=== PATIENT | male | born 1980 | race Caucasian/White ===

== ENCOUNTER → 2020-11-11 13:33 | Outpatient (BNVA) | payer OTHER, SELFPAY | PROVIDERS: PCP Internal Medicine; Visit Provider Internal Medicine Endocrinology, Diabetes & Metabolism | DX: E13.9 Other specified diabetes mellitus without complications (principal); S36.209S Unspecified injury of unspecified part of pancreas, sequela; E11.21 Type 2 diabetes mellitus with diabetic nephropathy; Z79.4 Long term (current) use of insulin | CPT/HCPCS: 82947; 99212 ==

== ENCOUNTER 2021-02-21 12:16 | Outpatient (REF) | payer OTHER, SELFPAY ==
--- NOTE | ~2021-02-21 | XR_ITS ---
EXAMINATION: BILATERAL KNEE. CLINICAL INFORMATION: Bilateral knee pain. COMPARISON: None TECHNIQUE: 3 views each knee. FINDINGS: RIGHT KNEE: There is loss of patellofemoral compartment joint space. The medial and lateral compartments are normal. There is mild anterior superior patellar enthesophytes. No abnormal joint effusion seen. There are no loose bodies. LEFT KNEE: There is minimal loss of right base. No visible acute fracture, dislocation or subluxation seen. There are no loose bodies. No abnormal joint effusion seen. XR/XR knee LT 3V IMPRESSION: Mild degenerative changes bilateral patellofemoral compartment joint space. No acute fracture dislocation or loose bodies.
--- NOTE | ~2021-02-21 | XR_ITS ---
EXAMINATION: BILATERAL KNEE. CLINICAL INFORMATION: Bilateral knee pain. COMPARISON: None TECHNIQUE: 3 views each knee. FINDINGS: RIGHT KNEE: There is loss of patellofemoral compartment joint space. The medial and lateral compartments are normal. There is mild anterior superior patellar enthesophytes. No abnormal joint effusion seen. There are no loose bodies. LEFT KNEE: There is minimal loss of right base. No visible acute fracture, dislocation or subluxation seen. There are no loose bodies. No abnormal joint effusion seen. XR/XR knee RT 3V IMPRESSION: Mild degenerative changes bilateral patellofemoral compartment joint space. No acute fracture dislocation or loose bodies.
== END 2021-02-21 12:17 | disposition home or self-care (01) ==
LOC: HO.XRAY 12:16
PROVIDERS: PCP Internal Medicine; Visit Provider Internal Medicine
DX: M25.561 Pain in right knee (principal); M25.562 Pain in left knee
CPT/HCPCS: 73562

== ENCOUNTER 2021-03-11 09:50 | Outpatient (REF) | payer OTHER, SELFPAY ==
[2021-03-11 11:12] LABS: Alanine Aminotransferase 12 U/L (0-40); Albumin Level 4.1 g/dL (3.5-5.0); Alkaline Phosphatase 110 U/L (39-117); Anion Gap 10 (12-20); Aspartate Amino Transferase 24 U/L (5-37); Bilirubin Total 0.3 mg/dL (0.0-1.0); Blood Urea Nitrogen 10 mg/dL (9-16); Carbon Dioxide 24 mmol/L (22-29); Chloride 107 mmol/L (96-108); Cholesterol 146 mg/dL; Estimated Glomerular Filt Rate > 60; Glucose Fasting 80 mg/dL (60-99); HDL Cholesterol 34 mg/dL; LDL Cholesterol Calculated 88 mg/dl; Potassium 4.2 mmol/L (3.3-5.1); Sodium 137 mmol/L (135-145); Triglycerides 122 mg/dL
[2021-03-11 11:25] LABS: Free T4 (Free Thyroxine) 1.33 ng/dL (0.71-1.85); Thyroid Stimulating Hormone 2.45 uIU/mL (0.32-4.0); Vitamin D 25-OH Total 22.4 ng/mL (>30)
[2021-03-11 11:34] LABS: Vitamin B12 208 pg/mL (200-900)
[2021-03-11 11:57] LABS: Creatinine Urine 154.55 mg/dL; Microalbum/Creatinine Ratio Ur 5.8 ug/mg cr
[2021-03-12 19:17] LABS: LDL Cholesterol Direct 96 mg/dL (<100)
[2021-03-12 20:47] LABS: C Peptide 0.13 ng/mL (0.80-3.85)
[2021-03-15 20:21] LABS: Glutamic acid decarboxylase Ab 174 IU/mL (<5)
[2021-03-19 19:52] LABS: Insulinoma associated 2 aatb <5.4 U/mL (<5.4)
[2021-03-21 00:37] LABS: Islet Cell Antibody Screen NEGATIVE (NEGATIVE)
== END 2021-03-11 09:51 | disposition home or self-care (01) ==
LOC: HO.LAB 09:50
PROVIDERS: PCP Internal Medicine; Visit Provider Internal Medicine Endocrinology, Diabetes & Metabolism
DX: E13.9 Other specified diabetes mellitus without complications (principal); S36.209S Unspecified injury of unspecified part of pancreas, sequela
CPT/HCPCS: 36415; 80053; 80061; 82043; 82306; 82607; 83721; 84439; 84443; 84681; 86255; 86341

== ENCOUNTER 2021-09-05 12:06 | Outpatient (REF) | payer OTHER, SELFPAY ==
--- NOTE | ~2021-09-05 | XR_ITS ---
EXAMINATION: XR LUMBOSACRAL SPINE WITH OBLIQUES CLINICAL INFORMATION: Pain COMPARISON: None TECHNIQUE: AP, both oblique, and lateral views of the lumbar spine. Lateral view of the lumbosacral junction. FINDINGS: No acute fracture or traumatic malalignment. Vertebral body heights maintained. Small endplate osteophytes present throughout the upper lumbar spine. Minimal dextro convex lumbar scoliosis. Mild facet arthropathy at L5-S1. Mild sclerosis along the bilateral sacroiliac joints. Paraspinal soft tissues unremarkable. XR/XR lumbar spine 4V min IMPRESSION: No acute findings. Mild lumbar spondylosis as described.
--- NOTE | ~2021-09-05 | XR_ITS ---
EXAMINATION: XR HIP, RIGHT CLINICAL INFORMATION: Pain COMPARISON: None TECHNIQUE: Two views of the right hip. FINDINGS: No acute fracture or dislocation. Femoral head is spherical. Hip joint space preserved. Small marginal osteophytes along the acetabulum. Vascular calcifications. Soft tissues otherwise unremarkable. XR/XR hip RT min 2V IMPRESSION: * No acute findings. * Small acetabular marginal osteophytes. * Vascular calcifications, relatively advanced for patient age. Recommend formal cardiovascular health risk assessment.
== END 2021-09-05 12:07 | disposition home or self-care (01) ==
LOC: HO.XRAY 12:06
PROVIDERS: PCP Internal Medicine; Visit Provider Internal Medicine
DX: M25.551 Pain in right hip (principal); M54.50 Low back pain, unspecified
CPT/HCPCS: 72110; 73502

== ENCOUNTER → 2021-10-25 10:51 | Outpatient (BNVA) | payer OTHER, SELFPAY | PROVIDERS: PCP Internal Medicine; Visit Provider Internal Medicine Endocrinology, Diabetes & Metabolism | DX: E13.9 Other specified diabetes mellitus without complications (principal); S36.209S Unspecified injury of unspecified part of pancreas, sequela; Z79.4 Long term (current) use of insulin | CPT/HCPCS: 82947; 83036; 99212 ==

== ENCOUNTER → 2021-11-01 14:08 | Outpatient (BNVA) | payer OTHER, SELFPAY | PROVIDERS: PCP Internal Medicine; Visit Provider Registered Nurse Diabetes Educator | DX: E13.9 Other specified diabetes mellitus without complications (principal); S36.209S Unspecified injury of unspecified part of pancreas, sequela | CPT/HCPCS: 99211 ==

== ENCOUNTER → 2021-12-13 10:52 | Outpatient (BNVA) | payer OTHER, SELFPAY | PROVIDERS: PCP Internal Medicine; Visit Provider Registered Nurse Diabetes Educator | DX: E13.9 Other specified diabetes mellitus without complications (principal); S36.209S Unspecified injury of unspecified part of pancreas, sequela | CPT/HCPCS: 99211 ==

== ENCOUNTER 2021-12-29 18:35 | Emergency (ER) | payer OTHER, SELFPAY ==
[2021-12-29 18:40] VITALS: BP 143/70; PULSE 102
[2021-12-29 18:41] VITALS: BP 122/73; PULSE 96; RESP 17; TEMP 36.6; O2SAT 96; BMI 25.8
--- NOTE | 2021-12-29 18:43 | ED.ALCOHOL ---
HPI - Alcohol General Chief Complaint: ETOH/Substance Use Stated Complaint: etoh Time Seen by Provider: 12/29/21 18:42 Source: patient and EMS Mode of arrival: EMS Limitations: no limitations History of Present Illness HPI narrative: Patient comes to the emergency room via EMS. A bystander called an ambulance because patient was found sitting in the grass outside of the [employer] mall. According to the patient, he has been drinking we stay all day, patient wants to drive home, but he was unable to find his car, ended up sitting in the grass. Patient states that he did not fall, no head injury, no blood thinners. Related Data Home Medications Medication Instructions Recorded Confirmed citalopram 10 mg tablet 15 mg PO DAILY tab 11/11/20 10/25/21 clonazepam 2 mg tablet 2 mg PO BID PRN tab 11/11/20 10/25/21 clonidine HCl 0.2 mg tablet 0.2 mg PO BID 11/11/20 10/25/21 folic acid 1 mg tablet 1 mg PO DAILY 11/11/20 10/25/21 lamotrigine 25 mg tablet 25 mg PO DAILY tab 11/11/20 10/25/21 magnesium 250 mg tablet 250 mg PO BID tab 11/11/20 10/25/21 quetiapine 400 mg tablet (Seroquel) 400 mg PO BEDTIME tab 11/11/20 10/25/21 thiamine HCl (vitamin B1) 50 mg 25 mg PO DAILY tab 11/11/20 10/25/21 tablet trazodone 100 mg tablet 200 mg PO BEDTIME 11/11/20 10/25/21 Previous Rx's Medication Instructions Recorded pen needle, diabetic 32 gauge x #150 ea 11/11/20 (BD July 2nd Gen Pen Needle) blood sugar diagnostic (FreeStyle #150 ea 03/08/21 Lite Strips) lancets 33 gauge (TRUEplus Lancets) #200 ea 03/08/21 insulin glargine 100 unit/mL (3 48 unit (0.48 mL) SUBCUT QAM 30 04/07/21 mL) subcutaneous pen (Lantus Days #15 ml Solostar U-100 Insulin) glucagon 3 mg/actuation nasal 3 mg INTRANASAL ONCE #1 ea 10/25/21 spray (Baqsimi) insulin aspart U-100 100 unit/mL 1 - 25 unit (0.01 - 0.25 mL) 10/31/21 (3 mL) subcutaneous pen (Novolog SUBCUT QID #30 ml Flexpen U-100 Insulin aspart) Allergies Allergy/AdvReac Type Severity Reaction Status Date / Time meropenem [MEROPENEM] Allergy Unknown SWELLING Unverified 10/25/21 11:00 penicillin G procaine Allergy Unknown itching Verified 10/25/21 11:00 Penicillins [PENICILLINS] Allergy Unknown SWELLING Unverified 10/25/21 11:00 Review of Systems Review of Systems: Constitutional : No Weight loss, No Fever, No Chills, No Night Sweats, No Fatigue, No Malaise ENT/Mouth : No Hearing loss, No Ear Pain, No Nasal Congestion, No Sinus Pain, No Hoarseness, No sore throat, No Rhinorrhea, No Swallowing Difficulty Eyes: No Eye Pain, No Swelling, No Redness, No Foreign Body, No Discharge, No Vision Changes Cardiovascular : No Chest Pain, No SOB, No Dyspnea on Exertion, No Orthopnea, No Edema, No Palpitations Respiratory : No Cough, No Sputum, No Wheezing, No Smoke Exposure, No Dyspnea Gastrointestinal : Complaining of nausea and vomiting, No Diarrhea, No Constipation, No abdominal Pain, No Hematochezia, No Melena Genitourinary : no irregular bleeding, No Dysuria, No Urinary Frequency, No Hematuria, No Urinary Incontinence, No Urgency, No Flank Pain, No Urinary Flow Changes, No Hesitancy Musculoskeletal : No joint pain, No Myalgias, No Joint Swelling Skin : No Skin Lesions, No rash Neuro : No Weakness, No Numbness, No Paresthesias, No Loss of Consciousness, No Dizziness, No Headache Psych : No Anxiety/Panic, No Depression, No SI/HI/AH/VH, No Social Issues, Heme/Lymph: No Bruising, No Bleeding,No Lymphadenopathy Endocrine : No Polyuria, No Polydipsia, No Temperature Intolerance [facility] Past Medical History Medical History Bipolar disorder 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 Mother Diabetes Social History Social History (Updated 10/25/21 @ 11:01 by VINAY Francisco) Alcohol intake: never Patient Tobacco Use Status: Never used Tobacco Advance Directives: No Advance Directives Information Provided: Yes Physical Exam ED Vital Signs: Vital Signs - 24 hr 12/29/21 18:41 Temperature 97.8 F Pulse Rate 96 Respiratory Rate 17 Blood Pressure 122/73 Pulse Oximetry 96 BMI result Body Mass Index 25.8 Const Other: Appearance: Alert. No acute distress, intoxicated Eyes: Pupils equal, round and reactive to light. ENT: Pharynx normal. Neck: Normal inspection. Neck supple. No lymph nodes noted. No crepitus CVS: Normal heart rate and rhythm. Pulses normal. Normal S1 and S2 Respiratory: No respiratory distress. Breath sounds normal. No Wheezing. No rales Abdomen: Soft and nontender. No rigidity. No distention. Actively vomiting Skin: Skin warm and dry. Normal skin color. Normal skin turgor. Extremities: No lower extremity edema. No Lacerations. No Rash Neuro: A bit slurred speech, cranial nerves 2-12 grossly intact Psych: calm, cooperative, normal affect Course Course Course Narrative: Patient was given p.o. Zofran. Patient declined IM medication. Patient denies hitting his head or losing consciousness. Admits to heavily drinking alcohol today. Patient denies SI/HI Plan is to metabolize to freedom, physician of sedation started at 18:52 Patient had been walking around the emergency room, patient stated that he felt better. Patient did not wait for his discharge papers. Per nursing, patient had a steady gait, patient eloped MDM - Alcohol Lab Data Labs: Lab Results 12/29/21 Range/Units 19:41 POC Glucose 259 H (60-115) mg/dL Discharge Plan Discharge Clinical Impression: Alcohol intoxication Patient Disposition: Elopement Prescriptions: No Action (DME) FreeStyle Lite Strips Strip See Rx Instructions .Route Qty: 150 11RF Rx Instructions: Four times a day (DME) lancets [TRUEplus Lancets] 33 gauge misc See Rx Instructions .Route Qty: 200 11RF Rx Instructions: Four times a day Lantus Solostar U-100 Insulin 100 unit/mL (3 mL) insulin pen 48 unit subcut QAM 30 Days Qty: 15 3RF insulin aspart U-100 [Novolog Flexpen U-100 Insulin] 100 unit/mL (3 mL) insulin pen 1 - 25 unit subcut QID Qty: 30 3RF quetiapine [Seroquel] 400 mg tablet 400 mg PO BEDTIME 0RF trazodone 100 mg tablet 200 mg PO BEDTIME 0RF folic acid 1 mg tablet 1 mg PO DAILY 0RF magnesium 250 mg tablet 250 mg PO BID 0RF thiamine HCl (vitamin B1) 50 mg tablet 25 mg PO DAILY 0RF lamotrigine 25 mg tablet 25 mg PO DAILY 0RF citalopram 10 mg tablet 15 mg PO DAILY 0RF clonazepam 2 mg tablet 2 mg PO BID PRN0RF Rx Instructions: administer 30 minutes before bedtime clonidine HCl 0.2 mg tablet 0.2 mg PO BID 0RF (DME) pen needle, diabetic [BD July 2nd Gen Pen Needle] 32 gauge x 5/32 needle See Rx Instructions .MEDSUPPLY Qty: 150 4RF Rx Instructions: 5 times a day Baqsimi 3 mg/actuation spray,non-aerosol 3 mg intranasal ONCE Qty: 1 4RF
[2021-12-29] MEDS: Ondansetron ODT 4 MG TAB.RAPDIS TRANSLINGU (19:18)
[2021-12-29 20:28] LABS: Glucose, Whole Blood 259 mg/dL (60-115)
--- NOTE | 2021-12-29 23:32 | PC.NURSE ---
Pt requesting to leave, aware. Pt ambulating with a steady gait. agreeable to DC. Pt eloping from hospital bed prior to discharge paperwork being prepared by . aware.
== END 2021-12-29 23:33 | disposition left against medical advice (07) ==
PROVIDERS: Emergency Provider Emergency Medicine
DX: F10.920 Alcohol use, unspecified with intoxication, uncomplicated (principal); Y90.9 Presence of alcohol in blood, level not specified; E11.9 Type 2 diabetes mellitus without complications; Z79.4 Long term (current) use of insulin
CPT/HCPCS: 82947; 99283; 99284

== ENCOUNTER 2022-01-06 10:00 | Outpatient (RCR) | payer OTHER, SELFPAY ==
[2021-11-15 10:11] VITALS: BP 127/87; PULSE 91; O2SAT 97
== END 2022-02-21 08:16 | disposition home or self-care (01) ==
LOC: HO.PT 10:00
PROVIDERS: PCP Internal Medicine; Visit Provider Internal Medicine
DX: M25.561 Pain in right knee (principal); M25.562 Pain in left knee
CPT/HCPCS: 97110; 97140; 97162; 97530

== ENCOUNTER 2022-01-27 19:22 | Inpatient (IN) | payer OTHER, SELFPAY ==
[2022-01-27] VITALS (14 sets, daily range): BP systolic 110–166; BP diastolic 60–96; PULSE 100–130; RESP 16–30; TEMP 33–36.4; O2SAT 10–100; BMI 26.8
--- NOTE | 2022-01-27 | ECG_ITS ---
Test Reason : cx pain Blood Pressure : / mmHG Vent. Rate : 126 BPM Atrial Rate : 126 BPM P-R Int : 130 ms QRS Dur : 086 ms QT Int : 312 ms P-R-T Axes : 063 023 024 degrees QTc Int : 451 ms Sinus tachycardia Possible Left atrial enlargement Minimal voltage criteria for LVH, may be normal variant ( Sumit product ) Borderline ECG When compared with ECG of 13-JAN-2019 09:58, T wave inversion now evident in Inferior leads Referred By: Evelina Gamino Electronically Signed By:APOORVA GONZALES MD
--- NOTE | ~2022-01-27 | XR_ITS ---
EXAMINATION: XR CHEST CLINICAL INFORMATION: Endotracheal tube and central line placement COMPARISON: 01/27/2022 TECHNIQUE: Frontal view of the chest was obtained. FINDINGS: There is an endotracheal tube in good position breech centimeters above the level the juan. There is a right internal jugular vein central venous catheter with distal tip in the SVC. No pneumothorax There is a nasogastric tube extending into the body of the stomach. Long bones are present. There is increasing mild perihilar interstitial and groundglass opacities diffusely within the bilateral lung parenchyma. XR/XR chest 1V IMPRESSION: Support lines and tubes in good positions as described above. Increasing interstitial and groundglass opacities in the bilateral lung parenchyma likely representing underlying edema
--- NOTE | ~2022-01-27 | XR_ITS ---
EXAMINATION: XR CHEST CLINICAL INFORMATION: Chest pain COMPARISON: 01/13/2019 TECHNIQUE: Frontal view of the chest was obtained. FINDINGS: Low lung volumes. Given this there is no convincing evidence for an acute process. No obvious failure or infiltrate. No effusion. Air-filled bowel below left hemidiaphragm. XR/XR chest 1V IMPRESSION: Low lung volumes. No convincing evidence for an acute finding in the chest.
--- NOTE | ~2022-01-27 | CT_ITS ---
EXAMINATION: CT soft tissue neck wo con, CT head/brain wo con, CT abdomen pelvis wo con CLINICAL INFORMATION: Abdominal pain. Altered mental status. Neck swelling. COMPARISON: CT head 01/13/2019. CT abdomen pelvis 01/13/2019. TECHNIQUE: Unenhanced CT the head, unenhanced CT of the neck, unenhanced CT of abdomen pelvis all with multiple coronal and sagittal reformatted images. Intravenous Contrast: None This CT examination was performed using dose optimization techniques as appropriate, variously including the following: *Automated exposure control *Adjustment of mA and/or kV according to patient size (this includes techniques or standardized protocols for targeted exams where dose is matched to indication/reason for exam; i.e. extremities or head) *Use of iterative reconstruction technique DLP: 2514 mGy-cm FINDINGS: CT head: Mild diffuse commensurate prominence of ventricles and sulci is noted. No intracranial hemorrhage, tumors or acute infarcts are visualized. Segmental calcific atherosclerosis of the cavernous portions of the internal carotid arteries. Normal appearance of the orbits and globes. No significant opacification of the visualized paranasal sinuses, mastoid air cells and middle ear cavities. CT NECK: Endotracheal and enteric tubes are noted. A right internal jugular catheter is partially visualized. Making allowances for the endotracheal and enteric tubes, the larynx and pharynx are normal in appearance. The parotid, submandibular and visualized sublingual glands are normal in appearance. No cervical lymphadenopathy identified. The thyroid is normal in appearance. Dense bilateral carotid bulb calcific atherosclerotic plaques are noted. No supraclavicular tumors visualized. Partial visualization is made of bibasilar dependent atelectasis of the lungs. No pneumothoraces are noted. Scattered calcific atherosclerosis is noted within the transverse aorta. The endotracheal tube terminates approximately 3.5 cm superior to the juan. CT abdomen pelvis: Lung bases: Partially visualized bibasilar atelectasis. Liver: Diffuse hepatic steatosis. Biliary system: Normal appearance of the gallbladder. No biliary duct dilatation. Pancreas: Scattered coarse pancreatic dystrophic calcifications. No acute appearing peripancreatic inflammatory changes. Spleen: Normal. Adrenal glands: Normal. Kidneys: No hydronephrosis or perinephric inflammatory changes. 1 mm nonobstructing calculus within the interpolar segment of the right kidney. No ureterectasis. Urinary bladder: Decompressed. Philippe catheter in place with nondependent gas and urinary bladder lumen. Gastrointestinal system: Borderline concentric mural thickening of the descending colon is noted though: Wall is suboptimally visualized in the absence of intravenous contrast agent. The terminal ileum is normal in appearance. The appendix is not definitively visualized. No pericecal inflammatory changes noted. No free intraperitoneal fluid or gas collections. Normal appearance of the sigmoid and small bowel mesentery is. Enteric tube terminates within the stomach which demonstrates moderate fluid distention. Abdominal wall: No hernias. Viscera: Normal appearance of the prostate and seminal vesicles. Abdominal lymphovascular system: Mild scattered calcific atherosclerosis. Retroaortic left renal vein. Diffuse vascular calcifications which may represent Monckeberg type vascular calcifications. Osseous structures: No suspicious abnormalities. CT/CT soft tissue neck wo con IMPRESSION: Unenhanced CT the head: *No acute intercranial abnormalities. Unenhanced CT of the neck: *No tumors or lymphadenopathy identified. No soft tissue hematomas or suspicious fluid collections. *Right internal jugular catheter coursing within the superior vena cava. *No tracheal tube terminating 3.5 cm superior to the juan. *Partially visualized enteric tube coursing within the esophagus. CT abdomen and pelvis: *Borderline concentric mural thickening of the descending colon which could represent colitis. The descending colonic wall measures up to 9 mm in width, slightly above normal limits of size. No thoracic descending colon is decompressed limiting precise evaluation of the wall of the descending colon. No pericolonic inflammatory changes. No free intraperitoneal fluid or gas collections. No additional possible acute abnormalities identified. *Diffuse hepatic steatosis. *Diffuse atherosclerotic and possible Monckeberg type vascular calcifications with the latter possibly secondary to diabetes mellitus or long-standing renal disease. *Single nonobstructing punctate 1 mm calculus within the right renal pelvis. *Diffuse pancreatic dystrophic calcification suspicious for the sequela of prior chronic pancreatitis. No evidence of acute pancreatitis.
--- NOTE | ~2022-01-27 | XR_ITS ---
EXAMINATION: XR CHEST CLINICAL INFORMATION: Suspected pneumothorax. COMPARISON: Chest done on 01/27/2022. TECHNIQUE: Frontal view of the chest was obtained. FINDINGS: The tip of the right IJ catheter is projecting at the cavoatrial junction. The tip of the endotracheal tube is located approximately 5.5 cm above the level of the juan. The tip of the NG tube is below the level of the diaphragm and is outside the [id number]. Bibasilar airspace opacities are noted (left greater than right), likely represent hypoventilatory, atelectatic changes. No evidence of any definite pneumothorax. Possible small left-sided pleural effusion. The cardiac mediastinal silhouette is within normal limits. XR/XR chest 1V IMPRESSION: 1. The tip of the NG tube is subdiaphragmatic however is outside the [id number]. 2. The tip of the right IJ central line and endotracheal tube appear in satisfactory positions 3. Bibasilar airspace disease (left greater than right), and trace left-sided pleural effusion. 4. No radiographic evidence of any pneumothorax.
--- NOTE | 2022-01-27 19:42 | ED.CHESTPAIN ---
HPI - Chest Pain General Chief Complaint: Chest Pain Stated Complaint: tachycardia Time Seen by Provider: 01/27/22 19:35 Source: patient Mode of arrival: EMS Limitations: no limitations History of Present Illness MD complaint: chest pain Pertinent past history: other (alcoholism, diabetes, pancreatitis) Onset (ago): minute(s) (just prior to arrival) Timing of current episode: constant Prior episodes: No Onset: during rest Pain location: substernal Pain radiation: none Severity: moderate Quality: other ( pain ) Relieving factors: nothing Exacerbating factors: nothing Context: other (denies drinking or drug use, states it just happened he didn't eat dinner tonight, sugars have been in the 200s. ) Associated symptoms: nausea, vomiting, diaphoresis and dyspnea Treatment prior to arrival: other (EMS gave calcium prior to arrival for peaked t waves) Related Data Home Medications Medication Instructions Recorded Confirmed citalopram 10 mg tablet 15 mg PO DAILY 11/11/20 10/25/21 clonazepam 2 mg tablet 2 mg PO BID PRN 11/11/20 10/25/21 clonidine HCl 0.2 mg tablet 0.2 mg PO BID 11/11/20 10/25/21 folic acid 1 mg tablet 1 mg PO DAILY 11/11/20 10/25/21 lamotrigine 25 mg tablet 25 mg PO DAILY 11/11/20 10/25/21 magnesium 250 mg tablet 250 mg PO BID 11/11/20 10/25/21 quetiapine 400 mg tablet (Seroquel) 400 mg PO BEDTIME 11/11/20 10/25/21 thiamine HCl (vitamin B1) 50 mg 25 mg PO DAILY 11/11/20 10/25/21 tablet trazodone 100 mg tablet 200 mg PO BEDTIME 11/11/20 10/25/21 Previous Rx's Medication Instructions Recorded pen needle, diabetic 32 gauge x #150 ea 11/11/20 (BD July 2nd Gen Pen Needle) blood sugar diagnostic (FreeStyle #150 ea 03/08/21 Lite Strips) lancets 33 gauge (TRUEplus Lancets) #200 ea 03/08/21 insulin glargine 100 unit/mL (3 48 unit (0.48 mL) subcut QAM 30 04/07/21 mL) subcutaneous pen (Lantus days #15 mL Solostar U-100 Insulin) glucagon 3 mg/actuation nasal 3 mg intranasal ONCE #1 ea 10/25/21 spray (Baqsimi) insulin aspart U-100 100 unit/mL 1 - 25 unit (0.01 - 0.25 mL) 10/31/21 (3 mL) subcutaneous pen (Novolog subcut QID #30 mL Flexpen U-100 Insulin aspart) Allergies Allergy/AdvReac Type Severity Reaction Status Date / Time meropenem [MEROPENEM] Allergy Unknown SWELLING Unverified 10/25/21 11:00 penicillin G procaine Allergy Unknown itching Verified 10/25/21 11:00 Penicillins [PENICILLINS] Allergy Unknown SWELLING Unverified 10/25/21 11:00 Review of Systems Review of Systems: Constitutional : No Weight loss, No Fever, No Chills ENT/Mouth : No sore throat, No Rhinorrhea Eyes: No Eye Pain, No Swelling Cardiovascular : pos Chest Pain, pos SOB, no Dyspnea on Exertion, No Orthopnea, No Edema, No Palpitations Respiratory : No Cough, No Sputum Gastrointestinal : pos Nausea, No Vomiting, No Diarrhea, No abdominal Pain, No Hematochezia, No Melena Genitourinary : No Dysuria, No Urinary Frequency Musculoskeletal : No joint pain, No Myalgias, No Joint Swelling Skin : No Skin Lesions, No rash Neuro : No Weakness, No Numbness, No Dizziness, No Headache Psych : No Anxiety/Panic, No Depression Heme/Lymph: No Bruising, No Lymphadenopathy Endocrine : No Polyuria, No Polydipsia All other systems reviewed and are negative [facility] Past Medical History Attestation statement: The following information was validated with the patient. 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 Mother Diabetes Social History Social History Alcohol intake: current Alcohol intake frequency: 0-2 drinks per day Patient Tobacco Use Status: Never used Tobacco Use of substances other than those prescribed or required for medical reasons: No Advance Directives: No Physical Exam Vital Signs: Vital Signs: Last Vital Signs Temp 97.5 F 01/27/22 19:36 Pulse 127 H 01/28/22 00:29 Resp 18 01/28/22 00:29 BP 121/70 01/28/22 00:29 Pulse Ox 100 01/28/22 00:29 O2 Del Method 01/27/22 22:30 O2 Flow Rate 10 01/27/22 21:46 FiO2 100 01/27/22 23:51 Oxygen Flow Rate 2 01/27/22 19:29 BMI result Body Mass Index 26.8 Appearance: Alert. Oriented X3. Anxious mild acute distress. Eyes: Pupils equal, round and reactive to light. ENT: Pharynx very dry MM Neck: Normal inspection. Neck supple. CVS: tachycardic heart rate and rhythm. Pulses normal. Respiratory: No respiratory distress. Breath sounds normal. Abdomen: Soft and mildly distended Skin: Skin warm and diaphoretic. Normal skin color. Normal skin turgor. Extremities: No lower extremity edema. No calf ttp Neuro: Oriented X 3. No motor deficit. No sensory deficit. Course Course Course Narrative: suspect AKA, DKA, denies any other toxic ingestion at this time when questioned started on low dose insulin drip lactic acid 19 patient now states he drank very heavy last night at least 3 pints of hard liquor patient started to scream that he had difficulty breathing, voice became muffled - posterior view of throat showed swelling of soft palate/uvula clear in nature and boggy consistent with allergic reaction. At this time concern for upper airway reaction - IM epi, benadryl, solumedrol, pepcid ordered. 6.0 ETT at bedside, patient placed on cool mist. Unknown cause of reaction given no medications he would have reaction to. Has taken insulin and other medications before. Doing better after medications. Patient also states this happened at home and went away around 7pm. patient very anxious again screaming he can't breathe at this time will intubate patient for airway protection sent off tox labs discussed with poison control based off labs at this time they state they cannot recommend fomepizole - will have fellow call us. initial osm gap 21 discussion with poison control no large osm gap at this time not strongly convinced that the patient has toxic alcohol if AG is increasing and serum osm is decreasing then would suspect toxic alcohol and would need to start fomepizole. We talked more about his presentation along with his angioedema and intubation decision to start fomepizole was made tachycardia, lactic acidosis, LFTs, plt count due to ETOH and toxic/metabolic acidosis not infection or severe sepsis patient maxed on versed, propofol and fentanyl still awake and attempting to talk / reach up at ETT tube - will start on precedex ICU PA aware Procedures Procedure Narrative Procedure Narrative: limited view bedside ECHO - parasternal, subxiphoid and apical - no effusion seen Central Line Placement Right IJ: Time Out Performed: Yes Patient Placed on Monitor/Pulse Ox: Yes MD Prep: mask, gown and gloves Central Line Prep: Chlorhexidine scrub and sterile drapes applied Local Anesthetic: lidocaine 1% Amount of anesthesia used (mL): 3 Central Line Lumen Inserted: triple Post Procedure: sutured in place, good blood return, all ports aspirated, flushed, capped and sterile dressing applied Post Procedure X-Ray: tip of catheter in good position and no pneumothorax seen Patient Tolerated Procedure: well and no complications Complications: none Additional Comments: US guided Intubation Time out performed: Yes sedative: Etomidate Mg Given: 20 paralytic: Rocuronium Mg Given: 75 Laryngoscope: other (glidescope 4.0) ET Tube Size: 6 ET Tube Uncuffed: Yes Tube Secured Depth (cm): 22 Tube Secured Location: teeth Tube Placement Confirmation: visualized tube passing through cords, equal breath sounds bilaterally, no breath sounds over epigastrium and confirmation by capnometry Patient Tolerated Procedure: well Intubation Complications: none Additional Comments: severely swollen cords, red, swollen very tight - 6.0 tube passed. boggy and edematous. MDM - Chest Pain MDM Narrative Medical decision making narrative: 41 yo male with hx of IDDM, pancreatitis due to ETOH abuse, here with c/o chest pain and dyspnea while watching TV - he has a dry mouth and reports dark colored urine today. At this time will obtain basic labs, troponin, EKG< CXR, ddimer. IVF x 2L, zofran. He has peaked t waves on EKG could be hyperkalemia and DKA - IV bicarb, albuterol ordered as well. Given calcium en route. Has hx of ETOH pancreatitis as well - IV ativan ordered could be component of withdrawal states his last drink was last night. Just seen here 12/29 for intoxication Lab Data Result diagrams: 01/27/22 19:58 01/27/22 19:58 Labs: Lab Results 01/27/22 01/27/22 01/27/22 Range/Units 19:41 19:57 19:57 WBC (4.8-10.8) X10*3/uL RBC (4.60-5.80) X10*6/uL Hgb (14.0-18.0) g/dl Hct (42.0-52.0) % MCV (80.0-98.0) fL MCH (27.0-33.0) pg MCHC (31.0-36.0) g/dl RDW (11.0-16.0) % Plt Count (160-400) X10*3/uL MPV (9.4-12.4) fL Immature Gran % (Auto) (0.0-0.4) % Neut % (Auto) (45-73) % Lymph % (Auto) (20-40) % Cole % (Auto) (2-11) % Eos % (Auto) (0-4) % Baso % (Auto) (0-2) % Lymph # (Auto) (1.2-4.9) X10*3/uL Cole # (Auto) (0.1-1.2) X10*3/uL Eos # (Auto) (0.0-0.4) X10*3/uL Baso # (Auto) (0.0-0.2) X10*3/uL Abs Immat Gran (auto) (0.00-0.03) X10*3/uL Absolute Neuts (auto) (2.0-8.3) x10*3/uL Absolute Nucleated RBC (0.0-0.012) X10*3/uL Nucleated RBC % (auto) (0.0-0.2) /100WBC Smear Tech's Comments PT (9.9-13.0) SEC INR (0.9-1.1) D-Dimer High Sensitivty NG/ML VBG pH VBG pCO2 VBG pO2 VBG HCO3 VBG O2 Saturation VBG Base Excess Sodium (135-145) mmol/L Potassium (3.3-5.1) mmol/L Chloride (96-108) mmol/L Carbon Dioxide (22-29) mmol/L Anion Gap BUN (9-16) mg/dL Creatinine (0.5-1.4) mg/dL Estim Creat Clear Calc Estimated GFR POC Glucose 356 H* (60-115) mg/dL Random Glucose (60-115) mg/dL Osmolality (281-305) mosm/kg Lactic Acid 19.6 H* (0.5-2.0) mmol/L Lactic Acid F/U @ 2Hr (0.5-2.0) mmol/L Calcium (8.4-10.2) mg/dL Magnesium (1.6-2.6) mg/dL Total Bilirubin (0.0-1.0) mg/dL Direct Bilirubin (0.0-0.5) mg/dL AST (5-37) U/L ALT (0-40) U/L Alkaline Phosphatase (39-117) U/L Troponin I High Sens < 3.5 (<3.5-35.0) ng/L Total Protein (6.5-8.0) g/dL Albumin (3.5-5.0) g/dL Lipase (8-78) U/L Urine Color Urine Appearance Urine pH (5.0-8.0) Ur Specific [place] (1.005-1.025) Urine Protein (NEG-TRACE) MG/DL Urine Glucose (UA) (NEG) MG/DL Urine Ketones (NEG) MG/DL Urine Blood (NEG) Urine Nitrite (NEG) Ur Leukocyte Esterase (NEG) Urine RBC (0) /HPF Urine WBC (0-4) /HPF Ur Squamous Epith Cells /LPF Urine Bacteria /LPF Hyaline Casts /LPF Granular Casts /LPF Urine Mucus /LPF Urine Osmolality (373-1093) mosm/kg Urine Opiates Screen (Not Detect) Urine Fentanyl Screen (Not Detect) Ur Barbiturates Screen (Not Detect) Ur Phencyclidine Scrn (Not Detect) Ur Amphetamines Screen (Not Detect) U Benzodiazepines Scrn (Not Detect) Urine Cocaine Screen (Not Detect) U Marijuana (THC) Screen (Not Detect) Volat Analys Perform On Ethyl Alcohol mg/dL Methyl Alcohol Level Acetone, Qual (Negative) COVID-19 (ALLEN) (Negative) COVID-19 Clin Com 01/27/22 01/27/22 01/27/22 Range/Units 19:57 19:57 19:57 WBC (4.8-10.8) X10*3/uL RBC (4.60-5.80) X10*6/uL Hgb (14.0-18.0) g/dl Hct (42.0-52.0) % MCV (80.0-98.0) fL MCH (27.0-33.0) pg MCHC (31.0-36.0) g/dl RDW (11.0-16.0) % Plt Count (160-400) X10*3/uL MPV (9.4-12.4) fL Immature Gran % (Auto) (0.0-0.4) % Neut % (Auto) (45-73) % Lymph % (Auto) (20-40) % Cole % (Auto) (2-11) % Eos % (Auto) (0-4) % Baso % (Auto) (0-2) % Lymph # (Auto) (1.2-4.9) X10*3/uL Cole # (Auto) (0.1-1.2) X10*3/uL Eos # (Auto) (0.0-0.4) X10*3/uL Baso # (Auto) (0.0-0.2) X10*3/uL Abs Immat Gran (auto) (0.00-0.03) X10*3/uL Absolute Neuts (auto) (2.0-8.3) x10*3/uL Absolute Nucleated RBC (0.0-0.012) X10*3/uL Nucleated RBC % (auto) (0.0-0.2) /100WBC Smear Tech's Comments PT (9.9-13.0) SEC INR (0.9-1.1) D-Dimer High Sensitivty NG/ML VBG pH Cancelled VBG pCO2 Cancelled VBG pO2 Cancelled VBG HCO3 Cancelled VBG O2 Saturation Cancelled VBG Base Excess Cancelled Sodium (135-145) mmol/L Potassium (3.3-5.1) mmol/L Chloride (96-108) mmol/L Carbon Dioxide (22-29) mmol/L Anion Gap BUN (9-16) mg/dL Creatinine (0.5-1.4) mg/dL Estim Creat Clear Calc Estimated GFR POC Glucose (60-115) mg/dL Random Glucose (60-115) mg/dL Osmolality (281-305) mosm/kg Lactic Acid (0.5-2.0) mmol/L Lactic Acid F/U @ 2Hr (0.5-2.0) mmol/L Calcium (8.4-10.2) mg/dL Magnesium (1.6-2.6) mg/dL Total Bilirubin (0.0-1.0) mg/dL Direct Bilirubin (0.0-0.5) mg/dL AST (5-37) U/L ALT (0-40) U/L Alkaline Phosphatase (39-117) U/L Troponin I High Sens (<3.5-35.0) ng/L Total Protein (6.5-8.0) g/dL Albumin (3.5-5.0) g/dL Lipase (8-78) U/L Urine Color Urine Appearance Urine pH (5.0-8.0) Ur Specific [place] (1.005-1.025) Urine Protein (NEG-TRACE) MG/DL Urine Glucose (UA) (NEG) MG/DL Urine Ketones (NEG) MG/DL Urine Blood (NEG) Urine Nitrite (NEG) Ur Leukocyte Esterase (NEG) Urine RBC (0) /HPF Urine WBC (0-4) /HPF Ur Squamous Epith Cells /LPF Urine Bacteria /LPF Hyaline Casts /LPF Granular Casts /LPF Urine Mucus /LPF Urine Osmolality (373-1093) mosm/kg Urine Opiates Screen (Not Detect) Urine Fentanyl Screen (Not Detect) Ur Barbiturates Screen (Not Detect) Ur Phencyclidine Scrn (Not Detect) Ur Amphetamines Screen (Not Detect) U Benzodiazepines Scrn (Not Detect) Urine Cocaine Screen (Not Detect) U Marijuana (THC) Screen (Not Detect) Volat Analys Perform On Ethyl Alcohol 77 mg/dL Methyl Alcohol Level Acetone, Qual (Negative) COVID-19 (ALLEN) Negative (Negative) COVID-19 Clin Com See Note 01/27/22 01/27/22 01/27/22 Range/Units 19:58 19:58 19:58 WBC 11.7 H (4.8-10.8) X10*3/uL RBC 5.21 (4.60-5.80) X10*6/uL Hgb 15.4 (14.0-18.0) g/dl Hct 49.1 (42.0-52.0) % MCV 94.2 (80.0-98.0) fL MCH 29.6 (27.0-33.0) pg MCHC 31.4 (31.0-36.0) g/dl RDW 16.0 (11.0-16.0) % Plt Count 125 L (160-400) X10*3/uL MPV 10.2 (9.4-12.4) fL Immature Gran % (Auto) 1.3 H (0.0-0.4) % Neut % (Auto) 79.2 H (45-73) % Lymph % (Auto) 11.1 L (20-40) % Cole % (Auto) 7.8 (2-11) % Eos % (Auto) 0.2 (0-4) % Baso % (Auto) 0.4 (0-2) % Lymph # (Auto) 1.3 (1.2-4.9) X10*3/uL Cole # (Auto) 0.9 (0.1-1.2) X10*3/uL Eos # (Auto) 0.0 (0.0-0.4) X10*3/uL Baso # (Auto) 0.1 (0.0-0.2) X10*3/uL Abs Immat Gran (auto) 0.15 H (0.00-0.03) X10*3/uL Absolute Neuts (auto) 9.2 H (2.0-8.3) x10*3/uL Absolute Nucleated RBC 0.000 (0.0-0.012) X10*3/uL Nucleated RBC % (auto) 0.0 (0.0-0.2) /100WBC Smear Tech's Comments VERIFIED PT 12.3 (9.9-13.0) SEC INR 1.1 (0.9-1.1) D-Dimer High Sensitivty 263 NG/ML VBG pH VBG pCO2 VBG pO2 VBG HCO3 VBG O2 Saturation VBG Base Excess Sodium 138 (135-145) mmol/L Potassium 4.7 (3.3-5.1) mmol/L Chloride 90 L (96-108) mmol/L Carbon Dioxide < 5 L* D (22-29) mmol/L Anion Gap TNP BUN 10 (9-16) mg/dL Creatinine 1.41 H (0.5-1.4) mg/dL Estim Creat Clear Calc 63.8 Estimated GFR 55 POC Glucose (60-115) mg/dL Random Glucose 356 H* (60-115) mg/dL Osmolality (281-305) mosm/kg Lactic Acid (0.5-2.0) mmol/L Lactic Acid F/U @ 2Hr (0.5-2.0) mmol/L Calcium 10.2 D (8.4-10.2) mg/dL Magnesium 2.3 (1.6-2.6) mg/dL Total Bilirubin 0.5 (0.0-1.0) mg/dL Direct Bilirubin 0.2 (0.0-0.5) mg/dL AST 83 H (5-37) U/L ALT 42 H (0-40) U/L Alkaline Phosphatase 194 H D (39-117) U/L Troponin I High Sens (<3.5-35.0) ng/L Total Protein 9.2 H D (6.5-8.0) g/dL Albumin 4.9 (3.5-5.0) g/dL Lipase 22 (8-78) U/L Urine Color Urine Appearance Urine pH (5.0-8.0) Ur Specific [place] (1.005-1.025) Urine Protein (NEG-TRACE) MG/DL Urine Glucose (UA) (NEG) MG/DL Urine Ketones (NEG) MG/DL Urine Blood (NEG) Urine Nitrite (NEG) Ur Leukocyte Esterase (NEG) Urine RBC (0) /HPF Urine WBC (0-4) /HPF Ur Squamous Epith Cells /LPF Urine Bacteria /LPF Hyaline Casts /LPF Granular Casts /LPF Urine Mucus /LPF Urine Osmolality (373-1093) mosm/kg Urine Opiates Screen (Not Detect) Urine Fentanyl Screen (Not Detect) Ur Barbiturates Screen (Not Detect) Ur Phencyclidine Scrn (Not Detect) Ur Amphetamines Screen (Not Detect) U Benzodiazepines Scrn (Not Detect) Urine Cocaine Screen (Not Detect) U Marijuana (THC) Screen (Not Detect) Volat Analys Perform On Ethyl Alcohol mg/dL Methyl Alcohol Level Acetone, Qual Small H (Negative) COVID-19 (ALLEN) (Negative) COVID-19 Clin Com 01/27/22 01/27/22 01/27/22 Range/Units 19:58 20:04 20:25 WBC (4.8-10.8) X10*3/uL RBC (4.60-5.80) X10*6/uL Hgb (14.0-18.0) g/dl Hct (42.0-52.0) % MCV (80.0-98.0) fL MCH (27.0-33.0) pg MCHC (31.0-36.0) g/dl RDW (11.0-16.0) % Plt Count (160-400) X10*3/uL MPV (9.4-12.4) fL Immature Gran % (Auto) (0.0-0.4) % Neut % (Auto) (45-73) % Lymph % (Auto) (20-40) % Cole % (Auto) (2-11) % Eos % (Auto) (0-4) % Baso % (Auto) (0-2) % Lymph # (Auto) (1.2-4.9) X10*3/uL [place] # (Auto) (0.1-1.2) X10*3/uL Eos # (Auto) (0.0-0.4) X10*3/uL Baso # (Auto) (0.0-0.2) X10*3/uL Abs Immat Gran (auto) (0.00-0.03) X10*3/uL Absolute Neuts (auto) (2.0-8.3) x10*3/uL Absolute Nucleated RBC (0.0-0.012) X10*3/uL Nucleated RBC % (auto) (0.0-0.2) /100WBC Smear Tech's Comments PT (9.9-13.0) SEC INR (0.9-1.1) D-Dimer High Sensitivty NG/ML VBG pH 6.90 L* VBG pCO2 17 VBG pO2 172 VBG HCO3 3 L VBG O2 Saturation 98.0 VBG Base Excess -28.1 Sodium (135-145) mmol/L Potassium (3.3-5.1) mmol/L Chloride (96-108) mmol/L Carbon Dioxide (22-29) mmol/L Anion Gap BUN (9-16) mg/dL Creatinine (0.5-1.4) mg/dL Estim Creat Clear Calc Estimated GFR POC Glucose 326 H (60-115) mg/dL Random Glucose (60-115) mg/dL Osmolality 342 H (281-305) mosm/kg Lactic Acid (0.5-2.0) mmol/L Lactic Acid F/U @ 2Hr (0.5-2.0) mmol/L Calcium (8.4-10.2) mg/dL Magnesium (1.6-2.6) mg/dL Total Bilirubin (0.0-1.0) mg/dL Direct Bilirubin (0.0-0.5) mg/dL AST (5-37) U/L ALT (0-40) U/L Alkaline Phosphatase (39-117) U/L Troponin I High Sens (<3.5-35.0) ng/L Total Protein (6.5-8.0) g/dL Albumin (3.5-5.0) g/dL Lipase (8-78) U/L Urine Color Urine Appearance Urine pH (5.0-8.0) Ur Specific [place] (1.005-1.025) Urine Protein (NEG-TRACE) MG/DL Urine Glucose (UA) (NEG) MG/DL Urine Ketones (NEG) MG/DL Urine Blood (NEG) Urine Nitrite (NEG) Ur Leukocyte Esterase (NEG) Urine RBC (0) /HPF Urine WBC (0-4) /HPF Ur Squamous Epith Cells /LPF Urine Bacteria /LPF Hyaline Casts /LPF Granular Casts /LPF Urine Mucus /LPF Urine Osmolality (373-1093) mosm/kg Urine Opiates Screen (Not Detect) Urine Fentanyl Screen (Not Detect) Ur Barbiturates Screen (Not Detect) Ur Phencyclidine Scrn (Not Detect) Ur Amphetamines Screen (Not Detect) U Benzodiazepines Scrn (Not Detect) Urine Cocaine Screen (Not Detect) U Marijuana (THC) Screen (Not Detect) Volat Analys Perform On Ethyl Alcohol mg/dL Methyl Alcohol Level Acetone, Qual (Negative) COVID-19 (ALLEN) (Negative) COVID-19 Clin Com 01/27/22 01/27/22 01/27/22 Range/Units 21:10 21:41 22:20 WBC (4.8-10.8) X10*3/uL RBC (4.60-5.80) X10*6/uL Hgb (14.0-18.0) g/dl Hct (42.0-52.0) % MCV (80.0-98.0) fL MCH (27.0-33.0) pg MCHC (31.0-36.0) g/dl RDW (11.0-16.0) % Plt Count (160-400) X10*3/uL MPV (9.4-12.4) fL Immature Gran % (Auto) (0.0-0.4) % Neut % (Auto) (45-73) % Lymph % (Auto) (20-40) % Cole % (Auto) (2-11) % Eos % (Auto) (0-4) % Baso % (Auto) (0-2) % Lymph # (Auto) (1.2-4.9) X10*3/uL [place] # (Auto) (0.1-1.2) X10*3/uL Eos # (Auto) (0.0-0.4) X10*3/uL Baso # (Auto) (0.0-0.2) X10*3/uL Abs Immat Gran (auto) (0.00-0.03) X10*3/uL Absolute Neuts (auto) (2.0-8.3) x10*3/uL Absolute Nucleated RBC (0.0-0.012) X10*3/uL Nucleated RBC % (auto) (0.0-0.2) /100WBC Smear Tech's Comments PT (9.9-13.0) SEC INR (0.9-1.1) D-Dimer High Sensitivty NG/ML VBG pH VBG pCO2 VBG pO2 VBG HCO3 VBG O2 Saturation VBG Base Excess Sodium (135-145) mmol/L Potassium (3.3-5.1) mmol/L Chloride (96-108) mmol/L Carbon Dioxide (22-29) mmol/L Anion Gap BUN (9-16) mg/dL Creatinine (0.5-1.4) mg/dL Estim Creat Clear Calc Estimated GFR POC Glucose 339 H 367 H* 355 H* (60-115) mg/dL Random Glucose (60-115) mg/dL Osmolality (281-305) mosm/kg Lactic Acid (0.5-2.0) mmol/L Lactic Acid F/U @ 2Hr (0.5-2.0) mmol/L Calcium (8.4-10.2) mg/dL Magnesium (1.6-2.6) mg/dL Total Bilirubin (0.0-1.0) mg/dL Direct Bilirubin (0.0-0.5) mg/dL AST (5-37) U/L ALT (0-40) U/L Alkaline Phosphatase (39-117) U/L Troponin I High Sens (<3.5-35.0) ng/L Total Protein (6.5-8.0) g/dL Albumin (3.5-5.0) g/dL Lipase (8-78) U/L Urine Color Urine Appearance Urine pH (5.0-8.0) Ur Specific [place] (1.005-1.025) Urine Protein (NEG-TRACE) MG/DL Urine Glucose (UA) (NEG) MG/DL Urine Ketones (NEG) MG/DL Urine Blood (NEG) Urine Nitrite (NEG) Ur Leukocyte Esterase (NEG) Urine RBC (0) /HPF Urine WBC (0-4) /HPF Ur Squamous Epith Cells /LPF Urine Bacteria /LPF Hyaline Casts /LPF Granular Casts /LPF Urine Mucus /LPF Urine Osmolality (373-1093) mosm/kg Urine Opiates Screen (Not Detect) Urine Fentanyl Screen (Not Detect) Ur Barbiturates Screen (Not Detect) Ur Phencyclidine Scrn (Not Detect) Ur Amphetamines Screen (Not Detect) U Benzodiazepines Scrn (Not Detect) Urine Cocaine Screen (Not Detect) U Marijuana (THC) Screen (Not Detect) Volat Analys Perform On Ethyl Alcohol mg/dL Methyl Alcohol Level Acetone, Qual (Negative) COVID-19 (ALLEN) (Negative) COVID-19 Clin Com 01/27/22 01/27/22 01/27/22 Range/Units 22:53 22:53 22:53 WBC (4.8-10.8) X10*3/uL RBC (4.60-5.80) X10*6/uL Hgb (14.0-18.0) g/dl Hct (42.0-52.0) % MCV (80.0-98.0) fL MCH (27.0-33.0) pg MCHC (31.0-36.0) g/dl RDW (11.0-16.0) % Plt Count (160-400) X10*3/uL MPV (9.4-12.4) fL Immature Gran % (Auto) (0.0-0.4) % Neut % (Auto) (45-73) % Lymph % (Auto) (20-40) % Cole % (Auto) (2-11) % Eos % (Auto) (0-4) % Baso % (Auto) (0-2) % Lymph # (Auto) (1.2-4.9) X10*3/uL Cole # (Auto) (0.1-1.2) X10*3/uL Eos # (Auto) (0.0-0.4) X10*3/uL Baso # (Auto) (0.0-0.2) X10*3/uL Abs Immat Gran (auto) (0.00-0.03) X10*3/uL Absolute Neuts (auto) (2.0-8.3) x10*3/uL Absolute Nucleated RBC (0.0-0.012) X10*3/uL Nucleated RBC % (auto) (0.0-0.2) /100WBC Smear Tech's Comments PT (9.9-13.0) SEC INR (0.9-1.1) D-Dimer High Sensitivty NG/ML VBG pH VBG pCO2 VBG pO2 VBG HCO3 VBG O2 Saturation VBG Base Excess Sodium (135-145) mmol/L Potassium (3.3-5.1) mmol/L Chloride (96-108) mmol/L Carbon Dioxide (22-29) mmol/L Anion Gap BUN (9-16) mg/dL Creatinine (0.5-1.4) mg/dL Estim Creat Clear Calc Estimated GFR POC Glucose (60-115) mg/dL Random Glucose (60-115) mg/dL Osmolality (281-305) mosm/kg Lactic Acid (0.5-2.0) mmol/L Lactic Acid F/U @ 2Hr 18.7 H* (0.5-2.0) mmol/L Calcium (8.4-10.2) mg/dL Magnesium (1.6-2.6) mg/dL Total Bilirubin (0.0-1.0) mg/dL Direct Bilirubin (0.0-0.5) mg/dL AST (5-37) U/L ALT (0-40) U/L Alkaline Phosphatase (39-117) U/L Troponin I High Sens < 3.5 (<3.5-35.0) ng/L Total Protein (6.5-8.0) g/dL Albumin (3.5-5.0) g/dL Lipase (8-78) U/L Urine Color Urine Appearance Urine pH (5.0-8.0) Ur Specific [place] (1.005-1.025) Urine Protein (NEG-TRACE) MG/DL Urine Glucose (UA) (NEG) MG/DL Urine Ketones (NEG) MG/DL Urine Blood (NEG) Urine Nitrite (NEG) Ur Leukocyte Esterase (NEG) Urine RBC (0) /HPF Urine WBC (0-4) /HPF Ur Squamous Epith Cells /LPF Urine Bacteria /LPF Hyaline Casts /LPF Granular Casts /LPF Urine Mucus /LPF Urine Osmolality (373-1093) mosm/kg Urine Opiates Screen (Not Detect) Urine Fentanyl Screen (Not Detect) Ur Barbiturates Screen (Not Detect) Ur Phencyclidine Scrn (Not Detect) Ur Amphetamines Screen (Not Detect) U Benzodiazepines Scrn (Not Detect) Urine Cocaine Screen (Not Detect) U Marijuana (THC) Screen (Not Detect) Volat Analys Perform On Cancelled Ethyl Alcohol mg/dL Methyl Alcohol Level Cancelled Acetone, Qual (Negative) COVID-19 (ALLEN) (Negative) COVID-19 Clin Com 01/27/22 01/27/22 01/27/22 Range/Units 23:03 23:06 23:06 WBC (4.8-10.8) X10*3/uL RBC (4.60-5.80) X10*6/uL Hgb (14.0-18.0) g/dl Hct (42.0-52.0) % MCV (80.0-98.0) fL MCH (27.0-33.0) pg MCHC (31.0-36.0) g/dl RDW (11.0-16.0) % Plt Count (160-400) X10*3/uL MPV (9.4-12.4) fL Immature Gran % (Auto) (0.0-0.4) % Neut % (Auto) (45-73) % Lymph % (Auto) (20-40) % Cole % (Auto) (2-11) % Eos % (Auto) (0-4) % Baso % (Auto) (0-2) % Lymph # (Auto) (1.2-4.9) X10*3/uL Cole # (Auto) (0.1-1.2) X10*3/uL Eos # (Auto) (0.0-0.4) X10*3/uL Baso # (Auto) (0.0-0.2) X10*3/uL Abs Immat Gran (auto) (0.00-0.03) X10*3/uL Absolute Neuts (auto) (2.0-8.3) x10*3/uL Absolute Nucleated RBC (0.0-0.012) X10*3/uL Nucleated RBC % (auto) (0.0-0.2) /100WBC Smear Tech's Comments PT (9.9-13.0) SEC INR (0.9-1.1) D-Dimer High Sensitivty NG/ML VBG pH VBG pCO2 VBG pO2 VBG HCO3 VBG O2 Saturation VBG Base Excess Sodium (135-145) mmol/L Potassium (3.3-5.1) mmol/L Chloride (96-108) mmol/L Carbon Dioxide (22-29) mmol/L Anion Gap BUN (9-16) mg/dL Creatinine (0.5-1.4) mg/dL Estim Creat Clear Calc Estimated GFR POC Glucose (60-115) mg/dL Random Glucose (60-115) mg/dL Osmolality (281-305) mosm/kg Lactic Acid (0.5-2.0) mmol/L Lactic Acid F/U @ 2Hr (0.5-2.0) mmol/L Calcium (8.4-10.2) mg/dL Magnesium (1.6-2.6) mg/dL Total Bilirubin (0.0-1.0) mg/dL Direct Bilirubin (0.0-0.5) mg/dL AST (5-37) U/L ALT (0-40) U/L Alkaline Phosphatase (39-117) U/L Troponin I High Sens (<3.5-35.0) ng/L Total Protein (6.5-8.0) g/dL Albumin (3.5-5.0) g/dL Lipase (8-78) U/L Urine Color YELLOW Urine Appearance CLEAR Urine pH 6.0 (5.0-8.0) Ur Specific [place] >= 1.030 H (1.005-1.025) Urine Protein 2+ H (NEG-TRACE) MG/DL Urine Glucose (UA) >=1000 H (NEG) MG/DL Urine Ketones 40 (NEG) MG/DL Urine Blood 3+ H (NEG) Urine Nitrite NEG (NEG) Ur Leukocyte Esterase NEG (NEG) Urine RBC 1-4 (0) /HPF Urine WBC 1-4 (0-4) /HPF Ur Squamous Epith Cells 1+ /LPF Urine Bacteria 2+ /LPF Hyaline Casts 1-4 /LPF Granular Casts 1-4 /LPF Urine Mucus 1+ /LPF Urine Osmolality 648 (373-1093) mosm/kg Urine Opiates Screen Not Detected (Not Detect) Urine Fentanyl Screen Not Detected (Not Detect) Ur Barbiturates Screen Not Detected (Not Detect) Ur Phencyclidine Scrn Not Detected (Not Detect) Ur Amphetamines Screen Not Detected (Not Detect) U Benzodiazepines Scrn Not Detected (Not Detect) Urine Cocaine Screen Not Detected (Not Detect) U Marijuana (THC) Screen Not Detected (Not Detect) Volat Analys Perform On Ethyl Alcohol mg/dL Methyl Alcohol Level Acetone, Qual (Negative) COVID-19 (ALLEN) (Negative) COVID-19 Clin Com 01/27/22 01/27/22 Range/Units 23:06 23:06 WBC (4.8-10.8) X10*3/uL RBC (4.60-5.80) X10*6/uL Hgb (14.0-18.0) g/dl Hct (42.0-52.0) % MCV (80.0-98.0) fL MCH (27.0-33.0) pg MCHC (31.0-36.0) g/dl RDW (11.0-16.0) % Plt Count (160-400) X10*3/uL MPV (9.4-12.4) fL Immature Gran % (Auto) (0.0-0.4) % Neut % (Auto) (45-73) % Lymph % (Auto) (20-40) % Cole % (Auto) (2-11) % Eos % (Auto) (0-4) % Baso % (Auto) (0-2) % Lymph # (Auto) (1.2-4.9) X10*3/uL Cole # (Auto) (0.1-1.2) X10*3/uL Eos # (Auto) (0.0-0.4) X10*3/uL Baso # (Auto) (0.0-0.2) X10*3/uL Abs Immat Gran (auto) (0.00-0.03) X10*3/uL Absolute Neuts (auto) (2.0-8.3) x10*3/uL Absolute Nucleated RBC (0.0-0.012) X10*3/uL Nucleated RBC % (auto) (0.0-0.2) /100WBC Smear Tech's Comments PT (9.9-13.0) SEC INR (0.9-1.1) D-Dimer High Sensitivty NG/ML VBG pH VBG pCO2 VBG pO2 VBG HCO3 VBG O2 Saturation VBG Base Excess Sodium (135-145) mmol/L Potassium (3.3-5.1) mmol/L Chloride (96-108) mmol/L Carbon Dioxide (22-29) mmol/L Anion Gap BUN (9-16) mg/dL Creatinine (0.5-1.4) mg/dL Estim Creat Clear Calc Estimated GFR POC Glucose 363 H* (60-115) mg/dL Random Glucose (60-115) mg/dL Osmolality 330 H (281-305) mosm/kg Lactic Acid (0.5-2.0) mmol/L Lactic Acid F/U @ 2Hr (0.5-2.0) mmol/L Calcium (8.4-10.2) mg/dL Magnesium (1.6-2.6) mg/dL Total Bilirubin (0.0-1.0) mg/dL Direct Bilirubin (0.0-0.5) mg/dL AST (5-37) U/L ALT (0-40) U/L Alkaline Phosphatase (39-117) U/L Troponin I High Sens (<3.5-35.0) ng/L Total Protein (6.5-8.0) g/dL Albumin (3.5-5.0) g/dL Lipase (8-78) U/L Urine Color Urine Appearance Urine pH (5.0-8.0) Ur Specific [place] (1.005-1.025) Urine Protein (NEG-TRACE) MG/DL Urine Glucose (UA) (NEG) MG/DL Urine Ketones (NEG) MG/DL Urine Blood (NEG) Urine Nitrite (NEG) Ur Leukocyte Esterase (NEG) Urine RBC (0) /HPF Urine WBC (0-4) /HPF Ur Squamous Epith Cells /LPF Urine Bacteria /LPF Hyaline Casts /LPF Granular Casts /LPF Urine Mucus /LPF Urine Osmolality (373-1093) mosm/kg Urine Opiates Screen (Not Detect) Urine Fentanyl Screen (Not Detect) Ur Barbiturates Screen (Not Detect) Ur Phencyclidine Scrn (Not Detect) Ur Amphetamines Screen (Not Detect) U Benzodiazepines Scrn (Not Detect) Urine Cocaine Screen (Not Detect) U Marijuana (THC) Screen (Not Detect) Volat Analys Perform On Ethyl Alcohol mg/dL Methyl Alcohol Level Acetone, Qual (Negative) COVID-19 (ALLEN) (Negative) COVID-19 Clin Com ECG Data ECG #1: Attestation: I personally reviewed and interpreted this ECG as follows: ECG interpretation date: 01/27/22 ECG interpretation time: 19:48 Interpretation: Rate: 126 Rhythm: sinus tachycardia [place]: normal LVH Normal P waves. Normal JILL. Normal QRS complex. ST T wave : peaked t waves in anterior leads but no LAURIE elevation qTC: normal prior studies: no acute ischemia The study has been interpreted contemporaneously by me. . Critical Care Time Critical Care Time Critical Care Time: Yes Total Critical Care Time: 90 Attestation: records reviewed, call to poison control, medical consult, admission to ICU, airway protection and angioedema care I attest to this time spent taking care of the patient Discharge Plan Discharge Clinical Impression: Alcoholic ketoacidosis, Acute dehydration, Acidosis, lactic DKA (diabetic ketoacidosis) Qualifiers: Diabetes mellitus type: type 1 Diabetes mellitus complication detail: without coma Qualified Code(s): E10.10 - Type 1 diabetes mellitus with ketoacidosis without coma Chest pain Qualifiers: Chest pain type: unspecified Qualified Code(s): R07.9 - Chest pain, unspecified Alcohol withdrawal Qualifiers: Complication of substance-induced condition: with unspecified complication Qualified Code(s): F10.239 - Alcohol dependence with withdrawal, unspecified Angioedema Qualifiers: Encounter type: initial encounter Qualified Code(s): T78.3XXA - Angioneurotic edema, initial encounter Patient Disposition: Admitted As Inpatient
[2022-01-27 19:44] LABS: Glucose, Whole Blood 356 mg/dL (60-115)
[2022-01-27] MEDS: LORazepam 2 MG/ML VIAL 1 MG IVPUSH (20:04)
[2022-01-27] MEDS: 0.9 % Sodium Chloride 1,000 ML 999 ML IVCONT ×2 (20:04→23:52)
[2022-01-27] MEDS: Sodium Bicarbonate 8.4% 50 MEQ/50 ML SYRINGE IVPUSH (20:04)
[2022-01-27] MEDS: ondansetron HCL 4 MG/2 ML VIAL IVPUSH (20:04)
[2022-01-27] MEDS: Albuterol Sulfate (0.083%) 2.5 MG/3 ML VIAL.NEB INHALE (20:05)
[2022-01-27 20:11] LABS: PLT CLUMP 1; SCAN SMEAR FLAG 1
[2022-01-27 20:13] LABS: Basophils Absolute Auto 0.1 X10*3/uL (0.0-0.2); Basophils Percent Auto 0.4 % (0-2); Eosinophils Percent Auto 0.2 % (0-4); Hematocrit 49.1 % (42.0-52.0); Hemoglobin 15.4 g/dl (14.0-18.0); Imm Gran Abs Auto 0.15 X10*3/uL (0.00-0.03); Imm Gran Pct Auto 1.3 % (0.0-0.4); Lymphocytes Absolute Auto 1.3 X10*3/uL (1.2-4.9); Lymphocytes Percent Auto 11.1 % (20-40); MANUAL DIFF FLAG SCAN; Mean Corpuscular HGB Conc 31.4 g/dl (31.0-36.0); Mean Corpuscular Hemoglobin 29.6 pg (27.0-33.0); Mean Corpuscular Volume 94.2 fL (80.0-98.0); Mean Platelet Volume 10.2 fL (9.4-12.4); Monocytes Absolute Auto 0.9 X10*3/uL (0.1-1.2); Monocytes Percent Auto 7.8 % (2-11); Neutrophils Absolute Auto 9.2 x10*3/uL (2.0-8.3); Neutrophils Percent Auto 79.2 % (45-73); Red Blood Count 5.21 X10*6/uL (4.60-5.80)
[2022-01-27 20:14] LABS: VBG Base Excess -28.1 mmol/L; VBG HCO3 3 mmol/L (22-26); VBG pCO2 17 mmHg; VBG pO2 172 mmHg
[2022-01-27 20:17] LABS: INTERNATIONAL NORM RATIO 1.1 (0.9-1.1); Prothrombin Time 12.3 SEC (9.9-13.0)
[2022-01-27 20:19] LABS: D Dimer High Sensitivity 263 NG/ML
[2022-01-27 20:28] LABS: IDNOW Serial# 16C4AD1C
[2022-01-27 20:29] LABS: COVID-19 Test Negative (Negative)
[2022-01-27 20:29] LABS: Platelet Count 125 X10*3/uL (160-400); White Blood Count 11.7 X10*3/uL (4.8-10.8)
[2022-01-27 20:30] LABS: SLIDE REVIEW VERIFIED
[2022-01-27 20:33] LABS: Troponin-I High Sensitivity < 3.5 ng/L (<3.5-35.0)
[2022-01-27] MEDS: Insulin Regular/NS 100 UNIT/100 ML PLAST..BAG IVCONT (20:38)
[2022-01-27 20:39] LABS: Ethanol 77 mg/dL
[2022-01-27 20:44] LABS: Glucose, Whole Blood 326 mg/dL (60-115)
[2022-01-27] MEDS: 0.9 % Sodium Chloride 1,000 ML 999 ML IV (20:44)
[2022-01-27 20:50] LABS: Acetone, serum QL Small (Negative)
[2022-01-27 21:03] LABS: Lactic Acid 19.6 mmol/L (0.5-2.0)
[2022-01-27 21:03] LABS: Alanine Aminotransferase 42 U/L (0-40); Albumin Level 4.9 g/dL (3.5-5.0); Alkaline Phosphatase 194 U/L (39-117); Aspartate Amino Transferase 83 U/L (5-37); Bilirubin Direct 0.2 mg/dL (0.0-0.5); Bilirubin Total 0.5 mg/dL (0.0-1.0); Blood Urea Nitrogen 10 mg/dL (9-16); Calcium 10.2 mg/dL (8.4-10.2); Carbon Dioxide < 5 mmol/L (22-29); Chloride 90 mmol/L (96-108); Creatinine Clr Calc Pharmacy 63.8; Estimated Glomerular Filt Rate 55; Glucose Random 356 mg/dL (60-115); Lipase 22 U/L (8-78); Magnesium 2.3 mg/dL (1.6-2.6); Potassium 4.7 mmol/L (3.3-5.1); Sodium 138 mmol/L (135-145); Total Protein 9.2 g/dL (6.5-8.0)
[2022-01-27 21:14] LABS: Glucose, Whole Blood 339 mg/dL (60-115)
[2022-01-27] MEDS: diphenhydrAMINE HCL 50 MG/ML VIAL IVPUSH (22:02)
[2022-01-27] MEDS: EPINEPHrine 1 MG/ML VIAL 0.3 MG IM (22:02)
[2022-01-27 22:03] LABS: Reflex Lactate? Lactic Acid Added
[2022-01-27] MEDS: methylPREDNISolone Sod Succ 125 MG/2 ML VIAL IVPUSH (22:03)
[2022-01-27] MEDS: Famotidine/PF 20 MG/2 ML VIAL IVPUSH (22:03)
[2022-01-27] MEDS: fentaNYL citrate/NS 1,000 MCG/100 ML PLAST..BAG 2.5 MCG IVCONT (22:16)
[2022-01-27 22:23] LABS: Glucose, Whole Blood 355 mg/dL (60-115)
[2022-01-27 22:23] LABS: Glucose, Whole Blood 367 mg/dL (60-115)
[2022-01-27 22:24] LABS: Osmolality, Serum 342 mosm/kg (281-305)
--- NOTE | 2022-01-27 22:29 | PC.NURSE ---
pt note secondary to pt care, pt repeatedly saying i cant breathe, I feel like my throat is closing MD notified and to bedside to evalute, respiratory contacted, per MD decision to intubate pt. pt intubated, size 6 tube, tied 22 at the teeth.
[2022-01-27] MEDS: Midazolam HCl/NS 50 MG/50 ML PLAST..BAG IVCONT (22:48)
[2022-01-27 23:14] LABS: Glucose, Whole Blood 363 mg/dL (60-115)
[2022-01-27 23:21] LABS: Appearance Urine CLEAR; Color Urine YELLOW; Glucose Urine UA >=1000 MG/DL (NEG); Leukocyte Esterase Urine NEG (NEG); Nitrite Urine NEG (NEG); Specific Gravity - Urine >= 1.030 (1.005-1.025); UACC Culture Trigger NO; Urine Blood 3+ (NEG); Urine Ketones 40 MG/DL (NEG); Urine Protein 2+ MG/DL (NEG-TRACE)
[2022-01-27 23:37] LABS: Amphetamine Screen Urine Not Detected (Not Detect); Barbiturates, Urine Not Detected (Not Detect); Benzodiazepines Screen Urine Not Detected (Not Detect); Cannabinoid Screen Urine Not Detected (Not Detect); Cocaine Screen Urine Not Detected (Not Detect); Fentanyl, urine Not Detected (Not Detect); Opiate Screen Urine Not Detected (Not Detect); Osmolality Urine 648 mosm/kg (373-1093); Osmolality, Serum 330 mosm/kg (281-305); Phencyclidine Screen Urine Not Detected (Not Detect)
[2022-01-27 23:38] LABS: Bacteria Urine 2+ /LPF; Mucus Urine 1+ /LPF; Squamous Epithelial Cell Urine 1+ /LPF
[2022-01-27 23:39] LABS: Troponin-I High Sensitivity < 3.5 ng/L (<3.5-35.0)
[2022-01-27 23:46] LABS: Glucose, Whole Blood 353 mg/dL (60-115)
--- NOTE | 2022-01-27 23:46 | PM.CCHP ---
History of Present Illness Date of Service: 01/27/22 Attending physician on admission: Eb Yañez Chief Complaint: DKA; possible Toxic Ingestion, Severe Met Acidosis HPI: 41-year-old intubated patient with prior history of bipolar disorder, diabetic nephropathy, diabetes, and pancreatitis, alcoholism among others, had presented to the emergency room complaints of substernal chest discomfort which started all of a sudden while watching TV, associated with nausea, vomiting, shortness of breath and sweatiness, he has not felt well altogether and he had reported his blood sugars have been in the 200 despite of his normal treatment.? It is reported that the patient was transported via EMS where he was noted to have peaked T-waves therefore he received calcium gluconate. ? Is known the patient's last alcoholic drink was last night and he was seen about a month ago in this hospital for alcohol intoxication.? In the ER workup reveal a white count of 11.7, H&H of 15.4 and 49.1, platelets 125, sodium 138, potassium 4.7, chloride 90, carbon dioxide less than 5, BUN 10, creatinine 1.41, blood sugar 356.? Lactic acid 19.9, troponin less than 3.5.? SAT 83, ALT 42.? Lipase 22.? Blood alcohol level 77 ?D-dimer 263, INR 1.1. ?Patient was given IV fluids x 2L, started on an insulin drip. Apparently he did develop an allergic reaction to Ativan, about an hour after administration, the patient had complained of difficulty swallowing for which epinephrine, Benadryl, Pepcid and Solu-Medrol , but ultimately the patient needed to be intubated for airway protection as he was reported that the patient's glottis was edematous. ? Given the significant level of acidosis which is not matching and mild DKA, workup for the possibility of toxic ingestion was suggested by Dr. Yañez, patient's current calculated osmolar gap is 21.8, patient is on Fomepizole, poison Control has been contacted, patient will be transferred to the ICU for further management.? CT of the neck soft tissue, abdomen pelvis and full toxicology screening, pending. ? Review systems: unobtainable as pt is intubated ? Past Medical History:? As above ? Past Surgical History:? None ? Family history: ?unobtainable and noncontributory per records ? Social History:?per records Lives home, never used cigarettes.? Drinks occasionally to 2 drinks per day but sometimes none, denies drug use. ? CODE STATUS: FULL CODE ? Allergies: ?Penicillins and meropenem (itching and ?swelling) ? Home Medications: See Med Rec ? PHYSICAL EXAM: VS: ?BP 129/76; HR 125; RR 30 : 100%?O2 sat on VENT with current settings AC, 18, 400, 5, 100% FiO2 General:? Sedated and intubated. Skin:?bilateral upper ext tattoos, otherwise Intact, no lesions, edema, erythema, clubbing or cyanosis.? No ulcers. HEENT:? Head is normocephalic, atraumatic, pupils equal round reactive to light accommodation bilaterally.? Extraocular movements appear intact.? Buccal mucosa is dry, Neck is supple without lymphadenopathy. R CVL. Cardiac:? Tachycardic with Clear S1-S2 128 beats per minute, no murmurs, rubs, gallops. Pulmonary:? Clear to auscultation, no wheezes, rales or rhonchi. Abdomen:? Protuberant, positive bowel sounds in all 4 quadrants.? Soft Musculoskeletal:? Passive range of motion for posttraumatic is at the major joints reveals no cogwheeling, there is no edema or asymmetry of the legs. Neurologic:? As above, no focal deficits noted. Vascular:? 2+ pulses upper and lower extremities distally. ? SIGNIFICANT LABORATORY DATA:? As above ? REVIEW OF IMAGES: ? To my view, trach is midline, there is no bony abnormalities, cardiac silhouette appears normal, will visualize costophrenic angles without evidence of pleural effusions, no infiltrates, no pulmonary vascular congestion noted.? Final reading pending by radiologist. ? EKG REVIEW: ?To my view the shows sinus tachycardia 126 beats per minute.? No ST elevations, no depressions.? There are peaked T-waves in the anterior lateral leads, ?QT is 312. ? ASSESSMENT AND PLAN: 1. Severe metabolic / Lactic acidosis r/o toxic ingestion such as Ethylene glycol, methanol, Isopropyl alcohol or something else as the degree of acidosis is too significant and not concordant with mild DKA process 2. DKA 3. Mild transaminitis likely due to alcohol ingestion 4. Tachycardia and tachypnea could be due to metabolic acidosis, DKA but also as a sign of alcohol withdrawal; there is no evidence of sepsis 5. Acute kidney injury likely due to volume depletion 6. Thrombocytopenia end of as 7. Reactive leukocytosis 8. Alcohol abuse 9. Dehydration and Hemoconcentration 10. High Osmolar Gap Acidosis Calculated at 21.8 on admission it can be simply due to Severe Lactic Acidosis / DKA, but will r/o EG, Methanol, ethanol tox, propylene glycol ingestion ? Patient will be admitted to the ICU, aggressive fluid resuscitation and monitoring of his I's and O's, will continue with insulin drip, recheck chemistry every 4 hours and POC every 1 hour.? Will give continuous LR and once a blood sugar reaches 250 or below we will switch him to D5 half-normal saline and will continue with insulin drip until the gap closes a which point we can place him back on long-acting insulin.? And believes the level of his acidosis to significant chromic to ignore it, given him bicarb may help although this will improve as the hyperglycemia and acidosis due to DKA is corrected. ? The possibility of a toxic ingestion was already discussed by Dr. Yañez and the ED physician, my calculated osmolar gap of 21.8 based on initial laboratories, the likelihood of the patient having ingested either ethylene glycol, methanol or isopropyl alcohol is always present, will administer Fomepizole (ADH Achohol Dehydrogenase Inhibitor) ?as well as sodium bicarbonate to correct the systemic acidosis limiting the penetration of toxic agents into the smallest and viral issues. It may that be his renal function worsens, despite it all. Will follow the osmolar gap and will repeat laboratories including VBG a couple hours from initiation of Fomepizole and this should continue until we have the final lab results of the EG test. Although unlikely; the increased plasma acetone and glycerol levels raise the osmolal gap, but in this case the acetone release is small, so still DKA does not justify the level of acidosis. ? Will continue with sedation, now on Propofol, Fentany and Versed will place him on Precedex if needed, Will place him on thiamine, folic acid and pyridoxine to optimize nontoxic metabolic pathway and hopefully increase the elimination of alcohol contents and its metabolites; Will add urine calcium oxalate studies and replete the potassium as needed as I suspect this will come down as we corrected blood sugars. ? GI PROPHYLAXIS:? IV ppi DVT PROPHYLAXIS:? Heparin b.i.d. subQ ? Critical care time used for critical evaluation of this patient, diagnosis, treatment and coordination of care, review her records and documentation TOTAL CRITICAL CARE TIME 120 MIN . Patient's care was discussed in detail with Dr. Yañez.? He is aware of all the above as well as the plan of care for this patient. ? 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 Mother Diabetes Surgical History Surgical History No pertinent past surgical history Social History Social History Alcohol intake: current Alcohol intake frequency: 0-2 drinks per day Patient Tobacco Use Status: Never used Tobacco Use of substances other than those prescribed or required for medical reasons: No Currently Displaying Signs/Symptoms of Drug Intoxication Withdrawal: No Advance Directives: No Meds Allergies Allergy/AdvReac Type Severity Reaction Status Date / Time meropenem [MEROPENEM] Allergy Unknown SWELLING Verified 01/28/22 07:18 penicillin G procaine Allergy Unknown itching Verified 10/25/21 11:00 Penicillins [PENICILLINS] Allergy Unknown SWELLING Verified 01/28/22 07:18 lorazepam [From Ativan] Allergy Anaphylaxis Verified 01/28/22 07:18 Active Medications: Current Medications Heparin Sodium (Porcine) (Heparin Sodium,Porcine 5,000 Unit/Ml Vial) 5,000 unit SUBCUT Q12H MAINOR Insulin Human Regular (Myxredlin) 100 unit in 100 mls @ 5 mls/hr IVCONT .Q20H MAINOR; Protocol Last Titration: 01/27/22 23:10 Dose: 11.25 unit/hr, 11.25 mls/hr Fentanyl (Sublimaze/Ns) 1,000 mcg in 100 mls @ 0 mls/hr IVCONT .Q0M MAINOR; Protocol Last Titration: 01/27/22 23:41 Dose: 100 mcg/hr, 10 mls/hr Midazolam HCl (Versed) 50 mg in 50 mls @ 2 mls/hr IVCONT .Q24H [facility] Last Admin: 01/27/22 22:48 Dose: 2 mg/hr, 2 mls/hr Naloxone HCl (Naloxone Hcl 0.4 Mg/Ml Vial) 0.2 mg IVPUSH Q2M PRN PRN Reason: Excessive sedation or RR < 8 Pantoprazole Sodium (Pantoprazole Sodium 40 Mg/10 Ml Vial) 40 mg IVPUSH DAILY [facility] Home Medications Medication Instructions Recorded Confirmed Last Taken Type clonidine HCl 0.2 mg tablet 0.2 mg PO BID 11/11/20 01/28/22 Unknown History quetiapine 400 mg tablet (Seroquel) 400 mg PO BEDTIME 11/11/20 01/28/22 Unknown History trazodone 100 mg tablet 200 mg PO BEDTIME 11/11/20 01/28/22 Unknown History clonazepam 1 mg tablet 1 tab PO BID PRN Anxiety 01/28/22 01/28/22 Unknown History insulin glargine 100 unit/mL (3 50 unit subcut BEDTIME 01/28/22 01/28/22 Unknown History mL) subcutaneous pen (Lantus Solostar U-100 Insulin) lamotrigine 200 mg tablet 1 tab PO BID 01/28/22 01/28/22 Unknown History metformin 1,000 mg tablet 1 tab PO BID 01/28/22 01/28/22 Unknown History Physical Exam Vital Signs: Vital Signs: Last Vital Signs Temp 97.5 F 01/27/22 19:36 Pulse 130 H 01/27/22 23:41 Resp 18 01/27/22 23:41 BP 110/66 01/27/22 23:41 Pulse Ox 100 01/27/22 23:41 O2 Del Method 01/27/22 22:30 O2 Flow Rate 10 01/27/22 21:46 Oxygen Flow Rate 2 01/27/22 19:29 BMI result Body Mass Index 26.8 Results Labs CBC and Chem 7: 01/28/22 05:25 01/28/22 21:28 Labs: Laboratory Results - last 24 hr 01/27/22 01/27/22 01/27/22 19:41 19:57 19:57 MCV MCH MCHC RDW Plt Count MPV Immature Gran % (Auto) Neut % (Auto) Lymph % (Auto) [place] % (Auto) Eos % (Auto) Baso % (Auto) Lymph # (Auto) [place] # (Auto) Eos # (Auto) Baso # (Auto) Abs Immat Gran (auto) Absolute Neuts (auto) Absolute Nucleated RBC Nucleated RBC % (auto) Smear Tech's Comments PT INR D-Dimer High Sensitivty VBG pH VBG pCO2 VBG pO2 VBG HCO3 VBG O2 Saturation VBG Base Excess Anion Gap Estim Creat Clear Calc Estimated GFR POC Glucose 356 H* Random Glucose Osmolality Lactic Acid 19.6 H* Calcium Magnesium Total Bilirubin Direct Bilirubin AST ALT Alkaline Phosphatase Troponin I High Sens < 3.5 Total Protein Albumin Lipase Urine Color Urine Appearance Urine pH Ur Specific Brusly Urine Protein Urine Glucose (UA) Urine Ketones Urine Blood Urine Nitrite Ur Leukocyte Esterase Urine RBC Urine WBC Ur Squamous Epith Cells Urine Bacteria Hyaline Casts Granular Casts Urine Mucus Urine Osmolality Urine Opiates Screen Urine Fentanyl Screen Ur Barbiturates Screen Ur Phencyclidine Scrn Ur Amphetamines Screen U Benzodiazepines Scrn Urine Cocaine Screen U Marijuana (THC) Screen Volat Analys Perform On Ethyl Alcohol Methyl Alcohol Level Acetone, Qual COVID-19 ([facility]) COVID-19 Clin Com 01/27/22 01/27/22 01/27/22 19:57 19:57 19:57 MCV MCH MCHC RDW Plt Count MPV Immature Gran % (Auto) Neut % (Auto) Lymph % (Auto) [place] % (Auto) Eos % (Auto) Baso % (Auto) Lymph # (Auto) [place] # (Auto) Eos # (Auto) Baso # (Auto) Abs Immat Gran (auto) Absolute Neuts (auto) Absolute Nucleated RBC Nucleated RBC % (auto) Smear Tech's Comments PT INR D-Dimer High Sensitivty VBG pH Cancelled VBG pCO2 Cancelled VBG pO2 Cancelled VBG HCO3 Cancelled VBG O2 Saturation Cancelled VBG Base Excess Cancelled Anion Gap Estim Creat Clear Calc Estimated GFR POC Glucose Random Glucose Osmolality Lactic Acid Calcium Magnesium Total Bilirubin Direct Bilirubin AST ALT Alkaline Phosphatase Troponin I High Sens Total Protein Albumin Lipase Urine Color Urine Appearance Urine pH Ur Specific Brusly Urine Protein Urine Glucose (UA) Urine Ketones Urine Blood Urine Nitrite Ur Leukocyte Esterase Urine RBC Urine WBC Ur Squamous Epith Cells Urine Bacteria Hyaline Casts Granular Casts Urine Mucus Urine Osmolality Urine Opiates Screen Urine Fentanyl Screen Ur Barbiturates Screen Ur Phencyclidine Scrn Ur Amphetamines Screen U Benzodiazepines Scrn Urine Cocaine Screen U Marijuana (THC) Screen Volat Analys Perform On Ethyl Alcohol 77 Methyl Alcohol Level Acetone, Qual COVID-19 (ALLEN) Negative COVID-19 Clin Com See Note 01/27/22 01/27/22 01/27/22 19:58 19:58 19:58 MCV 94.2 MCH 29.6 MCHC 31.4 RDW 16.0 Plt Count 125 L MPV 10.2 Immature Gran % (Auto) 1.3 H Neut % (Auto) 79.2 H Lymph % (Auto) 11.1 L [place] % (Auto) 7.8 Eos % (Auto) 0.2 Baso % (Auto) 0.4 Lymph # (Auto) 1.3 [place] # (Auto) 0.9 Eos # (Auto) 0.0 Baso # (Auto) 0.1 Abs Immat Gran (auto) 0.15 H Absolute Neuts (auto) 9.2 H Absolute Nucleated RBC 0.000 Nucleated RBC % (auto) 0.0 Smear Tech's Comments VERIFIED PT 12.3 INR 1.1 D-Dimer High Sensitivty 263 VBG pH VBG pCO2 VBG pO2 VBG HCO3 VBG O2 Saturation VBG Base Excess Anion Gap TNP Estim Creat Clear Calc 63.8 Estimated GFR 55 POC Glucose Random Glucose 356 H* Osmolality Lactic Acid Calcium 10.2 D Magnesium 2.3 Total Bilirubin 0.5 Direct Bilirubin 0.2 AST 83 H ALT 42 H Alkaline Phosphatase 194 H D Troponin I High Sens Total Protein 9.2 H D Albumin 4.9 Lipase 22 Urine Color Urine Appearance Urine pH Ur Specific Brusly Urine Protein Urine Glucose (UA) Urine Ketones Urine Blood Urine Nitrite Ur Leukocyte Esterase Urine RBC Urine WBC Ur Squamous Epith Cells Urine Bacteria Hyaline Casts Granular Casts Urine Mucus Urine Osmolality Urine Opiates Screen Urine Fentanyl Screen Ur Barbiturates Screen Ur Phencyclidine Scrn Ur Amphetamines Screen U Benzodiazepines Scrn Urine Cocaine Screen U Marijuana (THC) Screen Volat Analys Perform On Ethyl Alcohol Methyl Alcohol Level Acetone, Qual Small H COVID-19 (ALLEN) COVID-19 [employer] 01/27/22 01/27/22 01/27/22 19:58 20:04 20:25 MCV MCH MCHC RDW Plt Count MPV Immature Gran % (Auto) Neut % (Auto) Lymph % (Auto) [place] % (Auto) Eos % (Auto) Baso % (Auto) Lymph # (Auto) [place] # (Auto) Eos # (Auto) Baso # (Auto) Abs Immat Gran (auto) Absolute Neuts (auto) Absolute Nucleated RBC Nucleated RBC % (auto) Smear Tech's Comments PT INR D-Dimer High Sensitivty VBG pH 6.90 L* VBG pCO2 17 VBG pO2 172 VBG HCO3 3 L VBG O2 Saturation 98.0 VBG Base Excess -28.1 Anion Gap Estim Creat Clear Calc Estimated GFR POC Glucose 326 H Random Glucose Osmolality 342 H Lactic Acid Calcium Magnesium Total Bilirubin Direct Bilirubin AST ALT Alkaline Phosphatase Troponin I High Sens Total Protein Albumin Lipase Urine Color Urine Appearance Urine pH Ur Specific Brusly Urine Protein Urine Glucose (UA) Urine Ketones Urine Blood Urine Nitrite Ur Leukocyte Esterase Urine RBC Urine WBC Ur Squamous Epith Cells Urine Bacteria Hyaline Casts Granular Casts Urine Mucus Urine Osmolality Urine Opiates Screen Urine Fentanyl Screen Ur Barbiturates Screen Ur Phencyclidine Scrn Ur Amphetamines Screen U Benzodiazepines Scrn Urine Cocaine Screen U Marijuana (THC) Screen Volat Analys Perform On Ethyl Alcohol Methyl Alcohol Level Acetone, Qual COVID-19 (ALLEN) COVID-19 Clin Com 01/27/22 01/27/22 01/27/22 21:10 21:41 22:20 MCV MCH MCHC RDW Plt Count MPV Immature Gran % (Auto) Neut % (Auto) Lymph % (Auto) [place] % (Auto) Eos % (Auto) Baso % (Auto) Lymph # (Auto) [place] # (Auto) Eos # (Auto) Baso # (Auto) Abs Immat Gran (auto) Absolute Neuts (auto) Absolute Nucleated RBC Nucleated RBC % (auto) Smear Tech's Comments PT INR D-Dimer High Sensitivty VBG pH VBG pCO2 VBG pO2 VBG HCO3 VBG O2 Saturation VBG Base Excess Anion Gap Estim Creat Clear Calc Estimated GFR POC Glucose 339 H 367 H* 355 H* Random Glucose Osmolality Lactic Acid Calcium Magnesium Total Bilirubin Direct Bilirubin AST ALT Alkaline Phosphatase Troponin I High Sens Total Protein Albumin Lipase Urine Color Urine Appearance Urine pH Ur Specific Brusly Urine Protein Urine Glucose (UA) Urine Ketones Urine Blood Urine Nitrite Ur Leukocyte Esterase Urine RBC Urine WBC Ur Squamous Epith Cells Urine Bacteria Hyaline Casts Granular Casts Urine Mucus Urine Osmolality Urine Opiates Screen Urine Fentanyl Screen Ur Barbiturates Screen Ur Phencyclidine Scrn Ur Amphetamines Screen U Benzodiazepines Scrn Urine Cocaine Screen U Marijuana (THC) Screen Volat Analys Perform On Ethyl Alcohol Methyl Alcohol Level Acetone, Qual COVID-19 (ALLEN) COVID-19 [employer] Com 01/27/22 01/27/22 01/27/22 22:53 22:53 23:03 MCV MCH MCHC RDW Plt Count MPV Immature Gran % (Auto) Neut % (Auto) Lymph % (Auto) [place] % (Auto) Eos % (Auto) Baso % (Auto) Lymph # (Auto) [place] # (Auto) Eos # (Auto) Baso # (Auto) Abs Immat Gran (auto) Absolute Neuts (auto) Absolute Nucleated RBC Nucleated RBC % (auto) Smear Tech's Comments PT INR D-Dimer High Sensitivty VBG pH VBG pCO2 VBG pO2 VBG HCO3 VBG O2 Saturation VBG Base Excess Anion Gap Estim Creat Clear Calc Estimated GFR POC Glucose Random Glucose Osmolality Lactic Acid Calcium Magnesium Total Bilirubin Direct Bilirubin AST ALT Alkaline Phosphatase Troponin I High Sens < 3.5 Total Protein Albumin Lipase Urine Color YELLOW Urine Appearance CLEAR Urine pH 6.0 Ur Specific Brusly >= 1.030 H Urine Protein 2+ H Urine Glucose (UA) >=1000 H Urine Ketones 40 Urine Blood 3+ H Urine Nitrite NEG Ur Leukocyte Esterase NEG Urine RBC 1-4 Urine WBC 1-4 Ur Squamous Epith Cells 1+ Urine Bacteria 2+ Hyaline Casts 1-4 Granular Casts 1-4 Urine Mucus 1+ Urine Osmolality Urine Opiates Screen Urine Fentanyl Screen Ur Barbiturates Screen Ur Phencyclidine Scrn Ur Amphetamines Screen U Benzodiazepines Scrn Urine Cocaine Screen U Marijuana (THC) Screen Volat Analys Perform On Cancelled Ethyl Alcohol Methyl Alcohol Level Cancelled Acetone, Qual COVID-19 ([facility]EN) COVID-19 [employer] 01/27/22 01/27/22 01/27/22 23:06 23:06 23:06 MCV MCH MCHC RDW Plt Count MPV Immature Gran % (Auto) Neut % (Auto) Lymph % (Auto) [place] % (Auto) Eos % (Auto) Baso % (Auto) Lymph # (Auto) [place] # (Auto) Eos # (Auto) Baso # (Auto) Abs Immat Gran (auto) Absolute Neuts (auto) Absolute Nucleated RBC Nucleated RBC % (auto) Smear Tech's Comments PT INR D-Dimer High Sensitivty VBG pH VBG pCO2 VBG pO2 VBG HCO3 VBG O2 Saturation VBG Base Excess Anion Gap Estim Creat Clear Calc Estimated GFR POC Glucose Random Glucose Osmolality 330 H Lactic Acid Calcium Magnesium Total Bilirubin Direct Bilirubin AST ALT Alkaline Phosphatase Troponin I High Sens Total Protein Albumin Lipase Urine Color Urine Appearance Urine pH Ur Specific Brusly Urine Protein Urine Glucose (UA) Urine Ketones Urine Blood Urine Nitrite Ur Leukocyte Esterase Urine RBC Urine WBC Ur Squamous Epith Cells Urine Bacteria Hyaline Casts Granular Casts Urine Mucus Urine Osmolality 648 Urine Opiates Screen Not Detected Urine Fentanyl Screen Not Detected Ur Barbiturates Screen Not Detected Ur Phencyclidine Scrn Not Detected Ur Amphetamines Screen Not Detected U Benzodiazepines Scrn Not Detected Urine Cocaine Screen Not Detected U Marijuana (THC) Screen Not Detected Volat Analys Perform On Ethyl Alcohol Methyl Alcohol Level Acetone, Qual COVID-19 (ALLEN) COVID-19 [employer] 01/27/22 23:06 MCV MCH MCHC RDW Plt Count MPV Immature Gran % (Auto) Neut % (Auto) Lymph % (Auto) [place] % (Auto) Eos % (Auto) Baso % (Auto) Lymph # (Auto) [place] # (Auto) Eos # (Auto) Baso # (Auto) Abs Immat Gran (auto) Absolute Neuts (auto) Absolute Nucleated RBC Nucleated RBC % (auto) Smear Tech's Comments PT INR D-Dimer High Sensitivty VBG pH VBG pCO2 VBG pO2 VBG HCO3 VBG O2 Saturation VBG Base Excess Anion Gap Estim Creat Clear Calc Estimated GFR POC Glucose 363 H* Random Glucose Osmolality Lactic Acid Calcium Magnesium Total Bilirubin Direct Bilirubin AST ALT Alkaline Phosphatase Troponin I High Sens Total Protein Albumin Lipase Urine Color Urine Appearance Urine pH Ur Specific Brusly Urine Protein Urine Glucose (UA) Urine Ketones Urine Blood Urine Nitrite Ur Leukocyte Esterase Urine RBC Urine WBC Ur Squamous Epith Cells Urine Bacteria Hyaline Casts Granular Casts Urine Mucus Urine Osmolality Urine Opiates Screen Urine Fentanyl Screen Ur Barbiturates Screen Ur Phencyclidine Scrn Ur Amphetamines Screen U Benzodiazepines Scrn Urine Cocaine Screen U Marijuana (THC) Screen Volat Analys Perform On Ethyl Alcohol Methyl Alcohol Level Acetone, Qual COVID-19 ([facility]EN) COVID-19 [employer] Imaging Radiologist's Impressions: Impressions Chest X-Ray 01/27/22 20:55 IMPRESSION: Low lung volumes. No convincing evidence for an acute finding in the chest. Chest X-Ray 01/27/22 22:50 IMPRESSION: Support lines and tubes in good positions as described above. Increasing interstitial and groundglass opacities in the bilateral lung parenchyma likely representing underlying edema
[2022-01-27 23:49] LABS: ~Lactic Acid-LAB USE ONLY 18.7 mmol/L (0.5-2.0)
[2022-01-28] VITALS (38 sets, daily range): BP systolic 106–154; BP diastolic 55–95; PULSE 74–130; RESP 12–19; TEMP 33–37.2; O2SAT 90–100; BMI 28.4
[2022-01-28] MEDS: propofoL 1,000 MG/100 ML VIAL 2.33 MG IVCONT (00:14)
[2022-01-28 00:20] LABS: Venous Blood Gas Refer to POC result
--- NOTE | 2022-01-28 00:24 | PC.NURSE ---
pt MD oli at bedside, per MD popeay to start prop at 30mcg/kg instead of 5mcg/kg
[2022-01-28 00:56] LABS: ABG Base Excess -18.5 mmol/L; ABG HCO3 10 mmol/L (22-26); ABG pCO2 31 mmHg (32-45); ABG pH 7.09 (7.35-7.45); ABG pO2 70 mmHg (83-108)
[2022-01-28 00:57] LABS: Acetaminophen LAB < 1 mcg/mL (<30); Salicylate < 5.0 mg/dL (15-30)
[2022-01-28 01:08] LABS: ABG Refer to POC result
--- NOTE | 2022-01-28 01:08 | PC.NURSE ---
Pt note secondary to pt care, pt fully awake despite recieving max dose of sedatives per MAR & MD. pt shakes his head no when asked if he is in pain, pt initially tried to take out the ET tube but with education & verbal reassurance pt remains calm. MD aware of pt current RASS.
[2022-01-28 01:15] LABS: Glucose, Whole Blood 395 mg/dL (60-115)
[2022-01-28 01:15] LABS: Reflex Lactate? 2 Y
[2022-01-28 01:15] LABS: Glucose, Whole Blood 381 mg/dL (60-115)
[2022-01-28 01:29] LABS: Hematocrit 40.9 % (42.0-52.0); Hemoglobin 13.2 g/dl (14.0-18.0); Mean Corpuscular HGB Conc 32.3 g/dl (31.0-36.0); Mean Corpuscular Hemoglobin 29.5 pg (27.0-33.0); Mean Corpuscular Volume 91.5 fL (80.0-98.0); Mean Platelet Volume 9.8 fL (9.4-12.4); Platelet Count 104 X10*3/uL (160-400); Red Blood Count 4.47 X10*6/uL (4.60-5.80); Red Cell Distribution Width 15.9 % (11.0-16.0); White Blood Count 8.4 X10*3/uL (4.8-10.8)
[2022-01-28 01:38] LABS: Osmolality, Serum 330 mosm/kg (281-305)
[2022-01-28] MEDS: Metoprolol Tartrate 5 MG/5 ML VIAL IVPUSH ×2 (01:40→03:03)
[2022-01-28 01:50] LABS: ~Lactic Acid-LAB USE ONLY 13.9 mmol/L (0.5-2.0)
[2022-01-28 01:51] LABS: Anion Gap 33 (12-20); Blood Urea Nitrogen 12 mg/dL (9-16); Calcium 8.3 mg/dL (8.4-10.2); Carbon Dioxide 14 mmol/L (22-29); Chloride 96 mmol/L (96-108); Creatinine Clr Calc Pharmacy 45.9; Estimated Glomerular Filt Rate 38; Glucose Fasting 445 mg/dL (60-99); Potassium 4.2 mmol/L (3.3-5.1); Sodium 139 mmol/L (135-145)
[2022-01-28] MEDS: Sodium Bicarbonate 8.4% 50 MEQ/50 ML SYRINGE IVPUSH (01:54)
[2022-01-28] MEDS: Lactated Ringers 1,000 ML 200 ML IVCONT ×3 (01:57→10:11)
[2022-01-28] MEDS: Heparin Sodium,Porcine 5,000 UNIT/ML VIAL 5000 UNIT SUBCUT ×3 (02:09→23:20)
[2022-01-28] MEDS: Insulin Regular/NS 100 UNIT/100 ML PLAST..BAG 12 UNIT IVCONT (02:15)
[2022-01-28] MEDS: propofoL 1,000 MG/100 ML VIAL 23.28 MG IVCONT ×2 (02:17→06:09)
[2022-01-28 02:18] LABS: C Reactive Protein 0.45 mg/dL (< or = 0.50); Phosphorus 7.5 mg/dL (2.7-4.5); Uric Acid 10.3 mg/dL (3.4-7.0)
[2022-01-28] MEDS: Thiamine HCL 200 MG in 0.9 % Sodium Chloride 100 ML 204 MG IV (02:21)
[2022-01-28 02:38] LABS: Glucose, Whole Blood 457 mg/dL (60-115)
[2022-01-28 03:03] LABS: Ethanol < 10 mg/dL
[2022-01-28] MEDS: FOMEPIZOLE 1500 MG/1.5 ML 1164 MG IV (03:15)
[2022-01-28] MEDS: fentaNYL citrate/NS 1,000 MCG/100 ML PLAST..BAG 20 MCG IVCONT (03:22)
[2022-01-28] MEDS: Calcium Gluconate/NaCl,Iso-Osm 2 GM/100 ML PLAST..BAG IV (03:24)
--- NOTE | 2022-01-28 03:31 | PC.NURSE ---
Leave Insulin gtt at 12U/hr per SUSIE Nunez
[2022-01-28 03:59] LABS: Glucose, Whole Blood 422 mg/dL (60-115)
[2022-01-28 05:06] LABS: Glucose, Whole Blood 411 mg/dL (60-115)
[2022-01-28 05:17] LABS: Acetone 14 mg/dL (NONE DETECTED); Analysis Performed on: WHOLE BLOOD; Analysis performed on: WHOLE BLOOD; Ethyl Alcohol g/dL (%) NONE DETECTED g/dL(%) (NONE DETECTED); Ethyl Alcohol mg/dL NONE DETECTED (NONE DETECTED); Isopropanol NONE DETECTED (NONE DETECTED); Methyl Alcohol Level NONE DETECTED (NONE DETECTED)
[2022-01-28 05:21] LABS: Ethylene Glycol NONE DETECTED (NONE DETECTED)
[2022-01-28 05:31] LABS: VBG HCO3 23 mmol/L (22-26); VBG pCO2 53 mmHg; VBG pH 7.25 (7.32-7.43); VBG pO2 50 mmHg
[2022-01-28 05:32] LABS: Venous Blood Gas Refer to POC result
[2022-01-28 05:40] LABS: MANUAL DIFF FLAG NO
[2022-01-28 05:47] LABS: Basophils Percent Auto 0.2 % (0-2); Hematocrit 36.8 % (42.0-52.0); Hemoglobin 12.1 g/dl (14.0-18.0); Imm Gran Abs Auto 0.03 X10*3/uL (0.00-0.03); Imm Gran Pct Auto 0.5 % (0.0-0.4); Lymphocytes Absolute Auto 0.4 X10*3/uL (1.2-4.9); Lymphocytes Percent Auto 7.1 % (20-40); Mean Corpuscular HGB Conc 32.9 g/dl (31.0-36.0); Mean Corpuscular Hemoglobin 29.2 pg (27.0-33.0); Mean Corpuscular Volume 88.9 fL (80.0-98.0); Mean Platelet Volume 9.9 fL (9.4-12.4); Monocytes Absolute Auto 0.4 X10*3/uL (0.1-1.2); Monocytes Percent Auto 6.4 % (2-11); Neutrophils Absolute Auto 4.7 x10*3/uL (2.0-8.3); Neutrophils Percent Auto 85.8 % (45-73); Red Blood Count 4.14 X10*6/uL (4.60-5.80); Red Cell Distribution Width 15.7 % (11.0-16.0); White Blood Count 5.5 X10*3/uL (4.8-10.8)
[2022-01-28 05:57] LABS: Osmolality, Serum 320 mosm/kg (281-305)
[2022-01-28] MEDS: dexmedeTOMIDidine HCL/NS 400 MCG/100 ML INFUS..BTL 19.4 MCG IVCONT (06:03)
[2022-01-28 06:05] LABS: Glucose, Whole Blood 384 mg/dL (60-115)
[2022-01-28 06:08] LABS: Platelet Count 71 X10*3/uL (160-400)
[2022-01-28 06:09] LABS: Alanine Aminotransferase 32 U/L (0-40); Albumin Level 3.9 g/dL (3.5-5.0); Alkaline Phosphatase 146 U/L (39-117); Anion Gap 24 (12-20); Aspartate Amino Transferase 76 U/L (5-37); Blood Urea Nitrogen 13 mg/dL (9-16); Calcium 8.7 mg/dL (8.4-10.2); Carbon Dioxide 23 mmol/L (22-29); Chloride 96 mmol/L (96-108); Creatinine Clr Calc Pharmacy 43.2; Estimated Glomerular Filt Rate 35; Glucose Random 443 mg/dL (60-115); Lactic Acid 9.7 mmol/L (0.5-2.0); Potassium 4.2 mmol/L (3.3-5.1); Sodium 139 mmol/L (135-145); Total Protein 6.7 g/dL (6.5-8.0)
[2022-01-28 07:09] LABS: Glucose, Whole Blood 339 mg/dL (60-115)
[2022-01-28 07:36] LABS: Reflex Lactate? Lactic Acid Added
[2022-01-28] MEDS: Thiamine HCL 100 MG in 0.9 % Sodium Chloride 100 ML 202 MG IV (08:05)
[2022-01-28 08:08] LABS: Glucose, Whole Blood 355 mg/dL (60-115)
[2022-01-28] MEDS: Pantoprazole Sodium 40 MG/10 ML VIAL IVPUSH (08:10)
[2022-01-28 08:19] LABS: Magnesium 1.6 mg/dL (1.6-2.6); Phosphorus 3.4 mg/dL (2.7-4.5)
--- NOTE | 2022-01-28 08:19 | PHA.MEDREC ---
Pharmacy Consult ? Medication Reconciliation Pharmacy has completed the medication reconciliation. Pt intubated, med rec done based on recent claim history.
[2022-01-28 08:21] LABS: Cancel Lactic Acid Canceled
[2022-01-28 09:58] LABS: Glucose, Whole Blood 333 mg/dL (60-115)
[2022-01-28] MEDS: Folic Acid 1 MG in 0.9 % Sodium Chloride 50 ML 100.4 MG IV (10:10)
[2022-01-28] MEDS: propofoL 1,000 MG/100 ML VIAL 13.97 MG IVCONT (10:10)
[2022-01-28] MEDS: dexmedeTOMIDidine HCL/NS 400 MCG/100 ML INFUS..BTL 15.52 MCG IVCONT (10:16)
[2022-01-28] MEDS: Insulin Regular/NS 100 UNIT/100 ML PLAST..BAG 8 UNIT IVCONT (10:17)
[2022-01-28] MEDS: Pyridoxine HCl (Vitamin B6) 50 MG TABLET OG-TUBE (10:52)
[2022-01-28 11:31] LABS: Glucose, Whole Blood 277 mg/dL (60-115)
[2022-01-28 11:34] LABS: Anion Gap 16 (12-20); Blood Urea Nitrogen 14 mg/dL (9-16); Calcium 8.1 mg/dL (8.4-10.2); Carbon Dioxide 32 mmol/L (22-29); Chloride 97 mmol/L (96-108); Estimated Glomerular Filt Rate 35; Glucose Random 311 mg/dL (60-115); Magnesium 1.5 mg/dL (1.6-2.6); Potassium 3.7 mmol/L (3.3-5.1); Sodium 141 mmol/L (135-145)
[2022-01-28 12:13] LABS: Phosphorus 1.8 mg/dL (2.7-4.5)
[2022-01-28 12:20] LABS: Venous Blood Gas Refer to POC result
[2022-01-28 12:20] LABS: VBG Base Excess 7.8 mmol/L; VBG HCO3 34 mmol/L (22-26); VBG pCO2 53 mmHg; VBG pO2 51 mmHg
[2022-01-28] MEDS: Potassium Chloride Packet 20 MEQ PACKET 40 MEQ PO ×2 (13:08→14:27)
[2022-01-28] MEDS: Magnesium Sulfate/H2O 2 GM/50 ML PIGGYBACK IV ×2 (13:13→23:51)
[2022-01-28] MEDS: Potassium Phosphate/NS 15 MMOL/250 ML PLAST..BAG 62.5 MMOL IV ×2 (13:13→17:00)
[2022-01-28 13:40] LABS: Lactic Acid 2.6 mmol/L (0.5-2.0)
[2022-01-28 13:59] LABS: Cancel Lactic Acid Canceled
[2022-01-28 14:33] LABS: Glucose, Whole Blood 212 mg/dL (60-115)
--- NOTE | 2022-01-28 15:53 | PC.NURSE ---
Drips titrated and stopped per md verbal orders throughout the shift. Plan is to extubate pt if appropriate. RT at bedside adjusting vent settings. safety and fall precautions maintained. lytes replaced as ordered. per md lactic draw not to be done Q2, only when ordered by MD. Insulin drip maintained and poc maintained. per md insulin to be titrated per md verbal order, DKA protocol not to be followed.
[2022-01-28 15:58] LABS: Glucose, Whole Blood 187 mg/dL (60-115)
[2022-01-28 18:09] LABS: Glucose, Whole Blood 199 mg/dL (60-115)
--- NOTE | 2022-01-28 18:52 | P.PNCC_ITS ---
Subjective Subjective Date of Service: 01/28/22 Interval History: Mr. Pereyra was admitted to the ICU late last night with DKA, severe lactic acidosis, and acute respiratory failure. 41-year-old M w prior history of bipolar disorder, diabetic nephropathy, diabetes, and pancreatitis, alcoholism among others.? Questionable compliance with DM regimen. BIBA after sudden onset chest discomfort, associated with nausea, vomiting, shortness of breath and sweatiness. IN the ED, w/u notable for blood sugar 356, BUN/creatinine 10/1.4, potassium 4.7, bicarb less than 5, lactic acid 19.9, blood alcohol level 77. The patient was treated in the usual fashion for DKA.? Because of the extraordin km level of his lactic acidosis, a toxic ingestion was considered, and the patient was actually started on fomepizole.? Some kind of airway event happened in the ED and the patient wound up intubated.? According to Dr. Gamino, the patient's glottis was very swollen and she put in a 6.0 endotracheal tube.? The patient was then admitted to the ICU. In the ICU, the patient was treated for DKA in the usual fashion, with insulin and IV fluids.? Chemistries were followed closely.? His metabolic acidosis corrected slowly, his POCs and anion gap even slower.? Ultimately the volatiles toxin screen came back entirely negative. The patient underwent a CT of the neck soft tissues which was unrevealing.? I discussed the CT at length with 2 radiologists from [facility] it was apparent that his subglottic airway was entirely normal; but they were unable to make any helpful comments about the supraglottic area.? But the patient did have a cuff leak. Therefore this afternoon, the sedation was turned off and the patient was extubated without incident post extubation he is breathing easy with sat up to 98% on room air.? He is able to say ?E? without incident.? He feels tired but is able to answer all my questions with no difficulty. IMPRESSION: 1. DKA.? Continue mx in the usual fashion. 2. Lactic and metabolic acidosis, possibly exacerbated by alcohol and dehydration.? Mostly resolved. 3. Acute kidney injury, not resolving as fast as I would have expected with simple volume repletion.? We will continue IV fluids and continue following his BMP. 4. Chronic thrombocytopenia.? I am not sure what the cause is.? Could be related to his liver.? Abdominal CT showed diffuse hepatic steatosis. Otherwise usual supportive care. Critical care time:? 60+ minutes. Critical Care Time (minutes): 60 Physical Exam Vital Signs: Vital Signs: Last Vital Signs Temp 98.6 F 01/28/22 18:00 Pulse 86 01/28/22 18:00 Resp 19 01/28/22 18:00 BP 121/76 01/28/22 18:00 Pulse Ox 90 L 01/28/22 18:00 O2 Del Method 01/28/22 18:00 O2 Flow Rate 2 01/28/22 16:00 FiO2 30 01/28/22 15:00 Oxygen Flow Rate 2 01/27/22 19:29 BMI result Body Mass Index 28.4 Objective Data Labs CBC & Chem 7: 01/28/22 05:25 01/28/22 11:07 Labs: Laboratory Results - last 24 hr 01/27/22 01/27/22 01/27/22 19:41 19:57 19:57 WBC RBC Hgb Hct MCV MCH MCHC RDW Plt Count MPV Immature Gran % (Auto) Neut % (Auto) Lymph % (Auto) [place] % (Auto) Eos % (Auto) Baso % (Auto) Lymph # (Auto) [place] # (Auto) Eos # (Auto) Baso # (Auto) Abs Immat Gran (auto) Absolute Neuts (auto) Absolute Nucleated RBC Nucleated RBC % (auto) Smear Tech's Comments PT INR D-Dimer High Sensitivty O2 Saturation ABG pH at Pt Temp ABG pCO2 at Pt Temp ABG pO2 at Pt Temp ABG HCO3 ABG Base Excess (Actual) VBG pH VBG pCO2 VBG pO2 VBG HCO3 VBG O2 Saturation VBG Base Excess Sodium Potassium Chloride Carbon Dioxide Anion Gap BUN Creatinine Estim Creat Clear Calc Estimated GFR POC Glucose 356 H* Random Glucose Fasting Glucose Osmolality Lactic Acid 19.6 H* Lactic Acid F/U @ 2Hr Lactic Acid F/U @ 4Hr Uric Acid Calcium Phosphorus Magnesium Total Bilirubin Direct Bilirubin AST ALT Alkaline Phosphatase Troponin I High Sens < 3.5 C-Reactive Protein Total Protein Albumin Lipase Urine Color Urine Appearance Urine pH Ur Specific [place] Urine Protein Urine Glucose (UA) Urine Ketones Urine Blood Urine Nitrite Ur Leukocyte Esterase Urine RBC Urine WBC Ur Squamous Epith Cells Urine Bacteria Hyaline Casts Granular Casts Urine Mucus Urine Osmolality Ur Random Sodium Salicylates Urine Opiates Screen Urine Fentanyl Screen Acetaminophen Ur Barbiturates Screen Ur Phencyclidine Scrn Ur Amphetamines Screen U Benzodiazepines Scrn Urine Cocaine Screen U Marijuana (THC) Screen Ethylene Glycol Volat Analys Perform On Ethyl Alcohol Ethyl Alcohol mg/dL Ethyl Alcohol g/dL Methyl Alcohol Level Isopropyl Alc, Quant Acetone, Qual Acetone Level COVID-19 (ALLEN) COVID-19 Clin Com 01/27/22 01/27/22 01/27/22 19:57 19:57 19:57 WBC RBC Hgb Hct MCV MCH MCHC RDW Plt Count MPV Immature Gran % (Auto) Neut % (Auto) Lymph % (Auto) [place] % (Auto) Eos % (Auto) Baso % (Auto) Lymph # (Auto) [place] # (Auto) Eos # (Auto) Baso # (Auto) Abs Immat Gran (auto) Absolute Neuts (auto) Absolute Nucleated RBC Nucleated RBC % (auto) Smear Tech's Comments PT INR D-Dimer High Sensitivty O2 Saturation ABG pH at Pt Temp ABG pCO2 at Pt Temp ABG pO2 at Pt Temp ABG HCO3 ABG Base Excess (Actual) VBG pH Cancelled VBG pCO2 Cancelled VBG pO2 Cancelled VBG HCO3 Cancelled VBG O2 Saturation Cancelled VBG Base Excess Cancelled Sodium Potassium Chloride Carbon Dioxide Anion Gap BUN Creatinine Estim Creat Clear Calc Estimated GFR POC Glucose Random Glucose Fasting Glucose Osmolality Lactic Acid Lactic Acid F/U @ 2Hr Lactic Acid F/U @ 4Hr Uric Acid Calcium Phosphorus Magnesium Total Bilirubin Direct Bilirubin AST ALT Alkaline Phosphatase Troponin I High Sens C-Reactive Protein Total Protein Albumin Lipase Urine Color Urine Appearance Urine pH Ur Specific [place] Urine Protein Urine Glucose (UA) Urine Ketones Urine Blood Urine Nitrite Ur Leukocyte Esterase Urine RBC Urine WBC Ur Squamous Epith Cells Urine Bacteria Hyaline Casts Granular Casts Urine Mucus Urine Osmolality Ur Random Sodium Salicylates Urine Opiates Screen Urine Fentanyl Screen Acetaminophen Ur Barbiturates Screen Ur Phencyclidine Scrn Ur Amphetamines Screen U Benzodiazepines Scrn Urine Cocaine Screen U Marijuana (THC) Screen Ethylene Glycol Volat Analys Perform On Ethyl Alcohol 77 Ethyl Alcohol mg/dL Ethyl Alcohol g/dL Methyl Alcohol Level Isopropyl Alc, Quant Acetone, Qual Acetone Level COVID-19 (ALLEN) Negative COVID-19 Clin Com See Note 01/27/22 01/27/22 01/27/22 19:58 19:58 19:58 WBC 11.7 H RBC 5.21 Hgb 15.4 Hct 49.1 MCV 94.2 MCH 29.6 MCHC 31.4 RDW 16.0 Plt Count 125 L MPV 10.2 Immature Gran % (Auto) 1.3 H Neut % (Auto) 79.2 H Lymph % (Auto) 11.1 L [place] % (Auto) 7.8 Eos % (Auto) 0.2 Baso % (Auto) 0.4 Lymph # (Auto) 1.3 [place] # (Auto) 0.9 Eos # (Auto) 0.0 Baso # (Auto) 0.1 Abs Immat Gran (auto) 0.15 H Absolute Neuts (auto) 9.2 H Absolute Nucleated RBC 0.000 Nucleated RBC % (auto) 0.0 Smear Tech's Comments VERIFIED PT 12.3 INR 1.1 D-Dimer High Sensitivty 263 O2 Saturation ABG pH at Pt Temp ABG pCO2 at Pt Temp ABG pO2 at Pt Temp ABG HCO3 ABG Base Excess (Actual) VBG pH VBG pCO2 VBG pO2 VBG HCO3 VBG O2 Saturation VBG Base Excess Sodium 138 Potassium 4.7 Chloride 90 L Carbon Dioxide < 5 L* D Anion Gap TNP BUN 10 Creatinine 1.41 H Estim Creat Clear Calc 63.8 Estimated GFR 55 POC Glucose Random Glucose 356 H* Fasting Glucose Osmolality Lactic Acid Lactic Acid F/U @ 2Hr Lactic Acid F/U @ 4Hr Uric Acid Calcium 10.2 D Phosphorus Magnesium 2.3 Total Bilirubin 0.5 Direct Bilirubin 0.2 AST 83 H ALT 42 H Alkaline Phosphatase 194 H D Troponin I High Sens C-Reactive Protein Total Protein 9.2 H D Albumin 4.9 Lipase 22 Urine Color Urine Appearance Urine pH Ur Specific [place] Urine Protein Urine Glucose (UA) Urine Ketones Urine Blood Urine Nitrite Ur Leukocyte Esterase Urine RBC Urine WBC Ur Squamous Epith Cells Urine Bacteria Hyaline Casts Granular Casts Urine Mucus Urine Osmolality Ur Random Sodium Salicylates Urine Opiates Screen Urine Fentanyl Screen Acetaminophen Ur Barbiturates Screen Ur Phencyclidine Scrn Ur Amphetamines Screen U Benzodiazepines Scrn Urine Cocaine Screen U Marijuana (THC) Screen Ethylene Glycol Volat Analys Perform On Ethyl Alcohol Ethyl Alcohol mg/dL Ethyl Alcohol g/dL Methyl Alcohol Level Isopropyl Alc, Quant Acetone, Qual Small H Acetone Level COVID-19 (ALLEN) COVID-19 [place] 01/27/22 01/27/22 01/27/22 19:58 20:04 20:25 WBC RBC Hgb Hct MCV MCH MCHC RDW Plt Count MPV Immature Gran % (Auto) Neut % (Auto) Lymph % (Auto) [place] % (Auto) Eos % (Auto) Baso % (Auto) Lymph # (Auto) [place] # (Auto) Eos # (Auto) Baso # (Auto) Abs Immat Gran (auto) Absolute Neuts (auto) Absolute Nucleated RBC Nucleated RBC % (auto) Smear Tech's Comments PT INR D-Dimer High Sensitivty O2 Saturation ABG pH at Pt Temp ABG pCO2 at Pt Temp ABG pO2 at Pt Temp ABG HCO3 ABG Base Excess (Actual) VBG pH 6.90 L* VBG pCO2 17 VBG pO2 172 VBG HCO3 3 L VBG O2 Saturation 98.0 VBG Base Excess -28.1 Sodium Potassium Chloride Carbon Dioxide Anion Gap BUN Creatinine Estim Creat Clear Calc Estimated GFR POC Glucose 326 H Random Glucose Fasting Glucose Osmolality 342 H Lactic Acid Lactic Acid F/U @ 2Hr Lactic Acid F/U @ 4Hr Uric Acid Calcium Phosphorus Magnesium Total Bilirubin Direct Bilirubin AST ALT Alkaline Phosphatase Troponin I High Sens C-Reactive Protein Total Protein Albumin Lipase Urine Color Urine Appearance Urine pH Ur Specific [place] Urine Protein Urine Glucose (UA) Urine Ketones Urine Blood Urine Nitrite Ur Leukocyte Esterase Urine RBC Urine WBC Ur Squamous Epith Cells Urine Bacteria Hyaline Casts Granular Casts Urine Mucus Urine Osmolality Ur Random Sodium Salicylates Urine Opiates Screen Urine Fentanyl Screen Acetaminophen Ur Barbiturates Screen Ur Phencyclidine Scrn Ur Amphetamines Screen U Benzodiazepines Scrn Urine Cocaine Screen U Marijuana (THC) Screen Ethylene Glycol Volat Analys Perform On Ethyl Alcohol Ethyl Alcohol mg/dL Ethyl Alcohol g/dL Methyl Alcohol Level Isopropyl Alc, Quant Acetone, Qual Acetone Level COVID-19 (ALLEN) COVID-19 [place] 01/27/22 01/27/22 01/27/22 21:10 21:41 22:20 WBC RBC Hgb Hct MCV MCH MCHC RDW Plt Count MPV Immature Gran % (Auto) Neut % (Auto) Lymph % (Auto) [place] % (Auto) Eos % (Auto) Baso % (Auto) Lymph # (Auto) [place] # (Auto) Eos # (Auto) Baso # (Auto) Abs Immat Gran (auto) Absolute Neuts (auto) Absolute Nucleated RBC Nucleated RBC % (auto) Smear Tech's Comments PT INR D-Dimer High Sensitivty O2 Saturation ABG pH at Pt Temp ABG pCO2 at Pt Temp ABG pO2 at Pt Temp ABG HCO3 ABG Base Excess (Actual) VBG pH VBG pCO2 VBG pO2 VBG HCO3 VBG O2 Saturation VBG Base Excess Sodium Potassium Chloride Carbon Dioxide Anion Gap BUN Creatinine Estim Creat Clear Calc Estimated GFR POC Glucose 339 H 367 H* 355 H* Random Glucose Fasting Glucose Osmolality Lactic Acid Lactic Acid F/U @ 2Hr Lactic Acid F/U @ 4Hr Uric Acid Calcium Phosphorus Magnesium Total Bilirubin Direct Bilirubin AST ALT Alkaline Phosphatase Troponin I High Sens C-Reactive Protein Total Protein Albumin Lipase Urine Color Urine Appearance Urine pH Ur Specific [place] Urine Protein Urine Glucose (UA) Urine Ketones Urine Blood Urine Nitrite Ur Leukocyte Esterase Urine RBC Urine WBC Ur Squamous Epith Cells Urine Bacteria Hyaline Casts Granular Casts Urine Mucus Urine Osmolality Ur Random Sodium Salicylates Urine Opiates Screen Urine Fentanyl Screen Acetaminophen Ur Barbiturates Screen Ur Phencyclidine Scrn Ur Amphetamines Screen U Benzodiazepines Scrn Urine Cocaine Screen U Marijuana (THC) Screen Ethylene Glycol Volat Analys Perform On Ethyl Alcohol Ethyl Alcohol mg/dL Ethyl Alcohol g/dL Methyl Alcohol Level Isopropyl Alc, Quant Acetone, Qual Acetone Level COVID-19 (ALLEN) COVID-19 Clin Com 01/27/22 01/27/22 01/27/22 22:53 22:53 22:53 WBC RBC Hgb Hct MCV MCH MCHC RDW Plt Count MPV Immature Gran % (Auto) Neut % (Auto) Lymph % (Auto) [place] % (Auto) Eos % (Auto) Baso % (Auto) Lymph # (Auto) [place] # (Auto) Eos # (Auto) Baso # (Auto) Abs Immat Gran (auto) Absolute Neuts (auto) Absolute Nucleated RBC Nucleated RBC % (auto) Smear Tech's Comments PT INR D-Dimer High Sensitivty O2 Saturation ABG pH at Pt Temp ABG pCO2 at Pt Temp ABG pO2 at Pt Temp ABG HCO3 ABG Base Excess (Actual) VBG pH VBG pCO2 VBG pO2 VBG HCO3 VBG O2 Saturation VBG Base Excess Sodium Potassium Chloride Carbon Dioxide Anion Gap BUN Creatinine Estim Creat Clear Calc Estimated GFR POC Glucose Random Glucose Fasting Glucose Osmolality Lactic Acid Lactic Acid F/U @ 2Hr 18.7 H* Lactic Acid F/U @ 4Hr Uric Acid Calcium Phosphorus Magnesium Total Bilirubin Direct Bilirubin AST ALT Alkaline Phosphatase Troponin I High Sens < 3.5 C-Reactive Protein Total Protein Albumin Lipase Urine Color Urine Appearance Urine pH Ur Specific [place] Urine Protein Urine Glucose (UA) Urine Ketones Urine Blood Urine Nitrite Ur Leukocyte Esterase Urine RBC Urine WBC Ur Squamous Epith Cells Urine Bacteria Hyaline Casts Granular Casts Urine Mucus Urine Osmolality Ur Random Sodium Salicylates Urine Opiates Screen Urine Fentanyl Screen Acetaminophen Ur Barbiturates Screen Ur Phencyclidine Scrn Ur Amphetamines Screen U Benzodiazepines Scrn Urine Cocaine Screen U Marijuana (THC) Screen Ethylene Glycol NONE DETECTED Volat Analys Perform On WHOLE BLOOD Ethyl Alcohol Ethyl Alcohol mg/dL Ethyl Alcohol g/dL Methyl Alcohol Level NONE DETECTED Isopropyl Alc, Quant Acetone, Qual Acetone Level COVID-19 (ALLEN) COVID-19 Clin Com 01/27/22 01/27/22 01/27/22 22:53 22:53 22:53 WBC RBC Hgb Hct MCV MCH MCHC RDW Plt Count MPV Immature Gran % (Auto) Neut % (Auto) Lymph % (Auto) [place] % (Auto) Eos % (Auto) Baso % (Auto) Lymph # (Auto) [place] # (Auto) Eos # (Auto) Baso # (Auto) Abs Immat Gran (auto) Absolute Neuts (auto) Absolute Nucleated RBC Nucleated RBC % (auto) Smear Tech's Comments PT INR D-Dimer High Sensitivty O2 Saturation ABG pH at Pt Temp ABG pCO2 at Pt Temp ABG pO2 at Pt Temp ABG HCO3 ABG Base Excess (Actual) VBG pH VBG pCO2 VBG pO2 VBG HCO3 VBG O2 Saturation VBG Base Excess Sodium Potassium Chloride Carbon Dioxide Anion Gap BUN Creatinine Estim Creat Clear Calc Estimated GFR POC Glucose Random Glucose Fasting Glucose Osmolality Lactic Acid Lactic Acid F/U @ 2Hr Lactic Acid F/U @ 4Hr Uric Acid Calcium Phosphorus Magnesium Total Bilirubin Direct Bilirubin AST ALT Alkaline Phosphatase Troponin I High Sens C-Reactive Protein Total Protein Albumin Lipase Urine Color Urine Appearance Urine pH Ur Specific [place] Urine Protein Urine Glucose (UA) Urine Ketones Urine Blood Urine Nitrite Ur Leukocyte Esterase Urine RBC Urine WBC Ur Squamous Epith Cells Urine Bacteria Hyaline Casts Granular Casts Urine Mucus Urine Osmolality Ur Random Sodium Salicylates < 5.0 L Urine Opiates Screen Urine Fentanyl Screen Acetaminophen < 1 Ur Barbiturates Screen Ur Phencyclidine Scrn Ur Amphetamines Screen U Benzodiazepines Scrn Urine Cocaine Screen U Marijuana (THC) Screen Ethylene Glycol Volat Analys Perform On WHOLE BLOOD Cancelled Ethyl Alcohol Ethyl Alcohol mg/dL NONE DETECTED Ethyl Alcohol g/dL NONE DETECTED Methyl Alcohol Level Not Reportable Cancelled Isopropyl Alc, Quant NONE DETECTED Acetone, Qual Acetone Level 14 H COVID-19 (ALLEN) COVID-19 Clin Com 01/27/22 01/27/22 01/27/22 23:03 23:06 23:06 WBC RBC Hgb Hct MCV MCH MCHC RDW Plt Count MPV Immature Gran % (Auto) Neut % (Auto) Lymph % (Auto) [place] % (Auto) Eos % (Auto) Baso % (Auto) Lymph # (Auto) [place] # (Auto) Eos # (Auto) Baso # (Auto) Abs Immat Gran (auto) Absolute Neuts (auto) Absolute Nucleated RBC Nucleated RBC % (auto) Smear Tech's Comments PT INR D-Dimer High Sensitivty O2 Saturation ABG pH at Pt Temp ABG pCO2 at Pt Temp ABG pO2 at Pt Temp ABG HCO3 ABG Base Excess (Actual) VBG pH VBG pCO2 VBG pO2 VBG HCO3 VBG O2 Saturation VBG Base Excess Sodium Potassium Chloride Carbon Dioxide Anion Gap BUN Creatinine Estim Creat Clear Calc Estimated GFR POC Glucose Random Glucose Fasting Glucose Osmolality Lactic Acid Lactic Acid F/U @ 2Hr Lactic Acid F/U @ 4Hr Uric Acid Calcium Phosphorus Magnesium Total Bilirubin Direct Bilirubin AST ALT Alkaline Phosphatase Troponin I High Sens C-Reactive Protein Total Protein Albumin Lipase Urine Color YELLOW Urine Appearance CLEAR Urine pH 6.0 Ur Specific [place] >= 1.030 H Urine Protein 2+ H Urine Glucose (UA) >=1000 H Urine Ketones 40 Urine Blood 3+ H Urine Nitrite NEG Ur Leukocyte Esterase NEG Urine RBC 1-4 Urine WBC 1-4 Ur Squamous Epith Cells 1+ Urine Bacteria 2+ Hyaline Casts 1-4 Granular Casts 1-4 Urine Mucus 1+ Urine Osmolality 648 Ur Random Sodium Salicylates Urine Opiates Screen Not Detected Urine Fentanyl Screen Not Detected Acetaminophen Ur Barbiturates Screen Not Detected Ur Phencyclidine Scrn Not Detected Ur Amphetamines Screen Not Detected U Benzodiazepines Scrn Not Detected Urine Cocaine Screen Not Detected U Marijuana (THC) Screen Not Detected Ethylene Glycol Volat Analys Perform On Ethyl Alcohol Ethyl Alcohol mg/dL Ethyl Alcohol g/dL Methyl Alcohol Level Isopropyl Alc, Quant Acetone, Qual Acetone Level COVID-19 (ALLEN) COVID-19 [place] 01/27/22 01/27/22 01/27/22 23:06 23:06 23:41 WBC RBC Hgb Hct MCV MCH MCHC RDW Plt Count MPV Immature Gran % (Auto) Neut % (Auto) Lymph % (Auto) [place] % (Auto) Eos % (Auto) Baso % (Auto) Lymph # (Auto) [place] # (Auto) Eos # (Auto) Baso # (Auto) Abs Immat Gran (auto) Absolute Neuts (auto) Absolute Nucleated RBC Nucleated RBC % (auto) Smear Tech's Comments PT INR D-Dimer High Sensitivty O2 Saturation ABG pH at Pt Temp ABG pCO2 at Pt Temp ABG pO2 at Pt Temp ABG HCO3 ABG Base Excess (Actual) VBG pH VBG pCO2 VBG pO2 VBG HCO3 VBG O2 Saturation VBG Base Excess Sodium Potassium Chloride Carbon Dioxide Anion Gap BUN Creatinine Estim Creat Clear Calc Estimated GFR POC Glucose 363 H* 353 H* Random Glucose Fasting Glucose Osmolality 330 H Lactic Acid Lactic Acid F/U @ 2Hr Lactic Acid F/U @ 4Hr Uric Acid Calcium Phosphorus Magnesium Total Bilirubin Direct Bilirubin AST ALT Alkaline Phosphatase Troponin I High Sens C-Reactive Protein Total Protein Albumin Lipase Urine Color Urine Appearance Urine pH Ur Specific [place] Urine Protein Urine Glucose (UA) Urine Ketones Urine Blood Urine Nitrite Ur Leukocyte Esterase Urine RBC Urine WBC Ur Squamous Epith Cells Urine Bacteria Hyaline Casts Granular Casts Urine Mucus Urine Osmolality Ur Random Sodium Salicylates Urine Opiates Screen Urine Fentanyl Screen Acetaminophen Ur Barbiturates Screen Ur Phencyclidine Scrn Ur Amphetamines Screen U Benzodiazepines Scrn Urine Cocaine Screen U Marijuana (THC) Screen Ethylene Glycol Volat Analys Perform On Ethyl Alcohol Ethyl Alcohol mg/dL Ethyl Alcohol g/dL Methyl Alcohol Level Isopropyl Alc, Quant Acetone, Qual Acetone Level COVID-19 (ALLEN) COVID-19 [place] 01/28/22 01/28/22 01/28/22 00:37 00:50 01:11 WBC RBC Hgb Hct MCV MCH MCHC RDW Plt Count MPV Immature Gran % (Auto) Neut % (Auto) Lymph % (Auto) [place] % (Auto) Eos % (Auto) Baso % (Auto) Lymph # (Auto) [place] # (Auto) Eos # (Auto) Baso # (Auto) Abs Immat Gran (auto) Absolute Neuts (auto) Absolute Nucleated RBC Nucleated RBC % (auto) Smear Tech's Comments PT INR D-Dimer High Sensitivty O2 Saturation 92.0 ABG pH at Pt Temp 7.09 L* ABG pCO2 at Pt Temp 31 L ABG pO2 at Pt Temp 70 L ABG HCO3 10 L ABG Base Excess (Actual) -18.5 VBG pH VBG pCO2 VBG pO2 VBG HCO3 VBG O2 Saturation VBG Base Excess Sodium Potassium Chloride Carbon Dioxide Anion Gap BUN Creatinine Estim Creat Clear Calc Estimated GFR POC Glucose 395 H* 381 H* Random Glucose Fasting Glucose Osmolality Lactic Acid Lactic Acid F/U @ 2Hr Lactic Acid F/U @ 4Hr Uric Acid Calcium Phosphorus Magnesium Total Bilirubin Direct Bilirubin AST ALT Alkaline Phosphatase Troponin I High Sens C-Reactive Protein Total Protein Albumin Lipase Urine Color Urine Appearance Urine pH Ur Specific [place] Urine Protein Urine Glucose (UA) Urine Ketones Urine Blood Urine Nitrite Ur Leukocyte Esterase Urine RBC Urine WBC Ur Squamous Epith Cells Urine Bacteria Hyaline Casts Granular Casts Urine Mucus Urine Osmolality Ur Random Sodium Salicylates Urine Opiates Screen Urine Fentanyl Screen Acetaminophen Ur Barbiturates Screen Ur Phencyclidine Scrn Ur Amphetamines Screen U Benzodiazepines Scrn Urine Cocaine Screen U Marijuana (THC) Screen Ethylene Glycol Volat Analys Perform On Ethyl Alcohol Ethyl Alcohol mg/dL Ethyl Alcohol g/dL Methyl Alcohol Level Isopropyl Alc, Quant Acetone, Qual Acetone Level COVID-19 (ALLEN) COVID-19 Clin Com 01/28/22 01/28/22 01/28/22 01:16 01:16 01:16 WBC RBC Hgb Hct MCV MCH MCHC RDW Plt Count MPV Immature Gran % (Auto) Neut % (Auto) Lymph % (Auto) [place] % (Auto) Eos % (Auto) Baso % (Auto) Lymph # (Auto) [place] # (Auto) Eos # (Auto) Baso # (Auto) Abs Immat Gran (auto) Absolute Neuts (auto) Absolute Nucleated RBC Nucleated RBC % (auto) Smear Tech's Comments PT INR D-Dimer High Sensitivty O2 Saturation ABG pH at Pt Temp ABG pCO2 at Pt Temp ABG pO2 at Pt Temp ABG HCO3 ABG Base Excess (Actual) VBG pH VBG pCO2 VBG pO2 VBG HCO3 VBG O2 Saturation VBG Base Excess Sodium 139 Potassium 4.2 Chloride 96 Carbon Dioxide 14 L Anion Gap 33 H BUN 12 Creatinine 1.96 H Estim Creat Clear Calc 45.9 Estimated GFR 38 POC Glucose Random Glucose Fasting Glucose 445 H* D Osmolality 330 H Lactic Acid Lactic Acid F/U @ 2Hr Lactic Acid F/U @ 4Hr Uric Acid 10.3 H Calcium 8.3 L D Phosphorus 7.5 H Magnesium Total Bilirubin Direct Bilirubin AST ALT Alkaline Phosphatase Troponin I High Sens C-Reactive Protein 0.45 Total Protein Albumin Lipase Urine Color Urine Appearance Urine pH Ur Specific [place] Urine Protein Urine Glucose (UA) Urine Ketones Urine Blood Urine Nitrite Ur Leukocyte Esterase Urine RBC Urine WBC Ur Squamous Epith Cells Urine Bacteria Hyaline Casts Granular Casts Urine Mucus Urine Osmolality Ur Random Sodium Salicylates Urine Opiates Screen Urine Fentanyl Screen Acetaminophen Ur Barbiturates Screen Ur Phencyclidine Scrn Ur Amphetamines Screen U Benzodiazepines Scrn Urine Cocaine Screen U Marijuana (THC) Screen Ethylene Glycol Volat Analys Perform On Ethyl Alcohol < 10 Ethyl Alcohol mg/dL Ethyl Alcohol g/dL Methyl Alcohol Level Isopropyl Alc, Quant Acetone, Qual Acetone Level COVID-19 (ALLEN) COVID-19 Clin Com 01/28/22 01/28/22 01/28/22 01:21 01:21 02:34 WBC 8.4 RBC 4.47 L Hgb 13.2 L Hct 40.9 L MCV 91.5 MCH 29.5 MCHC 32.3 RDW 15.9 Plt Count 104 L MPV 9.8 Immature Gran % (Auto) Neut % (Auto) Lymph % (Auto) [place] % (Auto) Eos % (Auto) Baso % (Auto) Lymph # (Auto) [place] # (Auto) Eos # (Auto) Baso # (Auto) Abs Immat Gran (auto) Absolute Neuts (auto) Absolute Nucleated RBC 0.000 Nucleated RBC % (auto) 0.0 Smear Tech's Comments PT INR D-Dimer High Sensitivty O2 Saturation ABG pH at Pt Temp ABG pCO2 at Pt Temp ABG pO2 at Pt Temp ABG HCO3 ABG Base Excess (Actual) VBG pH VBG pCO2 VBG pO2 VBG HCO3 VBG O2 Saturation VBG Base Excess Sodium Potassium Chloride Carbon Dioxide Anion Gap BUN Creatinine Estim Creat Clear Calc Estimated GFR POC Glucose 457 H* Random Glucose Fasting Glucose Osmolality Lactic Acid Lactic Acid F/U @ 2Hr Lactic Acid F/U @ 4Hr 13.9 H* Uric Acid Calcium Phosphorus Magnesium Total Bilirubin Direct Bilirubin AST ALT Alkaline Phosphatase Troponin I High Sens C-Reactive Protein Total Protein Albumin Lipase Urine Color Urine Appearance Urine pH Ur Specific [place] Urine Protein Urine Glucose (UA) Urine Ketones Urine Blood Urine Nitrite Ur Leukocyte Esterase Urine RBC Urine WBC Ur Squamous Epith Cells Urine Bacteria Hyaline Casts Granular Casts Urine Mucus Urine Osmolality Ur Random Sodium Salicylates Urine Opiates Screen Urine Fentanyl Screen Acetaminophen Ur Barbiturates Screen Ur Phencyclidine Scrn Ur Amphetamines Screen U Benzodiazepines Scrn Urine Cocaine Screen U Marijuana (THC) Screen Ethylene Glycol Volat Analys Perform On Ethyl Alcohol Ethyl Alcohol mg/dL Ethyl Alcohol g/dL Methyl Alcohol Level Isopropyl Alc, Quant Acetone, Qual Acetone Level COVID-19 (ALLEN) COVID-19 Clin Com 01/28/22 01/28/22 01/28/22 03:54 05:02 05:25 WBC 5.5 RBC 4.14 L Hgb 12.1 L Hct 36.8 L MCV 88.9 MCH 29.2 MCHC 32.9 RDW 15.7 Plt Count 71 L D MPV 9.9 Immature Gran % (Auto) 0.5 H Neut % (Auto) 85.8 H Lymph % (Auto) 7.1 L [place] % (Auto) 6.4 Eos % (Auto) 0.0 Baso % (Auto) 0.2 Lymph # (Auto) 0.4 L [place] # (Auto) 0.4 Eos # (Auto) 0.0 Baso # (Auto) 0.0 Abs Immat Gran (auto) 0.03 Absolute Neuts (auto) 4.7 Absolute Nucleated RBC 0.000 Nucleated RBC % (auto) 0.0 Smear Tech's Comments PT INR D-Dimer High Sensitivty O2 Saturation ABG pH at Pt Temp ABG pCO2 at Pt Temp ABG pO2 at Pt Temp ABG HCO3 ABG Base Excess (Actual) VBG pH VBG pCO2 VBG pO2 VBG HCO3 VBG O2 Saturation VBG Base Excess Sodium Potassium Chloride Carbon Dioxide Anion Gap BUN Creatinine Estim Creat Clear Calc Estimated GFR POC Glucose 422 H* 411 H* Random Glucose Fasting Glucose Osmolality Lactic Acid Lactic Acid F/U @ 2Hr Lactic Acid F/U @ 4Hr Uric Acid Calcium Phosphorus Magnesium Total Bilirubin Direct Bilirubin AST ALT Alkaline Phosphatase Troponin I High Sens C-Reactive Protein Total Protein Albumin Lipase Urine Color Urine Appearance Urine pH Ur Specific [place] Urine Protein Urine Glucose (UA) Urine Ketones Urine Blood Urine Nitrite Ur Leukocyte Esterase Urine RBC Urine WBC Ur Squamous Epith Cells Urine Bacteria Hyaline Casts Granular Casts Urine Mucus Urine Osmolality Ur Random Sodium Salicylates Urine Opiates Screen Urine Fentanyl Screen Acetaminophen Ur Barbiturates Screen Ur Phencyclidine Scrn Ur Amphetamines Screen U Benzodiazepines Scrn Urine Cocaine Screen U Marijuana (THC) Screen Ethylene Glycol Volat Analys Perform On Ethyl Alcohol Ethyl Alcohol mg/dL Ethyl Alcohol g/dL Methyl Alcohol Level Isopropyl Alc, Quant Acetone, Qual Acetone Level COVID-19 (ALLEN) COVID-19 Clin Com 01/28/22 01/28/22 01/28/22 05:25 05:25 05:25 WBC RBC Hgb Hct MCV MCH MCHC RDW Plt Count MPV Immature Gran % (Auto) Neut % (Auto) Lymph % (Auto) [place] % (Auto) Eos % (Auto) Baso % (Auto) Lymph # (Auto) [place] # (Auto) Eos # (Auto) Baso # (Auto) Abs Immat Gran (auto) Absolute Neuts (auto) Absolute Nucleated RBC Nucleated RBC % (auto) Smear Tech's Comments PT INR D-Dimer High Sensitivty O2 Saturation ABG pH at Pt Temp ABG pCO2 at Pt Temp ABG pO2 at Pt Temp ABG HCO3 ABG Base Excess (Actual) VBG pH VBG pCO2 VBG pO2 VBG HCO3 VBG O2 Saturation VBG Base Excess Sodium 139 Potassium 4.2 Chloride 96 Carbon Dioxide 23 Anion Gap 24 H BUN 13 Creatinine 2.08 H Estim Creat Clear Calc 43.2 Estimated GFR 35 POC Glucose Random Glucose 443 H* Fasting Glucose Osmolality 320 H Lactic Acid 9.7 H* Lactic Acid F/U @ 2Hr Lactic Acid F/U @ 4Hr Uric Acid Calcium 8.7 Phosphorus 3.4 Magnesium 1.6 Total Bilirubin 1.0 Direct Bilirubin AST 76 H ALT 32 Alkaline Phosphatase 146 H D Troponin I High Sens C-Reactive Protein Total Protein 6.7 D Albumin 3.9 D Lipase Urine Color Urine Appearance Urine pH Ur Specific [place] Urine Protein Urine Glucose (UA) Urine Ketones Urine Blood Urine Nitrite Ur Leukocyte Esterase Urine RBC Urine WBC Ur Squamous Epith Cells Urine Bacteria Hyaline Casts Granular Casts Urine Mucus Urine Osmolality Ur Random Sodium Salicylates Urine Opiates Screen Urine Fentanyl Screen Acetaminophen Ur Barbiturates Screen Ur Phencyclidine Scrn Ur Amphetamines Screen U Benzodiazepines Scrn Urine Cocaine Screen U Marijuana (THC) Screen Ethylene Glycol Volat Analys Perform On Ethyl Alcohol Ethyl Alcohol mg/dL Ethyl Alcohol g/dL Methyl Alcohol Level Isopropyl Alc, Quant Acetone, Qual Acetone Level COVID-19 (ALLEN) COVID-19 [place] 01/28/22 01/28/22 01/28/22 05:26 06:02 07:04 WBC RBC Hgb Hct MCV MCH MCHC RDW Plt Count MPV Immature Gran % (Auto) Neut % (Auto) Lymph % (Auto) [place] % (Auto) Eos % (Auto) Baso % (Auto) Lymph # (Auto) [place] # (Auto) Eos # (Auto) Baso # (Auto) Abs Immat Gran (auto) Absolute Neuts (auto) Absolute Nucleated RBC Nucleated RBC % (auto) Smear Tech's Comments PT INR D-Dimer High Sensitivty O2 Saturation ABG pH at Pt Temp ABG pCO2 at Pt Temp ABG pO2 at Pt Temp ABG HCO3 ABG Base Excess (Actual) VBG pH 7.25 L VBG pCO2 53 VBG pO2 50 VBG HCO3 23 VBG O2 Saturation 79.0 VBG Base Excess -4.0 Sodium Potassium Chloride Carbon Dioxide Anion Gap BUN Creatinine Estim Creat Clear Calc Estimated GFR POC Glucose 384 H* 339 H Random Glucose Fasting Glucose Osmolality Lactic Acid Lactic Acid F/U @ 2Hr Lactic Acid F/U @ 4Hr Uric Acid Calcium Phosphorus Magnesium Total Bilirubin Direct Bilirubin AST ALT Alkaline Phosphatase Troponin I High Sens C-Reactive Protein Total Protein Albumin Lipase Urine Color Urine Appearance Urine pH Ur Specific [place] Urine Protein Urine Glucose (UA) Urine Ketones Urine Blood Urine Nitrite Ur Leukocyte Esterase Urine RBC Urine WBC Ur Squamous Epith Cells Urine Bacteria Hyaline Casts Granular Casts Urine Mucus Urine Osmolality Ur Random Sodium Salicylates Urine Opiates Screen Urine Fentanyl Screen Acetaminophen Ur Barbiturates Screen Ur Phencyclidine Scrn Ur Amphetamines Screen U Benzodiazepines Scrn Urine Cocaine Screen U Marijuana (THC) Screen Ethylene Glycol Volat Analys Perform On Ethyl Alcohol Ethyl Alcohol mg/dL Ethyl Alcohol g/dL Methyl Alcohol Level Isopropyl Alc, Quant Acetone, Qual Acetone Level COVID-19 (ALLEN) COVID-19 [place] 01/28/22 01/28/22 01/28/22 08:04 09:54 11:07 WBC RBC Hgb Hct MCV MCH MCHC RDW Plt Count MPV Immature Gran % (Auto) Neut % (Auto) Lymph % (Auto) [place] % (Auto) Eos % (Auto) Baso % (Auto) Lymph # (Auto) [place] # (Auto) Eos # (Auto) Baso # (Auto) Abs Immat Gran (auto) Absolute Neuts (auto) Absolute Nucleated RBC Nucleated RBC % (auto) Smear Tech's Comments PT INR D-Dimer High Sensitivty O2 Saturation ABG pH at Pt Temp ABG pCO2 at Pt Temp ABG pO2 at Pt Temp ABG HCO3 ABG Base Excess (Actual) VBG pH VBG pCO2 VBG pO2 VBG HCO3 VBG O2 Saturation VBG Base Excess Sodium 141 Potassium 3.7 Chloride 97 Carbon Dioxide 32 H Anion Gap 16 BUN 14 Creatinine 2.10 H Estim Creat Clear Calc 47.0 Estimated GFR 35 POC Glucose 355 H* 333 H Random Glucose 311 H Fasting Glucose Osmolality Lactic Acid Lactic Acid F/U @ 2Hr Lactic Acid F/U @ 4Hr Uric Acid Calcium 8.1 L D Phosphorus 1.8 L Magnesium 1.5 L Total Bilirubin Direct Bilirubin AST ALT Alkaline Phosphatase Troponin I High Sens C-Reactive Protein Total Protein Albumin Lipase Urine Color Urine Appearance Urine pH Ur Specific [place] Urine Protein Urine Glucose (UA) Urine Ketones Urine Blood Urine Nitrite Ur Leukocyte Esterase Urine RBC Urine WBC Ur Squamous Epith Cells Urine Bacteria Hyaline Casts Granular Casts Urine Mucus Urine Osmolality Ur Random Sodium Salicylates Urine Opiates Screen Urine Fentanyl Screen Acetaminophen Ur Barbiturates Screen Ur Phencyclidine Scrn Ur Amphetamines Screen U Benzodiazepines Scrn Urine Cocaine Screen U Marijuana (THC) Screen Ethylene Glycol Volat Analys Perform On Ethyl Alcohol Ethyl Alcohol mg/dL Ethyl Alcohol g/dL Methyl Alcohol Level Isopropyl Alc, Quant Acetone, Qual Acetone Level COVID-19 (ALLEN) COVID-19 Clin Com 01/28/22 01/28/22 01/28/22 11:14 11:25 13:06 WBC RBC Hgb Hct MCV MCH MCHC RDW Plt Count MPV Immature Gran % (Auto) Neut % (Auto) Lymph % (Auto) [place] % (Auto) Eos % (Auto) Baso % (Auto) Lymph # (Auto) [place] # (Auto) Eos # (Auto) Baso # (Auto) Abs Immat Gran (auto) Absolute Neuts (auto) Absolute Nucleated RBC Nucleated RBC % (auto) Smear Tech's Comments PT INR D-Dimer High Sensitivty O2 Saturation ABG pH at Pt Temp ABG pCO2 at Pt Temp ABG pO2 at Pt Temp ABG HCO3 ABG Base Excess (Actual) VBG pH 7.40 VBG pCO2 53 VBG pO2 51 VBG HCO3 34 H VBG O2 Saturation 86.0 VBG Base Excess 7.8 Sodium Potassium Chloride Carbon Dioxide Anion Gap BUN Creatinine Estim Creat Clear Calc Estimated GFR POC Glucose 277 H Random Glucose Fasting Glucose Osmolality Lactic Acid 2.6 H* Lactic Acid F/U @ 2Hr Lactic Acid F/U @ 4Hr Uric Acid Calcium Phosphorus Magnesium Total Bilirubin Direct Bilirubin AST ALT Alkaline Phosphatase Troponin I High Sens C-Reactive Protein Total Protein Albumin Lipase Urine Color Urine Appearance Urine pH Ur Specific [place] Urine Protein Urine Glucose (UA) Urine Ketones Urine Blood Urine Nitrite Ur Leukocyte Esterase Urine RBC Urine WBC Ur Squamous Epith Cells Urine Bacteria Hyaline Casts Granular Casts Urine Mucus Urine Osmolality Ur Random Sodium Salicylates Urine Opiates Screen Urine Fentanyl Screen Acetaminophen Ur Barbiturates Screen Ur Phencyclidine Scrn Ur Amphetamines Screen U Benzodiazepines Scrn Urine Cocaine Screen U Marijuana (THC) Screen Ethylene Glycol Volat Analys Perform On Ethyl Alcohol Ethyl Alcohol mg/dL Ethyl Alcohol g/dL Methyl Alcohol Level Isopropyl Alc, Quant Acetone, Qual Acetone Level COVID-19 (ALLEN) COVID-19 Clin Com 01/28/22 01/28/22 01/28/22 13:20 14:26 15:54 WBC RBC Hgb Hct MCV MCH MCHC RDW Plt Count MPV Immature Gran % (Auto) Neut % (Auto) Lymph % (Auto) [place] % (Auto) Eos % (Auto) Baso % (Auto) Lymph # (Auto) [place] # (Auto) Eos # (Auto) Baso # (Auto) Abs Immat Gran (auto) Absolute Neuts (auto) Absolute Nucleated RBC Nucleated RBC % (auto) Smear Tech's Comments PT INR D-Dimer High Sensitivty O2 Saturation ABG pH at Pt Temp ABG pCO2 at Pt Temp ABG pO2 at Pt Temp ABG HCO3 ABG Base Excess (Actual) VBG pH VBG pCO2 VBG pO2 VBG HCO3 VBG O2 Saturation VBG Base Excess Sodium Potassium Chloride Carbon Dioxide Anion Gap BUN Creatinine Estim Creat Clear Calc Estimated GFR POC Glucose 212 H 187 H Random Glucose Fasting Glucose Osmolality Lactic Acid Lactic Acid F/U @ 2Hr Lactic Acid F/U @ 4Hr Uric Acid Calcium Phosphorus Magnesium Total Bilirubin Direct Bilirubin AST ALT Alkaline Phosphatase Troponin I High Sens C-Reactive Protein Total Protein Albumin Lipase Urine Color Urine Appearance Urine pH Ur Specific [place] Urine Protein Urine Glucose (UA) Urine Ketones Urine Blood Urine Nitrite Ur Leukocyte Esterase Urine RBC Urine WBC Ur Squamous Epith Cells Urine Bacteria Hyaline Casts Granular Casts Urine Mucus Urine Osmolality Ur Random Sodium 48.0 Salicylates Urine Opiates Screen Urine Fentanyl Screen Acetaminophen Ur Barbiturates Screen Ur Phencyclidine Scrn Ur Amphetamines Screen U Benzodiazepines Scrn Urine Cocaine Screen U Marijuana (THC) Screen Ethylene Glycol Volat Analys Perform On Ethyl Alcohol Ethyl Alcohol mg/dL Ethyl Alcohol g/dL Methyl Alcohol Level Isopropyl Alc, Quant Acetone, Qual Acetone Level COVID-19 (ALLEN) COVID-19 Clin Com 01/28/22 18:06 WBC RBC Hgb Hct MCV MCH MCHC RDW Plt Count MPV Immature Gran % (Auto) Neut % (Auto) Lymph % (Auto) [place] % (Auto) Eos % (Auto) Baso % (Auto) Lymph # (Auto) [place] # (Auto) Eos # (Auto) Baso # (Auto) Abs Immat Gran (auto) Absolute Neuts (auto) Absolute Nucleated RBC Nucleated RBC % (auto) Smear Tech's Comments PT INR D-Dimer High Sensitivty O2 Saturation ABG pH at Pt Temp ABG pCO2 at Pt Temp ABG pO2 at Pt Temp ABG HCO3 ABG Base Excess (Actual) VBG pH VBG pCO2 VBG pO2 VBG HCO3 VBG O2 Saturation VBG Base Excess Sodium Potassium Chloride Carbon Dioxide Anion Gap BUN Creatinine Estim Creat Clear Calc Estimated GFR POC Glucose 199 H Random Glucose Fasting Glucose Osmolality Lactic Acid Lactic Acid F/U @ 2Hr Lactic Acid F/U @ 4Hr Uric Acid Calcium Phosphorus Magnesium Total Bilirubin Direct Bilirubin AST ALT Alkaline Phosphatase Troponin I High Sens C-Reactive Protein Total Protein Albumin Lipase Urine Color Urine Appearance Urine pH Ur Specific [place] Urine Protein Urine Glucose (UA) Urine Ketones Urine Blood Urine Nitrite Ur Leukocyte Esterase Urine RBC Urine WBC Ur Squamous Epith Cells Urine Bacteria Hyaline Casts Granular Casts Urine Mucus Urine Osmolality Ur Random Sodium Salicylates Urine Opiates Screen Urine Fentanyl Screen Acetaminophen Ur Barbiturates Screen Ur Phencyclidine Scrn Ur Amphetamines Screen U Benzodiazepines Scrn Urine Cocaine Screen U Marijuana (THC) Screen Ethylene Glycol Volat Analys Perform On Ethyl Alcohol Ethyl Alcohol mg/dL Ethyl Alcohol g/dL Methyl Alcohol Level Isopropyl Alc, Quant Acetone, Qual Acetone Level COVID-19 (ALLEN) COVID-19 Clin Com Quality Stroke Does the patient have a stroke diagnosis?: No VTE Prior VTE?: No VTE Risk Level:: Medical - moderate - high VTE Device Contraindication: N/A - Device Ordered VTE Drug Contraindication: N/A - Med Ordered Critical Care Time Critical Care Time (minutes): 60
[2022-01-28 20:04] LABS: Glucose, Whole Blood 173 mg/dL (60-115)
[2022-01-28 21:56] LABS: Alanine Aminotransferase 28 U/L (0-40); Albumin Level 3.5 g/dL (3.5-5.0); Alkaline Phosphatase 120 U/L (39-117); Anion Gap 14 (12-20); Aspartate Amino Transferase 53 U/L (5-37); Bilirubin Total 0.9 mg/dL (0.0-1.0); Blood Urea Nitrogen 16 mg/dL (9-16); Calcium 7.7 mg/dL (8.4-10.2); Carbon Dioxide 31 mmol/L (22-29); Chloride 100 mmol/L (96-108); Creatinine Clr Calc Pharmacy 48.4; Estimated Glomerular Filt Rate 36; Glucose Random 145 mg/dL (60-115); Magnesium 1.8 mg/dL (1.6-2.6); Phosphorus 2.7 mg/dL (2.7-4.5); Potassium 3.7 mmol/L (3.3-5.1); Sodium 141 mmol/L (135-145); Total Protein 5.7 g/dL (6.5-8.0)
[2022-01-28 22:09] LABS: Glucose, Whole Blood 131 mg/dL (60-115)
[2022-01-28] MEDS: Acetaminophen 325 MG TABLET 975 MG PO (23:20)
[2022-01-28] MEDS: Insulin Glargine,Hum.rec.anlog 100 UNIT/ML 10 ML VIAL 50 UNIT SUBCUT (23:52)
[2022-01-29] VITALS (18 sets, daily range): BP systolic 127–152; BP diastolic 70–90; PULSE 64–86; RESP 14–20; TEMP 36.1–37.4; O2SAT 91–100
[2022-01-29 01:08] LABS: Glucose, Whole Blood 115 mg/dL (60-115)
[2022-01-29 05:59] LABS: Eosinophils Percent Auto 0.2 % (0-4); Mean Corpuscular Volume 87.5 fL (80.0-98.0); NRBC Pct Auto 0.3 /100WBC (0.0-0.2); PLT CLUMP 1; SCAN SMEAR FLAG 1
[2022-01-29 06:01] LABS: Basophils Percent Auto 0.2 % (0-2); Hematocrit 32.2 % (42.0-52.0); Imm Gran Abs Auto 0.05 X10*3/uL (0.00-0.03); Imm Gran Pct Auto 0.8 % (0.0-0.4); Lymphocytes Absolute Auto 1.3 X10*3/uL (1.2-4.9); Lymphocytes Percent Auto 20.2 % (20-40); Mean Corpuscular HGB Conc 34.2 g/dl (31.0-36.0); Mean Corpuscular Hemoglobin 29.9 pg (27.0-33.0); Mean Platelet Volume 10.4 fL (9.4-12.4); Monocytes Absolute Auto 0.6 X10*3/uL (0.1-1.2); Monocytes Percent Auto 8.3 % (2-11); Neutrophils Absolute Auto 4.7 x10*3/uL (2.0-8.3); Neutrophils Percent Auto 70.3 % (45-73); Red Blood Count 3.68 X10*6/uL (4.60-5.80); Red Cell Distribution Width 16.1 % (11.0-16.0)
[2022-01-29 06:02] LABS: MANUAL DIFF FLAG NO; Platelet Count 59 X10*3/uL (160-400); White Blood Count 6.6 X10*3/uL (4.8-10.8)
[2022-01-29 06:16] LABS: Alanine Aminotransferase 28 U/L (0-40); Albumin Level 3.6 g/dL (3.5-5.0); Alkaline Phosphatase 130 U/L (39-117); Anion Gap 14 (12-20); Aspartate Amino Transferase 55 U/L (5-37); Bilirubin Total 0.7 mg/dL (0.0-1.0); Blood Urea Nitrogen 15 mg/dL (9-16); Carbon Dioxide 31 mmol/L (22-29); Chloride 99 mmol/L (96-108); Creatinine Clr Calc Pharmacy 57.9; Estimated Glomerular Filt Rate 43; Glucose Random 66 mg/dL (60-115); Phosphorus 2.3 mg/dL (2.7-4.5); Potassium 3.5 mmol/L (3.3-5.1); Sodium 140 mmol/L (135-145)
[2022-01-29 06:21] LABS: Glucose, Whole Blood 51 mg/dL (60-115)
[2022-01-29] MEDS: ondansetron HCL 4 MG/2 ML VIAL IVPUSH ×3 (06:23→20:13)
--- NOTE | 2022-01-29 06:26 | P.EN_ITS ---
Event Note Date of Service: 01/29/22 Event Note: Pt doing well this am he also had a good night sleep. The patient and was started on long-acting insulin last night based on his home dose, which is known the patient had not been taking because of his drinking habits. Labs are currently pending, this morning sugar was 50 but the patient was awake and talking, he did have 2 little cans of or issues. Zofran given for nausea like symptoms without vomiting. The patient will benefit from having a diabetic diet, substance abuse counseling. Otherwise the patient is hemodynamically stable; at this point the patient does no longer require ICU care, the case was discussed in detail with Dr. Sotelo and the patient will be transferred to [facility] [place]. Case was discussed in detail with Dr. Yañez. He is aware of all the above as well as the plan of care for this patient.
[2022-01-29 06:40] LABS: Glucose, Whole Blood 61 mg/dL (60-115)
[2022-01-29 07:10] LABS: Glucose, Whole Blood 92 mg/dL (60-115)
[2022-01-29] MEDS: Thiamine HCL 100 MG in 0.9 % Sodium Chloride 100 ML 202 MG IV (09:58)
[2022-01-29] MEDS: cloNIDine HCL 0.2 MG TABLET PO ×2 (10:02→20:14)
[2022-01-29] MEDS: lamoTRIgine 100 MG TABLET 200 MG PO ×2 (10:03→20:13)
[2022-01-29] MEDS: Pyridoxine HCl (Vitamin B6) 50 MG TABLET OG-TUBE (10:03)
[2022-01-29] MEDS: Pantoprazole Sodium 40 MG/10 ML VIAL IVPUSH (10:04)
[2022-01-29] MEDS: Folic Acid 1 MG in 0.9 % Sodium Chloride 50 ML 100.4 MG IV (10:20)
[2022-01-29] MEDS: Dextrose 50 % 25 GM/50 ML SYRINGE IVPUSH (11:40)
[2022-01-29 11:47] LABS: Glucose, Whole Blood 38 mg/dL (60-115)
[2022-01-29 11:58] LABS: Glucose, Whole Blood 139 mg/dL (60-115)
[2022-01-29] MEDS: Dextrose 10 % 1,000 ML 50 ML IVCONT (12:07)
[2022-01-29] MEDS: Heparin Sodium,Porcine 5,000 UNIT/ML VIAL 5000 UNIT SUBCUT ×2 (12:12→22:58)
--- NOTE | 2022-01-29 13:00 | HO.PM.IMPN ---
Subjective Subjective Date of Service: 01/29/22 <Patience Wen NP - Last Filed: 01/29/22 13:12> 02/03/22 <Elio Mims MD - Last Filed: 02/03/22 09:17> Review of Systems Follow-up, ICU transfer, DKA Very poor appetite Nausea Denies chest pain, shortness of breath <Patience Wen NP - Last Filed: 01/29/22 13:12> Physical Exam Vital Signs: Vital Signs: Last Vital Signs Temp 98.7 F 01/29/22 08:00 Pulse 66 01/29/22 12:00 Resp 18 01/29/22 12:00 BP 140/70 H 01/29/22 12:00 Pulse Ox 96 01/29/22 12:00 O2 Del Method 01/29/22 12:00 O2 Flow Rate 2 01/29/22 06:00 FiO2 30 01/28/22 15:00 Oxygen Flow Rate 2 01/27/22 19:29 BMI result Body Mass Index 30.0 <Patience Wen NP - Last Filed: 01/29/22 13:12> Appearing in no acute distress lung sounds are clear to auscultation heart regular rate rhythm, clear S1, S2 positive bowel sounds, abdomen is soft, nontender neuro patient is alert x3, no focal deficits <Patience Wen NP - Last Filed: 01/29/22 13:12> Objective Data Active Medications Acetaminophen (Acetaminophen 325 Mg Tablet) 975 mg PO Q8H PRN PRN Reason: Headache Last Admin: 01/28/22 23:20 Dose: 975 mg Documented By: LINNEA Clonidine HCl (Clonidine Hcl 0.2 Mg Tablet) 0.2 mg PO BID [facility]; Protocol Last Admin: 01/29/22 10:02 Dose: 0.2 mg Documented By: ERNA Dextrose (Dextrose 50 % 25 Gm/50 Ml Syringe) 25 gm IVPUSH Q15M PRN; Protocol PRN Reason: per Hypoglycemia Standing Ord. Last Admin: 01/29/22 11:40 Dose: 25 gm Documented By: ERNA Glucose (Glucose Gel 15 Gm Gel..Gram.) 15 gm PO Q15M PRN; Protocol PRN Reason: per Hypoglycemia Standing Ord. Heparin Sodium (Porcine) (Heparin Sodium,Porcine 5,000 Unit/Ml Vial) 5,000 unit SUBCUT Q12H [facility] Last Admin: 01/29/22 12:12 Dose: 5,000 unit Documented By: ERNA Propofol (Diprivan) 1,000 mg in 100 mls @ 0 mls/hr IVCONT .Q0M [facility]; Protocol Last Titration: 01/28/22 15:36 Dose: 0 mcg/kg/min, 0 mls/hr Documented By: ATIILO Thiamine HCl 100 mg/ Sodium (Chloride) 101 mls @ 202 mls/hr IV DAILY [facility] Last Infusion: 01/29/22 10:49 Dose: 0 mls/hr Documented By: ERNA Folic Acid 1 mg/ Sodium (Chloride) 50.2 mls @ 100.4 mls/hr IV DAILY [facility] Last Infusion: 01/29/22 12:19 Dose: 0 mls/hr Documented By: ERNA Dextrose (D10) 1,000 mls @ 50 mls/hr IVCONT .Q20H [facility] Last Admin: 01/29/22 12:07 Dose: 50 mls/hr Documented By: ERNA Potassium Phosphate (Kphos) 15 mmol in 250 mls @ 62.5 mls/hr IV Q4H [facility] Stop: 01/29/22 20:44 Insulin Glargine (Insulin Glargine,Hum.Rec.Anlog 100 Unit/Ml 10 Ml Vial) 50 unit SUBCUT BEDTIME [facility] Last Admin: 01/28/22 23:52 Dose: 50 unit Documented By: LINNEA Insulin Human Lispro (Insulin Lispro 100 Unit/Ml 3 Ml Vial) 0 unit SUBCUT QIDACHS [facility]; Protocol Last Admin: 01/29/22 12:07 Dose: Not Given Documented By: ERNA Non-Admin Reason: No Insulin Coverage Lamotrigine (Lamotrigine 100 Mg Tablet) 200 mg PO BID [facility] Last Admin: 01/29/22 10:03 Dose: 200 mg Documented By: ERNA Naloxone HCl (Naloxone Hcl 0.4 Mg/Ml Vial) 0.2 mg IVPUSH Q2M PRN PRN Reason: Excessive sedation or RR < 8 Ondansetron HCl (Ondansetron Hcl 4 Mg/2 Ml Vial) 4 mg IVPUSH Q8H PRN PRN Reason: Nausea Last Admin: 01/29/22 12:07 Dose: 4 mg Documented By: ERNA Pantoprazole Sodium (Pantoprazole Sodium 40 Mg/10 Ml Vial) 40 mg IVPUSH DAILY [facility] Last Admin: 01/29/22 10:04 Dose: 40 mg Documented By: ERNA Pyridoxine HCl (Pyridoxine Hcl (Vitamin B6) 50 Mg Tablet) 50 mg OG-TUBE DAILY [facility] Last Admin: 01/29/22 10:03 Dose: 50 mg Documented By: ERNA Quetiapine Fumarate (Quetiapine Fumarate 400 Mg Tablet) 400 mg PO BEDTIME MA[facility]OR Trazodone HCl (Trazodone Hcl 100 Mg Tablet) 200 mg PO BEDTIME MAINOR <Patience Wen NP - Last Filed: 01/29/22 13:12> Labs CBC & Chem 7: : 01/29/22 05:15 01/31/22 06:10 <Patience Wen [employer] - Last Filed: 01/29/22 13:12> Labs: Laboratory Results - last 24 hr 01/28/22 01/28/22 01/28/22 13:06 13:20 14:26 MCV MCH MCHC RDW Plt Count MPV Immature Gran % (Auto) Neut % (Auto) Lymph % (Auto) [place] % (Auto) Eos % (Auto) Baso % (Auto) Lymph # (Auto) [place] # (Auto) Eos # (Auto) Baso # (Auto) Abs Immat Gran (auto) Absolute Neuts (auto) Absolute Nucleated RBC Nucleated RBC % (auto) Anion Gap Estim Creat Clear Calc Estimated GFR POC Glucose 212 H Random Glucose Lactic Acid 2.6 H* Calcium Phosphorus Magnesium Total Bilirubin AST ALT Alkaline Phosphatase Total Protein Albumin Ur Random Sodium 48.0 01/28/22 01/28/22 01/28/22 15:54 18:06 20:02 MCV MCH MCHC RDW Plt Count MPV Immature Gran % (Auto) Neut % (Auto) Lymph % (Auto) [place] % (Auto) Eos % (Auto) Baso % (Auto) Lymph # (Auto) [place] # (Auto) Eos # (Auto) Baso # (Auto) Abs Immat Gran (auto) Absolute Neuts (auto) Absolute Nucleated RBC Nucleated RBC % (auto) Anion Gap Estim Creat Clear Calc Estimated GFR POC Glucose 187 H 199 H 173 H Random Glucose Lactic Acid Calcium Phosphorus Magnesium Total Bilirubin AST ALT Alkaline Phosphatase Total Protein Albumin Ur Random Sodium 01/28/22 01/28/22 01/29/22 21:28 22:04 01:04 MCV MCH MCHC RDW Plt Count MPV Immature Gran % (Auto) Neut % (Auto) Lymph % (Auto) [place] % (Auto) Eos % (Auto) Baso % (Auto) Lymph # (Auto) [place] # (Auto) Eos # (Auto) Baso # (Auto) Abs Immat Gran (auto) Absolute Neuts (auto) Absolute Nucleated RBC Nucleated RBC % (auto) Anion Gap 14 Estim Creat Clear Calc 48.4 Estimated GFR 36 POC Glucose 131 H 115 Random Glucose 145 H D Lactic Acid Calcium 7.7 L Phosphorus 2.7 Magnesium 1.8 Total Bilirubin 0.9 AST 53 H ALT 28 Alkaline Phosphatase 120 H Total Protein 5.7 L Albumin 3.5 Ur Random Sodium 01/29/22 01/29/22 01/29/22 05:15 05:15 06:18 MCV 87.5 MCH 29.9 MCHC 34.2 RDW 16.1 H Plt Count 59 L MPV 10.4 Immature Gran % (Auto) 0.8 H Neut % (Auto) 70.3 Lymph % (Auto) 20.2 [place] % (Auto) 8.3 Eos % (Auto) 0.2 Baso % (Auto) 0.2 Lymph # (Auto) 1.3 [place] # (Auto) 0.6 Eos # (Auto) 0.0 Baso # (Auto) 0.0 Abs Immat Gran (auto) 0.05 H Absolute Neuts (auto) 4.7 Absolute Nucleated RBC 0.020 H Nucleated RBC % (auto) 0.3 H Anion Gap 14 Estim Creat Clear Calc 57.9 Estimated GFR 43 POC Glucose 51 L* Random Glucose 66 D Lactic Acid Calcium 8.0 L Phosphorus 2.3 L Magnesium Total Bilirubin 0.7 AST 55 H ALT 28 Alkaline Phosphatase 130 H Total Protein 6.0 L Albumin 3.6 Ur Random Sodium 01/29/22 01/29/22 01/29/22 06:36 07:07 11:43 MCV MCH MCHC RDW Plt Count MPV Immature Gran % (Auto) Neut % (Auto) Lymph % (Auto) [place] % (Auto) Eos % (Auto) Baso % (Auto) Lymph # (Auto) [place] # (Auto) Eos # (Auto) Baso # (Auto) Abs Immat Gran (auto) Absolute Neuts (auto) Absolute Nucleated RBC Nucleated RBC % (auto) Anion Gap Estim Creat Clear Calc Estimated GFR POC Glucose 61 92 38 L* Random Glucose Lactic Acid Calcium Phosphorus Magnesium Total Bilirubin AST ALT Alkaline Phosphatase Total Protein Albumin Ur Random Sodium 01/29/22 11:55 MCV MCH MCHC RDW Plt Count MPV Immature Gran % (Auto) Neut % (Auto) Lymph % (Auto) [place] % (Auto) Eos % (Auto) Baso % (Auto) Lymph # (Auto) [place] # (Auto) Eos # (Auto) Baso # (Auto) Abs Immat Gran (auto) Absolute Neuts (auto) Absolute Nucleated RBC Nucleated RBC % (auto) Anion Gap Estim Creat Clear Calc Estimated GFR POC Glucose 139 H Random Glucose Lactic Acid Calcium Phosphorus Magnesium Total Bilirubin AST ALT Alkaline Phosphatase Total Protein Albumin Ur Random Sodium <Patience Wen NP - Last Filed: 01/29/22 13:12> Microbiology Microbiology Results: Microbiology 01/27/22 23:08 Blood Culture - Preliminary Blood - Venous No growth after 24 hours. 01/27/22 22:53 Blood Culture - Preliminary Blood - Venous No growth after 24 hours. <Patience Wen NP - Last Filed: 01/29/22 13:12> Assessment and Plan (1) DKA (diabetic ketoacidosis): Status: Acute <Patience Wen NP - Last Filed: 01/29/22 13:12> Assessment and Plan: 41-year-old man admitted to the ICU initially with DKA, acute respiratory failure. He was being treated for this in the ER and he went into respiratory failure and ended up intubated, according to the notes the patient's glottis had been very swollen. He was subsequently transferred to the ICU and treated for DKA with IV fluids, insulin drip and close monitoring of chemistry. He was then extubated without difficulty on room air. He was then transferred to medical floor DKA Treated with insulin drip, IV fluids in the ICU Blood sugar now on the lower side secondary to poor p.o. intake continued nausea D10 started Encourage oral intake Follow blood sugars very closely still with some nausea monitor BMP closely Metabolic acidosis /alcoholic ketoacidosis. Secondary to DKA, alcohol use Mostly resolved SHEILA. Secondary to DKA Slowly resolving with volume repletion Followed BMP Acute respiratory failure initially intubated in ED then extubated in ICU Possibly secondary to allergic reaction to Ativan as per ICU note and edematous glottis Thrombocytopenia, chronic. Likely related to some sort of liver abnormality due to alcohol intake Monitor Hypophosphatemia phos placement Mental health Continue home medications DVT prophylaxis with heparin attending Dr. Mims Full code Patient requires continued hospitalization due toFor treatment of DKA, close electrolyte monitoring, SHEILA requiring IV fluids <Patience Wen NP - Last Filed: 01/29/22 13:12> Quality Stroke Does the patient have a stroke diagnosis?: No <Patience Wen NP - Last Filed: 01/29/22 13:12> VTE Prior VTE?: No <Patience Wen NP - Last Filed: 01/29/22 13:12> VTE Risk Level:: Medical - moderate - high <Patience Wen NP - Last Filed: 01/29/22 13:12> VTE Device Contraindication: N/A - Device Ordered <Patience Wen NP - Last Filed: 01/29/22 13:12> VTE Drug Contraindication: N/A - Med Ordered <Patience Wen NP - Last Filed: 01/29/22 13:12>
[2022-01-29] MEDS: PHENobarbitaL sodium 130 MG/ML IM ONCE 260 MG IM (15:39)
[2022-01-29] MEDS: Potassium Phosphate/NS 15 MMOL/250 ML PLAST..BAG 62.5 MMOL IV ×2 (15:46→20:01)
[2022-01-29 16:31] LABS: Anion Gap 12 (12-20); Blood Urea Nitrogen 13 mg/dL (9-16); Calcium 7.9 mg/dL (8.4-10.2); Carbon Dioxide 32 mmol/L (22-29); Chloride 97 mmol/L (96-108); Estimated Glomerular Filt Rate 52; Glucose Random 80 mg/dL (60-115); Potassium 3.3 mmol/L (3.3-5.1); Sodium 138 mmol/L (135-145)
[2022-01-29 16:37] LABS: Glucose, Whole Blood 81 mg/dL (60-115)
[2022-01-29] MEDS: Omeprazole 20 MG CAPSULE.DR PO (17:11)
--- NOTE | 2022-01-29 17:27 | PC.NURSE ---
patient transferred from ICU immediately after reports of severe headache, vomiting,tremors, not feeling well, stating is withdrawing. CIWA added and it was 24. Reported to Marquis RICHARDS, patient given one dose of phenergan and started on phenobarbital.
[2022-01-29] MEDS: PHENobarbitaL sodium 130 MG/ML VIAL IM Q3Hx2 200 MG IM ×2 (20:05→22:58)
[2022-01-29] MEDS: traZODone HCL 100 MG TABLET 200 MG PO (20:14)
[2022-01-29] MEDS: QUEtiapine Fumarate 400 MG TABLET PO (20:14)
[2022-01-29 20:43] LABS: Glucose, Whole Blood 90 mg/dL (60-115)
[2022-01-30 03:55] VITALS: BP 133/82; PULSE 96; RESP 19; TEMP 37.2; O2SAT 93
[2022-01-30] MEDS: Omeprazole 20 MG CAPSULE.DR PO ×2 (05:42→16:58)
[2022-01-30] MEDS: Acetaminophen 325 MG TABLET 975 MG PO ×3 (05:51→21:12)
[2022-01-30 06:00] VITALS: BMI 31.3
[2022-01-30 07:40] LABS: Glucose, Whole Blood 239 mg/dL (60-115)
[2022-01-30] MEDS: lamoTRIgine 100 MG TABLET 200 MG PO ×2 (07:55→20:18)
[2022-01-30] MEDS: Insulin Lispro 100 UNIT/ML 3 ML VIAL SUBCUT ×3 (07:55→20:16)
[2022-01-30] MEDS: ondansetron HCL 4 MG/2 ML VIAL IVPUSH ×2 (07:56→17:03)
[2022-01-30] MEDS: cloNIDine HCL 0.2 MG TABLET PO ×2 (07:56→20:18)
[2022-01-30] MEDS: PHENobarbitaL 15 MG TABLET 45 MG PO ×2 (07:56→20:19)
[2022-01-30 08:52] LABS: Magnesium 1.6 mg/dL (1.6-2.6)
--- NOTE | 2022-01-30 09:20 | MHC.CM.PN ---
Addendum entered by Esther Virgen 01/30/22 12:22: HCP COMPLETED, UPLOADED TO [facility] AND FILED IN CHART Original Note: PT REPORTS HE LIVES ALONE, DOES NOT HAVE SERVICES AT HOME. HAS DIABETIC EQUIPMENT AT HOME. HE IS COVID VACCINATED X2 (MODERNA). HIS PCP IS [facility] QU[facility], NOT ON FILE- FILE NOW UPDATED. FAMILY/FRIENDS WILL TRANSPORT HOME. NO HCP ON FILE, PT TO COMPLETE HCP WHILE HERE. IMM DELIVERED TO PT AND IN CHART. DISCHARGE PLAN: ANTICIPATE HOME WITH NO SERVICES
--- NOTE | 2022-01-30 09:48 | P.PNIM_ITS ---
Subjective Subjective Date of Service: 01/30/22 Review of Systems Follow-up, ICU transfer, DKA Very poor appetite Nausea Denies chest pain, shortness of breath Physical Exam Vital Signs: Vital Signs: Last Vital Signs Temp 98.9 F 01/30/22 03:55 Pulse 96 01/30/22 03:55 Resp 19 01/30/22 03:55 BP 133/82 01/30/22 03:55 Pulse Ox 93 01/30/22 03:55 O2 Del Method 01/30/22 04:00 O2 Flow Rate 2 01/29/22 06:00 FiO2 30 01/28/22 15:00 Oxygen Flow Rate 2 01/27/22 19:29 BMI result Body Mass Index 31.3 Appearing in no acute distress head is normocephalic atraumatic eyes pupils are PERRLA sclera is anicteric mouth throat mucous membranes are intact and moist neck is supple no lymphadenopathy, no JVD noted lung sounds are clear to auscultation heart regular rate rhythm, clear S1, S2 positive bowel sounds, abdomen is soft, nontender neuro patient is alert x3, no focal deficits Objective Data Active Medications Acetaminophen (Acetaminophen 325 Mg Tablet) 975 mg PO Q8H PRN PRN Reason: Headache Last Admin: 01/30/22 05:51 Dose: 975 mg Documented By: EKATERINA Clonidine HCl (Clonidine Hcl 0.2 Mg Tablet) 0.2 mg PO BID [facility]; Protocol Last Admin: 01/30/22 07:56 Dose: 0.2 mg Documented By: YOVANNY Dextrose (Dextrose 50 % 25 Gm/50 Ml Syringe) 25 gm IVPUSH Q15M PRN; Protocol PRN Reason: per Hypoglycemia Standing Ord. Last Admin: 01/29/22 11:40 Dose: 25 gm Documented By: ERNA Glucose (Glucose Gel 15 Gm Gel..Gram.) 15 gm PO Q15M PRN; Protocol PRN Reason: per Hypoglycemia Standing Ord. Heparin Sodium (Porcine) (Heparin Sodium,Porcine 5,000 Unit/Ml Vial) 5,000 unit SUBCUT Q12H [facility] Last Admin: 01/29/22 22:58 Dose: 5,000 unit Documented By: EKATERINA Dextrose (D10) 1,000 mls @ 50 mls/hr IVCONT .Q20H [facility] Last Infusion: 01/30/22 09:01 Dose: 0 mls/hr Documented By: YOVANNY Insulin Glargine (Insulin Glargine,Hum.Rec.Anlog 100 Unit/Ml 10 Ml Vial) 50 unit SUBCUT BEDTIME [facility] Last Admin: 01/29/22 20:12 Dose: Not Given Documented By: EKATERINA Non-Admin Reason: Held per Insulin Human Lispro (Insulin Lispro 100 Unit/Ml 3 Ml Vial) 0 unit SUBCUT QIDACHS [facility]; Protocol Last Admin: 01/30/22 07:55 Dose: 4 unit Documented By: YOVANNY Lamotrigine (Lamotrigine 100 Mg Tablet) 200 mg PO BID [facility] Last Admin: 01/30/22 07:55 Dose: 200 mg Documented By: YOVANNY Omeprazole (Omeprazole 20 Mg Capsule.Dr) 20 mg PO BID@0630,1630 [facility] Last Admin: 01/30/22 05:42 Dose: 20 mg Documented By: EKATERINA Ondansetron HCl (Ondansetron Hcl 4 Mg/2 Ml Vial) 4 mg IVPUSH Q8H PRN PRN Reason: Nausea Last Admin: 01/30/22 07:56 Dose: 4 mg Documented By: YOVANNY Pharmacy Consult (Consult Rx Etoh Phenob Po Only) 1 each MISCELLANE ONCE PRN; Protocol PRN Reason: Consult order Phenobarbital (Phenobarbital 15 Mg Tablet) 45 mg PO BID [facility] Stop: 01/31/22 21:01 Last Admin: 01/30/22 07:56 Dose: 45 mg Documented By: YOVANNY Phenobarbital (Phenobarbital 15 Mg Tablet) 15 mg PO BID [facility] Stop: 02/02/22 21:01 Phenobarbital (Phenobarbital 15 Mg Tablet) 15 mg PO DAILY [facility] Stop: 02/04/22 09:01 Quetiapine Fumarate (Quetiapine Fumarate 400 Mg Tablet) 400 mg PO BEDTIME [facility] Last Admin: 01/29/22 20:14 Dose: 400 mg Documented By: EKATERINA Trazodone HCl (Trazodone Hcl 100 Mg Tablet) 200 mg PO BEDTIME [facility] Last Admin: 01/29/22 20:14 Dose: 200 mg Documented By: EKATERINA Labs CBC & Chem 7: 01/29/22 05:15 01/29/22 15:57 Labs: Laboratory Results - last 24 hr 01/29/22 01/29/22 01/29/22 11:43 11:55 15:57 Anion Gap 12 Estim Creat Clear Calc 68.0 Estimated GFR 52 POC Glucose 38 L* 139 H Random Glucose 80 Lactic Acid Calcium 7.9 L Magnesium 01/29/22 01/29/22 01/29/22 15:58 16:20 20:05 Anion Gap Estim Creat Clear Calc Estimated GFR POC Glucose 81 90 Random Glucose Lactic Acid 1.0 Calcium Magnesium 01/30/22 01/30/22 07:16 08:17 Anion Gap Estim Creat Clear Calc Estimated GFR POC Glucose 239 H Random Glucose Lactic Acid Calcium Magnesium 1.6 Microbiology Microbiology Results: Microbiology 01/27/22 22:53 Blood Culture - Preliminary Blood - Venous No growth after 48 hours. 01/27/22 23:08 Blood Culture - Preliminary Blood - Venous No growth after 48 hours. Assessment and Plan (1) DKA (diabetic ketoacidosis): Status: Acute Plan 41-year-old man admitted to the ICU initially with DKA, acute respiratory failure. He was being treated for this in the ER and he went into respiratory failure and ended up intubated, according to the notes the patient's glottis had been very swollen. He was subsequently transferred to the ICU and treated for DKA with IV fluids, insulin drip and close monitoring of chemistry. He was then extubated without difficulty on room air. He was then transferred to medical floor DKA. Resolved Treated with insulin drip, IV fluids in the ICU Blood sugar now on the lower side secondary to poor p.o. intake continued nausea D10 started, will stop as blood sugar is increasing Encourage oral intake Follow blood sugars very closely still with some nausea monitor BMP closely Metabolic acidosis /alcoholic ketoacidosis. Secondary to DKA, alcohol use Mostly resolved SHEILA. Secondary to DKA Slowly resolving with volume repletion Followed BMP Acute respiratory failure initially intubated in ED then extubated in ICU Possibly secondary to allergic reaction to Ativan as per ICU note and edematous glottis Thrombocytopenia, chronic. Likely related to some sort of liver abnormality due to alcohol intake Monitor Hypophosphatemia phos replacement Mental health Continue home medications DVT prophylaxis with heparin attending Dr. Kramer Full code Patient requires continued hospitalization due to For treatment of DKA, close electrolyte monitoring, SHEILA requiring IV fluids Quality Stroke Does the patient have a stroke diagnosis?: No VTE Prior VTE?: No VTE Risk Level:: Medical - moderate - high VTE Device Contraindication: N/A - Device Ordered VTE Drug Contraindication: N/A - Med Ordered
[2022-01-30 10:17] LABS: Anion Gap 14 (12-20); Blood Urea Nitrogen 10 mg/dL (9-16); Calcium 7.4 mg/dL (8.4-10.2); Carbon Dioxide 29 mmol/L (22-29); Chloride 97 mmol/L (96-108); Creatinine Clr Calc Pharmacy 68.4; Estimated Glomerular Filt Rate 51; Glucose Random 284 mg/dL (60-115); Potassium 3.5 mmol/L (3.3-5.1); Sodium 136 mmol/L (135-145)
[2022-01-30 11:43] VITALS: BP 119/79; PULSE 81; RESP 18; TEMP 36.4; O2SAT 96
[2022-01-30 11:57] LABS: Glucose, Whole Blood 85 mg/dL (60-115)
--- NOTE | 2022-01-30 12:32 | MHC.CDI.CONC ---
CDI Concurrent Query Documentation Clarification: PHYSICIAN'S DOCUMENTATION REQUEST Date of Query: 01/30/22 1232 Patient Name: Yeison Pereyra Admit Date: 01/27/22 Dear Doctor, A review of the medical record indicates additional documentation may be needed. Please review below and update the documentation accordingly. Clinical Indicators: Is there a diagnosis that correlates with the below lab findings: Risk Factors/Clinical Indicators/Treatments LABS: calcium 7.4L Calcium gluconate Based on the above, could you clarify in the Progress Notes the appropriate diagnosis, if significant, that supports the above abnormalities and additional evaluation, monitoring, and/or treatment rendered: Hypocalcemia or other etiology of lab finding Labs indicate a diagnosis of (please specify) Other (please specify) Unable to determine Use of terms such as suspected, likely, concern for, or probable (associated with a specific diagnosis that is being evaluated, monitored, or treated as if it exists) are acceptable and can be coded in the inpatient setting, when documented at the time of discharge. Thank you, Breanna Araya [facility], CDIS Extension: [phone] Please use your independent medical judgment in providing your response. THIS QUERY IS PART OF THE PERMANENT MEDICAL RECORD Other Diagnosis: hypocalcemia
[2022-01-30] MEDS: Heparin Sodium,Porcine 5,000 UNIT/ML VIAL 5000 UNIT SUBCUT ×2 (13:19→23:41)
[2022-01-30 15:27] VITALS: BP 169/94; PULSE 74; RESP 18; TEMP 37.1; O2SAT 96
[2022-01-30 16:27] LABS: Glucose, Whole Blood 215 mg/dL (60-115)
--- NOTE | 2022-01-30 18:58 | PC.NURSE ---
Alert and oriented. ciwa score 3-7, medicated per OCT. C/O N/V, headache, vomited x1, prn tylenol and zofran given with good effect.
[2022-01-30 19:27] VITALS: BP 167/105; PULSE 78; RESP 18; TEMP 36.9; O2SAT 99
[2022-01-30 19:55] LABS: Glucose, Whole Blood 272 mg/dL (60-115)
[2022-01-30] MEDS: Insulin Glargine,Hum.rec.anlog 100 UNIT/ML 10 ML VIAL 50 UNIT SUBCUT (20:17)
[2022-01-30] MEDS: traZODone HCL 100 MG TABLET 200 MG PO (20:18)
[2022-01-30] MEDS: QUEtiapine Fumarate 400 MG TABLET PO (20:18)
[2022-01-30] MEDS: Melatonin 3 MG TABLET 6 MG PO (20:18)
[2022-01-30] MEDS: Prochlorperazine Edisylate 10 MG/2 ML VIAL 5 MG IVPUSH (21:33)
[2022-01-30 23:27] VITALS: BP 155/73; PULSE 97; RESP 17; TEMP 36.1; O2SAT 97
[2022-01-31 04:00] VITALS: BP 146/78; PULSE 74; RESP 17; TEMP 36.7; O2SAT 98
[2022-01-31] MEDS: Omeprazole 20 MG CAPSULE.DR PO ×2 (05:47→17:13)
[2022-01-31 06:00] VITALS: BMI 30.3
[2022-01-31 07:07] LABS: Anion Gap 14 (12-20); Blood Urea Nitrogen 9 mg/dL (9-16); Calcium 7.8 mg/dL (8.4-10.2); Carbon Dioxide 28 mmol/L (22-29); Chloride 101 mmol/L (96-108); Estimated Glomerular Filt Rate > 60; Glucose Random 100 mg/dL (60-115); Potassium 3.3 mmol/L (3.3-5.1); Sodium 140 mmol/L (135-145)
[2022-01-31 07:34] VITALS: BP 145/77; PULSE 93; RESP 16; TEMP 36.3; O2SAT 95
[2022-01-31 07:36] LABS: Glucose, Whole Blood 219 mg/dL (60-115)
[2022-01-31] MEDS: lamoTRIgine 100 MG TABLET 200 MG PO ×2 (07:38→20:37)
[2022-01-31] MEDS: PHENobarbitaL 15 MG TABLET 45 MG PO ×2 (07:38→20:36)
[2022-01-31] MEDS: Insulin Lispro 100 UNIT/ML 3 ML VIAL SUBCUT ×2 (07:38→20:38)
[2022-01-31] MEDS: cloNIDine HCL 0.2 MG TABLET PO ×2 (07:38→20:38)
--- NOTE | 2022-01-31 09:56 | HO.PM.IMPN ---
Subjective Subjective Date of Service: 01/31/22 Review of Systems Follow-up, ICU transfer, DKA appetite better Nausea subsided Denies chest pain, shortness of breath Physical Exam Vital Signs: Vital Signs: Last Vital Signs Temp 97.4 F 01/31/22 07:34 Pulse 93 01/31/22 07:34 Resp 16 01/31/22 07:34 BP 145/77 H 01/31/22 07:34 Pulse Ox 95 01/31/22 07:34 O2 Del Method 01/31/22 07:34 O2 Flow Rate 2 01/29/22 06:00 FiO2 30 01/28/22 15:00 Oxygen Flow Rate 2 01/27/22 19:29 BMI result Body Mass Index 30.3 Appearing in no acute distress lung sounds are clear to auscultation heart regular rate rhythm, clear S1, S2 positive bowel sounds, abdomen is soft, nontender neuro patient is alert x3, no focal deficits Objective Data Active Medications Acetaminophen (Acetaminophen 325 Mg Tablet) 975 mg PO Q8H PRN PRN Reason: Headache Last Admin: 01/30/22 21:12 Dose: 975 mg Documented By: CURTIS Clonidine HCl (Clonidine Hcl 0.2 Mg Tablet) 0.2 mg PO BID [facility]; Protocol Last Admin: 01/31/22 07:38 Dose: 0.2 mg Documented By: DEONDRE Dextrose (Dextrose 50 % 25 Gm/50 Ml Syringe) 25 gm IVPUSH Q15M PRN; Protocol PRN Reason: per Hypoglycemia Standing Ord. Last Admin: 01/29/22 11:40 Dose: 25 gm Documented By: ERNA Glucose (Glucose Gel 15 Gm Gel..Gram.) 15 gm PO Q15M PRN; Protocol PRN Reason: per Hypoglycemia Standing Ord. Heparin Sodium (Porcine) (Heparin Sodium,Porcine 5,000 Unit/Ml Vial) 5,000 unit SUBCUT Q12H [facility] Last Admin: 01/30/22 23:41 Dose: 5,000 unit Documented By: CURTIS Levofloxacin (Levaquin) 500 mg in 100 mls @ 100 mls/hr IV Q24H [facility] Insulin Glargine (Insulin Glargine,Hum.Rec.Anlog 100 Unit/Ml 10 Ml Vial) 50 unit SUBCUT BEDTIME [facility] Last Admin: 01/30/22 20:17 Dose: 50 unit Documented By: BETO Insulin Human Lispro (Insulin Lispro 100 Unit/Ml 3 Ml Vial) 0 unit SUBCUT QIDACHS [facility]; Protocol Last Admin: 01/31/22 07:38 Dose: 4 unit Documented By: DEONDRE Lamotrigine (Lamotrigine 100 Mg Tablet) 200 mg PO BID [facility] Last Admin: 01/31/22 07:38 Dose: 200 mg Documented By: DEONDRE Melatonin (Melatonin 3 Mg Tablet) 6 mg PO BEDTIME PRN PRN Reason: insomnia Last Admin: 01/30/22 20:18 Dose: 6 mg Documented By: BETO Omeprazole (Omeprazole 20 Mg Capsule.) 20 mg PO BID@0630,1630 [facility] Last Admin: 01/31/22 05:47 Dose: 20 mg Documented By: CURTIS Ondansetron HCl (Ondansetron Hcl 4 Mg/2 Ml Vial) 4 mg IVPUSH Q8H PRN PRN Reason: Nausea Last Admin: 01/30/22 17:03 Dose: 4 mg Documented By: YOVANNY Pharmacy Consult (Consult Rx Etoh Phenob Po Only) 1 each MISCELLANE ONCE PRN; Protocol PRN Reason: Consult order Phenobarbital (Phenobarbital 15 Mg Tablet) 45 mg PO BID [facility] Stop: 01/31/22 21:01 Last Admin: 01/31/22 07:38 Dose: 45 mg Documented By: DEONDRE Phenobarbital (Phenobarbital 15 Mg Tablet) 15 mg PO BID [facility] Stop: 02/02/22 21:01 Phenobarbital (Phenobarbital 15 Mg Tablet) 15 mg PO DAILY [facility] Stop: 02/04/22 09:01 Quetiapine Fumarate (Quetiapine Fumarate 400 Mg Tablet) 400 mg PO BEDTIME [facility] Last Admin: 01/30/22 20:18 Dose: 400 mg Documented By: BETO Trazodone HCl (Trazodone Hcl 100 Mg Tablet) 200 mg PO BEDTIME [facility] Last Admin: 01/30/22 20:18 Dose: 200 mg Documented By: BETO Labs CBC & Chem 7: 01/29/22 05:15 01/31/22 06:10 Labs: Laboratory Results - last 24 hr 01/30/22 01/30/22 01/30/22 08:17 11:41 15:29 Anion Gap 14 Estim Creat Clear Calc 68.4 Estimated GFR 51 POC Glucose 85 215 H Random Glucose 284 H D Calcium 7.4 L D 01/30/22 01/31/22 01/31/22 19:24 06:10 07:27 Anion Gap 14 Estim Creat Clear Calc 82.0 Estimated GFR > 60 POC Glucose 272 H 219 H Random Glucose 100 D Calcium 7.8 L Microbiology Microbiology Results: Microbiology 01/27/22 23:08 Blood Culture - Preliminary Blood - Venous No growth after 48 hours. 01/27/22 22:53 Blood Culture - Preliminary Blood - Venous Prelim: GPR Gram Stain only Assessment and Plan (1) DKA (diabetic ketoacidosis): Status: Acute Plan 41-year-old man admitted to the ICU initially with DKA, acute respiratory failure. He was being treated for this in the ER and he went into respiratory failure and ended up intubated, according to the notes the patient's glottis had been very swollen. He was subsequently transferred to the ICU and treated for DKA with IV fluids, insulin drip and close monitoring of chemistry. He was then extubated without difficulty on room air. He was then transferred to medical floor GNR bacteremia / Start Levaquin (PCN allergy) Follow final cx ID consult DKA. Resolved Treated with insulin drip, IV fluids in the ICU Blood sugar now on the lower side secondary to poor p.o. intake continued nausea D10 started, will stop as blood sugar is increasing Encourage oral intake monitor BMP closely Metabolic acidosis /alcoholic ketoacidosis. Secondary to DKA, alcohol use Mostly resolved SHEILA. Secondary to DKA. Resolved Slowly resolving with volume repletion Followed BMP Acute respiratory failure initially intubated in ED then extubated in ICU Possibly secondary to allergic reaction to Ativan as per ICU note and edematous glottis Thrombocytopenia, chronic. Likely related to some sort of liver abnormality due to alcohol intake Monitor Hypophosphatemia phos replacement Mental health Continue home medications DVT prophylaxis with heparin attending Dr. Kramer Full code DiSPO PT eval Patient requires continued hospitalization due to For treatment of DKA, close electrolyte monitoring, SHEILA requiring IV fluids Quality Stroke Does the patient have a stroke diagnosis?: No VTE Prior VTE?: No VTE Risk Level:: Medical - moderate - high VTE Device Contraindication: N/A - Device Ordered VTE Drug Contraindication: N/A - Med Ordered
[2022-01-31] MEDS: levoFLOXacin/D5W 500 MG/100 ML PIGGYBACK 100 MG IV (10:22)
[2022-01-31] MEDS: ondansetron HCL 4 MG/2 ML VIAL IVPUSH (10:29)
[2022-01-31 11:56] LABS: Glucose, Whole Blood 89 mg/dL (60-115)
[2022-01-31 12:00] VITALS: BP 160/97; PULSE 91; RESP 18; TEMP 36.7; O2SAT 97
[2022-01-31] MEDS: Heparin Sodium,Porcine 5,000 UNIT/ML VIAL 5000 UNIT SUBCUT ×2 (13:33→23:30)
[2022-01-31 15:10] VITALS: BP 135/88; PULSE 87; RESP 18; TEMP 36.7; O2SAT 99
[2022-01-31 15:35] LABS: Glucose, Whole Blood 137 mg/dL (60-115)
--- NOTE | 2022-01-31 16:20 | MHC.CM.PN ---
nurse heel caser ntoe electronic medical record reviewed and cSE DISCUSSED ON MULTIPLE DISCIPLINARY ROUNDS, BY THE HOSPITLAISTPATIENT WAS ADMITTED WITH PER DPOCUMENTATION DKA PER HOSPITLAIST THIS HAS RESOLVED, CULTURES 1 OUT 0F 2 BACTEREMIA ON LEVAQUIN FOLLOWING FINAL CX RESULTS AND ID CONSULT CALLED ,l PATIENT TO HAVE P,T, EVALUATION DISCHARGE PLAN LIVES ALONE, INITIALLY HOME NO SERVICES COVID VACINATED X2 MODERNA X2 HAS DIABETIC EQUIPEMENT AT HOME HCP COMPLETED ON THIS ADMISSION , TRANSPORTATION FAMILY
[2022-01-31] MEDS: Acetaminophen 325 MG TABLET 975 MG PO (17:17)
[2022-01-31 19:24] VITALS: BP 163/90; PULSE 76; RESP 18; TEMP 36.7; O2SAT 98
[2022-01-31 19:35] LABS: Glucose, Whole Blood 246 mg/dL (60-115)
[2022-01-31] MEDS: QUEtiapine Fumarate 400 MG TABLET PO (20:37)
[2022-01-31] MEDS: traZODone HCL 100 MG TABLET 200 MG PO (20:37)
[2022-01-31] MEDS: Melatonin 3 MG TABLET 6 MG PO (20:37)
[2022-01-31] MEDS: Insulin Glargine,Hum.rec.anlog 100 UNIT/ML 10 ML VIAL 50 UNIT SUBCUT (20:38)
[2022-01-31 23:35] VITALS: BP 100/55; PULSE 92; RESP 17; TEMP 36.4; O2SAT 95
[2022-02-01 04:00] VITALS: BP 142/69; PULSE 81; RESP 17; TEMP 36.3; O2SAT 99
[2022-02-01] MEDS: Omeprazole 20 MG CAPSULE.DR PO ×2 (05:15→16:55)
[2022-02-01 05:21] VITALS: BMI 30.2
[2022-02-01 07:27] VITALS: BP 148/102; PULSE 91; RESP 16; TEMP 36.1; O2SAT 98
[2022-02-01] MEDS: cloNIDine HCL 0.2 MG TABLET PO ×2 (07:43→20:32)
[2022-02-01] MEDS: PHENobarbitaL 15 MG TABLET PO ×2 (07:44→20:32)
[2022-02-01] MEDS: lamoTRIgine 100 MG TABLET 200 MG PO ×2 (07:44→20:32)
[2022-02-01 08:02] LABS: Glucose, Whole Blood 76 mg/dL (60-115)
[2022-02-01] MEDS: levoFLOXacin/D5W 500 MG/100 ML PIGGYBACK 100 MG IV (10:07)
[2022-02-01 11:21] LABS: Glucose, Whole Blood 122 mg/dL (60-115)
--- NOTE | 2022-02-01 11:27 | HO.PM.IMPN ---
Subjective Subjective Date of Service: 02/01/22 Review of Systems Follow-up, ICU transfer, DKA appetite better Nausea subsided Denies chest pain, shortness of breath Physical Exam Vital Signs: Vital Signs: Last Vital Signs Temp 97.0 F 02/01/22 07:27 Pulse 91 02/01/22 07:27 Resp 16 02/01/22 07:27 BP 148/102 H 02/01/22 07:27 Pulse Ox 98 02/01/22 07:27 O2 Del Method 02/01/22 07:27 O2 Flow Rate 2 01/29/22 06:00 FiO2 30 01/28/22 15:00 Oxygen Flow Rate 2 01/27/22 19:29 BMI result Body Mass Index 30.2 Appearing in no acute distress lung sounds are clear to auscultation heart regular rate rhythm, clear S1, S2 positive bowel sounds, abdomen is soft, nontender neuro patient is alert x3, no focal deficits Objective Data Active Medications Acetaminophen (Acetaminophen 325 Mg Tablet) 975 mg PO Q8H PRN PRN Reason: Headache Last Admin: 01/31/22 17:17 Dose: 975 mg Documented By: DEONDRE Clonidine HCl (Clonidine Hcl 0.2 Mg Tablet) 0.2 mg PO BID [facility]; Protocol Last Admin: 02/01/22 07:43 Dose: 0.2 mg Documented By: DEONDRE Dextrose (Dextrose 50 % 25 Gm/50 Ml Syringe) 25 gm IVPUSH Q15M PRN; Protocol PRN Reason: per Hypoglycemia Standing Ord. Last Admin: 01/29/22 11:40 Dose: 25 gm Documented By: ERNA Glucose (Glucose Gel 15 Gm Gel..Gram.) 15 gm PO Q15M PRN; Protocol PRN Reason: per Hypoglycemia Standing Ord. Heparin Sodium (Porcine) (Heparin Sodium,Porcine 5,000 Unit/Ml Vial) 5,000 unit SUBCUT Q12H [facility] Last Admin: 01/31/22 23:30 Dose: 5,000 unit Documented By: CURTIS Levofloxacin (Levaquin) 500 mg in 100 mls @ 100 mls/hr IV Q24H [facility] Last Admin: 02/01/22 10:07 Dose: 100 mls/hr Documented By: DEONDRE Insulin Glargine (Insulin Glargine,Hum.Rec.Anlog 100 Unit/Ml 10 Ml Vial) 50 unit SUBCUT BEDTIME [facility] Last Admin: 01/31/22 20:38 Dose: 50 unit Documented By: CURTIS Insulin Human Lispro (Insulin Lispro 100 Unit/Ml 3 Ml Vial) 0 unit SUBCUT QIDACHS [facility]; Protocol Last Admin: 02/01/22 07:44 Dose: Not Given Documented By: DEONDRE Non-Admin Reason: No Insulin Coverage Lamotrigine (Lamotrigine 100 Mg Tablet) 200 mg PO BID [facility] Last Admin: 02/01/22 07:44 Dose: 200 mg Documented By: DEONDRE Melatonin (Melatonin 3 Mg Tablet) 6 mg PO BEDTIME PRN PRN Reason: insomnia Last Admin: 01/31/22 20:37 Dose: 6 mg Documented By: CURTIS Omeprazole (Omeprazole 20 Mg Capsule.Dr) 20 mg PO BID@0630,1630 [facility] Last Admin: 02/01/22 05:15 Dose: 20 mg Documented By: CURTIS Ondansetron HCl (Ondansetron Hcl 4 Mg/2 Ml Vial) 4 mg IVPUSH Q8H PRN PRN Reason: Nausea Last Admin: 01/31/22 10:29 Dose: 4 mg Documented By: DEONDRE Pharmacy Consult (Consult Rx Etoh Phenob Po Only) 1 each MISCELLANE ONCE PRN; Protocol PRN Reason: Consult order Phenobarbital (Phenobarbital 15 Mg Tablet) 15 mg PO BID [facility] Stop: 02/02/22 21:01 Last Admin: 02/01/22 07:44 Dose: 15 mg Documented By: DEONDRE Phenobarbital (Phenobarbital 15 Mg Tablet) 15 mg PO DAILY [facility] Stop: 02/04/22 09:01 Quetiapine Fumarate (Quetiapine Fumarate 400 Mg Tablet) 400 mg PO BEDTIME [facility] Last Admin: 01/31/22 20:37 Dose: 400 mg Documented By: CURTIS Trazodone HCl (Trazodone Hcl 100 Mg Tablet) 200 mg PO BEDTIME [facility] Last Admin: 01/31/22 20:37 Dose: 200 mg Documented By: CURTIS Labs CBC & Chem 7: 01/29/22 05:15 01/31/22 06:10 Labs: Laboratory Results - last 24 hr 01/31/22 01/31/22 01/31/22 11:29 15:12 19:26 POC Glucose 89 137 H 246 H 02/01/22 02/01/22 07:15 11:13 POC Glucose 76 122 H Microbiology Microbiology Results: Microbiology 01/27/22 23:08 Blood Culture - Preliminary Blood - Venous Prelim: GPR Gram Stain only 01/27/22 22:53 Blood Culture - Preliminary Blood - Venous Prelim: GPR Gram Stain only Assessment and Plan (1) DKA (diabetic ketoacidosis): Status: Acute Plan 41-year-old man admitted to the ICU initially with DKA, acute respiratory failure. He was being treated for this in the ER and he went into respiratory failure and ended up intubated, according to the notes the patient's glottis had been very swollen. He was subsequently transferred to the ICU and treated for DKA with IV fluids, insulin drip and close monitoring of chemistry. He was then extubated without difficulty on room air. He was then transferred to medical floor GPR bacteremia 2/ continue Levaquin (PCN allergy) Follow final cx ID consult pending DKA. Resolved Treated with insulin drip, IV fluids in the ICU better appetite monitor BMP closely Metabolic acidosis /alcoholic ketoacidosis. Secondary to DKA, alcohol use resolved SHEILA. Secondary to DKA. Resolved Slowly resolving with volume repletion Followed BMP Acute respiratory failure initially intubated in ED then extubated in ICU Possibly secondary to allergic reaction to Ativan as per ICU note and edematous glottis Thrombocytopenia, chronic. Likely related to some sort of liver abnormality due to alcohol intake Monitor Hypophosphatemia phos replacement Mental health Continue home medications DVT prophylaxis with heparin attending Dr. Kramer Full code DiSPO home when medically stable Patient requires continued hospitalization for pending blood culture results Quality Stroke Does the patient have a stroke diagnosis?: No VTE Prior VTE?: No VTE Risk Level:: Medical - moderate - high VTE Device Contraindication: N/A - Device Ordered VTE Drug Contraindication: N/A - Med Ordered
[2022-02-01 11:36] VITALS: BP 163/103; PULSE 84; RESP 16; TEMP 36.5; O2SAT 99
[2022-02-01] MEDS: Heparin Sodium,Porcine 5,000 UNIT/ML VIAL 5000 UNIT SUBCUT (12:37)
[2022-02-01 15:34] LABS: Glucose, Whole Blood 172 mg/dL (60-115)
[2022-02-01] MEDS: Insulin Lispro 100 UNIT/ML 3 ML VIAL SUBCUT ×2 (16:55→20:31)
[2022-02-01 19:24] VITALS: BP 141/100; PULSE 100; RESP 18; TEMP 36.7; O2SAT 100
[2022-02-01 19:35] LABS: Glucose, Whole Blood 272 mg/dL (60-115)
[2022-02-01] MEDS: Insulin Glargine,Hum.rec.anlog 100 UNIT/ML 10 ML VIAL 50 UNIT SUBCUT (20:31)
[2022-02-01] MEDS: traZODone HCL 100 MG TABLET 200 MG PO (20:32)
[2022-02-01] MEDS: QUEtiapine Fumarate 400 MG TABLET PO (20:32)
--- NOTE | 2022-02-01 21:43 | W.PM.IDCN ---
History of Present Illness Data of Consult Service Date: 02/01/22 Requesting physician: Patience Wen Primary Care Provider: Unknown Physician HPI Reason for consult: bacteremia He presents to hospital with 4/10 SSCP with nausea and vomiting. He has alcohol use disorder with prior pancreatitis. He has elevated glucose. Blood cultures gram negative rods x 2. 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 Mother Diabetes Family history: reviewed and not pertinent Surgical History Surgical History No pertinent past surgical history Social History Social History Alcohol intake: current Alcohol intake frequency: 0-2 drinks per day Patient Tobacco Use Status: Never used Tobacco Use of substances other than those prescribed or required for medical reasons: No Currently Displaying Signs/Symptoms of Drug Intoxication Withdrawal: No Advance Directives: No service: No Current occupational status: employed Meds Allergies Allergy/AdvReac Type Severity Reaction Status Date / Time meropenem [MEROPENEM] Allergy Unknown SWELLING Verified 01/28/22 07:18 penicillin G procaine Allergy Unknown itching Verified 10/25/21 11:00 Penicillins [PENICILLINS] Allergy Unknown SWELLING Verified 01/28/22 07:18 lorazepam [From Ativan] Allergy Anaphylaxis Verified 01/28/22 07:18 Active Medications: Current Medications Acetaminophen (Acetaminophen 325 Mg Tablet) 975 mg PO Q8H PRN PRN Reason: Headache Last Admin: 01/31/22 17:17 Dose: 975 mg Clonidine HCl (Clonidine Hcl 0.2 Mg Tablet) 0.2 mg PO BID [facility]; Protocol Last Admin: 02/01/22 20:32 Dose: 0.2 mg Dextrose (Dextrose 50 % 25 Gm/50 Ml Syringe) 25 gm IVPUSH Q15M PRN; Protocol PRN Reason: per Hypoglycemia Standing Ord. Last Admin: 01/29/22 11:40 Dose: 25 gm Glucose (Glucose Gel 15 Gm Gel..Gram.) 15 gm PO Q15M PRN; Protocol PRN Reason: per Hypoglycemia Standing Ord. Heparin Sodium (Porcine) (Heparin Sodium,Porcine 5,000 Unit/Ml Vial) 5,000 unit SUBCUT Q12H [facility] Last Admin: 02/01/22 12:37 Dose: 5,000 unit Levofloxacin (Levaquin) 500 mg in 100 mls @ 100 mls/hr IV Q24H [facility] Last Infusion: 02/01/22 11:52 Dose: Infused Insulin Glargine (Insulin Glargine,Hum.Rec.Anlog 100 Unit/Ml 10 Ml Vial) 50 unit SUBCUT BEDTIME [facility] Last Admin: 02/01/22 20:31 Dose: 50 unit Insulin Human Lispro (Insulin Lispro 100 Unit/Ml 3 Ml Vial) 0 unit SUBCUT QIDACHS [facility]; Protocol Last Admin: 02/01/22 20:31 Dose: 4 unit Lamotrigine (Lamotrigine 100 Mg Tablet) 200 mg PO BID [facility] Last Admin: 02/01/22 20:32 Dose: 200 mg Melatonin (Melatonin 3 Mg Tablet) 6 mg PO BEDTIME PRN PRN Reason: insomnia Last Admin: 01/31/22 20:37 Dose: 6 mg Omeprazole (Omeprazole 20 Mg Capsule.Dr) 20 mg PO BID@0630,1630 [facility] Last Admin: 02/01/22 16:55 Dose: 20 mg Ondansetron HCl (Ondansetron Hcl 4 Mg/2 Ml Vial) 4 mg IVPUSH Q8H PRN PRN Reason: Nausea Last Admin: 01/31/22 10:29 Dose: 4 mg Pharmacy Consult (Consult Rx Etoh Phenob Po Only) 1 each MISCELLANE ONCE PRN; Protocol PRN Reason: Consult order Phenobarbital (Phenobarbital 15 Mg Tablet) 15 mg PO BID [facility] Stop: 02/02/22 21:01 Last Admin: 02/01/22 20:32 Dose: 15 mg Phenobarbital (Phenobarbital 15 Mg Tablet) 15 mg PO DAILY [facility] Stop: 02/04/22 09:01 Quetiapine Fumarate (Quetiapine Fumarate 400 Mg Tablet) 400 mg PO BEDTIME [facility] Last Admin: 02/01/22 20:32 Dose: 400 mg Trazodone HCl (Trazodone Hcl 100 Mg Tablet) 200 mg PO BEDTIME [facility] Last Admin: 02/01/22 20:32 Dose: 200 mg Home Medications Medication Instructions Recorded Confirmed Last Taken Type clonidine HCl 0.2 mg tablet 0.2 mg PO BID 11/11/20 01/28/22 Unknown History quetiapine 400 mg tablet (Seroquel) 400 mg PO BEDTIME 11/11/20 01/28/22 Unknown History trazodone 100 mg tablet 200 mg PO BEDTIME 11/11/20 01/28/22 Unknown History clonazepam 1 mg tablet 1 tab PO BID PRN Anxiety 01/28/22 01/28/22 Unknown History insulin glargine 100 unit/mL (3 50 unit subcut BEDTIME 01/28/22 01/28/22 Unknown History mL) subcutaneous pen (Lantus Solostar U-100 Insulin) lamotrigine 200 mg tablet 1 tab PO BID 01/28/22 01/28/22 Unknown History metformin 1,000 mg tablet 1 tab PO BID 01/28/22 01/28/22 Unknown History Physical Exam Vital Signs: Vital Signs: Last Vital Signs Temp 98.0 F 02/01/22 19:24 Pulse 100 02/01/22 19:24 Resp 18 02/01/22 19:24 BP 141/100 H 02/01/22 19:24 Pulse Ox 100 02/01/22 19:24 O2 Del Method 02/01/22 19:24 O2 Flow Rate 2 01/29/22 06:00 FiO2 30 01/28/22 15:00 Oxygen Flow Rate 2 01/27/22 19:29 BMI result Body Mass Index 30.2 Const: General: cooperative HEENT: Head: Yes normal to inspection Face and sinus: Yes normal facial exam Mouth: Normal oral and palatal mucosa present Teeth and gingiva: dentition normal Eyes: General: appearance normal, both eyes and all related structures Pupils: Equal, round and reactive pupils present Resp: Effort & Inspection: normal respiratory effort Cardio: Rate: regular rate Rhythm: regular rhythm GI: Palpation (GI): Soft to palpation and nontender : General: Yes no CVA tenderness Back/Spine/Pelvis: Back: no CVA tenderness Skin: General skin exam: no rashes or lesions noted Neuro: General: moves all extremities Cranial nerves: Yes Equal, round and reactive pupils present Extrem: General: Yes normal to inspection Psych: Appearance: grossly normal Results Labs CBC & Chem 7: 01/29/22 05:15 01/31/22 06:10 Microbiology Microbiology Results: Microbiology 01/27/22 23:08 Blood - Venous Blood Culture - Preliminary Prelim: GPR Gram Stain only 01/27/22 22:53 Blood - Venous Blood Culture - Preliminary Prelim: [facility] Gram Stain only Assessment and Plan (1) DKA (diabetic ketoacidosis): Qualifiers: Diabetes mellitus complication detail: without coma Diabetes mellitus type: type 1 Qualified Code(s): E10.10 - Type 1 diabetes mellitus with ketoacidosis without coma Status: Acute (2) Chest pain: Qualifiers: Chest pain type: unspecified Qualified Code(s): R07.9 - Chest pain, unspecified Status: Acute (3) Acute dehydration: Status: Acute (4) Bacteremia: Status: Acute He has reported gram positive rods in blood and there is possible listeria or hemophilus influenza. He has had prior pancreatitis and alcohol use disorder and is immunosuppressed. Plan Continue Levaquin. Await final blood culture results.
[2022-02-01 23:58] VITALS: BP 136/70; PULSE 75; RESP 17; TEMP 36.3; O2SAT 96
[2022-02-02 04:00] VITALS: BP 136/78; PULSE 85; RESP 14; TEMP 36.4; O2SAT 96
[2022-02-02] MEDS: Omeprazole 20 MG CAPSULE.DR PO ×2 (05:44→16:32)
[2022-02-02 05:58] VITALS: BMI 27.7
[2022-02-02 07:26] VITALS: BP 133/89; PULSE 97; RESP 18; TEMP 36.3; O2SAT 99
[2022-02-02 07:27] LABS: Glucose, Whole Blood 60 mg/dL (60-115)
[2022-02-02] MEDS: lamoTRIgine 100 MG TABLET 200 MG PO ×2 (07:57→21:00)
[2022-02-02] MEDS: cloNIDine HCL 0.2 MG TABLET PO ×2 (07:58→21:00)
[2022-02-02] MEDS: PHENobarbitaL 15 MG TABLET PO ×2 (07:58→20:59)
--- NOTE | 2022-02-02 08:28 | P.PNIM_ITS ---
Subjective Subjective Date of Service: 02/02/22 Review of Systems Follow-up, ICU transfer, DKA appetite better Nausea subsided Denies chest pain, shortness of breath Physical Exam Vital Signs: Vital Signs: Last Vital Signs Temp 97.4 F 02/02/22 07:26 Pulse 97 02/02/22 07:26 Resp 18 02/02/22 07:26 BP 133/89 02/02/22 07:26 Pulse Ox 99 02/02/22 07:26 O2 Del Method 02/02/22 07:26 O2 Flow Rate 2 01/29/22 06:00 FiO2 30 01/28/22 15:00 Oxygen Flow Rate 2 01/27/22 19:29 BMI result Body Mass Index 27.7 Appearing in no acute distress lung sounds are clear to auscultation heart regular rate rhythm, clear S1, S2 positive bowel sounds, abdomen is soft, nontender neuro patient is alert x3, no focal deficits Objective Data Active Medications Acetaminophen (Acetaminophen 325 Mg Tablet) 975 mg PO Q8H PRN PRN Reason: Headache Last Admin: 01/31/22 17:17 Dose: 975 mg Documented By: DEONDRE Clonidine HCl (Clonidine Hcl 0.2 Mg Tablet) 0.2 mg PO BID [facility]; Protocol Last Admin: 02/02/22 07:58 Dose: 0.2 mg Documented By: DEONDRE Dextrose (Dextrose 50 % 25 Gm/50 Ml Syringe) 25 gm IVPUSH Q15M PRN; Protocol PRN Reason: per Hypoglycemia Standing Ord. Last Admin: 01/29/22 11:40 Dose: 25 gm Documented By: ERNA Glucose (Glucose Gel 15 Gm Gel..Gram.) 15 gm PO Q15M PRN; Protocol PRN Reason: per Hypoglycemia Standing Ord. Heparin Sodium (Porcine) (Heparin Sodium,Porcine 5,000 Unit/Ml Vial) 5,000 unit SUBCUT Q12H [facility] Last Admin: 02/02/22 00:13 Dose: Not Given Documented By: FLO Non-Admin Reason: Patient Refused Levofloxacin (Levaquin) 500 mg in 100 mls @ 100 mls/hr IV Q24H [facility] Last Infusion: 02/01/22 11:52 Dose: 0 mls/hr Documented By: DEONDRE Insulin Glargine (Insulin Glargine,Hum.Rec.Anlog 100 Unit/Ml 10 Ml Vial) 50 unit SUBCUT BEDTIME [facility] Last Admin: 02/01/22 20:31 Dose: 50 unit Documented By: FLO Insulin Human Lispro (Insulin Lispro 100 Unit/Ml 3 Ml Vial) 0 unit SUBCUT QIDACHS [facility]; Protocol Last Admin: 02/02/22 08:00 Dose: Not Given Documented By: DEONDRE Non-Admin Reason: No Insulin Coverage Lamotrigine (Lamotrigine 100 Mg Tablet) 200 mg PO BID [facility] Last Admin: 02/02/22 07:57 Dose: 200 mg Documented By: DEONDRE Melatonin (Melatonin 3 Mg Tablet) 6 mg PO BEDTIME PRN PRN Reason: insomnia Last Admin: 01/31/22 20:37 Dose: 6 mg Documented By: CURTIS Omeprazole (Omeprazole 20 Mg Capsule.Dr) 20 mg PO BID@0630,1630 [facility] Last Admin: 02/02/22 05:44 Dose: 20 mg Documented By: FLO Ondansetron HCl (Ondansetron Hcl 4 Mg/2 Ml Vial) 4 mg IVPUSH Q8H PRN PRN Reason: Nausea Last Admin: 01/31/22 10:29 Dose: 4 mg Documented By: DEONDRE Pharmacy Consult (Consult Rx Etoh Phenob Po Only) 1 each MISCELLANE ONCE PRN; Protocol PRN Reason: Consult order Phenobarbital (Phenobarbital 15 Mg Tablet) 15 mg PO BID [facility] Stop: 02/02/22 21:01 Last Admin: 02/02/22 07:58 Dose: 15 mg Documented By: DEONDRE Phenobarbital (Phenobarbital 15 Mg Tablet) 15 mg PO DAILY [facility] Stop: 02/04/22 09:01 Quetiapine Fumarate (Quetiapine Fumarate 400 Mg Tablet) 400 mg PO BEDTIME [facility] Last Admin: 02/01/22 20:32 Dose: 400 mg Documented By: FLO Trazodone HCl (Trazodone Hcl 100 Mg Tablet) 200 mg PO BEDTIME [facility] Last Admin: 02/01/22 20:32 Dose: 200 mg Documented By: FLO Labs CBC & Chem 7: 01/29/22 05:15 01/31/22 06:10 Labs: Laboratory Results - last 24 hr 02/01/22 02/01/22 02/01/22 11:13 15:15 19:29 POC Glucose 122 H 172 H 272 H 02/02/22 07:22 POC Glucose 60 Microbiology Microbiology Results: Microbiology 01/27/22 23:08 Blood Culture - Preliminary Blood - Venous Prelim: GPR Gram Stain only 01/27/22 22:53 Blood Culture - Preliminary Blood - Venous Prelim: GPR Gram Stain only Assessment and Plan (1) DKA (diabetic ketoacidosis): Status: Acute Plan 41-year-old man admitted to the ICU initially with DKA, acute respiratory failure. He was being treated for this in the ER and he went into respiratory failure and ended up intubated, according to the notes the patient's glottis had been very swollen. He was subsequently transferred to the ICU and treated for DKA with IV fluids, insulin drip and close monitoring of chemistry. He was then extubated without difficulty on room air. He was then transferred to medical floor [facility] bacteremia 2/2 continue Levaquin (PCN allergy) Still waiting on final cx ID following DKA. Resolved Treated with insulin drip, IV fluids in the ICU better appetite monitor BMP closely Metabolic acidosis /alcoholic ketoacidosis. Secondary to DKA, alcohol use resolved SHEILA. Secondary to DKA. Resolved Slowly resolving with volume repletion Followed BMP Acute respiratory failure initially intubated in ED then extubated in ICU Possibly secondary to allergic reaction to Ativan as per ICU note and edematous glottis Thrombocytopenia, chronic. Likely related to some sort of liver abnormality due to alcohol intake Monitor Hypophosphatemia phos replacement Mental health Continue home medications DVT prophylaxis with heparin attending Dr. Kramer Full code DiSPO home when medically stable Patient requires continued hospitalization for pending blood culture results Quality Stroke Does the patient have a stroke diagnosis?: No VTE Prior VTE?: No VTE Risk Level:: Medical - moderate - high VTE Device Contraindication: N/A - Device Ordered VTE Drug Contraindication: N/A - Med Ordered
[2022-02-02] MEDS: levoFLOXacin/D5W 500 MG/100 ML PIGGYBACK 100 MG IV (10:28)
[2022-02-02 11:19] LABS: Glucose, Whole Blood 174 mg/dL (60-115)
[2022-02-02 12:00] VITALS: BP 140/96; PULSE 88; RESP 17; TEMP 37.1; O2SAT 97
[2022-02-02] MEDS: Insulin Lispro 100 UNIT/ML 3 ML VIAL SUBCUT ×3 (12:03→21:04)
[2022-02-02 15:26] VITALS: BP 158/98; PULSE 81; RESP 18; TEMP 37.1; O2SAT 98
[2022-02-02 15:55] LABS: Glucose, Whole Blood 201 mg/dL (60-115)
[2022-02-02 19:52] VITALS: BP 172/105; PULSE 84; RESP 18; TEMP 36.7; O2SAT 98
[2022-02-02 20:15] LABS: Glucose, Whole Blood 228 mg/dL (60-115)
[2022-02-02] MEDS: QUEtiapine Fumarate 400 MG TABLET PO (20:59)
[2022-02-02] MEDS: traZODone HCL 100 MG TABLET 200 MG PO (20:59)
[2022-02-02] MEDS: Insulin Glargine,Hum.rec.anlog 100 UNIT/ML 10 ML VIAL 50 UNIT SUBCUT (21:00)
[2022-02-02] MEDS: Melatonin 3 MG TABLET 6 MG PO (21:00)
[2022-02-03] VITALS (7 sets, daily range): BP systolic 110–161; BP diastolic 46–98; PULSE 79–115; RESP 16–20; TEMP 36.3–37.2; O2SAT 95–100
[2022-02-03] MEDS: Omeprazole 20 MG CAPSULE.DR PO ×2 (05:59→16:30)
[2022-02-03 07:28] LABS: Glucose, Whole Blood 85 mg/dL (60-115)
--- NOTE | 2022-02-03 09:17 | P.PNIM_ITS ---
Subjective Subjective Date of Service: 02/03/22 Interval History: f/u on dka and bacteremia interval history: feels fine, normla sugars, no fever Review of Systems no fever or chilss, no dizziness, Physical Exam Vital Signs: Vital Signs: Last Vital Signs Temp 97.9 F 02/03/22 07:24 Pulse 115 H 02/03/22 07:24 Resp 17 02/03/22 07:24 BP 136/91 H 02/03/22 07:24 Pulse Ox 99 02/03/22 07:24 O2 Del Method 02/03/22 07:24 O2 Flow Rate 2 01/29/22 06:00 FiO2 30 01/28/22 15:00 Oxygen Flow Rate 2 01/27/22 19:29 BMI result Body Mass Index 27.7 Const: Other: General: AO X 3, no acute distress Resp: CTA bilateral CVS: S1,S2,RRR GI: +BS, NT, no distention Skin: No rash Neuro: motor grossly intact Psych: appropriate affect Objective Data Active Medications Acetaminophen (Acetaminophen 325 Mg Tablet) 975 mg PO Q8H PRN PRN Reason: Headache Last Admin: 01/31/22 17:17 Dose: 975 mg Documented By: DEONDRE Clonidine HCl (Clonidine Hcl 0.2 Mg Tablet) 0.2 mg PO BID [facility]; Protocol Last Admin: 02/02/22 21:00 Dose: 0.2 mg Documented By: FLO Dextrose (Dextrose 50 % 25 Gm/50 Ml Syringe) 25 gm IVPUSH Q15M PRN; Protocol PRN Reason: per Hypoglycemia Standing Ord. Last Admin: 01/29/22 11:40 Dose: 25 gm Documented By: ERNA Glucose (Glucose Gel 15 Gm Gel..Gram.) 15 gm PO Q15M PRN; Protocol PRN Reason: per Hypoglycemia Standing Ord. Heparin Sodium (Porcine) (Heparin Sodium,Porcine 5,000 Unit/Ml Vial) 5,000 unit SUBCUT Q12H [facility] Last Admin: 02/03/22 00:02 Dose: Not Given Documented By: FLO Non-Admin Reason: Patient Refused Levofloxacin (Levaquin) 500 mg in 100 mls @ 100 mls/hr IV Q24H [facility] Last Infusion: 02/02/22 11:59 Dose: 0 mls/hr Documented By: DEONDRE Insulin Glargine (Insulin Glargine,Hum.Rec.Anlog 100 Unit/Ml 10 Ml Vial) 50 uni t SUBCUT BEDTIME [facility] Last Admin: 02/02/22 21:00 Dose: 50 unit Documented By: FLO Insulin Human Lispro (Insulin Lispro 100 Unit/Ml 3 Ml Vial) 0 unit SUBCUT QIDACHS [facility]; Protocol Last Admin: 02/03/22 07:23 Dose: Not Given Documented By: GLENDY Non-Admin Reason: No Insulin Coverage Lamotrigine (Lamotrigine 100 Mg Tablet) 200 mg PO BID [facility] Last Admin: 02/02/22 21:00 Dose: 200 mg Documented By: FLO Melatonin (Melatonin 3 Mg Tablet) 6 mg PO BEDTIME PRN PRN Reason: insomnia Last Admin: 02/02/22 21:00 Dose: 6 mg Documented By: FLO Omeprazole (Omeprazole 20 Mg Capsule.Dr) 20 mg PO BID@0630,1630 [facility] Last Admin: 02/03/22 05:59 Dose: 20 mg Documented By: FLO Ondansetron HCl (Ondansetron Hcl 4 Mg/2 Ml Vial) 4 mg IVPUSH Q8H PRN PRN Reason: Nausea Last Admin: 01/31/22 10:29 Dose: 4 mg Documented By: DEONDRE Pharmacy Consult (Consult Rx Etoh Phenob Po Only) 1 each MISCELLANE ONCE PRN; Protocol PRN Reason: Consult order Phenobarbital (Phenobarbital 15 Mg Tablet) 15 mg PO DAILY [facility] Stop: 02/04/22 09:01 Quetiapine Fumarate (Quetiapine Fumarate 400 Mg Tablet) 400 mg PO BEDTIME [facility] Last Admin: 02/02/22 20:59 Dose: 400 mg Documented By: FLO Trazodone HCl (Trazodone Hcl 100 Mg Tablet) 200 mg PO BEDTIME [facility] Last Admin: 02/02/22 20:59 Dose: 200 mg Documented By: FLO Labs CBC & Chem 7: 01/29/22 05:15 01/31/22 06:10 Labs: Laboratory Results - last 24 hr 02/02/22 02/02/22 02/02/22 11:15 15:41 19:58 POC Glucose 174 H 201 H 228 H 02/03/22 07:23 POC Glucose 85 Microbiology Microbiology Results: Microbiology 01/27/22 23:08 Blood Culture - Preliminary Blood - Venous Prelim: GPR Gram Stain only 01/27/22 22:53 Blood Culture - Preliminary Blood - Venous Prelim: GPR Gram Stain only Assessment and Plan (1) DKA (diabetic ketoacidosis): Status: Acute Plan 41-year-old man admitted to the ICU initially with DKA, acute respiratory failure. He was being treated for this in the ER and he went into respiratory failure and ended up intubated, according to the notes the patient's glottis had been very swollen. He was subsequently transferred to the ICU and treated for DKA with IV fluids, insulin drip and close monitoring of chemistry. He was then extubated without difficulty on room air. He was then transferred to medical floor and now has GPR bacteremia from 01/27 GPR bacteremia 09/07 , anaerobe, sensitivity pending ID recommend Levaquin (PCN allergy) DKA. Resolved, insulin for diabetes SHEILA. Resolved Acute respiratory failure initially intubated in ED then extubated in ICU Possibly secondary to allergic reaction to Ativan as per ICU note and edematous glottis Thrombocytopenia, chronic. Likely related to some sort of liver abnormality due to alcohol intake Monitor Hypophosphatemia phos replacement Mental health Continue home medications DVT prophylaxis with heparin attending Dr. Kramer Full code DiSPO home when medically stable Patient requires continued hospitalization for pending blood culture results, and ongoing IV antibiotics Quality Stroke Does the patient have a stroke diagnosis?: No VTE Prior VTE?: No VTE Risk Level:: Medical - moderate - high VTE Device Contraindication: N/A - Device Ordered VTE Drug Contraindication: N/A - Med Ordered
[2022-02-03] MEDS: PHENobarbitaL 15 MG TABLET PO (09:28)
[2022-02-03] MEDS: cloNIDine HCL 0.2 MG TABLET PO ×2 (09:28→21:06)
[2022-02-03] MEDS: levoFLOXacin/D5W 500 MG/100 ML PIGGYBACK 100 MG IV (09:29)
[2022-02-03] MEDS: lamoTRIgine 100 MG TABLET 200 MG PO ×2 (09:29→21:06)
[2022-02-03 11:33] LABS: Glucose, Whole Blood 202 mg/dL (60-115)
[2022-02-03] MEDS: Insulin Lispro 100 UNIT/ML 3 ML VIAL SUBCUT ×3 (11:55→21:08)
--- NOTE | 2022-02-03 14:49 | PM.EVENT ---
Event Note Date of Service: 02/03/22 Event Note: he has gram positive anerobes blood po flagyl 500 mg bid 10 d total probably translocation from bowel
[2022-02-03 16:06] LABS: Glucose, Whole Blood 184 mg/dL (60-115)
[2022-02-03] MEDS: metroNIDAZOLE 500 MG TABLET PO (16:30)
[2022-02-03 20:29] LABS: Glucose, Whole Blood 180 mg/dL (60-115)
[2022-02-03] MEDS: QUEtiapine Fumarate 400 MG TABLET PO (21:06)
[2022-02-03] MEDS: traZODone HCL 100 MG TABLET 200 MG PO (21:06)
[2022-02-03] MEDS: Melatonin 3 MG TABLET 6 MG PO (21:07)
[2022-02-03] MEDS: Insulin Glargine,Hum.rec.anlog 100 UNIT/ML 10 ML VIAL 50 UNIT SUBCUT (21:11)
[2022-02-04 03:54] VITALS: BP 129/57; PULSE 74; RESP 17; TEMP 36.3; O2SAT 97
[2022-02-04 06:00] VITALS: BMI 30.9
[2022-02-04] MEDS: Omeprazole 20 MG CAPSULE.DR PO (06:20)
[2022-02-04] MEDS: metroNIDAZOLE 500 MG TABLET PO (06:20)
[2022-02-04 07:30] LABS: Glucose, Whole Blood 66 mg/dL (60-115)
[2022-02-04 08:00] VITALS: BP 145/93; PULSE 110; RESP 18; TEMP 37.1; O2SAT 99
--- NOTE | 2022-02-04 08:10 | PM.DS ---
DS: Providers Provider Date of Service: 02/12/22 Date of admission: 01/27/22 23:29 Primary care physician: Beena Melo MD Consults: 01/31/22 12:47 Consult to Infectious Diseases Routine Consulting Provider: Mi Self Reason for consultation: GNR bacteremia Has provider been notified: Yes DS: Diagnosis Discharge Diagnosis (1) DKA (diabetic ketoacidosis): Status: Resolved DS: Summary Hospital Course Hospital Course: Chief Complaint: DKA; possible Toxic Ingestion, Severe Met Acidosis HPI:?41-year-old intubated patient with prior history of bipolar disorder, diabetic nephropathy, diabetes, and pancreatitis, alcoholism among others, had presented to the emergency room complaints of substernal chest discomfort which started all of a sudden while watching TV, associated with nausea, vomiting, shortness of breath and sweatiness, he has not felt well altogether and he had reported his blood sugars have been in the 200 despite of his normal treatment.? It is reported that the patient was transported via EMS where he was noted to have peaked T-waves therefore he received calcium gluconate. ? Is known the patient's last alcoholic drink was last night and he was seen about a month ago in this hospital for alcohol intoxication.? In the ER workup reveal a white count of 11.7, H&H of 15.4 and 49.1, platelets 125, sodium 138, potassium 4.7, chloride 90, carbon dioxide less than 5, BUN 10, creatinine 1.41, blood sugar 356.? Lactic acid 19.9, troponin less than 3.5.? SAT 83, ALT 42.? Lipase 22.? Blood alcohol level 77 ?D-dimer 263, INR 1.1. ?Patient was given IV fluids x 2L, started on an insulin drip. Apparently he did develop an allergic reaction to Ativan, about an hour after administration, the patient had complained of difficulty swallowing for which epinephrine, Benadryl, Pepcid and Solu-Medrol , but ultimately the patient needed to be intubated for airway protection as he was reported that the patient's glottis was edematous. ? Given the significant level of acidosis which is not matching and mild DKA, workup for the possibility of toxic ingestion was suggested by Dr. Yañez, patient's current calculated osmolar gap is 21.8, patient is on Fomepizole, poison Control has been contacted, patient will be transferred to the ICU for further management.? CT of the neck soft tissue, abdomen pelvis and full toxicology screening, pending. Hospital course: DKA--treated in ICU witth insulin and IVF and has resolved and will resume home insulin regimen Gram positive dmitri bacteremia? 2/2, anearobe, likely translocation from bowel. Initially was on Levaquin and ID is recommending Flagyl 500 bid x 10 days. Final sensitivity pending SHEILA. Pre renal and resolved with IVF Acute respiratory failure initially intubated in ED then extubated in ICU Possibly secondary to allergic reaction to Ativan as per ICU note and edematous glottis/angioedema..Fully resolved. ? Thrombocytopenia, chronic.? Likely related to some sort of liver abnormality due to alcohol intake Monitor Hypophosphatemia phos replacement Mental health Continue home medications Time Spent with Patient Time attestation: Total time spent providing and/or coordinating discharge services: Discharge coordination time: Greater than 30 minutes Quality: Safe Use of Opioids Does Pt have an Active Cancer Diagnosis on the Problem List?: No Quality: Stroke Does the patient have a stroke diagnosis?: No Physical Exam Vital Signs: Vital Signs: Last Vital Signs Temp 97.3 F 02/04/22 03:54 Pulse 74 02/04/22 03:54 Resp 17 02/04/22 03:54 BP 129/57 L 02/04/22 03:54 Pulse Ox 97 02/04/22 03:54 O2 Del Method 02/04/22 03:54 O2 Flow Rate 2 01/29/22 06:00 FiO2 30 01/28/22 15:00 Oxygen Flow Rate 2 01/27/22 19:29 BMI result Body Mass Index 30.9 DS: Data Data Completed and Pending Labs on day of discharge: Laboratory Results - last 24 hr 02/03/22 02/03/22 02/03/22 11:27 15:39 20:00 POC Glucose 202 H 184 H 180 H 02/04/22 07:16 POC Glucose 66 Preliminary micro results at discharge 01/27/22 23:08 Blood Culture - Preliminary Blood - Venous Prelim: GPR Gram Stain only 01/27/22 22:53 Blood Culture - Preliminary Blood - Venous Prelim: GPR Gram Stain only Discharge Plan Discharge Anticipated Discharge Date/Time: 02/04/22 08:08 Patient Disposition: Home, Self-Care Discharge Diagnosis: DKA, bacteremia Referrals: Beena Melo MD [Primary Care Provider] - 1 Week Discharge Medications: New metronidazole 500 mg Tablet 500 mg PO Q12H Qty: 20 0RF Continued (DME) FreeStyle Lite Strips Strip See Rx Instructions .Route Qty: 150 11RF Rx Instructions: Four times a day (DME) lancets [TRUEplus Lancets] 33 gauge misc See Rx Instructions .Route Qty: 200 11RF Rx Instructions: Four times a day insulin aspart U-100 [Novolog Flexpen U-100 Insulin] 100 unit/mL (3 mL) insulin pen 1 - 25 unit subcut QID Qty: 30 3RF lamotrigine 200 mg tablet 1 tab PO BID insulin glargine [Lantus Solostar U-100 Insulin] 100 unit/mL (3 mL) insulin pen 50 unit subcut BEDTIME metformin 1,000 mg tablet 1 tab PO BID quetiapine [Seroquel] 400 mg tablet 400 mg PO BEDTIME trazodone 100 mg tablet 200 mg PO BEDTIME clonidine HCl 0.2 mg tablet 0.2 mg PO BID No Action (DME) pen needle, diabetic [BD July 2nd Gen Pen Needle] 32 gauge x 5/32 needle See Rx Instructions .MEDSUPPLY Qty: 150 4RF Rx Instructions: 5 times a day citalopram 40 mg tablet 40 mg PO DAILY thiamine HCl (vitamin B1) 100 mg tablet 100 mg PO DAILY folic acid 1 mg tablet 1 mg PO DAILY magnesium oxide 400 mg (241.3 mg magnesium) tablet 400 mg PO BID Discharge Orders: Discharge Order (Routine); Ordered 02/04/22 Ordered By: Elio Mims Diet: Diabetic diet Activity on Discharge: As tolerated Stand Alone Forms: Patient Portal Discharge page Care Plan Goals: Full recovery from DKA, bacteremia and to preven rehospitalization Health Concerns: DKA, diabetes, and bacteremia Plan of Treatment: Resume your home insulin, Take Flagyl as recommended and follow up with your Doctor in a week Assessment: as above Discharge Date/Time: 02/04/22 11:02
[2022-02-04] MEDS: cloNIDine HCL 0.2 MG TABLET PO (09:44)
[2022-02-04] MEDS: PHENobarbitaL 15 MG TABLET PO (09:45)
[2022-02-04] MEDS: lamoTRIgine 100 MG TABLET 200 MG PO (09:45)
--- NOTE | 2022-02-04 10:34 | MHC.CM.PN ---
PT MEDICALLY CLEARED FOR D/C HOME NO SERVICES, PER NSG PT LIVES NEARBY AND WILL WALK HOME.
== END 2022-02-04 11:02 | disposition home or self-care (01) | DRG 637 ==
LOC: HO.ED 21:09 → HO.EDOVER 23:35 → HO.ICU 01-28 00:04 → HO.S3 01-29 11:02
PROVIDERS: Anesthesiology; Internal Medicine; Nurse Practitioner Acute Care; Admitting Provider Physician Assistant Medical; Emergency Provider Emergency Medicine; PCP Internal Medicine; Visit Provider Internal Medicine
DX: E10.10 Type 1 diabetes mellitus with ketoacidosis without coma (principal); J96.01 Acute respiratory failure with hypoxia; N17.9 Acute kidney failure, unspecified; D84.9 Immunodeficiency, unspecified; R78.81 Bacteremia; Y90.3 Blood alcohol level of 60-79 mg/100 ml; F31.9 Bipolar disorder, unspecified; D69.59 Other secondary thrombocytopenia; E86.0 Dehydration; R22.9 Localized swelling, mass and lump, unspecified; T42.4X5A Adverse effect of benzodiazepines, initial encounter; E83.39 Other disorders of phosphorus metabolism; E83.51 Hypocalcemia; Z20.822 Contact with and (suspected) exposure to COVID-19; Z88.0 Allergy status to penicillin; Z79.4 Long term (current) use of insulin; Z79.84 Long term (current) use of oral hypoglycemic drugs; Z79.899 Other long term (current) drug therapy
CPT/HCPCS: 36415; 36600; 70450; 70490; 71045; 74176; 80048; 80053; 80076; 80143; 80179; 80307; 80320; 81001; 82009; 82077; 82693; 82803; 82947; 83605; 83690; 83735; 83930; 83935; 84100; 84300; 84484; 84550; 85025; 85027; 85379; 85610; 86140; 87040; 87076; 87205; 87635; 93005; 94002; 94003; 94640; 94644; 96361; 96365; 96372; 96375; 97162; 99285; C1758; J0171; J0610; J1200; J1451; J1956; J2060; J2250; J2405; J2550; J2560; J2930; J3010; J3411; J3475

== ENCOUNTER → 2022-02-08 09:29 | Outpatient (BNVA) | payer OTHER, SELFPAY | PROVIDERS: PCP Internal Medicine; Visit Provider Internal Medicine Endocrinology, Diabetes & Metabolism | DX: E13.40 Other specified diabetes mellitus with diabetic neuropathy, unspecified (principal); S36.209S Unspecified injury of unspecified part of pancreas, sequela; Z79.4 Long term (current) use of insulin | CPT/HCPCS: 82947; 99212 ==

== ENCOUNTER 2022-03-14 13:12 | Inpatient (IN) | payer OTHER, SELFPAY ==
--- NOTE | ~2022-03-14 | CT_ITS ---
EXAMINATION: CT ABDOMEN AND PELVIS WITHOUT CONTRAST CLINICAL INFORMATION: Severe diffuse abdominal pain worse in the right and left upper quadrants COMPARISON: CT abdomen pelvis 01/27/2022 TECHNIQUE: Multidetector volumetric imaging was performed from the superior aspect of the liver through the pubic symphysis. Sagittal and coronal reformatted images were obtained on the technologist's workstation. This CT examination was performed using dose optimization techniques as appropriate, variously including the following: *Automated exposure control *Adjustment of mA and/or kV according to patient size (this includes techniques or standardized protocols for targeted exams where dose is matched to indication/reason for exam; i.e. extremities or head) *Use of iterative reconstruction technique DLP: 553 mGy-cm FINDINGS: LUNG BASES: The visualized lung bases are unremarkable. LIVER, GALLBLADDER, AND BILIARY TREE: Mild hepatic hypoattenuation, significantly improved since prior suggesting mild steatosis. No appreciable liver lesion. No biliary ductal dilation. The gallbladder is unremarkable with no evidence of radiopaque gallstones, gallbladder wall thickening, or obvious pericholecystic inflammatory changes. PANCREAS: Coarse pancreatic calcifications compatible with sequela of chronic pancreatitis. Pancreatic lesion or appreciable peripancreatic inflammatory change. SPLEEN: Unremarkable. ADRENAL GLANDS: Unremarkable. KIDNEYS AND URETERS: Punctate 1-2 mm nonobstructing right upper pole renal calculus, unchanged. No renal lesions. No hydronephrosis. No perinephric collections. BLADDER: Prominently distended. No bladder wall thickening. GASTROINTESTINAL TRACT: Portions of the ascending, transverse, descending and sigmoid colon appear thick walled though are not the distended. No surrounding inflammatory fat stranding to suggest specific evidence of colitis. No dilated bowel loops or definite bowel wall thickening. Appendix is unremarkable. No ascites or free air. ABDOMINAL WALL: No significant hernia is appreciated. LYMPH NODES: No lymphadenopathy. VASCULAR: Mild vascular calcifications. Normal caliber abdominal aorta. Retroaortic left renal vein. PELVIC VISCERA: Normal size prostate gland. Calcifications of the vas deferens, finding that can be seen in the setting of diabetes. OSSEOUS STRUCTURES: No acute fracture or suspicious osseous lesion. Mild multilevel degenerative disc disease. Geographic areas of peripheral sclerosis in the femoral heads bilaterally characteristic of avascular necrosis. No articular surface collapse or fragmentation. CT/CT abdomen pelvis wo con IMPRESSION: 1. No acute intra-abdominal process identified to explain the patient's diffuse abdominal pain. 2. Pancreatic parenchymal calcifications compatible sequela of chronic pancreatitis. No CT findings of acute pancreatitis. 3. Mild hepatic steatosis, significantly improved since comparison. 4. Thick-walled appearance of portions of the colon favored artifactual due to nondistention of the colon. No pericolonic inflammatory changes to suggest specific evidence of acute colitis. 5. 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 No articular surface collapse or fragmentation.
[2022-03-14 13:22] VITALS: BP 135/90; PULSE 90
[2022-03-14 14:18] VITALS: BP 149/100; PULSE 104; RESP 18; TEMP 36.6; O2SAT 99; BMI 26.6
[2022-03-14] MEDS: Ondansetron ODT 4 MG TAB.RAPDIS TRANSLINGU (14:24)
[2022-03-14 14:40] LABS: Glucose, Whole Blood 328 mg/dL (60-115)
[2022-03-14 16:07] LABS: MANUAL DIFF FLAG NO
[2022-03-14 16:08] LABS: Venous Blood Gas Refer to POC result
[2022-03-14 16:08] LABS: VBG Base Excess 4.2 mmol/L; VBG HCO3 29 mmol/L (22-26); VBG pCO2 44 mmHg; VBG pH 7.42 (7.32-7.43); VBG pO2 44 mmHg
[2022-03-14 16:10] LABS: Basophils Percent Auto 0.1 % (0-2); Hematocrit 43.9 % (42.0-52.0); Hemoglobin 15.5 g/dl (14.0-18.0); Imm Gran Abs Auto 0.07 X10*3/uL (0.00-0.03); Imm Gran Pct Auto 0.9 % (0.0-0.4); Lymphocytes Absolute Auto 0.9 X10*3/uL (1.2-4.9); Lymphocytes Percent Auto 12.3 % (20-40); Mean Corpuscular HGB Conc 35.3 g/dl (31.0-36.0); Mean Corpuscular Hemoglobin 30.2 pg (27.0-33.0); Mean Corpuscular Volume 85.6 fL (80.0-98.0); Mean Platelet Volume 9.4 fL (9.4-12.4); Monocytes Absolute Auto 0.9 X10*3/uL (0.1-1.2); Monocytes Percent Auto 11.8 % (2-11); Neutrophils Absolute Auto 5.6 x10*3/uL (2.0-8.3); Neutrophils Percent Auto 74.9 % (45-73); Platelet Count 245 X10*3/uL (160-400); Red Blood Count 5.13 X10*6/uL (4.60-5.80); Red Cell Distribution Width 12.9 % (11.0-16.0); White Blood Count 7.5 X10*3/uL (4.8-10.8)
[2022-03-14 16:20] LABS: Lactic Acid 4.6 mmol/L (0.5-2.0)
--- NOTE | 2022-03-14 16:21 | ED.ABDPAIN ---
HPI - Abdominal Pain General Chief Complaint: Nausea/Vomiting/Diarrhea Stated Complaint: ABDO PAIN Time Seen by Provider: 03/14/22 15:35 Source: patient Mode of arrival: ambulatory Limitations: no limitations History of Present Illness HPI narrative: 41-year-old male history of bipolar disorder, diabetes with insulin use presenting to the ED with diffuse abdominal pain, nausea, vomiting x1 day. Patient states that he woke up yesterday morning with diffuse abdominal pain, no radiation. He has felt nauseous and has vomited multiple times, states that he cannot keep anything down. Patient tells me that the night before symptoms started he drink 2 OJ and vodka drinks. Patient is insulin dependent and has missed his insulin all day today. Denies any illicit drug use, tobacco use. Denies any chest pain, shortness of breath, constipation, diarrhea. MD elicited complaint: abdominal pain Onset (ago): day(s) (1) Pain Consistency: constant Location: diffuse Severity: severe Related Data Home Medications Medication Instructions Recorded Confirmed clonidine HCl 0.2 mg tablet 0.2 mg PO BID 11/11/20 01/28/22 quetiapine 400 mg tablet (Seroquel) 400 mg PO BEDTIME 11/11/20 01/28/22 trazodone 100 mg tablet 200 mg PO BEDTIME 11/11/20 01/28/22 insulin glargine 100 unit/mL (3 50 unit subcut BEDTIME 01/28/22 01/28/22 mL) subcutaneous pen (Lantus Solostar U-100 Insulin) lamotrigine 200 mg tablet 1 tab PO BID 01/28/22 01/28/22 metformin 1,000 mg tablet 1 tab PO BID 01/28/22 01/28/22 citalopram 40 mg tablet 40 mg PO DAILY 02/08/22 folic acid 1 mg tablet 1 mg PO DAILY 02/08/22 magnesium oxide 400 mg (241.3 mg 400 mg PO BID 02/08/22 magnesium) tablet thiamine HCl (vitamin B1) 100 mg 100 mg PO DAILY 02/08/22 tablet Previous Rx's Medication Instructions Recorded blood sugar diagnostic (FreeStyle #150 ea 03/08/21 Lite Strips) lancets 33 gauge (TRUEplus Lancets) #200 ea 03/08/21 insulin aspart U-100 100 unit/mL 1 - 25 unit (0.01 - 0.25 mL) 10/31/21 (3 mL) subcutaneous pen (Novolog subcut QID #30 mL Flexpen U-100 Insulin aspart) metronidazole 500 mg tablet 500 mg PO Q12H #20 tabs 02/04/22 pen needle, diabetic 32 gauge x #150 ea 02/07/22 (BD July 2nd Gen Pen Needle) Allergies Allergy/AdvReac Type Severity Reaction Status Date / Time clonazepam Allergy Unknown Unknown Verified 02/08/22 09:46 meropenem [MEROPENEM] Allergy Unknown SWELLING Verified 02/08/22 09:46 penicillin G procaine Allergy Unknown itching Verified 02/08/22 09:46 Penicillins [PENICILLINS] Allergy Unknown SWELLING Verified 02/08/22 09:46 lorazepam [From Ativan] Allergy Anaphylaxis Verified 02/08/22 09:46 Review of Systems Review of Systems Constitutional : No Weight loss, No Fever, No Chills, No Fatigue, No Malaise ENT/Mouth : No sore throat, No Rhinorrhea Eyes: No Eye Pain, No Swelling, No Redness Cardiovascular : No Chest Pain, No SOB, No Dyspnea on Exertion, No Orthopnea, No Edema, No Palpitations Respiratory : No Cough, No Sputum, No Wheezing Gastrointestinal : + Nausea, + Vomiting, No Diarrhea, No Constipation, + abdominal Pain, No Hematochezia, No Melena Genitourinary : No Dysuria, No Urinary Frequency, No Hematuria, Musculoskeletal : No joint pain, No Myalgias, No Joint Swelling Skin : No Skin Lesions, No rash Neuro : No Weakness, No Numbness, No Dizziness, No Headache All other systems reviewed and are negative Yes all other systems are reviewed and are negative [facility] Past Medical History Attestation statement: The following information was validated with the patient. 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 Mother Diabetes Social History Social History Alcohol intake: former Patient Tobacco Use Status: Never used Tobacco Use of substances other than those prescribed or required for medical reasons: No Advance Directives: No Advance Directives Information Provided: Yes service: No Current occupational status: employed Physical Exam ED Vital Signs: Vital Signs - 24 hr 03/14/22 14:18 03/14/22 16:46 Temperature 97.8 F Pulse Rate 104 H 80 Respiratory Rate 18 16 Blood Pressure 149/100 H 139/88 Pulse Oximetry 99 100 Oxygen Delivery Method Room Air Room Air BMI result Body Mass Index 26.6 VSS Appearance: Alert.? Oriented X3.? No acute distress.? Patient appears uncomfortable on the stretcher, tremulous, diaphoretic. Head: Normocephalic, atraumatic, no step-offs or deformities Eyes: Pupils equal, round and reactive to light.? Neck: Normal inspection.? Neck supple.? CVS: Normal heart rate and rhythm.? Pulses normal.? Respiratory: No respiratory distress.? Breath sounds normal.? Abdomen: Soft and diffusely tender to palpation. Skin: Skin warm and dry.? Normal skin color.? Normal skin turgor.? Extremities: No lower extremity edema.? No calf ttp. 5/5 strength to bilateral upper and lower extremities Neuro: Oriented X 3.? No motor deficit.? No sensory deficit. Course Reevaluation(s) Reevaluation #1: CBC appears to be around patient's baseline. No leukocytosis or anemia. Chemistry with a sodium of 129, patient receiving hydration at this time. Patient also has an anion gap of 25 likey secondary to lactic acidosis. Patient's lactic acid is 4.6. Random glucose 349, patient's VBG with a slightly elevated bicarb of 29, patient's acetone is negative, given that patient has a grossly normal VBG, and a negative acetone with a sugar of 3 49 I do not suspect diabetic ketoacidosis or alcoholic ketoacidosis. Urine pending. Patient will receive a 30 cc/kilo bolus, will also cover with Levaquin as patient has sensitivity to penicillin and cannot give Zosyn or ceftriaxone. Will obtain a urine from patient. At this time infection suspected. Delay in obtaining patient's lab secondary to patient being a tough stick. Fluids running however interruptions due to patient losing multiple IV lines. Time: 17:03 Reevaluation #2: I started an ultrasound-guided line on patient , he now has a 20 gauge in his right AC. Tolerated procedure well. I had a long conversation with patient, he now is opening up to me that he used to drink heavily however stopped for a while he tells me that now he did drink heavily on Sunday, at this time patient is tachycardic, hypertensive, diaphoretic I suspect alcohol withdrawal. CIWA 24 Phenobarbital will be started. Alcohol withdrawal would also explain why patient's anion gap is elevated and why his lactic acids have been elevated however, after hydration lactic acid improving. At this time patient will be admitted to the hospitalist team for further evaluation and treatment. Time: 21:31 MDM - Abdominal Pain MDM Narrative Medical decision making narrative: 1630 41-year-old male history of bipolar disorder, diabetes with insulin presenting today with diffuse abdominal pain, nausea, vomiting x1 day. Admits to drinking on Sunday night. Has missed his insulin today. As a history of DKA. Physical exam significant for diffuse abdominal tenderness. Patient appears uncomfortable. Concerns for DKA or alcoholic diabetic ketoacidosis. Alcohol w/ drawl Plan at this time is to order basic labs, UA, VBG, and acetone. Medical Records Attestation: I reviewed the patient's medical records. Lab Data Attestation: I reviewed the patient's lab results. Result diagrams: 03/14/22 15:56 03/14/22 19:18 Labs: Lab Results 03/14/22 03/14/22 03/14/22 Range/Units 14:25 15:56 15:56 WBC 7.5 (4.8-10.8) X10*3/uL RBC 5.13 D (4.60-5.80) X10*6/uL Hgb 15.5 D (14.0-18.0) g/dl Hct 43.9 D (42.0-52.0) % MCV 85.6 (80.0-98.0) fL MCH 30.2 (27.0-33.0) pg MCHC 35.3 (31.0-36.0) g/dl RDW 12.9 (11.0-16.0) % Plt Count 245 D (160-400) X10*3/uL MPV 9.4 (9.4-12.4) fL Immature Gran % (Auto) 0.9 H (0.0-0.4) % Neut % (Auto) 74.9 H (45-73) % Lymph % (Auto) 12.3 L (20-40) % [place] % (Auto) 11.8 H (2-11) % Eos % (Auto) 0.0 (0-4) % Baso % (Auto) 0.1 (0-2) % Lymph # (Auto) 0.9 L (1.2-4.9) X10*3/uL [place] # (Auto) 0.9 (0.1-1.2) X10*3/uL Eos # (Auto) 0.0 (0.0-0.4) X10*3/uL Baso # (Auto) 0.0 (0.0-0.2) X10*3/uL Abs Immat Gran (auto) 0.07 H (0.00-0.03) X10*3/uL Absolute Neuts (auto) 5.6 (2.0-8.3) x10*3/uL Absolute Nucleated RBC 0.000 (0.0-0.012) X10*3/uL Nucleated RBC % (auto) 0.0 (0.0-0.2) /100WBC Hold Purple Top VBG pH (7.32-7.43) VBG pCO2 mmHg VBG pO2 mmHg VBG HCO3 (22-26) mmol/L VBG O2 Saturation % VBG Base Excess mmol/L Sodium 129 L (135-145) mmol/L Potassium 4.1 D (3.3-5.1) mmol/L Chloride 81 L (96-108) mmol/L Carbon Dioxide 27 (22-29) mmol/L Anion Gap 25 H (12-20) BUN 9 (9-16) mg/dL Creatinine 0.87 (0.5-1.4) mg/dL Estim Creat Clear Calc 103.4 Estimated GFR > 60 POC Glucose 328 H (60-115) mg/dL Random Glucose 349 H D (60-115) mg/dL Lactic Acid (0.5-2.0) mmol/L Lactic Acid F/U @ 2Hr (0.5-2.0) mmol/L Calcium 8.8 D (8.4-10.2) mg/dL Magnesium 1.3 L* (1.6-2.6) mg/dL Total Bilirubin (0.0-1.0) mg/dL AST (5-37) U/L ALT (0-40) U/L Alkaline Phosphatase (39-117) U/L Total Protein (6.5-8.0) g/dL Albumin (3.5-5.0) g/dL Lipase < 4 L (8-78) U/L Urine Color Urine Appearance Urine pH (5.0-8.0) Ur Specific [place] (1.005-1.025) Urine Protein (NEG-TRACE) MG/DL Urine Glucose (UA) (NEG) MG/DL Urine Ketones (NEG) MG/DL Urine Blood (NEG) Urine Nitrite (NEG) Ur Leukocyte Esterase (NEG) Urine RBC (0) /HPF Urine WBC (0-4) /HPF Ur Squamous Epith Cells /LPF Ur Renal Epithelial Cell /LPF Urine Bacteria /LPF Hyaline Casts /LPF Granular Casts /LPF Urine Mucus /LPF Ethyl Alcohol < 10 mg/dL Acetone, Qual Negative (Negative) 03/14/22 03/14/22 03/14/22 Range/Units 15:56 15:56 15:59 WBC (4.8-10.8) X10*3/uL RBC (4.60-5.80) X10*6/uL Hgb (14.0-18.0) g/dl Hct (42.0-52.0) % MCV (80.0-98.0) fL MCH (27.0-33.0) pg MCHC (31.0-36.0) g/dl RDW (11.0-16.0) % Plt Count (160-400) X10*3/uL MPV (9.4-12.4) fL Immature Gran % (Auto) (0.0-0.4) % Neut % (Auto) (45-73) % Lymph % (Auto) (20-40) % [place] % (Auto) (2-11) % Eos % (Auto) (0-4) % Baso % (Auto) (0-2) % Lymph # (Auto) (1.2-4.9) X10*3/uL [place] # (Auto) (0.1-1.2) X10*3/uL Eos # (Auto) (0.0-0.4) X10*3/uL Baso # (Auto) (0.0-0.2) X10*3/uL Abs Immat Gran (auto) (0.00-0.03) X10*3/uL Absolute Neuts (auto) (2.0-8.3) x10*3/uL Absolute Nucleated RBC (0.0-0.012) X10*3/uL Nucleated RBC % (auto) (0.0-0.2) /100WBC Hold Purple Top SEE NOTE VBG pH (7.32-7.43) VBG pCO2 mmHg VBG pO2 mmHg VBG HCO3 (22-26) mmol/L VBG O2 Saturation % VBG Base Excess mmol/L Sodium (135-145) mmol/L Potassium (3.3-5.1) mmol/L Chloride (96-108) mmol/L Carbon Dioxide (22-29) mmol/L Anion Gap (12-20) BUN (9-16) mg/dL Creatinine (0.5-1.4) mg/dL Estim Creat Clear Calc Estimated GFR POC Glucose (60-115) mg/dL Random Glucose (60-115) mg/dL Lactic Acid 4.6 H* (0.5-2.0) mmol/L Lactic Acid F/U @ 2Hr (0.5-2.0) mmol/L Calcium (8.4-10.2) mg/dL Magnesium (1.6-2.6) mg/dL Total Bilirubin (0.0-1.0) mg/dL AST (5-37) U/L ALT (0-40) U/L Alkaline Phosphatase (39-117) U/L Total Protein (6.5-8.0) g/dL Albumin (3.5-5.0) g/dL Lipase (8-78) U/L Urine Color Urine Appearance Urine pH (5.0-8.0) Ur Specific [place] (1.005-1.025) Urine Protein (NEG-TRACE) MG/DL Urine Glucose (UA) (NEG) MG/DL Urine Ketones (NEG) MG/DL Urine Blood (NEG) Urine Nitrite (NEG) Ur Leukocyte Esterase (NEG) Urine RBC (0) /HPF Urine WBC (0-4) /HPF Ur Squamous Epith Cells /LPF Ur Renal Epithelial Cell /LPF Urine Bacteria /LPF Hyaline Casts /LPF Granular Casts /LPF Urine Mucus /LPF Ethyl Alcohol Cancelled mg/dL Acetone, Qual (Negative) 03/14/22 03/14/22 03/14/22 Range/Units 16:03 18:54 19:18 WBC (4.8-10.8) X10*3/uL RBC (4.60-5.80) X10*6/uL Hgb (14.0-18.0) g/dl Hct (42.0-52.0) % MCV (80.0-98.0) fL MCH (27.0-33.0) pg MCHC (31.0-36.0) g/dl RDW (11.0-16.0) % Plt Count (160-400) X10*3/uL MPV (9.4-12.4) fL Immature Gran % (Auto) (0.0-0.4) % Neut % (Auto) (45-73) % Lymph % (Auto) (20-40) % [place] % (Auto) (2-11) % Eos % (Auto) (0-4) % Baso % (Auto) (0-2) % Lymph # (Auto) (1.2-4.9) X10*3/uL [place] # (Auto) (0.1-1.2) X10*3/uL Eos # (Auto) (0.0-0.4) X10*3/uL Baso # (Auto) (0.0-0.2) X10*3/uL Abs Immat Gran (auto) (0.00-0.03) X10*3/uL Absolute Neuts (auto) (2.0-8.3) x10*3/uL Absolute Nucleated RBC (0.0-0.012) X10*3/uL Nucleated RBC % (auto) (0.0-0.2) /100WBC Hold Purple Top VBG pH 7.42 (7.32-7.43) VBG pCO2 44 mmHg VBG pO2 44 mmHg VBG HCO3 29 H (22-26) mmol/L VBG O2 Saturation 66.0 % VBG Base Excess 4.2 mmol/L Sodium (135-145) mmol/L Potassium (3.3-5.1) mmol/L Chloride (96-108) mmol/L Carbon Dioxide (22-29) mmol/L Anion Gap (12-20) BUN (9-16) mg/dL Creatinine (0.5-1.4) mg/dL Estim Creat Clear Calc Estimated GFR POC Glucose (60-115) mg/dL Random Glucose (60-115) mg/dL Lactic Acid (0.5-2.0) mmol/L Lactic Acid F/U @ 2Hr 3.9 H* (0.5-2.0) mmol/L Calcium (8.4-10.2) mg/dL Magnesium (1.6-2.6) mg/dL Total Bilirubin (0.0-1.0) mg/dL AST (5-37) U/L ALT (0-40) U/L Alkaline Phosphatase (39-117) U/L Total Protein (6.5-8.0) g/dL Albumin (3.5-5.0) g/dL Lipase (8-78) U/L Urine Color YELLOW Urine Appearance CLEAR Urine pH 6.0 (5.0-8.0) Ur Specific [place] 1.020 (1.005-1.025) Urine Protein TRACE (NEG-TRACE) MG/DL Urine Glucose (UA) >=1000 H (NEG) MG/DL Urine Ketones >=80 (NEG) MG/DL Urine Blood 1+ H (NEG) Urine Nitrite NEG (NEG) Ur Leukocyte Esterase NEG (NEG) Urine RBC 1-4 (0) /HPF Urine WBC 0 (0-4) /HPF Ur Squamous Epith Cells 1+ /LPF Ur Renal Epithelial Cell 3+ /LPF Urine Bacteria NONE /LPF Hyaline Casts 1-4 /LPF Granular Casts 1-4 /LPF Urine Mucus 2+ /LPF Ethyl Alcohol mg/dL Acetone, Qual (Negative) 03/14/22 03/14/22 Range/Units 19:18 20:51 WBC (4.8-10.8) X10*3/uL RBC (4.60-5.80) X10*6/uL Hgb (14.0-18.0) g/dl Hct (42.0-52.0) % MCV (80.0-98.0) fL MCH (27.0-33.0) pg MCHC (31.0-36.0) g/dl RDW (11.0-16.0) % Plt Count (160-400) X10*3/uL MPV (9.4-12.4) fL Immature Gran % (Auto) (0.0-0.4) % Neut % (Auto) (45-73) % Lymph % (Auto) (20-40) % [place] % (Auto) (2-11) % Eos % (Auto) (0-4) % Baso % (Auto) (0-2) % Lymph # (Auto) (1.2-4.9) X10*3/uL [place] # (Auto) (0.1-1.2) X10*3/uL Eos # (Auto) (0.0-0.4) X10*3/uL Baso # (Auto) (0.0-0.2) X10*3/uL Abs Immat Gran (auto) (0.00-0.03) X10*3/uL Absolute Neuts (auto) (2.0-8.3) x10*3/uL Absolute Nucleated RBC (0.0-0.012) X10*3/uL Nucleated RBC % (auto) (0.0-0.2) /100WBC Hold Purple Top VBG pH (7.32-7.43) VBG pCO2 mmHg VBG pO2 mmHg VBG HCO3 (22-26) mmol/L VBG O2 Saturation % VBG Base Excess mmol/L Sodium 129 L (135-145) mmol/L Potassium 3.9 (3.3-5.1) mmol/L Chloride 87 L (96-108) mmol/L Carbon Dioxide 19 L (22-29) mmol/L Anion Gap 27 H (12-20) BUN 9 (9-16) mg/dL Creatinine 0.80 (0.5-1.4) mg/dL Estim Creat Clear Calc 112.4 Estimated GFR > 60 POC Glucose 241 H (60-115) mg/dL Random Glucose 276 H (60-115) mg/dL Lactic Acid (0.5-2.0) mmol/L Lactic Acid F/U @ 2Hr (0.5-2.0) mmol/L Calcium 8.0 L D (8.4-10.2) mg/dL Magnesium (1.6-2.6) mg/dL Total Bilirubin 1.1 H (0.0-1.0) mg/dL AST 26 D (5-37) U/L ALT 14 (0-40) U/L Alkaline Phosphatase 141 H (39-117) U/L Total Protein 7.3 D (6.5-8.0) g/dL Albumin 4.0 (3.5-5.0) g/dL Lipase (8-78) U/L Urine Color Urine Appearance Urine pH (5.0-8.0) Ur Specific [place] (1.005-1.025) Urine Protein (NEG-TRACE) MG/DL Urine Glucose (UA) (NEG) MG/DL Urine Ketones (NEG) MG/DL Urine Blood (NEG) Urine Nitrite (NEG) Ur Leukocyte Esterase (NEG) Urine RBC (0) /HPF Urine WBC (0-4) /HPF Ur Squamous Epith Cells /LPF Ur Renal Epithelial Cell /LPF Urine Bacteria /LPF Hyaline Casts /LPF Granular Casts /LPF Urine Mucus /LPF Ethyl Alcohol mg/dL Acetone, Qual (Negative) Critical Care Time Critical Care Time Critical Care Time: Yes Total Critical Care Time: 40 Attestation: I attest to this time spent taking care of the patient, obtaining history, physical, reviewing labs, imaging, speaking to my attending Discharge Plan Discharge Clinical Impression: Alcohol withdrawal, Headache, Nausea & vomiting, Acidosis, lactic Patient Disposition: Still a Patient Prescriptions: No Action (DME) FreeStyle Lite Strips Strip See Rx Instructions .Route Qty: 150 11RF Rx Instructions: Four times a day (DME) lancets [TRUEplus Lancets] 33 gauge misc See Rx Instructions .Route Qty: 200 11RF Rx Instructions: Four times a day insulin aspart U-100 [Novolog Flexpen U-100 Insulin] 100 unit/mL (3 mL) insulin pen 1 - 25 unit subcut QID Qty: 30 3RF (DME) pen needle, diabetic [BD July 2nd Gen Pen Needle] 32 gauge x 5/32 needle See Rx Instructions .MEDSUPPLY Qty: 150 4RF Rx Instructions: 5 times a day lamotrigine 200 mg tablet 1 tab PO BID insulin glargine [Lantus Solostar U-100 Insulin] 100 unit/mL (3 mL) insulin pen 50 unit subcut BEDTIME metformin 1,000 mg tablet 1 tab PO BID metronidazole 500 mg Tablet 500 mg PO Q12H Qty: 20 0RF quetiapine [Seroquel] 400 mg tablet 400 mg PO BEDTIME trazodone 100 mg tablet 200 mg PO BEDTIME clonidine HCl 0.2 mg tablet 0.2 mg PO BID citalopram 40 mg tablet 40 mg PO DAILY thiamine HCl (vitamin B1) 100 mg tablet 100 mg PO DAILY folic acid 1 mg tablet 1 mg PO DAILY magnesium oxide 400 mg (241.3 mg magnesium) tablet 400 mg PO BID
[2022-03-14 16:22] LABS: Anion Gap 25 (12-20); Blood Urea Nitrogen 9 mg/dL (9-16); Calcium 8.8 mg/dL (8.4-10.2); Carbon Dioxide 27 mmol/L (22-29); Chloride 81 mmol/L (96-108); Creatinine Clr Calc Pharmacy 103.4; Estimated Glomerular Filt Rate > 60; Glucose Random 349 mg/dL (60-115); Potassium 4.1 mmol/L (3.3-5.1); Sodium 129 mmol/L (135-145)
[2022-03-14 16:46] VITALS: BP 139/88; PULSE 80; RESP 16; O2SAT 100
[2022-03-14] MEDS: 0.9 % Sodium Chloride 2,313.33 ML 2313.33 ML IV (16:49)
[2022-03-14 16:56] LABS: Acetone, serum QL Negative (Negative)
[2022-03-14 17:03] LABS: Lipase < 4 U/L (8-78)
[2022-03-14] MEDS: Insulin Regular, Human 100 UNIT/ML 3 ML VIAL 10 UNIT IVPUSH (17:19)
[2022-03-14] MEDS: levoFLOXacin/D5W 750 MG/150 ML PIGGYBACK 100 MG IV (17:19)
[2022-03-14 17:37] LABS: Ethanol < 10 mg/dL
[2022-03-14 17:39] LABS: Magnesium 1.3 mg/dL (1.6-2.6)
--- NOTE | 2022-03-14 18:02 | PC.NURSE ---
iv infiltrated in r ac from previous us guided iv- additional us iv guided line placed by pa will attempt to resume meds
[2022-03-14 18:05] LABS: Reflex Lactate? Lactic Acid Added
[2022-03-14] MEDS: Morphine Sulfate 4 MG/ML CARTRIDGE IVPUSH (18:05)
[2022-03-14] MEDS: Magnesium Sulfate/H2O 2 GM/50 ML PIGGYBACK IV (18:59)
[2022-03-14 19:11] LABS: Appearance Urine CLEAR; Color Urine YELLOW; Glucose Urine UA >=1000 MG/DL (NEG); Leukocyte Esterase Urine NEG (NEG); Nitrite Urine NEG (NEG); UACC Culture Trigger NO; Urine Blood 1+ (NEG); Urine Ketones >=80 MG/DL (NEG); Urine Protein TRACE MG/DL (NEG-TRACE)
[2022-03-14 19:20] LABS: Squamous Epithelial Cell Urine 1+ /LPF; WBC Urine 0 /HPF (0-4)
[2022-03-14 19:21] LABS: Mucus Urine 2+ /LPF; Renal Epithelial Cells Urine 3+ /LPF
[2022-03-14 19:56] LABS: Alanine Aminotransferase 14 U/L (0-40); Alkaline Phosphatase 141 U/L (39-117); Anion Gap 27 (12-20); Aspartate Amino Transferase 26 U/L (5-37); Bilirubin Total 1.1 mg/dL (0.0-1.0); Blood Urea Nitrogen 9 mg/dL (9-16); Carbon Dioxide 19 mmol/L (22-29); Chloride 87 mmol/L (96-108); Creatinine Clr Calc Pharmacy 112.4; Estimated Glomerular Filt Rate > 60; Glucose Random 276 mg/dL (60-115); Potassium 3.9 mmol/L (3.3-5.1); Sodium 129 mmol/L (135-145); Total Protein 7.3 g/dL (6.5-8.0)
[2022-03-14 19:59] LABS: ~Lactic Acid-LAB USE ONLY 3.9 mmol/L (0.5-2.0)
[2022-03-14 21:12] LABS: Glucose, Whole Blood 241 mg/dL (60-115)
[2022-03-14] MEDS: 0.9 % Sodium Chloride 1,000 ML 999 ML IV ×2 (21:16→22:27)
[2022-03-14 21:21] LABS: Reflex Lactate? 2 Y
--- NOTE | 2022-03-14 21:44 | PHA.MEDREC ---
Pharmacy Consult ? Medication Reconciliation Pharmacy has completed the medication reconciliation.
[2022-03-14] MEDS: Enoxaparin Sodium 40 MG/0.4 ML SYRINGE SUBCUT (21:48)
--- NOTE | 2022-03-14 21:52 | PM.IMHP ---
History of Present Illness Date of Service: 03/14/22 Chief Complaint: abd pain, N/V this is a 41-year-old male with past medical history of bipolar disorder, diabetes on insulin, as well as history of alcohol abuse presents to the hospital with complaints of abdominal pain nausea and vomiting x1 day. Patient was recently admitted to the hospital in January with complaint of substernal chest discomfort, was felt to be in alcohol withdrawal, started on Ativan taper but developed anaphylactic reaction, he was intubated and admitted to the ICU, patient was discharged from the hospital on 02/04. He returns today stating abdominal pain nausea vomiting x1 day, reports that he had multiple tall drinks of alcohol on Sunday, although he reports that he usually does not drink every day. he states abdominal pain is to, 05/15, nonradiating, constant, approved with pain medications given in the ED.He denies ingesting any other toxins or any other drugs. He reports chills with no fever, no shortness of breath, no cough, no sputum production,no chest pain, no palpitations, no abdominal pain nausea or vomiting, no diarrhea constipation, no urinary symptoms and no lower extremity edema. reports no skin infections. On arrival to the ED patient Found to have heart rate of 104, temp of 97.8 degrees, blood pressure 149/100, CIWA of 24 labs are found to be significant for WBC count of 7.5, hemoglobin of 15.5, hematocrit 43.9, pH of 7.42, sodium of 129, chloride of 81, anion gap 26, serum osmolality of 276, lactic acid of 4.6, which resolved after IV fluids, magnesium 1.3, lipase less than 4, UA negative, alcohol level less than 10, acetone negative, patient has no osmolar gap patient started on phenobarb protocol and will be admitted for further management Review of Systems Review of Systems: Yes all other systems are reviewed and are negative [facility] Medical History (Updated 03/15/22 @ 06:37 by César Sotelo MD) Bacteremia Bipolar disorder 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 Mother Diabetes Surgical History No pertinent past surgical history Social History Alcohol intake: former Patient Tobacco Use Status: Never used Tobacco Use of substances other than those prescribed or required for medical reasons: No Advance Directives: No Advance Directives Information Provided: Yes service: No Current occupational status: employed Meds Allergies Allergy/AdvReac Type Severity Reaction Status Date / Time clonazepam Allergy Unknown Unknown Verified 02/08/22 09:46 meropenem [MEROPENEM] Allergy Unknown SWELLING Verified 02/08/22 09:46 penicillin G procaine Allergy Unknown itching Verified 02/08/22 09:46 Penicillins [PENICILLINS] Allergy Unknown SWELLING Verified 02/08/22 09:46 lorazepam [From Ativan] Allergy Anaphylaxis Verified 02/08/22 09:46 Active Medications: Current Medications Acetaminophen (Acetaminophen 325 Mg Tablet) 650 mg PO Q6H PRN PRN Reason: Pain, Mild (Pain Scale 1-3) Enoxaparin Sodium (Enoxaparin Sodium 40 Mg/0.4 Ml Syringe) 40 mg SUBCUT Q24H MAINOR Last Admin: 03/14/22 21:48 Dose: 40 mg Folic Acid (Folic Acid 1 Mg Tablet) 1 mg PO DAILY MAINOR Lactated Ringer's (Lr) 1,000 mls @ 100 mls/hr IVCONT .Q10H MAINOR Ondansetron HCl (Ondansetron Hcl 4 Mg/2 Ml Vial) 4 mg IVPUSH Q8H PRN PRN Reason: Nausea and Vomiting Pharmacy Consult (Consult Rx Etoh Phenob Po Only) 1 each MISCELLANE ONCE PRN; Protocol PRN Reason: Consult order Pharmacy Consult (Consult Rx Perform Med Rec) 1 each MISCELLANE ONCE PRN PRN Reason: Consult order Phenobarbital 200 mg/ (Phenobarbital 30 mg) 230 mg PO Q3H MAINOR Stop: 03/15/22 03:01 Phenobarbital (Phenobarbital 15 Mg Tablet) 45 mg PO BID MAINOR Stop: 03/17/22 09:01 Phenobarbital (Phenobarbital 30 Mg Tablet) 30 mg PO BID MAINOR Stop: 03/19/22 09:01 Phenobarbital (Phenobarbital 30 Mg Tablet) 30 mg PO DAILY MAINOR Stop: 03/21/22 09:01 Sodium Chloride (0.9 % Sodium Chloride Flush 3 Ml Syringe) 3 ml IVFLUSH QSHIFT MAINOR Thiamine HCl (Thiamine Hcl 100 Mg Tablet) 100 mg PO DAILY [facility] Home Medications Medication Instructions Recorded Confirmed Last Taken Type clonidine HCl 0.2 mg tablet 0.2 mg PO BID 11/11/20 03/14/22 Unknown History quetiapine 400 mg tablet (Seroquel) 400 mg PO BEDTIME 11/11/20 03/14/22 Unknown History trazodone 100 mg tablet 200 mg PO BEDTIME 11/11/20 03/14/22 Unknown History insulin glargine 100 unit/mL (3 50 unit subcut BEDTIME 01/28/22 03/14/22 Unknown History mL) subcutaneous pen (Lantus Solostar U-100 Insulin) lamotrigine 200 mg tablet 1 tab PO BID 01/28/22 03/14/22 Unknown History metformin 1,000 mg tablet 1 tab PO BIDWM 01/28/22 03/14/22 Unknown History citalopram 40 mg tablet 40 mg PO DAILY 02/08/22 03/14/22 Unknown History folic acid 1 mg tablet 1 mg PO DAILY 02/08/22 03/14/22 Unknown History magnesium oxide 400 mg (241.3 mg 400 mg PO BID 02/08/22 03/14/22 Unknown History magnesium) tablet thiamine HCl (vitamin B1) 100 mg 100 mg PO DAILY 02/08/22 03/14/22 Unknown History tablet clonazepam 1 mg tablet 1 tab PO BID PRN Anxiety 03/14/22 03/14/22 Unknown History zolpidem 5 mg tablet 1 tab PO BEDTIME PRN Sleep 03/14/22 03/14/22 Unknown History Physical Exam Vital Signs and Narrative: Vital Signs: Last Vital Signs Temp 97.8 F 03/14/22 14:18 Pulse 80 03/14/22 16:46 Resp 16 03/14/22 16:46 BP 139/88 03/14/22 16:46 Pulse Ox 100 03/14/22 16:46 O2 Del Method 03/14/22 16:46 BMI result Body Mass Index 26.6 Const: Other: alert, awake, responds to questions appropriately, has significant chills, appears ill General: cooperative and no acute distress Orientation/consciousness: patient oriented x3 Eyes: General: appearance normal, both eyes and all related structures Pupils: Equal, round and reactive pupils present Resp: Effort & Inspection: normal respiratory effort Auscultation: clear to auscultation bilaterally Cardio: Other: tachycardic Rhythm: regular rhythm GI: Palpation (GI): Soft to palpation Auscultation: normal bowel sounds Skin: General skin exam: no rashes or lesions noted Neuro: General: patient oriented x3 Cranial nerves: Yes Equal, round and reactive pupils present Cognition (Neuro): normal cognition Extrem: General: Yes normal to inspection and Yes no pedal edema Results Labs CBC and Chem 7: 03/14/22 15:56 03/14/22 19:18 Labs: Laboratory Results - last 24 hr 03/14/22 03/14/22 03/14/22 14:25 15:56 15:56 MCV 85.6 MCH 30.2 MCHC 35.3 RDW 12.9 Plt Count 245 D MPV 9.4 Immature Gran % (Auto) 0.9 H Neut % (Auto) 74.9 H Lymph % (Auto) 12.3 L [place] % (Auto) 11.8 H Eos % (Auto) 0.0 Baso % (Auto) 0.1 Lymph # (Auto) 0.9 L [place] # (Auto) 0.9 Eos # (Auto) 0.0 Baso # (Auto) 0.0 Abs Immat Gran (auto) 0.07 H Absolute Neuts (auto) 5.6 Absolute Nucleated RBC 0.000 Nucleated RBC % (auto) 0.0 Hold Purple Top VBG pH VBG pCO2 VBG pO2 VBG HCO3 VBG O2 Saturation VBG Base Excess Anion Gap 25 H Estim Creat Clear Calc 103.4 Estimated GFR > 60 POC Glucose 328 H Random Glucose 349 H D Lactic Acid Lactic Acid F/U @ 2Hr Calcium 8.8 D Magnesium 1.3 L* Total Bilirubin AST ALT Alkaline Phosphatase Total Protein Albumin Lipase < 4 L Urine Color Urine Appearance Urine pH Ur Specific [place] Urine Protein Urine Glucose (UA) Urine Ketones Urine Blood Urine Nitrite Ur Leukocyte Esterase Urine RBC Urine WBC Ur Squamous Epith Cells Ur Renal Epithelial Cell Urine Bacteria Hyaline Casts Granular Casts Urine Mucus Ethyl Alcohol < 10 Acetone, Qual Negative 03/14/22 03/14/22 03/14/22 15:56 15:56 15:59 MCV MCH MCHC RDW Plt Count MPV Immature Gran % (Auto) Neut % (Auto) Lymph % (Auto) [place] % (Auto) Eos % (Auto) Baso % (Auto) Lymph # (Auto) [place] # (Auto) Eos # (Auto) Baso # (Auto) Abs Immat Gran (auto) Absolute Neuts (auto) Absolute Nucleated RBC Nucleated RBC % (auto) Hold Purple Top SEE NOTE VBG pH VBG pCO2 VBG pO2 VBG HCO3 VBG O2 Saturation VBG Base Excess Anion Gap Estim Creat Clear Calc Estimated GFR POC Glucose Random Glucose Lactic Acid 4.6 H* Lactic Acid F/U @ 2Hr Calcium Magnesium Total Bilirubin AST ALT Alkaline Phosphatase Total Protein Albumin Lipase Urine Color Urine Appearance Urine pH Ur Specific [place] Urine Protein Urine Glucose (UA) Urine Ketones Urine Blood Urine Nitrite Ur Leukocyte Esterase Urine RBC Urine WBC Ur Squamous Epith Cells Ur Renal Epithelial Cell Urine Bacteria Hyaline Casts Granular Casts Urine Mucus Ethyl Alcohol Cancelled Acetone, Qual 03/14/22 03/14/22 03/14/22 16:03 18:54 19:18 MCV MCH MCHC RDW Plt Count MPV Immature Gran % (Auto) Neut % (Auto) Lymph % (Auto) [place] % (Auto) Eos % (Auto) Baso % (Auto) Lymph # (Auto) [place] # (Auto) Eos # (Auto) Baso # (Auto) Abs Immat Gran (auto) Absolute Neuts (auto) Absolute Nucleated RBC Nucleated RBC % (auto) Hold Purple Top VBG pH 7.42 VBG pCO2 44 VBG pO2 44 VBG HCO3 29 H VBG O2 Saturation 66.0 VBG Base Excess 4.2 Anion Gap Estim Creat Clear Calc Estimated GFR POC Glucose Random Glucose Lactic Acid Lactic Acid F/U @ 2Hr 3.9 H* Calcium Magnesium Total Bilirubin AST ALT Alkaline Phosphatase Total Protein Albumin Lipase Urine Color YELLOW Urine Appearance CLEAR Urine pH 6.0 Ur Specific [place] 1.020 Urine Protein TRACE Urine Glucose (UA) >=1000 H Urine Ketones >=80 Urine Blood 1+ H Urine Nitrite NEG Ur Leukocyte Esterase NEG Urine RBC 1-4 Urine WBC 0 Ur Squamous Epith Cells 1+ Ur Renal Epithelial Cell 3+ Urine Bacteria NONE Hyaline Casts 1-4 Granular Casts 1-4 Urine Mucus 2+ Ethyl Alcohol Acetone, Qual 03/14/22 03/14/22 19:18 20:51 MCV MCH MCHC RDW Plt Count MPV Immature Gran % (Auto) Neut % (Auto) Lymph % (Auto) [place] % (Auto) Eos % (Auto) Baso % (Auto) Lymph # (Auto) [place] # (Auto) Eos # (Auto) Baso # (Auto) Abs Immat Gran (auto) Absolute Neuts (auto) Absolute Nucleated RBC Nucleated RBC % (auto) Hold Purple Top VBG pH VBG pCO2 VBG pO2 VBG HCO3 VBG O2 Saturation VBG Base Excess Anion Gap 27 H Estim Creat Clear Calc 112.4 Estimated GFR > 60 POC Glucose 241 H Random Glucose 276 H Lactic Acid Lactic Acid F/U @ 2Hr Calcium 8.0 L D Magnesium Total Bilirubin 1.1 H AST 26 D ALT 14 Alkaline Phosphatase 141 H Total Protein 7.3 D Albumin 4.0 Lipase Urine Color Urine Appearance Urine pH Ur Specific [place] Urine Protein Urine Glucose (UA) Urine Ketones Urine Blood Urine Nitrite Ur Leukocyte Esterase Urine RBC Urine WBC Ur Squamous Epith Cells Ur Renal Epithelial Cell Urine Bacteria Hyaline Casts Granular Casts Urine Mucus Ethyl Alcohol Acetone, Qual Imaging Radiologist's Impressions: Impressions Abdomen/Pelvis CT 03/14/22 17:36 IMPRESSION: 1. No acute intra-abdominal process identified to explain the patient's diffuse abdominal pain. 2. Pancreatic parenchymal calcifications compatible sequela of chronic pancreatitis. No CT findings of acute pancreatitis. 3. Mild hepatic steatosis, significantly improved since comparison. 4. Thick-walled appearance of portions of the colon favored artifactual due to nondistention of the colon. No pericolonic inflammatory changes to suggest specific evidence of acute colitis. 5. 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 No articular surface collapse or fragmentation. Assessment and Plan (1) Alcohol withdrawal: Status: Acute (2) Nausea & vomiting: Status: Acute (3) Acidosis, lactic: Status: Acute (4) Tachycardia: Status: Acute Plan this is a 41-year-old male with past medical history of bipolar disorder, diabetes, as well as alcohol abuse presents the hospital with nausea vomiting and abdominal pain found to have high CIWA and in alcohol withdrawal # alcohol withdrawal - patient with alcohol abuse, no evidence of a wound gap or ingestion of any other toxins - will treat with phenobarb protocol - avoid Ativan as patient had anaphylactic reaction last admission - monitor symptoms - p.r.n. phenobarb if needed # nausea and vomiting /abdominal pain - likely secondary to above - no evidence of pancreatitis - abdominal pelvic CT shows no acute intra-abdominal process identified to explain this patient's diffuse abdominal pain - has chronic pancreatitis # lactic acidosis - secondary to above - resolved with IV fluids # tachycardia - likely in the setting of alcohol withdrawal - patie nt has no evidence of infection, UA is negative, has no leukocytosis, afebrile - does not have any acute respiratory symptoms, urine is negative, abdominal CT has no evidence of acute infection - if continues to be tachycardic consider CT angiogram for ruling out PE given his recent hospitalization but I had the dilated as this is likely secondary to alcohol withdrawal - will continue IV fluids, monitor on tele # diabetes mellitus - not in DKA - continue home medications of insulin, will add low-dose sliding scale insulin, diabetic diet DVT prophylaxis: Lovenox given his significant alcohol withdrawal, patient will require an minimum 2 night hospital stay for further management and monitoring Quality Stroke Does the patient have a stroke diagnosis?: No VTE Prior VTE?: No VTE Risk Level:: Medical - moderate - high VTE Device Contraindication: Treatment Not Indicated VTE Drug Contraindication: N/A - Med Ordered
[2022-03-14] MEDS: ondansetron HCL 4 MG/2 ML VIAL IVPUSH (22:27)
[2022-03-14] MEDS: Lactated Ringers 1,000 ML 100 ML IVCONT (23:34)
[2022-03-14 23:38] LABS: ~Lactic Acid-LAB USE ONLY 1.4 mmol/L (0.5-2.0)
[2022-03-14] MEDS: QUEtiapine Fumarate 400 MG TABLET PO (23:59)
[2022-03-15] VITALS (9 sets, daily range): BP systolic 100–139; BP diastolic 60–94; PULSE 90–149; RESP 16–98; TEMP 36.2–37.3; O2SAT 95–99
--- NOTE | 2022-03-15 | ECG_ITS ---
Test Reason : AFIB Blood Pressure : / mmHG Vent. Rate : 104 BPM Atrial Rate : 104 BPM P-R Int : 138 ms QRS Dur : 086 ms QT Int : 336 ms P-R-T Axes : 074 040 049 degrees QTc Int : 441 ms Sinus tachycardia Otherwise normal ECG When compared with ECG of 15-MAR-2022 02:33, No significant change was found Referred By: César Sotelo Electronically Signed By:KIRSTEN RAO
[2022-03-15] MEDS: lamoTRIgine 100 MG TABLET 200 MG PO ×3 (00:01→22:30)
[2022-03-15] MEDS: PHENobarbitaL 200 MG, PHENobarbitaL 30 MG 230 MG PO ×2 (00:01→02:50)
[2022-03-15] MEDS: Insulin Glargine,Hum.rec.anlog 100 UNIT/ML 10 ML VIAL 50 UNIT SUBCUT ×2 (00:02→22:31)
[2022-03-15 00:50] LABS: Osmolality, Serum 286 mosm/kg (281-305)
[2022-03-15 01:08] LABS: COVID-19 Test Negative (Negative)
[2022-03-15 01:13] LABS: Glucose, Whole Blood 224 mg/dL (60-115)
[2022-03-15 01:40] LABS: Potassium Urine Random 42.3 mmol/L
[2022-03-15 02:01] LABS: Chloride Urine Random < 20.0 mmol/L
[2022-03-15] MEDS: PHENobarbitaL sodium 130 MG/ML VIAL IV (02:50)
[2022-03-15] MEDS: Metoprolol Tartrate 5 MG/5 ML VIAL IVPUSH ×2 (03:19→06:23)
[2022-03-15 06:25] LABS: MANUAL DIFF FLAG NO
[2022-03-15 06:26] LABS: Hemoglobin 14.7 g/dl (14.0-18.0); Imm Gran Abs Auto 0.04 X10*3/uL (0.00-0.03); Imm Gran Pct Auto 0.7 % (0.0-0.4); Lymphocytes Absolute Auto 1.8 X10*3/uL (1.2-4.9); Lymphocytes Percent Auto 32.3 % (20-40); Mean Corpuscular HGB Conc 35.9 g/dl (31.0-36.0); Mean Corpuscular Hemoglobin 30.6 pg (27.0-33.0); Mean Corpuscular Volume 85.2 fL (80.0-98.0); Mean Platelet Volume 9.5 fL (9.4-12.4); Monocytes Absolute Auto 0.8 X10*3/uL (0.1-1.2); Monocytes Percent Auto 13.5 % (2-11); Neutrophils Absolute Auto 3.1 x10*3/uL (2.0-8.3); Neutrophils Percent Auto 53.5 % (45-73); Platelet Count 166 X10*3/uL (160-400); Red Blood Count 4.81 X10*6/uL (4.60-5.80); Red Cell Distribution Width 13.1 % (11.0-16.0); White Blood Count 5.7 X10*3/uL (4.8-10.8)
[2022-03-15] MEDS: PHENobarbitaL 30 MG TABLET 120 MG PO (06:41)
[2022-03-15 06:46] LABS: Anion Gap 22 (12-20); Blood Urea Nitrogen 10 mg/dL (9-16); Calcium 8.5 mg/dL (8.4-10.2); Carbon Dioxide 28 mmol/L (22-29); Chloride 87 mmol/L (96-108); Creatinine Clr Calc Pharmacy 102.2; Estimated Glomerular Filt Rate > 60; Glucose Random 255 mg/dL (60-115); Potassium 3.5 mmol/L (3.3-5.1); Sodium 133 mmol/L (135-145)
[2022-03-15 07:09] LABS: Magnesium 1.5 mg/dL (1.6-2.6)
--- NOTE | 2022-03-15 07:14 | ECG_ITS ---
Test Reason : A FIB Blood Pressure : / mmHG Vent. Rate : 143 BPM Atrial Rate : 143 BPM P-R Int : 126 ms QRS Dur : 074 ms QT Int : 280 ms P-R-T Axes : 074 051 064 degrees QTc Int : 432 ms Sinus tachycardia Possible Left atrial enlargement Borderline ECG When compared with ECG of 27-JAN-2022 19:28, T wave amplitude has decreased in Anterior leads Referred By: César Sotelo Electronically Signed By:KIRSTEN RAO
[2022-03-15 07:17] LABS: Glucose, Whole Blood 270 mg/dL (60-115)
[2022-03-15] MEDS: Insulin Lispro 100 UNIT/ML 3 ML VIAL SUBCUT ×4 (07:26→22:31)
--- NOTE | 2022-03-15 07:27 | PC.NURSE ---
No lactic acid blood draw needed per RN and MD.
[2022-03-15] MEDS: Magnesium Sulfate/H2O 2 GM/50 ML PIGGYBACK IV (08:24)
[2022-03-15] MEDS: Lactated Ringers 1,000 ML 100 ML IVCONT ×2 (08:24→22:55)
[2022-03-15] MEDS: Thiamine HCL 100 MG TABLET PO (08:25)
[2022-03-15] MEDS: Escitalopram Oxalate 20 MG TABLET PO (08:25)
[2022-03-15] MEDS: cloNIDine HCL 0.2 MG TABLET PO ×2 (08:25→22:30)
[2022-03-15] MEDS: Folic Acid 1 MG TABLET PO (08:25)
[2022-03-15] MEDS: Magnesium Oxide 400 MG TABLET PO ×2 (08:25→17:23)
--- NOTE | 2022-03-15 11:23 | MHC.CM.PN ---
IMM addressed with patient's mom/hcp Becky Pereyra [phone], original mailed via certified mail, copy to file in chart. IMM addendum completed. Patient lives alone, has dog. He is independent at home/community, no DME or home services. Patient is employed, PCP is Frantz Vazquez [facility] ([facility]), HCP on file. Family will transport home. Patient is a he participated in a [facility] program for two years. Mom will provide further [facility] involvement information when she obtains it. D/C Plan: Home (self-care) vs Care Team recommendation.
[2022-03-15 11:38] LABS: Glucose, Whole Blood 212 mg/dL (60-115)
--- NOTE | 2022-03-15 14:18 | P.PNIM_ITS ---
Subjective Subjective Date of Service: 03/15/22 Interval History: alcohol withdrawal Review of Systems Seems tremulous and anxious abdominal pain improving, has nausea. Denies any chest pain or shortness of breath or vomiting Physical Exam Vital Signs: Vital Signs: Last Vital Signs Temp 99.2 F 03/15/22 06:22 Pulse 112 H 03/15/22 07:16 Resp 17 03/15/22 07:16 BP 128/90 H 03/15/22 07:16 Pulse Ox 98 03/15/22 07:16 O2 Del Method 03/15/22 07:16 BMI result Body Mass Index 26.6 Appearance: Alert.? Oriented X3.? not in distress.? cvs: rrr, [id number] , no murmur res: clear to auscultation ,no rhonchii or wheezing abd: no rebound or guarding ,nt, bs present. ext pulses present , no cyanosis. neuro: axo3 , nonfocal.tramulous, anxious. Objective Data Active Medications Acetaminophen (Acetaminophen 325 Mg Tablet) 650 mg PO Q6H PRN PRN Reason: Pain, Mild (Pain Scale 1-3) Clonazepam (Clonazepam 1 Mg Tablet) 1 mg PO BID PRN PRN Reason: Anxiety Clonidine HCl (Clonidine Hcl 0.2 Mg Tablet) 0.2 mg PO BID [facility]; Protocol Last Admin: 03/15/22 08:25 Dose: 0.2 mg Documented By: SUZI Dextrose (Dextrose 50 % 25 Gm/50 Ml Syringe) 25 gm IVPUSH Q15M PRN; Protocol PRN Reason: per Hypoglycemia Standing Ord. Enoxaparin Sodium (Enoxaparin Sodium 40 Mg/0.4 Ml Syringe) 40 mg SUBCUT Q24H [facility] Last Admin: 03/14/22 21:48 Dose: 40 mg Documented By: LISSETTE Escitalopram Oxalate (Escitalopram Oxalate 20 Mg Tablet) 20 mg PO DAILY [facility] Last Admin: 03/15/22 08:25 Dose: 20 mg Documented By: SUZI Folic Acid (Folic Acid 1 Mg Tablet) 1 mg PO DAILY [facility] Last Admin: 03/15/22 08:25 Dose: 1 mg Documented By: SUZI Glucose (Glucose Gel 15 Gm Gel..Gram.) 15 gm PO Q15M PRN; Protocol PRN Reason: per Hypoglycemia Standing Ord. Lactated Ringer's (Lr) 1,000 mls @ 100 mls/hr IVCONT .Q10H [facility] Last Admin: 03/15/22 08:24 Dose: 100 mls/hr Documented By: SUZI Insulin Glargine (Insulin Glargine,Hum.Rec.Anlog 100 Unit/Ml 10 Ml Vial) 50 unit SUBCUT BEDTIME [facility] Last Admin: 03/15/22 00:02 Dose: 50 unit Documented By: LISSETTE Insulin Human Lispro (Insulin Lispro 100 Unit/Ml 3 Ml Vial) 0 unit SUBCUT QIDACHS [facility]; Protocol Last Admin: 03/15/22 11:42 Dose: 4 unit Documented By: ABIMBOLA Lamotrigine (Lamotrigine 100 Mg Tablet) 200 mg PO BID [facility] Last Admin: 03/15/22 08:25 Dose: 200 mg Documented By: SUZI Magnesium Oxide (Magnesium Oxide 400 Mg Tablet) 400 mg PO BIDPC [facility] Last Admin: 03/15/22 11:16 Dose: Not Given Documented By: SUZI Non-Admin Reason: Duplicate Order Morphine Sulfate (Morphine Sulfate 4 Mg/Ml Cartridge) 4 mg IVPUSH Q4H PRN; Protocol PRN Reason: Pain, Severe (Pain Scale 7-10) Ondansetron HCl (Ondansetron Hcl 4 Mg/2 Ml Vial) 4 mg IVPUSH Q8H PRN PRN Reason: Nausea and Vomiting Pharmacy Consult (Consult Rx Etoh Phenob Po Only) 1 each MISCELLANE ONCE PRN; Protocol PRN Reason: Consult order Pharmacy Consult (Consult Rx Perform Med Rec) 1 each MISCELLANE ONCE PRN PRN Reason: Consult order Phenobarbital (Phenobarbital 15 Mg Tablet) 45 mg PO BID [facility] Stop: 03/17/22 09:01 Phenobarbital (Phenobarbital 30 Mg Tablet) 30 mg PO BID [facility] Stop: 03/19/22 09:01 Phenobarbital (Phenobarbital 30 Mg Tablet) 30 mg PO DAILY [facility] Stop: 03/21/22 09:01 Quetiapine Fumarate (Quetiapine Fumarate 400 Mg Tablet) 400 mg PO BEDTIME [facility] Last Admin: 03/14/22 23:59 Dose: 400 mg Documented By: LISSETTE Sodium Chloride (0.9 % Sodium Chloride Flush 3 Ml Syringe) 3 ml IVFLUSH QSHIFT [facility] Last Admin: 03/15/22 09:34 Dose: Not Given Documented By: SUZI Non-Admin Reason: IV Running Thiamine HCl (Thiamine Hcl 100 Mg Tablet) 100 mg PO DAILY [facility] Last Admin: 03/15/22 08:25 Dose: 100 mg Documented By: SUZI Trazodone HCl (Trazodone Hcl 100 Mg Tablet) 200 mg PO BEDTIME [facility] Last Admin: 03/15/22 00:00 Dose: 200 mg Documented By: LISSETTE Zolpidem Tartrate (Zolpidem Tartrate 5 Mg Tablet) 5 mg PO BEDTIME PRN PRN Reason: Sleep Labs CBC & Chem 7: 03/15/22 06:00 03/15/22 06:00 Labs: Laboratory Results - last 24 hr 03/14/22 03/14/22 03/14/22 12:19 14:25 15:56 MCV 85.6 MCH 30.2 MCHC 35.3 RDW 12.9 Plt Count 245 D MPV 9.4 Immature Gran % (Auto) 0.9 H Neut % (Auto) 74.9 H Lymph % (Auto) 12.3 L [place] % (Auto) 11.8 H Eos % (Auto) 0.0 Baso % (Auto) 0.1 Lymph # (Auto) 0.9 L [place] # (Auto) 0.9 Eos # (Auto) 0.0 Baso # (Auto) 0.0 Abs Immat Gran (auto) 0.07 H Absolute Neuts (auto) 5.6 Absolute Nucleated RBC 0.000 Nucleated RBC % (auto) 0.0 Hold Purple Top VBG pH VBG pCO2 VBG pO2 VBG HCO3 VBG O2 Saturation VBG Base Excess Anion Gap Estim Creat Clear Calc Estimated GFR POC Glucose 328 H Random Glucose Osmolality 286 Lactic Acid Lactic Acid F/U @ 2Hr Lactic Acid F/U @ 4Hr Calcium Magnesium Total Bilirubin AST ALT Alkaline Phosphatase Total Protein Albumin Lipase Urine Color Urine Appearance Urine pH Ur Specific [place] Urine Protein Urine Glucose (UA) Urine Ketones Urine Blood Urine Nitrite Ur Leukocyte Esterase Urine RBC Urine WBC Ur Squamous Epith Cells Ur Renal Epithelial Cell Urine Bacteria Hyaline Casts Granular Casts Urine Mucus Ur Random Sodium Ur Random Potassium Ur Random Chloride Ethyl Alcohol Acetone, Qual COVID-19 ([facility]EN) COVID-19 Clin Com 03/14/22 03/14/22 03/14/22 15:56 15:56 15:56 MCV MCH MCHC RDW Plt Count MPV Immature Gran % (Auto) Neut % (Auto) Lymph % (Auto) [place] % (Auto) Eos % (Auto) Baso % (Auto) Lymph # (Auto) [place] # (Auto) Eos # (Auto) Baso # (Auto) Abs Immat Gran (auto) Absolute Neuts (auto) Absolute Nucleated RBC Nucleated RBC % (auto) Hold Purple Top VBG pH VBG pCO2 VBG pO2 VBG HCO3 VBG O2 Saturation VBG Base Excess Anion Gap 25 H Estim Creat Clear Calc 103.4 Estimated GFR > 60 POC Glucose Random Glucose 349 H D Osmolality Lactic Acid 4.6 H* Lactic Acid F/U @ 2Hr Lactic Acid F/U @ 4Hr Calcium 8.8 D Magnesium 1.3 L* Total Bilirubin AST ALT Alkaline Phosphatase Total Protein Albumin Lipase < 4 L Urine Color Urine Appearance Urine pH Ur Specific [place] Urine Protein Urine Glucose (UA) Urine Ketones Urine Blood Urine Nitrite Ur Leukocyte Esterase Urine RBC Urine WBC Ur Squamous Epith Cells Ur Renal Epithelial Cell Urine Bacteria Hyaline Casts Granular Casts Urine Mucus Ur Random Sodium Ur Random Potassium Ur Random Chloride Ethyl Alcohol < 10 Cancelled Acetone, Qual Negative COVID-19 (ALLEN) COVID-19 Clin Com 03/14/22 03/14/22 03/14/22 15:59 16:03 18:54 MCV MCH MCHC RDW Plt Count MPV Immature Gran % (Auto) Neut % (Auto) Lymph % (Auto) [place] % (Auto) Eos % (Auto) Baso % (Auto) Lymph # (Auto) [place] # (Auto) Eos # (Auto) Baso # (Auto) Abs Immat Gran (auto) Absolute Neuts (auto) Absolute Nucleated RBC Nucleated RBC % (auto) Hold Purple Top SEE NOTE VBG pH 7.42 VBG pCO2 44 VBG pO2 44 VBG HCO3 29 H VBG O2 Saturation 66.0 VBG Base Excess 4.2 Anion Gap Estim Creat Clear Calc Estimated GFR POC Glucose Random Glucose Osmolality Lactic Acid Lactic Acid F/U @ 2Hr Lactic Acid F/U @ 4Hr Calcium Magnesium Total Bilirubin AST ALT Alkaline Phosphatase Total Protein Albumin Lipase Urine Color YELLOW Urine Appearance CLEAR Urine pH 6.0 Ur Specific [place] 1.020 Urine Protein TRACE Urine Glucose (UA) >=1000 H Urine Ketones >=80 Urine Blood 1+ H Urine Nitrite NEG Ur Leukocyte Esterase NEG Urine RBC 1-4 Urine WBC 0 Ur Squamous Epith Cells 1+ Ur Renal Epithelial Cell 3+ Urine Bacteria NONE Hyaline Casts 1-4 Granular Casts 1-4 Urine Mucus 2+ Ur Random Sodium Ur Random Potassium Ur Random Chloride Ethyl Alcohol Acetone, Qual COVID-19 (ALLEN) COVID-19 Clin [employer] 03/14/22 03/14/22 03/14/22 19:18 19:18 20:51 MCV MCH MCHC RDW Plt Count MPV Immature Gran % (Auto) Neut % (Auto) Lymph % (Auto) [place] % (Auto) Eos % (Auto) Baso % (Auto) Lymph # (Auto) [place] # (Auto) Eos # (Auto) Baso # (Auto) Abs Immat Gran (auto) Absolute Neuts (auto) Absolute Nucleated RBC Nucleated RBC % (auto) Hold Purple Top VBG pH VBG pCO2 VBG pO2 VBG HCO3 VBG O2 Saturation VBG Base Excess Anion Gap 27 H Estim Creat Clear Calc 112.4 Estimated GFR > 60 POC Glucose 241 H Random Glucose 276 H Osmolality Lactic Acid Lactic Acid F/U @ 2Hr 3.9 H* Lactic Acid F/U @ 4Hr Calcium 8.0 L D Magnesium Total Bilirubin 1.1 H AST 26 D ALT 14 Alkaline Phosphatase 141 H Total Protein 7.3 D Albumin 4.0 Lipase Urine Color Urine Appearance Urine pH Ur Specific [place] Urine Protein Urine Glucose (UA) Urine Ketones Urine Blood Urine Nitrite Ur Leukocyte Esterase Urine RBC Urine WBC Ur Squamous Epith Cells Ur Renal Epithelial Cell Urine Bacteria Hyaline Casts Granular Casts Urine Mucus Ur Random Sodium Ur Random Potassium Ur Random Chloride Ethyl Alcohol Acetone, Qual COVID-19 (ALLEN) COVID-19 Clin Com 03/14/22 03/14/22 03/15/22 23:19 23:19 01:08 MCV MCH MCHC RDW Plt Count MPV Immature Gran % (Auto) Neut % (Auto) Lymph % (Auto) [place] % (Auto) Eos % (Auto) Baso % (Auto) Lymph # (Auto) [place] # (Auto) Eos # (Auto) Baso # (Auto) Abs Immat Gran (auto) Absolute Neuts (auto) Absolute Nucleated RBC Nucleated RBC % (auto) Hold Purple Top VBG pH VBG pCO2 VBG pO2 VBG HCO3 VBG O2 Saturation VBG Base Excess Anion Gap Estim Creat Clear Calc Estimated GFR POC Glucose 224 H Random Glucose Osmolality Lactic Acid Lactic Acid F/U @ 2Hr Lactic Acid F/U @ 4Hr 1.4 Calcium Magnesium Total Bilirubin AST ALT Alkaline Phosphatase Total Protein Albumin Lipase Urine Color Urine Appearance Urine pH Ur Specific [place] Urine Protein Urine Glucose (UA) Urine Ketones Urine Blood Urine Nitrite Ur Leukocyte Esterase Urine RBC Urine WBC Ur Squamous Epith Cells Ur Renal Epithelial Cell Urine Bacteria Hyaline Casts Granular Casts Urine Mucus Ur Random Sodium Ur Random Potassium Ur Random Chloride Ethyl Alcohol Acetone, Qual COVID-19 (ALLEN) Negative COVID-19 [email or web address] Com See Note 03/15/22 03/15/22 03/15/22 01:13 06:00 06:00 MCV 85.2 MCH 30.6 MCHC 35.9 RDW 13.1 Plt Count 166 D MPV 9.5 Immature Gran % (Auto) 0.7 H Neut % (Auto) 53.5 Lymph % (Auto) 32.3 [place] % (Auto) 13.5 H Eos % (Auto) 0.0 Baso % (Auto) 0.0 Lymph # (Auto) 1.8 [place] # (Auto) 0.8 Eos # (Auto) 0.0 Baso # (Auto) 0.0 Abs Immat Gran (auto) 0.04 H Absolute Neuts (auto) 3.1 Absolute Nucleated RBC 0.000 Nucleated RBC % (auto) 0.0 Hold Purple Top VBG pH VBG pCO2 VBG pO2 VBG HCO3 VBG O2 Saturation VBG Base Excess Anion Gap 22 H Estim Creat Clear Calc 102.2 Estimated GFR > 60 POC Glucose Random Glucose 255 H Osmolality Lactic Acid Lactic Acid F/U @ 2Hr Lactic Acid F/U @ 4Hr Calcium 8.5 D Magnesium 1.5 L Total Bilirubin AST ALT Alkaline Phosphatase Total Protein Albumin Lipase Urine Color Urine Appearance Urine pH Ur Specific [place] Urine Protein Urine Glucose (UA) Urine Ketones Urine Blood Urine Nitrite Ur Leukocyte Esterase Urine RBC Urine WBC Ur Squamous Epith Cells Ur Renal Epithelial Cell Urine Bacteria Hyaline Casts Granular Casts Urine Mucus Ur Random Sodium 26.0 Ur Random Potassium 42.3 Ur Random Chloride < 20.0 Ethyl Alcohol Acetone, Qual COVID-19 (ALLEN) COVID-19 [email or web address] Com 03/15/22 03/15/22 07:14 11:17 MCV MCH MCHC RDW Plt Count MPV Immature Gran % (Auto) Neut % (Auto) Lymph % (Auto) [place] % (Auto) Eos % (Auto) Baso % (Auto) Lymph # (Auto) [place] # (Auto) Eos # (Auto) Baso # (Auto) Abs Immat Gran (auto) Absolute Neuts (auto) Absolute Nucleated RBC Nucleated RBC % (auto) Hold Purple Top VBG pH VBG pCO2 VBG pO2 VBG HCO3 VBG O2 Saturation VBG Base Excess Anion Gap Estim Creat Clear Calc Estimated GFR POC Glucose 270 H 212 H Random Glucose Osmolality Lactic Acid Lactic Acid F/U @ 2Hr Lactic Acid F/U @ 4Hr Calcium Magnesium Total Bilirubin AST ALT Alkaline Phosphatase Total Protein Albumin Lipase Urine Color Urine Appearance Urine pH Ur Specific [place] Urine Protein Urine Glucose (UA) Urine Ketones Urine Blood Urine Nitrite Ur Leukocyte Esterase Urine RBC Urine WBC Ur Squamous Epith Cells Ur Renal Epithelial Cell Urine Bacteria Hyaline Casts Granular Casts Urine Mucus Ur Random Sodium Ur Random Potassium Ur Random Chloride Ethyl Alcohol Acetone, Qual COVID-19 (ALLEN) COVID-19 Clin Com Assessment and Plan (1) DKA (diabetic ketoacidosis): Status: Resolved (2) Alcohol withdrawal: Status: Acute (3) Nausea & vomiting: Status: Acute Plan 41-year-old male with past medical history of bipolar disorder, diabetes, as well as alcohol abuse presents the hospital with nausea vomiting and abdominal pain found to have high CIWA and in alcohol withdrawal #? alcohol withdrawal -? patient with alcohol abuse, no evidence of a wound gap or ingestion of any other toxins continue ? with phenobarb protocol -? avoid Ativan as patient had anaphylactic reaction last admission -? monitor symptoms -? p.r.n. phenobarb if needed #? nausea and vomiting /abdominal pain-possible alcohol related gastritis -? likely secondary to above abd pain improving , has some nausea -? no evidence of pancreatitis -? abdominal pelvic CT shows no acute intra-abdominal process identified to explain this patient's diffuse abdominal pain -? has chronic? pancreatitis #? lactic acidosis -? secondary to above -? resolved with IV fluids #? tachycardia - likely in the setting of alcohol withdrawal - patie nt has no evidence of infection, UA is negative, has no leukocytosis, afebrile - does not have any acute respiratory symptoms, urine is negative, abdominal CT has no evidence of acute infection #? diabetes mellitus - not in DKA -? continue home medications of insulin, will add low-dose sliding scale insulin, diabetic diet ?DVT prophylaxis: Lovenox inpatient need :alcohol withdrawal Quality Stroke Does the patient have a stroke diagnosis?: No VTE Prior VTE?: No VTE Risk Level:: Medical - moderate - high VTE Device Contraindication: Treatment Not Indicated VTE Drug Contraindication: N/A - Med Ordered
[2022-03-15 16:01] LABS: Glucose, Whole Blood 184 mg/dL (60-115)
[2022-03-15 19:28] LABS: Glucose, Whole Blood 193 mg/dL (60-115)
[2022-03-15] MEDS: traZODone HCL 100 MG TABLET 200 MG PO ×2 (22:30)
[2022-03-15] MEDS: PHENobarbitaL 15 MG TABLET 45 MG PO (22:30)
[2022-03-15] MEDS: QUEtiapine Fumarate 400 MG TABLET PO (22:30)
[2022-03-15] MEDS: Zolpidem Tartrate 5 MG TABLET PO (22:30)
[2022-03-15] MEDS: Enoxaparin Sodium 40 MG/0.4 ML SYRINGE SUBCUT (22:30)
[2022-03-16 03:32] VITALS: BP 100/53; PULSE 98; RESP 17; TEMP 36.2; O2SAT 98
[2022-03-16 06:29] LABS: Anion Gap 12 (12-20); Blood Urea Nitrogen 12 mg/dL (9-16); Calcium 8.2 mg/dL (8.4-10.2); Carbon Dioxide 33 mmol/L (22-29); Chloride 97 mmol/L (96-108); Creatinine Clr Calc Pharmacy 102.2; Estimated Glomerular Filt Rate > 60; Glucose Random 79 mg/dL (60-115); Sodium 139 mmol/L (135-145)
[2022-03-16 07:17] VITALS: BP 128/84; PULSE 87; RESP 18; TEMP 36.4; O2SAT 96
[2022-03-16 07:29] LABS: Glucose, Whole Blood 36 mg/dL (60-115)
[2022-03-16] MEDS: Glucose Gel 15 GM GEL..GRAM. PO ×2 (07:31→07:41)
[2022-03-16 07:57] LABS: Glucose, Whole Blood 133 mg/dL (60-115)
--- NOTE | 2022-03-16 08:27 | P.CDIC_ITS ---
CDI Concurrent Query Documentation Clarification: PHYSICIAN'S DOCUMENTATION REQUEST Date of Query: 03/16/22826 Patient Name: Yeison Pereyra Admit Date: 03/14/22 Dear Doctor, A review of the medical record indicates additional documentation may be needed. Please review below and update the documentation accordingly. Clinical Indicators: The following diagnoses or signs and symptoms were noted in the patient record: Risk Factors/Clinical Indicators/Treatments LABS: magnesium 1.3 IV Magnesium oxide Based on the above, could you clarify in the Progress Notes the appropriate diagnosis, if significant, that supports the above abnormalities and additional evaluation, monitoring, and/or treatment rendered: * Hypomagnesemia or other etiology of lab findings * Labs indicate a diagnosis of (please specify) * Other (please specify) * Unable to determine Use of terms such as suspected, likely, concern for, or probable (associated with a specific diagnosis that is being evaluated, monitored, or treated as if it exists) are acceptable and can be coded in the inpatient setting, when documented at the time of discharge. Thank you, Breanna Araya [facility], CDIS Extension: [phone] Please use your independent medical judgment in providing your response. THIS QUERY IS PART OF THE PERMANENT MEDICAL RECORD Provider Response: Other Other Diagnosis: Hypomagnesemia.
--- NOTE | 2022-03-16 08:33 | P.CDIC_ITS ---
CDI Concurrent Query Documentation Clarification: PHYSICIAN'S DOCUMENTATION REQUEST Date of Query: 03/16/22 0833 Patient Name: Yeison Pereyra Admit Date: 03/14/22 Dear Doctor, A review of the medical record indicates additional documentation may be needed. Please review below and update the documentation accordingly. Clinical Indicators: The following diagnoses or signs and symptoms were noted in the patient record: Risk Factors/Clinical Indicators/Treatments LABS: 03/14 - sodium 129 L IV fluids Based on the above, could you clarify in the Progress Notes the appropriate diagnosis, if significant, that supports the above abnormalities and additional evaluation, monitoring, and/or treatment rendered: * Hyponatremia or other etiology of labs (resolved, poa etc.) * Labs indicate a diagnosis of (please specify) * Other (please specify) * Unable to determine Use of terms such as suspected, likely, concern for, or probable (associated with a specific diagnosis that is being evaluated, monitored, or treated as if it exists) are acceptable and can be coded in the inpatient setting, when documented at the time of discharge. Thank you, Breanna Araya [facility], CD[facility] Extension: [phone] Please use your independent medical judgment in providing your response. THIS QUERY IS PART OF THE PERMANENT MEDICAL RECORD Provider Response: Other Other Diagnosis: Hyponatremia: Possible related to alcohol use.
[2022-03-16] MEDS: PHENobarbitaL 15 MG TABLET 45 MG PO ×2 (08:37→20:31)
[2022-03-16] MEDS: Lactated Ringers 1,000 ML 100 ML IVCONT (08:37)
[2022-03-16] MEDS: Magnesium Oxide 400 MG TABLET PO ×2 (08:37→16:34)
[2022-03-16] MEDS: Escitalopram Oxalate 20 MG TABLET PO (08:38)
[2022-03-16] MEDS: cloNIDine HCL 0.2 MG TABLET PO ×2 (08:38→20:31)
[2022-03-16] MEDS: Thiamine HCL 100 MG TABLET PO (08:38)
[2022-03-16] MEDS: Folic Acid 1 MG TABLET PO (08:38)
[2022-03-16] MEDS: lamoTRIgine 100 MG TABLET 200 MG PO ×2 (08:38→20:31)
[2022-03-16 09:12] LABS: Glucose Random 111 mg/dL (60-115)
--- NOTE | 2022-03-16 10:12 | MHC.CM.PN ---
EMR REVIEWED AND DISCUSSED W/HOSPITALIST, PT REMAINS IN WITHDRAWAL AND BLOOD SUGARS ARE NOT YET STABLE, PT REMAINS ON IV FLUIDS AND PHENOBARB PROTOCOL, ANTIC PT WILL NEED CARE TEAM/RECOVERY PRIOR TO D/C, CM WILL CONT TO FOLLOW D/C NEEDS.
[2022-03-16] MEDS: Dextrose 5 % and 0.9 % NaCl 1,000 ML 80 ML IVCONT ×2 (10:13→21:26)
[2022-03-16 11:20] VITALS: BP 131/87; PULSE 92; RESP 18; TEMP 36.9; O2SAT 98
[2022-03-16 11:29] LABS: Glucose, Whole Blood 176 mg/dL (60-115)
--- NOTE | 2022-03-16 13:26 | HO.PM.IMPN ---
Subjective Subjective Date of Service: 03/16/22 Interval History: Hypoglycemia, electrolytic abnormalities. Alcohol withdrawal Review of Systems Patient still tramulous , hypoglycemia denies any chest pain or shortness of breath or abdominal pain or fever chills. With Physical Exam Vital Signs: Vital Signs: Last Vital Signs Temp 98.5 F 03/16/22 11:20 Pulse 92 03/16/22 11:20 Resp 18 03/16/22 11:20 BP 131/87 03/16/22 11:20 Pulse Ox 98 03/16/22 11:20 O2 Del Method 03/16/22 11:20 BMI result Body Mass Index 26.6 Appearance: Alert.? Oriented X3.? cvs: rrr, [id number] , no murmur res: clear to auscultation ,no rhonchii or wheezing abd: no rebound or guarding ,nt, bs present. ext pulses present , no cyanosis ,mildhand tremers. neuro: axo3 , nonfocal. Objective Data Active Medications Acetaminophen (Acetaminophen 325 Mg Tablet) 650 mg PO Q6H PRN PRN Reason: Pain, Mild (Pain Scale 1-3) Clonazepam (Clonazepam 1 Mg Tablet) 1 mg PO BID PRN PRN Reason: Anxiety Clonidine HCl (Clonidine Hcl 0.2 Mg Tablet) 0.2 mg PO BID [facility]; Protocol Last Admin: 03/16/22 08:38 Dose: 0.2 mg Documented By: JASEN Dextrose (Dextrose 50 % 25 Gm/50 Ml Syringe) 25 gm IVPUSH Q15M PRN; Protocol PRN Reason: per Hypoglycemia Standing Ord. Enoxaparin Sodium (Enoxaparin Sodium 40 Mg/0.4 Ml Syringe) 40 mg SUBCUT Q24H [facility] Last Admin: 03/15/22 22:30 Dose: 40 mg Documented By: NIMISHA Escitalopram Oxalate (Escitalopram Oxalate 20 Mg Tablet) 20 mg PO DAILY [facility] Last Admin: 03/16/22 08:38 Dose: 20 mg Documented By: JASEN Folic Acid (Folic Acid 1 Mg Tablet) 1 mg PO DAILY [facility] Last Admin: 03/16/22 08:38 Dose: 1 mg Documented By: JASEN Glucose (Glucose Gel 15 Gm Gel..Gram.) 15 gm PO Q15M PRN; Protocol PRN Reason: per Hypoglycemia Standing Ord. Last Admin: 03/16/22 07:41 Dose: 15 gm Documented By: JASEN Lactated Ringer's (Lr) 1,000 mls @ 100 mls/hr IVCONT .Q10H [facility] Last Infusion: 03/16/22 10:16 Dose: 0 mls/hr Documented By: JASEN Dextrose/Sodium Chloride (D5ns) 1,000 mls @ 80 mls/hr IVCONT .[id number] [facility] Last Admin: 03/16/22 10:13 Dose: 80 mls/hr Documented By: JASEN Insulin Glargine (Insulin Glargine,Hum.Rec.Anlog 100 Unit/Ml 10 Ml Vial) 50 unit SUBCUT BEDTIME [facility] Last Admin: 03/15/22 22:31 Dose: 50 unit Documented By: NIMISHA Insulin Human Lispro (Insulin Lispro 100 Unit/Ml 3 Ml Vial) 0 unit SUBCUT QIDACHS [facility]; Protocol Last Admin: 03/16/22 11:44 Dose: Not Given Documented By: JASEN Non-Admin Reason: No Insulin Coverage Lamotrigine (Lamotrigine 100 Mg Tablet) 200 mg PO BID [facility] Last Admin: 03/16/22 08:38 Dose: 200 mg Documented By: JASEN [facility] ([facility] 400 Mg [facility]t) [facility] Last Admin: 03/16/22 08:37 Dose: 400 mg Documented By: JASEN Morphine Sulfate (Morphine Sulfate 4 Mg/Ml Cartridge) 4 mg IVPUSH Q4H PRN; Protocol PRN Reason: Pain, Severe (Pain Scale 7-10) Ondansetron HCl (Ondansetron Hcl 4 Mg/2 Ml Vial) 4 mg IVPUSH Q8H PRN PRN Reason: Nausea and Vomiting Pharmacy Consult (Consult Rx Etoh Phenob Po Only) 1 each MISCELLANE ONCE PRN; Protocol PRN Reason: Consult order Pharmacy Consult (Consult Rx Perform Med Rec) 1 each MISCELLANE ONCE PRN PRN Reason: Consult order Phenobarbital (Phenobarbital 15 Mg Tablet) 45 mg PO BID [facility] Stop: 03/17/22 09:01 Last Admin: 03/16/22 08:37 Dose: 45 mg Documented By: JASEN Phenobarbital (Phenobarbital 30 Mg Tablet) 30 mg PO BID [facility] Stop: 03/19/22 09:01 Phenobarbital (Phenobarbital 30 Mg Tablet) 30 mg PO DAILY [facility] Stop: 03/21/22 09:01 Quetiapine Fumarate (Quetiapine Fumarate 400 Mg Tablet) 400 mg PO BEDTIME [facility] Last Admin: 03/15/22 22:30 Dose: 400 mg Documented By: NIMISHA Sodium Chloride (0.9 % Sodium Chloride Flush 3 Ml Syringe) 3 ml IVFLUSH QSHIFT [facility] Last Admin: 03/16/22 08:32 Dose: Not Given Documented By: JAESN Non-Admin Reason: IV Running Thiamine HCl (Thiamine Hcl 100 Mg Tablet) 100 mg PO DAILY [facility] Last Admin: 03/16/22 08:38 Dose: 100 mg Documented By: JASEN Trazodone HCl (Trazodone Hcl 100 Mg Tablet) 200 mg PO BEDTIME [facility] Last Admin: 03/15/22 22:30 Dose: 200 mg Documented By: NIMISHA Zolpidem Tartrate (Zolpidem Tartrate 5 Mg Tablet) 5 mg PO BEDTIME PRN PRN Reason: Sleep Last Admin: 03/15/22 22:30 Dose: 5 mg Documented By: NIMISHA Labs CBC & Chem 7: 03/15/22 06:00 03/16/22 08:30 Labs: Laboratory Results - last 24 hr 03/15/22 03/15/22 03/16/22 15:51 19:18 05:28 Anion Gap 12 Estim Creat Clear Calc 102.2 Estimated GFR > 60 POC Glucose 184 H 193 H Random Glucose 79 D Calcium 8.2 L 03/16/22 03/16/22 03/16/22 07:22 07:53 08:30 Anion Gap Estim Creat Clear Calc Estimated GFR POC Glucose 36 L* 133 H Random Glucose 111 D Calcium 03/16/22 11:14 Anion Gap Estim Creat Clear Calc Estimated GFR POC Glucose 176 H Random Glucose Calcium Microbiology Microbiology Results: Microbiology 03/14/22 15:56 Blood Culture - Preliminary Blood - Venous No growth after 24 hours. 03/14/22 15:59 Blood Culture - Preliminary Blood - Venous No growth after 24 hours. Assessment and Plan (1) Tachycardia: Status: Acute (2) Alcohol withdrawal: Status: Acute (3) Hyponatremia: Status: Acute (4) Hypokalemia: Status: Acute (5) Hypomagnesemia: Status: Acute Plan 41-year-old male with past medical history of bipolar disorder, diabetes, as well as alcohol abuse presents the hospital with nausea vomiting and abdominal pain found to have high CIWA and in alcohol withdrawal alcohol withdrawal continue ? with phenobarb protocol -? avoid Ativan as patient had anaphylactic reaction last admission -? monitor symptoms -? p.r.n. phenobarb if needed #? nausea and vomiting /abdominal pain-possible alcohol related gastritis -? likely secondary to above abd pain andnausea improving -? abdominal pelvic CT shows no acute intra-abdominal process identified to explain this patient's diffuse abdominal pain,? has chronic? pancreatitis. added omeprazole. #? lactic acidosis -? secondary to above -? resolved with IV fluids. #? tachycardia: improving- likely in the setting of alcohol withdrawal - patie nt has no evidence of infection, UA is negative, has no leukocytosis, afebrile - does not have any acute respiratory symptoms, urine is negative, abdominal CT has no evidence of acute infection #? diabetes mellitus hypoglycemia this morning given dextrose , started on d5ns. diabetic diet. The fingersticks with adjusted coverage, avoid coverage below fs 200 mg dL # Hypomagnesemia: Continue replacements Hypokalemia and so replaced. Hyponatremia: Possibly related to alcohol use. Seems to improved . ?DVT prophylaxis: Lovenox inpatient need :alcohol withdrawal, electrolytic abnormalities, hypoglycemia. Quality Stroke Does the patient have a stroke diagnosis?: No VTE Prior VTE?: No VTE Risk Level:: Medical - moderate - high VTE Device Contraindication: Treatment Not Indicated VTE Drug Contraindication: N/A - Med Ordered
[2022-03-16] MEDS: Omeprazole 20 MG CAPSULE.DR PO (14:56)
[2022-03-16 15:02] VITALS: BP 136/94; PULSE 84; RESP 20; TEMP 36.3; O2SAT 99
[2022-03-16 15:18] LABS: Glucose, Whole Blood 195 mg/dL (60-115)
[2022-03-16] MEDS: Potassium Chloride Packet 20 MEQ PACKET 40 MEQ PO (16:32)
[2022-03-16 19:20] VITALS: BP 140/80; PULSE 88; RESP 20; TEMP 36.9; O2SAT 98
[2022-03-16 19:34] LABS: Glucose, Whole Blood 230 mg/dL (60-115)
[2022-03-16] MEDS: traZODone HCL 100 MG TABLET 200 MG PO (20:31)
[2022-03-16] MEDS: QUEtiapine Fumarate 400 MG TABLET PO (20:31)
[2022-03-16] MEDS: Enoxaparin Sodium 40 MG/0.4 ML SYRINGE SUBCUT (20:32)
[2022-03-16] MEDS: Zolpidem Tartrate 5 MG TABLET PO (20:36)
[2022-03-16] MEDS: Insulin Lispro 100 UNIT/ML 3 ML VIAL SUBCUT (21:27)
[2022-03-16 23:49] VITALS: BP 102/57; PULSE 93; RESP 17; TEMP 36.2; O2SAT 95
[2022-03-17 03:20] VITALS: BP 107/54; PULSE 89; RESP 17; TEMP 36.3; O2SAT 92
[2022-03-17] MEDS: Omeprazole 20 MG CAPSULE.DR PO (05:50)
[2022-03-17 06:40] LABS: Anion Gap 12 (12-20); Blood Urea Nitrogen 9 mg/dL (9-16); Calcium 7.5 mg/dL (8.4-10.2); Carbon Dioxide 25 mmol/L (22-29); Chloride 102 mmol/L (96-108); Creatinine Clr Calc Pharmacy 112.4; Estimated Glomerular Filt Rate > 60; Glucose Random 191 mg/dL (60-115); Potassium 3.3 mmol/L (3.3-5.1); Sodium 136 mmol/L (135-145)
[2022-03-17 07:31] VITALS: BP 132/89; PULSE 83; RESP 16; TEMP 36.2; O2SAT 100
[2022-03-17 07:54] LABS: Glucose, Whole Blood 217 mg/dL (60-115)
[2022-03-17 08:04] LABS: Magnesium 1.8 mg/dL (1.6-2.6)
[2022-03-17] MEDS: Insulin Lispro 100 UNIT/ML 3 ML VIAL SUBCUT (08:39)
[2022-03-17] MEDS: PHENobarbitaL 15 MG TABLET 45 MG PO (08:39)
[2022-03-17] MEDS: Thiamine HCL 100 MG TABLET PO (08:39)
[2022-03-17] MEDS: cloNIDine HCL 0.2 MG TABLET PO (08:39)
[2022-03-17] MEDS: Escitalopram Oxalate 20 MG TABLET PO (08:40)
[2022-03-17] MEDS: lamoTRIgine 100 MG TABLET 200 MG PO (08:40)
[2022-03-17] MEDS: Magnesium Oxide 400 MG TABLET PO (08:40)
[2022-03-17] MEDS: Potassium Chloride Packet 20 MEQ PACKET PO (08:40)
[2022-03-17] MEDS: Folic Acid 1 MG TABLET PO (08:40)
[2022-03-17] MEDS: Dextrose 5 % and 0.9 % NaCl 1,000 ML 80 ML IVCONT (08:49)
--- NOTE | 2022-03-17 11:23 | PM.DS ---
DS: Providers Provider Date of Service: 03/17/22 Date of admission: 03/14/22 21:30 Primary care physician: Beena Melo MD DS: Diagnosis Discharge Diagnosis (1) Tachycardia: Status: Acute (2) Alcohol withdrawal: Status: Acute (3) Hyponatremia: Status: Acute (4) Hypokalemia: Status: Acute (5) Hypomagnesemia: Status: Acute DS: Summary Hospital Course Hospital Course: 41-year-old male with past medical history of bipolar disorder, diabetes on insulin, as well as history of alcohol abuse? presents to the hospital with complaints of abdominal pain nausea and vomiting x1 day.? Patient? was recently admitted to the hospital in January with complaint of substernal chest discomfort, was felt to be in alcohol withdrawal, started on Ativan taper but developed anaphylactic reaction, he was intubated and admitted to the ICU, patient was discharged from the hospital on 02/04.? He returns today stating abdominal pain nausea vomiting x1 day, reports that he had multiple tall drinks of alcohol on Sunday, although he reports that he usually does not drink every day.? he states abdominal pain is to, 1010, nonradiating, constant, approved with pain medications given in the ED.He denies ingesting any other toxins or any other drugs.? He reports chills with no fever, no shortness of breath, no cough, no sputum production,no chest pain, no palpitations, no abdominal pain nausea or vomiting, no diarrhea constipation, no urinary symptoms and no lower extremity edema. ? reports no skin infections. On arrival to the ED patient ? Found to have heart rate of 104, temp of 97.8 degrees, blood pressure 149/100, CIWA of 24 ?labs are found to be significant for WBC count of 7.5, hemoglobin of 15.5, hematocrit 43.9, pH of 7.42, sodium of 129, chloride of 81, anion gap 26, serum osmolality of 276, lactic acid of 4.6, which resolved after IV fluids, magnesium 1.3, lipase less than 4, UA negative, alcohol level less than 10, acetone negative, ?patient has no osmolar gap ?patient started on phenobarb protocol and will be admitted for further management. Hospital course: Patient was admitted for alcohol withdrawal, possible alcoholic gastritis-seems to be improved with supportive care hydration, phenobarb. Patient had episode of hypoglycemia but asymptomatic-subsequently patient sugars are stable, adjusted lantus to 45 units qhs and insulin regimen. Electrolytic abnormalities including hypokalemia and hypomagnesemia-repleted and resolved. Continue home magnesium replacement. Patient had mild elevated heart rate initially thought to be related to alcohol withdrawal and electrolytic abnormalities. With supportive give hydration, phenobarb and electrolyte replacement -his heart rate seems to be improved. If any new symptoms-consider outpatient workup with PCP. Patient does not want to talk to care team , strongly encouraged to follow-up outpatient with pcp and abstain from alcohol. Patient said he sure he is going to abstain from alcohol . Above management discussed with the patient in detail length he understand and in agreement with the above plan, time spent 50 minutes and 50% time spent on counseling. Significant findings: As above. Procedures performed: None. Treatment and response: As above. Complications: None. Time Spent with Patient Time attestation: Total time spent providing and/or coordinating discharge services: Discharge coordination time: Greater than 30 minutes Quality: Safe Use of Opioids Does Pt have an Active Cancer Diagnosis on the Problem List?: No Quality: Stroke Does the patient have a stroke diagnosis?: No Physical Exam Vital Signs: Vital Signs: Last Vital Signs Temp 97.2 F 03/17/22 07:31 Pulse 83 03/17/22 07:31 Resp 16 03/17/22 07:31 BP 132/89 03/17/22 07:31 Pulse Ox 100 03/17/22 07:31 O2 Del Method 03/17/22 07:31 BMI result Body Mass Index 26.6 Appearance: Alert.? Oriented X3.? not in distress.? Eyes: Pupils equal, round and reactive to light.? Sclera nonicteric.? ENT: Pharynx normal.? Moist mucous membranes. cvs: rrr, [id number] , no murmur res: clear to auscultation ,no rhonchii or wheezing abd: no rebound or guarding ,nt, bs present. ext pulses present , no cyanosis ,Gait well balanced well coordinated. neuro: axo3 , nonfocal. DS: Data Data Completed and Pending Completed studies during hospitalization [Text1]: Procedures Insertion of Endotracheal Airway into Trachea, Via Natural or Artificial Opening (01/27/22) Insertion of Infusion Device into Superior Vena Cava, Percutaneous Approach (01/27/22) Respiratory Ventilation, Less than 24 Consecutive Hours (01/27/22) Labs on day of discharge: Laboratory Results - last 24 hr 03/16/22 03/16/22 03/16/22 11:14 15:04 19:22 Sodium Potassium Chloride Carbon Dioxide Anion Gap BUN Creatinine Estim Creat Clear Calc Estimated GFR POC Glucose 176 H 195 H 230 H Random Glucose Calcium Magnesium 03/17/22 03/17/22 05:22 07:34 Sodium 136 Potassium 3.3 Chloride 102 Carbon Dioxide 25 Anion Gap 12 BUN 9 Creatinine 0.80 Estim Creat Clear Calc 112.4 Estimated GFR > 60 POC Glucose 217 H Random Glucose 191 H D Calcium 7.5 L D Magnesium 1.8 Preliminary micro results at discharge 03/14/22 15:56 Blood Culture - Preliminary Blood - Venous No growth after 48 hours. 03/14/22 15:59 Blood Culture - Preliminary Blood - Venous No growth after 48 hours. Additional Comments Additional comments: ?CT/CT abdomen pelvis wo con IMPRESSION: ? 1. No acute intra-abdominal process identified to explain the patient's diffuse abdominal pain. 2. Pancreatic parenchymal calcifications compatible sequela of chronic pancreatitis. No CT findings of acute pancreatitis. 3. Mild hepatic steatosis, significantly improved since comparison. 4. Thick-walled appearance of portions of the colon favored artifactual due to nondistention of the colon. No pericolonic inflammatory changes to suggest specific evidence of acute colitis. 5. 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 No articular surface collapse or fragmen Discharge Plan Discharge Patient Disposition: Home, Self-Care Discharge Diagnosis: alcohol withdrawal, possible alcoholic gastritis Referrals: Beena Melo MD [Primary Care Provider] - 1 Week Discharge Medications: New omeprazole 20 mg capsule,delayed release(DR/EC) 20 mg PO DAILY Qty: 30 0RF Continued (DME) FreeStyle Lite Strips Strip See Rx Instructions .Route Qty: 150 11RF Rx Instructions: Four times a day (DME) lancets [TRUEplus Lancets] 33 gauge misc See Rx Instructions .Route Qty: 200 11RF Rx Instructions: Four times a day insulin aspart U-100 [Novolog Flexpen U-100 Insulin] 100 unit/mL (3 mL) insulin pen 1 - 25 unit subcut QID Qty: 30 3RF (DME) pen needle, diabetic [BD July 2nd Gen Pen Needle] 32 gauge x 5/32 needle See Rx Instructions .MEDSUPPLY Qty: 150 4RF Rx Instructions: 5 times a day lamotrigine 200 mg tablet 1 tab PO BID insulin glargine [Lantus Solostar U-100 Insulin] 100 unit/mL (3 mL) insulin pen 50 unit subcut BEDTIME metformin 1,000 mg tablet 1 tab PO BIDWM clonazepam 1 mg tablet 1 tab PO BID PRN (Reason: Anxiety) zolpidem 5 mg tablet 1 tab PO BEDTIME PRN (Reason: Sleep) quetiapine [Seroquel] 400 mg tablet 400 mg PO BEDTIME trazodone 100 mg tablet 200 mg PO BEDTIME clonidine HCl 0.2 mg tablet 0.2 mg PO BID citalopram 40 mg tablet 40 mg PO DAILY thiamine HCl (vitamin B1) 100 mg tablet 100 mg PO DAILY folic acid 1 mg tablet 1 mg PO DAILY magnesium oxide 400 mg (241.3 mg magnesium) tablet 400 mg PO BID Discharge Orders: Discharge Order (Routine); Ordered 03/17/22 Ordered By: Jacoby Mendoza Diet: Advance to usual diet Activity on Discharge: As tolerated Stand Alone Forms: Patient Portal Discharge page Care Plan Goals: Patient was admitted for alcohol withdrawal, possible alcoholic gastritis-seems to be improved with supportive care hydration, phenobarb. Patient had episode of hypoglycemia but asymptomatic-subsequently patient sugars are stable, adjusted lantus to 45 units qhs and insulin regimen. Electrolytic abnormalities including hypokalemia and hypomagnesemia-repleted and resolved. Continue home magnesium replacement. Patient had mild elevated heart rate initially thought to be related to alcohol withdrawal and electrolytic abnormalities. With supportive give hydration, phenobarb and electrolyte replacement -his heart rate seems to be improved. If any new symptoms-consider outpatient workup with PCP. Patient does not want to talk to care team , strongly encouraged to follow-up outpatient with pcp and abstain from alcohol. Patient said he sure he is going to abstain from alcohol . Health Concerns: as above. Advise the patient if any new symptoms of chest pain or shortness of breath or palpitations or any new symptoms get evaluated in nearest emergency room. Plan of Treatment: as above. Assessment: as above. Patient Instructions: Hypokalemia (DC), Alcohol Withdrawal (DC), Hypomagnesemia (DC)
--- NOTE | 2022-03-17 12:21 | MHC.CM.PN ---
PT MEDICALLY CLEARED FOR D/C HOME SELF-CARE, CM MET W/PT TO DISCUSS ETOH TX/RECOVERY TEAM/CARE TEAM AND PT DECLINES TO MEET W/RECOVERY TEAM AND DENIES NEED FOR ETOF TX, PT WILL ARRANGE TRANSPORT.
== END 2022-03-17 14:24 | disposition home or self-care (01) | DRG 392 ==
LOC: HO.ED 21:33 → HO.EDOVER 21:41 → HO.S3 03-15 13:51
PROVIDERS: Internal Medicine; Physician Assistant; Admitting Provider Internal Medicine; Emergency Provider Emergency Medicine; PCP Internal Medicine; Visit Provider Internal Medicine
DX: K29.20 Alcoholic gastritis without bleeding (principal); E87.2 Acidosis; F10.139 Alcohol abuse with withdrawal, unspecified; E87.1 Hypo-osmolality and hyponatremia; E08.649 Diabetes mellitus due to underlying condition with hypoglycemia without coma; Y90.0 Blood alcohol level of less than 20 mg/100 ml; E83.42 Hypomagnesemia; E87.6 Hypokalemia; F31.9 Bipolar disorder, unspecified; Z88.0 Allergy status to penicillin; Z88.8 Allergy status to other drugs, medicaments and biological substances; Z79.4 Long term (current) use of insulin; Z79.84 Long term (current) use of oral hypoglycemic drugs; Z79.899 Other long term (current) drug therapy
CPT/HCPCS: 36415; 74176; 80048; 80053; 81001; 82009; 82077; 82436; 82803; 82947; 83605; 83690; 83735; 83930; 84133; 84300; 85025; 87040; 87635; 93005; 96361; 96374; 96375; 99285; J1650; J1956; J2270; J2405; J2560; J3475

== ENCOUNTER 2022-05-20 20:03 | Inpatient (IN) | payer OTHER, SELFPAY ==
--- NOTE | ~2022-05-20 | XR_ITS ---
EXAMINATION: XR CHEST CLINICAL INFORMATION: Postprocedure IJ COMPARISON: 01/28/2022 TECHNIQUE: Frontal view of the chest was obtained. FINDINGS: Right IJ central line tip lies in the region of the cavoatrial junction. The lungs are hypoinflated and appear clear without focal consolidation. No evidence of pneumothorax, pleural effusion, or pulmonary edema. The cardiomediastinal contour is unremarkable. No acute osseous findings are seen. XR/XR chest 1V IMPRESSION: Right IJ central line tip in the region of the cavoatrial junction.
[2022-05-20 20:10] VITALS: BP 112/83; BP 140/82; PULSE 107; PULSE 112; RESP 22; O2SAT 98; O2SAT 99; BMI 21.9
[2022-05-20 20:15] LABS: Glucose, Whole Blood 481 mg/dL (60-115)
--- NOTE | 2022-05-20 20:47 | PC.NURSE ---
bp cuff is with a inaccurage bp cuff size, correct size is now where in the ed, dining service supervisor called to obtain the reg size cuff. temp difficult to get.
[2022-05-20 21:14] LABS: MANUAL DIFF FLAG NO
[2022-05-20 21:16] LABS: Basophils Percent Auto 0.4 % (0-2); Hematocrit 41.7 % (42.0-52.0); Hemoglobin 15.1 g/dl (14.0-18.0); Imm Gran Pct Auto 1.2 % (0.0-0.4); Lymphocytes Absolute Auto 0.7 X10*3/uL (1.2-4.9); Lymphocytes Percent Auto 8.2 % (20-40); Mean Corpuscular HGB Conc 36.2 g/dl (31.0-36.0); Mean Corpuscular Hemoglobin 30.1 pg (27.0-33.0); Mean Corpuscular Volume 83.2 fL (80.0-98.0); Mean Platelet Volume 9.5 fL (9.4-12.4); Monocytes Absolute Auto 0.7 X10*3/uL (0.1-1.2); Monocytes Percent Auto 7.8 % (2-11); Neutrophils Absolute Auto 6.9 x10*3/uL (2.0-8.3); Neutrophils Percent Auto 82.4 % (45-73); Platelet Count 155 X10*3/uL (160-400); Red Blood Count 5.01 X10*6/uL (4.60-5.80); Red Cell Distribution Width 13.2 % (11.0-16.0); White Blood Count 8.4 X10*3/uL (4.8-10.8)
--- NOTE | 2022-05-20 21:19 | ED_ITS ---
HPI - General Adult General Chief complaint: General Medical Stated complaint: Hyperglycemia Time Seen by Provider: 05/20/22 20:35 Source: patient Mode of arrival: ambulatory History of Present Illness HPI narrative: 41-year-old male states that he has been having frequent fluctuations in his blood sugar control over the past 2 weeks and states that today he just began feeling much worse. He denies any shortness of breath, chest pain/palpitations, nausea or vomiting. Related Data Home Medications Medication Instructions Recorded Confirmed clonidine HCl 0.2 mg tablet 0.2 mg PO BID 11/11/20 03/14/22 quetiapine 400 mg tablet (Seroquel) 400 mg PO BEDTIME 11/11/20 03/14/22 trazodone 100 mg tablet 200 mg PO BEDTIME 11/11/20 03/14/22 insulin glargine 100 unit/mL (3 50 unit subcut BEDTIME 01/28/22 03/14/22 mL) subcutaneous pen (Lantus Solostar U-100 Insulin) lamotrigine 200 mg tablet 1 tab PO BID 01/28/22 03/14/22 metformin 1,000 mg tablet 1 tab PO BIDWM 01/28/22 03/14/22 citalopram 40 mg tablet 40 mg PO DAILY 02/08/22 03/14/22 folic acid 1 mg tablet 1 mg PO DAILY 02/08/22 03/14/22 magnesium oxide 400 mg (241.3 mg 400 mg PO BID 02/08/22 03/14/22 magnesium) tablet thiamine HCl (vitamin B1) 100 mg 100 mg PO DAILY 02/08/22 03/14/22 tablet clonazepam 1 mg tablet 1 tab PO BID PRN Anxiety 03/14/22 03/14/22 zolpidem 5 mg tablet 1 tab PO BEDTIME PRN Sleep 03/14/22 03/14/22 Previous Rx's Medication Instructions Recorded lancets 33 gauge (TRUEplus Lancets) #200 ea 03/08/21 insulin aspart U-100 100 unit/mL 1 - 25 unit (0.01 - 0.25 mL) 10/31/21 (3 mL) subcutaneous pen (Novolog subcut QID #30 mL Flexpen U-100 Insulin aspart) pen needle, diabetic 32 gauge x #150 ea 02/07/22 (BD July 2nd Gen Pen Needle) omeprazole 20 mg capsule,delayed 20 mg PO DAILY #30 caps 03/17/22 release blood sugar diagnostic (FreeStyle #150 ea 03/20/22 Lite Strips) Allergies Allergy/AdvReac Type Severity Reaction Status Date / Time clonazepam Allergy Unknown Unknown Verified 02/08/22 09:46 meropenem [MEROPENEM] Allergy Unknown SWELLING Verified 02/08/22 09:46 penicillin G procaine Allergy Unknown itching Verified 02/08/22 09:46 Penicillins [PENICILLINS] Allergy Unknown SWELLING Verified 02/08/22 09:46 lorazepam [From Ativan] Allergy Anaphylaxis Verified 02/08/22 09:46 Review of Systems Review of Systems: Pertinent positives and negatives as stated in HPI and 10 point review of systems is otherwise negative. 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 Mother Diabetes Social History Social History Household Members: None Housing: Apartment Do you presently have visiting nurse or other home services: No Alcohol intake: former Patient Tobacco Use Status: Never used Tobacco Advance Directives: No service: Yes Current occupational status: employed Physical Exam ED Vital Signs: Vital Signs - 24 hr 05/20/22 20:10 Pulse Rate 107 H Respiratory Rate 22 H Blood Pressure 112/83 Pulse Oximetry 98 Oxygen Delivery Method Room Air BMI result Body Mass Index 21.9 VITAL SIGNS: Reviewed. GENERAL: Well developed, well nourished, in no acute distress. HEAD: Normocephalic/atraumatic EYES: PERRLA, EOMI EARS: Ext canals without abnormality OROPHARYNX: no oral lesions noted, posterior pharynx clear, dry mucosa with fruity odor NECK: Supple, no adenopathy LUNGS: Normal breath sounds, tachypnea present. SpO2<98> CARDIOVASCULAR: Regular rate and rhythm without noted murmurs, no JVD or lower extremity edema. ABDOMEN: Soft, non-tender, non-distended with bowel sounds. MUSCULOSKELETAL: No tenderness, deformities, or effusions noted on gross inspection. EXTREMITIES: No cyanosis, clubbing or edema. SKIN: Inspection of the skin reveals no rashes NEUROLOGIC: Alert and oriented x 4. Strength and sensation to light touch were grossly intact x 4. Course Course Course Narrative: 41-year-old male with history and clinical presentation consistent with DKA. Will start IV fluid bolusing, administer insulin subQ was start insulin drip. On review of all lab results findings are consistent with acute DKA, patient will continue with IV fluid hydration and insulin drip to be started with initial administration subcu insulin. 2210: I discussed the case with Dr. Soto who accepts admission. Procedures EJ/Peripheral Line Arm R: Time Out Performed: No Skin Cleansed in Sterile Fashion: Yes Size (gauge): 18 IV Secured and Dressing Applied: Yes Patient Tolerated Procedure: well and no complications Additional Comments: Ultrasound-guided Medical Decision Making Lab Data Result diagrams: 05/20/22 21:11 05/20/22 21:11 Labs: Lab Results 05/20/22 05/20/22 05/20/22 Range/Units 20:12 21:11 21:11 WBC 8.4 (4.8-10.8) X10*3/uL RBC 5.01 (4.60-5.80) X10*6/uL Hgb 15.1 (14.0-18.0) g/dl Hct 41.7 L (42.0-52.0) % MCV 83.2 (80.0-98.0) fL MCH 30.1 (27.0-33.0) pg MCHC 36.2 H (31.0-36.0) g/dl RDW 13.2 (11.0-16.0) % Plt Count 155 L (160-400) X10*3/uL MPV 9.5 (9.4-12.4) fL Immature Gran % (Auto) 1.2 H (0.0-0.4) % Neut % (Auto) 82.4 H (45-73) % Lymph % (Auto) 8.2 L (20-40) % Carolina % (Auto) 7.8 (2-11) % Eos % (Auto) 0.0 (0-4) % Baso % (Auto) 0.4 (0-2) % Lymph # (Auto) 0.7 L (1.2-4.9) X10*3/uL [place] # (Auto) 0.7 (0.1-1.2) X10*3/uL Eos # (Auto) 0.0 (0.0-0.4) X10*3/uL Baso # (Auto) 0.0 (0.0-0.2) X10*3/uL Abs Immat Gran (auto) 0.10 H (0.00-0.03) X10*3/uL Absolute Neuts (auto) 6.9 (2.0-8.3) x10*3/uL Absolute Nucleated RBC 0.000 (0.0-0.012) X10*3/uL Nucleated RBC % (auto) 0.0 (0.0-0.2) /100WBC Sodium 124 L (135-145) mmol/L Potassium 4.3 D (3.3-5.1) mmol/L Chloride 79 L D (96-108) mmol/L Carbon Dioxide 6 L* D (22-29) mmol/L Anion Gap 43 H (12-20) BUN 38 H D (9-16) mg/dL Creatinine 3.54 H (0.5-1.4) mg/dL Estim Creat Clear Calc 24.4 Estimated GFR 19 POC Glucose 481 H* (60-115) mg/dL Random Glucose 481 H* (60-115) mg/dL Calcium 9.1 D (8.4-10.2) mg/dL Total Bilirubin 0.9 (0.0-1.0) mg/dL AST 83 H (5-37) U/L ALT 83 H (0-40) U/L Alkaline Phosphatase 224 H D (39-117) U/L Total Protein 8.8 H D (6.5-8.0) g/dL Albumin 5.0 D (3.5-5.0) g/dL Acetone, Qual Moderate H (Negative) 05/20/22 Range/Units 21:51 WBC (4.8-10.8) X10*3/uL RBC (4.60-5.80) X10*6/uL Hgb (14.0-18.0) g/dl Hct (42.0-52.0) % MCV (80.0-98.0) fL MCH (27.0-33.0) pg MCHC (31.0-36.0) g/dl RDW (11.0-16.0) % Plt Count (160-400) X10*3/uL MPV (9.4-12.4) fL Immature Gran % (Auto) (0.0-0.4) % Neut % (Auto) (45-73) % Lymph % (Auto) (20-40) % Carolina % (Auto) (2-11) % Eos % (Auto) (0-4) % Baso % (Auto) (0-2) % Lymph # (Auto) (1.2-4.9) X10*3/uL Carolina # (Auto) (0.1-1.2) X10*3/uL Eos # (Auto) (0.0-0.4) X10*3/uL Baso # (Auto) (0.0-0.2) X10*3/uL Abs Immat Gran (auto) (0.00-0.03) X10*3/uL Absolute Neuts (auto) (2.0-8.3) x10*3/uL Absolute Nucleated RBC (0.0-0.012) X10*3/uL Nucleated RBC % (auto) (0.0-0.2) /100WBC Sodium (135-145) mmol/L Potassium (3.3-5.1) mmol/L Chloride (96-108) mmol/L Carbon Dioxide (22-29) mmol/L Anion Gap (12-20) BUN (9-16) mg/dL Creatinine (0.5-1.4) mg/dL Estim Creat Clear Calc Estimated GFR POC Glucose 447 H* (60-115) mg/dL Random Glucose (60-115) mg/dL Calcium (8.4-10.2) mg/dL Total Bilirubin (0.0-1.0) mg/dL AST (5-37) U/L ALT (0-40) U/L Alkaline Phosphatase (39-117) U/L Total Protein (6.5-8.0) g/dL Albumin (3.5-5.0) g/dL Acetone, Qual (Negative) Critical Care Time Critical Care Time Critical Care Time: Yes Total Critical Care Time: 30 Attestation: I personally attest to this time spent taking care of the patient. Discharge Plan Discharge Clinical Impression: DKA (diabetic ketoacidosis), Dehydration Patient Disposition: Admitted As Inpatient Prescriptions: No Action (DME) lancets [TRUEplus Lancets] 33 gauge misc See Rx Instructions .Route Qty: 200 11RF Rx Instructions: Four times a day insulin aspart U-100 [Novolog Flexpen U-100 Insulin] 100 unit/mL (3 mL) insulin pen 1 - 25 unit subcut QID Qty: 30 3RF (DME) pen needle, diabetic [BD July 2nd Gen Pen Needle] 32 gauge x 5/32 needle See Rx Instructions .MEDSUPPLY Qty: 150 4RF Rx Instructions: 5 times a day (DME) FreeStyle Lite Strips Strip See Rx Instructions .Route Qty: 150 11RF Rx Instructions: Four times a day lamotrigine 200 mg tablet 1 tab PO BID insulin glargine [Lantus Solostar U-100 Insulin] 100 unit/mL (3 mL) insulin pen 50 unit subcut BEDTIME metformin 1,000 mg tablet 1 tab PO BIDWM clonazepam 1 mg tablet 1 tab PO BID PRN (Reason: Anxiety) zolpidem 5 mg tablet 1 tab PO BEDTIME PRN (Reason: Sleep) omeprazole 20 mg capsule,delayed release(DR/EC) 20 mg PO DAILY Qty: 30 0RF quetiapine [Seroquel] 400 mg tablet 400 mg PO BEDTIME trazodone 100 mg tablet 200 mg PO BEDTIME clonidine HCl 0.2 mg tablet 0.2 mg PO BID citalopram 40 mg tablet 40 mg PO DAILY thiamine HCl (vitamin B1) 100 mg tablet 100 mg PO DAILY folic acid 1 mg tablet 1 mg PO DAILY magnesium oxide 400 mg (241.3 mg magnesium) tablet 400 mg PO BID
[2022-05-20 21:23] LABS: Acetone, serum QL Moderate (Negative)
[2022-05-20] MEDS: 0.9 % Sodium Chloride 2,000 ML 999 ML IV (21:24)
--- NOTE | 2022-05-20 21:28 | PC.NURSE ---
difficult iv stick, iv obtained by dr cardenas, 18 right ac via ultrasound, 2l ns infusing wide open and on pressure bag per provider.
[2022-05-20 21:55] LABS: Alanine Aminotransferase 83 U/L (0-40); Anion Gap 43 (12-20); Aspartate Amino Transferase 83 U/L (5-37); Bilirubin Total 0.9 mg/dL (0.0-1.0); Blood Urea Nitrogen 38 mg/dL (9-16); Calcium 9.1 mg/dL (8.4-10.2); Carbon Dioxide 6 mmol/L (22-29); Chloride 79 mmol/L (96-108); Creatinine Clr Calc Pharmacy 24.4; Estimated Glomerular Filt Rate 19; Glucose Random 481 mg/dL (60-115); Potassium 4.3 mmol/L (3.3-5.1); Sodium 124 mmol/L (135-145); Total Protein 8.8 g/dL (6.5-8.0)
[2022-05-20 21:56] LABS: Alkaline Phosphatase 224 U/L (39-117)
[2022-05-20] MEDS: Insulin Lispro 100 UNIT/ML 3 ML VIAL 10 UNIT SUBCUT (22:04)
[2022-05-20] MEDS: Insulin Regular/NS 100 UNIT/100 ML PLAST..BAG IVCONT (22:05)
[2022-05-20 22:07] LABS: Glucose, Whole Blood 447 mg/dL (60-115)
--- NOTE | 2022-05-20 22:21 | PC.NURSE ---
pt has only one iv access at this time. unable to start d5 .45ns at this time. pt is a difficult stick. unable to obtain cultures and provider made aware. multiple attempts for iv by mult rns.
[2022-05-20 22:32] LABS: COVID-19 Test Negative (Negative); IDNOW Serial# 08D9AD1C; Influenza A Negative (Negative); Influenza B2 Negative (Negative)
[2022-05-20 23:00] VITALS: BP 118/89; PULSE 111; RESP 34; O2SAT 100
[2022-05-20 23:08] VITALS: BP 118/89; PULSE 112; RESP 30; TEMP 36.3; O2SAT 98
[2022-05-20 23:18] LABS: Glucose, Whole Blood 343 mg/dL (60-115)
[2022-05-20 23:38] LABS: Ethanol < 10 mg/dL; Magnesium 2.3 mg/dL (1.6-2.6); Phosphorus 4.8 mg/dL (2.7-4.5)
[2022-05-21] VITALS (22 sets, daily range): BP systolic 111–144; BP diastolic 80–100; PULSE 96–118; RESP 18–116; TEMP 36.4–37.1; O2SAT 95–100; BMI 23.8
[2022-05-21 00:03] LABS: Glucose, Whole Blood 269 mg/dL (60-115)
[2022-05-21 00:05] LABS: Venous Blood Gas Refer to POC result
[2022-05-21 00:05] LABS: VBG Base Excess -17.3 mmol/L; VBG HCO3 7 mmol/L (22-26); VBG pCO2 18 mmHg; VBG pH 7.21 (7.32-7.43); VBG pO2 57 mmHg
--- NOTE | 2022-05-21 00:09 | PC.NURSE ---
all labs obtained from the tlc , xray done to confirm placement. poc 269.
--- NOTE | 2022-05-21 00:14 | PC.NURSE ---
Dr Heredia made aware of poc at 0000 269 with the insulin drip at 0.1 unit/hr. . verbal orders to hold fluids at this time till labs come back. Insulin drip to remain at current rate of 0.1un/hr and not to adjust to 5 units/hr. pt denies pain. alert and oriented x3 no s/s of resp distress. pt made aware of the need to give urine and will attempt at this time. pt has had poor po intake.
[2022-05-21 00:47] LABS: Appearance Urine Cloudy; Color Urine Dark Yellow; Glucose Urine UA >=1000 mg/dL (Negative); Leukocyte Esterase Urine Negative (Negative); Nitrite Urine Negative (Negative); Specific Gravity - Urine 1.025 (1.005-1.025); UMIC TRIGGER UACC YES; Urine Blood Large (3+) (Negative); Urine Ketones 40 mg/dL (Negative); Urine Protein 300 (3+) mg/dL (Neg-Trace)
[2022-05-21 00:59] LABS: Bacteria Urine None Seen (None Seen); RBC Urine >20 /HPF (0-2); Squamous Epithelial Cell Urine 0-2 /HPF (0-2); WBC Urine 0-5 /HPF (0-5)
[2022-05-21 01:03] LABS: Amphetamine Screen Urine Not Detected (Not Detect); Barbiturates, Urine Not Detected (Not Detect); Benzodiazepines Screen Urine Not Detected (Not Detect); Cannabinoid Screen Urine Not Detected (Not Detect); Cocaine Screen Urine Not Detected (Not Detect); Fentanyl, urine Not Detected (Not Detect); Opiate Screen Urine Not Detected (Not Detect); Phencyclidine Screen Urine Not Detected (Not Detect)
[2022-05-21 01:19] LABS: Glucose, Whole Blood 245 mg/dL (60-115)
--- NOTE | 2022-05-21 01:32 | P.HPCC_ITS ---
History of Present Illness Date of Service: 05/21/22 Attending physician on admission: Natalie Soto Chief Complaint: Weakness 41-year-old and type 1 diabetic presents with progressive weakness and marked hyperglycemia and denies being noncompliant with his insulin and came in with acute on chronic renal failure with significant pseudo hyponatremia and evidence of diabetic ketoacidosis with serum bicarb of 6 and of course hyperpneic with pCO2 of 18 as a secondary respiratory alkalosis no apparent source of infection no acute cardiac issues and normal EKG but he did have evidence of elevated CPK indicating of some rhabdomyolysis and he was treated initially with normal saline for volume replacement then placed on an aggressive continuous IV drip of Lasix of saline along with an insulin drip and very slowly over 24 hour. Has a gradually improving negative base excess initially at 17 now down to approximately 8 and a creatinine down from 3-1/2 down to about 1.8 at this point he actually might have enough chronic renal disease to require oral bicarb replacement in addition to this treatment but he has been eating he has no upper GI issues and he will be treated here without removing the the insulin drip until we have a serum bicarb at least exceeding 20 Review of Systems Review of Systems: Yes all other systems are reviewed and are negative PMFSH Past Medical History Medical History Bacteremia Bipolar disorder 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 Mother Diabetes Surgical History Surgical History No pertinent past surgical history Social History Social History Household Members: None Housing: Apartment Do you presently have visiting nurse or other home services: No Alcohol intake: former Patient Tobacco Use Status: Never used Tobacco Use of substances other than those prescribed or required for medical reasons: No Currently Displaying Signs/Symptoms of Drug Intoxication Withdrawal: No Have you been hit, kicked, punched, or otherwise hurt by someone within the past year? If so, by whom?: No Do you feel safe in your current relationship?: No Current Relationship Is there a partner from a previous relationship who is making you feel unsafe now?: No Are you made to feel afraid or neglected: No Advance Directives: No Do you have thoughts of harming others: None Do you have a plan to hurt others: No Plan Recently lost weight without trying: Yes How much weight loss: 24-33 pounds Eating poorly because of decreased appetite: Yes Nutrition screen score: 6 Nutrition Risks: Poor intake 0-25% >4 days Poor oral hygiene: No service: Yes Current occupational status: employed Meds Allergies Allergy/AdvReac Type Severity Reaction Status Date / Time clonazepam Allergy Unknown Unknown Verified 02/08/22 09:46 meropenem [MEROPENEM] Allergy Unknown SWELLING Verified 02/08/22 09:46 penicillin G procaine Allergy Unknown itching Verified 02/08/22 09:46 Penicillins [PENICILLINS] Allergy Unknown SWELLING Verified 02/08/22 09:46 lorazepam [From Ativan] Allergy Anaphylaxis Verified 02/08/22 09:46 Active Medications: Current Medications Dextrose (Dextrose 50 % 25 Gm/50 Ml Syringe) 25 gm IVPUSH Q30M PRN PRN Reason: BG < 70 Dextrose (Dextrose 50 % 25 Gm/50 Ml Syringe) 25 gm IVPUSH Q30M PRN PRN Reason: Nursing Actions in Insulin Infusion Protocol Potassium Chloride/Sodium Chloride (Kcl 20 Meq In 0.9 % Sodium Chl) 20 meq in 1,000 mls @ 150 mls/hr IVCONT .Q6H40M MAINOR Insulin Human Regular (Myxredlin) 100 unit in 100 mls @ 5 mls/hr IVCONT .Q20H MAINOR; Protocol Home Medications Medication Instructions Recorded Confirmed Last Taken Type clonidine HCl 0.2 mg tablet 0.2 mg PO BID 11/11/20 05/21/22 Unknown History quetiapine 400 mg tablet (Seroquel) 400 mg PO BEDTIME 11/11/20 05/21/22 Unknown History trazodone 100 mg tablet 200 mg PO BEDTIME 11/11/20 05/21/22 Unknown History insulin glargine 100 unit/mL (3 50 unit subcut BEDTIME 01/28/22 05/21/22 Unknown History mL) subcutaneous pen (Lantus Solostar U-100 Insulin) lamotrigine 200 mg tablet 1 tab PO BID 01/28/22 05/21/22 Unknown History citalopram 40 mg tablet 40 mg PO DAILY 02/08/22 05/21/22 Unknown History folic acid 1 mg tablet 1 mg PO DAILY 02/08/22 05/21/22 Unknown History magnesium oxide 400 mg (241.3 mg 400 mg PO BID 02/08/22 05/21/22 Unknown History magnesium) tablet thiamine HCl (vitamin B1) 100 mg 100 mg PO DAILY 02/08/22 05/21/22 Unknown History tablet zolpidem 5 mg tablet 1 tab PO BEDTIME PRN Sleep 03/14/22 05/21/22 Unknown History famotidine 20 mg tablet (Pepcid AC) 20 mg PO DAILY 05/21/22 05/21/22 Unknown History quetiapine 400 mg tablet,extended 1 tab PO DAILY 05/21/22 05/21/22 Unknown History release 24 hr Physical Exam Vital Signs: Vital Signs: Last Vital Signs Temp 97.4 F 05/20/22 23:08 Pulse 112 H 05/20/22 23:08 Resp 116 H 05/21/22 00:00 BP 120/91 H 05/21/22 00:00 Pulse Ox 100 05/21/22 00:00 O2 Del Method 05/21/22 00:00 BMI result Body Mass Index 21.9 Stable vital signs never oliguric nonfocal neurologically Cardiac exam normal S1 normal S2 no gallops no neck vein distension and good bilateral carotid upstrokes Abdomen soft with no nausea no tenderness no organomegaly Chest by chest x-ray perfectly clear and central line from right internal jugular vein to the right atrium Skin intact Results Labs CBC and Chem 7: 05/20/22 21:11 05/21/22 13:57 Labs: Laboratory Results - last 24 hr 05/20/22 05/20/22 05/20/22 20:12 21:11 21:11 MCV 83.2 MCH 30.1 MCHC 36.2 H RDW 13.2 Plt Count 155 L MPV 9.5 Immature Gran % (Auto) 1.2 H Neut % (Auto) 82.4 H Lymph % (Auto) 8.2 L Sampson % (Auto) 7.8 Eos % (Auto) 0.0 Baso % (Auto) 0.4 Lymph # (Auto) 0.7 L Sampson # (Auto) 0.7 Eos # (Auto) 0.0 Baso # (Auto) 0.0 Abs Immat Gran (auto) 0.10 H Absolute Neuts (auto) 6.9 Absolute Nucleated RBC 0.000 Nucleated RBC % (auto) 0.0 VBG pH VBG pCO2 VBG pO2 VBG HCO3 VBG O2 Saturation VBG Base Excess Anion Gap 43 H Estim Creat Clear Calc 24.4 Estimated GFR 19 POC Glucose 481 H* Random Glucose 481 H* Lactic Acid Calcium 9.1 D Phosphorus 4.8 H Magnesium 2.3 Total Bilirubin 0.9 AST 83 H ALT 83 H Alkaline Phosphatase 224 H D Total Protein 8.8 H D Albumin 5.0 D Urine Color Urine Appearance Urine pH Ur Specific [place] Urine Protein Urine Glucose (UA) Urine Ketones Urine Blood Urine Nitrite Ur Leukocyte Esterase Urine RBC Urine WBC Ur Squamous Epith Cells Urine Bacteria Hyaline Casts Urine Opiates Screen Urine Fentanyl Screen Ur Barbiturates Screen Ur Phencyclidine Scrn Ur Amphetamines Screen U Benzodiazepines Scrn Urine Cocaine Screen U Marijuana (THC) Screen Ethyl Alcohol < 10 Acetone, Qual Moderate H COVID-19 (ALLEN) COVID-19 Clin Com Influenza Type A (VICK) Influenza Type B (VICK) Influenza A & B Note 05/20/22 05/20/22 05/20/22 21:51 22:02 22:02 MCV MCH MCHC RDW Plt Count MPV Immature Gran % (Auto) Neut % (Auto) Lymph % (Auto) Sampson % (Auto) Eos % (Auto) Baso % (Auto) Lymph # (Auto) Sampson # (Auto) Eos # (Auto) Baso # (Auto) Abs Immat Gran (auto) Absolute Neuts (auto) Absolute Nucleated RBC Nucleated RBC % (auto) VBG pH VBG pCO2 VBG pO2 VBG HCO3 VBG O2 Saturation VBG Base Excess Anion Gap Estim Creat Clear Calc Estimated GFR POC Glucose 447 H* Random Glucose Lactic Acid 1.0 Calcium Phosphorus Magnesium Total Bilirubin AST ALT Alkaline Phosphatase Total Protein Albumin Urine Color Urine Appearance Urine pH Ur Specific [place] Urine Protein Urine Glucose (UA) Urine Ketones Urine Blood Urine Nitrite Ur Leukocyte Esterase Urine RBC Urine WBC Ur Squamous Epith Cells Urine Bacteria Hyaline Casts Urine Opiates Screen Urine Fentanyl Screen Ur Barbiturates Screen Ur Phencyclidine Scrn Ur Amphetamines Screen U Benzodiazepines Scrn Urine Cocaine Screen U Marijuana (THC) Screen Ethyl Alcohol Acetone, Qual COVID-19 (ALLEN) COVID-19 Clin Com Influenza Type A (VICK) Negative Influenza Type B (VICK) Negative Influenza A & B Note See Note 05/20/22 05/20/22 05/20/22 22:02 23:13 23:59 MCV MCH MCHC RDW Plt Count MPV Immature Gran % (Auto) Neut % (Auto) Lymph % (Auto) Sampson % (Auto) Eos % (Auto) Baso % (Auto) Lymph # (Auto) Sampson # (Auto) Eos # (Auto) Baso # (Auto) Abs Immat Gran (auto) Absolute Neuts (auto) Absolute Nucleated RBC Nucleated RBC % (auto) VBG pH 7.21 L VBG pCO2 18 VBG pO2 57 VBG HCO3 7 L VBG O2 Saturation 85.0 VBG Base Excess -17.3 Anion Gap Estim Creat Clear Calc Estimated GFR POC Glucose 343 H Random Glucose Lactic Acid Calcium Phosphorus Magnesium Total Bilirubin AST ALT Alkaline Phosphatase Total Protein Albumin Urine Color Urine Appearance Urine pH Ur Specific [place] Urine Protein Urine Glucose (UA) Urine Ketones Urine Blood Urine Nitrite Ur Leukocyte Esterase Urine RBC Urine WBC Ur Squamous Epith Cells Urine Bacteria Hyaline Casts Urine Opiates Screen Urine Fentanyl Screen Ur Barbiturates Screen Ur Phencyclidine Scrn Ur Amphetamines Screen U Benzodiazepines Scrn Urine Cocaine Screen U Marijuana (THC) Screen Ethyl Alcohol Acetone, Qual COVID-19 (ALLEN) Negative COVID-19 Clin Com See Note Influenza Type A (VICK) Influenza Type B (VICK) Influenza A & B Note 05/21/22 05/21/22 05/21/22 00:00 00:41 00:41 MCV MCH MCHC RDW Plt Count MPV Immature Gran % (Auto) Neut % (Auto) Lymph % (Auto) Sampson % (Auto) Eos % (Auto) Baso % (Auto) Lymph # (Auto) Sampson # (Auto) Eos # (Auto) Baso # (Auto) Abs Immat Gran (auto) Absolute Neuts (auto) Absolute Nucleated RBC Nucleated RBC % (auto) VBG pH VBG pCO2 VBG pO2 VBG HCO3 VBG O2 Saturation VBG Base Excess Anion Gap Estim Creat Clear Calc Estimated GFR POC Glucose 269 H Random Glucose Lactic Acid Calcium Phosphorus Magnesium Total Bilirubin AST ALT Alkaline Phosphatase Total Protein Albumin Urine Color Dark Yellow Urine Appearance Cloudy Urine pH 5.0 Ur Specific [place] 1.025 Urine Protein 300 (3+) H Urine Glucose (UA) >=1000 H Urine Ketones 40 Urine Blood Large (3+) H Urine Nitrite Negative Ur Leukocyte Esterase Negative Urine RBC >20 H Urine WBC 0-5 Ur Squamous Epith Cells 0-2 Urine Bacteria None Seen Hyaline Casts 11-20 Urine Opiates Screen Not Detected Urine Fentanyl Screen Not Detected Ur Barbiturates Screen Not Detected Ur Phencyclidine Scrn Not Detected Ur Amphetamines Screen Not Detected U Benzodiazepines Scrn Not Detected Urine Cocaine Screen Not Detected U Marijuana (THC) Screen Not Detected Ethyl Alcohol Acetone, Qual COVID-19 (ALLEN) COVID-19 Clin Com Influenza Type A (VICK) Influenza Type B (VICK) Influenza A & B Note 05/21/22 01:15 MCV MCH MCHC RDW Plt Count MPV Immature Gran % (Auto) Neut % (Auto) Lymph % (Auto) Sampson % (Auto) Eos % (Auto) Baso % (Auto) Lymph # (Auto) Sampson # (Auto) Eos # (Auto) Baso # (Auto) Abs Immat Gran (auto) Absolute Neuts (auto) Absolute Nucleated RBC Nucleated RBC % (auto) VBG pH VBG pCO2 VBG pO2 VBG HCO3 VBG O2 Saturation VBG Base Excess Anion Gap Estim Creat Clear Calc Estimated GFR POC Glucose 245 H Random Glucose Lactic Acid Calcium Phosphorus Magnesium Total Bilirubin AST ALT Alkaline Phosphatase Total Protein Albumin Urine Color Urine Appearance Urine pH Ur Specific [place] Urine Protein Urine Glucose (UA) Urine Ketones Urine Blood Urine Nitrite Ur Leukocyte Esterase Urine RBC Urine WBC Ur Squamous Epith Cells Urine Bacteria Hyaline Casts Urine Opiates Screen Urine Fentanyl Screen Ur Barbiturates Screen Ur Phencyclidine Scrn Ur Amphetamines Screen U Benzodiazepines Scrn Urine Cocaine Screen U Marijuana (THC) Screen Ethyl Alcohol Acetone, Qual COVID-19 (ALLEN) COVID-19 Clin Com Influenza Type A (VICK) Influenza Type B (VICK) Influenza A & B Note Imaging Radiologist's Impressions: Impressions Chest X-Ray 05/20/22 23:57 IMPRESSION: Right IJ central line tip in the region of the cavoatrial junction. Assessment and Plan (1) DKA (diabetic ketoacidosis): Status: Acute (2) Dehydration: Status: Acute (3) Hypomagnesemia: Status: Acute (4) Hypokalemia: Status: Acute (5) Hyponatremia: Status: Acute (6) Tachycardia: Status: Acute (7) Acidosis, lactic: Status: Acute (8) Renal failure (ARF), acute on chronic: Status: Acute (9) Hypophosphatemia: Status: Acute Plan So a continue to administer calculated and the high-dose volume replacement following electrolytes every 3 hours and continued IV insulin drip
[2022-05-21 02:19] LABS: Venous Blood Gas Refer to POC result
[2022-05-21 02:20] LABS: VBG Base Excess -16.5 mmol/L; VBG HCO3 8 mmol/L (22-26); VBG pCO2 19 mmHg; VBG pH 7.22 (7.32-7.43); VBG pO2 48 mmHg
[2022-05-21 02:20] LABS: Glucose, Whole Blood 216 mg/dL (60-115)
[2022-05-21 02:46] LABS: Anion Gap 41 (12-20); Blood Urea Nitrogen 44 mg/dL (9-16); Calcium 9.3 mg/dL (8.4-10.2); Carbon Dioxide 6 mmol/L (22-29); Chloride 83 mmol/L (96-108); Creatinine Clr Calc Pharmacy 27.9; Estimated Glomerular Filt Rate 22; Glucose Random 186 mg/dL (60-115); Potassium 3.5 mmol/L (3.3-5.1); Sodium 126 mmol/L (135-145)
[2022-05-21 03:07] LABS: Glucose, Whole Blood 180 mg/dL (60-115)
[2022-05-21] MEDS: KCl 40 mEq in 5% Dex/0.9% Sod 40 MEQ/1,000 ML IV.SOLN 125 MEQ IVCONT ×3 (03:26→17:32)
--- NOTE | 2022-05-21 03:30 | PC.NURSE ---
Admitted from ED via stretcher,alert and oriented.Denies pain.Lungs clear,no SOB.Monitor STACH,HR 110'S,BP 126/95 MAP 103.Insulin drip infusing.rate at 0.5ux/hr (0.5cc/hr).per .IV fluids started D5NS with 40 KCL at 125/hr as ordered.POC at 0300 180.
[2022-05-21] MEDS: Insulin Regular/NS 100 UNIT/100 ML PLAST..BAG IVCONT (03:47)
[2022-05-21 04:13] LABS: Glucose, Whole Blood 183 mg/dL (60-115)
[2022-05-21 04:55] LABS: Glucose, Whole Blood 185 mg/dL (60-115)
[2022-05-21 05:57] LABS: VBG Base Excess -11.5 mmol/L; VBG HCO3 12 mmol/L (22-26); VBG pCO2 23 mmHg; VBG pH 7.31 (7.32-7.43); VBG pO2 65 mmHg
[2022-05-21 05:57] LABS: Venous Blood Gas Refer to POC result
[2022-05-21 05:58] LABS: Glucose, Whole Blood 204 mg/dL (60-115)
[2022-05-21 06:14] LABS: Anion Gap 30 (12-20); Blood Urea Nitrogen 46 mg/dL (9-16); Calcium 8.7 mg/dL (8.4-10.2); Carbon Dioxide 13 mmol/L (22-29); Chloride 86 mmol/L (96-108); Creatinine Clr Calc Pharmacy 33.1; Estimated Glomerular Filt Rate 26; Glucose Random 198 mg/dL (60-115); Potassium 3.3 mmol/L (3.3-5.1); Sodium 126 mmol/L (135-145)
[2022-05-21 07:21] LABS: Glucose, Whole Blood 198 mg/dL (60-115)
[2022-05-21] MEDS: Potassium Chloride Packet 20 MEQ PACKET PO (08:02)
[2022-05-21 08:03] LABS: Glucose, Whole Blood 198 mg/dL (60-115)
[2022-05-21 09:10] LABS: Glucose, Whole Blood 185 mg/dL (60-115)
[2022-05-21 09:11] LABS: VBG Base Excess -9.8 mmol/L; VBG HCO3 13 mmol/L (22-26); VBG pCO2 23 mmHg; VBG pH 7.36 (7.32-7.43); VBG pO2 45 mmHg
[2022-05-21 09:37] LABS: Anion Gap 27 (12-20); Blood Urea Nitrogen 44 mg/dL (9-16); Calcium 8.4 mg/dL (8.4-10.2); Carbon Dioxide 14 mmol/L (22-29); Chloride 90 mmol/L (96-108); Creatinine Clr Calc Pharmacy 37.8; Estimated Glomerular Filt Rate 30; Glucose Random 225 mg/dL (60-115); Magnesium 1.8 mg/dL (1.6-2.6); Phosphorus 1.3 mg/dL (2.7-4.5); Potassium 3.7 mmol/L (3.3-5.1); Sodium 127 mmol/L (135-145)
--- NOTE | 2022-05-21 09:44 | PHA.MEDREC ---
Pharmacy Consult ? Medication Reconciliation Pharmacy has completed the medication reconciliation. Patient states they have been scattering meds and not taking on a consistent basis. Unable to determine last day taken for meds, however says it's been a couple days since they took their last unspecified meds.
[2022-05-21 10:19] LABS: Venous Blood Gas Refer to POC result
[2022-05-21 10:20] LABS: Glucose, Whole Blood 212 mg/dL (60-115)
[2022-05-21] MEDS: Potassium Phosphate/NS 15 MMOL/250 ML PLAST..BAG 62.5 MMOL IV ×2 (10:54→15:30)
[2022-05-21] MEDS: Thiamine HCL 100 MG TABLET PO (10:54)
[2022-05-21] MEDS: lamoTRIgine 100 MG TABLET 200 MG PO ×2 (10:54→20:39)
[2022-05-21 11:14] LABS: Glucose, Whole Blood 206 mg/dL (60-115)
[2022-05-21 12:08] LABS: Glucose, Whole Blood 160 mg/dL (60-115)
[2022-05-21 13:13] LABS: Glucose, Whole Blood 105 mg/dL (60-115)
[2022-05-21 14:06] LABS: Glucose, Whole Blood 116 mg/dL (60-115)
[2022-05-21 14:14] LABS: Venous Blood Gas Refer to POC result
[2022-05-21 14:15] LABS: VBG Base Excess -8.3 mmol/L; VBG HCO3 15 mmol/L (22-26); VBG pCO2 27 mmHg; VBG pH 7.35 (7.32-7.43); VBG pO2 59 mmHg
[2022-05-21 14:20] LABS: Anion Gap 20 (12-20); Blood Urea Nitrogen 40 mg/dL (9-16); Calcium 8.3 mg/dL (8.4-10.2); Carbon Dioxide 17 mmol/L (22-29); Chloride 96 mmol/L (96-108); Creatinine Clr Calc Pharmacy 49.1; Estimated Glomerular Filt Rate 41; Glucose Random 122 mg/dL (60-115); Potassium 3.8 mmol/L (3.3-5.1); Sodium 129 mmol/L (135-145)
[2022-05-21 15:30] LABS: Glucose, Whole Blood 155 mg/dL (60-115)
[2022-05-21 16:12] LABS: Glucose, Whole Blood 176 mg/dL (60-115)
--- NOTE | 2022-05-21 16:14 | PM.CCPN ---
Subjective Subjective Date of Service: 05/21/22 Interval History: 41-year-old male type 1 diabetic presented with diabetic ketoacidosis and acute on chronic renal failure but never oliguric with very slow to repair negative base excess and I do believe due to chronic renal insufficiency he probably needs oral bicarb replacement but he has been eating and metabolically in the right direction clearly rehydrated and his creatinine has reduced from 3 in a half to 1.8 as we continue to watch until the process is completed Critical Care Time (minutes): 45 Physical Exam Vital Signs: Vital Signs: Last Vital Signs Temp 98.7 F 05/21/22 08:00 Pulse 102 H 05/21/22 15:00 Resp 19 05/21/22 15:00 BP 134/90 H 05/21/22 15:00 Pulse Ox 98 05/21/22 15:00 O2 Del Method 05/21/22 15:00 BMI result Body Mass Index 23.8 Alert and oriented nonfocal Class 1 LV function Chest clear no adventitious sounds Abdomen soft no organomegaly Objective Data Labs CBC & Chem 7: 05/20/22 21:11 05/21/22 13:57 Labs: Laboratory Results - last 24 hr 05/20/22 05/20/22 05/20/22 20:12 21:11 21:11 WBC 8.4 RBC 5.01 Hgb 15.1 Hct 41.7 L MCV 83.2 MCH 30.1 MCHC 36.2 H RDW 13.2 Plt Count 155 L MPV 9.5 Immature Gran % (Auto) 1.2 H Neut % (Auto) 82.4 H Lymph % (Auto) 8.2 L [place] % (Auto) 7.8 Eos % (Auto) 0.0 Baso % (Auto) 0.4 Lymph # (Auto) 0.7 L [place] # (Auto) 0.7 Eos # (Auto) 0.0 Baso # (Auto) 0.0 Abs Immat Gran (auto) 0.10 H Absolute Neuts (auto) 6.9 Absolute Nucleated RBC 0.000 Nucleated RBC % (auto) 0.0 VBG pH VBG pCO2 VBG pO2 VBG HCO3 VBG O2 Saturation VBG Base Excess Sodium 124 L Potassium 4.3 D Chloride 79 L D Carbon Dioxide 6 L* D Anion Gap 43 H BUN 38 H D Creatinine 3.54 H Estim Creat Clear Calc 24.4 Estimated GFR 19 POC Glucose 481 H* Random Glucose 481 H* Lactic Acid Calcium 9.1 D Phosphorus 4.8 H Magnesium 2.3 Total Bilirubin 0.9 AST 83 H ALT 83 H Alkaline Phosphatase 224 H D Total Protein 8.8 H D Albumin 5.0 D Urine Color Urine Appearance Urine pH Ur Specific [place] Urine Protein Urine Glucose (UA) Urine Ketones Urine Blood Urine Nitrite Ur Leukocyte Esterase Urine RBC Urine WBC Ur Squamous Epith Cells Urine Bacteria Hyaline Casts Urine Opiates Screen Urine Fentanyl Screen Ur Barbiturates Screen Ur Phencyclidine Scrn Ur Amphetamines Screen U Benzodiazepines Scrn Urine Cocaine Screen U Marijuana (THC) Screen Ethyl Alcohol < 10 Acetone, Qual Moderate H COVID-19 (ALLEN) COVID-19 Clin Com Influenza Type A (VICK) Influenza Type B (VICK) Influenza A & B Note 05/20/22 05/20/22 05/20/22 21:51 22:02 22:02 WBC RBC Hgb Hct MCV MCH MCHC RDW Plt Count MPV Immature Gran % (Auto) Neut % (Auto) Lymph % (Auto) [place] % (Auto) Eos % (Auto) Baso % (Auto) Lymph # (Auto) [place] # (Auto) Eos # (Auto) Baso # (Auto) Abs Immat Gran (auto) Absolute Neuts (auto) Absolute Nucleated RBC Nucleated RBC % (auto) VBG pH VBG pCO2 VBG pO2 VBG HCO3 VBG O2 Saturation VBG Base Excess Sodium Potassium Chloride Carbon Dioxide Anion Gap BUN Creatinine Estim Creat Clear Calc Estimated GFR POC Glucose 447 H* Random Glucose Lactic Acid 1.0 Calcium Phosphorus Magnesium Total Bilirubin AST ALT Alkaline Phosphatase Total Protein Albumin Urine Color Urine Appearance Urine pH Ur Specific [place] Urine Protein Urine Glucose (UA) Urine Ketones Urine Blood Urine Nitrite Ur Leukocyte Esterase Urine RBC Urine WBC Ur Squamous Epith Cells Urine Bacteria Hyaline Casts Urine Opiates Screen Urine Fentanyl Screen Ur Barbiturates Screen Ur Phencyclidine Scrn Ur Amphetamines Screen U Benzodiazepines Scrn Urine Cocaine Screen U Marijuana (THC) Screen Ethyl Alcohol Acetone, Qual COVID-19 (ALLEN) COVID-19 Clin Com Influenza Type A (VICK) Negative Influenza Type B (VICK) Negative Influenza A & B Note See Note 05/20/22 05/20/22 05/20/22 22:02 23:13 23:59 WBC RBC Hgb Hct MCV MCH MCHC RDW Plt Count MPV Immature Gran % (Auto) Neut % (Auto) Lymph % (Auto) [place] % (Auto) Eos % (Auto) Baso % (Auto) Lymph # (Auto) [place] # (Auto) Eos # (Auto) Baso # (Auto) Abs Immat Gran (auto) Absolute Neuts (auto) Absolute Nucleated RBC Nucleated RBC % (auto) VBG pH 7.21 L VBG pCO2 18 VBG pO2 57 VBG HCO3 7 L VBG O2 Saturation 85.0 VBG Base Excess -17.3 Sodium Potassium Chloride Carbon Dioxide Anion Gap BUN Creatinine Estim Creat Clear Calc Estimated GFR POC Glucose 343 H Random Glucose Lactic Acid Calcium Phosphorus Magnesium Total Bilirubin AST ALT Alkaline Phosphatase Total Protein Albumin Urine Color Urine Appearance Urine pH Ur Specific [place] Urine Protein Urine Glucose (UA) Urine Ketones Urine Blood Urine Nitrite Ur Leukocyte Esterase Urine RBC Urine WBC Ur Squamous Epith Cells Urine Bacteria Hyaline Casts Urine Opiates Screen Urine Fentanyl Screen Ur Barbiturates Screen Ur Phencyclidine Scrn Ur Amphetamines Screen U Benzodiazepines Scrn Urine Cocaine Screen U Marijuana (THC) Screen Ethyl Alcohol Acetone, Qual COVID-19 (ALLEN) Negative COVID-19 Clin Com See Note Influenza Type A (VICK) Influenza Type B (VICK) Influenza A & B Note 05/21/22 05/21/22 05/21/22 00:00 00:41 00:41 WBC RBC Hgb Hct MCV MCH MCHC RDW Plt Count MPV Immature Gran % (Auto) Neut % (Auto) Lymph % (Auto) [place] % (Auto) Eos % (Auto) Baso % (Auto) Lymph # (Auto) [place] # (Auto) Eos # (Auto) Baso # (Auto) Abs Immat Gran (auto) Absolute Neuts (auto) Absolute Nucleated RBC Nucleated RBC % (auto) VBG pH VBG pCO2 VBG pO2 VBG HCO3 VBG O2 Saturation VBG Base Excess Sodium Potassium Chloride Carbon Dioxide Anion Gap BUN Creatinine Estim Creat Clear Calc Estimated GFR POC Glucose 269 H Random Glucose Lactic Acid Calcium Phosphorus Magnesium Total Bilirubin AST ALT Alkaline Phosphatase Total Protein Albumin Urine Color Dark Yellow Urine Appearance Cloudy Urine pH 5.0 Ur Specific [place] 1.025 Urine Protein 300 (3+) H Urine Glucose (UA) >=1000 H Urine Ketones 40 Urine Blood Large (3+) H Urine Nitrite Negative Ur Leukocyte Esterase Negative Urine RBC >20 H Urine WBC 0-5 Ur Squamous Epith Cells 0-2 Urine Bacteria None Seen Hyaline Casts 11-20 Urine Opiates Screen Not Detected Urine Fentanyl Screen Not Detected Ur Barbiturates Screen Not Detected Ur Phencyclidine Scrn Not Detected Ur Amphetamines Screen Not Detected U Benzodiazepines Scrn Not Detected Urine Cocaine Screen Not Detected U Marijuana (THC) Screen Not Detected Ethyl Alcohol Acetone, Qual COVID-19 (ALLEN) COVID-19 Clin Com Influenza Type A (VICK) Influenza Type B (VICK) Influenza A & B Note 05/21/22 05/21/22 05/21/22 01:15 02:13 02:14 WBC RBC Hgb Hct MCV MCH MCHC RDW Plt Count MPV Immature Gran % (Auto) Neut % (Auto) Lymph % (Auto) [place] % (Auto) Eos % (Auto) Baso % (Auto) Lymph # (Auto) [place] # (Auto) Eos # (Auto) Baso # (Auto) Abs Immat Gran (auto) Absolute Neuts (auto) Absolute Nucleated RBC Nucleated RBC % (auto) VBG pH 7.22 L VBG pCO2 19 VBG pO2 48 VBG HCO3 8 L VBG O2 Saturation 76.0 VBG Base Excess -16.5 Sodium 126 L Potassium 3.5 Chloride 83 L Carbon Dioxide 6 L* Anion Gap 41 H BUN 44 H Creatinine 3.09 H Estim Creat Clear Calc 27.9 Estimated GFR 22 POC Glucose 245 H Random Glucose 186 H D Lactic Acid Calcium 9.3 Phosphorus Magnesium Total Bilirubin AST ALT Alkaline Phosphatase Total Protein Albumin Urine Color Urine Appearance Urine pH Ur Specific [place] Urine Protein Urine Glucose (UA) Urine Ketones Urine Blood Urine Nitrite Ur Leukocyte Esterase Urine RBC Urine WBC Ur Squamous Epith Cells Urine Bacteria Hyaline Casts Urine Opiates Screen Urine Fentanyl Screen Ur Barbiturates Screen Ur Phencyclidine Scrn Ur Amphetamines Screen U Benzodiazepines Scrn Urine Cocaine Screen U Marijuana (THC) Screen Ethyl Alcohol Acetone, Qual COVID-19 (ALLEN) COVID-19 Clin Com Influenza Type A (VICK) Influenza Type B (VICK) Influenza A & B Note 05/21/22 05/21/22 05/21/22 02:15 03:01 04:09 WBC RBC Hgb Hct MCV MCH MCHC RDW Plt Count MPV Immature Gran % (Auto) Neut % (Auto) Lymph % (Auto) [place] % (Auto) Eos % (Auto) Baso % (Auto) Lymph # (Auto) [place] # (Auto) Eos # (Auto) Baso # (Auto) Abs Immat Gran (auto) Absolute Neuts (auto) Absolute Nucleated RBC Nucleated RBC % (auto) VBG pH VBG pCO2 VBG pO2 VBG HCO3 VBG O2 Saturation VBG Base Excess Sodium Potassium Chloride Carbon Dioxide Anion Gap BUN Creatinine Estim Creat Clear Calc Estimated GFR POC Glucose 216 H 180 H 183 H Random Glucose Lactic Acid Calcium Phosphorus Magnesium Total Bilirubin AST ALT Alkaline Phosphatase Total Protein Albumin Urine Color Urine Appearance Urine pH Ur Specific [place] Urine Protein Urine Glucose (UA) Urine Ketones Urine Blood Urine Nitrite Ur Leukocyte Esterase Urine RBC Urine WBC Ur Squamous Epith Cells Urine Bacteria Hyaline Casts Urine Opiates Screen Urine Fentanyl Screen Ur Barbiturates Screen Ur Phencyclidine Scrn Ur Amphetamines Screen U Benzodiazepines Scrn Urine Cocaine Screen U Marijuana (THC) Screen Ethyl Alcohol Acetone, Qual COVID-19 (ALLEN) COVID-19 Clin Com Influenza Type A (VICK) Influenza Type B (VICK) Influenza A & B Note 05/21/22 05/21/22 05/21/22 04:51 05:50 05:52 WBC RBC Hgb Hct MCV MCH MCHC RDW Plt Count MPV Immature Gran % (Auto) Neut % (Auto) Lymph % (Auto) [place] % (Auto) Eos % (Auto) Baso % (Auto) Lymph # (Auto) [place] # (Auto) Eos # (Auto) Baso # (Auto) Abs Immat Gran (auto) Absolute Neuts (auto) Absolute Nucleated RBC Nucleated RBC % (auto) VBG pH 7.31 L VBG pCO2 23 VBG pO2 65 VBG HCO3 12 L VBG O2 Saturation 91.0 VBG Base Excess -11.5 Sodium 126 L Potassium 3.3 Chloride 86 L Carbon Dioxide 13 L Anion Gap 30 H BUN 46 H Creatinine 2.71 H Estim Creat Clear Calc 33.1 Estimated GFR 26 POC Glucose 185 H Random Glucose 198 H Lactic Acid Calcium 8.7 D Phosphorus Magnesium Total Bilirubin AST ALT Alkaline Phosphatase Total Protein Albumin Urine Color Urine Appearance Urine pH Ur Specific [place] Urine Protein Urine Glucose (UA) Urine Ketones Urine Blood Urine Nitrite Ur Leukocyte Esterase Urine RBC Urine WBC Ur Squamous Epith Cells Urine Bacteria Hyaline Casts Urine Opiates Screen Urine Fentanyl Screen Ur Barbiturates Screen Ur Phencyclidine Scrn Ur Amphetamines Screen U Benzodiazepines Scrn Urine Cocaine Screen U Marijuana (THC) Screen Ethyl Alcohol Acetone, Qual COVID-19 (ALLEN) COVID-19 Clin Com Influenza Type A (VICK) Influenza Type B (VICK) Influenza A & B Note 05/21/22 05/21/22 05/21/22 05:54 07:18 07:59 WBC RBC Hgb Hct MCV MCH MCHC RDW Plt Count MPV Immature Gran % (Auto) Neut % (Auto) Lymph % (Auto) [place] % (Auto) Eos % (Auto) Baso % (Auto) Lymph # (Auto) [place] # (Auto) Eos # (Auto) Baso # (Auto) Abs Immat Gran (auto) Absolute Neuts (auto) Absolute Nucleated RBC Nucleated RBC % (auto) VBG pH VBG pCO2 VBG pO2 VBG HCO3 VBG O2 Saturation VBG Base Excess Sodium Potassium Chloride Carbon Dioxide Anion Gap BUN Creatinine Estim Creat Clear Calc Estimated GFR POC Glucose 204 H 198 H 198 H Random Glucose Lactic Acid Calcium Phosphorus Magnesium Total Bilirubin AST ALT Alkaline Phosphatase Total Protein Albumin Urine Color Urine Appearance Urine pH Ur Specific [place] Urine Protein Urine Glucose (UA) Urine Ketones Urine Blood Urine Nitrite Ur Leukocyte Esterase Urine RBC Urine WBC Ur Squamous Epith Cells Urine Bacteria Hyaline Casts Urine Opiates Screen Urine Fentanyl Screen Ur Barbiturates Screen Ur Phencyclidine Scrn Ur Amphetamines Screen U Benzodiazepines Scrn Urine Cocaine Screen U Marijuana (THC) Screen Ethyl Alcohol Acetone, Qual COVID-19 (ALLEN) COVID-19 Clin Com Influenza Type A (VICK) Influenza Type B (VICK) Influenza A & B Note 05/21/22 05/21/22 05/21/22 09:05 09:06 09:07 WBC RBC Hgb Hct MCV MCH MCHC RDW Plt Count MPV Immature Gran % (Auto) Neut % (Auto) Lymph % (Auto) [place] % (Auto) Eos % (Auto) Baso % (Auto) Lymph # (Auto) [place] # (Auto) Eos # (Auto) Baso # (Auto) Abs Immat Gran (auto) Absolute Neuts (auto) Absolute Nucleated RBC Nucleated RBC % (auto) VBG pH 7.36 VBG pCO2 23 VBG pO2 45 VBG HCO3 13 L VBG O2 Saturation 78.0 VBG Base Excess -9.8 Sodium 127 L Potassium 3.7 Chloride 90 L Carbon Dioxide 14 L Anion Gap 27 H BUN 44 H Creatinine 2.38 H Estim Creat Clear Calc 37.8 Estimated GFR 30 POC Glucose 185 H Random Glucose 225 H Lactic Acid Calcium 8.4 Phosphorus 1.3 L Magnesium 1.8 Total Bilirubin AST ALT Alkaline Phosphatase Total Protein Albumin Urine Color Urine Appearance Urine pH Ur Specific [place] Urine Protein Urine Glucose (UA) Urine Ketones Urine Blood Urine Nitrite Ur Leukocyte Esterase Urine RBC Urine WBC Ur Squamous Epith Cells Urine Bacteria Hyaline Casts Urine Opiates Screen Urine Fentanyl Screen Ur Barbiturates Screen Ur Phencyclidine Scrn Ur Amphetamines Screen U Benzodiazepines Scrn Urine Cocaine Screen U Marijuana (THC) Screen Ethyl Alcohol Acetone, Qual COVID-19 (ALLEN) COVID-19 Clin Com Influenza Type A (VICK) Influenza Type B (VICK) Influenza A & B Note 05/21/22 05/21/22 05/21/22 10:15 11:06 12:04 WBC RBC Hgb Hct MCV MCH MCHC RDW Plt Count MPV Immature Gran % (Auto) Neut % (Auto) Lymph % (Auto) [place] % (Auto) Eos % (Auto) Baso % (Auto) Lymph # (Auto) [place] # (Auto) Eos # (Auto) Baso # (Auto) Abs Immat Gran (auto) Absolute Neuts (auto) Absolute Nucleated RBC Nucleated RBC % (auto) VBG pH VBG pCO2 VBG pO2 VBG HCO3 VBG O2 Saturation VBG Base Excess Sodium Potassium Chloride Carbon Dioxide Anion Gap BUN Creatinine Estim Creat Clear Calc Estimated GFR POC Glucose 212 H 206 H 160 H Random Glucose Lactic Acid Calcium Phosphorus Magnesium Total Bilirubin AST ALT Alkaline Phosphatase Total Protein Albumin Urine Color Urine Appearance Urine pH Ur Specific [place] Urine Protein Urine Glucose (UA) Urine Ketones Urine Blood Urine Nitrite Ur Leukocyte Esterase Urine RBC Urine WBC Ur Squamous Epith Cells Urine Bacteria Hyaline Casts Urine Opiates Screen Urine Fentanyl Screen Ur Barbiturates Screen Ur Phencyclidine Scrn Ur Amphetamines Screen U Benzodiazepines Scrn Urine Cocaine Screen U Marijuana (THC) Screen Ethyl Alcohol Acetone, Qual COVID-19 (ALLEN) COVID-19 Clin Com Influenza Type A (VICK) Influenza Type B (VICK) Influenza A & B Note 05/21/22 05/21/22 05/21/22 13:09 13:57 14:02 WBC RBC Hgb Hct MCV MCH MCHC RDW Plt Count MPV Immature Gran % (Auto) Neut % (Auto) Lymph % (Auto) [place] % (Auto) Eos % (Auto) Baso % (Auto) Lymph # (Auto) [place] # (Auto) Eos # (Auto) Baso # (Auto) Abs Immat Gran (auto) Absolute Neuts (auto) Absolute Nucleated RBC Nucleated RBC % (auto) VBG pH VBG pCO2 VBG pO2 VBG HCO3 VBG O2 Saturation VBG Base Excess Sodium 129 L Potassium 3.8 Chloride 96 Carbon Dioxide 17 L Anion Gap 20 BUN 40 H Creatinine 1.83 H Estim Creat Clear Calc 49.1 Estimated GFR 41 POC Glucose 105 116 H Random Glucose 122 H D Lactic Acid Calcium 8.3 L Phosphorus Magnesium Total Bilirubin AST ALT Alkaline Phosphatase Total Protein Albumin Urine Color Urine Appearance Urine pH Ur Specific [place] Urine Protein Urine Glucose (UA) Urine Ketones Urine Blood Urine Nitrite Ur Leukocyte Esterase Urine RBC Urine WBC Ur Squamous Epith Cells Urine Bacteria Hyaline Casts Urine Opiates Screen Urine Fentanyl Screen Ur Barbiturates Screen Ur Phencyclidine Scrn Ur Amphetamines Screen U Benzodiazepines Scrn Urine Cocaine Screen U Marijuana (THC) Screen Ethyl Alcohol Acetone, Qual COVID-19 (ALLEN) COVID-19 Clin Com Influenza Type A (VICK) Influenza Type B (VICK) Influenza A & B Note 05/21/22 05/21/22 05/21/22 14:03 15:26 16:08 WBC RBC Hgb Hct MCV MCH MCHC RDW Plt Count MPV Immature Gran % (Auto) Neut % (Auto) Lymph % (Auto) [place] % (Auto) Eos % (Auto) Baso % (Auto) Lymph # (Auto) [place] # (Auto) Eos # (Auto) Baso # (Auto) Abs Immat Gran (auto) Absolute Neuts (auto) Absolute Nucleated RBC Nucleated RBC % (auto) VBG pH 7.35 VBG pCO2 27 VBG pO2 59 VBG HCO3 15 L VBG O2 Saturation 89.0 VBG Base Excess -8.3 Sodium Potassium Chloride Carbon Dioxide Anion Gap BUN Creatinine Estim Creat Clear Calc Estimated GFR POC Glucose 155 H 176 H Random Glucose Lactic Acid Calcium Phosphorus Magnesium Total Bilirubin AST ALT Alkaline Phosphatase Total Protein Albumin Urine Color Urine Appearance Urine pH Ur Specific [place] Urine Protein Urine Glucose (UA) Urine Ketones Urine Blood Urine Nitrite Ur Leukocyte Esterase Urine RBC Urine WBC Ur Squamous Epith Cells Urine Bacteria Hyaline Casts Urine Opiates Screen Urine Fentanyl Screen Ur Barbiturates Screen Ur Phencyclidine Scrn Ur Amphetamines Screen U Benzodiazepines Scrn Urine Cocaine Screen U Marijuana (THC) Screen Ethyl Alcohol Acetone, Qual COVID-19 (ALLEN) COVID-19 Clin Com Influenza Type A (VICK) Influenza Type B (VICK) Influenza A & B Note Progress Note: A&P Assessment and plan (1) Acidosis, lactic: Status: Acute (2) Nausea & vomiting: Status: Acute (3) Headache: Status: Acute (4) Alcohol withdrawal: Status: Acute (5) Tachycardia: Status: Acute (6) Hyponatremia: Status: Acute (7) Hypokalemia: Status: Acute (8) Hypomagnesemia: Status: Acute (9) Dehydration: Status: Acute (10) DKA (diabetic ketoacidosis): Status: Acute (11) Renal failure (ARF), acute on chronic: Status: Acute (12) Hypophosphatemia: Status: Acute Plan The plan is with the anion gap closing once the serum bicarb exceeds 20 he is ready to be transfer to the floor and switched over to subcutaneous insulin long and short-acting Quality Stroke Does the patient have a stroke diagnosis?: No VTE Prior VTE?: No VTE Risk Level:: Medical - low VTE Device Contraindication: N/A - Device Ordered VTE Drug Contraindication: Treatment Not Indicated
[2022-05-21 17:09] LABS: Glucose, Whole Blood 190 mg/dL (60-115)
[2022-05-21 17:53] LABS: Glucose, Whole Blood 205 mg/dL (60-115)
[2022-05-21 18:10] LABS: Venous Blood Gas Refer to POC result
[2022-05-21 18:22] LABS: Anion Gap 20 (12-20); Blood Urea Nitrogen 35 mg/dL (9-16); Calcium 7.8 mg/dL (8.4-10.2); Carbon Dioxide 16 mmol/L (22-29); Chloride 98 mmol/L (96-108); Creatinine Clr Calc Pharmacy 57.6; Estimated Glomerular Filt Rate 49; Glucose Random 220 mg/dL (60-115); Potassium 3.8 mmol/L (3.3-5.1); Sodium 130 mmol/L (135-145)
[2022-05-21 19:09] LABS: Glucose, Whole Blood 137 mg/dL (60-115)
[2022-05-21 20:35] LABS: Glucose, Whole Blood 150 mg/dL (60-115)
[2022-05-21] MEDS: Sodium Bicarbonate 650 MG TABLET PO (20:39)
[2022-05-21 21:10] LABS: Glucose, Whole Blood 169 mg/dL (60-115)
[2022-05-21 21:25] LABS: Venous Blood Gas Refer to POC result
[2022-05-21 21:27] LABS: VBG Base Excess -7.6 mmol/L; VBG HCO3 16 mmol/L (22-26); VBG pCO2 27 mmHg; VBG pH 7.37 (7.32-7.43); VBG pO2 58 mmHg
[2022-05-21 21:39] LABS: Anion Gap 20 (12-20); Blood Urea Nitrogen 34 mg/dL (9-16); Carbon Dioxide 16 mmol/L (22-29); Chloride 101 mmol/L (96-108); Creatinine Clr Calc Pharmacy 62.4; Estimated Glomerular Filt Rate 54; Glucose Random 183 mg/dL (60-115); Potassium 3.6 mmol/L (3.3-5.1); Sodium 133 mmol/L (135-145)
[2022-05-21 22:37] LABS: Glucose, Whole Blood 208 mg/dL (60-115)
[2022-05-21 23:24] LABS: Glucose, Whole Blood 196 mg/dL (60-115)
[2022-05-22] VITALS (21 sets, daily range): BP systolic 110–156; BP diastolic 81–109; PULSE 97–137; RESP 15–31; TEMP 36.7–37.2; O2SAT 96–99; BMI 23.8
[2022-05-22 00:38] LABS: Glucose, Whole Blood 121 mg/dL (60-115)
[2022-05-22 00:54] LABS: VBG Base Excess -4.9 mmol/L; VBG HCO3 17 mmol/L (22-26); VBG pCO2 27 mmHg; VBG pH 7.42 (7.32-7.43); VBG pO2 52 mmHg
[2022-05-22 01:14] LABS: Anion Gap 18 (12-20); Blood Urea Nitrogen 31 mg/dL (9-16); Calcium 8.3 mg/dL (8.4-10.2); Carbon Dioxide 17 mmol/L (22-29); Chloride 103 mmol/L (96-108); Creatinine Clr Calc Pharmacy 72.5; Estimated Glomerular Filt Rate > 60; Glucose Random 117 mg/dL (60-115); Magnesium 1.7 mg/dL (1.6-2.6); Potassium 3.2 mmol/L (3.3-5.1); Sodium 135 mmol/L (135-145)
[2022-05-22] MEDS: KCl 40 mEq in 5% Dex/0.9% Sod 40 MEQ/1,000 ML IV.SOLN 125 MEQ IVCONT (01:40)
[2022-05-22 01:47] LABS: Glucose, Whole Blood 137 mg/dL (60-115)
[2022-05-22] MEDS: Magnesium Sulfate/D5W 1 GM/100 ML PIGGYBACK IV (01:56)
[2022-05-22 02:25] LABS: Glucose, Whole Blood 171 mg/dL (60-115)
[2022-05-22] MEDS: Potassium Phosphate/NS 15 MMOL/250 ML PLAST..BAG 62.5 MMOL IV ×4 (02:53→21:07)
[2022-05-22] MEDS: Insulin Regular/NS 100 UNIT/100 ML PLAST..BAG IVCONT (03:38)
[2022-05-22 03:43] LABS: Glucose, Whole Blood 206 mg/dL (60-115)
[2022-05-22 04:27] LABS: Basophils Percent Auto 0.2 % (0-2); Hematocrit 28.8 % (42.0-52.0); Hemoglobin 10.8 g/dl (14.0-18.0); Imm Gran Abs Auto 0.04 X10*3/uL (0.00-0.03); Imm Gran Pct Auto 0.8 % (0.0-0.4); Lymphocytes Absolute Auto 0.7 X10*3/uL (1.2-4.9); Lymphocytes Percent Auto 13.6 % (20-40); Mean Corpuscular HGB Conc 37.5 g/dl (31.0-36.0); Mean Corpuscular Hemoglobin 31.3 pg (27.0-33.0); Mean Corpuscular Volume 83.5 fL (80.0-98.0); Mean Platelet Volume 9.7 fL (9.4-12.4); Monocytes Absolute Auto 0.5 X10*3/uL (0.1-1.2); Monocytes Percent Auto 9.5 % (2-11); Neutrophils Absolute Auto 3.7 x10*3/uL (2.0-8.3); Neutrophils Percent Auto 75.9 % (45-73); Red Blood Count 3.45 X10*6/uL (4.60-5.80); Red Cell Distribution Width 14.3 % (11.0-16.0); White Blood Count 4.8 X10*3/uL (4.8-10.8)
[2022-05-22 04:29] LABS: Glucose, Whole Blood 171 mg/dL (60-115)
[2022-05-22 04:30] LABS: MANUAL DIFF FLAG SCAN; Platelet Count 87 X10*3/uL (160-400)
[2022-05-22 04:40] LABS: Anion Gap 16 (12-20); Blood Urea Nitrogen 27 mg/dL (9-16); Calcium 7.8 mg/dL (8.4-10.2); Carbon Dioxide 17 mmol/L (22-29); Chloride 103 mmol/L (96-108); Creatinine Clr Calc Pharmacy 77.5; Estimated Glomerular Filt Rate > 60; Glucose Random 208 mg/dL (60-115); Phosphorus 1.5 mg/dL (2.7-4.5); Potassium 3.3 mmol/L (3.3-5.1); Sodium 133 mmol/L (135-145)
[2022-05-22 04:54] LABS: Venous Blood Gas Refer to POC result
[2022-05-22 04:56] LABS: SLIDE REVIEW VERIFIED
[2022-05-22 05:34] LABS: Glucose, Whole Blood 110 mg/dL (60-115)
[2022-05-22 06:14] LABS: Glucose, Whole Blood 83 mg/dL (60-115)
--- NOTE | 2022-05-22 06:23 | PM.CCN ---
Critical Care Event Note Summary Date of Service: 05/22/22 Code activated: No Narrative: This case had a high probability of a clinically significant, sudden, or life threatening deterioration of this patient's condition which required my full and direct attention, intervention and personal management. Critical Care Time (minutes): 20 Comment: Just pointing out that there was a nearly 50% drop in platelets overnight smaller percentage drop in hemoglobin that bears watching
[2022-05-22 07:08] LABS: VBG Base Excess -8.4 mmol/L; VBG HCO3 15 mmol/L (22-26); VBG pCO2 26 mmHg; VBG pH 7.36 (7.32-7.43); VBG pO2 57 mmHg
[2022-05-22 07:12] LABS: Glucose, Whole Blood 76 mg/dL (60-115)
[2022-05-22] MEDS: Thiamine HCL 100 MG TABLET PO (07:24)
[2022-05-22] MEDS: Sodium Bicarbonate 650 MG TABLET PO ×4 (07:24→21:07)
[2022-05-22] MEDS: lamoTRIgine 100 MG TABLET 200 MG PO ×2 (07:24→21:07)
[2022-05-22 07:40] LABS: Glucose, Whole Blood 105 mg/dL (60-115)
[2022-05-22 08:16] LABS: Glucose, Whole Blood 174 mg/dL (60-115)
[2022-05-22] MEDS: Insulin Glargine,Hum.rec.anlog 100 UNIT/ML 10 ML VIAL 40 UNIT SUBCUT (09:19)
--- NOTE | 2022-05-22 11:09 | MHC.CLN ---
PT WITH 20% SIGNIFICANT WT LOSS X 6 MONTHS R/T RELAPSE WITH ETOH ABUSE AND POORLY MANAGED BS PT REPORTED USING 10 NIPS PER DAY DIET RX: [id number] PT DOES NOT WANT NUTRITION SUPPLEMENTS AT THIS TIME MONITOR PO INTAKE CLOSELY SEE FULL CLINICAL NUTRITION ASSESSMENT
--- NOTE | 2022-05-22 11:11 | P.PNCC_ITS ---
Subjective Subjective Date of Service: 05/22/22 Interval History: 41-year-old gentleman with underlying type 1 diabetes mellitus, alcohol abuse, bipolar, and prior history of alcohol withdrawal admitted on 05/21/2022 with diabetic ketoacidosis secondary to noncompliance with his insulin regimen requiring initiation insulin drip and admission to the intensive care unit. Overnight patient has been titrated off insulin drip and started on p.o. diet. Critical Care Time (minutes): 0 Physical Exam Vital Signs: Vital Signs: Last Vital Signs Temp 98.0 F 05/22/22 10:00 Pulse 106 H 05/22/22 11:00 Resp 30 H 05/22/22 11:00 BP 144/102 H 05/22/22 11:00 Pulse Ox 97 05/22/22 11:00 O2 Del Method 05/22/22 11:00 FiO2 96 05/21/22 18:00 BMI result Body Mass Index 23.8 Const: General: no acute distress, alert and awake Eyes: Sclerae: sclerae normal EOM: EOMs intact bilaterally Neck: Neck: Yes no lymphadenopathy, Yes trachea midline and Yes supple Resp: Effort & Inspection: normal respiratory effort and no respiratory distress Auscultation: clear to auscultation bilaterally Cardio: Rate: tachycardic Rhythm: regular rhythm Heart sounds: no g allops, no murmurs and no rubs GI: Palpation (GI): Soft to palpation and Other GI palpation findings present ( Nontender) Auscultation: normal bowel sounds Extrem: General: Yes no pedal edema, No clubbing and No cyanosis Objective Data Labs CBC & Chem 7: 05/22/22 04:09 05/22/22 04:09 Labs: Laboratory Results - last 24 hr 05/21/22 05/21/22 05/21/22 11:06 12:04 13:09 WBC RBC Hgb Hct MCV MCH MCHC RDW Plt Count MPV Immature Gran % (Auto) Neut % (Auto) Lymph % (Auto) [place] % (Auto) Eos % (Auto) Baso % (Auto) Lymph # (Auto) [place] # (Auto) Eos # (Auto) Baso # (Auto) Abs Immat Gran (auto) Absolute Neuts (auto) Absolute Nucleated RBC Nucleated RBC % (auto) Smear Tech's Comments VBG pH VBG pCO2 VBG pO2 VBG HCO3 VBG O2 Saturation VBG Base Excess Sodium Potassium Chloride Carbon Dioxide Anion Gap BUN Creatinine Estim Creat Clear Calc Estimated GFR POC Glucose 206 H 160 H 105 Random Glucose Calcium Phosphorus Magnesium 05/21/22 05/21/22 05/21/22 13:57 14:02 14:03 WBC RBC Hgb Hct MCV MCH MCHC RDW Plt Count MPV Immature Gran % (Auto) Neut % (Auto) Lymph % (Auto) [place] % (Auto) Eos % (Auto) Baso % (Auto) Lymph # (Auto) [place] # (Auto) Eos # (Auto) Baso # (Auto) Abs Immat Gran (auto) Absolute Neuts (auto) Absolute Nucleated RBC Nucleated RBC % (auto) Smear Tech's Comments VBG pH 7.35 VBG pCO2 27 VBG pO2 59 VBG HCO3 15 L VBG O2 Saturation 89.0 VBG Base Excess -8.3 Sodium 129 L Potassium 3.8 Chloride 96 Carbon Dioxide 17 L Anion Gap 20 BUN 40 H Creatinine 1.83 H Estim Creat Clear Calc 49.1 Estimated GFR 41 POC Glucose 116 H Random Glucose 122 H D Calcium 8.3 L Phosphorus Magnesium 05/21/22 05/21/22 05/21/22 15:26 16:08 17:06 WBC RBC Hgb Hct MCV MCH MCHC RDW Plt Count MPV Immature Gran % (Auto) Neut % (Auto) Lymph % (Auto) [place] % (Auto) Eos % (Auto) Baso % (Auto) Lymph # (Auto) [place] # (Auto) Eos # (Auto) Baso # (Auto) Abs Immat Gran (auto) Absolute Neuts (auto) Absolute Nucleated RBC Nucleated RBC % (auto) Smear Tech's Comments VBG pH VBG pCO2 VBG pO2 VBG HCO3 VBG O2 Saturation VBG Base Excess Sodium Potassium Chloride Carbon Dioxide Anion Gap BUN Creatinine Estim Creat Clear Calc Estimated GFR POC Glucose 155 H 176 H 190 H Random Glucose Calcium Phosphorus Magnesium 05/21/22 05/21/22 05/21/22 17:50 17:56 18:03 WBC RBC Hgb Hct MCV MCH MCHC RDW Plt Count MPV Immature Gran % (Auto) Neut % (Auto) Lymph % (Auto) [place] % (Auto) Eos % (Auto) Baso % (Auto) Lymph # (Auto) [place] # (Auto) Eos # (Auto) Baso # (Auto) Abs Immat Gran (auto) Absolute Neuts (auto) Absolute Nucleated RBC Nucleated RBC % (auto) Smear Tech's Comments VBG pH 7.36 VBG pCO2 26 VBG pO2 57 VBG HCO3 15 L VBG O2 Saturation 89.0 VBG Base Excess -8.4 Sodium 130 L Potassium 3.8 Chloride 98 Carbon Dioxide 16 L Anion Gap 20 BUN 35 H Creatinine 1.56 H Estim Creat Clear Calc 57.6 Estimated GFR 49 POC Glucose 205 H Random Glucose 220 H D Calcium 7.8 L D Phosphorus Magnesium 05/21/22 05/21/22 05/21/22 19:05 20:32 21:04 WBC RBC Hgb Hct MCV MCH MCHC RDW Plt Count MPV Immature Gran % (Auto) Neut % (Auto) Lymph % (Auto) [place] % (Auto) Eos % (Auto) Baso % (Auto) Lymph # (Auto) [place] # (Auto) Eos # (Auto) Baso # (Auto) Abs Immat Gran (auto) Absolute Neuts (auto) Absolute Nucleated RBC Nucleated RBC % (auto) Smear Tech's Comments VBG pH VBG pCO2 VBG pO2 VBG HCO3 VBG O2 Saturation VBG Base Excess Sodium Potassium Chloride Carbon Dioxide Anion Gap BUN Creatinine Estim Creat Clear Calc Estimated GFR POC Glucose 137 H 150 H 169 H Random Glucose Calcium Phosphorus Magnesium 05/21/22 05/21/22 05/21/22 21:18 21:21 22:32 WBC RBC Hgb Hct MCV MCH MCHC RDW Plt Count MPV Immature Gran % (Auto) Neut % (Auto) Lymph % (Auto) [place] % (Auto) Eos % (Auto) Baso % (Auto) Lymph # (Auto) [place] # (Auto) Eos # (Auto) Baso # (Auto) Abs Immat Gran (auto) Absolute Neuts (auto) Absolute Nucleated RBC Nucleated RBC % (auto) Smear Tech's Comments VBG pH 7.37 VBG pCO2 27 VBG pO2 58 VBG HCO3 16 L VBG O2 Saturation 90.0 VBG Base Excess -7.6 Sodium 133 L Potassium 3.6 Chloride 101 Carbon Dioxide 16 L Anion Gap 20 BUN 34 H Creatinine 1.44 H Estim Creat Clear Calc 62.4 Estimated GFR 54 POC Glucose 208 H Random Glucose 183 H Calcium 8.0 L Phosphorus Magnesium 05/21/22 05/22/22 05/22/22 23:20 00:35 00:48 WBC RBC Hgb Hct MCV MCH MCHC RDW Plt Count MPV Immature Gran % (Auto) Neut % (Auto) Lymph % (Auto) [place] % (Auto) Eos % (Auto) Baso % (Auto) Lymph # (Auto) [place] # (Auto) Eos # (Auto) Baso # (Auto) Abs Immat Gran (auto) Absolute Neuts (auto) Absolute Nucleated RBC Nucleated RBC % (auto) Smear Tech's Comments VBG pH VBG pCO2 VBG pO2 VBG HCO3 VBG O2 Saturation VBG Base Excess Sodium 135 Potassium 3.2 L Chloride 103 Carbon Dioxide 17 L Anion Gap 18 BUN 31 H Creatinine 1.24 Estim Creat Clear Calc 72.5 Estimated GFR > 60 POC Glucose 196 H 121 H Random Glucose 117 H D Calcium 8.3 L Phosphorus 1.0 L* Magnesium 1.7 05/22/22 05/22/22 05/22/22 00:48 01:42 02:21 WBC RBC Hgb Hct MCV MCH MCHC RDW Plt Count MPV Immature Gran % (Auto) Neut % (Auto) Lymph % (Auto) [place] % (Auto) Eos % (Auto) Baso % (Auto) Lymph # (Auto) [place] # (Auto) Eos # (Auto) Baso # (Auto) Abs Immat Gran (auto) Absolute Neuts (auto) Absolute Nucleated RBC Nucleated RBC % (auto) Smear Tech's Comments VBG pH 7.42 VBG pCO2 27 VBG pO2 52 VBG HCO3 17 L VBG O2 Saturation 86.0 VBG Base Excess -4.9 Sodium Potassium Chloride Carbon Dioxide Anion Gap BUN Creatinine Estim Creat Clear Calc Estimated GFR POC Glucose 137 H 171 H Random Glucose Calcium Phosphorus Magnesium 05/22/22 05/22/22 05/22/22 03:36 04:09 04:09 WBC 4.8 RBC 3.45 L D Hgb 10.8 L D Hct 28.8 L D MCV 83.5 MCH 31.3 MCHC 37.5 H RDW 14.3 Plt Count 87 L D MPV 9.7 Immature Gran % (Auto) 0.8 H Neut % (Auto) 75.9 H Lymph % (Auto) 13.6 L [place] % (Auto) 9.5 Eos % (Auto) 0.0 Baso % (Auto) 0.2 Lymph # (Auto) 0.7 L [place] # (Auto) 0.5 Eos # (Auto) 0.0 Baso # (Auto) 0.0 Abs Immat Gran (auto) 0.04 H Absolute Neuts (auto) 3.7 Absolute Nucleated RBC 0.000 Nucleated RBC % (auto) 0.0 Smear Tech's Comments VERIFIED VBG pH VBG pCO2 VBG pO2 VBG HCO3 VBG O2 Saturation VBG Base Excess Sodium 133 L Potassium 3.3 Chloride 103 Carbon Dioxide 17 L Anion Gap 16 BUN 27 H Creatinine 1.16 Estim Creat Clear Calc 77.5 Estimated GFR > 60 POC Glucose 206 H Random Glucose 208 H D Calcium 7.8 L D Phosphorus 1.5 L Magnesium 2.0 05/22/22 05/22/22 05/22/22 04:25 05:30 06:10 WBC RBC Hgb Hct MCV MCH MCHC RDW Plt Count MPV Immature Gran % (Auto) Neut % (Auto) Lymph % (Auto) [place] % (Auto) Eos % (Auto) Baso % (Auto) Lymph # (Auto) [place] # (Auto) Eos # (Auto) Baso # (Auto) Abs Immat Gran (auto) Absolute Neuts (auto) Absolute Nucleated RBC Nucleated RBC % (auto) Smear Tech's Comments VBG pH VBG pCO2 VBG pO2 VBG HCO3 VBG O2 Saturation VBG Base Excess Sodium Potassium Chloride Carbon Dioxide Anion Gap BUN Creatinine Estim Creat Clear Calc Estimated GFR POC Glucose 171 H 110 83 Random Glucose Calcium Phosphorus Magnesium 05/22/22 05/22/22 05/22/22 07:07 07:36 08:11 WBC RBC Hgb Hct MCV MCH MCHC RDW Plt Count MPV Immature Gran % (Auto) Neut % (Auto) Lymph % (Auto) [place] % (Auto) Eos % (Auto) Baso % (Auto) Lymph # (Auto) [place] # (Auto) Eos # (Auto) Baso # (Auto) Abs Immat Gran (auto) Absolute Neuts (auto) Absolute Nucleated RBC Nucleated RBC % (auto) Smear Tech's Comments VBG pH VBG pCO2 VBG pO2 VBG HCO3 VBG O2 Saturation VBG Base Excess Sodium Potassium Chloride Carbon Dioxide Anion Gap BUN Creatinine Estim Creat Clear Calc Estimated GFR POC Glucose 76 105 174 H Random Glucose Calcium Phosphorus Magnesium Microbiology Microbiology Results: Microbiology 05/20/22 23:53 Blood - Venous Blood Culture - Preliminary No growth after 24 hours. 05/20/22 22:45 Blood - Venous Blood Culture - Preliminary No growth after 24 hours. Progress Note: A&P Assessment and plan (1) Renal failure (ARF), acute on chronic: Status: Acute (2) DKA (diabetic ketoacidosis): Status: Acute Plan Assessment: 41-year-old gentleman with underlying bipolar disorder, did diabetes mellitus type 1, alcohol abuse admitted with diabetic ketoacidosis, now titrated off insulin drip. Plan: Neuro: No acute issues. Cardiac: No acute issues. Pulmonary: No acute issues. Renal: Acute kidney injury on CKD, improved. Non oliguric. Continue to monitor renal indices and urine output. Endo: diabetic ketoacidosis secondary to poor medication compliance initially requiring insulin drip, now titrated off. Continue on subcutaneous insulin. GI: No acute issues. ID: No acute issues Heme/Onc: No acute issues. Psych: Underlying bipolar disorder, continue on quetiapine and Lamictal. Miscellaneous: No acute issues. Prophylaxis: heparin Diet: diabetic Quality Stroke Does the patient have a stroke diagnosis?: No VTE Prior VTE?: No VTE Risk Level:: Medical - low VTE Device Contraindication: N/A - Device Ordered VTE Drug Contraindication: Treatment Not Indicated
[2022-05-22 11:54] LABS: Glucose, Whole Blood 265 mg/dL (60-115)
[2022-05-22 12:37] LABS: Anion Gap 17 (12-20); Blood Urea Nitrogen 22 mg/dL (9-16); Calcium 8.3 mg/dL (8.4-10.2); Carbon Dioxide 18 mmol/L (22-29); Chloride 103 mmol/L (96-108); Creatinine Clr Calc Pharmacy 83.3; Estimated Glomerular Filt Rate > 60; Glucose Random 263 mg/dL (60-115); Potassium 3.5 mmol/L (3.3-5.1); Sodium 134 mmol/L (135-145)
[2022-05-22] MEDS: Insulin Lispro 100 UNIT/ML 3 ML VIAL SUBCUT (13:15)
--- NOTE | 2022-05-22 14:10 | MHC.CM.PN ---
Met with pt to discuss d/c planning. Pt lives w/family, is independent with care needs and DM managment. 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 No services or DME used: Pt states he will walk home or request [facility] shuttle. Pt states he is 'up to date' with [facility]. Declines HCP, IMM in chart. CM to follow for changes in D/C plan needs.
[2022-05-22] MEDS: PHENobarbitaL sodium 130 MG/ML IM ONCE 264 MG IM (15:59)
[2022-05-22 16:19] LABS: Glucose, Whole Blood 59 mg/dL (60-115)
[2022-05-22 16:31] LABS: Glucose, Whole Blood 71 mg/dL (60-115)
[2022-05-22] MEDS: PHENobarbitaL sodium 130 MG/ML VIAL IM Q3Hx2 198 MG IM ×2 (19:41→22:57)
[2022-05-22 20:33] LABS: Glucose, Whole Blood 148 mg/dL (60-115)
[2022-05-22] MEDS: QUEtiapine Fumarate 400 MG TABLET PO (21:07)
[2022-05-23 04:00] VITALS: BP 130/84; PULSE 108; RESP 20; TEMP 36.5; O2SAT 97
[2022-05-23 06:51] LABS: MANUAL DIFF FLAG NO
[2022-05-23 06:58] LABS: Basophils Percent Auto 0.8 % (0-2); Eosinophils Percent Auto 0.5 % (0-4); Hematocrit 28.6 % (42.0-52.0); Hemoglobin 10.5 g/dl (14.0-18.0); Imm Gran Abs Auto 0.12 X10*3/uL (0.00-0.03); Lymphocytes Absolute Auto 1.2 X10*3/uL (1.2-4.9); Mean Corpuscular HGB Conc 36.7 g/dl (31.0-36.0); Mean Corpuscular Hemoglobin 30.9 pg (27.0-33.0); Mean Corpuscular Volume 84.1 fL (80.0-98.0); Mean Platelet Volume 9.3 fL (9.4-12.4); Monocytes Absolute Auto 0.5 X10*3/uL (0.1-1.2); Monocytes Percent Auto 13.1 % (2-11); Neutrophils Absolute Auto 2.1 x10*3/uL (2.0-8.3); Neutrophils Percent Auto 51.6 % (45-73); Platelet Count 99 X10*3/uL (160-400); Red Cell Distribution Width 14.6 % (11.0-16.0)
[2022-05-23 07:11] LABS: Glucose, Whole Blood 147 mg/dL (60-115)
[2022-05-23 07:21] LABS: Anion Gap 15 (12-20); Blood Urea Nitrogen 14 mg/dL (9-16); Calcium 8.2 mg/dL (8.4-10.2); Carbon Dioxide 25 mmol/L (22-29); Chloride 101 mmol/L (96-108); Creatinine Clr Calc Pharmacy 108.3; Estimated Glomerular Filt Rate > 60; Glucose Random 178 mg/dL (60-115); Magnesium 1.6 mg/dL (1.6-2.6); Phosphorus 2.1 mg/dL (2.7-4.5); Potassium 3.1 mmol/L (3.3-5.1); Sodium 138 mmol/L (135-145)
[2022-05-23 07:39] VITALS: BP 138/91; PULSE 92; RESP 20; TEMP 36.6; O2SAT 99
[2022-05-23] MEDS: Potassium Chloride ER 20 MEQ TAB.ER.PRT 40 MEQ PO (08:29)
[2022-05-23] MEDS: lamoTRIgine 100 MG TABLET 200 MG PO ×2 (08:30→21:11)
[2022-05-23] MEDS: PHENobarbitaL 15 MG TABLET 45 MG PO ×2 (08:32→21:11)
[2022-05-23] MEDS: Sodium Bicarbonate 650 MG TABLET PO ×4 (08:33→21:18)
[2022-05-23] MEDS: Thiamine HCL 100 MG TABLET PO (08:34)
[2022-05-23] MEDS: Insulin Glargine,Hum.rec.anlog 100 UNIT/ML 10 ML VIAL 40 UNIT SUBCUT (08:41)
--- NOTE | 2022-05-23 09:02 | HO.PM.IMPN ---
Subjective Subjective Date of Service: 05/23/22 Review of Systems Follow-up ICU downgrade DKA alcohol withdrawal Having heartburn and stomach discomfort today Physical Exam Vital Signs: Vital Signs: Last Vital Signs Temp 97.9 F 05/23/22 07:39 Pulse 92 05/23/22 07:39 Resp 20 05/23/22 07:39 BP 138/91 H 05/23/22 07:39 Pulse Ox 99 05/23/22 07:39 O2 Del Method 05/23/22 07:39 FiO2 96 05/21/22 18:00 BMI result Body Mass Index 23.8 Appearing in no acute distress lung sounds are clear to auscultation heart regular rate rhythm, clear S1, S2 positive bowel sounds, abdomen is soft, nontender neuro patient is alert x3, no focal deficits Objective Data Active Medications Acetaminophen (Acetaminophen 325 Mg Tablet) 650 mg PO Q6H PRN PRN Reason: Pain, Mild (Pain Scale 1-3) Bismuth Subsalicylate (Bismuth Subsalicylate 262 Mg Tablet) 262 mg PO ONCE ONE Stop: 05/23/22 09:01 Dextrose (Dextrose 50 % 25 Gm/50 Ml Syringe) 25 gm IVPUSH Q30M PRN PRN Reason: BG < 70 Dextrose (Dextrose 50 % 25 Gm/50 Ml Syringe) 25 gm IVPUSH Q30M PRN PRN Reason: Nursing Actions in Insulin Infusion Protocol Insulin Glargine (Insulin Glargine,Hum.Rec.Anlog 100 Unit/Ml 10 Ml Vial) 40 unit SUBCUT DAILY [facility] Last Admin: 05/23/22 08:41 Dose: 40 unit Documented By: NILSA Insulin Human Lispro (Insulin Lispro 100 Unit/Ml 3 Ml Vial) 0 unit SUBCUT QIDACHS [facility]; Protocol Last Admin: 05/23/22 08:43 Dose: Not Given Documented By: NILSA Non-Admin Reason: See Note Comments: Not Indicated Lamotrigine (Lamotrigine 100 Mg Tablet) 200 mg PO BID [facility] Last Admin: 05/23/22 08:30 Dose: 200 mg Documented By: NILSA Pharmacy Consult (Consult Rx Etoh Phenob Im/Po) 1 each MISCELLANE ONCE PRN; Protocol PRN Reason: Consult order Phenobarbital (Phenobarbital 15 Mg Tablet) 45 mg PO BID [facility] Stop: 05/24/22 21:01 Last Admin: 05/23/22 08:32 Dose: 45 mg Documented By: NILSA Phenobarbital (Phenobarbital 15 Mg Tablet) 15 mg PO BID [facility] Stop: 05/26/22 21:01 Phenobarbital (Phenobarbital 15 Mg Tablet) 15 mg PO DAILY [facility] Stop: 05/28/22 09:01 Quetiapine Fumarate (Quetiapine Fumarate 400 Mg Tablet) 400 mg PO BEDTIME [facility] Last Admin: 05/22/22 21:07 Dose: 400 mg Documented By: NIMISHA Sodium Bicarbonate (Sodium Bicarbonate 650 Mg Tablet) 650 mg PO QID [facility] Last Admin: 05/23/22 08:33 Dose: 650 mg Documented By: NILSA Thiamine HCl (Thiamine Hcl 100 Mg Tablet) 100 mg PO DAILY [facility] Last Admin: 05/23/22 08:34 Dose: 100 mg Documented By: NILSA Labs CBC & Chem 7: 05/23/22 06:44 05/23/22 06:44 Labs: Laboratory Results - last 24 hr 05/22/22 05/22/22 05/22/22 11:50 11:58 16:10 MCV MCH MCHC RDW Plt Count MPV Immature Gran % (Auto) Neut % (Auto) Lymph % (Auto) [place] % (Auto) Eos % (Auto) Baso % (Auto) Lymph # (Auto) [place] # (Auto) Eos # (Auto) Baso # (Auto) Abs Immat Gran (auto) Absolute Neuts (auto) Absolute Nucleated RBC Nucleated RBC % (auto) Anion Gap 17 Estim Creat Clear Calc 83.3 Estimated GFR > 60 POC Glucose 265 H 59 L* Random Glucose 263 H Calcium 8.3 L D Phosphorus Magnesium 05/22/22 05/22/22 05/23/22 16:28 20:29 06:44 MCV 84.1 MCH 30.9 MCHC 36.7 H RDW 14.6 Plt Count 99 L MPV 9.3 L Immature Gran % (Auto) 3.0 H Neut % (Auto) 51.6 Lymph % (Auto) 31.0 [place] % (Auto) 13.1 H Eos % (Auto) 0.5 Baso % (Auto) 0.8 Lymph # (Auto) 1.2 [place] # (Auto) 0.5 Eos # (Auto) 0.0 Baso # (Auto) 0.0 Abs Immat Gran (auto) 0.12 H Absolute Neuts (auto) 2.1 Absolute Nucleated RBC 0.000 Nucleated RBC % (auto) 0.0 Anion Gap Estim Creat Clear Calc Estimated GFR POC Glucose 71 148 H Random Glucose Calcium Phosphorus Magnesium 05/23/22 05/23/22 06:44 07:07 MCV MCH MCHC RDW Plt Count MPV Immature Gran % (Auto) Neut % (Auto) Lymph % (Auto) [place] % (Auto) Eos % (Auto) Baso % (Auto) Lymph # (Auto) [place] # (Auto) Eos # (Auto) Baso # (Auto) Abs Immat Gran (auto) Absolute Neuts (auto) Absolute Nucleated RBC Nucleated RBC % (auto) Anion Gap 15 Estim Creat Clear Calc 108.3 Estimated GFR > 60 POC Glucose 147 H Random Glucose 178 H Calcium 8.2 L Phosphorus 2.1 L Magnesium 1.6 Microbiology Microbiology Results: Microbiology 05/20/22 23:53 Blood Culture - Preliminary Blood - Venous No growth after 48 hours. 05/20/22 22:45 Blood Culture - Preliminary Blood - Venous No growth after 48 hours. Assessment and Plan (1) Hypophosphatemia: Status: Acute Plan 41-year-old man admitted to ICU for DKA secondary to noncompliance with insulin regimen. Treated with insulin drip, resolved Dyspepsia Pepto-Bismol Continue Pepcid Hypokalemia Replete with potassium Diabetic ketoacidosis with diabetes mellitus type 1 Treated ICU with insulin drip Continue sliding scale, ADA diet, Lantus Discussed importance of compliance with medication regimen Pancytopenia Secondary to alcohol use Stable Follow CBC History of alcohol abuse Started on phenobarbital for alcohol withdrawal symptoms Discussed importance alcohol cessation Continue thiamine and folic acid Mental health, bipolar disorder Continue home medications DVT prophylaxis with Lovenox Attending Dr. Kramer Full code Continue hospitalization for treatment diabetic ketoacidosis with close monitoring of blood sugars and alcohol withdrawal symptoms Quality Stroke Does the patient have a stroke diagnosis?: No VTE Prior VTE?: No VTE Risk Level:: Medical - low VTE Device Contraindication: N/A - Device Ordered VTE Drug Contraindication: Treatment Not Indicated
[2022-05-23] MEDS: Bismuth Subsalicylate 262 MG TABLET PO (10:24)
--- NOTE | 2022-05-23 10:35 | P.CDIC_ITS ---
CDI Concurrent Query Documentation Clarification: PHYSICIAN'S DOCUMENTATION REQUEST Date of Query: 05/23/22 1036 Patient Name: Yeison Pereyra Admit Date: 05/21/22 Dear Doctor, A review of the medical record indicates additional documentation may be needed. Please review below and update the documentation accordingly. Clinical Indicators: Documentation in the record includes the diagnosis of SHEILA and CKD. The following clinical information was noted in the record: Risk Factors/Clinical Indicators/Treatments ICU note 70 - Assessment/plan: Renal failure, (ARF) acute on chronic. Improved, continue to monitor renal indices and urine output. Please clarify which of the following most accurately represents the patient's renal status: * Acute on chronic kidney disease Stage 1-5 * Acute kidney disease (ARF) * Other (please specify) * Unable to determine Criteria for SHEILA* Stages of Chronic Kidney Disease* 1. Increase in serum creatinine by ? 0.3 mg/dL Level Description GFR (?26.5 micromol/L) within 48 hours, or G1 Normal or High > 90 2. Increase in serum creatinine to ?1.5 times baseline, G2 Mildly decreased 60 ? 89 which is known or presumed to have occurred within 7 days, or G3a Mildly to moderately decreased 45 ? 59 3. Urine volume <0.5 mL/kg/hour for six hours G3b Moderately to severely decreased 30 - 44 G4 Severely decreased 15 ? 29 G5 Kidney failure < 15 *Source: Kidney Disease: Improving Global Outcomes (KDIGO) 2012 Use of terms such as suspected, likely, concern for, or probable (associated with a specific diagnosis that is being evaluated, monitored, or treated as if it exists) are acceptable and can be coded in the inpatient setting, when documented at the time of discharge. Thank you, Breanna Araya [facility], [facility] Extension: [phone] Please use your independent medical judgment in providing your response. THIS QUERY IS PART OF THE PERMANENT MEDICAL RECORD Other Diagnosis: See note
[2022-05-23 11:03] VITALS: BP 144/98; PULSE 101; RESP 16; TEMP 36.8; O2SAT 99
[2022-05-23 11:09] LABS: Glucose, Whole Blood 103 mg/dL (60-115)
[2022-05-23] MEDS: Enoxaparin Sodium 40 MG/0.4 ML SYRINGE SUBCUT (11:53)
[2022-05-23] MEDS: Famotidine/PF 20 MG/2 ML VIAL IVPUSH ×2 (12:12→21:12)
[2022-05-23 13:09] LABS: Lipase < 4 U/L (8-78)
[2022-05-23 16:00] VITALS: BP 152/97; PULSE 91; RESP 20; TEMP 36.7; O2SAT 98
--- NOTE | 2022-05-23 16:26 | MHC.RECOVRN ---
This junior copywriter met w/ pt, pt alert, sitting in bed. Pt reports last ETOH use 3 weeks ago, pt reports drinking 10 nips daily for about 1 month, then quitting cold turkey. Pt reports recovery time for 2 years, prior to one month reoccurrence. Pt states was keeping busy, going to meetings, taking Naltrexone,which contributed to 2 years recovery time. Pt states that PCP and psychiatrist were not agreeing on medications for pt, pt was having difficulty sleeping, pt reports started drinking again due to difficulty sleeping. Pt states no history of seizures related to ETOH withdrawal. Pt reports treatment history in the past, detox 2 years ago. Pt expressed interest in starting Naltrexone again. T/W and pt reviewed recovery resources, resource folder left at bedside. This junior copywriter reviewed risks with quitting EOTH abruptly. Pt verbalized understanding. Provider aware.
[2022-05-23 16:29] LABS: Glucose, Whole Blood 82 mg/dL (60-115)
[2022-05-23] MEDS: Magnesium Hydrox/Alum Hydrox 30 ML ORAL.SUSP PO (16:56)
[2022-05-23 19:33] VITALS: BP 147/100; PULSE 86; RESP 18; TEMP 36.8; O2SAT 98
[2022-05-23 20:38] LABS: Glucose, Whole Blood 82 mg/dL (60-115)
[2022-05-23] MEDS: QUEtiapine Fumarate 400 MG TABLET PO (21:11)
[2022-05-23] MEDS: cloNIDine HCL 0.2 MG TABLET PO (21:11)
[2022-05-23] MEDS: traZODone HCL 100 MG TABLET 200 MG PO (21:18)
[2022-05-23 23:47] VITALS: BP 116/78; PULSE 84; RESP 14; TEMP 37.1; O2SAT 97
[2022-05-24 03:02] VITALS: BP 125/92; PULSE 116; RESP 18; TEMP 36.7; O2SAT 99
[2022-05-24 06:00] VITALS: BMI 25.3
[2022-05-24 07:32] VITALS: BP 140/90; PULSE 104; RESP 18; TEMP 36.9; O2SAT 98
[2022-05-24 07:39] LABS: Glucose, Whole Blood 153 mg/dL (60-115)
[2022-05-24] MEDS: PHENobarbitaL 15 MG TABLET 45 MG PO (08:39)
[2022-05-24] MEDS: Thiamine HCL 100 MG TABLET PO (08:39)
[2022-05-24] MEDS: Folic Acid 1 MG TABLET PO (08:40)
[2022-05-24] MEDS: lamoTRIgine 100 MG TABLET 200 MG PO (08:40)
[2022-05-24] MEDS: cloNIDine HCL 0.2 MG TABLET PO (08:40)
[2022-05-24] MEDS: Escitalopram Oxalate 20 MG TABLET PO (08:40)
[2022-05-24] MEDS: Famotidine 20 MG TABLET PO (08:40)
[2022-05-24] MEDS: Sodium Bicarbonate 650 MG TABLET PO (08:40)
[2022-05-24] MEDS: Insulin Lispro 100 UNIT/ML 3 ML VIAL SUBCUT (08:42)
[2022-05-24] MEDS: Insulin Glargine,Hum.rec.anlog 100 UNIT/ML 10 ML VIAL 40 UNIT SUBCUT (08:42)
[2022-05-24 08:51] VITALS: PULSE 111; O2SAT 99
[2022-05-24] MEDS: QUEtiapine Fumarate 200 MG TABLET PO (09:03)
[2022-05-24 10:15] LABS: Anion Gap 17 (12-20); Blood Urea Nitrogen 15 mg/dL (9-16); Calcium 9.6 mg/dL (8.4-10.2); Carbon Dioxide 27 mmol/L (22-29); Chloride 95 mmol/L (96-108); Estimated Glomerular Filt Rate > 60; Glucose Random 250 mg/dL (60-115); Potassium 3.8 mmol/L (3.3-5.1); Sodium 135 mmol/L (135-145)
[2022-05-24 11:11] VITALS: BP 103/71; PULSE 83; RESP 18; TEMP 37.1; O2SAT 98
[2022-05-24 11:19] LABS: Glucose, Whole Blood 88 mg/dL (60-115)
--- NOTE | 2022-05-24 11:54 | HO.PM.IMPN ---
Subjective Subjective Date of Service: 10/09/22 Interval History: patient has been seen today. Denies any stomach pain, nausea, vomiting. Per RN patient has been tolerating diet okay. Also reported patient has been independent of Ambulation Physical Exam Vital Signs: Vital Signs: Last Vital Signs Temp 98.7 F 05/24/22 11:11 Pulse 83 05/24/22 11:11 Resp 18 05/24/22 11:11 BP 103/71 05/24/22 11:11 Pulse Ox 98 05/24/22 11:11 O2 Del Method 05/24/22 11:11 FiO2 96 05/21/22 18:00 BMI result Body Mass Index 25.3 Gen: Appears be in no acute distress HEENT: NCAT, Moist mucosa. Pulmonary: Vesicular breath sounds, fair air entry CVS: Normal S1-S2 Abdomen: BS+, Soft, Nontender Extremities: Warm well perfused Neuro: Alert and awake. Objective Data Active Medications Acetaminophen (Acetaminophen 325 Mg Tablet) 650 mg PO Q6H PRN PRN Reason: Pain, Mild (Pain Scale 1-3) Al Hydroxide/Mg Hydroxide (Magnesium Hydrox/Alum Hydrox 30 Ml Oral.Susp) 30 ml PO Q4H PRN PRN Reason: Heartburn Last Admin: 05/23/22 16:56 Dose: 30 ml Documented By: GERALDINE Clonidine HCl (Clonidine Hcl 0.2 Mg Tablet) 0.2 mg PO BID [facility]; Protocol Last Admin: 05/24/22 08:40 Dose: 0.2 mg Documented By: MARK Dextrose (Dextrose 50 % 25 Gm/50 Ml Syringe) 25 gm IVPUSH Q30M PRN PRN Reason: BG < 70 Dextrose (Dextrose 50 % 25 Gm/50 Ml Syringe) 25 gm IVPUSH Q30M PRN PRN Reason: Nursing Actions in Insulin Infusion Protocol Enoxaparin Sodium (Enoxaparin Sodium 40 Mg/0.4 Ml Syringe) 40 mg SUBCUT Q24H [facility] Last Admin: 05/23/22 11:53 Dose: 40 mg Documented By: GERALDINE Escitalopram Oxalate (Escitalopram Oxalate 20 Mg Tablet) 20 mg PO DAILY [facility] Last Admin: 05/24/22 08:40 Dose: 20 mg Documented By: MARK Famotidine (Famotidine 20 Mg Tablet) 20 mg PO DAILY [facility] Last Admin: 05/24/22 08:40 Dose: 20 mg Documented By: MARK Folic Acid (Folic Acid 1 Mg Tablet) 1 mg PO DAILY [facility] Last Admin: 05/24/22 08:40 Dose: 1 mg Documented By: MARK Insulin Glargine (Insulin Glargine,Hum.Rec.Anlog 100 Unit/Ml 10 Ml Vial) 40 unit SUBCUT DAILY [facility] Last Admin: 05/24/22 08:42 Dose: 40 unit Documented By: MARK Insulin Human Lispro (Insulin Lispro 100 Unit/Ml 3 Ml Vial) 0 unit SUBCUT QIDACHS [facility]; Protocol Last Admin: 05/24/22 08:42 Dose: 2 unit Documented By: MARK Lamotrigine (Lamotrigine 100 Mg Tablet) 200 mg PO BID [facility] Last Admin: 05/24/22 08:40 Dose: 200 mg Documented By: MARK Pharmacy Consult (Consult Rx Etoh Phenob Im/Po) 1 each MISCELLANE ONCE PRN; Protocol PRN Reason: Consult order Phenobarbital (Phenobarbital 15 Mg Tablet) 45 mg PO BID [facility] Stop: 05/24/22 21:01 Last Admin: 05/24/22 08:39 Dose: 45 mg Documented By: MARK Phenobarbital (Phenobarbital 15 Mg Tablet) 15 mg PO BID [facility] Stop: 05/26/22 21:01 Phenobarbital (Phenobarbital 15 Mg Tablet) 15 mg PO DAILY [facility] Stop: 05/28/22 09:01 Quetiapine Fumarate (Quetiapine Fumarate 400 Mg Tablet) 400 mg PO BEDTIME [facility] Last Admin: 05/23/22 21:11 Dose: 400 mg Documented By: MINA Quetiapine Fumarate (Quetiapine Fumarate 200 Mg Tablet) 200 mg PO BID [facility] Last Admin: 05/24/22 09:03 Dose: 200 mg Documented By: MARK Thiamine HCl (Thiamine Hcl 100 Mg Tablet) 100 mg PO DAILY [facility] Last Admin: 05/24/22 08:39 Dose: 100 mg Documented By: MARK Trazodone HCl (Trazodone Hcl 100 Mg Tablet) 200 mg PO BEDTIME [facility] Last Admin: 05/23/22 21:18 Dose: 200 mg Documented By: MINA Zolpidem Tartrate (Zolpidem Tartrate 5 Mg Tablet) 5 mg PO BEDTIME PRN PRN Reason: Sleep Labs 05/23/22 06:44 05/24/22 09:00 Labs: Laboratory Results - last 24 hr 05/23/22 05/23/22 05/23/22 06:44 16:20 20:14 Anion Gap Estim Creat Clear Calc Estimated GFR POC Glucose 82 82 Random Glucose Calcium Lipase < 4 L 05/24/22 05/24/22 05/24/22 07:35 09:00 11:15 Anion Gap 17 Estim Creat Clear Calc 101.0 Estimated GFR > 60 POC Glucose 153 H 88 Random Glucose 250 H D Calcium 9.6 D Lipase Assessment and Plan (1) DKA (diabetic ketoacidosis): Status: Resolved (2) Renal failure (ARF), acute on chronic: Status: Resolved Plan 41-year-old male with a past medical history of alcohol abuse, anxiety, depression, bipolar , diabetes presented to the hospital with a chief complaint of nausea/ vomiting; noted to be in DKA. Admitted to the ICU for insulin drip. Patient was also noted to be in severe metabolic acidosis, started on sodium bicarbonate tablets. As a DKA resolved patient was transitioned to the medical floors. Patient was started on phenobarbital for alcohol withdrawal. Diabetes: Patient continued on his home Lantus 50 units and insulin sliding scale. Recommended close follow-up with his compliance reviewer upon discharge. Patient reported that he has prescriptions and diabetic supplies available at home. DKA: Resolved Metabolic acidosis: Resolved. discontinued sodium bicarbonate tablets. SHEILA: Resolved Pancytopenia: Presumed to in the setting of alcohol use. Patient denies any signs of bleeding. Recommended close follow-up with PCP for repeat labs in a week. Alcohol abuse: patient has been on phenobarbital taper. Continue thiamine folate and multivitamins. History of anxiety/ depression/ bipolar: Continue home escitalopram, clonidine, lamotrigine, Seroquel, trazodone. IV access: pt has IJ placed in ICU. Will discontinie today. DVT prophylaxis: SCD boots Code status: Full code Quality Stroke Does the patient have a stroke diagnosis?: No VTE Prior VTE?: No VTE Risk Level:: Medical - low VTE Device Contraindication: N/A - Device Ordered VTE Drug Contraindication: Treatment Not Indicated
--- NOTE | 2022-05-24 12:01 | P.PNADD_ITS ---
Subjective Subjective Reason For Visit: Diabetic Ketoacidosis Diagnostics Vital Signs (24Hr): Vital Signs - 24 hr 05/23/22 16:00 05/23/22 19:33 05/23/22 23:47 Temperature 98.1 F 98.3 F 98.8 F Pulse Rate 91 86 84 Respiratory Rate 20 18 14 Blood Pressure 152/97 H 147/100 H 116/78 Pulse Oximetry 98 98 97 Oxygen Delivery Method Room Air Room Air Room Air 05/24/22 03:02 05/24/22 07:32 05/24/22 11:11 Temperature 98.1 F 98.4 F 98.7 F Pulse Rate 116 H 104 H 83 Respiratory Rate 18 18 18 Blood Pressure 125/92 H 140/90 H 103/71 Pulse Oximetry 99 98 98 Oxygen Delivery Method Room Air Room Air Room Air 05/24/22 08:51 Temperature Pulse Rate 111 H Respiratory Rate Blood Pressure Pulse Oximetry 99 Oxygen Delivery Method BMI result Body Mass Index 25.3 Labs Results: 05/23/22 06:44 05/24/22 09:00 Labs: Laboratory Results - last 48 hr 05/22/22 05/22/22 05/22/22 11:58 16:10 16:28 WBC RBC Hgb Hct MCV MCH MCHC RDW Plt Count MPV Immature Gran % (Auto) Neut % (Auto) Lymph % (Auto) [place] % (Auto) Eos % (Auto) Baso % (Auto) Lymph # (Auto) [place] # (Auto) Eos # (Auto) Baso # (Auto) Abs Immat Gran (auto) Absolute Neuts (auto) Absolute Nucleated RBC Nucleated RBC % (auto) Sodium 134 L Potassium 3.5 Chloride 103 Carbon Dioxide 18 L Anion Gap 17 BUN 22 H Creatinine 1.08 Estim Creat Clear Calc 83.3 Estimated GFR > 60 POC Glucose 59 L* 71 Random Glucose 263 H Calcium 8.3 L D Phosphorus Magnesium Lipase 05/22/22 05/23/22 05/23/22 20:29 06:44 06:44 WBC 4.0 L RBC 3.40 L Hgb 10.5 L Hct 28.6 L MCV 84.1 MCH 30.9 MCHC 36.7 H RDW 14.6 Plt Count 99 L MPV 9.3 L Immature Gran % (Auto) 3.0 H Neut % (Auto) 51.6 Lymph % (Auto) 31.0 [place] % (Auto) 13.1 H Eos % (Auto) 0.5 Baso % (Auto) 0.8 Lymph # (Auto) 1.2 [place] # (Auto) 0.5 Eos # (Auto) 0.0 Baso # (Auto) 0.0 Abs Immat Gran (auto) 0.12 H Absolute Neuts (auto) 2.1 Absolute Nucleated RBC 0.000 Nucleated RBC % (auto) 0.0 Sodium 138 Potassium 3.1 L Chloride 101 Carbon Dioxide 25 Anion Gap 15 BUN 14 Creatinine 0.83 Estim Creat Clear Calc 108.3 Estimated GFR > 60 POC Glucose 148 H Random Glucose 178 H Calcium 8.2 L Phosphorus 2.1 L Magnesium 1.6 Lipase < 4 L 05/23/22 05/23/22 05/23/22 07:07 11:05 16:20 WBC RBC Hgb Hct MCV MCH MCHC RDW Plt Count MPV Immature Gran % (Auto) Neut % (Auto) Lymph % (Auto) [place] % (Auto) Eos % (Auto) Baso % (Auto) Lymph # (Auto) [place] # (Auto) Eos # (Auto) Baso # (Auto) Abs Immat Gran (auto) Absolute Neuts (auto) Absolute Nucleated RBC Nucleated RBC % (auto) Sodium Potassium Chloride Carbon Dioxide Anion Gap BUN Creatinine Estim Creat Clear Calc Estimated GFR POC Glucose 147 H 103 82 Random Glucose Calcium Phosphorus Magnesium Lipase 05/23/22 05/24/22 05/24/22 20:14 07:35 09:00 WBC RBC Hgb Hct MCV MCH MCHC RDW Plt Count MPV Immature Gran % (Auto) Neut % (Auto) Lymph % (Auto) [place] % (Auto) Eos % (Auto) Baso % (Auto) Lymph # (Auto) [place] # (Auto) Eos # (Auto) Baso # (Auto) Abs Immat Gran (auto) Absolute Neuts (auto) Absolute Nucleated RBC Nucleated RBC % (auto) Sodium 135 Potassium 3.8 D Chloride 95 L Carbon Dioxide 27 Anion Gap 17 BUN 15 Creatinine 0.89 Estim Creat Clear Calc 101.0 Estimated GFR > 60 POC Glucose 82 153 H Random Glucose 250 H D Calcium 9.6 D Phosphorus Magnesium Lipase 05/24/22 11:15 WBC RBC Hgb Hct MCV MCH MCHC RDW Plt Count MPV Immature Gran % (Auto) Neut % (Auto) Lymph % (Auto) [place] % (Auto) Eos % (Auto) Baso % (Auto) Lymph # (Auto) [place] # (Auto) Eos # (Auto) Baso # (Auto) Abs Immat Gran (auto) Absolute Neuts (auto) Absolute Nucleated RBC Nucleated RBC % (auto) Sodium Potassium Chloride Carbon Dioxide Anion Gap BUN Creatinine Estim Creat Clear Calc Estimated GFR POC Glucose 88 Random Glucose Calcium Phosphorus Magnesium Lipase Imaging Radiology Impressions: ITS Impressions Chest X-Ray 05/20/22 23:57 IMPRESSION: Right IJ central line tip in the region of the cavoatrial junction. Medications Medications Current Medications Acetaminophen (Acetaminophen 325 Mg Tablet) 650 mg PO Q6H PRN PRN Reason: Pain, Mild (Pain Scale 1-3) Al Hydroxide/Mg Hydroxide (Magnesium Hydrox/Alum Hydrox 30 Ml Oral.Susp) 30 ml PO Q4H PRN PRN Reason: Heartburn Last Admin: 05/23/22 16:56 Dose: 30 ml Clonidine HCl (Clonidine Hcl 0.2 Mg Tablet) 0.2 mg PO BID [facility]; Protocol Last Admin: 05/24/22 08:40 Dose: 0.2 mg Dextrose (Dextrose 50 % 25 Gm/50 Ml Syringe) 25 gm IVPUSH Q30M PRN PRN Reason: BG < 70 Dextrose (Dextrose 50 % 25 Gm/50 Ml Syringe) 25 gm IVPUSH Q30M PRN PRN Reason: Nursing Actions in Insulin Infusion Protocol Enoxaparin Sodium (Enoxaparin Sodium 40 Mg/0.4 Ml Syringe) 40 mg SUBCUT Q24H [facility] Last Admin: 05/23/22 11:53 Dose: 40 mg Escitalopram Oxalate (Escitalopram Oxalate 20 Mg Tablet) 20 mg PO DAILY [facility] Last Admin: 05/24/22 08:40 Dose: 20 mg Famotidine (Famotidine 20 Mg Tablet) 20 mg PO DAILY [facility] Last Admin: 05/24/22 08:40 Dose: 20 mg Folic Acid (Folic Acid 1 Mg Tablet) 1 mg PO DAILY [facility] Last Admin: 05/24/22 08:40 Dose: 1 mg Insulin Glargine (Insulin Glargine,Hum.Rec.Anlog 100 Unit/Ml 10 Ml Vial) 40 unit SUBCUT DAILY [facility] Last Admin: 05/24/22 08:42 Dose: 40 unit Insulin Human Lispro (Insulin Lispro 100 Unit/Ml 3 Ml Vial) 0 unit SUBCUT QIDACHS [facility]; Protocol Last Admin: 05/24/22 08:42 Dose: 2 unit Lamotrigine (Lamotrigine 100 Mg Tablet) 200 mg PO BID [facility] Last Admin: 05/24/22 08:40 Dose: 200 mg Pharmacy Consult (Consult Rx Etoh Phenob Im/Po) 1 each MISCELLANE ONCE PRN; Protocol PRN Reason: Consult order Phenobarbital (Phenobarbital 15 Mg Tablet) 45 mg PO BID [facility] Stop: 05/24/22 21:01 Last Admin: 05/24/22 08:39 Dose: 45 mg Phenobarbital (Phenobarbital 15 Mg Tablet) 15 mg PO BID [facility] Stop: 05/26/22 21:01 Phenobarbital (Phenobarbital 15 Mg Tablet) 15 mg PO DAILY [facility] Stop: 05/28/22 09:01 Quetiapine Fumarate (Quetiapine Fumarate 400 Mg Tablet) 400 mg PO BEDTIME [facility] Last Admin: 05/23/22 21:11 Dose: 400 mg Quetiapine Fumarate (Quetiapine Fumarate 200 Mg Tablet) 200 mg PO BID [facility] Last Admin: 05/24/22 09:03 Dose: 200 mg Thiamine HCl (Thiamine Hcl 100 Mg Tablet) 100 mg PO DAILY [facility] Last Admin: 05/24/22 08:39 Dose: 100 mg Trazodone HCl (Trazodone Hcl 100 Mg Tablet) 200 mg PO BEDTIME [facility] Last Admin: 05/23/22 21:18 Dose: 200 mg Zolpidem Tartrate (Zolpidem Tartrate 5 Mg Tablet) 5 mg PO BEDTIME PRN PRN Reason: Sleep Allergies Allergies Allergy/AdvReac Type Severity Reaction Status Date / Time clonazepam Allergy Unknown Unknown Verified 02/08/22 09:46 meropenem [MEROPENEM] Allergy Unknown SWELLING Verified 02/08/22 09:46 penicillin G procaine Allergy Unknown itching Verified 02/08/22 09:46 Penicillins [PENICILLINS] Allergy Unknown SWELLING Verified 02/08/22 09:46 lorazepam [From Ativan] Allergy Anaphylaxis Verified 02/08/22 09:46 Assessment & Plan Assessment & Plan Plan 41-year-old man admitted to ICU for DKA secondary to noncompliance with insulin regimen. Treated with insulin drip, resolved Dyspepsia Pepto-Bismol Continue Pepcid Hypokalemia Replete with potassium Diabetic ketoacidosis with diabetes mellitus type 1 Treated ICU with insulin drip Continue sliding scale, ADA diet, Lantus Discussed importance of compliance with medication regimen Pancytopenia Secondary to alcohol use Stable Follow CBC History of alcohol abuse Started on phenobarbital for alcohol withdrawal symptoms Discussed importance alcohol cessation Continue thiamine and folic acid Mental health, bipolar disorder Continue home medications DVT prophylaxis with Lovenox Attending Dr. Kramer Full code Continue hospitalization for treatment diabetic ketoacidosis with close monitoring of blood sugars and alcohol withdrawal symptoms I spent minutes with the patient and/or on the patient floor today, greater than?50% of which was spent counseling/coordinating care.
[2022-05-24] MEDS: Enoxaparin Sodium 40 MG/0.4 ML SYRINGE SUBCUT (12:35)
--- NOTE | 2022-05-24 13:58 | PC.NURSE ---
1350-central line removed per order. pr tolerated well. cath intact
--- NOTE | 2022-05-24 14:30 | MHC.CLN ---
F/U DIET=DIABETIC 2200 KCALS. INTAKE APPEARS VERY GOOD, 75-100%. NO ADDITIONAL NUTRITION INTERVENTIONS AT THIS TIME. CONTINUE TO FOLLOW FOR INTAKE.
--- NOTE | 2022-05-24 14:57 | PM.DS ---
DS: Providers Provider Date of Service: 05/24/22 Date of admission: 05/21/22 01:27 Primary care physician: Beena Melo MD Consults: 05/22/22 14:45 Addiction Medicine Routine Consulting Provider: Reena Jose Reason for consultation: alcohol abuse Has provider been notified: No DS: Diagnosis Discharge Diagnosis (1) DKA (diabetic ketoacidosis): Status: Acute DS: Summary Hospital Course Hospital Course: 41-year-old male with a past medical history of alcohol abuse, anxiety, depression, bipolar , diabetes presented to the hospital with a chief complaint of nausea/ vomiting; noted to be in DKA.? Admitted to the ICU for insulin drip.? Patient was also noted to be in severe metabolic acidosis, started on sodium bicarbonate tablets.? As a DKA resolved patient was transitioned to the medical floors.? Patient was started on phenobarbital for alcohol withdrawal. ? Diabetes: Patient continued on his home Lantus 50 units and insulin sliding scale. Recommended close follow-up with his community coordinator for high school upon discharge.? Patient reported that he has prescriptions and diabetic supplies available at home. DKA: Resolved Metabolic acidosis: Resolved.? discontinued sodium bicarbonate tablets. SHEILA:? Resolved Pancytopenia:? Presumed to in the setting of alcohol use.? Patient denies any signs of bleeding.? Recommended close follow-up with PCP for repeat labs in a week. Alcohol abuse: ? patient has been on phenobarbital taper.? Continue thiamine folate and multivitamins.? Patient reports his last drink was about 2 weeks ago. Does not show any signs of alcohol withdrawal. History of anxiety/ depression/ bipolar: Continue home escitalopram, clonidine, lamotrigine, Seroquel, trazodone.? IV access: pt has IJ placed in ICU. Will discontinie today. DVT prophylaxis:? SCD boots Code status:? Full code Time Spent with Patient Time attestation: Total time spent providing and/or coordinating discharge services: Discharge coordination time: Less than 30 minutes Quality: Safe Use of Opioids Does Pt have an Active Cancer Diagnosis on the Problem List?: No Quality: Stroke Does the patient have a stroke diagnosis?: No Physical Exam Vital Signs: Vital Signs: Last Vital Signs Temp 98.7 F 05/24/22 11:11 Pulse 83 05/24/22 11:11 Resp 18 05/24/22 11:11 BP 103/71 05/24/22 11:11 Pulse Ox 98 05/24/22 11:11 O2 Del Method 05/24/22 11:11 FiO2 96 05/21/22 18:00 BMI result Body Mass Index 25.3 Gen: Appears be in no acute distress HEENT: NCAT, Moist mucosa. Pulmonary: Vesicular breath sounds, fair air entry CVS: Normal S1-S2 Abdomen: BS+, Soft, Nontender Extremities: Warm well perfused Neuro: Alert and awake. DS: Data Data Completed and Pending Completed studies during hospitalization [Text1]: Procedures Detoxification Services for Substance Abuse Treatment (03/14/22) Insertion of Endotracheal Airway into Trachea, Via Natural or Artificial Opening (01/27/22) Insertion of Infusion Device into Superior Vena Cava, Percutaneous Approach (01/27/22) Respiratory Ventilation, Less than 24 Consecutive Hours (01/27/22) Labs on day of discharge: Laboratory Results - last 24 hr 05/23/22 05/23/22 05/24/22 16:20 20:14 07:35 Sodium Potassium Chloride Carbon Dioxide Anion Gap BUN Creatinine Estim Creat Clear Calc Estimated GFR POC Glucose 82 82 153 H Random Glucose Calcium 05/24/22 05/24/22 09:00 11:15 Sodium 135 Potassium 3.8 D Chloride 95 L Carbon Dioxide 27 Anion Gap 17 BUN 15 Creatinine 0.89 Estim Creat Clear Calc 101.0 Estimated GFR > 60 POC Glucose 88 Random Glucose 250 H D Calcium 9.6 D Preliminary micro results at discharge 05/20/22 23:53 Blood Culture - Preliminary Blood - Venous No growth after 48 hours. 05/20/22 22:45 Blood Culture - Preliminary Blood - Venous No growth after 48 hours. Discharge Plan Discharge Anticipated Discharge Date/Time: 05/24/22 14:48 Patient Disposition: Home, Self-Care Discharge Diagnosis: DKA Referrals: Beena Melo MD [Primary Care Provider] - 1 Week Discharge Medications: Continued (DME) lancets [TRUEplus Lancets] 33 gauge misc See Rx Instructions .Route Qty: 200 11RF Rx Instructions: Four times a day insulin aspart U-100 [Novolog Flexpen U-100 Insulin] 100 unit/mL (3 mL) insulin pen 1 - 25 unit subcut QID Qty: 30 3RF (DME) pen needle, diabetic [BD July 2nd Gen Pen Needle] 32 gauge x 5/32 needle See Rx Instructions .MEDSUPPLY Qty: 150 4RF Rx Instructions: 5 times a day (DME) FreeStyle Lite Strips Strip See Rx Instructions .Route Qty: 150 11RF Rx Instructions: Four times a day famotidine [Pepcid AC] 20 mg Tablet 20 mg PO DAILY quetiapine 400 mg tablet extended release 24 hr 1 tab PO DAILY lamotrigine 200 mg tablet 1 tab PO BID insulin glargine [Lantus Solostar U-100 Insulin] 100 unit/mL (3 mL) insulin pen 50 unit subcut BEDTIME zolpidem 5 mg tablet 1 tab PO BEDTIME PRN (Reason: Sleep) quetiapine [Seroquel] 400 mg tablet 400 mg PO BEDTIME trazodone 100 mg tablet 200 mg PO BEDTIME clonidine HCl 0.2 mg tablet 0.2 mg PO BID citalopram 40 mg tablet 40 mg PO DAILY thiamine HCl (vitamin B1) 100 mg tablet 100 mg PO DAILY folic acid 1 mg tablet 1 mg PO DAILY magnesium oxide 400 mg (241.3 mg magnesium) tablet 400 mg PO BID Discharge Orders: Discharge Order (Routine); Ordered 05/24/22 Ordered By: Ab Kim Activity on Discharge: As tolerated Stand Alone Forms: Patient Portal Discharge page Other Ambulatory Orders: Basic Metabolic Panel (Routine) Timeframe: 1 Week Facility: [facility] - Location: Laboratory Ordered By: Ab Kim Complete Blood Count Auto Diff (Routine) Timeframe: 1 Week Facility: [facility] - Location: Laboratory Ordered By: Ab Kim Care Plan Goals: Full code Health Concerns: please continue taking your home insulin regimen. Plan of Treatment: Please continue taking home medications. Assessment: you presented with DKA- resolved. Also had renal insufficiency during this admission- currently creatinine improved to baseline. please follow-up with your community coordinator for high school in a week. Continue taking your home insulins, monitor your fingerstick glucose Before meals and bedtime Follow-up with your PCP and have repeat blood work done for basic metabolic panel and complete blood picture in a week to ensure continued improvement. Follow-up with Nephrology as outpatient
--- NOTE | 2022-05-24 15:01 | MHC.CM.PN ---
Patient has been medically cleared for dc to home, self care. Last IMM addressed on 05/22/2022.
--- NOTE | 2022-05-24 15:57 | PC.NURSE ---
1545-pt discharge information reviewed with patient. questions answered. 1555-pt left by ambulation. did not want to wait for transport. pt was stable and ambulated well upon discharge
--- NOTE | 2022-05-26 08:21 | MHC.CDI.RETR ---
Retrospective Query PHYSICIAN'S DOCUMENTATION REQUEST Date of Query: 05/26/2221 Patient Name: Yeison Pereyra Admit Date: 05/21/22 Dear Doctor, A review of the medical record indicates additional documentation may be needed. Please review below and update the documentation accordingly. Clinical Indicators: Risk Factors/Clinical Indicators/Treatments ICU note 05/21 - Acute on chronic renal failure, cr. down from 3-1/2 down to about 1.8 at this point he might have enough chronic renal disease to require oral bicarb replacement. ICU note 05/22 - SHEILA on CKD improved, monitor. Please clarify which of the following accurately represents the patient's renal status: SHEILA on CKD Stage 1-5 Other (please specify) Unable to determine Criteria for SHEILA* Stages of Chronic Kidney Disease* 1. Increase in serum creatinine by ? 0.3 mg/dL Level Description GFR (?26.5 micromol/L) within 48 hours, or G1 Normal or High > 90 2. Increase in serum creatinine to ?1.5 times baseline, G2 Mildly decreased 60 ? 89 which is known or presumed to have occurred within 7 days, or G3a Mildly to moderately decreased 45 ? 59 3. Urine volume <0.5 mL/kg/hour for six hours G3b Moderately to severely decreased 30 - 44 G4 Severely decreased 15 ? 29 G5 Kidney failure < 15 *Source: Kidney Disease: Improving Global Outcomes (KDIGO) 2012 Use of terms such as suspected, likely, concern for, or probable (associated with a specific diagnosis that is being evaluated, monitored, or treated as if it exists) are acceptable and can be coded in the inpatient setting, when documented at the time of discharge. Thank you, Breanna Araya [facility], CDIS Extension: [phone] Please use your independent medical judgment in providing your response. THIS QUERY IS PART OF THE PERMANENT MEDICAL RECORD
== END 2022-05-24 15:57 | disposition home or self-care (01) | DRG 638 ==
LOC: HO.ED 22:20 → HO.ICU 05-21 01:50 → HO.IMC 05-22 18:11
PROVIDERS: Internal Medicine Pulmonary Disease; Nurse Practitioner Acute Care; Admitting Provider Internal Medicine Cardiovascular Disease; Emergency Provider Student in an Organized Health Care Education/Training Program; PCP Internal Medicine; Visit Provider Hospitalist
DX: E10.11 Type 1 diabetes mellitus with ketoacidosis with coma (principal); D61.818 Other pancytopenia; N17.9 Acute kidney failure, unspecified; E86.0 Dehydration; E83.42 Hypomagnesemia; F31.9 Bipolar disorder, unspecified; N18.9 Chronic kidney disease, unspecified; E87.6 Hypokalemia; E10.22 Type 1 diabetes mellitus with diabetic chronic kidney disease; F10.10 Alcohol abuse, uncomplicated; E86.1 Hypovolemia; E83.39 Other disorders of phosphorus metabolism; Z20.822 Contact with and (suspected) exposure to COVID-19; Z91.14 Patient's other noncompliance with medication regimen; Z88.0 Allergy status to penicillin; Z88.8 Allergy status to other drugs, medicaments and biological substances; Z79.899 Other long term (current) drug therapy
CPT/HCPCS: 36415; 71045; 80048; 80053; 80307; 81001; 82009; 82077; 82803; 82947; 83605; 83690; 83735; 84100; 85025; 87040; 87502; 87635; 97162; 99285; J1650; J2560; J3475

== ENCOUNTER 2022-06-11 21:38 | Inpatient (IN) | payer OTHER, SELFPAY ==
--- NOTE | 2022-06-11 | ECG_ITS ---
Test Reason : CP Blood Pressure : / mmHG Vent. Rate : 081 BPM Atrial Rate : 081 BPM P-R Int : 122 ms QRS Dur : 088 ms QT Int : 400 ms P-R-T Axes : 066 053 061 degrees QTc Int : 464 ms Normal sinus rhythm Intra-ventricular conduction delay Otherwise normal ECG When compared with ECG of 15-MAR-2022 06:23, T wave amplitude has increased in Inferior leads Heart rate has decreased Referred By: Generic ED Physician Electronically Signed By:DEON MCCORMICK MD
[2022-06-11 21:48] VITALS: BP 154/98; BP 156/105; PULSE 110; PULSE 114; RESP 22; O2SAT 100; BMI 22.1
[2022-06-11 22:00] VITALS: BP 156/105; PULSE 104; RESP 14; O2SAT 99
[2022-06-11 22:54] LABS: MANUAL DIFF FLAG NO
[2022-06-11 22:55] LABS: Imm Gran Abs Auto 0.03 X10*3/uL (0.00-0.03); Imm Gran Pct Auto 0.6 % (0.0-0.4); Mean Platelet Volume 9.9 fL (9.4-12.4); PLT CLUMP 1; SCAN SMEAR FLAG 1
[2022-06-11 22:57] LABS: Eosinophils Percent Auto 0.2 % (0-4); Hematocrit 38.4 % (42.0-52.0); Hemoglobin 13.4 g/dl (14.0-18.0); Lymphocytes Absolute Auto 0.5 X10*3/uL (1.2-4.9); Lymphocytes Percent Auto 11.3 % (20-40); Mean Corpuscular HGB Conc 34.9 g/dl (31.0-36.0); Mean Corpuscular Hemoglobin 30.7 pg (27.0-33.0); Mean Corpuscular Volume 88.1 fL (80.0-98.0); Monocytes Absolute Auto 0.4 X10*3/uL (0.1-1.2); Monocytes Percent Auto 8.8 % (2-11); Neutrophils Absolute Auto 3.8 x10*3/uL (2.0-8.3); Neutrophils Percent Auto 79.1 % (45-73); Red Blood Count 4.36 X10*6/uL (4.60-5.80); Red Cell Distribution Width 13.8 % (11.0-16.0)
[2022-06-11 23:02] LABS: Platelet Count 141 X10*3/uL (160-400); White Blood Count 4.8 X10*3/uL (4.8-10.8)
[2022-06-11 23:13] LABS: Troponin-I High Sensitivity 4.6 ng/L (<3.5-35.0)
[2022-06-11 23:21] LABS: Alanine Aminotransferase 201 U/L (0-40); Albumin Level 4.1 g/dL (3.5-5.0); Alkaline Phosphatase 260 U/L (39-117); Anion Gap 35 (12-20); Aspartate Amino Transferase 274 U/L (5-37); Bilirubin Direct 1.9 mg/dL (0.0-0.5); Bilirubin Total 3.2 mg/dL (0.0-1.0); Blood Urea Nitrogen 10 mg/dL (9-16); Calcium 8.7 mg/dL (8.4-10.2); Carbon Dioxide 20 mmol/L (22-29); Chloride 78 mmol/L (96-108); Creatinine Clr Calc Pharmacy 101.2; Estimated Glomerular Filt Rate > 60; Glucose Random 291 mg/dL (60-115); Lipase < 4 U/L (8-78); Potassium 4.3 mmol/L (3.3-5.1); Sodium 129 mmol/L (135-145); Total Protein 7.6 g/dL (6.5-8.0)
--- NOTE | 2022-06-11 23:25 | ED_ITS ---
HPI - General Adult General Chief complaint: Nausea/Vomiting/Diarrhea Stated complaint: N/V cx pain Time Seen by Provider: 06/11/22 23:03 Source: patient History of Present Illness HPI narrative: 41-year-old male with known history of alcohol use as well as diabetes comes in with nausea and vomiting as well as chest pain but denies hematemesis or melena. Related Data Home Medications Medication Instructions Recorded Confirmed clonidine HCl 0.2 mg tablet 0.2 mg PO BID 11/11/20 05/21/22 quetiapine 400 mg tablet (Seroquel) 400 mg PO BEDTIME 11/11/20 05/21/22 trazodone 100 mg tablet 200 mg PO BEDTIME 11/11/20 05/21/22 insulin glargine 100 unit/mL (3 50 unit subcut BEDTIME 01/28/22 05/21/22 mL) subcutaneous pen (Lantus Solostar U-100 Insulin) lamotrigine 200 mg tablet 1 tab PO BID 01/28/22 05/21/22 citalopram 40 mg tablet 40 mg PO DAILY 02/08/22 05/21/22 folic acid 1 mg tablet 1 mg PO DAILY 02/08/22 05/21/22 magnesium oxide 400 mg (241.3 mg 400 mg PO BID 02/08/22 05/21/22 magnesium) tablet thiamine HCl (vitamin B1) 100 mg 100 mg PO DAILY 02/08/22 05/21/22 tablet zolpidem 5 mg tablet 1 tab PO BEDTIME PRN Sleep 03/14/22 05/21/22 famotidine 20 mg tablet (Pepcid AC) 20 mg PO DAILY 05/21/22 05/21/22 quetiapine 400 mg tablet,extended 1 tab PO DAILY 05/21/22 05/21/22 release 24 hr Previous Rx's Medication Instructions Recorded lancets 33 gauge (TRUEplus Lancets) #200 ea 03/08/21 insulin aspart U-100 100 unit/mL 1 - 25 unit (0.01 - 0.25 mL) 10/31/21 (3 mL) subcutaneous pen (Novolog subcut QID #30 mL Flexpen U-100 Insulin aspart) pen needle, diabetic 32 gauge x #150 ea 02/07/22 (BD July 2nd Gen Pen Needle) blood sugar diagnostic (FreeStyle #150 ea 03/20/22 Lite Strips) Allergies Allergy/AdvReac Type Severity Reaction Status Date / Time clonazepam Allergy Unknown Unknown Verified 02/08/22 09:46 meropenem [MEROPENEM] Allergy Unknown SWELLING Verified 02/08/22 09:46 penicillin G procaine Allergy Unknown itching Verified 02/08/22 09:46 Penicillins [PENICILLINS] Allergy Unknown SWELLING Verified 02/08/22 09:46 lorazepam [From Ativan] Allergy Anaphylaxis Verified 02/08/22 09:46 Review of Systems Review of Systems: Pertinent positives and negatives as stated in HPI 10 point review of systems is otherwise negative. 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 Mother Diabetes Social History Social History Household Members: None Housing: Apartment Do you presently have visiting nurse or other home services: No Alcohol intake: current Alcohol intake frequency: 3 or more drinks per day Patient Tobacco Use Status: Never used Tobacco Smoked in Last 30 Days: No Use of substances other than those prescribed or required for medical reasons: No Advance Directives: No Advance Directives Information Provided: Yes service: Yes Current occupational status: employed Physical Exam ED Vital Signs: Vital Signs - 24 hr 06/11/22 21:48 06/11/22 22:00 06/11/22 23:41 Temperature 98.4 F Pulse Rate 114 H 104 H 99 Respiratory Rate 22 H 14 16 Blood Pressure 156/105 H 156/105 H 153/101 H Pulse Oximetry 100 99 100 Oxygen Delivery Method Room Air Room Air Room Air 06/12/22 01:39 Temperature 98.5 F Pulse Rate 106 H Respiratory Rate 18 Blood Pressure 142/100 H Pulse Oximetry 100 Oxygen Delivery Method Room Air BMI result Body Mass Index 22.1 VITAL SIGNS: Reviewed. GENERAL: Well developed, well nourished, in no acute distress. HEAD: Normocephalic/atraumatic EYES: PERRLA, EOMI EARS: Ext canals without abnormality OROPHARYNX: no oral lesions noted, posterior pharynx clear, dry mucosa NECK: Supple, no adenopathy LUNGS: Normal breath sounds. No adventitious sounds or accessory muscle use. S pO2<100> CARDIOVASCULAR: Regular rate and rhythm without noted murmurs, no JVD or lower extremity edema. ABDOMEN: Soft, mild abdominal pain without rebound, non-distended with bowel sounds. MUSCULOSKELETAL: No tenderness, deformities, or effusions noted on gross inspection. EXTREMITIES: No cyanosis, clubbing or edema. SKIN: Inspection of the skin reveals no rashes NEUROLOGIC: Alert and oriented x 4. Strength and sensation to light touch were grossly intact x 4, tremulous. Course Course Course Narrative: 41-year-old male with history and clinical presentation most consistent with likely DKA as well as alcohol withdrawal symptoms. Will IV fluid resuscitate and dispo accordingly. Review of all investigations consistent with acute alcohol withdrawal with alcoholic ketoacidosis, patient is mildly hyperglycemic with small ketone, bicarb-20 but the gap is consistent with alcohol ketoacidosis and less likely felt to be associated with a DKA. Patient placed on a phenobarb protocol, CIWA checks, will repeat CMP, borderline magnesium level, will give 1g Mg. I discussed the case with the inpatient hospitalist who accepts admission. Medical Decision Making Lab Data Result diagrams: 06/11/22 22:46 06/11/22 22:46 Labs: Lab Results 06/11/22 06/11/22 06/11/22 Range/Units 22:46 22:46 22:46 WBC 4.8 (4.8-10.8) X10*3/uL RBC 4.36 L D (4.60-5.80) X10*6/uL Hgb 13.4 L D (14.0-18.0) g/dl Hct 38.4 L D (42.0-52.0) % MCV 88.1 (80.0-98.0) fL MCH 30.7 (27.0-33.0) pg MCHC 34.9 (31.0-36.0) g/dl RDW 13.8 (11.0-16.0) % Plt Count 141 L D (160-400) X10*3/uL MPV 9.9 (9.4-12.4) fL Immature Gran % (Auto) 0.6 H (0.0-0.4) % Neut % (Auto) 79.1 H (45-73) % Lymph % (Auto) 11.3 L (20-40) % [place] % (Auto) 8.8 (2-11) % Eos % (Auto) 0.2 (0-4) % Baso % (Auto) 0.0 (0-2) % Lymph # (Auto) 0.5 L (1.2-4.9) X10*3/uL [place] # (Auto) 0.4 (0.1-1.2) X10*3/uL Eos # (Auto) 0.0 (0.0-0.4) X10*3/uL Baso # (Auto) 0.0 (0.0-0.2) X10*3/uL Abs Immat Gran (auto) 0.03 (0.00-0.03) X10*3/uL Absolute Neuts (auto) 3.8 (2.0-8.3) x10*3/uL Absolute Nucleated RBC 0.000 (0.0-0.012) X10*3/uL Nucleated RBC % (auto) 0.0 (0.0-0.2) /100WBC Sodium 129 L (135-145) mmol/L Potassium 4.3 (3.3-5.1) mmol/L Chloride 78 L (96-108) mmol/L Carbon Dioxide 20 L (22-29) mmol/L Anion Gap 35 H (12-20) BUN 10 (9-16) mg/dL Creatinine 0.86 (0.5-1.4) mg/dL Estim Creat Clear Calc 101.2 Estimated GFR > 60 POC Glucose (60-115) mg/dL Random Glucose 291 H (60-115) mg/dL Calcium 8.7 D (8.4-10.2) mg/dL Phosphorus 3.4 (2.7-4.5) mg/dL Magnesium 1.6 (1.6-2.6) mg/dL Total Bilirubin 3.2 H (0.0-1.0) mg/dL Direct Bilirubin 1.9 H (0.0-0.5) mg/dL AST 274 H (5-37) U/L ALT 201 H (0-40) U/L Alkaline Phosphatase 260 H (39-117) U/L Troponin I High Sens 4.6 (<3.5-35.0) ng/L Total Protein 7.6 (6.5-8.0) g/dL Albumin 4.1 (3.5-5.0) g/dL Lipase < 4 L (8-78) U/L Acetone, Qual Small H (Negative) Influenza Type A (PCR) (Negative) Influenza Type B (PCR) (Negative) RSV RNA Qual (PCR) (Negative) SARS-CoV-2 RNA (RT-PCR) (Negative) 06/11/22 06/11/22 Range/Units 23:34 23:40 WBC (4.8-10.8) X10*3/uL RBC (4.60-5.80) X10*6/uL Hgb (14.0-18.0) g/dl Hct (42.0-52.0) % MCV (80.0-98.0) fL MCH (27.0-33.0) pg MCHC (31.0-36.0) g/dl RDW (11.0-16.0) % Plt Count (160-400) X10*3/uL MPV (9.4-12.4) fL Immature Gran % (Auto) (0.0-0.4) % Neut % (Auto) (45-73) % Lymph % (Auto) (20-40) % [place] % (Auto) (2-11) % Eos % (Auto) (0-4) % Baso % (Auto) (0-2) % Lymph # (Auto) (1.2-4.9) X10*3/uL [place] # (Auto) (0.1-1.2) X10*3/uL Eos # (Auto) (0.0-0.4) X10*3/uL Baso # (Auto) (0.0-0.2) X10*3/uL Abs Immat Gran (auto) (0.00-0.03) X10*3/uL Absolute Neuts (auto) (2.0-8.3) x10*3/uL Absolute Nucleated RBC (0.0-0.012) X10*3/uL Nucleated RBC % (auto) (0.0-0.2) /100WBC Sodium (135-145) mmol/L Potassium (3.3-5.1) mmol/L Chloride (96-108) mmol/L Carbon Dioxide (22-29) mmol/L Anion Gap (12-20) BUN (9-16) mg/dL Creatinine (0.5-1.4) mg/dL Estim Creat Clear Calc Estimated GFR POC Glucose 286 H (60-115) mg/dL Random Glucose (60-115) mg/dL Calcium (8.4-10.2) mg/dL Phosphorus (2.7-4.5) mg/dL Magnesium (1.6-2.6) mg/dL Total Bilirubin (0.0-1.0) mg/dL Direct Bilirubin (0.0-0.5) mg/dL AST (5-37) U/L ALT (0-40) U/L Alkaline Phosphatase (39-117) U/L Troponin I High Sens (<3.5-35.0) ng/L Total Protein (6.5-8.0) g/dL Albumin (3.5-5.0) g/dL Lipase (8-78) U/L Acetone, Qual (Negative) Influenza Type A (PCR) NEGATIVE (Negative) Influenza Type B (PCR) NEGATIVE (Negative) RSV RNA Qual (PCR) NEGATIVE (Negative) SARS-CoV-2 RNA (RT-PCR) NEGATIVE (Negative) Critical Care Time Critical Care Time Critical Care Time: Yes Total Critical Care Time: 30 Attestation: I personally attest to this time spent taking care of the patient. Discharge Plan Discharge Clinical Impression: Alcohol withdrawal, Dehydration, Alcoholic ketoacidosis, Hyperglycemia, Alcohol use disorder Patient Disposition: Admitted As Inpatient Prescriptions: No Action (DME) lancets [TRUEplus Lancets] 33 gauge misc See Rx Instructions .Route Qty: 200 11RF Rx Instructions: Four times a day insulin aspart U-100 [Novolog Flexpen U-100 Insulin] 100 unit/mL (3 mL) insulin pen 1 - 25 unit subcut QID Qty: 30 3RF (DME) pen needle, diabetic [BD July 2nd Gen Pen Needle] 32 gauge x 5/32 needle See Rx Instructions .MEDSUPPLY Qty: 150 4RF Rx Instructions: 5 times a day (DME) FreeStyle Lite Strips Strip See Rx Instructions .Route Qty: 150 11RF Rx Instructions: Four times a day famotidine [Pepcid AC] 20 mg Tablet 20 mg PO DAILY quetiapine 400 mg tablet extended release 24 hr 1 tab PO DAILY lamotrigine 200 mg tablet 1 tab PO BID insulin glargine [Lantus Solostar U-100 Insulin] 100 unit/mL (3 mL) insulin pen 50 unit subcut BEDTIME zolpidem 5 mg tablet 1 tab PO BEDTIME PRN (Reason: Sleep) quetiapine [Seroquel] 400 mg tablet 400 mg PO BEDTIME trazodone 100 mg tablet 200 mg PO BEDTIME clonidine HCl 0.2 mg tablet 0.2 mg PO BID citalopram 40 mg tablet 40 mg PO DAILY thiamine HCl (vitamin B1) 100 mg tablet 100 mg PO DAILY folic acid 1 mg tablet 1 mg PO DAILY magnesium oxide 400 mg (241.3 mg magnesium) tablet 400 mg PO BID
[2022-06-11] MEDS: 0.9 % Sodium Chloride 2,000 ML 999 ML IV (23:36)
[2022-06-11 23:38] LABS: Glucose, Whole Blood 286 mg/dL (60-115)
[2022-06-11 23:39] LABS: Acetone, serum QL Small (Negative)
[2022-06-11 23:41] VITALS: BP 153/101; PULSE 99; RESP 16; TEMP 36.9; O2SAT 100
[2022-06-12] VITALS (9 sets, daily range): BP systolic 113–142; BP diastolic 62–100; PULSE 58–115; RESP 14–24; TEMP 35.7–37.1; O2SAT 97–100
[2022-06-12 00:08] LABS: Magnesium 1.6 mg/dL (1.6-2.6); Phosphorus 3.4 mg/dL (2.7-4.5)
[2022-06-12] MEDS: PHENobarbitaL sodium 130 MG/ML IM ONCE 310 MG IM (00:13)
[2022-06-12] MEDS: ondansetron HCL 4 MG/2 ML VIAL IVPUSH ×4 (00:13→08:29)
[2022-06-12 00:27] LABS: Influenza A PCR NEGATIVE (Negative); Influenza B PCR NEGATIVE (Negative); Resp Syncy Virus RNA Qual PCR NEGATIVE (Negative); SARS COV2 PCR INHOUSE NEGATIVE (Negative)
[2022-06-12 02:09] LABS: Glucose, Whole Blood 267 mg/dL (60-115)
[2022-06-12] MEDS: Magnesium Sulfate/D5W 1 GM/100 ML PIGGYBACK IV (02:20)
[2022-06-12] MEDS: Insulin Lispro 100 UNIT/ML 3 ML VIAL 10 UNIT SUBCUT (02:20)
[2022-06-12 02:24] LABS: Appearance Urine Clear; Color Urine Yellow; Glucose Urine UA >=1000 mg/dL (Negative); Leukocyte Esterase Urine Negative (Negative); Nitrite Urine Negative (Negative); PH 5.5 (5.0-9.0); Specific Gravity - Urine >= 1.030 (1.005-1.025); UMIC TRIGGER UACC YES; Urine Blood Trace (Negative); Urine Ketones >=160 mg/dL (Negative); Urine Protein 30 (1+) mg/dL (Neg-Trace)
[2022-06-12 02:29] LABS: Bacteria Urine None Seen (None Seen); Hyaline Casts Urine 0-2 /LPF (0-2); RBC Urine 0-2 /HPF (0-2); Squamous Epithelial Cell Urine 0-2 /HPF (0-2); WBC Urine 0-5 /HPF (0-5)
[2022-06-12 02:50] LABS: Venous Blood Gas Refer to POC result
[2022-06-12 02:50] LABS: VBG Base Excess -5.6 mmol/L; VBG HCO3 17 mmol/L (22-26); VBG pCO2 27 mmHg; VBG pO2 46 mmHg
[2022-06-12 03:32] LABS: Ethanol < 10 mg/dL
[2022-06-12 03:36] LABS: Amphetamine Screen Urine Not Detected (Not Detect); Barbiturates, Urine POSITIVE (Not Detect); Benzodiazepines Screen Urine Not Detected (Not Detect); Cannabinoid Screen Urine Not Detected (Not Detect); Cocaine Screen Urine Not Detected (Not Detect); Fentanyl, urine Not Detected (Not Detect); Opiate Screen Urine Not Detected (Not Detect); Phencyclidine Screen Urine Not Detected (Not Detect)
--- NOTE | 2022-06-12 03:37 | PM.IMHP ---
History of Present Illness Date of Service: 06/12/22 Chief Complaint: Alcohol withdrawal This is a 41-year-old male with past medical history of alcohol abuse, diabetes type 1, diabetic neuropathy, presents to the hospital with complaints of alcohol withdrawal, dehydration. Patient reports that he stop drinking on Sunday because he wants to abstain from alcohol. Patient reports that ever since he has had nausea, vomiting, diffuse abdominal pain, he has had low oral intake. He reports that because he has not been eating he is also not been taking his insulin. He denies any fever but has chills, chest pain, no palpitations, no shortness of breath, had 1 episode of diarrhea, no constipation, no urinary symptoms and no lower extremity edema. 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 Mother Diabetes Surgical History No pertinent past surgical history Social History Household Members: None Housing: Apartment Do you presently have visiting nurse or other home services: No Alcohol intake: current Alcohol intake frequency: 3 or more drinks per day Patient Tobacco Use Status: Never used Tobacco Smoked in Last 30 Days: No Use of substances other than those prescribed or required for medical reasons: No Advance Directives: No Advance Directives Information Provided: Yes service: Yes Current occupational status: employed Meds Allergies Allergy/AdvReac Type Severity Reaction Status Date / Time clonazepam Allergy Unknown Unknown Verified 02/08/22 09:46 meropenem [MEROPENEM] Allergy Unknown SWELLING Verified 02/08/22 09:46 penicillin G procaine Allergy Unknown itching Verified 02/08/22 09:46 Penicillins [PENICILLINS] Allergy Unknown SWELLING Verified 02/08/22 09:46 lorazepam [From Ativan] Allergy Anaphylaxis Verified 02/08/22 09:46 Active Medications: Current Medications Pharmacy Consult (Consult Rx Etoh Phenob Im/Po) 1 each MISCELLANE ONCE PRN; Protocol PRN Reason: Consult order Pharmacy Consult (Consult Rx Perform Med Rec) 1 each MISCELLANE ONCE PRN PRN Reason: Consult order Phenobarbital Sodium (Phenobarbital Sodium 130 Mg/Ml Vial Im Q3hx2) 270 mg IM Q3H MAINOR Stop: 06/12/22 06:31 Home Medications Medication Instructions Recorded Confirmed Last Taken Type clonidine HCl 0.2 mg tablet 0.2 mg PO BID 11/11/20 05/21/22 Unknown History quetiapine 400 mg tablet (Seroquel) 400 mg PO BEDTIME 11/11/20 05/21/22 Unknown History trazodone 100 mg tablet 200 mg PO BEDTIME 11/11/20 05/21/22 Unknown History insulin glargine 100 unit/mL (3 50 unit subcut BEDTIME 01/28/22 05/21/22 Unknown History mL) subcutaneous pen (Lantus Solostar U-100 Insulin) lamotrigine 200 mg tablet 1 tab PO BID 01/28/22 05/21/22 Unknown History citalopram 40 mg tablet 40 mg PO DAILY 02/08/22 05/21/22 Unknown History folic acid 1 mg tablet 1 mg PO DAILY 02/08/22 05/21/22 Unknown History magnesium oxide 400 mg (241.3 mg 400 mg PO BID 02/08/22 05/21/22 Unknown History magnesium) tablet thiamine HCl (vitamin B1) 100 mg 100 mg PO DAILY 02/08/22 05/21/22 Unknown History tablet zolpidem 5 mg tablet 1 tab PO BEDTIME PRN Sleep 03/14/22 05/21/22 Unknown History famotidine 20 mg tablet (Pepcid AC) 20 mg PO DAILY 05/21/22 05/21/22 Unknown History quetiapine 400 mg tablet,extended 1 tab PO DAILY 05/21/22 05/21/22 Unknown History release 24 hr Physical Exam Vital Signs and Narrative: Vital Signs: Last Vital Signs Temp 98.6 F 06/12/22 02:21 Pulse 102 H 06/12/22 02:21 Resp 18 06/12/22 02:21 BP 125/88 06/12/22 02:21 Pulse Ox 100 06/12/22 02:21 O2 Del Method 06/12/22 02:21 BMI result Body Mass Index 22.1 Const: General: cooperative and no acute distress Orientation/consciousness: patient oriented x3 Eyes: General: appearance normal, both eyes and all related structures Resp: Effort & Inspection: normal respiratory effort Auscultation: clear to auscultation bilaterally Cardio: Rate: regular rate Rhythm: regular rhythm GI: Palpation (GI): Soft to palpation Auscultation: normal bowel sounds Skin: General skin exam: no rashes or lesions noted Neuro: General: patient oriented x3 Cognition (Neuro): normal cognition Extrem: General: Yes normal to inspection and Yes no pedal edema Results Labs CBC and Chem 7: 06/12/22 05:00 06/12/22 02:15 Labs: Laboratory Results - last 24 hr 06/11/22 06/11/22 06/11/22 22:46 22:46 22:46 MCV 88.1 MCH 30.7 MCHC 34.9 RDW 13.8 Plt Count 141 L D MPV 9.9 Immature Gran % (Auto) 0.6 H Neut % (Auto) 79.1 H Lymph % (Auto) 11.3 L [place] % (Auto) 8.8 Eos % (Auto) 0.2 Baso % (Auto) 0.0 Lymph # (Auto) 0.5 L [place] # (Auto) 0.4 Eos # (Auto) 0.0 Baso # (Auto) 0.0 Abs Immat Gran (auto) 0.03 Absolute Neuts (auto) 3.8 Absolute Nucleated RBC 0.000 Nucleated RBC % (auto) 0.0 VBG pH VBG pCO2 VBG pO2 VBG HCO3 VBG O2 Saturation VBG Base Excess Anion Gap 35 H Estim Creat Clear Calc 101.2 Estimated GFR > 60 POC Glucose Random Glucose 291 H Calcium 8.7 D Phosphorus 3.4 Magnesium 1.6 Total Bilirubin 3.2 H Direct Bilirubin 1.9 H AST 274 H ALT 201 H Alkaline Phosphatase 260 H Troponin I High Sens 4.6 Total Protein 7.6 Albumin 4.1 Lipase < 4 L Urine Color Urine Appearance Urine pH Ur Specific [place] Urine Protein Urine Glucose (UA) Urine Ketones Urine Blood Urine Nitrite Ur Leukocyte Esterase Urine RBC Urine WBC Ur Squamous Epith Cells Urine Bacteria Hyaline Casts Urine Opiates Screen Urine Fentanyl Screen Ur Barbiturates Screen Ur Phencyclidine Scrn Ur Amphetamines Screen U Benzodiazepines Scrn Urine Cocaine Screen U Marijuana (THC) Screen Ethyl Alcohol < 10 Acetone, Qual Small H Influenza Type A (PCR) Influenza Type B (PCR) RSV RNA Qual (PCR) SARS-CoV-2 RNA (RT-PCR) 06/11/22 06/11/22 06/12/22 23:34 23:40 02:06 MCV MCH MCHC RDW Plt Count MPV Immature Gran % (Auto) Neut % (Auto) Lymph % (Auto) [place] % (Auto) Eos % (Auto) Baso % (Auto) Lymph # (Auto) [place] # (Auto) Eos # (Auto) Baso # (Auto) Abs Immat Gran (auto) Absolute Neuts (auto) Absolute Nucleated RBC Nucleated RBC % (auto) VBG pH VBG pCO2 VBG pO2 VBG HCO3 VBG O2 Saturation VBG Base Excess Anion Gap Estim Creat Clear Calc Estimated GFR POC Glucose 286 H 267 H Random Glucose Calcium Phosphorus Magnesium Total Bilirubin Direct Bilirubin AST ALT Alkaline Phosphatase Troponin I High Sens Total Protein Albumin Lipase Urine Color Urine Appearance Urine pH Ur Specific [place] Urine Protein Urine Glucose (UA) Urine Ketones Urine Blood Urine Nitrite Ur Leukocyte Esterase Urine RBC Urine WBC Ur Squamous Epith Cells Urine Bacteria Hyaline Casts Urine Opiates Screen Urine Fentanyl Screen Ur Barbiturates Screen Ur Phencyclidine Scrn Ur Amphetamines Screen U Benzodiazepines Scrn Urine Cocaine Screen U Marijuana (THC) Screen Ethyl Alcohol Acetone, Qual Influenza Type A (PCR) NEGATIVE Influenza Type B (PCR) NEGATIVE RSV RNA Qual (PCR) NEGATIVE SARS-CoV-2 RNA (RT-PCR) NEGATIVE 06/12/22 06/12/22 06/12/22 02:15 02:15 02:39 MCV MCH MCHC RDW Plt Count MPV Immature Gran % (Auto) Neut % (Auto) Lymph % (Auto) [place] % (Auto) Eos % (Auto) Baso % (Auto) Lymph # (Auto) [place] # (Auto) Eos # (Auto) Baso # (Auto) Abs Immat Gran (auto) Absolute Neuts (auto) Absolute Nucleated RBC Nucleated RBC % (auto) VBG pH 7.40 VBG pCO2 27 VBG pO2 46 VBG HCO3 17 L VBG O2 Saturation 70.0 VBG Base Excess -5.6 Anion Gap Estim Creat Clear Calc Estimated GFR POC Glucose Random Glucose Calcium Phosphorus Magnesium Total Bilirubin Direct Bilirubin AST ALT Alkaline Phosphatase Troponin I High Sens Total Protein Albumin Lipase Urine Color Yellow Urine Appearance Clear Urine pH 5.5 Ur Specific [place] >= 1.030 H Urine Protein 30 (1+) H Urine Glucose (UA) >=1000 H Urine Ketones >=160 Urine Blood Trace H Urine Nitrite Negative Ur Leukocyte Esterase Negative Urine RBC 0-2 Urine WBC 0-5 Ur Squamous Epith Cells 0-2 Urine Bacteria None Seen Hyaline Casts 0-2 Urine Opiates Screen Not Detected Urine Fentanyl Screen Not Detected Ur Barbiturates Screen POSITIVE H Ur Phencyclidine Scrn Not Detected Ur Amphetamines Screen Not Detected U Benzodiazepines Scrn Not Detected Urine Cocaine Screen Not Detected U Marijuana (THC) Screen Not Detected Ethyl Alcohol Acetone, Qual Influenza Type A (PCR) Influenza Type B (PCR) RSV RNA Qual (PCR) SARS-CoV-2 RNA (RT-PCR) Assessment and Plan (1) Alcohol withdrawal: Status: Acute (2) Dehydration: Status: Acute (3) Alcoholic ketoacidosis: Status: Acute (4) Starvation ketoacidosis: Status: Acute (5) Hyponatremia: Status: Acute Plan 41-year-old male with past medical history of alcohol abuse presents to the hospital after he stop drinking on Sunday # alcohol abuse with alcohol withdrawal - start on phenobarb protocol - folic acid, thiamine supplement - monitor withdrawal symptoms - add p.r.n. phenobarb if necessary # alcoholic ketoacidosis/starvation ketoacidosis - has positive ketones, positive anion gap, lactic acid normal - not significantly hyperglycemic, underlying DKA less likely as pH is normal - patient glucose normalized with fluids - at this time will treat with IV fluids - monitor anion gap - follow BMP # hyponatremia - likely secondary to decreased solute intake - will place on NS - follow BMP # diabetes - I do not believe the patient is in DKA as he has no acidosis, with normal pH, and low hemoglobin - will start on correction insulin, continue home insulin - glucose check q.i.d. a.c. HS DVT prophylaxis: Sallynox Given the significant alcohol withdrawal, electrolyte abnormalities patient will require minimum 2 night inpatient hospital stay for further management and monitoring Quality Stroke Does the patient have a stroke diagnosis?: No VTE Prior VTE?: No VTE Risk Level:: Medical - moderate - high VTE Device Contraindication: Treatment Not Indicated VTE Drug Contraindication: N/A - Med Ordered
[2022-06-12 03:39] LABS: Alanine Aminotransferase 185 U/L (0-40); Albumin Level 3.8 g/dL (3.5-5.0); Alkaline Phosphatase 249 U/L (39-117); Anion Gap 34 (12-20); Aspartate Amino Transferase 309 U/L (5-37); Bilirubin Total 2.8 mg/dL (0.0-1.0); Blood Urea Nitrogen 9 mg/dL (9-16); Calcium 8.1 mg/dL (8.4-10.2); Carbon Dioxide 12 mmol/L (22-29); Chloride 87 mmol/L (96-108); Creatinine Clr Calc Pharmacy 106.2; Estimated Glomerular Filt Rate > 60; Glucose Random 246 mg/dL (60-115); Potassium 4.2 mmol/L (3.3-5.1); Sodium 129 mmol/L (135-145); Total Protein 6.8 g/dL (6.5-8.0)
[2022-06-12] MEDS: Enoxaparin Sodium 40 MG/0.4 ML SYRINGE SUBCUT (04:13)
[2022-06-12] MEDS: PHENobarbitaL sodium 130 MG/ML VIAL IM (04:14)
[2022-06-12 04:18] LABS: Glucose, Whole Blood 117 mg/dL (60-115)
--- NOTE | 2022-06-12 04:21 | PC.NURSE ---
Took over pt at 3:00am from Nicole. pt a&o, no chest pain or sob. Medicated per Mar. Will continue to monitor. no sign of distress.
[2022-06-12 05:07] LABS: MANUAL DIFF FLAG NO
[2022-06-12 05:08] LABS: Basophils Percent Auto 0.2 % (0-2); Eosinophils Percent Auto 0.2 % (0-4); Imm Gran Abs Auto 0.02 X10*3/uL (0.00-0.03); Imm Gran Pct Auto 0.4 % (0.0-0.4); Mean Corpuscular Volume 89.3 fL (80.0-98.0); PLT CLUMP 1; Red Cell Distribution Width 14.2 % (11.0-16.0); SCAN SMEAR FLAG 1
[2022-06-12 05:09] LABS: Hematocrit 36.8 % (42.0-52.0); Hemoglobin 12.9 g/dl (14.0-18.0); Lymphocytes Percent Auto 17.1 % (20-40); Mean Corpuscular HGB Conc 35.1 g/dl (31.0-36.0); Mean Corpuscular Hemoglobin 31.3 pg (27.0-33.0); Mean Platelet Volume 9.7 fL (9.4-12.4); Monocytes Absolute Auto 0.5 X10*3/uL (0.1-1.2); Monocytes Percent Auto 9.2 % (2-11); Neutrophils Absolute Auto 4.1 x10*3/uL (2.0-8.3); Neutrophils Percent Auto 72.9 % (45-73); Red Blood Count 4.12 X10*6/uL (4.60-5.80)
[2022-06-12] MEDS: PHENobarbitaL sodium 130 MG/ML VIAL IM Q3Hx2 230 MG IM ×2 (05:11→08:13)
[2022-06-12 05:14] LABS: Platelet Count 121 X10*3/uL (160-400); White Blood Count 5.6 X10*3/uL (4.8-10.8)
[2022-06-12] MEDS: Lactated Ringers 1,000 ML 100 ML IVCONT ×2 (05:14→17:43)
[2022-06-12 05:29] LABS: Anion Gap 30 (12-20); Blood Urea Nitrogen 9 mg/dL (9-16); Calcium 7.8 mg/dL (8.4-10.2); Carbon Dioxide 16 mmol/L (22-29); Chloride 87 mmol/L (96-108); Creatinine Clr Calc Pharmacy 111.6; Estimated Glomerular Filt Rate > 60; Glucose Random 118 mg/dL (60-115); Potassium 4.2 mmol/L (3.3-5.1); Sodium 129 mmol/L (135-145)
[2022-06-12] MEDS: 0.9 % Sodium Chloride 1,000 ML 100 ML IVCONT ×2 (05:34→15:13)
--- NOTE | 2022-06-12 07:10 | PC.NURSE ---
Per Dr Smith hold insulin IV push, change LR to Na fluids. No other orders at this time.
--- NOTE | 2022-06-12 07:13 | PC.NURSE ---
Confirmed With Dr. Marcos regarding new order for anion gap. Continue to monitor.
[2022-06-12 07:33] LABS: Glucose, Whole Blood 106 mg/dL (60-115)
[2022-06-12] MEDS: Folic Acid 1 MG TABLET PO (08:13)
[2022-06-12] MEDS: Thiamine HCL 100 MG TABLET PO (08:13)
--- NOTE | 2022-06-12 08:39 | PHA.MEDREC ---
Pharmacy Consult ? Medication Reconciliation Pharmacy has completed the medication reconciliation. Patient knew and confirmed all medications. Reports he need to have his Lantus in the morning or his sugar stop too low if its given at night. Chiqui Vizcaino, ShannonD
[2022-06-12 08:58] LABS: Anion Gap 26 (12-20); Blood Urea Nitrogen 8 mg/dL (9-16); Calcium 7.9 mg/dL (8.4-10.2); Carbon Dioxide 19 mmol/L (22-29); Chloride 91 mmol/L (96-108); Creatinine Clr Calc Pharmacy 106.2; Estimated Glomerular Filt Rate > 60; Glucose Random 126 mg/dL (60-115); Potassium 3.8 mmol/L (3.3-5.1); Sodium 132 mmol/L (135-145)
[2022-06-12 13:00] LABS: Glucose, Whole Blood 163 mg/dL (60-115)
[2022-06-12] MEDS: Acetaminophen 325 MG TABLET 650 MG PO (13:00)
--- NOTE | 2022-06-12 13:02 | MHC.CM.PN ---
PT REPORTS HE LIVES ALONE WITH HIS DOG AND IS INDEPENDENT WITH CARE HE DENIES USE OF HOME OR COMMUNITY SERVICES HE REPORTS HE HAS ALL NECESSARY DM SUPPLIES, AND USES NO OTHER DME HCP ON FILE PCP: [facility] DELIVERED, COPY SENT TO [facility] CURRENT DC PLAN IS HOME WITH NO SERVICES FAMILY TO TRANSPORT
[2022-06-12] MEDS: Insulin Lispro 100 UNIT/ML 3 ML VIAL SUBCUT ×2 (15:14→20:44)
--- NOTE | 2022-06-12 15:23 | PM.EVENT ---
Event Note Date of Service: 06/12/22 Event Note: Chief Complaint: Alcohol withdrawal 41-year-old male with past medical history of alcohol abuse, diabetes type 1, diabetic neuropathy, presents to the hospital with alcohol withdrawal including nausea vomiting abdominal pain, decreased by mouth intake, he stopped drinking 3 days ago because he wants to abstain from alcohol. ? on arrival to the ED patient hemodynamically stable with a heart rate of 114, respiratory rate of 22, blood pressure of 156/105 Labs are significant for WBC count of 4.8, hemoglobin of 13.4, hematocrit of 38.4, platelet count of 141, sodium of 129, potassium of 4.3, chloride of 78, positive anion gap, glucose of 286, total bili of 3.2, direct bili of 1.9, AST of 274, ALT of 2 1, glucose of 260, UA negative for any acute infection, pH of 7.4 At present patient continued to have nausea and mild abdominal discomfort, denies tremors On examination stable vitals Lungs clear to auscultation Abdomen soft, positive bowel sounds A/P 41-year-old male with past medical history of alcohol abuse presents to the hospital due to nausea vomiting abdominal pain # alcohol abuse with alcohol withdrawal - continue phenobarb protocol, folic acid, thiamine supplement, continue famotidine - care team consult # alcoholic ketoacidosis/starvation ketoacidosis - has positive ketones, positive anion gap, not significantly hyperglycemic, DKA less likely - follow BMP continue IV fluids, regular diet. - anion gap metabolic acidosis Likely due to alcohol abuse, continue IV fluid abstain from alcohol - follow BMP # hyponatremia - likely secondary to decreased solute intake - sodium improved from 129-132 , follow BMP # diabetes type 1 - no DKA, - on correction insulin, continue Lantus insulin at home takes 50 units currently blood sugars in 120s will adjust dose of Lantus - glucose check q.i.d. a.c. HS # bipolar disorder continue home medications DVT prophylaxis: Lovenox
[2022-06-12 19:17] LABS: Glucose, Whole Blood 257 mg/dL (60-115)
[2022-06-12 20:06] LABS: Glucose, Whole Blood 325 mg/dL (60-115)
[2022-06-12] MEDS: Insulin Glargine,Hum.rec.anlog 100 UNIT/ML 10 ML VIAL 25 UNIT SUBCUT (20:44)
--- NOTE | 2022-06-12 21:29 | MHC.RECOVSUP ---
? Reason for consult:ETOH o? Current location:ED01? o? Identified substance use concern:? -? Support ? Intervention: o? Community resources provided o? Harm reduction discussion ? Plan: o? Follow up tomorrow? ? Additional information:RC met with Pt and spoke harm reduction strategies and informed pt aboout recovery resources.
[2022-06-12] MEDS: PHENobarbitaL 15 MG TABLET 45 MG PO (22:27)
[2022-06-12] MEDS: cloNIDine HCL 0.2 MG TABLET PO (22:27)
[2022-06-12] MEDS: traZODone HCL 100 MG TABLET 200 MG PO (22:27)
[2022-06-12] MEDS: lamoTRIgine 100 MG TABLET 200 MG PO (22:27)
[2022-06-12] MEDS: Magnesium Oxide 400 MG TABLET PO (22:28)
[2022-06-12] MEDS: QUEtiapine Fumarate 200 MG TABLET PO (22:28)
[2022-06-12] MEDS: QUEtiapine Fumarate 400 MG TABLET PO (22:28)
--- NOTE | 2022-06-12 23:30 | PC.NURSE ---
1999; Educated patient on high fall risk protocol, bed alarm, safety. Patient alert and oriented, refusing bed alarm, high fall risk. Patient reporting he was able to walk around freely without alarms while in the ed.
[2022-06-13] VITALS (8 sets, daily range): BP systolic 95–123; BP diastolic 57–87; PULSE 65–128; RESP 14–18; TEMP 36–36.8; O2SAT 96–100
[2022-06-13] MEDS: Lactated Ringers 1,000 ML 100 ML IVCONT (03:40)
--- NOTE | 2022-06-13 03:47 | PC.NURSE ---
hospitalist on duty alerted that pt declined his scheduled lovenox, pt noted ambulating and independent with position changes. responded ok at [id number].
[2022-06-13 06:39] LABS: Hematocrit 28.6 % (42.0-52.0); Mean Corpuscular Hemoglobin 31.3 pg (27.0-33.0); Mean Corpuscular Volume 89.4 fL (80.0-98.0); Mean Platelet Volume 10.2 fL (9.4-12.4); Red Cell Distribution Width 13.9 % (11.0-16.0); White Blood Count 3.7 X10*3/uL (4.8-10.8)
[2022-06-13 06:42] LABS: Platelet Count 79 X10*3/uL (160-400)
[2022-06-13 06:55] LABS: Anion Gap 16 (12-20); Blood Urea Nitrogen 9 mg/dL (9-16); Carbon Dioxide 22 mmol/L (22-29); Chloride 96 mmol/L (96-108); Creatinine Clr Calc Pharmacy 116.1; Estimated Glomerular Filt Rate > 60; Potassium 3.1 mmol/L (3.3-5.1); Sodium 131 mmol/L (135-145)
[2022-06-13 06:56] LABS: Calcium 7.5 mg/dL (8.4-10.2)
[2022-06-13 06:58] LABS: Glucose Random 33 mg/dL (60-115)
--- NOTE | 2022-06-13 07:04 | PC.NURSE ---
RECEIVED A CALL FROM LAB AT 0700 TO REPORT RANDOM GLUCOSE OF 33, PT AWAKE, WATCHING TV, DENIES SYMPTOMS. REPORTED RESULTS TO ONCOMING RN REPORT ALREADY GIVEN, [facility]ISSION ANALYST DID FINGERSTICK WITH A RESULT OF 26. PT ABLE TO SWALLOW SAFELY AND FOOD AND BEVERAGE GIVEN, DAY RN WILL CONTINUE CARE.
[2022-06-13 07:17] LABS: Glucose, Whole Blood 26 mg/dL (60-115)
[2022-06-13 07:24] LABS: Glucose, Whole Blood 70 mg/dL (60-115)
[2022-06-13] MEDS: Thiamine HCL 100 MG TABLET PO (08:39)
[2022-06-13] MEDS: PHENobarbitaL 15 MG TABLET 45 MG PO ×2 (08:39→20:43)
[2022-06-13] MEDS: Escitalopram Oxalate 20 MG TABLET PO (08:39)
[2022-06-13] MEDS: Magnesium Oxide 400 MG TABLET PO ×2 (08:39→20:43)
[2022-06-13] MEDS: cloNIDine HCL 0.2 MG TABLET PO ×2 (08:39→20:43)
[2022-06-13] MEDS: Folic Acid 1 MG TABLET PO (08:39)
[2022-06-13] MEDS: QUEtiapine Fumarate 200 MG TABLET PO ×2 (08:39→20:43)
[2022-06-13] MEDS: lamoTRIgine 100 MG TABLET 200 MG PO ×2 (08:39→20:43)
[2022-06-13] MEDS: Famotidine 20 MG TABLET PO ×2 (08:39→17:18)
[2022-06-13] MEDS: Potassium Chloride ER 20 MEQ TAB.ER.PRT 40 MEQ PO (08:40)
[2022-06-13 11:02] LABS: Glucose, Whole Blood 117 mg/dL (60-115)
--- NOTE | 2022-06-13 14:22 | MHC.RECOVRN ---
Met with pt in 374 after consult placed to CARE Team for alcohol use. Upon entering, pt sitting in bed, awake, alert, easily engages in conversation. Pt reports drinking rum, 1.5 pints daily x approx 2 months. Prior to 2 months ago, pt had been in recovery x 2 years. Pt found outpatient tx to be helpful, including therapy/psychiatry and specific tx (MRT). Pt had also been receiving Vivitrol x 2 years at [facility]. Pt plans to return to outpatient tx, including restarting naltrexone. Pt states he has other supports in place, mother and dog ([place]). Pt prioritizing recovery and is future oriented. Denies questions or concerns at this time. T/w available if needed.
--- NOTE | 2022-06-13 15:39 | P.PNIM_ITS ---
Subjective Subjective Date of Service: 06/13/22 Interval History: Feeling better this morning less nauseous no abdominal pain noted to have low blood sugars of 26 this morning, although patient admits that he ate his dinner, blood sugar improved with orange juice to 70 patient remained asymptomatic, denies headache, lightheadedness, dizziness, no tremors Review of Systems General no headache no dizziness no fever chills. CVS no chest pain, no palpitation. Respiratory no cough, no sob. Gastrointestinal no nausea, no vomiting, no abdominal pain Review of Systems: Yes all other systems are reviewed and are negative Physical Exam Vital Signs: Vital Signs: Last Vital Signs Temp 97 F 06/13/22 10:47 Pulse 83 06/13/22 10:47 Resp 16 06/13/22 10:47 BP 105/65 06/13/22 10:47 Pulse Ox 99 06/13/22 10:47 O2 Del Method 06/13/22 10:47 O2 Flow Rate 3 06/12/22 14:00 BMI result Body Mass Index 22.1 Const: Other: General awake alert x3, in no acute distress. Neck is supple no JVD. CVS regular rate rhythm, Respiratory lungs clear to auscultation, no respiratory distress, no wheeze, no rhonchi. Gastrointestinal abdomen soft, nontender, bowel sounds audible, no guarding , no rigidity. Extremities no edema. Neuro nonfocal patient moving all 4 extremity speech clear. Skin no rash Psych appropriate affect Objective Data Active Medications Acetaminophen (Acetaminophen 325 Mg Tablet) 650 mg PO Q6H PRN PRN Reason: Pain, Mild (Pain Scale 1-3) Last Admin: 06/12/22 13:00 Dose: 650 mg Documented By: MIRYAM Clonidine HCl (Clonidine Hcl 0.2 Mg Tablet) 0.2 mg PO BID [facility]; Protocol Last Admin: 06/13/22 08:39 Dose: 0.2 mg Documented By: NIKIA Dextrose (Dextrose 50 % 25 Gm/50 Ml Syringe) 25 gm IVPUSH Q15M PRN; Protocol PRN Reason: per Hypoglycemia Standing Ord. Docusate Sodium (Docusate Sodium 100 Mg Capsule) 100 mg PO DAILY PRN PRN Reason: Constipation Enoxaparin Sodium (Enoxaparin Sodium 40 Mg/0.4 Ml Syringe) 40 mg SUBCUT Q24H [facility] Last Admin: 06/13/22 03:42 Dose: Not Given Documented By: HOLLY Non-Admin Reason: Patient Refused Escitalopram Oxalate (Escitalopram Oxalate 20 Mg Tablet) 20 mg PO DAILY [facility] Last Admin: 06/13/22 08:39 Dose: 20 mg Documented By: NIKIA Famotidine (Famotidine 20 Mg Tablet) 20 mg PO DAILY [facility] Last Admin: 06/13/22 08:39 Dose: 20 mg Documented By: NIKIA Folic Acid (Folic Acid 1 Mg Tablet) 1 mg PO DAILY [facility] Last Admin: 06/13/22 08:39 Dose: 1 mg Documented By: NIKIA Folic Acid (Folic Acid 1 Mg Tablet) 1 mg PO DAILY [facility] Last Admin: 06/13/22 10:10 Dose: Not Given Documented By: NIKIA Non-Admin Reason: Duplicate Order Glucose (Glucose Gel 15 Gm Gel..Gram.) 15 gm PO Q15M PRN; Protocol PRN Reason: per Hypoglycemia Standing Ord. Lactated Ringer's (Lr) 1,000 mls @ 100 mls/hr IVCONT .Q10H [facility] Last Admin: 06/13/22 03:40 Dose: 100 mls/hr Documented By: HOLLY Insulin Glargine (Insulin Glargine,Hum.Rec.Anlog 100 Unit/Ml 10 Ml Vial) 25 unit SUBCUT BEDTIME [facility] Last Admin: 06/12/22 20:44 Dose: 25 unit Documented By: MILENA Insulin Human Lispro (Insulin Lispro 100 Unit/Ml 3 Ml Vial) 0.1 - 10 unit SUBCUT QIDACHS [facility]; Protocol Last Admin: 06/13/22 11:29 Dose: Not Given Documented By: NIKIA Non-Admin Reason: No Insulin Coverage Lamotrigine (Lamotrigine 100 Mg Tablet) 200 mg PO BID [facility] Last Admin: 06/13/22 08:39 Dose: 200 mg Documented By: NIKIA Magnesium Oxide (Magnesium Oxide 400 Mg Tablet) 400 mg PO BID [facility] Last Admin: 06/13/22 08:39 Dose: 400 mg Documented By: NIKIA Ondansetron HCl (Ondansetron Hcl 4 Mg/2 Ml Vial) 4 mg IVPUSH Q8H PRN PRN Reason: Nausea and Vomiting Last Admin: 06/12/22 08:29 Dose: 4 mg Documented By: MIRYAM Pharmacy Consult (Consult Rx Etoh Phenob Im/Po) 1 each MISCELLANE ONCE PRN; Protocol PRN Reason: Consult order Pharmacy Consult (Consult Rx Perform Med Rec) 1 each MISCELLANE ONCE PRN PRN Reason: Consult order Phenobarbital (Phenobarbital 15 Mg Tablet) 45 mg PO BID [facility]; Protocol Stop: 06/14/22 09:01 Last Admin: 06/13/22 08:39 Dose: 45 mg Documented By: NIKIA Phenobarbital (Phenobarbital 15 Mg Tablet) 15 mg PO BID [facility]; Protocol Stop: 06/16/22 09:01 Phenobarbital (Phenobarbital 15 Mg Tablet) 15 mg PO DAILY [facility]; Protocol Stop: 06/18/22 09:01 Quetiapine Fumarate (Quetiapine Fumarate 400 Mg Tablet) 400 mg PO BEDTIME [facility] Last Admin: 06/12/22 22:28 Dose: 400 mg Documented By: MILENA Quetiapine Fumarate (Quetiapine Fumarate 200 Mg Tablet) 200 mg PO BID [facility] Last Admin: 06/13/22 08:39 Dose: 200 mg Documented By: NIKIA Sodium Chloride (0.9 % Sodium Chloride Flush 3 Ml Syringe) [facility] Last Admin: 06/13/22 08:38 Dose: Not Given Documented By: NIKIA Non-Admin Reason: IV Running Thiamine HCl (Thiamine Hcl 100 Mg Tablet) 100 mg PO DAILY [facility] Last Admin: 06/13/22 08:39 Dose: 100 mg Documented By: NIKIA Trazodone HCl (Trazodone Hcl 100 Mg Tablet) 200 mg PO BEDTIME [facility] Last Admin: 06/12/22 22:27 Dose: 200 mg Documented By: MILENA Labs CBC & Chem 7: 06/13/22 06:03 06/13/22 06:03 Labs: Laboratory Results - last 24 hr 06/12/22 06/12/22 06/13/22 19:11 19:49 06:03 MCV 89.4 MCH 31.3 MCHC 35.0 RDW 13.9 Plt Count 79 L D MPV 10.2 Absolute Nucleated RBC 0.000 Nucleated RBC % (auto) 0.0 Anion Gap Estim Creat Clear Calc Estimated GFR POC Glucose 257 H 325 H Random Glucose Calcium 1106/13/22 06/13/22 06:03 07:02 07:21 MCV MCH MCHC RDW Plt Count MPV Absolute Nucleated RBC Nucleated RBC % (auto) Anion Gap 16 Estim Creat Clear Calc 116.1 Estimated GFR > 60 POC Glucose 26 L* 70 Random Glucose 33 L* Calcium 7.5 L 06/13/22 10:46 MCV MCH MCHC RDW Plt Count MPV Absolute Nucleated RBC Nucleated RBC % (auto) Anion Gap Estim Creat Clear Calc Estimated GFR POC Glucose 117 H Random Glucose Calcium Assessment and Plan (1) Hyponatremia: Status: Acute (2) Starvation ketoacidosis: Status: Acute (3) Alcohol withdrawal: Status: Acute (4) Dehydration: Status: Acute (5) Alcohol use disorder: Status: Acute Plan 41-year-old male with past medical history of alcohol abuse presents to the hospital due to nausea vomiting abdominal pain # alcohol abuse with alcohol withdrawal - continue phenobarb protocol, folic acid, thiamine supplement, continue famotidine - Seen by recovery team, patient wishes to be placed on naltrexone and wishes to return to outpatient treatment including therapy/Psychiatry Recommend out of bed to ambulation # alcoholic ketoacidosis/starvation ketoacidosis - anion gap closed, DC IV fluids, recommend outpatient therapy and complete abstinence from alcohol encourage by mouth intake - anion gap metabolic acidosis Likely due to alcohol abuse, resolved will DC IV fluids strongly recommend to abstain from alcohol # hyponatremia - likely secondary to decreased solute intake - sodium improved from 129-131 , follow BMP, will DC IV fluid # diabetes type 1 - no DKA, noted to have low blood sugar this morning despite low-dose Lantus at night, will further lower dose of Lantus continue correction scale insulin and diabetic diet follow blood sugars q.i.d. and hs # bipolar disorder continue home medications DVT prophylaxis: Lovenox In my clinical judgment patient need continued inpatient hospitalization due to alcohol withdrawal and episodes of hypoglycemia requiring close blood sugar monitoring Quality Stroke Does the patient have a stroke diagnosis?: No VTE Prior VTE?: No VTE Risk Level:: Medical - moderate - high VTE Device Contraindication: Treatment Not Indicated VTE Drug Contraindication: N/A - Med Ordered
[2022-06-13 15:53] LABS: Glucose, Whole Blood 224 mg/dL (60-115)
[2022-06-13] MEDS: 0.9 % Sodium Chloride Flush 3 ML SYRINGE IVFLUSH (15:53)
[2022-06-13] MEDS: Insulin Lispro 100 UNIT/ML 3 ML VIAL SUBCUT (16:42)
--- NOTE | 2022-06-13 17:31 | PC.NURSE ---
Pt deemed high fall risk due to CIWA protocol. Pt refuses bed alarm and ambulates independently. Pt ambulates w/o a signs of an unsteady gait, or dizzyness.
[2022-06-13 20:02] LABS: Glucose, Whole Blood 92 mg/dL (60-115)
[2022-06-13] MEDS: QUEtiapine Fumarate 400 MG TABLET PO (20:43)
[2022-06-13] MEDS: traZODone HCL 100 MG TABLET 200 MG PO (20:49)
[2022-06-14 03:49] VITALS: BP 107/66; PULSE 72; RESP 16; TEMP 36.1; O2SAT 97
[2022-06-14 07:10] VITALS: BP 110/81; PULSE 89; RESP 18; TEMP 36.1; O2SAT 100
[2022-06-14 07:15] LABS: Glucose, Whole Blood 233 mg/dL (60-115)
[2022-06-14] MEDS: cloNIDine HCL 0.2 MG TABLET PO (08:17)
[2022-06-14] MEDS: QUEtiapine Fumarate 200 MG TABLET PO (08:17)
[2022-06-14] MEDS: Thiamine HCL 100 MG TABLET PO (08:17)
[2022-06-14] MEDS: Folic Acid 1 MG TABLET PO (08:17)
[2022-06-14] MEDS: lamoTRIgine 100 MG TABLET 200 MG PO (08:17)
[2022-06-14] MEDS: Famotidine 20 MG TABLET PO (08:17)
[2022-06-14] MEDS: Escitalopram Oxalate 20 MG TABLET PO (08:18)
[2022-06-14] MEDS: Insulin Lispro 100 UNIT/ML 3 ML VIAL SUBCUT ×2 (08:18→12:00)
[2022-06-14] MEDS: PHENobarbitaL 15 MG TABLET 45 MG PO (08:18)
[2022-06-14] MEDS: Magnesium Oxide 400 MG TABLET PO (08:18)
[2022-06-14] MEDS: 0.9 % Sodium Chloride Flush 3 ML SYRINGE IVFLUSH (08:22)
--- NOTE | 2022-06-14 10:44 | PM.DS ---
DS: Providers Provider Date of Service: 06/14/22 Date of admission: 06/12/22 03:36 Primary care physician: Beena Melo MD Consults: 06/12/22 15:39 Consult to Care Team Routine Comment: Reason for consultation: etoh DS: Diagnosis Discharge Diagnosis (1) Hyponatremia: Status: Acute (2) Starvation ketoacidosis: Status: Acute (3) Alcohol withdrawal: Status: Acute (4) Dehydration: Status: Acute (5) Alcohol use disorder: Status: Acute DS: Summary Hospital Course Hospital Course: Date of Service: 06/12/22 Chief Complaint: Alcohol withdrawal This is a 41-year-old male with past medical history of alcohol abuse, diabetes type 1, diabetic neuropathy, presents to the hospital with complaints of alcohol withdrawal, dehydration.? Patient reports that he stop drinking on Sunday because he wants to abstain from alcohol.? Patient reports that ever since he has had nausea, vomiting, diffuse abdominal pain, he has had low oral intake.? He reports that because he has not been eating he is also not been taking his insulin.? He denies any fever but has chills, chest pain, no palpitations, no shortness of breath, had 1 episode of diarrhea, no constipation, no urinary symptoms and no lower extremity edema.? On arrival to the ED patient hemodynamically stable with a heart rate of 114, respiratory rate of 22, blood pressure of 156/105 Labs are significant for WBC count of 4.8, hemoglobin of 13.4, hematocrit of 38 point 4, platelet count of 141, sodium of 129, potassium of 4.3, chloride of 78, positive anion gap, glucose of 286, total bili of 3.2, direct bili of 1.9, AST of 274, ALT of 2 1, glucose of 260, UA negative for any acute infection, pH of 7.4 Hospital course 41-year-old male with past medical history of alcohol abuse presents to the hospital due to nausea vomiting abdominal pain # alcohol abuse with alcohol withdrawal patient admitted to medical floor treated with phenobarb protocol folic acid and thiamine,Seen by recovery team, patient wishes to be placed on naltrexone and wishes to return to outpatient treatment including therapy/Psychiatry, since patient is ambulating with steady gait he is being discharged home with strong recommendation to abstain from alcohol # alcoholic ketoacidosis/starvation ketoacidosis, patient treated with IV fluids and a gap closed strongly recommend to abstain from alcohol # hyponatremia- likely secondary to decreased solute intake, as, sodium improved from 129-136 , # hypokalemia due to IV fluids repleted and normalized # diabetes type 1- no DKA, noted to have low blood sugar therefore dose of Lantus is reduced from 50 units to 25 units recommend to increase dose of Lantus if noted to have high blood sugars and recommend close outpatient follow-up with PCP # bipolar disorder continue home medications Time Spent with Patient Time attestation: Total time spent providing and/or coordinating discharge services: Discharge coordination time: Greater than 30 minutes Quality: Safe Use of Opioids Does Pt have an Active Cancer Diagnosis on the Problem List?: No Quality: Stroke Does the patient have a stroke diagnosis?: No Physical Exam Vital Signs: Vital Signs: Last Vital Signs Temp 97 F 06/14/22 07:10 Pulse 89 06/14/22 07:10 Resp 18 06/14/22 07:10 BP 110/81 06/14/22 07:10 Pulse Ox 100 06/14/22 07:10 O2 Del Method 06/14/22 07:10 O2 Flow Rate 3 06/12/22 14:00 BMI result Body Mass Index 22.1 Const: Other: General awake alert x3, in no acute distress.? Neck is supple no JVD. CVS? regular rate rhythm, Respiratory lungs clear to auscultation, no respiratory distress, no wheeze, no rhonchi. Gastrointestinal abdomen soft, nontender, bowel sounds audible, no guarding , no rigidity. Extremities no edema. Neuro nonfocal patient moving all 4 extremity speech clear. Skin no rash Psych appropriate affect DS: Data Data Completed and Pending Completed studies during hospitalization [Text1]: Procedures Detoxification Services for Substance Abuse Treatment (05/21/22) Insertion of Endotracheal Airway into Trachea, Via Natural or Artificial Opening (01/27/22) Insertion of Infusion Device into Superior Vena Cava, Percutaneous Approach (05/21/22) Respiratory Ventilation, Less than 24 Consecutive Hours (01/27/22) Ultrasonography of Superior Vena Cava, Guidance (05/21/22) Labs on day of discharge: Laboratory Results - last 24 hr 06/13/22 06/13/22 06/13/22 10:46 15:47 19:46 POC Glucose 117 H 224 H 92 06/14/22 07:10 POC Glucose 233 H Discharge Plan Discharge Anticipated Discharge Date/Time: 06/14/22 11:22 Patient Disposition: Home, Self-Care Discharge Diagnosis: Alcohol abuse and withdrawal Alcoholic ketoacidosis Hyponatremia Referrals: Beena Melo MD [Primary Care Provider] - 1 Week Discharge Medications: Continued (DME) lancets [TRUEplus Lancets] 33 gauge misc See Rx Instructions .Route Qty: 200 11RF Rx Instructions: Four times a day (DME) pen needle, diabetic [BD July 2nd Gen Pen Needle] 32 gauge x 5/32 needle See Rx Instructions .MEDSUPPLY Qty: 150 4RF Rx Instructions: 5 times a day (DME) FreeStyle Lite Strips Strip See Rx Instructions .Route Qty: 150 11RF Rx Instructions: Four times a day famotidine [Pepcid AC] 20 mg Tablet 20 mg PO DAILY quetiapine 400 mg tablet 1 tab PO BEDTIME quetiapine 400 mg tablet extended release 24 hr 1 tab PO QAM insulin aspart U-100 [Novolog Flexpen U-100 Insulin] 100 unit/mL (3 mL) insulin pen 0 sliding scale dose subcut QIDACHS Protocol: Insulin Correction Scale Less than or equal to 110 ---- Give (units): 0 111 to 150 Give (units): 0 151 to 200 Give (units): 2 201 to 250 Give (units): 4 251 to 300 Give (units): 6 301 to 350 Give (units): 8 Greater than 350 Give (units): 10 Call MD if Blood Glucose > : 350 lamotrigine 200 mg tablet 200 mg PO BID zolpidem 5 mg tablet 1 tab PO BEDTIME trazodone 100 mg tablet 200 mg PO BEDTIME clonidine HCl 0.2 mg tablet 0.2 mg PO BID citalopram 40 mg tablet 40 mg PO DAILY thiamine HCl (vitamin B1) 100 mg tablet 100 mg PO DAILY folic acid 1 mg tablet 1 mg PO DAILY magnesium oxide 400 mg (241.3 mg magnesium) tablet 400 mg PO BID Changed insulin glargine [Lantus Solostar U-100 Insulin] 100 unit/mL (3 mL) insulin pen 25 unit subcut DAILY Qty: 15 0RF Discharge Orders: Discharge Order (Routine); Ordered 06/14/22 Ordered By: Julee Ornelas Diet: Diabetic diet Activity on Discharge: As tolerated Stand Alone Forms: Patient Portal Discharge page Care Plan Goals: Alcohol abuse and withdrawal patient strongly recommended to abstain, seen by care team and recommended outpatient treatment including therapy and Psychiatry Diabetes mellitus strongly recommend to follow diabetic diet Mild hyponatremia due to alcohol Health Concerns: Diabetes mellitus noted to have few low blood sugar readings therefore dose of Lantus reduced from 50 units to 25 units, if noted to have elevated blood sugars above 150 recommend to increase dose pack to Lantus 50 units Plan of Treatment: Outpatient follow-up with primary care physician and Endocrinology for diabetes mellitus Assessment: As above
[2022-06-14 10:56] LABS: Anion Gap 14 (12-20); Blood Urea Nitrogen 11 mg/dL (9-16); Calcium 7.8 mg/dL (8.4-10.2); Carbon Dioxide 22 mmol/L (22-29); Chloride 104 mmol/L (96-108); Creatinine Clr Calc Pharmacy 116.1; Estimated Glomerular Filt Rate > 60; Glucose Random 188 mg/dL (60-115); Potassium 3.6 mmol/L (3.3-5.1); Sodium 136 mmol/L (135-145)
[2022-06-14 11:09] VITALS: BP 128/69; PULSE 90; RESP 18; TEMP 36.3; O2SAT 98
[2022-06-14 11:23] LABS: Glucose, Whole Blood 167 mg/dL (60-115)
--- NOTE | 2022-06-14 11:42 | MHC.CLN ---
NUTRITION PATIENT WITH SIGNIFICANT WEIGHT LOSS X 6 MONTHS, -22%. ATTRIBUTES WEIGHT LOSS TO DRINKING ALCOHOL AND NOT EATING. CURRENT INTAKE UPON ADMISSION APPEARS GOOD. TAKES GLUCERNA AT HOME. SCHEDULED FOR DISCHARGE TODAY. RECOMMEND CONTINUE DIABETIC DIET WITH GLUCERNA SUPPLEMENT DESIRED/NEEDED.
[2022-06-14 11:45] VITALS: BMI 22.1
--- NOTE | 2022-06-14 12:16 | MHC.CM.PN ---
IMM 06/14/22 Patient is discharged today, home-selfcare. He has been given a voucher for [employer]. He will receive a ride home from the [facility] @ 1PM.
== END 2022-06-14 13:17 | disposition home or self-care (01) | DRG 641 ==
LOC: HO.ED 06-12 02:21 → HO.EDOVER 06-12 03:41 → HO.S3 06-12 18:48
PROVIDERS: Admitting Provider Internal Medicine; Emergency Provider Student in an Organized Health Care Education/Training Program; PCP Internal Medicine; Visit Provider Hospitalist
DX: E87.1 Hypo-osmolality and hyponatremia (principal); F10.139 Alcohol abuse with withdrawal, unspecified; E10.65 Type 1 diabetes mellitus with hyperglycemia; E87.29 Other acidosis; E10.40 Type 1 diabetes mellitus with diabetic neuropathy, unspecified; F31.9 Bipolar disorder, unspecified; E87.6 Hypokalemia; E86.0 Dehydration; Z20.822 Contact with and (suspected) exposure to COVID-19; Z88.0 Allergy status to penicillin; Z88.8 Allergy status to other drugs, medicaments and biological substances; Z79.4 Long term (current) use of insulin; Z79.899 Other long term (current) drug therapy
CPT/HCPCS: 0241U; 36415; 80048; 80053; 80076; 80307; 81001; 82009; 82077; 82803; 82947; 83690; 83735; 84100; 84484; 85025; 85027; 93005; 99285; J1650; J2405; J2560; J3475

== ENCOUNTER 2022-09-03 18:29 | Inpatient (IN) | payer OTHER, SELFPAY ==
--- NOTE | ~2022-09-03 | CT_ITS ---
EXAMINATION: CT HEAD WITHOUT CONTRAST CLINICAL INFORMATION: Acute mental status change COMPARISON: Head CT 01/27/2022 TECHNIQUE: Imaging was performed from the skull base to vertex without intravenous administration of contrast. This CT examination was performed using dose optimization techniques as appropriate, variously including the following: *Automated exposure control *Adjustment of mA and/or kV according to patient size (this includes techniques or standardized protocols for targeted exams where dose is matched to indication/reason for exam; i.e. extremities or head) *Use of iterative reconstruction technique Total exam dose length product: 759 mGy-cm FINDINGS: No intra or extra-axial fluid collection, hemorrhage, or mass. No ventriculomegaly. No midline shift or herniation. Basal cisterns are patent. Person-white matter differentiation is maintained. No territorial encephalomalacia. No significant volume loss. There is no abnormal attenuation within the brain parenchyma. No calvarial fracture or soft tissue abnormality. The mastoid air cells and visualized portions of the paranasal sinuses are well aerated. CT/CT head/brain wo IV con IMPRESSION: 1. No acute intracranial pathology.
--- NOTE | ~2022-09-03 | XR_ITS ---
EXAMINATION: XR CHEST CLINICAL INFORMATION: Acute mental status change COMPARISON: Chest x-ray 05/20/2022 TECHNIQUE: Frontal view of the chest was obtained. FINDINGS: Lungs are mildly hypoinflated. No airspace consolidation, pleural effusion, or pneumothorax. Normal cardiomediastinal silhouette and pulmonary vascularity. No acute osseous injury identified. XR/XR chest 1V IMPRESSION: No acute pulmonary process.
--- NOTE | 2022-09-03 18:47 | ECG_ITS ---
Test Reason : ams Blood Pressure : / mmHG Vent. Rate : 109 BPM Atrial Rate : 109 BPM P-R Int : 136 ms QRS Dur : 094 ms QT Int : 384 ms P-R-T Axes : 065 059 074 degrees QTc Int : 517 ms Sinus tachycardia Otherwise normal ECG When compared with ECG of 11-JUN-2022 22:19, T wave amplitude has decreased in Inferior leads T wave amplitude has decreased in Lateral leads QT has lengthened Referred By: Kodi Roberts Electronically Signed By:Carlos Chew
--- NOTE | 2022-09-03 18:47 | ECG_ITS ---
Test Reason : dka Blood Pressure : / mmHG Vent. Rate : 096 BPM Atrial Rate : 096 BPM P-R Int : 148 ms QRS Dur : 112 ms QT Int : 460 ms P-R-T Axes : 075 060 064 degrees QTc Int : 581 ms Normal sinus rhythm Minimal voltage criteria for LVH, may be normal variant ( Sumit product ) Prolonged QT Abnormal ECG When compared with ECG of 03-SEP-2022 18:40, ST no longer elevated in Inferior leads QT has lengthened Referred By: Kodi Roberts Electronically Signed By:Carlos Chew
[2022-09-03 18:49] VITALS: BP 76/44; PULSE 108; RESP 28; O2SAT 100; BMI 16.9
--- NOTE | 2022-09-03 18:50 | ED.AMS ---
HPI - Altered Mental Status General Chief Complaint: Altered Mental Status Stated Complaint: HIGH BS 526 PER EMS Time Seen by Provider: 09/03/22 18:33 Source: EMS Mode of arrival: EMS Limitations: altered mental status History of Present Illness HPI narrative: Patient 41 years old with past medical history of alcohol abuse diabetes type 1 diabetic neuropathy brought by EMS for decreased responsiveness noticed to have POC of 526. Of the patient's sister went to his house as he did not answer the phone when she reached noticed him lethargic and he passed out in front of her patient told family that did not have alcohol drink for last 4 days. Patient admitted here on 06/12/2022 for alcohol withdrawal no history of seizures no history of head injury when patient arrived was hypertensive blood pressure 76/44, pulse rate 108 respiratory rate 28 on saturating 100% on non-rebreather Related Data Home Medications Medication Instructions Recorded Confirmed clonidine HCl 0.2 mg tablet 0.2 mg PO BID 11/11/20 06/12/22 trazodone 100 mg tablet 200 mg PO BEDTIME 11/11/20 06/12/22 lamotrigine 200 mg tablet 200 mg PO BID 01/28/22 06/12/22 citalopram 40 mg tablet 40 mg PO DAILY 02/08/22 06/12/22 folic acid 1 mg tablet 1 mg PO DAILY 02/08/22 06/12/22 magnesium oxide 400 mg (241.3 mg 400 mg PO BID 02/08/22 06/12/22 magnesium) tablet thiamine HCl (vitamin B1) 100 mg 100 mg PO DAILY 02/08/22 06/12/22 tablet zolpidem 5 mg tablet 1 tab PO BEDTIME 03/14/22 06/12/22 famotidine 20 mg tablet (Pepcid AC) 20 mg PO DAILY 05/21/22 06/12/22 insulin aspart U-100 100 unit/mL 0 sliding scale dose subcut QIDACHS 06/12/22 06/12/22 (3 mL) subcutaneous pen (Novolog FlexPen U-100 Insulin aspart) quetiapine 400 mg tablet 1 tab PO BEDTIME 06/12/22 06/12/22 quetiapine 400 mg tablet,extended 1 tab PO QAM 06/12/22 06/12/22 release 24 hr Previous Rx's Medication Instructions Recorded lancets 33 gauge (TRUEplus Lancets) #200 ea 03/08/21 pen needle, diabetic 32 gauge x #150 ea 02/07/22/32 (BD July 2nd Gen Pen Needle) blood sugar diagnostic (FreeStyle #150 ea 03/20/22 Lite Strips) insulin glargine 100 unit/mL (3 25 unit (0.25 mL) subcut DAILY #15 06/14/22 mL) subcutaneous pen (Lantus mL Solostar U-100 Insulin) Allergies Allergy/AdvReac Type Severity Reaction Status Date / Time clonazepam Allergy Unknown Unknown Verified 02/08/22 09:46 meropenem [MEROPENEM] Allergy Unknown SWELLING Verified 02/08/22 09:46 penicillin G procaine Allergy Unknown itching Verified 02/08/22 09:46 Penicillins [PENICILLINS] Allergy Unknown SWELLING Verified 02/08/22 09:46 lorazepam [From Ativan] Allergy Anaphylaxis Verified 02/08/22 09:46 Review of Systems Review of Systems: Yes Unobtainable due to mental status PMFSH Past Medical History Medical History (Updated 09/03/22 @ 23:27 by Veronica Rodríguez NP) Alcohol use disorder Bacteremia Bipolar disorder 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 Mother Diabetes Social History Social History Household Members: None Household Members Other:: with dog Housing: Apartment Do you presently have visiting nurse or other home services: No Alcohol intake: current Alcohol intake frequency: 3 or more drinks per day Patient Tobacco Use Status: Never used Tobacco Smoked in Last 30 Days: No e-Cigarette/Vaping Use: Never Used Patient Interested in Nicotine Replacement: No Patient Given Instructions on How to Stop Smoking: No Second Hand Smoke Exposure: No Use of substances other than those prescribed or required for medical reasons: No Currently Displaying Signs/Symptoms of Drug Intoxication Withdrawal: No Any prior treatment program specific to substance use: No Have you been hit, kicked, punched, or otherwise hurt by someone within the past year? If so, by whom?: No Do you feel safe in your current relationship?: No Current Relationship Is there a partner from a previous relationship who is making you feel unsafe now?: No Are you made to feel afraid or neglected: No Spiritual Healthcare Practices: SCIENTOLOGIST Advance Directives: No Advance Directives Information Provided: Yes Do you have thoughts of harming others: None Do you have a plan to hurt others: No Plan Recently lost weight without trying: Yes How much weight loss: 24-33 pounds Eating poorly because of decreased appetite: Yes Nutrition screen score: 6 Nutrition Risks: Diabetes new onset/Uncontrolled and Poor intake 0-25% >4 days Poor oral hygiene: Yes service: Yes Current occupational status: employed Physical Exam ED Vital Signs: Vital Signs - 24 hr 09/03/22 18:49 09/03/22 21:34 09/03/22 22:25 Pulse Rate 108 H 91 98 Respiratory Rate 28 H 16 16 Blood Pressure 76/44 L 117/75 122/81 Pulse Oximetry 100 100 100 Oxygen Delivery Method Non-Rebreather Mask Nasal Cannula Nasal Cannula Oxygen Flow Rate 2 2 Fraction of Inspired Oxygen 100 BMI result Body Mass Index 16.9 Appearance: Obtunded moving all 4 extremities to painful stimuli Eyes: PERRLA, No Nystagmus ENT: Pharynx normal. Oral Mucosa moist Neck: Normal inspection. Neck supple. CVS: Normal heart rate and rhythm. Pulses normal. Respiratory: No respiratory distress. Equal air entry bilateral, no wheezing/rales/rhonchi Abdomen: Soft and nontender. Bowel sounds are present, no mass palpable, Skin: Skin warm and dry. Normal skin color. Normal skin turgor. Extremities: No lower extremity edema. No calf tenderness Neuro: obtunded moving all 4 extremities to painful stimuli Medications Administered Generic Name Dose Route Start Last Admin Trade Name Freq PRN Reason Stop Dose Admin Enoxaparin Sodium 40 mg 09/03/22 23:00 09/04/22 00:23 Enoxaparin Sodium 40 Mg/0.4 Ml Syringe SUBCUT 40 mg Q24H MAINOR Administration Insulin Human Regular 100 unit in 100 mls @ 6 mls/hr 09/03/22 19:45 09/04/22 00:49 Myxredlin IVCONT 1 unit/hr .[id number] MAINOR 1 mls/hr Titration Protocol 6 UNIT/HR Dextrose/Sodium Chloride 1,000 mls @ 150 mls/hr 09/03/22 22:45 09/03/22 22:39 D51/2ns IVCONT 150 mls/hr .[id number] MAINOR Administration Ondansetron HCl 4 mg 09/03/22 23:00 09/04/22 00:21 Ondansetron Hcl 4 Mg/2 Ml Vial IVPUSH 4 mg Q8H PRN Administration Nausea and Vomiting Discontinued Medications Generic Name Dose Route Start Last Admin Trade Name Freq PRN Reason Stop Dose Admin Sodium Chloride 1,000 mls @ 999 mls/hr 09/03/22 18:46 09/03/22 19:46 Ns IV 09/03/22 19:46 Infused .Q1H1M ONE Infusion Sodium Chloride 1,000 mls @ 999 mls/hr 09/03/22 18:48 09/03/22 19:46 Ns IV 09/03/22 19:48 Infused .Q1H1M ONE Infusion Magnesium Sulfate 2 gm in 50 mls @ 100 mls/hr 09/03/22 18:54 09/03/22 20:45 Magnesium Sulfate/H2o IV 09/03/22 19:23 Infused ONCE ONE Infusion Sodium Chloride 1,000 mls @ 999 mls/hr 09/03/22 19:29 09/03/22 20:46 Ns IV 09/03/22 20:29 Not Given .Q1H1M ONE Ceftriaxone Sodium 1 gm/ 50 mls @ 100 mls/hr 09/03/22 19:52 09/03/22 21:25 Sodium Chloride IV 09/03/22 20:21 Infused ONCE ONE Infusion Potassium Chloride 10 meq in 100 mls @ 100 mls/hr 09/03/22 22:45 09/04/22 00:25 Potassium Chloride/H20 IV 09/04/22 00:44 100 mls/hr Q1H MAINOR Administration Insulin Human Regular 14 unit 09/03/22 19:04 09/03/22 19:17 Insulin Regular, Human 100 Unit/Ml 3 Ml Vial IVPUSH 09/03/22 19:05 14 unit ONCE ONE Administration Potassium Chloride 40 meq 09/03/22 23:51 09/04/22 00:28 Potassium Chloride Packet 20 Meq Packet PO 09/03/22 23:52 40 meq ONCE ONE Administration Sodium Bicarbonate 50 meq 09/03/22 19:33 09/03/22 19:42 Sodium Bicarbonate 8.4% 50 Meq/50 Ml Syringe IVPUSH 09/03/22 19:34 50 meq ONCE ONE Administration Medical Decision Making Medical Decision Making [facility] Narrative: Patient alcohol abuse disorder with type 1 diabetes came with altered mental status with elevated blood sugar with bicarb of less than 5 with venous pH 7.02 ketones positive started on insulin drip for DKA patient responded to the management is more alert and awake now x3 taking p.o. fluids and food will continue D5 half-normal along with insulin drip Lab Data [facility] Lab Attestation statement: I reviewed the patient's lab results. 09/03/22 18:53 09/03/22 18:53 Labs: Lab Results 09/03/22 09/03/22 09/03/22 Range/Units 18:38 18:52 18:53 WBC (4.8-10.8) X10*3/uL RBC (4.60-5.80) X10*6/uL Hgb (14.0-18.0) g/dl Hct (42.0-52.0) % MCV (80.0-98.0) fL MCH (27.0-33.0) pg MCHC (31.0-36.0) g/dl RDW (11.0-16.0) % Plt Count (160-400) X10*3/uL MPV (9.4-12.4) fL Immature Gran % (Auto) (0.0-0.4) % Neut % (Auto) (45-73) % Lymph % (Auto) (20-40) % [place] % (Auto) (2-11) % Eos % (Auto) (0-4) % Baso % (Auto) (0-2) % Lymph # (Auto) (1.2-4.9) X10*3/uL [place] # (Auto) (0.1-1.2) X10*3/uL Eos # (Auto) (0.0-0.4) X10*3/uL Baso # (Auto) (0.0-0.2) X10*3/uL Abs Immat Gran (auto) (0.00-0.03) X10*3/uL Absolute Neuts (auto) (2.0-8.3) x10*3/uL Absolute Nucleated RBC (0.0-0.012) X10*3/uL Nucleated RBC % (auto) (0.0-0.2) /100WBC PT (10.0-13.1) SEC INR (0.9-1.1) VBG pH (7.32-7.43) VBG pCO2 mmHg VBG pO2 mmHg VBG HCO3 (22-26) mmol/L VBG O2 Saturation % VBG Base Excess mmol/L Sodium (135-145) mmol/L Potassium (3.3-5.1) mmol/L Chloride (96-108) mmol/L Carbon Dioxide (22-29) mmol/L Anion Gap BUN (9-16) mg/dL Creatinine (0.5-1.4) mg/dL Estim Creat Clear Calc Estimated GFR POC Glucose 509 H* (60-115) mg/dL Random Glucose (60-115) mg/dL Lactic Acid 2.6 H* (0.5-2.0) mmol/L Lactic Acid F/U @ 2Hr (0.5-2.0) mmol/L Calcium (8.4-10.2) mg/dL Phosphorus (2.7-4.5) mg/dL Magnesium (1.6-2.6) mg/dL Total Bilirubin (0.0-1.0) mg/dL AST (5-37) U/L ALT (0-40) U/L Alkaline Phosphatase (39-117) U/L Ammonia 100 H (13-55) umol/L Troponin I High Sens (<3.5-35.0) ng/L Total Protein (6.5-8.0) g/dL Albumin (3.5-5.0) g/dL Lipase (8-78) U/L Urine Color Urine Appearance Urine pH (5.0-9.0) Ur Specific [place] (1.005-1.025) Urine Protein (Neg-Trace) mg/dL Urine Glucose (UA) (Negative) mg/dL Urine Ketones (Negative) mg/dL Urine Blood (Negative) Urine Nitrite (Negative) Ur Leukocyte Esterase (Negative) Urine RBC (0-2) /HPF Urine WBC (0-5) /HPF Ur Squamous Epith Cells (0-2) /HPF Urine Bacteria (None Seen) Hyaline Casts (0-2) /LPF Urine Opiates Screen (Not Detect) Urine Fentanyl Screen (Not Detect) Ur Barbiturates Screen (Not Detect) Ur Phencyclidine Scrn (Not Detect) Ur Amphetamines Screen (Not Detect) U Benzodiazepines Scrn (Not Detect) Urine Cocaine Screen (Not Detect) U Marijuana (THC) Screen (Not Detect) Ethyl Alcohol mg/dL Acetone, Qual (Negative) COVID-19 (ALLEN) (Negative) COVID-19 Clin Com 09/03/22 09/03/22 09/03/22 Range/Units 18:53 18:53 18:53 WBC 9.3 (4.8-10.8) X10*3/uL RBC 3.99 L D (4.60-5.80) X10*6/uL Hgb 12.8 L D (14.0-18.0) g/dl Hct 35.4 L D (42.0-52.0) % MCV 88.7 (80.0-98.0) fL MCH 32.1 (27.0-33.0) pg MCHC 36.2 H (31.0-36.0) g/dl RDW 13.7 (11.0-16.0) % Plt Count 181 D (160-400) X10*3/uL MPV 10.0 (9.4-12.4) fL Immature Gran % (Auto) 1.4 H (0.0-0.4) % Neut % (Auto) 83.9 H (45-73) % Lymph % (Auto) 5.9 L (20-40) % [place] % (Auto) 8.5 (2-11) % Eos % (Auto) 0.1 (0-4) % Baso % (Auto) 0.2 (0-2) % Lymph # (Auto) 0.6 L (1.2-4.9) X10*3/uL [place] # (Auto) 0.8 (0.1-1.2) X10*3/uL Eos # (Auto) 0.0 (0.0-0.4) X10*3/uL Baso # (Auto) 0.0 (0.0-0.2) X10*3/uL Abs Immat Gran (auto) 0.13 H (0.00-0.03) X10*3/uL Absolute Neuts (auto) 7.8 (2.0-8.3) x10*3/uL Absolute Nucleated RBC 0.030 H (0.0-0.012) X10*3/uL Nucleated RBC % (auto) 0.3 H (0.0-0.2) /100WBC PT 12.4 (10.0-13.1) SEC INR 1.1 (0.9-1.1) VBG pH (7.32-7.43) VBG pCO2 mmHg VBG pO2 mmHg VBG HCO3 (22-26) mmol/L VBG O2 Saturation % VBG Base Excess mmol/L Sodium 118 L* (135-145) mmol/L Potassium 4.1 (3.3-5.1) mmol/L Chloride 82 L D (96-108) mmol/L Carbon Dioxide < 5 L* D (22-29) mmol/L Anion Gap TNP BUN 24 H (9-16) mg/dL Creatinine 1.74 H (0.5-1.4) mg/dL Estim Creat Clear Calc 40.8 Estimated GFR 43 POC Glucose (60-115) mg/dL Random Glucose 469 H* (60-115) mg/dL Lactic Acid (0.5-2.0) mmol/L Lactic Acid F/U @ 2Hr (0.5-2.0) mmol/L Calcium 7.6 L (8.4-10.2) mg/dL Phosphorus (2.7-4.5) mg/dL Magnesium 2.6 (1.6-2.6) mg/dL Total Bilirubin 0.8 (0.0-1.0) mg/dL AST 25 (5-37) U/L ALT 24 (0-40) U/L Alkaline Phosphatase 122 H (39-117) U/L Ammonia (13-55) umol/L Troponin I High Sens (<3.5-35.0) ng/L Total Protein 6.7 (6.5-8.0) g/dL Albumin 3.9 (3.5-5.0) g/dL Lipase 4 L (8-78) U/L Urine Color Urine Appearance Urine pH (5.0-9.0) Ur Specific [place] (1.005-1.025) Urine Protein (Neg-Trace) mg/dL Urine Glucose (UA) (Negative) mg/dL Urine Ketones (Negative) mg/dL Urine Blood (Negative) Urine Nitrite (Negative) Ur Leukocyte Esterase (Negative) Urine RBC (0-2) /HPF Urine WBC (0-5) /HPF Ur Squamous Epith Cells (0-2) /HPF Urine Bacteria (None Seen) Hyaline Casts (0-2) /LPF Urine Opiates Screen (Not Detect) Urine Fentanyl Screen (Not Detect) Ur Barbiturates Screen (Not Detect) Ur Phencyclidine Scrn (Not Detect) Ur Amphetamines Screen (Not Detect) U Benzodiazepines Scrn (Not Detect) Urine Cocaine Screen (Not Detect) U Marijuana (THC) Screen (Not Detect) Ethyl Alcohol mg/dL Acetone, Qual Moderate H (Negative) COVID-19 (ALLEN) (Negative) COVID-19 Clin Com 09/03/22 09/03/22 09/03/22 Range/Units 18:53 18:53 18:58 WBC (4.8-10.8) X10*3/uL RBC (4.60-5.80) X10*6/uL Hgb (14.0-18.0) g/dl Hct (42.0-52.0) % MCV (80.0-98.0) fL MCH (27.0-33.0) pg MCHC (31.0-36.0) g/dl RDW (11.0-16.0) % Plt Count (160-400) X10*3/uL MPV (9.4-12.4) fL Immature Gran % (Auto) (0.0-0.4) % Neut % (Auto) (45-73) % Lymph % (Auto) (20-40) % [place] % (Auto) (2-11) % Eos % (Auto) (0-4) % Baso % (Auto) (0-2) % Lymph # (Auto) (1.2-4.9) X10*3/uL [place] # (Auto) (0.1-1.2) X10*3/uL Eos # (Auto) (0.0-0.4) X10*3/uL Baso # (Auto) (0.0-0.2) X10*3/uL Abs Immat Gran (auto) (0.00-0.03) X10*3/uL Absolute Neuts (auto) (2.0-8.3) x10*3/uL Absolute Nucleated RBC (0.0-0.012) X10*3/uL Nucleated RBC % (auto) (0.0-0.2) /100WBC PT (10.0-13.1) SEC INR (0.9-1.1) VBG pH 7.02 L* (7.32-7.43) VBG pCO2 14 mmHg VBG pO2 161 mmHg VBG HCO3 4 L (22-26) mmol/L VBG O2 Saturation 99.0 % VBG Base Excess -24.8 mmol/L Sodium (135-145) mmol/L Potassium (3.3-5.1) mmol/L Chloride (96-108) mmol/L Carbon Dioxide (22-29) mmol/L Anion Gap BUN (9-16) mg/dL Creatinine (0.5-1.4) mg/dL Estim Creat Clear Calc Estimated GFR POC Glucose (60-115) mg/dL Random Glucose (60-115) mg/dL Lactic Acid (0.5-2.0) mmol/L Lactic Acid F/U @ 2Hr (0.5-2.0) mmol/L Calcium (8.4-10.2) mg/dL Phosphorus (2.7-4.5) mg/dL Magnesium (1.6-2.6) mg/dL Total Bilirubin (0.0-1.0) mg/dL AST (5-37) U/L ALT (0-40) U/L Alkaline Phosphatase (39-117) U/L Ammonia (13-55) umol/L Troponin I High Sens < 3.5 (<3.5-35.0) ng/L Total Protein (6.5-8.0) g/dL Albumin (3.5-5.0) g/dL Lipase (8-78) U/L Urine Color Urine Appearance Urine pH (5.0-9.0) Ur Specific [place] (1.005-1.025) Urine Protein (Neg-Trace) mg/dL Urine Glucose (UA) (Negative) mg/dL Urine Ketones (Negative) mg/dL Urine Blood (Negative) Urine Nitrite (Negative) Ur Leukocyte Esterase (Negative) Urine RBC (0-2) /HPF Urine WBC (0-5) /HPF Ur Squamous Epith Cells (0-2) /HPF Urine Bacteria (None Seen) Hyaline Casts (0-2) /LPF Urine Opiates Screen (Not Detect) Urine Fentanyl Screen (Not Detect) Ur Barbiturates Screen (Not Detect) Ur Phencyclidine Scrn (Not Detect) Ur Amphetamines Screen (Not Detect) U Benzodiazepines Scrn (Not Detect) Urine Cocaine Screen (Not Detect) U Marijuana (THC) Screen (Not Detect) Ethyl Alcohol < 10 mg/dL Acetone, Qual (Negative) COVID-19 (ALLEN) (Negative) COVID-19 Clin Com 09/03/22 09/03/22 09/03/22 Range/Units 20:34 20:35 20:35 WBC (4.8-10.8) X10*3/uL RBC (4.60-5.80) X10*6/uL Hgb (14.0-18.0) g/dl Hct (42.0-52.0) % MCV (80.0-98.0) fL MCH (27.0-33.0) pg MCHC (31.0-36.0) g/dl RDW (11.0-16.0) % Plt Count (160-400) X10*3/uL MPV (9.4-12.4) fL Immature Gran % (Auto) (0.0-0.4) % Neut % (Auto) (45-73) % Lymph % (Auto) (20-40) % [place] % (Auto) (2-11) % Eos % (Auto) (0-4) % Baso % (Auto) (0-2) % Lymph # (Auto) (1.2-4.9) X10*3/uL [place] # (Auto) (0.1-1.2) X10*3/uL Eos # (Auto) (0.0-0.4) X10*3/uL Baso # (Auto) (0.0-0.2) X10*3/uL Abs Immat Gran (auto) (0.00-0.03) X10*3/uL Absolute Neuts (auto) (2.0-8.3) x10*3/uL Absolute Nucleated RBC (0.0-0.012) X10*3/uL Nucleated RBC % (auto) (0.0-0.2) /100WBC PT (10.0-13.1) SEC INR (0.9-1.1) VBG pH (7.32-7.43) VBG pCO2 mmHg VBG pO2 mmHg VBG HCO3 (22-26) mmol/L VBG O2 Saturation % VBG Base Excess mmol/L Sodium (135-145) mmol/L Potassium (3.3-5.1) mmol/L Chloride (96-108) mmol/L Carbon Dioxide (22-29) mmol/L Anion Gap BUN (9-16) mg/dL Creatinine (0.5-1.4) mg/dL Estim Creat Clear Calc Estimated GFR POC Glucose (60-115) mg/dL Random Glucose (60-115) mg/dL Lactic Acid (0.5-2.0) mmol/L Lactic Acid F/U @ 2Hr (0.5-2.0) mmol/L Calcium (8.4-10.2) mg/dL Phosphorus (2.7-4.5) mg/dL Magnesium (1.6-2.6) mg/dL Total Bilirubin (0.0-1.0) mg/dL AST (5-37) U/L ALT (0-40) U/L Alkaline Phosphatase (39-117) U/L Ammonia (13-55) umol/L Troponin I High Sens (<3.5-35.0) ng/L Total Protein (6.5-8.0) g/dL Albumin (3.5-5.0) g/dL Lipase (8-78) U/L Urine Color Yellow Urine Appearance Clear Urine pH 5.5 (5.0-9.0) Ur Specific [place] 1.020 (1.005-1.025) Urine Protein 30 (1+) H (Neg-Trace) mg/dL Urine Glucose (UA) >=1000 H (Negative) mg/dL Urine Ketones >=160 (Negative) mg/dL Urine Blood Negative (Negative) Urine Nitrite Negative (Negative) Ur Leukocyte Esterase Negative (Negative) Urine RBC 0-2 (0-2) /HPF Urine WBC 0-5 (0-5) /HPF Ur Squamous Epith Cells 0-2 (0-2) /HPF Urine Bacteria None Seen (None Seen) Hyaline Casts 3-5 (0-2) /LPF Urine Opiates Screen Not Detected (Not Detect) Urine Fentanyl Screen POSITIVE H (Not Detect) Ur Barbiturates Screen Not Detected (Not Detect) Ur Phencyclidine Scrn Not Detected (Not Detect) Ur Amphetamines Screen Not Detected (Not Detect) U Benzodiazepines Scrn Not Detected (Not Detect) Urine Cocaine Screen Not Detected (Not Detect) U Marijuana (THC) Screen Not Detected (Not Detect) Ethyl Alcohol mg/dL Acetone, Qual (Negative) COVID-19 (ALLEN) Negative (Negative) COVID-19 Clin Com See Note 09/03/22 09/03/22 09/03/22 Range/Units 21:25 21:49 21:49 WBC (4.8-10.8) X10*3/uL RBC (4.60-5.80) X10*6/uL Hgb (14.0-18.0) g/dl Hct (42.0-52.0) % MCV (80.0-98.0) fL MCH (27.0-33.0) pg MCHC (31.0-36.0) g/dl RDW (11.0-16.0) % Plt Count (160-400) X10*3/uL MPV (9.4-12.4) fL Immature Gran % (Auto) (0.0-0.4) % Neut % (Auto) (45-73) % Lymph % (Auto) (20-40) % [place] % (Auto) (2-11) % Eos % (Auto) (0-4) % Baso % (Auto) (0-2) % Lymph # (Auto) (1.2-4.9) X10*3/uL [place] # (Auto) (0.1-1.2) X10*3/uL Eos # (Auto) (0.0-0.4) X10*3/uL Baso # (Auto) (0.0-0.2) X10*3/uL Abs Immat Gran (auto) (0.00-0.03) X10*3/uL Absolute Neuts (auto) (2.0-8.3) x10*3/uL Absolute Nucleated RBC (0.0-0.012) X10*3/uL Nucleated RBC % (auto) (0.0-0.2) /100WBC PT (10.0-13.1) SEC INR (0.9-1.1) VBG pH (7.32-7.43) VBG pCO2 mmHg VBG pO2 mmHg VBG HCO3 (22-26) mmol/L VBG O2 Saturation % VBG Base Excess mmol/L Sodium 129 L (135-145) mmol/L Potassium 3.3 (3.3-5.1) mmol/L Chloride 100 D (96-108) mmol/L Carbon Dioxide 6 L* D (22-29) mmol/L Anion Gap 26 H BUN 22 H (9-16) mg/dL Creatinine 1.22 (0.5-1.4) mg/dL Estim Creat Clear Calc 58.1 Estimated GFR > 60 POC Glucose 142 H (60-115) mg/dL Random Glucose 116 H (60-115) mg/dL Lactic Acid (0.5-2.0) mmol/L Lactic Acid F/U @ 2Hr 1.5 (0.5-2.0) mmol/L Calcium 7.0 L D (8.4-10.2) mg/dL Phosphorus 2.2 L (2.7-4.5) mg/dL Magnesium (1.6-2.6) mg/dL Total Bilirubin (0.0-1.0) mg/dL AST (5-37) U/L ALT (0-40) U/L Alkaline Phosphatase (39-117) U/L Ammonia (13-55) umol/L Troponin I High Sens (<3.5-35.0) ng/L Total Protein (6.5-8.0) g/dL Albumin (3.5-5.0) g/dL Lipase (8-78) U/L Urine Color Urine Appearance Urine pH (5.0-9.0) Ur Specific [place] (1.005-1.025) Urine Protein (Neg-Trace) mg/dL Urine Glucose (UA) (Negative) mg/dL Urine Ketones (Negative) mg/dL Urine Blood (Negative) Urine Nitrite (Negative) Ur Leukocyte Esterase (Negative) Urine RBC (0-2) /HPF Urine WBC (0-5) /HPF Ur Squamous Epith Cells (0-2) /HPF Urine Bacteria (None Seen) Hyaline Casts (0-2) /LPF Urine Opiates Screen (Not Detect) Urine Fentanyl Screen (Not Detect) Ur Barbiturates Screen (Not Detect) Ur Phencyclidine Scrn (Not Detect) Ur Amphetamines Screen (Not Detect) U Benzodiazepines Scrn (Not Detect) Urine Cocaine Screen (Not Detect) U Marijuana (THC) Screen (Not Detect) Ethyl Alcohol mg/dL Acetone, Qual (Negative) COVID-19 (ALLEN) (Negative) COVID-19 Clin Com 09/03/22 09/03/22 Range/Units 22:02 22:25 WBC (4.8-10.8) X10*3/uL RBC (4.60-5.80) X10*6/uL Hgb (14.0-18.0) g/dl Hct (42.0-52.0) % MCV (80.0-98.0) fL MCH (27.0-33.0) pg MCHC (31.0-36.0) g/dl RDW (11.0-16.0) % Plt Count (160-400) X10*3/uL MPV (9.4-12.4) fL Immature Gran % (Auto) (0.0-0.4) % Neut % (Auto) (45-73) % Lymph % (Auto) (20-40) % [place] % (Auto) (2-11) % Eos % (Auto) (0-4) % Baso % (Auto) (0-2) % Lymph # (Auto) (1.2-4.9) X10*3/uL [place] # (Auto) (0.1-1.2) X10*3/uL Eos # (Auto) (0.0-0.4) X10*3/uL Baso # (Auto) (0.0-0.2) X10*3/uL Abs Immat Gran (auto) (0.00-0.03) X10*3/uL Absolute Neuts (auto) (2.0-8.3) x10*3/uL Absolute Nucleated RBC (0.0-0.012) X10*3/uL Nucleated RBC % (auto) (0.0-0.2) /100WBC PT (10.0-13.1) SEC INR (0.9-1.1) VBG pH 7.21 L (7.32-7.43) VBG pCO2 18 mmHg VBG pO2 120 mmHg VBG HCO3 7 L (22-26) mmol/L VBG O2 Saturation 98.0 % VBG Base Excess -17.5 mmol/L Sodium (135-145) mmol/L Potassium (3.3-5.1) mmol/L Chloride (96-108) mmol/L Carbon Dioxide (22-29) mmol/L Anion Gap BUN (9-16) mg/dL Creatinine (0.5-1.4) mg/dL Estim Creat Clear Calc Estimated GFR POC Glucose 101 (60-115) mg/dL Random Glucose (60-115) mg/dL Lactic Acid (0.5-2.0) mmol/L Lactic Acid F/U @ 2Hr (0.5-2.0) mmol/L Calcium (8.4-10.2) mg/dL Phosphorus (2.7-4.5) mg/dL Magnesium (1.6-2.6) mg/dL Total Bilirubin (0.0-1.0) mg/dL AST (5-37) U/L ALT (0-40) U/L Alkaline Phosphatase (39-117) U/L Ammonia (13-55) umol/L Troponin I High Sens (<3.5-35.0) ng/L Total Protein (6.5-8.0) g/dL Albumin (3.5-5.0) g/dL Lipase (8-78) U/L Urine Color Urine Appearance Urine pH (5.0-9.0) Ur Specific [place] (1.005-1.025) Urine Protein (Neg-Trace) mg/dL Urine Glucose (UA) (Negative) mg/dL Urine Ketones (Negative) mg/dL Urine Blood (Negative) Urine Nitrite (Negative) Ur Leukocyte Esterase (Negative) Urine RBC (0-2) /HPF Urine WBC (0-5) /HPF Ur Squamous Epith Cells (0-2) /HPF Urine Bacteria (None Seen) Hyaline Casts (0-2) /LPF Urine Opiates Screen (Not Detect) Urine Fentanyl Screen (Not Detect) Ur Barbiturates Screen (Not Detect) Ur Phencyclidine Scrn (Not Detect) Ur Amphetamines Screen (Not Detect) U Benzodiazepines Scrn (Not Detect) Urine Cocaine Screen (Not Detect) U Marijuana (THC) Screen (Not Detect) Ethyl Alcohol mg/dL Acetone, Qual (Negative) COVID-19 (ALLEN) (Negative) COVID-19 Clin Com Critical Care Time Critical Care Time Critical Care Time: Yes Total Critical Care Time: 90 Attestation: The patient was critically ill with a high probability of imminent or life threatening deterioration. I spent greater than 100 minutes of discontinuous time evaluating the patient,delivering critical care at the bedside, discussing and evaluating pertinent data with consultants. Critical care time does not include time spent performing separately billable procedures or teaching. Total time spent performing critical care was 90 minutes. Discharge Plan Discharge Clinical Impression: Diabetic coma with ketoacidosis, Hyponatremia, Alcohol withdrawal Patient Disposition: Admitted As Inpatient Discharge Date/Time: 09/04/22 00:10
[2022-09-03 18:58] LABS: Glucose, Whole Blood 509 mg/dL (60-115)
[2022-09-03 19:01] LABS: MANUAL DIFF FLAG NO
[2022-09-03 19:02] LABS: Basophils Percent Auto 0.2 % (0-2); Eosinophils Percent Auto 0.1 % (0-4); Hematocrit 35.4 % (42.0-52.0); Hemoglobin 12.8 g/dl (14.0-18.0); Imm Gran Abs Auto 0.13 X10*3/uL (0.00-0.03); Imm Gran Pct Auto 1.4 % (0.0-0.4); Lymphocytes Absolute Auto 0.6 X10*3/uL (1.2-4.9); Lymphocytes Percent Auto 5.9 % (20-40); Mean Corpuscular HGB Conc 36.2 g/dl (31.0-36.0); Mean Corpuscular Hemoglobin 32.1 pg (27.0-33.0); Mean Corpuscular Volume 88.7 fL (80.0-98.0); Monocytes Absolute Auto 0.8 X10*3/uL (0.1-1.2); Monocytes Percent Auto 8.5 % (2-11); NRBC Pct Auto 0.3 /100WBC (0.0-0.2); Neutrophils Absolute Auto 7.8 x10*3/uL (2.0-8.3); Neutrophils Percent Auto 83.9 % (45-73); Platelet Count 181 X10*3/uL (160-400); Red Blood Count 3.99 X10*6/uL (4.60-5.80); Red Cell Distribution Width 13.7 % (11.0-16.0); White Blood Count 9.3 X10*3/uL (4.8-10.8)
[2022-09-03 19:04] LABS: Venous Blood Gas Refer to POC result
[2022-09-03 19:05] LABS: VBG Base Excess -24.8 mmol/L; VBG HCO3 4 mmol/L (22-26); VBG pCO2 14 mmHg; VBG pH 7.02 (7.32-7.43); VBG pO2 161 mmHg
[2022-09-03 19:07] LABS: INTERNATIONAL NORM RATIO 1.1 (0.9-1.1); Prothrombin Time 12.4 SEC (10.0-13.1)
[2022-09-03 19:15] LABS: Acetone, serum QL Moderate (Negative)
[2022-09-03] MEDS: Magnesium Sulfate/H2O 2 GM/50 ML PIGGYBACK IV (19:16)
[2022-09-03] MEDS: 0.9 % Sodium Chloride 1,000 ML 999 ML IV ×2 (19:16)
[2022-09-03] MEDS: Insulin Regular, Human 100 UNIT/ML 3 ML VIAL 14 UNIT IVPUSH (19:17)
[2022-09-03 19:20] LABS: Ethanol < 10 mg/dL
[2022-09-03 19:22] LABS: Lactic Acid 2.6 mmol/L (0.5-2.0)
--- NOTE | 2022-09-03 19:23 | PC.NURSE ---
PT ARRIVED OBTUNDED, UNRESPONSIVE, HYPOTENSIVE, POC 509. FAMILY FOUND PT UNRESPONSIVE ON FLOOR. HX OF DIABETES AND ETOH, NOT DRINK X4 DAYS. PT PLACED ON 10L NON-REBREATHER SATTING 100%. B/P 70S OVER 40S, HR 108. 20g IV INSERTED R EJ, LABS DRAWN, FLUIDS STARTED, PT TAKEN TO CT, XRAY DONE IN ROOM. REPORT PASSED ON TO ONCOMING RN.
[2022-09-03 19:32] LABS: Ammonia 100 umol/L (13-55); Troponin-I High Sensitivity < 3.5 ng/L (<3.5-35.0)
[2022-09-03 19:35] LABS: Alanine Aminotransferase 24 U/L (0-40); Albumin Level 3.9 g/dL (3.5-5.0); Alkaline Phosphatase 122 U/L (39-117); Aspartate Amino Transferase 25 U/L (5-37); Bilirubin Total 0.8 mg/dL (0.0-1.0); Blood Urea Nitrogen 24 mg/dL (9-16); Calcium 7.6 mg/dL (8.4-10.2); Carbon Dioxide < 5 mmol/L (22-29); Chloride 82 mmol/L (96-108); Creatinine Clr Calc Pharmacy 40.8; Estimated Glomerular Filt Rate 43; Glucose Random 469 mg/dL (60-115); Lipase 4 U/L (8-78); Magnesium 2.6 mg/dL (1.6-2.6); Potassium 4.1 mmol/L (3.3-5.1); Sodium 118 mmol/L (135-145); Total Protein 6.7 g/dL (6.5-8.0)
[2022-09-03] MEDS: Sodium Bicarbonate 8.4% 50 MEQ/50 ML SYRINGE IVPUSH (19:42)
[2022-09-03] MEDS: Insulin Regular/NS 100 UNIT/100 ML PLAST..BAG 6 UNIT IVCONT (20:12)
[2022-09-03] MEDS: cefTRIAXone sodium 1 GM in 0.9 % Sodium Chloride 50 ML IV (20:39)
[2022-09-03 20:43] LABS: Appearance Urine Clear; Color Urine Yellow; Glucose Urine UA >=1000 mg/dL (Negative); Leukocyte Esterase Urine Negative (Negative); Nitrite Urine Negative (Negative); PH 5.5 (5.0-9.0); UMIC TRIGGER UACC YES; Urine Blood Negative (Negative); Urine Ketones >=160 mg/dL (Negative); Urine Protein 30 (1+) mg/dL (Neg-Trace)
[2022-09-03 20:52] LABS: Amphetamine Screen Urine Not Detected (Not Detect); Barbiturates, Urine Not Detected (Not Detect); Benzodiazepines Screen Urine Not Detected (Not Detect); Cannabinoid Screen Urine Not Detected (Not Detect); Cocaine Screen Urine Not Detected (Not Detect); Fentanyl, urine POSITIVE (Not Detect); Opiate Screen Urine Not Detected (Not Detect); Phencyclidine Screen Urine Not Detected (Not Detect)
[2022-09-03 20:53] LABS: Bacteria Urine None Seen (None Seen); RBC Urine 0-2 /HPF (0-2); Squamous Epithelial Cell Urine 0-2 /HPF (0-2); WBC Urine 0-5 /HPF (0-5)
[2022-09-03 20:55] LABS: COVID-19 Test Negative (Negative); IDNOW Serial# 6674DD1D
[2022-09-03 20:58] LABS: Reflex Lactate? Lactic Acid Added
[2022-09-03 21:29] LABS: Glucose, Whole Blood 142 mg/dL (60-115)
--- NOTE | 2022-09-03 21:33 | PC.NURSE ---
pt bolld sugar 142. imsulin gtt stopped per pt awake speaking 2-3 word sentences
[2022-09-03 21:34] VITALS: BP 117/75; PULSE 91; RESP 16; O2SAT 100
[2022-09-03 22:08] LABS: VBG Base Excess -17.5 mmol/L; VBG HCO3 7 mmol/L (22-26); VBG pCO2 18 mmHg; VBG pH 7.21 (7.32-7.43); VBG pO2 120 mmHg
[2022-09-03 22:08] LABS: Venous Blood Gas Refer to POC result
[2022-09-03 22:13] LABS: ~Lactic Acid-LAB USE ONLY 1.5 mmol/L (0.5-2.0)
[2022-09-03 22:25] VITALS: BP 122/81; PULSE 98; RESP 16; O2SAT 100
[2022-09-03 22:29] LABS: Anion Gap 26 (12-20); Blood Urea Nitrogen 22 mg/dL (9-16); Carbon Dioxide 6 mmol/L (22-29); Chloride 100 mmol/L (96-108); Creatinine Clr Calc Pharmacy 58.1; Estimated Glomerular Filt Rate > 60; Glucose Random 116 mg/dL (60-115); Potassium 3.3 mmol/L (3.3-5.1); Sodium 129 mmol/L (135-145)
[2022-09-03 22:29] LABS: Glucose, Whole Blood 101 mg/dL (60-115)
[2022-09-03] MEDS: Dextrose 5 % and 0.45 % NaCl 1,000 ML 150 ML IVCONT (22:39)
[2022-09-03] MEDS: Potassium Chloride/H20 10 MEQ/100 ML PIGGYBACK 100 MEQ IV (22:56)
--- NOTE | 2022-09-03 23:17 | PM.CCHP ---
History of Present Illness Date of Service: 09/03/22 Attending physician on admission: Natalie Soto Chief Complaint: Lethargic The patient is a 41-year-old male with a past medical history of type 1 diabetes mellitus, diabetic neuropathy and ETOH abuse? who presents to the emergency room? via EMS after family member? found him lethargic? at home.? Patient was noted to be severely lethargic, and weak when sister arrived at his house, he also reported no alcohol consumption in 4 days.? In the emergency room the patient? was obtunded,? hypotensive 76/44, respiratory rate 28 with? pulse rate 108.? ? When patient was more alert he was able to state that he had not taken insulin for 3 days Laboratory data was significant for? VB.02/14/161/4. ? Serum sodium 118, chloride 82, serum bicarb less than 5, BUN 24, creatinine 1.74, serum glucose 469,ammonia 100? ? ED course:? patient received? 3 L of normal saline, 14 units IV push insulin, and 4 bicarb, 2 g of Mag, ceftriaxone 1 g and ultimately placed on insulin drip. ?Patient will be admitted to the ICU for management of DKA Review of Systems Review of Systems: Constitutional:+ fatigue. No, fever, chills Eyes: No visual loss, blurred vision, double vision or yellow sclera ENT: No hearing loss, sneezing, congestion, runny nose or sore throat. Respiratory: No Dyspnea, cough, hemoptysis. Cardiovascular:No chest pain, palpitations, edema. Gastrointestinal:+ diffused abdominal discomfort, No nausea, vomiting or diarrhea. Genitourinary: No urinary frequency or incontinence. Neurologic: No headache, dizziness, syncope, unilateral weakness, ataxia, numbness or tingling in the extremities. No change in bowel or bladder control. Musculoskeletal: No muscle pain, back pain, joint pain or stiffness. Hematologic/Lymphatics: No bleeding or bruising. No painful lymph nodes. Skin: No rash or itching. . 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 Mother Diabetes Surgical History Surgical History No pertinent past surgical history Social History Social History Household Members: None Household Members Other:: with dog Housing: Apartment Do you presently have visiting nurse or other home services: No Alcohol intake: current Alcohol intake frequency: 3 or more drinks per day Patient Tobacco Use Status: Never used Tobacco Advance Directives: No Advance Directives Information Provided: Yes service: Yes Current occupational status: employed Meds Allergies Allergy/AdvReac Type Severity Reaction Status Date / Time clonazepam Allergy Unknown Unknown Verified 02/08/22 09:46 meropenem [MEROPENEM] Allergy Unknown SWELLING Verified 02/08/22 09:46 penicillin G procaine Allergy Unknown itching Verified 02/08/22 09:46 Penicillins [PENICILLINS] Allergy Unknown SWELLING Verified 02/08/22 09:46 lorazepam [From Ativan] Allergy Anaphylaxis Verified 02/08/22 09:46 Active Medications: Current Medications Enoxaparin Sodium (Enoxaparin Sodium 40 Mg/0.4 Ml Syringe) 40 mg SUBCUT Q24H MAINOR Insulin Human Regular (Myxredlin) 100 unit in 100 mls @ 6 mls/hr IVCONT .[id number] MAINOR; Protocol Last Admin: 09/03/22 20:12 Dose: 6 unit/hr, 6 mls/hr Sodium Bicarbonate 150 meq/ (Dextrose) 1,000 mls @ 100 mls/hr IV .Q10H MAINOR Dextrose/Sodium Chloride (D51/2ns) 1,000 mls @ 150 mls/hr IVCONT .[id number] [facility] Last Admin: 09/03/22 22:39 Dose: 150 mls/hr Potassium Chloride (Potassium Chloride/H20) 10 meq in 100 mls @ 100 mls/hr IV Q1H MAINOR Stop: 09/04/22 00:44 Last Admin: 09/03/22 22:56 Dose: 100 mls/hr Ondansetron HCl (Ondansetron Hcl 4 Mg/2 Ml Vial) 4 mg IVPUSH Q8H PRN PRN Reason: Nausea and Vomiting Home Medications Medication Instructions Recorded Confirmed Last Taken Type clonidine HCl 0.2 mg tablet 0.2 mg PO BID 11/11/20 06/12/22 Unknown History trazodone 100 mg tablet 200 mg PO BEDTIME 11/11/20 06/12/22 Unknown History lamotrigine 200 mg tablet 200 mg PO BID 01/28/22 06/12/22 Unknown History citalopram 40 mg tablet 40 mg PO DAILY 02/08/22 06/12/22 Unknown History folic acid 1 mg tablet 1 mg PO DAILY 02/08/22 06/12/22 Unknown History magnesium oxide 400 mg (241.3 mg 400 mg PO BID 02/08/22 06/12/22 Unknown History magnesium) tablet thiamine HCl (vitamin B1) 100 mg 100 mg PO DAILY 02/08/22 06/12/22 Unknown History tablet zolpidem 5 mg tablet 1 tab PO BEDTIME 03/14/22 06/12/22 Unknown History famotidine 20 mg tablet (Pepcid AC) 20 mg PO DAILY 05/21/22 06/12/22 Unknown History insulin aspart U-100 100 unit/mL 0 sliding scale dose subcut QIDACHS 06/12/22 06/12/22 Unknown History (3 mL) subcutaneous pen (Novolog FlexPen U-100 Insulin aspart) quetiapine 400 mg tablet 1 tab PO BEDTIME 06/12/22 06/12/22 Unknown History quetiapine 400 mg tablet,extended 1 tab PO QAM 06/12/22 06/12/22 Unknown History release 24 hr Physical Exam Vital Signs: Vital Signs: Last Vital Signs Pulse 98 09/03/22 22:25 Resp 16 09/03/22 22:25 BP 122/81 09/03/22 22:25 Pulse Ox 100 09/03/22 22:25 O2 Del Method 09/03/22 22:25 O2 Flow Rate 2 09/03/22 22:25 FiO2 100 09/03/22 18:49 BMI result Body Mass Index 16.9 ?General:? Alert oriented x3, slighly lethargic. Speech is well articulated, thought process is coherent.? Following all commands. ?HEENT:? Head is normocephalic, atraumatic, pupils equal round reactive to light accommodation bilaterally.? Extraocular movements appear intact.? Buccal mucosa is very dry, Neck is supple without lymphadenopathy. ?Cardiac:? Clear S1-S2, no murmurs rubs or gallops. ?Pulmonary:? Clear to auscultation, no wheezes, rales or rhonchi. ?Abdomen:? ?Abdomen soft, diffused abdominal tenderness, Normal bowel sounds. No pulsatile mass. ?Musculoskeletal:Moving all 4 extremities upon request a major joints, there is no crepitus or tenderness.? The strength is 5/5 bilaterally and throughout all 4 extremities.? Gait not assessed at this point. ?Neurologic:?No focal deficits noted.Motor strength as above.?? ?Skin:? Intact, no lesions, edema, erythema, clubbing or cyanosis.? No ulcers. Vascular:? 2+ pulses upper and lower extremities distally.? Results Labs 09/03/22 18:53 09/03/22 21:49 Labs: Laboratory Results - last 24 hr 09/03/22 09/03/22 09/03/22 18:38 18:52 18:53 MCV MCH MCHC RDW Plt Count MPV Immature Gran % (Auto) Neut % (Auto) Lymph % (Auto) Collier % (Auto) Eos % (Auto) Baso % (Auto) Lymph # (Auto) Collier # (Auto) Eos # (Auto) Baso # (Auto) Abs Immat Gran (auto) Absolute Neuts (auto) Absolute Nucleated RBC Nucleated RBC % (auto) PT INR VBG pH VBG pCO2 VBG pO2 VBG HCO3 VBG O2 Saturation VBG Base Excess Anion Gap Estim Creat Clear Calc Estimated GFR POC Glucose 509 H* Random Glucose Lactic Acid 2.6 H* Lactic Acid F/U @ 2Hr Calcium Magnesium Total Bilirubin AST ALT Alkaline Phosphatase Ammonia 100 H Troponin I High Sens Total Protein Albumin Lipase Urine Color Urine Appearance Urine pH Ur Specific [place] Urine Protein Urine Glucose (UA) Urine Ketones Urine Blood Urine Nitrite Ur Leukocyte Esterase Urine RBC Urine WBC Ur Squamous Epith Cells Urine Bacteria Hyaline Casts Urine Opiates Screen Urine Fentanyl Screen Ur Barbiturates Screen Ur Phencyclidine Scrn Ur Amphetamines Screen U Benzodiazepines Scrn Urine Cocaine Screen U Marijuana (THC) Screen Ethyl Alcohol Acetone, Qual COVID-19 (ALLEN) COVID-19 Clin Com 09/03/22 09/03/22 09/03/22 18:53 18:53 18:53 MCV 88.7 MCH 32.1 MCHC 36.2 H RDW 13.7 Plt Count 181 D MPV 10.0 Immature Gran % (Auto) 1.4 H Neut % (Auto) 83.9 H Lymph % (Auto) 5.9 L Collier % (Auto) 8.5 Eos % (Auto) 0.1 Baso % (Auto) 0.2 Lymph # (Auto) 0.6 L Collier # (Auto) 0.8 Eos # (Auto) 0.0 Baso # (Auto) 0.0 Abs Immat Gran (auto) 0.13 H Absolute Neuts (auto) 7.8 Absolute Nucleated RBC 0.030 H Nucleated RBC % (auto) 0.3 H PT 12.4 INR 1.1 VBG pH VBG pCO2 VBG pO2 VBG HCO3 VBG O2 Saturation VBG Base Excess Anion Gap TNP Estim Creat Clear Calc 40.8 Estimated GFR 43 POC Glucose Random Glucose 469 H* Lactic Acid Lactic Acid F/U @ 2Hr Calcium 7.6 L Magnesium 2.6 Total Bilirubin 0.8 AST 25 ALT 24 Alkaline Phosphatase 122 H Ammonia Troponin I High Sens Total Protein 6.7 Albumin 3.9 Lipase 4 L Urine Color Urine Appearance Urine pH Ur Specific [place] Urine Protein Urine Glucose (UA) Urine Ketones Urine Blood Urine Nitrite Ur Leukocyte Esterase Urine RBC Urine WBC Ur Squamous Epith Cells Urine Bacteria Hyaline Casts Urine Opiates Screen Urine Fentanyl Screen Ur Barbiturates Screen Ur Phencyclidine Scrn Ur Amphetamines Screen U Benzodiazepines Scrn Urine Cocaine Screen U Marijuana (THC) Screen Ethyl Alcohol Acetone, Qual Moderate H COVID-19 (ALLEN) COVID-19 Clin Com 09/03/22 09/03/22 09/03/22 18:53 18:53 18:58 MCV MCH MCHC RDW Plt Count MPV Immature Gran % (Auto) Neut % (Auto) Lymph % (Auto) Collier % (Auto) Eos % (Auto) Baso % (Auto) Lymph # (Auto) Collier # (Auto) Eos # (Auto) Baso # (Auto) Abs Immat Gran (auto) Absolute Neuts (auto) Absolute Nucleated RBC Nucleated RBC % (auto) PT INR VBG pH 7.02 L* VBG pCO2 14 VBG pO2 161 VBG HCO3 4 L VBG O2 Saturation 99.0 VBG Base Excess -24.8 Anion Gap Estim Creat Clear Calc Estimated GFR POC Glucose Random Glucose Lactic Acid Lactic Acid F/U @ 2Hr Calcium Magnesium Total Bilirubin AST ALT Alkaline Phosphatase Ammonia Troponin I High Sens < 3.5 Total Protein Albumin Lipase Urine Color Urine Appearance Urine pH Ur Specific [place] Urine Protein Urine Glucose (UA) Urine Ketones Urine Blood Urine Nitrite Ur Leukocyte Esterase Urine RBC Urine WBC Ur Squamous Epith Cells Urine Bacteria Hyaline Casts Urine Opiates Screen Urine Fentanyl Screen Ur Barbiturates Screen Ur Phencyclidine Scrn Ur Amphetamines Screen U Benzodiazepines Scrn Urine Cocaine Screen U Marijuana (THC) Screen Ethyl Alcohol < 10 Acetone, Qual COVID-19 (ALLEN) COVID-19 [employer] Com 09/03/22 09/03/22 09/03/22 20:34 20:35 20:35 MCV MCH MCHC RDW Plt Count MPV Immature Gran % (Auto) Neut % (Auto) Lymph % (Auto) Collier % (Auto) Eos % (Auto) Baso % (Auto) Lymph # (Auto) Collier # (Auto) Eos # (Auto) Baso # (Auto) Abs Immat Gran (auto) Absolute Neuts (auto) Absolute Nucleated RBC Nucleated RBC % (auto) PT INR VBG pH VBG pCO2 VBG pO2 VBG HCO3 VBG O2 Saturation VBG Base Excess Anion Gap Estim Creat Clear Calc Estimated GFR POC Glucose Random Glucose Lactic Acid Lactic Acid F/U @ 2Hr Calcium Magnesium Total Bilirubin AST ALT Alkaline Phosphatase Ammonia Troponin I High Sens Total Protein Albumin Lipase Urine Color Yellow Urine Appearance Clear Urine pH 5.5 Ur Specific [place] 1.020 Urine Protein 30 (1+) H Urine Glucose (UA) >=1000 H Urine Ketones >=160 Urine Blood Negative Urine Nitrite Negative Ur Leukocyte Esterase Negative Urine RBC 0-2 Urine WBC 0-5 Ur Squamous Epith Cells 0-2 Urine Bacteria None Seen Hyaline Casts 3-5 Urine Opiates Screen Not Detected Urine Fentanyl Screen POSITIVE H Ur Barbiturates Screen Not Detected Ur Phencyclidine Scrn Not Detected Ur Amphetamines Screen Not Detected U Benzodiazepines Scrn Not Detected Urine Cocaine Screen Not Detected U Marijuana (THC) Screen Not Detected Ethyl Alcohol Acetone, Qual COVID-19 (ALLEN) Negative COVID-19 [employer] Com See Note 09/03/22 09/03/22 09/03/22 21:25 21:49 21:49 MCV MCH MCHC RDW Plt Count MPV Immature Gran % (Auto) Neut % (Auto) Lymph % (Auto) Collier % (Auto) Eos % (Auto) Baso % (Auto) Lymph # (Auto) Collier # (Auto) Eos # (Auto) Baso # (Auto) Abs Immat Gran (auto) Absolute Neuts (auto) Absolute Nucleated RBC Nucleated RBC % (auto) PT INR VBG pH VBG pCO2 VBG pO2 VBG HCO3 VBG O2 Saturation VBG Base Excess Anion Gap 26 H Estim Creat Clear Calc 58.1 Estimated GFR > 60 POC Glucose 142 H Random Glucose 116 H Lactic Acid Lactic Acid F/U @ 2Hr 1.5 Calcium 7.0 L D Magnesium Total Bilirubin AST ALT Alkaline Phosphatase Ammonia Troponin I High Sens Total Protein Albumin Lipase Urine Color Urine Appearance Urine pH Ur Specific [place] Urine Protein Urine Glucose (UA) Urine Ketones Urine Blood Urine Nitrite Ur Leukocyte Esterase Urine RBC Urine WBC Ur Squamous Epith Cells Urine Bacteria Hyaline Casts Urine Opiates Screen Urine Fentanyl Screen Ur Barbiturates Screen Ur Phencyclidine Scrn Ur Amphetamines Screen U Benzodiazepines Scrn Urine Cocaine Screen U Marijuana (THC) Screen Ethyl Alcohol Acetone, Qual COVID-19 (ALLEN) COVID-19 [place] 09/03/22 09/03/22 22:02 22:25 MCV MCH MCHC RDW Plt Count MPV Immature Gran % (Auto) Neut % (Auto) Lymph % (Auto) Collier % (Auto) Eos % (Auto) Baso % (Auto) Lymph # (Auto) Collier # (Auto) Eos # (Auto) Baso # (Auto) Abs Immat Gran (auto) Absolute Neuts (auto) Absolute Nucleated RBC Nucleated RBC % (auto) PT INR VBG pH 7.21 L VBG pCO2 18 VBG pO2 120 VBG HCO3 7 L VBG O2 Saturation 98.0 VBG Base Excess -17.5 Anion Gap Estim Creat Clear Calc Estimated GFR POC Glucose 101 Random Glucose Lactic Acid Lactic Acid F/U @ 2Hr Calcium Magnesium Total Bilirubin AST ALT Alkaline Phosphatase Ammonia Troponin I High Sens Total Protein Albumin Lipase Urine Color Urine Appearance Urine pH Ur Specific [place] Urine Protein Urine Glucose (UA) Urine Ketones Urine Blood Urine Nitrite Ur Leukocyte Esterase Urine RBC Urine WBC Ur Squamous Epith Cells Urine Bacteria Hyaline Casts Urine Opiates Screen Urine Fentanyl Screen Ur Barbiturates Screen Ur Phencyclidine Scrn Ur Amphetamines Screen U Benzodiazepines Scrn Urine Cocaine Screen U Marijuana (THC) Screen Ethyl Alcohol Acetone, Qual COVID-19 (ALLEN) COVID-19 [employer] Com Imaging Radiologist's Impressions: Impressions Head CT 09/03/22 18:56 IMPRESSION: 1. No acute intracranial pathology. Chest X-Ray 09/03/22 19:03 IMPRESSION: No acute pulmonary process. Assessment and Plan (1) DKA (diabetic ketoacidosis): Qualifiers: Diabetes mellitus complication detail: without coma Diabetes mellitus type: type 1 Qualified Code(s): E10.10 - Type 1 diabetes mellitus with ketoacidosis without coma Status: Resolved (2) Type 1 diabetes: Status: Acute (3) SHEILA (acute kidney injury): Status: Acute (4) ETOH abuse: Status: Acute (5) Hyponatremia: Status: Acute (6) Hyperglycemia: Status: Acute (7) Dehydration: Status: Resolved Plan 41-year-old male with? type 1 diabetes mellitus with a history of noncompliance with insulin, now presents with diabetic ketoacidosis requiring admission into the ICU.?? Plan: Neuro:? no acute issues?? Cardiac:? ?Elevated lactic:? this is likely due to severe DKA,? no evidence of acute infection.? Pulmonary:? no acute issues?? Renal:? SHEILA- ? most likely related to hypoperfusion, nonoliguric.? Received x 3 L in ED. Will Continue IV fluid.? Continue to check renal induces and urine output GI:?? nausea from gastroparesis. ? Continue Zofran p.r.n.,? Endo:??? type 1 diabetes /diabetic ketoacidosis-? continue insulin drip until her gap is close. Follow DKA protocol? ID: ? no acute issues? Heme/Onc:? No acute issues. Psych:? No acute issues. Miscellaneous:? patient has history of alcohol abuse,? was admitted in June/2022? for alcohol withdrawal,? no history of seizure/? delirium.? Last? drink was 4 days ago.? No acute evidence of withdrawal.? Will continue to monitor? closely for possible initiation of alcohol withdrawal protocol.? Prophylaxis:? Lovenox? Diet: ? NPO? with sips of water ice chips Critical care time: does not qualify for critical care? CODE: FULL CODE? Time Spent With Patient Time: Total time managing care of this patient today ____ minutes. Critical Care Time 0
[2022-09-03 23:48] LABS: Phosphorus 2.2 mg/dL (2.7-4.5)
[2022-09-04] VITALS (22 sets, daily range): BP systolic 100–158; BP diastolic 65–104; PULSE 80–116; RESP 15–27; TEMP 36.3–37.3; O2SAT 98–100; BMI 22.1; BMI 22.0
[2022-09-04] MEDS: ondansetron HCL 4 MG/2 ML VIAL IVPUSH (00:21)
[2022-09-04] MEDS: Enoxaparin Sodium 40 MG/0.4 ML SYRINGE SUBCUT ×2 (00:23→21:57)
[2022-09-04] MEDS: Potassium Chloride/H20 10 MEQ/100 ML PIGGYBACK 100 MEQ IV (00:25)
[2022-09-04] MEDS: Potassium Chloride Packet 20 MEQ PACKET 40 MEQ PO (00:28)
[2022-09-04 00:53] LABS: Glucose, Whole Blood 143 mg/dL (60-115)
[2022-09-04 01:41] LABS: Glucose, Whole Blood 142 mg/dL (60-115)
[2022-09-04] MEDS: Calcium Gluconate/NaCl,Iso-Osm 2 GM/100 ML PLAST..BAG IV (01:59)
[2022-09-04 02:34] LABS: Glucose, Whole Blood 163 mg/dL (60-115)
[2022-09-04 02:46] LABS: Blood Urea Nitrogen 20 mg/dL (9-16); Calcium 7.2 mg/dL (8.4-10.2); Carbon Dioxide < 5 mmol/L (22-29); Chloride 101 mmol/L (96-108); Creatinine Clr Calc Pharmacy 79.5; Estimated Glomerular Filt Rate > 60; Glucose Random 149 mg/dL (60-115); Potassium 4.2 mmol/L (3.3-5.1); Sodium 131 mmol/L (135-145)
[2022-09-04] MEDS: PHENobarbitaL sodium 130 MG/ML IM ONCE 205 MG IM (03:12)
[2022-09-04] MEDS: Sodium Bicarbonate 8.4% 50 MEQ/50 ML SYRINGE IVPUSH (03:29)
[2022-09-04] MEDS: Potassium Phosphate/NS 15 MMOL/250 ML PLAST..BAG 62.5 MMOL IV ×3 (03:33→11:59)
[2022-09-04 03:39] LABS: Glucose, Whole Blood 95 mg/dL (60-115)
[2022-09-04] MEDS: Dextrose 50 % 25 GM/50 ML SYRINGE IVPUSH (03:40)
--- NOTE | 2022-09-04 04:03 | PC.NURSE ---
PT TO ICU AT 0000 A&OX3, FOLLOWING COMMANDS APPROPRIATELY AND ORTEGA. NO ACUTE DISTRESS NOTED. O2 SAT 100% ON 2L O2 AND O2 SHUT OFF. VITALS STABLE. MONITOR SHOWED ST, RATE 100-110, NO ECTOPY. D51/2 NS INFUSING AT 150 ML/HR. INSULIN DRIP OFF BUT RESTARTED AT 1 UNIT/HR AT 0040 FOR A POC OF 143. POC CHECKED HOURLY AND GTT REMAINED AT 1 UNIT/HR UNTIL 0330 WHEN POC DOWN TO 95. 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 INSULIN WAS DECREASED TO 0.5 UNITS/HR AND DEXTROSE 50% 1 AMP GIVEN. PT RECEIVED POTASSIUM REPLACEMENT ORDERED IV AND ONE DOSE PO. PT DENIES NAUSEA BUT C/O INDIGESTION. HE RECEIVED ZOFRAN. TAKING ICE CHIPS PO WITHOUT PROBLEM. SHIFT WENT ON, PT STARTED HAVING HALLUCINATIONS. HE SAW A RED CORD HANGING FROM THE WALL BUT NO RED CORD WAS THERE. HE SAID HE DROPPED THE PILLS BUT RECEIVED NO PILLS. HE STATED THERE WERE PEOPLE ON THE LEDGE OUTSIDE HIS ROOM BUT THERE WAS NOT. PROVIDER AFSHAN CANTU AND PT STARTED ON PHENOBARB PROTOCOL.
[2022-09-04 04:40] LABS: Glucose, Whole Blood 178 mg/dL (60-115)
[2022-09-04 05:04] LABS: VBG Base Excess -11.5 mmol/L; VBG HCO3 11 mmol/L (22-26); VBG pCO2 20 mmHg; VBG pH 7.36 (7.32-7.43); VBG pO2 66 mmHg
[2022-09-04 05:05] LABS: MANUAL DIFF FLAG NO
[2022-09-04 05:09] LABS: Basophils Percent Auto 0.1 % (0-2); Hematocrit 30.1 % (42.0-52.0); Hemoglobin 11.2 g/dl (14.0-18.0); Imm Gran Abs Auto 0.04 X10*3/uL (0.00-0.03); Imm Gran Pct Auto 0.6 % (0.0-0.4); Lymphocytes Absolute Auto 0.9 X10*3/uL (1.2-4.9); Lymphocytes Percent Auto 12.6 % (20-40); Mean Corpuscular HGB Conc 37.2 g/dl (31.0-36.0); Mean Corpuscular Hemoglobin 31.5 pg (27.0-33.0); Mean Corpuscular Volume 84.8 fL (80.0-98.0); Mean Platelet Volume 9.2 fL (9.4-12.4); Monocytes Absolute Auto 0.7 X10*3/uL (0.1-1.2); Monocytes Percent Auto 9.1 % (2-11); Neutrophils Absolute Auto 5.6 x10*3/uL (2.0-8.3); Neutrophils Percent Auto 77.6 % (45-73); Platelet Count 139 X10*3/uL (160-400); Red Blood Count 3.55 X10*6/uL (4.60-5.80); Red Cell Distribution Width 13.7 % (11.0-16.0); White Blood Count 7.2 X10*3/uL (4.8-10.8)
[2022-09-04 05:12] LABS: Venous Blood Gas Refer to POC result
[2022-09-04 05:19] LABS: Ammonia 31 umol/L (13-55)
[2022-09-04] MEDS: Dextrose 5 % and 0.45 % NaCl 1,000 ML 150 ML IVCONT (05:25)
[2022-09-04 05:31] LABS: Alanine Aminotransferase 20 U/L (0-40); Albumin Level 3.5 g/dL (3.5-5.0); Alkaline Phosphatase 96 U/L (39-117); Anion Gap 23 (12-20); Aspartate Amino Transferase 21 U/L (5-37); Bilirubin Total 0.9 mg/dL (0.0-1.0); Blood Urea Nitrogen 17 mg/dL (9-16); Calcium 7.9 mg/dL (8.4-10.2); Carbon Dioxide 12 mmol/L (22-29); Chloride 102 mmol/L (96-108); Creatinine Clr Calc Pharmacy 79.5; Estimated Glomerular Filt Rate > 60; Glucose Random 168 mg/dL (60-115); Magnesium 2.4 mg/dL (1.6-2.6); Phosphorus 0.8 mg/dL (2.7-4.5); Potassium 3.8 mmol/L (3.3-5.1); Sodium 133 mmol/L (135-145); Total Protein 5.8 g/dL (6.5-8.0)
[2022-09-04 05:36] LABS: Glucose, Whole Blood 181 mg/dL (60-115)
[2022-09-04] MEDS: PHENobarbitaL sodium 130 MG/ML VIAL IM Q3Hx2 155 MG IM ×2 (05:46→08:44)
[2022-09-04 06:33] LABS: Glucose, Whole Blood 173 mg/dL (60-115)
[2022-09-04 07:26] LABS: Glucose, Whole Blood 130 mg/dL (60-115)
--- NOTE | 2022-09-04 08:41 | PHA.MEDREC ---
Pharmacy Consult ? Medication Reconciliation Pharmacy has completed the medication reconciliation.
[2022-09-04 08:44] LABS: Glucose, Whole Blood 184 mg/dL (60-115)
[2022-09-04] MEDS: Dextrose 5 % and Lactated Ring 1,000 ML 150 ML IVCONT (08:45)
[2022-09-04 09:58] LABS: Glucose, Whole Blood 195 mg/dL (60-115)
--- NOTE | 2022-09-04 10:09 | MHC.CM.PN ---
Met with pt to discuss d/c planning needs: Pt resides with his dogs, has no services, uses his [employer] or [employer] for transportation and has a working glucometer and access to DM supplies. Pt states his mother and sister are caring for the dogs. Pt states his PCP is Beena Johnston and has had 2 COVID vax no booster. Pt may benefit from CARE team consult for + ETOH use. D/C plan is for a return to home with outpt f/u: Pt has cell and can call for [employer] or family to transport to home.
[2022-09-04 10:32] LABS: Anion Gap 17 (12-20); Blood Urea Nitrogen 14 mg/dL (9-16); Calcium 7.5 mg/dL (8.4-10.2); Carbon Dioxide 17 mmol/L (22-29); Chloride 99 mmol/L (96-108); Creatinine Clr Calc Pharmacy 98.8; Estimated Glomerular Filt Rate > 60; Glucose Random 199 mg/dL (60-115); Potassium 3.6 mmol/L (3.3-5.1); Sodium 129 mmol/L (135-145)
[2022-09-04 10:56] LABS: Glucose, Whole Blood 230 mg/dL (60-115)
--- NOTE | 2022-09-04 11:22 | P.PNCC_ITS ---
Subjective Subjective Date of Service: 09/04/22 Interval History: 41-year-old gentleman with underlying history of type 1 diabetes mellitus with neuropathy, alcohol abuse,?bipolar disease with psychotic features admitted on 09/03/2022 with metabolic encephalopathy secondary to diabetic ketoacidosis on the background of alcohol withdrawal. Patient was started on IV fluids, phenobarbital protocol, and insulin drip and admitted to the intensive care unit. No events overnight. Being titrated off insulin drip. Critical Care Time (minutes): 0 Physical Exam Vital Signs: Vital Signs: Last Vital Signs Temp 99.2 F 09/04/22 08:00 Pulse 103 H 09/04/22 10:00 Resp 18 09/04/22 10:00 BP 134/80 09/04/22 10:00 Pulse Ox 99 09/04/22 10:00 O2 Del Method 09/04/22 10:00 O2 Flow Rate 2 09/04/22 06:57 FiO2 100 09/03/22 18:49 BMI result Body Mass Index 22.0 Const: General: no acute distress, alert and awake Eyes: Sclerae: sclerae normal EOM: EOMs intact bilaterally Neck: Neck: Yes no lymphadenopathy, Yes trachea midline and Yes supple Resp: Effort & Inspection: normal respiratory effort and no respiratory distress Auscultation: clear to auscultation bilaterally Cardio: Rate: tachycardic Rhythm: regular rhythm Heart sounds: no gallops, no murmurs and no rubs GI: Palpation (GI): Soft to palpation and Other GI palpation findings present ( Nontender) Auscultation: normal bowel sounds Extrem: General: Yes no pedal edema, No clubbing and No cyanosis Objective Data Labs 09/04/22 04:53 09/04/22 10:04 Labs: Laboratory Results - last 24 hr 09/03/22 09/03/22 09/03/22 18:38 18:52 18:53 WBC RBC Hgb Hct MCV MCH MCHC RDW Plt Count MPV Immature Gran % (Auto) Neut % (Auto) Lymph % (Auto) Edgar % (Auto) Eos % (Auto) Baso % (Auto) Lymph # (Auto) Edgar # (Auto) Eos # (Auto) Baso # (Auto) Abs Immat Gran (auto) Absolute Neuts (auto) Absolute Nucleated RBC Nucleated RBC % (auto) PT INR VBG pH VBG pCO2 VBG pO2 VBG HCO3 VBG O2 Saturation VBG Base Excess Sodium Potassium Chloride Carbon Dioxide Anion Gap BUN Creatinine Estim Creat Clear Calc Estimated GFR POC Glucose 509 H* Random Glucose Lactic Acid 2.6 H* Lactic Acid F/U @ 2Hr Calcium Phosphorus Magnesium Total Bilirubin AST ALT Alkaline Phosphatase Ammonia 100 H Troponin I High Sens Total Protein Albumin Lipase Urine Color Urine Appearance Urine pH Ur Specific [place] Urine Protein Urine Glucose (UA) Urine Ketones Urine Blood Urine Nitrite Ur Leukocyte Esterase Urine RBC Urine WBC Ur Squamous Epith Cells Urine Bacteria Hyaline Casts Urine Opiates Screen Urine Fentanyl Screen Ur Barbiturates Screen Ur Phencyclidine Scrn Ur Amphetamines Screen U Benzodiazepines Scrn Urine Cocaine Screen U Marijuana (THC) Screen Ethyl Alcohol Acetone, Qual COVID-19 ([facility]) COVID-19 Clin Com 09/03/22 09/03/22 09/03/22 18:53 18:53 18:53 WBC 9.3 RBC 3.99 L D Hgb 12.8 L D Hct 35.4 L D MCV 88.7 MCH 32.1 MCHC 36.2 H RDW 13.7 Plt Count 181 D MPV 10.0 Immature Gran % (Auto) 1.4 H Neut % (Auto) 83.9 H Lymph % (Auto) 5.9 L Edgar % (Auto) 8.5 Eos % (Auto) 0.1 Baso % (Auto) 0.2 Lymph # (Auto) 0.6 L Edgar # (Auto) 0.8 Eos # (Auto) 0.0 Baso # (Auto) 0.0 Abs Immat Gran (auto) 0.13 H Absolute Neuts (auto) 7.8 Absolute Nucleated RBC 0.030 H Nucleated RBC % (auto) 0.3 H PT 12.4 INR 1.1 VBG pH VBG pCO2 VBG pO2 VBG HCO3 VBG O2 Saturation VBG Base Excess Sodium 118 L* Potassium 4.1 Chloride 82 L D Carbon Dioxide < 5 L* D Anion Gap TNP BUN 24 H Creatinine 1.74 H Estim Creat Clear Calc 40.8 Estimated GFR 43 POC Glucose Random Glucose 469 H* Lactic Acid Lactic Acid F/U @ 2Hr Calcium 7.6 L Phosphorus Magnesium 2.6 Total Bilirubin 0.8 AST 25 ALT 24 Alkaline Phosphatase 122 H Ammonia Troponin I High Sens Total Protein 6.7 Albumin 3.9 Lipase 4 L Urine Color Urine Appearance Urine pH Ur Specific [place] Urine Protein Urine Glucose (UA) Urine Ketones Urine Blood Urine Nitrite Ur Leukocyte Esterase Urine RBC Urine WBC Ur Squamous Epith Cells Urine Bacteria Hyaline Casts Urine Opiates Screen Urine Fentanyl Screen Ur Barbiturates Screen Ur Phencyclidine Scrn Ur Amphetamines Screen U Benzodiazepines Scrn Urine Cocaine Screen U Marijuana (THC) Screen Ethyl Alcohol Acetone, Qual Moderate H COVID-19 ([facility]) COVID-19 [place] 09/03/22 09/03/22 09/03/22 18:53 18:53 18:58 WBC RBC Hgb Hct MCV MCH MCHC RDW Plt Count MPV Immature Gran % (Auto) Neut % (Auto) Lymph % (Auto) Edgar % (Auto) Eos % (Auto) Baso % (Auto) Lymph # (Auto) Edgar # (Auto) Eos # (Auto) Baso # (Auto) Abs Immat Gran (auto) Absolute Neuts (auto) Absolute Nucleated RBC Nucleated RBC % (auto) PT INR VBG pH 7.02 L* VBG pCO2 14 VBG pO2 161 VBG HCO3 4 L VBG O2 Saturation 99.0 VBG Base Excess -24.8 Sodium Potassium Chloride Carbon Dioxide Anion Gap BUN Creatinine Estim Creat Clear Calc Estimated GFR POC Glucose Random Glucose Lactic Acid Lactic Acid F/U @ 2Hr Calcium Phosphorus Magnesium Total Bilirubin AST ALT Alkaline Phosphatase Ammonia Troponin I High Sens < 3.5 Total Protein Albumin Lipase Urine Color Urine Appearance Urine pH Ur Specific [place] Urine Protein Urine Glucose (UA) Urine Ketones Urine Blood Urine Nitrite Ur Leukocyte Esterase Urine RBC Urine WBC Ur Squamous Epith Cells Urine Bacteria Hyaline Casts Urine Opiates Screen Urine Fentanyl Screen Ur Barbiturates Screen Ur Phencyclidine Scrn Ur Amphetamines Screen U Benzodiazepines Scrn Urine Cocaine Screen U Marijuana (THC) Screen Ethyl Alcohol < 10 Acetone, Qual COVID-19 ([facility]EN) COVID-19 Clin Com 09/03/22 09/03/22 09/03/22 20:34 20:35 20:35 WBC RBC Hgb Hct MCV MCH MCHC RDW Plt Count MPV Immature Gran % (Auto) Neut % (Auto) Lymph % (Auto) Edgar % (Auto) Eos % (Auto) Baso % (Auto) Lymph # (Auto) Edgar # (Auto) Eos # (Auto) Baso # (Auto) Abs Immat Gran (auto) Absolute Neuts (auto) Absolute Nucleated RBC Nucleated RBC % (auto) PT INR VBG pH VBG pCO2 VBG pO2 VBG HCO3 VBG O2 Saturation VBG Base Excess Sodium Potassium Chloride Carbon Dioxide Anion Gap BUN Creatinine Estim Creat Clear Calc Estimated GFR POC Glucose Random Glucose Lactic Acid Lactic Acid F/U @ 2Hr Calcium Phosphorus Magnesium Total Bilirubin AST ALT Alkaline Phosphatase Ammonia Troponin I High Sens Total Protein Albumin Lipase Urine Color Yellow Urine Appearance Clear Urine pH 5.5 Ur Specific [place] 1.020 Urine Protein 30 (1+) H Urine Glucose (UA) >=1000 H Urine Ketones >=160 Urine Blood Negative Urine Nitrite Negative Ur Leukocyte Esterase Negative Urine RBC 0-2 Urine WBC 0-5 Ur Squamous Epith Cells 0-2 Urine Bacteria None Seen Hyaline Casts 3-5 Urine Opiates Screen Not Detected Urine Fentanyl Screen POSITIVE H Ur Barbiturates Screen Not Detected Ur Phencyclidine Scrn Not Detected Ur Amphetamines Screen Not Detected U Benzodiazepines Scrn Not Detected Urine Cocaine Screen Not Detected U Marijuana (THC) Screen Not Detected Ethyl Alcohol Acetone, Qual COVID-19 ([facility]) Negative COVID-19 Clin Com See Note 09/03/22 09/03/22 09/03/22 21:25 21:49 21:49 WBC RBC Hgb Hct MCV MCH MCHC RDW Plt Count MPV Immature Gran % (Auto) Neut % (Auto) Lymph % (Auto) Edgar % (Auto) Eos % (Auto) Baso % (Auto) Lymph # (Auto) Edgar # (Auto) Eos # (Auto) Baso # (Auto) Abs Immat Gran (auto) Absolute Neuts (auto) Absolute Nucleated RBC Nucleated RBC % (auto) PT INR VBG pH VBG pCO2 VBG pO2 VBG HCO3 VBG O2 Saturation VBG Base Excess Sodium 129 L Potassium 3.3 Chloride 100 D Carbon Dioxide 6 L* D Anion Gap 26 H BUN 22 H Creatinine 1.22 Estim Creat Clear Calc 58.1 Estimated GFR > 60 POC Glucose 142 H Random Glucose 116 H Lactic Acid Lactic Acid F/U @ 2Hr 1.5 Calcium 7.0 L D Phosphorus 2.2 L Magnesium Total Bilirubin AST ALT Alkaline Phosphatase Ammonia Troponin I High Sens Total Protein Albumin Lipase Urine Color Urine Appearance Urine pH Ur Specific [place] Urine Protein Urine Glucose (UA) Urine Ketones Urine Blood Urine Nitrite Ur Leukocyte Esterase Urine RBC Urine WBC Ur Squamous Epith Cells Urine Bacteria Hyaline Casts Urine Opiates Screen Urine Fentanyl Screen Ur Barbiturates Screen Ur Phencyclidine Scrn Ur Amphetamines Screen U Benzodiazepines Scrn Urine Cocaine Screen U Marijuana (THC) Screen Ethyl Alcohol Acetone, Qual COVID-19 ([facility]EN) COVID-19 [place] 09/03/22 09/03/22 09/04/22 22:02 22:25 00:35 WBC RBC Hgb Hct MCV MCH MCHC RDW Plt Count MPV Immature Gran % (Auto) Neut % (Auto) Lymph % (Auto) Edgar % (Auto) Eos % (Auto) Baso % (Auto) Lymph # (Auto) Edgar # (Auto) Eos # (Auto) Baso # (Auto) Abs Immat Gran (auto) Absolute Neuts (auto) Absolute Nucleated RBC Nucleated RBC % (auto) PT INR VBG pH 7.21 L VBG pCO2 18 VBG pO2 120 VBG HCO3 7 L VBG O2 Saturation 98.0 VBG Base Excess -17.5 Sodium Potassium Chloride Carbon Dioxide Anion Gap BUN Creatinine Estim Creat Clear Calc Estimated GFR POC Glucose 101 143 H Random Glucose Lactic Acid Lactic Acid F/U @ 2Hr Calcium Phosphorus Magnesium Total Bilirubin AST ALT Alkaline Phosphatase Ammonia Troponin I High Sens Total Protein Albumin Lipase Urine Color Urine Appearance Urine pH Ur Specific [place] Urine Protein Urine Glucose (UA) Urine Ketones Urine Blood Urine Nitrite Ur Leukocyte Esterase Urine RBC Urine WBC Ur Squamous Epith Cells Urine Bacteria Hyaline Casts Urine Opiates Screen Urine Fentanyl Screen Ur Barbiturates Screen Ur Phencyclidine Scrn Ur Amphetamines Screen U Benzodiazepines Scrn Urine Cocaine Screen U Marijuana (THC) Screen Ethyl Alcohol Acetone, Qual COVID-19 ([facility]EN) COVID-19 [place] 09/04/22 09/04/22 09/04/22 01:36 01:58 02:31 WBC RBC Hgb Hct MCV MCH MCHC RDW Plt Count MPV Immature Gran % (Auto) Neut % (Auto) Lymph % (Auto) Edgar % (Auto) Eos % (Auto) Baso % (Auto) Lymph # (Auto) Edgar # (Auto) Eos # (Auto) Baso # (Auto) Abs Immat Gran (auto) Absolute Neuts (auto) Absolute Nucleated RBC Nucleated RBC % (auto) PT INR VBG pH VBG pCO2 VBG pO2 VBG HCO3 VBG O2 Saturation VBG Base Excess Sodium 131 L Potassium 4.2 D Chloride 101 Carbon Dioxide < 5 L* Anion Gap Not Reportable BUN 20 H Creatinine 1.10 Estim Creat Clear Calc 79.5 Estimated GFR > 60 POC Glucose 142 H 163 H Random Glucose 149 H Lactic Acid Lactic Acid F/U @ 2Hr Calcium 7.2 L Phosphorus Magnesium Total Bilirubin AST ALT Alkaline Phosphatase Ammonia Troponin I High Sens Total Protein Albumin Lipase Urine Color Urine Appearance Urine pH Ur Specific [place] Urine Protein Urine Glucose (UA) Urine Ketones Urine Blood Urine Nitrite Ur Leukocyte Esterase Urine RBC Urine WBC Ur Squamous Epith Cells Urine Bacteria Hyaline Casts Urine Opiates Screen Urine Fentanyl Screen Ur Barbiturates Screen Ur Phencyclidine Scrn Ur Amphetamines Screen U Benzodiazepines Scrn Urine Cocaine Screen U Marijuana (THC) Screen Ethyl Alcohol Acetone, Qual COVID-19 ([facility]EN) COVID-19 [place] 09/04/22 09/04/22 09/04/22 03:36 04:36 04:53 WBC 7.2 RBC 3.55 L Hgb 11.2 L Hct 30.1 L MCV 84.8 MCH 31.5 MCHC 37.2 H RDW 13.7 Plt Count 139 L MPV 9.2 L Immature Gran % (Auto) 0.6 H Neut % (Auto) 77.6 H Lymph % (Auto) 12.6 L Edgar % (Auto) 9.1 Eos % (Auto) 0.0 Baso % (Auto) 0.1 Lymph # (Auto) 0.9 L Edgar # (Auto) 0.7 Eos # (Auto) 0.0 Baso # (Auto) 0.0 Abs Immat Gran (auto) 0.04 H Absolute Neuts (auto) 5.6 Absolute Nucleated RBC 0.000 Nucleated RBC % (auto) 0.0 PT INR VBG pH VBG pCO2 VBG pO2 VBG HCO3 VBG O2 Saturation VBG Base Excess Sodium Potassium Chloride Carbon Dioxide Anion Gap BUN Creatinine Estim Creat Clear Calc Estimated GFR POC Glucose 95 178 H Random Glucose Lactic Acid Lactic Acid F/U @ 2Hr Calcium Phosphorus Magnesium Total Bilirubin AST ALT Alkaline Phosphatase Ammonia Troponin I High Sens Total Protein Albumin Lipase Urine Color Urine Appearance Urine pH Ur Specific [place] Urine Protein Urine Glucose (UA) Urine Ketones Urine Blood Urine Nitrite Ur Leukocyte Esterase Urine RBC Urine WBC Ur Squamous Epith Cells Urine Bacteria Hyaline Casts Urine Opiates Screen Urine Fentanyl Screen Ur Barbiturates Screen Ur Phencyclidine Scrn Ur Amphetamines Screen U Benzodiazepines Scrn Urine Cocaine Screen U Marijuana (THC) Screen Ethyl Alcohol Acetone, Qual COVID-19 (ALLEN) COVID-19 [place] 09/04/22 09/04/22 09/04/22 04:53 04:54 04:57 WBC RBC Hgb Hct MCV MCH MCHC RDW Plt Count MPV Immature Gran % (Auto) Neut % (Auto) Lymph % (Auto) Edgar % (Auto) Eos % (Auto) Baso % (Auto) Lymph # (Auto) Edgar # (Auto) Eos # (Auto) Baso # (Auto) Abs Immat Gran (auto) Absolute Neuts (auto) Absolute Nucleated RBC Nucleated RBC % (auto) PT INR VBG pH 7.36 VBG pCO2 20 VBG pO2 66 VBG HCO3 11 L VBG O2 Saturation 94.0 VBG Base Excess -11.5 Sodium 133 L Potassium 3.8 Chloride 102 Carbon Dioxide 12 L Anion Gap 23 H BUN 17 H Creatinine 1.10 Estim Creat Clear Calc 79.5 Estimated GFR > 60 POC Glucose Random Glucose 168 H Lactic Acid Lactic Acid F/U @ 2Hr Calcium 7.9 L D Phosphorus 0.8 L* Magnesium 2.4 Total Bilirubin 0.9 AST 21 ALT 20 Alkaline Phosphatase 96 Ammonia 31 Troponin I High Sens Total Protein 5.8 L Albumin 3.5 Lipase Urine Color Urine Appearance Urine pH Ur Specific [place] Urine Protein Urine Glucose (UA) Urine Ketones Urine Blood Urine Nitrite Ur Leukocyte Esterase Urine RBC Urine WBC Ur Squamous Epith Cells Urine Bacteria Hyaline Casts Urine Opiates Screen Urine Fentanyl Screen Ur Barbiturates Screen Ur Phencyclidine Scrn Ur Amphetamines Screen U Benzodiazepines Scrn Urine Cocaine Screen U Marijuana (THC) Screen Ethyl Alcohol Acetone, Qual COVID-19 (ALLEN) COVID-19 [place] 09/04/22 09/04/22 09/04/22 05:32 06:27 07:23 WBC RBC Hgb Hct MCV MCH MCHC RDW Plt Count MPV Immature Gran % (Auto) Neut % (Auto) Lymph % (Auto) Edgar % (Auto) Eos % (Auto) Baso % (Auto) Lymph # (Auto) Edgar # (Auto) Eos # (Auto) Baso # (Auto) Abs Immat Gran (auto) Absolute Neuts (auto) Absolute Nucleated RBC Nucleated RBC % (auto) PT INR VBG pH VBG pCO2 VBG pO2 VBG HCO3 VBG O2 Saturation VBG Base Excess Sodium Potassium Chloride Carbon Dioxide Anion Gap BUN Creatinine Estim Creat Clear Calc Estimated GFR POC Glucose 181 H 173 H 130 H Random Glucose Lactic Acid Lactic Acid F/U @ 2Hr Calcium Phosphorus Magnesium Total Bilirubin AST ALT Alkaline Phosphatase Ammonia Troponin I High Sens Total Protein Albumin Lipase Urine Color Urine Appearance Urine pH Ur Specific [place] Urine Protein Urine Glucose (UA) Urine Ketones Urine Blood Urine Nitrite Ur Leukocyte Esterase Urine RBC Urine WBC Ur Squamous Epith Cells Urine Bacteria Hyaline Casts Urine Opiates Screen Urine Fentanyl Screen Ur Barbiturates Screen Ur Phencyclidine Scrn Ur Amphetamines Screen U Benzodiazepines Scrn Urine Cocaine Screen U Marijuana (THC) Screen Ethyl Alcohol Acetone, Qual COVID-19 (ALLEN) COVID-[facility] 09/04/22 09/04/22 09/04/22 08:41 09:56 10:04 WBC RBC Hgb Hct MCV MCH MCHC RDW Plt Count MPV Immature Gran % (Auto) Neut % (Auto) Lymph % (Auto) Edgar % (Auto) Eos % (Auto) Baso % (Auto) Lymph # (Auto) Edgar # (Auto) Eos # (Auto) Baso # (Auto) Abs Immat Gran (auto) Absolute Neuts (auto) Absolute Nucleated RBC Nucleated RBC % (auto) PT INR VBG pH VBG pCO2 VBG pO2 VBG HCO3 VBG O2 Saturation VBG Base Excess Sodium 129 L Potassium 3.6 Chloride 99 Carbon Dioxide 17 L Anion Gap 17 BUN 14 Creatinine 0.88 Estim Creat Clear Calc 98.8 Estimated GFR > 60 POC Glucose 184 H 195 H Random Glucose 199 H Lactic Acid Lactic Acid F/U @ 2Hr Calcium 7.5 L Phosphorus Magnesium Total Bilirubin AST ALT Alkaline Phosphatase Ammonia Troponin I High Sens Total Protein Albumin Lipase Urine Color Urine Appearance Urine pH Ur Specific [place] Urine Protein Urine Glucose (UA) Urine Ketones Urine Blood Urine Nitrite Ur Leukocyte Esterase Urine RBC Urine WBC Ur Squamous Epith Cells Urine Bacteria Hyaline Casts Urine Opiates Screen Urine Fentanyl Screen Ur Barbiturates Screen Ur Phencyclidine Scrn Ur Amphetamines Screen U Benzodiazepines Scrn Urine Cocaine Screen U Marijuana (THC) Screen Ethyl Alcohol Acetone, Qual COVID-19 ([facility]EN) COVID-19 [place] 09/04/22 10:51 WBC RBC Hgb Hct MCV MCH MCHC RDW Plt Count MPV Immature Gran % (Auto) Neut % (Auto) Lymph % (Auto) Edgar % (Auto) Eos % (Auto) Baso % (Auto) Lymph # (Auto) Edgar # (Auto) Eos # (Auto) Baso # (Auto) Abs Immat Gran (auto) Absolute Neuts (auto) Absolute Nucleated RBC Nucleated RBC % (auto) PT INR VBG pH VBG pCO2 VBG pO2 VBG HCO3 VBG O2 Saturation VBG Base Excess Sodium Potassium Chloride Carbon Dioxide Anion Gap BUN Creatinine Estim Creat Clear Calc Estimated GFR POC Glucose 230 H Random Glucose Lactic Acid Lactic Acid F/U @ 2Hr Calcium Phosphorus Magnesium Total Bilirubin AST ALT Alkaline Phosphatase Ammonia Troponin I High Sens Total Protein Albumin Lipase Urine Color Urine Appearance Urine pH Ur Specific [place] Urine Protein Urine Glucose (UA) Urine Ketones Urine Blood Urine Nitrite Ur Leukocyte Esterase Urine RBC Urine WBC Ur Squamous Epith Cells Urine Bacteria Hyaline Casts Urine Opiates Screen Urine Fentanyl Screen Ur Barbiturates Screen Ur Phencyclidine Scrn Ur Amphetamines Screen U Benzodiazepines Scrn Urine Cocaine Screen U Marijuana (THC) Screen Ethyl Alcohol Acetone, Qual COVID-19 ([facility]) COVID-19 Clin Com Progress Note: A&P Assessment and plan (1) Type 1 diabetes: Status: Acute (2) SHEILA (acute kidney injury): Status: Acute (3) ETOH abuse: Status: Acute (4) Diabetic coma with ketoacidosis: Status: Acute (5) Alcohol withdrawal: Status: Acute (6) Bipolar disorder: Status: Acute Plan Assessment: 41-year-old gentleman with underlying type 1 diabetes mellitus, alcohol dependence, and bipolar disorder admitted with a combination of diabetic and alcoholic ketoacidosis requiring insulin drip and phenobarbital protocol. Plan: Neuro: Metabolic encephalopathy, resolved. Cardiac: No acute issues. Pulmonary: No acute issues. Renal: Acute kidney injury secondary to ketoacidosis, resolved. Continue to monitor renal indices and urine output. Pseudohyponatremia secondary to hyperglycemia, improved. Endo: Diabetic ketoacidosis requiring insulin drip. Now being titrated to subcutaneous insulin. GI: No acute issues. ID: No acute issues Heme/Onc: No acute issues. Psych: Underlying bipolar with possible psychotic features. Restarted on Lamictal. Miscellaneous: No acute issues. Prophylaxis: Heparin Diet: Diabetic Quality Stroke Does the patient have a stroke diagnosis?: No VTE Prior VTE?: No VTE Risk Level:: Medical - low VTE Device Contraindication: N/A - Device Ordered VTE Drug Contraindication: N/A - Med Ordered
--- NOTE | 2022-09-04 11:32 | MHC.CLN ---
RE: CONSULT SEE FULL CLINICAL NUTRITION ASSESSMENT
[2022-09-04 11:45] LABS: Glucose, Whole Blood 229 mg/dL (60-115)
[2022-09-04] MEDS: Insulin Lispro 100 UNIT/ML 3 ML VIAL SUBCUT (11:58)
[2022-09-04] MEDS: Insulin Glargine,Hum.rec.anlog 100 UNIT/ML 10 ML VIAL 50 UNIT SUBCUT (11:58)
[2022-09-04] MEDS: lamoTRIgine 100 MG TABLET 200 MG PO ×2 (11:59→21:57)
--- NOTE | 2022-09-04 12:22 | P.CDIC_ITS ---
CDI Concurrent Query Documentation Clarification: PHYSICIAN'S DOCUMENTATION REQUEST Date of Query: 09/04/22 1222 Patient Name: Yeison Pereyra Admit Date: 09/03/22 Dear Doctor, A review of the medical record indicates additional documentation may be needed. Please review below and update the documentation accordingly. Clinical Indicators: Risk Factors/Clinical Indicators/Treatments Underlying type 1 diabetes mellitus with neuropathy. Please clarify the following regarding Diabetes Mellitus with Neuropathy: Type/Etiology: * Type I DM with neuropathy Specifics to neuropathy: Peripheral Polyneuropathy Autonomic (poly)neuropathy Mononeuropathy * Other * Unable to determine Use of terms such as suspected, likely, concern for, or probable (associated with a specific diagnosis that is being evaluated, monitored, or treated as if it exists) are acceptable and can be coded in the inpatient setting, when documented at the time of discharge. Thank you, Breanna Araya [facility], CDIS Extension: [phone] Please use your independent medical judgment in providing your response. THIS QUERY IS PART OF THE PERMANENT MEDICAL RECORD Provider Response: Other (peripheral) Other Diagnosis: peripheral
[2022-09-04 16:27] LABS: Glucose, Whole Blood 99 mg/dL (60-115)
[2022-09-04 17:28] LABS: Anion Gap 13 (12-20); Blood Urea Nitrogen 10 mg/dL (9-16); Calcium 7.3 mg/dL (8.4-10.2); Carbon Dioxide 19 mmol/L (22-29); Chloride 98 mmol/L (96-108); Creatinine Clr Calc Pharmacy 104.7; Estimated Glomerular Filt Rate > 60; Glucose Random 126 mg/dL (60-115); Potassium 3.2 mmol/L (3.3-5.1); Sodium 127 mmol/L (135-145)
[2022-09-04] MEDS: Potassium Chloride Packet 20 MEQ PACKET 60 MEQ PO (18:14)
[2022-09-04 21:37] LABS: Glucose, Whole Blood 75 mg/dL (60-115)
[2022-09-04] MEDS: PHENobarbitaL 15 MG TABLET 45 MG PO (21:57)
[2022-09-05 02:57] VITALS: BP 135/80; PULSE 83; RESP 20; TEMP 37.1; O2SAT 99
[2022-09-05 05:44] VITALS: BMI 22.9
[2022-09-05 06:09] LABS: MANUAL DIFF FLAG NO
[2022-09-05 06:27] LABS: Basophils Percent Auto 0.2 % (0-2); Eosinophils Percent Auto 0.2 % (0-4); Hematocrit 33.1 % (42.0-52.0); Hemoglobin 12.2 g/dl (14.0-18.0); Imm Gran Abs Auto 0.02 X10*3/uL (0.00-0.03); Imm Gran Pct Auto 0.5 % (0.0-0.4); Lymphocytes Absolute Auto 1.5 X10*3/uL (1.2-4.9); Lymphocytes Percent Auto 33.9 % (20-40); Mean Corpuscular HGB Conc 36.9 g/dl (31.0-36.0); Mean Corpuscular Hemoglobin 31.2 pg (27.0-33.0); Mean Corpuscular Volume 84.7 fL (80.0-98.0); Mean Platelet Volume 9.8 fL (9.4-12.4); Monocytes Absolute Auto 0.4 X10*3/uL (0.1-1.2); Monocytes Percent Auto 10.3 % (2-11); Neutrophils Absolute Auto 2.4 x10*3/uL (2.0-8.3); Neutrophils Percent Auto 54.9 % (45-73); Platelet Count 140 X10*3/uL (160-400); Red Blood Count 3.91 X10*6/uL (4.60-5.80); Red Cell Distribution Width 14.1 % (11.0-16.0); White Blood Count 4.3 X10*3/uL (4.8-10.8)
[2022-09-05 06:37] LABS: Albumin Level 3.5 g/dL (3.5-5.0); Anion Gap 16 (12-20); Blood Urea Nitrogen 6 mg/dL (9-16); Calcium 8.3 mg/dL (8.4-10.2); Carbon Dioxide 23 mmol/L (22-29); Chloride 94 mmol/L (96-108); Creatinine Clr Calc Pharmacy 123.2; Estimated Glomerular Filt Rate > 60; Glucose Random 233 mg/dL (60-115); Magnesium 1.9 mg/dL (1.6-2.6); Phosphorus 1.5 mg/dL (2.7-4.5); Potassium 3.1 mmol/L (3.3-5.1); Sodium 130 mmol/L (135-145)
[2022-09-05 07:22] LABS: Glucose, Whole Blood 209 mg/dL (60-115)
[2022-09-05 07:35] VITALS: BP 121/78; PULSE 84; RESP 18; TEMP 37; O2SAT 100
[2022-09-05] MEDS: PHENobarbitaL 15 MG TABLET 45 MG PO ×2 (08:12→22:21)
[2022-09-05] MEDS: lamoTRIgine 100 MG TABLET 200 MG PO ×2 (08:12→22:22)
[2022-09-05] MEDS: Insulin Glargine,Hum.rec.anlog 100 UNIT/ML 10 ML VIAL 50 UNIT SUBCUT (08:13)
[2022-09-05] MEDS: Insulin Lispro 100 UNIT/ML 3 ML VIAL SUBCUT ×2 (08:13→22:21)
[2022-09-05] MEDS: Thiamine HCL 100 MG TABLET PO (11:01)
[2022-09-05] MEDS: cloNIDine HCL 0.2 MG TABLET PO ×2 (11:01→22:22)
[2022-09-05] MEDS: Folic Acid 1 MG TABLET PO (11:01)
[2022-09-05] MEDS: Acetaminophen 325 MG TABLET 650 MG PO (11:01)
[2022-09-05] MEDS: Famotidine 20 MG TABLET PO (11:01)
[2022-09-05] MEDS: Magnesium Oxide 400 MG TABLET PO ×2 (11:02→22:23)
[2022-09-05 11:30] LABS: Glucose, Whole Blood 71 mg/dL (60-115)
[2022-09-05 12:00] VITALS: BP 103/77; PULSE 91; RESP 18; TEMP 36.5; O2SAT 100
[2022-09-05] MEDS: QUEtiapine Fumarate 200 MG TABLET PO (14:09)
--- NOTE | 2022-09-05 14:09 | P.PNIM_ITS ---
Subjective Subjective Date of Service: 09/05/22 Interval History: Complaining of headache due to lack of sleep, denies chest pain, palpitation tolerating diet with no nausea, no vomiting, no abdominal pain denies urinary symptoms denies cough, no shortness of breath no other acute issues noted to have low potassium and phosphorous likely due to poor by mouth intake due to daily alcohol use. Review of Systems Review of Systems: Yes all other systems are reviewed and are negative Physical Exam Vital Signs: Vital Signs: Last Vital Signs Temp 97.7 F 09/05/22 12:00 Pulse 91 09/05/22 12:00 Resp 18 09/05/22 12:00 BP 103/77 09/05/22 12:00 Pulse Ox 100 09/05/22 12:00 O2 Del Method 09/05/22 12:00 O2 Flow Rate 2 09/04/22 06:57 FiO2 100 09/03/22 18:49 BMI result Body Mass Index 22.9 Const: Other: General awake aler t x3, in no acute distress.? Neck is supple no JVD. CV S? regular rate rh ythm, Respiratory lungs clear to aus cultation, no resp iratory distress, no wheeze, no rhon chi. Gastrointesti nal abdomen soft, non tender, bowel sounds audible, no guarding , no rig idity. Extremities no edema. Neuro n on focal patient m oving all 4 extrem ity speech clear. Skin no rash Psych appropriate affec t Objective Data Active Medications Acetaminophen (Acetaminophen 325 Mg Tablet) 650 mg PO Q6H PRN PRN Reason: Pain, Mild (Pain Scale 1-3) Last Admin: 09/05/22 11:01 Dose: 650 mg Documented By: FLORY Clonidine HCl (Clonidine Hcl 0.2 Mg Tablet) 0.2 mg PO BID [facility]INOR; Protocol Last Admin: 09/05/22 11:01 Dose: 0.2 mg Documented By: FLORY Dextrose (Dextrose 50 % 25 Gm/50 Ml Syringe) 25 gm IVPUSH Q15M PRN; Protocol PRN Reason: per Hypoglycemia Standing Ord. Enoxaparin Sodium (Enoxaparin Sodium 40 Mg/0.4 Ml Syringe) 40 mg SUBCUT Q24H [facility] Last Admin: 09/04/22 21:57 Dose: 40 mg Documented By: LEOBARDO Escitalopram Oxalate (Escitalopram Oxalate 20 Mg Tablet) 20 mg PO DAILY [facility] Famotidine (Famotidine 20 Mg Tablet) 20 mg PO DAILY [facility] Last Admin: 09/05/22 11:01 Dose: 20 mg Documented By: FLORY Folic Acid (Folic Acid 1 Mg Tablet) 1 mg PO DAILY [facility] Last Admin: 09/05/22 11:01 Dose: 1 mg Documented By: FLORY Hydroxyzine HCl (Hydroxyzine Hcl 25 Mg Tablet) 25 mg PO BID PRN PRN Reason: anxiety Insulin Glargine (Insulin Glargine,Hum.Rec.Anlog 100 Unit/Ml 10 Ml Vial) 50 unit SUBCUT DAILY [facility] Last Admin: 09/05/22 08:13 Dose: 50 unit Documented By: FLORY Insulin Human Lispro (Insulin Lispro 100 Unit/Ml 3 Ml Vial) 0 unit SUBCUT QIDACHS [facility]; Protocol Last Admin: 09/05/22 11:36 Dose: Not Given Documented By: FLORY Non-Admin Reason: No Insulin Coverage Lamotrigine (Lamotrigine 100 Mg Tablet) 200 mg PO BID [facility] Last Admin: 09/05/22 08:12 Dose: 200 mg Documented By: FLORY Magnesium Oxide (Magnesium Oxide 400 Mg Tablet) 400 mg PO BID [facility] Last Admin: 09/05/22 11:02 Dose: 400 mg Documented By: FLORY Ondansetron HCl (Ondansetron Hcl 4 Mg/2 Ml Vial) 4 mg IVPUSH Q8H PRN PRN Reason: Nausea and Vomiting Last Admin: 09/04/22 00:21 Dose: 4 mg Documented By: CARLOS Pharmacy Consult (Consult Rx Etoh Phenob Im/Po) 1 each MISCELLANE ONCE PRN; Protocol PRN Reason: Consult order Phenobarbital (Phenobarbital 15 Mg Tablet) 45 mg PO BID [facility]; Protocol Stop: 09/06/22 09:01 Last Admin: 09/05/22 08:12 Dose: 45 mg Documented By: FLORY Phenobarbital (Phenobarbital 15 Mg Tablet) 15 mg PO BID [facility]; Protocol Stop: 09/08/22 09:01 Phenobarbital (Phenobarbital 15 Mg Tablet) 15 mg PO DAILY [facility]; Protocol Stop: 09/09/22 09:01 Potassium Phos/Sodium Phos (Sodium,Potassium Phosphates Powd.Pack) 1 packet PO QID [facility] Quetiapine Fumarate (Quetiapine Fumarate 400 Mg Tablet) 400 mg PO BEDTIME [facility] Quetiapine Fumarate (Quetiapine Fumarate 200 Mg Tablet) 200 mg PO BID@0900,1300 [facility] Thiamine HCl (Thiamine Hcl 100 Mg Tablet) 100 mg PO DAILY [facility] Last Admin: 09/05/22 11:01 Dose: 100 mg Documented By: FLORY Trazodone HCl (Trazodone Hcl 100 Mg Tablet) 200 mg PO BEDTIME [facility] Zolpidem Tartrate (Zolpidem Tartrate 5 Mg Tablet) 5 mg PO BEDTIME [facility] Labs 09/05/22 05:49 09/05/22 05:49 Labs: Laboratory Results - last 24 hr 09/04/22 09/04/22 09/04/22 15:28 16:24 21:33 MCV MCH MCHC RDW Plt Count MPV Immature Gran % (Auto) Neut % (Auto) Lymph % (Auto) Bracken % (Auto) Eos % (Auto) Baso % (Auto) Lymph # (Auto) Bracken # (Auto) Eos # (Auto) Baso # (Auto) Abs Immat Gran (auto) Absolute Neuts (auto) Absolute Nucleated RBC Nucleated RBC % (auto) Anion Gap 13 Estim Creat Clear Calc 104.7 Estimated GFR > 60 POC Glucose 99 75 Random Glucose 126 H Calcium 7.3 L Phosphorus Magnesium Albumin 09/05/22 09/05/22 09/05/22 05:49 05:49 07:10 MCV 84.7 MCH 31.2 MCHC 36.9 H RDW 14.1 Plt Count 140 L MPV 9.8 Immature Gran % (Auto) 0.5 H Neut % (Auto) 54.9 Lymph % (Auto) 33.9 Bracken % (Auto) 10.3 Eos % (Auto) 0.2 Baso % (Auto) 0.2 Lymph # (Auto) 1.5 Bracken # (Auto) 0.4 Eos # (Auto) 0.0 Baso # (Auto) 0.0 Abs Immat Gran (auto) 0.02 Absolute Neuts (auto) 2.4 Absolute Nucleated RBC 0.000 Nucleated RBC % (auto) 0.0 Anion Gap 16 Estim Creat Clear Calc 123.2 Estimated GFR > 60 POC Glucose 209 H Random Glucose 233 H Calcium 8.3 L D Phosphorus 1.5 L Magnesium 1.9 Albumin 3.5 09/05/22 11:24 MCV MCH MCHC RDW Plt Count MPV Immature Gran % (Auto) Neut % (Auto) Lymph % (Auto) Bracken % (Auto) Eos % (Auto) Baso % (Auto) Lymph # (Auto) Bracken # (Auto) Eos # (Auto) Baso # (Auto) Abs Immat Gran (auto) Absolute Neuts (auto) Absolute Nucleated RBC Nucleated RBC % (auto) Anion Gap Estim Creat Clear Calc Estimated GFR POC Glucose 71 Random Glucose Calcium Phosphorus Magnesium Albumin Microbiology Microbiology Results: Microbiology 09/03/22 18:54 Blood Culture - Preliminary Blood - Venous No growth after 24 hours. 09/03/22 18:54 Blood Culture - Preliminary Blood - Venous No growth after 24 hours. Assessment and Plan (1) Bipolar disorder: Status: Acute (2) Alcohol withdrawal: Status: Acute Plan 41-year-old male with past medical history of alcohol abuse brought in to [facility] due to lethargy, with last alcohol consumption 4 days prior to presentation patient in the ER was noted to be obtunded hypotensive, tachycardic tachypneic and when became more over alert admitted that had not taken insulin and 3 days,Laboratory data was significant for? VB.02/14/161/4. ? Serum sodium 118, chloride 82, serum bicarb less than 5, BUN 24, creatinine 1.74, serum glucose 469,ammonia 100? ? ED course:? patient received? 3 L of normal saline, 14 units IV push insulin, and 4 bicarb, 2 g of Mag, ceftriaxone 1 g and ultimately placed on insulin drip and admitted to ICU, patient responded well to above treatment and [place] [facility] [place] after insulin drip was discontinued and patient was placed back on insulin. # acute metabolic encephalopathy secondary to diabetic ketoacidosis on the background of alcohol withdrawal resolved. CT head, urinalysis and chest x-ray was unremarkable. # severe DKA with history of diabetes mellitus type 1 resolved with IV fluid and insulin, no source of infection found continue home dose of Lantus 50 units at bedtime and insulin sliding scale # alcohol withdrawal patient treated with phenobarb protocol currently awake alert continue phenobarb, strongly recommend to abstain from alcohol, continue thiamine and folic acid / care team evaluation # hyponatremia - likely secondary to decreased solute intake, sodium improved to 130 follow BMP DC IV fluids # hypokalemia and low phosphorous will replete and follow labs # bipolar disorder will resume all home medication patient developed headache and insomnia without home medications. DVT prophylaxis: Lovenox In my clinical judgment patient need continued inpatient hospitalization due to alcohol withdrawal, replacement and follow-up on significant electrolyte abnormalities. Time Spent With Patient Time: Total time managing care of this patient today ____ minutes. Quality Stroke Does the patient have a stroke diagnosis?: No VTE Prior VTE?: No VTE Risk Level:: Medical - low VTE Device Contraindication: N/A - Device Ordered VTE Drug Contraindication: N/A - Med Ordered
[2022-09-05] MEDS: Potassium Chloride ER 20 MEQ TAB.ER.PRT 40 MEQ PO (14:10)
[2022-09-05] MEDS: Sodium,Potassium Phosphates POWD.PACK 1 PACKET PO ×3 (14:10→22:23)
[2022-09-05 15:41] VITALS: BP 127/95; PULSE 81; RESP 14; TEMP 36.2; O2SAT 97
[2022-09-05 16:36] LABS: Glucose, Whole Blood 121 mg/dL (60-115)
[2022-09-05 19:40] VITALS: BP 123/91; PULSE 71; RESP 15; TEMP 36.3; O2SAT 100
[2022-09-05 21:08] LABS: Glucose, Whole Blood 217 mg/dL (60-115)
[2022-09-05] MEDS: QUEtiapine Fumarate 400 MG TABLET PO (22:22)
[2022-09-05] MEDS: traZODone HCL 100 MG TABLET 200 MG PO (22:22)
[2022-09-05] MEDS: Zolpidem Tartrate 5 MG TABLET PO (22:22)
[2022-09-05 23:29] VITALS: BP 99/72; PULSE 116; RESP 20; TEMP 36.5; O2SAT 100
[2022-09-06 03:09] VITALS: BP 111/73; PULSE 86; RESP 20; TEMP 36.6; O2SAT 100
[2022-09-06 05:41] VITALS: BMI 22.4
[2022-09-06 07:14] LABS: Glucose, Whole Blood 174 mg/dL (60-115)
[2022-09-06 07:14] LABS: Anion Gap 14 (12-20); Blood Urea Nitrogen 6 mg/dL (9-16); Calcium 8.6 mg/dL (8.4-10.2); Carbon Dioxide 23 mmol/L (22-29); Chloride 101 mmol/L (96-108); Creatinine Clr Calc Pharmacy 121.1; Estimated Glomerular Filt Rate > 60; Phosphorus 2.6 mg/dL (2.7-4.5); Potassium 3.1 mmol/L (3.3-5.1); Sodium 135 mmol/L (135-145)
[2022-09-06 07:24] VITALS: BP 104/72; PULSE 83; RESP 20; TEMP 37.1; O2SAT 99
[2022-09-06 07:34] LABS: Glucose Random 45 mg/dL (60-115)
[2022-09-06] MEDS: PHENobarbitaL 15 MG TABLET 45 MG PO (07:41)
[2022-09-06] MEDS: Sodium,Potassium Phosphates POWD.PACK 1 PACKET PO ×2 (07:41→14:51)
[2022-09-06] MEDS: cloNIDine HCL 0.2 MG TABLET PO (07:42)
[2022-09-06] MEDS: Folic Acid 1 MG TABLET PO (07:42)
[2022-09-06] MEDS: Thiamine HCL 100 MG TABLET PO (07:42)
[2022-09-06] MEDS: Magnesium Oxide 400 MG TABLET PO (07:42)
[2022-09-06] MEDS: Famotidine 20 MG TABLET PO (07:42)
[2022-09-06] MEDS: lamoTRIgine 100 MG TABLET 200 MG PO (07:42)
[2022-09-06] MEDS: Escitalopram Oxalate 20 MG TABLET PO (07:42)
[2022-09-06] MEDS: QUEtiapine Fumarate 200 MG TABLET PO ×2 (07:42→14:52)
[2022-09-06] MEDS: Insulin Glargine,Hum.rec.anlog 100 UNIT/ML 10 ML VIAL 30 UNIT SUBCUT (07:46)
[2022-09-06] MEDS: Potassium Chloride ER 20 MEQ TAB.ER.PRT 40 MEQ PO (07:48)
[2022-09-06 11:15] LABS: Glucose, Whole Blood 132 mg/dL (60-115)
[2022-09-06 11:16] VITALS: BP 99/65; PULSE 69; RESP 20; TEMP 35.9; O2SAT 100
[2022-09-06 12:31] LABS: Potassium 3.6 mmol/L (3.3-5.1)
--- NOTE | 2022-09-06 13:51 | P.DS_ITS ---
DS: Providers Provider Date of Service: 09/06/22 Date of admission: 09/03/22 22:59 Primary care physician: Beena Melo MD Consults: 09/05/22 08:41 Consult to Care Team Routine Comment: Reason for consultation: etoh abuse DS: Diagnosis Discharge Diagnosis (1) Bipolar disorder: Status: Acute (2) Alcohol withdrawal: Status: Acute DS: Summary Hospital Course Hospital Course: Date of Service: 09/03/22 Attending physician on admission: Natalie Soto Chief Complaint: Lethargic The patient is a 41-year-old male with a past medical history of type 1 diabetes mellitus, diabetic neuropathy and ETOH abuse? who presents to the emergency room? via EMS after family member? found him lethargic? at home.? Patient was noted to be severely lethargic, and weak when sister arrived at his house, he also reported no alcohol consumption in 4 days.? In the emergency room the patient? was obtunded,? hypotensive 76/44, respiratory rate 28 with? pulse rate 108.? ? When patient was more alert he was able to state that he had not taken insulin for 3 days Laboratory data was significant for? VB.. ? Serum sodium 118, chloride 82, serum bicarb less than 5, BUN 24, creatinine 1.74, serum glucose 469,ammonia 100? ? ED course:? patient received? 3 L of normal saline, 14 units IV push insulin, and 4 bicarb, 2 g of Mag, ceftriaxone 1 g and ultimately placed on insulin drip. ?Patient will be admitted to the ICU for management of DKA. Hospital course 41-year-old male with past medical history of alcohol abuse brought in to [facility] due to lethargy, with last alcohol consumption 4 days prior to presentation patient in the ER was noted to be obtunded hypotensive, tachycardic, tachypneic and when became more awake, alert admitted that had not taken insulin x 3 days,Laboratory data was significant for? VB.. Serum sodium 118, chloride 82, serum bicarb less than 5, BUN 24, creatinine 1.74, serum glucose 469,ammonia 100?,? patient received? 3 L of normal saline, 14 units IV push insulin, and 4 bicarb, 2 g of Mag, ceftriaxone 1 g and ultimately placed on insulin drip and admitted to ICU, patient responded well to above treatment and was transferred down [place] [facility] [place] 04 after insulin drip was discontinued and patient was placed back on insulin. # acute metabolic encephalopathy secondary to diabetic ketoacidosis on the background of alcohol withdrawal resolved.? CT head, urinalysis and chest x-ray was unremarkable, strongly recommend to follow diabetic diet and use insulin as directed and strongly advised to abstain from alcohol.. # severe DKA with history of diabetes mellitus type 1?resolved with IV fluid and insulin, no source of infection found continue , noted to have low blood sugars due to decreased by mouth intake dose of Lantus reduced from 50 units to 30 units Recommend to follow-up blood sugar q.i.d. at home and adjust dose of Lantus if noted to have increased blood sugars above 150 . # alcohol withdrawal patient treated with phenobarb protocol ,strongly recommend to abstain from alcohol, continue thiamine and folic acid and outpatient follow- up at [facility]. # hyponatremia - likely secondary to decreased solute intake, sodium improved to 130. # hypokalemia and low phosphorous repleted and improved # bipolar disorder continue all home medications. Time Spent with Patient Time attestation: Total time managing care of this patient today ____ minutes. Discharge coordination time: Greater than 30 minutes Quality: Safe Use of Opioids Does Pt have an Active Cancer Diagnosis on the Problem List?: No Quality: Stroke Does the patient have a stroke diagnosis?: No Physical Exam Vital Signs: Vital Signs: Last Vital Signs Temp 96.6 F L 09/06/22 11:16 Pulse 69 09/06/22 11:16 Resp 20 09/06/22 11:16 BP 99/65 09/06/22 11:16 Pulse Ox 100 09/06/22 11:16 O2 Del Method 09/06/22 11:16 O2 Flow Rate 2 09/04/22 06:57 FiO2 100 09/03/22 18:49 BMI result Body Mass Index 22.4 Const: Other: General awake alert x3, in no acute distress.? Neck is supple no JVD. CVS? regular rate rhythm, Respiratory lungs clear to auscultation, no respiratory distress, no wheeze, no rhonchi. Gastrointestinal abdomen soft, nontender, bowel sounds audible, no guarding , no rigidity. Extremities no edema. Neuro nonfocal patient moving all 4 extremity speech clear. Skin no rash Psych appropriate affect DS: Data Data Completed and Pending Completed studies during hospitalization [Text1]: Procedures Detoxification Services for Substance Abuse Treatment (06/12/22) Insertion of Endotracheal Airway into Trachea, Via Natural or Artificial Opening (01/27/22) Insertion of Infusion Device into Superior Vena Cava, Percutaneous Approach (05/21/22) Respiratory Ventilation, Less than 24 Consecutive Hours (01/27/22) Ultrasonography of Superior Vena Cava, Guidance (05/21/22) Labs on day of discharge: Laboratory Results - last 24 hr 09/05/22 09/05/22 09/06/22 16:23 19:45 05:58 Sodium 135 Potassium 3.1 L Chloride 101 Carbon Dioxide 23 Anion Gap 14 BUN 6 L Creatinine 0.73 Estim Creat Clear Calc 121.1 Estimated GFR > 60 POC Glucose 121 H 217 H Random Glucose 45 L* Calcium 8.6 Phosphorus 2.6 L 09/06/22 09/06/22 09/06/22 07:11 11:12 12:02 Sodium Potassium 3.6 Chloride Carbon Dioxide Anion Gap BUN Creatinine Estim Creat Clear Calc Estimated GFR POC Glucose 174 H 132 H Random Glucose Calcium Phosphorus Preliminary micro results at discharge 09/03/22 18:54 Blood Culture - Preliminary Blood - Venous No growth after 48 hours. 09/03/22 18:54 Blood Culture - Preliminary Blood - Venous No growth after 48 hours. Discharge Plan Discharge Anticipated Discharge Date/Time: 09/06/22 13:43 Patient Disposition: Home, Self-Care Discharge Diagnosis: DKA Acute metabolic encephalopathy Alcohol withdrawal Hyponatremia Hypokalemia Referrals: Beena Melo MD [Primary Care Provider] - 1 Week Discharge Medications: Continued (DME) lancets [TRUEplus Lancets] 33 gauge misc See Rx Instructions .Route Qty: 200 11RF Rx Instructions: Four times a day (DME) pen needle, diabetic [BD July 2nd Gen Pen Needle] 32 gauge x 5/32 needle See Rx Instructions .MEDSUPPLY Qty: 150 4RF Rx Instructions: 5 times a day (DME) FreeStyle Lite Strips Strip See Rx Instructions .Route Qty: 150 11RF Rx Instructions: Four times a day famotidine [Pepcid AC] 20 mg Tablet 20 mg PO DAILY quetiapine 400 mg tablet 1 tab PO BEDTIME quetiapine 400 mg tablet extended release 24 hr 1 tab PO QAM insulin aspart U-100 [Novolog FlexPen U-100 Insulin] 100 unit/mL (3 mL) insulin pen 0 sliding scale dose subcut QIDACHS Protocol: Insulin Correction Scale Less than or equal to 110 ---- Give (units): 0 111 to 150 Give (units): 0 151 to 200 Give (units): 2 201 to 250 Give (units): 4 251 to 300 Give (units): 6 301 to 350 Give (units): 8 Greater than 350 Give (units): 10 Call MD if Blood Glucose > : 350 hydroxyzine pamoate 25 mg capsule 1 cap PO BID PRN (Reason: anxiety) lamotrigine 200 mg tablet 200 mg PO BID zolpidem 5 mg tablet 1 tab PO BEDTIME trazodone 100 mg tablet 200 mg PO BEDTIME clonidine HCl 0.2 mg tablet 0.2 mg PO BID citalopram 40 mg tablet 40 mg PO DAILY thiamine HCl (vitamin B1) 100 mg tablet 100 mg PO DAILY folic acid 1 mg tablet 1 mg PO DAILY magnesium oxide 400 mg (241.3 mg magnesium) tablet 400 mg PO BID Changed insulin glargine [Lantus Solostar U-100 Insulin] 100 unit/mL (3 mL) insulin pen 30 unit subcut DAILY Qty: 15 0RF Discharge Orders: Discharge Order (Routine); Ordered 09/06/22 Ordered By: Julee Ornelas Diet: Diabetic diet Activity on Discharge: As tolerated Stand Alone Forms: Patient Portal Discharge page Care Plan Goals: Dose of Lantus reduced from 50 units to 30 units due to episodes of low blood sugars recommended to monitor blood sugars q.i.d. follow diabetic diet and strongly recommend to abstain from alcohol, has recommended to follow-up at [facility] Concerns: Diabetes mellitus follow diabetic diet monitor blood sugars and adjust dose of Lantus if noted to have blood sugars greater than 150 Plan of Treatment: Follow-up with primary care physician Assessment: As above
--- NOTE | 2022-09-06 13:51 | MHC.CM.PN ---
pt dcd home n o skilled servcies ordered by
--- NOTE | 2022-09-06 15:19 | MHC.RECOVRN ---
Met with pt in 454 after consult placed to CARE Team for alcohol use. Pt laying in bed, awake, alert, easily engages in conversation. Pt reports drinking 1 pint of alcohol daily x 7 months. Prior to that pt had been in recovery x 2 years. During period of recovery, pt was staying busy, attended IOP at [facility], and received Vivitrol. Pt has not received Vivitrol nor taken naltrexone since last summer. Pt is interested in restarting. Pt had initially been prescribed naltrexone by psychiatrist at [facility] and then received the injection through . Pt found it to be very helpful, as well as the IOP. Pt lives in an apartment with his two dogs and helps take care of the apartment complex. Pt sees therapist, Zaira, weekly. Pt reports having family support as well as family hx AUD. License has been suspended, pt is working on getting it reinstated. Pt denies other substances. Pt aware UDS positive for fentanyl, reports that has happened before as a result of his psychiatric medications. Pt provided with recovery resources and information, including [facility] and IOP. Pt also provided with t/w contact information if needed. RN aware.
[2022-09-18 11:42] LABS: Glucose, Whole Blood 231 mg/dL (60-115)
== END 2022-09-06 17:04 | disposition home or self-care (01) | DRG 637 ==
LOC: HO.ED 22:47 → HO.EDOVER 23:11 → HO.ICU 23:28 → HO.IMC 09-04 19:51
PROVIDERS: Internal Medicine Cardiovascular Disease; Internal Medicine Pulmonary Disease; Admitting Provider Registered Nurse Community Health; Emergency Provider Internal Medicine; PCP Internal Medicine; Visit Provider Hospitalist
DX: E10.10 Type 1 diabetes mellitus with ketoacidosis without coma (principal); G93.41 Metabolic encephalopathy; N17.9 Acute kidney failure, unspecified; F10.139 Alcohol abuse with withdrawal, unspecified; E10.43 Type 1 diabetes mellitus with diabetic autonomic (poly)neuropathy; K31.84 Gastroparesis; E86.0 Dehydration; F31.9 Bipolar disorder, unspecified; E10.42 Type 1 diabetes mellitus with diabetic polyneuropathy; E87.6 Hypokalemia; I95.9 Hypotension, unspecified; Z20.822 Contact with and (suspected) exposure to COVID-19; Z88.0 Allergy status to penicillin; Z88.8 Allergy status to other drugs, medicaments and biological substances; Z79.899 Other long term (current) drug therapy
CPT/HCPCS: 36415; 70450; 71045; 80048; 80053; 80307; 81001; 82009; 82040; 82077; 82140; 82803; 82947; 83605; 83690; 83735; 84100; 84132; 84484; 85025; 85610; 87040; 87635; 93005; 99284; J0611; J0696; J1650; J2405; J2560; J3475

== ENCOUNTER 2022-09-25 22:30 | Inpatient (IN) | payer OTHER, SELFPAY ==
--- NOTE | ~2022-09-25 | CT_ITS ---
EXAMINATION: CT head/brain wo IV con, CT cervical spine wo IV con INDICATION INFORMATION: Reason for Exam fall etoh head strike COMPARISON: CT head without contrast 09/03/2022 TECHNIQUE: Separate noncontrast CT examinations of the head and cervical spine were performed. Coronal and sagittal images were created for each examination at the technologist workstation. This CT examination was performed using dose optimization techniques as appropriate, variously including the following: *Automated exposure control *Adjustment of mA and/or kV according to patient size (this includes techniques or standardized protocols for targeted exams where dose is matched to indication/reason for exam; i.e. extremities or head) *Use of iterative reconstruction technique DLP: CT Head without contrast: 729.33 mGy-cm; CT cervical spine without contrast 483.97 mGy-cm FINDINGS: Head: Small left frontotemporal scalp contusion and laceration. No underlying calvarial fracture. The mastoid air cells and visualized portions of the paranasal sinuses are well aerated. There is no evidence of acute intracranial hemorrhage or territorial infarction. No abnormal mass effect or midline shift is seen. Person to white matter differentiation is well preserved. No extra-axial fluid collections are identified. No hydrocephalus. No significant volume loss. There is no abnormal attenuation within the brain parenchyma. Cervical spine: There is no evidence of acute cervical spine fracture. Vertebral bodies remain normal in height. Alignment is maintained. Disc space heights are maintained. No pre- or paravertebral soft tissue abnormality is identified. Visualized portions of the lung apices are unremarkable. The thyroid gland is unremarkable. Carotid artery calcifications. CT/CT cervical spine wo IV con IMPRESSION: 1. No acute intracranial abnormality. 2. No cervical spine fracture or traumatic malalignment.
--- NOTE | ~2022-09-25 | CT_ITS ---
EXAMINATION: CT CHEST, ABDOMEN AND PELVIS WITH CONTRAST. CT THORACIC AND LUMBAR SPINE WITHOUT CONTRAST (REFORMATS) CLINICAL INFORMATION: Fall and trauma. COMPARISON: CT abdomen pelvis 03/14/2022, CT chest abdomen pelvis 10/26/2018. TECHNIQUE: Multidetector volumetric imaging was performed from the thoracic inlet through the pubic symphysis following the administration of: Oral contrast: No Intravenous contrast: 85 mL Omnipaque 350 No contrast reaction reported Sagittal and coronal reformatted images were obtained on the technologist workstation. In addition, thin section, high resolution reconstruction, targeted reformatted images through the thoracic and lumbar spine were obtained with coronal and sagittal high resolution reformatted images as well. This CT examination was performed using dose optimization techniques as appropriate, variously including the following: *Automated exposure control *Adjustment of mA and/or kV according to patient size (this includes techniques or standardized protocols for targeted exams where dose is matched to indication/reason for exam; i.e. extremities or head) *Use of iterative reconstruction technique Total exam dose-length product 717 mGy-cm FINDINGS: CHEST: VASCULAR: The aorta is normal; no evidence of dissection, aneurysm, or traumatic aortic injury. The central pulmonary arteries enhance normally. AORTIC ISTHMUS: Normal. MEDIASTINUM: No mediastinal fluid or hematoma. No hilar or mediastinal lymphadenopathy. LUNG: There is a tiny 2 mm nodule in the left upper lobe (25:160). No other nodules, mass, or focal consolidation. PLEURA: No pleural effusion. No pneumothorax. No pleural mass or thickening. CHEST WALL/AXILLA: There are fractures of the anterolateral left seventh and eighth ribs which appear subacute. No chest wall hematoma is seen. ABDOMEN/PELVIS : LIVER : The liver is normal in size and shape but demonstrates markedly decreased attenuation consistent with hepatic steatosis. No focal hepatic lesion or biliary ductal dilatation is present. GALLBLADDER, AND BILIARY TREE The gallbladder is unremarkable with no evidence of radiopaque gallstones, gallbladder wall thickening, or obvious pericholecystic inflammatory changes. PANCREAS: Chronic calcifications are seen throughout the pancreas consistent with chronic pancreatitis. No pancreatic mass is seen. SPLEEN: Normal size. No focal lesion. ADRENAL GLANDS: Normal; no mass. KIDNEYS AND URETERS: The kidneys are normal in size, shape, and attenuation. No hydronephrosis, hydroureter, or calculi. URINARY BLADDER: There is marked distention of the urinary bladder extending above the umbilicus.. GASTROINTESTINAL TRACT: Stomach and small bowel non-dilated. No colonic wall thickening or pericolonic inflammatory changes. Normal appendix. VASCULAR STRUCTURES: There is no evidence of aortic or iliac injury. The inferior vena cava is intact. Incidental note made of a retroaortic left renal vein ACTIVE BLEEDING: No. LYMPH NODES: No lymphadenopathy. The aorta is unremarkable. PELVIC VISCERA: The prostate and seminal vesicles are normal. FREE FLUID: None. ABDOMINAL WALL: No significant hernia is appreciated. OSSEOUS STRUCTURES : See above regarding left-sided rib fractures. No clavicle or scapula fracture. No sternal fracture seen. Normal sagittal alignment of the thoracic and lumbar spine. Vertebral body and disc heights are maintained; no compression fracture. Posterior elements intact. No sacral or pelvic fracture, The visualized hips are intact. CT/CT abdomen pelvis w IV con IMPRESSION: 1. Fractures of the anterolateral left seventh and eighth ribs appear subacute. 2. No other acute traumatic injuries are identified in the chest, abdomen, and pelvis. 3. Incidental note made of hepatic steatosis, chronic pancreatitis and marked distention of the urinary bladder. 4. There is a tiny 2 mm nodule in the left upper lobe (25:160) should need no follow-up.
[2022-09-25 22:42] VITALS: BP 136/98; PULSE 106; O2SAT 99
--- NOTE | 2022-09-25 22:43 | ECG_ITS ---
Test Reason : SYNCOPE Blood Pressure : / mmHG Vent. Rate : 100 BPM Atrial Rate : 100 BPM P-R Int : 138 ms QRS Dur : 086 ms QT Int : 362 ms P-R-T Axes : 072 053 067 degrees QTc Int : 466 ms Normal sinus rhythm Normal ECG When compared with ECG of 03-SEP-2022 19:36, QT has shortened Referred By: Claudia Wu Electronically Signed By:KIRSTEN RAO
--- NOTE | 2022-09-25 22:44 | ED_ITS ---
HPI - Fall General Chief Complaint: Fall <SUSIE Rodriguez Last Filed: 09/26/22 01:20> Stated Complaint: fall <SUSIE Rodriguez Last Filed: 09/26/22 01:20> Time Seen by Provider: 09/25/22 22:42 <SUSIE Rodriguez Last Filed: 09/26/22 01:20> Source: patient and EMS <SUSIE Rodriguez - Last Filed: 09/26/22 01:20> Mode of arrival: EMS <SUSIE Rodriguez Last Filed: 09/26/22 01:20> Limitations: other (intoxicated) <SUSIE Rodriguez Last Filed: 09/26/22 01:20> History of Present Illness HPI Narrative: 41-year-old male with history of chronic alcohol use and diabetes brought in via EMS after a falling hitting his head, patient tells me he thinks he was dizzy and fell or he possibly had a seizure secondary to alcohol withdrawal, fell onto hard floor hit head, unknown downtime. Patient states he has history of alcohol withdrawal seizures. Patient also sustained a laceration to his head, not on blood thinners. Patient is a poor historian. Patient was detoxing at home from alcohol and his last drink was on . Patient urinated on himself and moved himself to the couch where he was found by his sister, who called EMS. EMS states patient has bruising to abdomen and right arm. Patient denies seizure history. Currently wearing a C-collar. Denies thinners. <SUSIE Rodriguez - Last Filed: 09/26/22 01:20> Related Data Home Medications: Home Medications Medication Instructions Recorded Confirmed clonidine HCl 0.2 mg tablet 0.2 mg PO BID 11/11/20 09/04/22 trazodone 100 mg tablet 200 mg PO BEDTIME 11/11/20 09/04/22 lamotrigine 200 mg tablet 200 mg PO BID 01/28/22 09/04/22 citalopram 40 mg tablet 40 mg PO DAILY 02/08/22 09/04/22 folic acid 1 mg tablet 1 mg PO DAILY 02/08/22 09/04/22 magnesium oxide 400 mg (241.3 mg 400 mg PO BID 02/08/22 09/04/22 magnesium) tablet thiamine HCl (vitamin B1) 100 mg 100 mg PO DAILY 02/08/22 09/04/22 tablet zolpidem 5 mg tablet 1 tab PO BEDTIME 03/14/22 09/04/22 famotidine 20 mg tablet (Pepcid AC) 20 mg PO DAILY 05/21/22 09/04/22 insulin aspart U-100 100 unit/mL 0 sliding scale dose subcut QIDACHS 06/12/22 09/04/22 (3 mL) subcutaneous pen (Novolog FlexPen U-100 Insulin aspart) quetiapine 400 mg tablet 1 tab PO BEDTIME 06/12/22 09/04/22 quetiapine 400 mg tablet,extended 1 tab PO QAM 06/12/22 09/04/22 release 24 hr hydroxyzine pamoate 25 mg capsule 1 cap PO BID PRN anxiety 09/04/22 09/04/22 Previous Rx's Medication Instructions Recorded lancets 33 gauge (TRUEplus Lancets) #200 ea 03/08/21 pen needle, diabetic 32 gauge x #150 ea 02/07/22/32 (BD July 2nd Gen Pen Needle) blood sugar diagnostic (FreeStyle #150 ea 03/20/22 Lite Strips) insulin glargine 100 unit/mL (3 30 unit (0.3 mL) subcut DAILY #15 09/06/22 mL) subcutaneous pen (Lantus mL Solostar U-100 Insulin) <SUSIE Rodriguez - Last Filed: 09/26/22 01:20> Allergies/Adverse Reactions: Allergies Allergy/AdvReac Type Severity Reaction Status Date / Time meropenem [MEROPENEM] Allergy Unknown SWELLING Verified 09/25/22 22:45 penicillin G procaine Allergy Unknown itching Verified 09/25/22 22:45 Penicillins [PENICILLINS] Allergy Unknown SWELLING Verified 09/25/22 22:45 <SUSIE Rodriguez - Last Filed: 09/26/22 01:20> Review of Systems Review of Systems: Yes Unobtainable due to mental status <SUSIE Rodriguez - Last Filed: 09/26/22 01:20> [facility] Past Medical History Attestation statement: The following information was validated with the patient. 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 Mother Diabetes <SUSIE Rodriguez - Last Filed: 09/26/22 01:20> Social History Social History: Social History Household Members: None Household Members Other:: with dog Housing: Apartment Do you presently have visiting nurse or other home services: No Alcohol intake: never Patient Tobacco Use Status: Never used Tobacco Smoked in Last 30 Days: No e-Cigarette/Vaping Use: Never Used Second Hand Smoke Exposure: No Use of substances other than those prescribed or required for medical reasons: Yes Advance Directives: Yes Advance Directives on File: Yes Advance Directives Date on File: 02/07/22 Current occupational status: employed <SUSIE Rodriguez - Last Filed: 09/26/22 01:20> Physical Exam Vital Signs: Vital Signs: Last Vital Signs Temp 98.0 F 09/26/22 04:27 Pulse 103 H 09/26/22 04:27 Resp 16 09/26/22 04:27 BP 137/90 H 09/26/22 04:27 Pulse Ox 99 09/26/22 04:27 O2 Del Method 09/26/22 04:27 BMI result Body Mass Index 21.1 vss <SUSIE Rodriguez - Last Filed: 09/26/22 01:20> Vital Signs: Last Vital Signs Temp 98.0 F 09/26/22 04:27 Pulse 103 H 09/26/22 04:27 Resp 16 09/26/22 04:27 BP 137/90 H 09/26/22 04:27 Pulse Ox 99 09/26/22 04:27 O2 Del Method 09/26/22 04:27 BMI result Body Mass Index 21.1 <Kodi Roberts MD - Last Filed: 09/26/22 07:33> Appearance: Alert.? Oriented X3.? No acute distress.? Head: Normocephalic, atraumatic, no step-offs or deformities + small laceration to top of head Eyes: Pupils equal, round and reactive to light.? ENT: Pharynx normal.??External ears normal, TMs normal bilaterally and EAC's normal. No pain with manipulation of external ears bilaterally. No mastoid tenderness. Neck: Normal inspection.? Neck supple.?In cervical collar. CVS: Normal heart rate and rhythm.? Pulses normal.? Respiratory: No respiratory distress.? Breath sounds normal.? Abdomen: Soft and nontender.?+ bruising on abdomen Skin: Skin warm and dry.? Normal skin color.? Normal skin turgor.? Extremities: No lower extremity edema.? No calf ttp. 5/5 strength to bilateral upper and lower extremities + bruising to right arm Neuro: Oriented X 3.? No motor deficit.? No sensory deficit. CN 2-12 intact . Ambulating with steady gait normal coordination. GCS 14 <SUSIE Rodriguez - Last Filed: 09/26/22 01:20> Course Reevaluation(s) Reevaluation #1: I went to speak to patient, history continues to change now he says he does not think he had an alcohol withdrawal seizure. Patient states he thinks he just passed out in the kitchen. Patient's CBC with a normocytic anemia and leukopenia both of which appear to be around patient's baseline. Patient's platelet count noted to be low 70, however he has had low platelet counts in the past. Patient's labs have hemolyzed multiple times. CT of the chest showing fractures of the anterior lateral 7th and 8th ribs. No other acute traumatic injuries of the chest, abdomen or pelvis. Hepatic steatosis noted. No acute findings in the cervical spine or in the brain. No signs of intracranial hemorrhage or stroke. Due to patient's rib fractures will give incentive spirometer. I did discuss this case with hospitalist for admission, however patient is adamant that he would like to go home, refusing further blood draws, tells me he has a sober ride home, explained to him that this could be a syncopal episode versus alcohol withdrawal seizure, I explained him potential risks include another seizure, , worsening symptoms, decreased quality of life, cardiac arrest, undiagnosed illnesses. Patient verbalizes understanding. And is anabela ling to go home. To note, patient is alert and oriented x4, ambulatory with steady gait normal coordination, able to make his own decision and is able to verbalize understanding of risks and benefits of leaving against medical advice. Patient will be signing out against medical advice. Refusing all further intervention and treatment including hospital admission. Patient states he has a safe ride home. <SUSIE Rodriguez - Last Filed: 09/26/22 01:20> Time: 01:03 <SUSIE Rodriguez - Last Filed: 09/26/22 01:20> Medications Administered Generic Name Dose Route Start Last Admin Trade Name Freq PRN Reason Stop Dose Admin Phenobarbital Sodium 182 mg 09/26/22 06:00 09/26/22 06:13 Phenobarbital Sodium 130 Mg/Ml Vial Im Q3hx2 IM 09/26/22 09:01 182 mg Q3H MAINOR Administration Discontinued Medications Generic Name Dose Route Start Last Admin Trade Name Freq PRN Reason Stop Dose Admin Folic Acid 1 mg 09/26/22 02:44 09/26/22 03:22 Folic Acid 1 Mg Tablet PO 09/26/22 02:45 1 mg ONCE ONE Administration Sodium Chloride 1,000 mls @ 999 mls/hr 09/26/22 02:44 09/26/22 03:23 Ns IV 09/26/22 03:44 999 mls/hr .Q1H1M ONE Administration Thiamine HCl 500 mg/ Sodium 105 mls @ 210 mls/hr 09/26/22 02:44 09/26/22 03:21 Chloride IV 09/26/22 03:13 210 mls/hr ONCE ONE Administration Sodium Chloride 1,000 mls @ 999 mls/hr 09/26/22 04:40 09/26/22 06:10 Ns IV 09/26/22 05:40 999 mls/hr .Q1H1M ONE Administration Insulin Human Regular 5 unit 09/26/22 04:40 09/26/22 06:11 Insulin Regular, Human 100 Unit/Ml 3 Ml Vial IVPUSH 09/26/22 04:41 5 unit ONCE ONE Administration Iohexol 85 ml 09/26/22 00:08 09/26/22 00:08 Iohexol 350 Mg/Ml 100 Ml Infus..Btl IV 09/26/22 00:09 85 ml ONCE ONE Administration Lorazepam 1 mg 09/26/22 02:46 09/26/22 03:21 Lorazepam 2 Mg/Ml Vial IVPUSH 09/26/22 02:47 1 mg ONCE ONE Administration Phenobarbital Sodium 247 mg 09/26/22 03:00 09/26/22 03:20 Phenobarbital Sodium 130 Mg/Ml Im Once IM 09/26/22 03:01 247 mg ONCE ONE Administration <SUSIE Rodriguez - Last Filed: 09/26/22 01:20> Medications Administered Generic Name Dose Route Start Last Admin Trade Name Freq PRN Reason Stop Dose Admin Phenobarbital Sodium 182 mg 09/26/22 06:00 09/26/22 06:13 Phenobarbital Sodium 130 Mg/Ml Vial Im Q3hx2 IM 09/26/22 09:01 182 mg Q3H MAINOR Administration Discontinued Medications Generic Name Dose Route Start Last Admin Trade Name Freq PRN Reason Stop Dose Admin Folic Acid 1 mg 09/26/22 02:44 09/26/22 03:22 Folic Acid 1 Mg Tablet PO 09/26/22 02:45 1 mg ONCE ONE Administration Sodium Chloride 1,000 mls @ 999 mls/hr 09/26/22 02:44 09/26/22 03:23 Ns IV 09/26/22 03:44 999 mls/hr .Q1H1M ONE Administration Thiamine HCl 500 mg/ Sodium 105 mls @ 210 mls/hr 09/26/22 02:44 09/26/22 03:21 Chloride IV 09/26/22 03:13 210 mls/hr ONCE ONE Administration Sodium Chloride 1,000 mls @ 999 mls/hr 09/26/22 04:40 09/26/22 06:10 Ns IV 09/26/22 05:40 999 mls/hr .Q1H1M ONE Administration Insulin Human Regular 5 unit 09/26/22 04:40 09/26/22 06:11 Insulin Regular, Human 100 Unit/Ml 3 Ml Vial IVPUSH 09/26/22 04:41 5 unit ONCE ONE Administration Iohexol 85 ml 09/26/22 00:08 09/26/22 00:08 Iohexol 350 Mg/Ml 100 Ml Infus..Btl IV 09/26/22 00:09 85 ml ONCE ONE Administration Lorazepam 1 mg 09/26/22 02:46 09/26/22 03:21 Lorazepam 2 Mg/Ml Vial IVPUSH 09/26/22 02:47 1 mg ONCE ONE Administration Phenobarbital Sodium 247 mg 09/26/22 03:00 09/26/22 03:20 Phenobarbital Sodium 130 Mg/Ml Im Once IM 09/26/22 03:01 247 mg ONCE ONE Administration <Kodi Roberts MD - Last Filed: 09/26/22 07:33> Medical Decision Making Medical Decision Making MDM Narrative: 2245 41-year-old male with a history of chronic alcohol presents status post fall with head strike, unknown down time, positive head strike, not on blood thinners however did have an episode of urinary incontinence. Physical examination with laceration to head, ecchymosis to abdomen and right arm. Neuro nonfocal. GCS of 14. History and physical examination concerning for possible seizure secondary to alcohol withdrawal, possible mechanical trip and fall or fall secondary to alc ohol intoxication or polysubstance abuse. Will rule out intracranial hemorrhage, stroke although unlikely. Will also rule out electrolyte abnormalities and trauma chest, abdomen pelvis. Although patient did have an episode of urinary incontinence, he does not report back pain, saddle paresthesias, he is ambulatory with steady gait I do not suspect cord compression or cauda equina. Plan at this time labs, imaging, ethanol level, salicylates, acetaminophen, CPK, EKG <SUSIE Rodriguez - Last Filed: 09/26/22 01:20> 4 41-year-old male with a history of chronic alcohol presents status post fall with head strike, unknown down time, positive head strike, not on blood thinners however did have an episode of urinary incontinence. Physical examination with laceration to head, ecchymosis to abdomen and right arm. Neuro nonfocal. GCS of 14. History and physical examination concerning for possible seizure secondary to alcohol withdrawal, possible mechanical trip and fall or fall secondary to alcohol intoxication or polysubstance abuse. Will rule out intracranial hemorrhage, stroke although unlikely. Will also rule out electrolyte abnormalities and trauma chest, abdomen pelvis. Although patient did have an episode of urinary incontinence, he does not report back pain, saddle paresthesias, he is ambulatory with steady gait I do not suspect cord compression or cauda equina. Plan at this time labs, imaging, ethanol level, salicylates, acetaminophen, CPK, EKG 245am patient seen and evaluated patient with multiple falls in the past alcoholic last drink 3 days ago hallucinating and shaky in withdrawal clinically patient has cerebellar signs or ataxia unable to stand on his feet will give him thiamine IV fluid phenobarb protocol and admit awaiting for the chemistry 430 am lab showed blood glucose of 341 with anion gap of 34 bicarb of 15 will check the serum acetone venous gases give insulin likely patient might be DKA versus alcoholic ketoacidosis Lab showed normal pH. Mild acetone likely ketoacidosis secondary to alcohol. Hospitalist aware <Kodi Roberts MD - Last Filed: 09/26/22 07:33> Differential Diagnosis Differential Diagnoses: The differential diagnosis associated with the presentation includes <SUSIE Rodriguez - Last Filed: 09/26/22 01:20> History and physical examination concerning for possible seizure secondary to alcohol withdrawal, possible mechanical trip and fall or fall secondary to alcohol intoxication or polysubstance abuse. Will rule out intracranial hemorrhage, stroke although unlikely. Will also rule out electrolyte abnormalities and trauma chest, abdomen pelvis. <SUSIE Rodriguez - Last Filed: 09/26/22 01:20> Admission/Observation Consideration of admission/observation: Escalation of care including admission/observation considered <SUSIE Rodriguez - Last Filed: 09/26/22 01:20> will efremley require hospital admission. <SUSIE Rodriguez - Last Filed: 09/26/22 01:20> Consult Healthcare Provider Management of the patient was discussed with: Hospitalist <SUSIE Rodriguez - Last Filed: 09/26/22 01:20> Lab Data MDM Lab Attestation statement: I reviewed the patient's lab results. <SUSIE Rodriguez - Last Filed: 09/26/22 01:20> Result Diagrams: 09/25/22 23:09 09/25/22 23:09 <SUSIE Rodriguez - Last Filed: 09/26/22 01:20> Labs: Lab Results 09/25/22 09/25/22 09/26/22 Range/Units 23:09 23:09 02:45 WBC 4.2 L (4.8-10.8) X10*3/uL RBC 3.58 L (4.60-5.80) X10*6/uL Hgb 11.4 L (14.0-18.0) g/dl Hct 32.3 L (42.0-52.0) % MCV 90.2 (80.0-98.0) fL MCH 31.8 (27.0-33.0) pg MCHC 35.3 (31.0-36.0) g/dl RDW 13.4 (11.0-16.0) % Plt Count 70 L D (160-400) X10*3/uL MPV 11.0 (9.4-12.4) fL Immature Gran % (Auto) 0.5 H (0.0-0.4) % Neut % (Auto) 69.1 (45-73) % Lymph % (Auto) 24.9 (20-40) % [place] % (Auto) 5.3 (2-11) % Eos % (Auto) 0.0 (0-4) % Baso % (Auto) 0.2 (0-2) % Lymph # (Auto) 1.0 L (1.2-4.9) X10*3/uL [place] # (Auto) 0.2 (0.1-1.2) X10*3/uL Eos # (Auto) 0.0 (0.0-0.4) X10*3/uL Baso # (Auto) 0.0 (0.0-0.2) X10*3/uL Abs Immat Gran (auto) 0.02 (0.00-0.03) X10*3/uL Absolute Neuts (auto) 2.9 (2.0-8.3) x10*3/uL Absolute Nucleated RBC 0.000 (0.0-0.012) X10*3/uL Nucleated RBC % (auto) 0.0 (0.0-0.2) /100WBC PT (10.0-13.1) SEC INR (0.9-1.1) VBG pH (7.32-7.43) VBG pCO2 mmHg VBG pO2 mmHg VBG HCO3 (22-26) mmol/L VBG O2 Saturation % VBG Base Excess mmol/L Sodium 130 L (135-145) mmol/L Potassium 3.7 (3.3-5.1) mmol/L Chloride 84 L (96-108) mmol/L Carbon Dioxide 15 L (22-29) mmol/L Anion Gap 35 H (12-20) BUN 12 (9-16) mg/dL Creatinine 1.14 (0.5-1.4) mg/dL Estim Creat Clear Calc 73.0 Estimated GFR > 60 POC Glucose (60-115) mg/dL Random Glucose 341 H (60-115) mg/dL Calcium 8.7 (8.4-10.2) mg/dL Magnesium 2.3 (1.6-2.6) mg/dL Total Bilirubin 1.3 H (0.0-1.0) mg/dL AST 114 H (5-37) U/L ALT 67 H (0-40) U/L Alkaline Phosphatase 265 H (39-117) U/L Total Creatine Kinase Cancelled 108 Troponin I High Sens (<3.5-35.0) ng/L Total Protein 7.4 (6.5-8.0) g/dL Albumin 4.0 (3.5-5.0) g/dL Lipase < 4 L (8-78) U/L Urine Color Urine Appearance Urine pH (5.0-9.0) Ur Specific [place] (1.005-1.025) Urine Protein (Neg-Trace) mg/dL Urine Glucose (UA) (Negative) mg/dL Urine Ketones (Negative) mg/dL Urine Blood (Negative) Urine Nitrite (Negative) Ur Leukocyte Esterase (Negative) Urine RBC (0-2) /HPF Urine WBC (0-5) /HPF Ur Squamous Epith Cells (0-2) /HPF Urine Bacteria (None Seen) Hyaline Casts (0-2) /LPF Salicylates < 5.0 L (15-30) mg/dL Urine Opiates Screen (Not Detect) Urine Fentanyl Screen (Not Detect) Acetaminophen < 17 (<30) mcg/mL Ur Barbiturates Screen (Not Detect) Ur Phencyclidine Scrn (Not Detect) Ur Amphetamines Screen (Not Detect) U Benzodiazepines Scrn (Not Detect) Urine Cocaine Screen (Not Detect) U Marijuana (THC) Screen (Not Detect) Ethyl Alcohol Cancelled < 10 Acetone, Qual (Negative) COVID-19 (ALLEN) (Negative) COVID-19 Clin Com 09/26/22 09/26/22 09/26/22 Range/Units 02:45 02:45 02:45 WBC (4.8-10.8) X10*3/uL RBC (4.60-5.80) X10*6/uL Hgb (14.0-18.0) g/dl Hct (42.0-52.0) % MCV (80.0-98.0) fL MCH (27.0-33.0) pg MCHC (31.0-36.0) g/dl RDW (11.0-16.0) % Plt Count (160-400) X10*3/uL MPV (9.4-12.4) fL Immature Gran % (Auto) (0.0-0.4) % Neut % (Auto) (45-73) % Lymph % (Auto) (20-40) % [place] % (Auto) (2-11) % Eos % (Auto) (0-4) % Baso % (Auto) (0-2) % Lymph # (Auto) (1.2-4.9) X10*3/uL [place] # (Auto) (0.1-1.2) X10*3/uL Eos # (Auto) (0.0-0.4) X10*3/uL Baso # (Auto) (0.0-0.2) X10*3/uL Abs Immat Gran (auto) (0.00-0.03) X10*3/uL Absolute Neuts (auto) (2.0-8.3) x10*3/uL Absolute Nucleated RBC (0.0-0.012) X10*3/uL Nucleated RBC % (auto) (0.0-0.2) /100WBC PT 12.9 (10.0-13.1) SEC INR 1.1 (0.9-1.1) VBG pH (7.32-7.43) VBG pCO2 mmHg VBG pO2 mmHg VBG HCO3 (22-26) mmol/L VBG O2 Saturation % VBG Base Excess mmol/L Sodium (135-145) mmol/L Potassium (3.3-5.1) mmol/L Chloride (96-108) mmol/L Carbon Dioxide (22-29) mmol/L Anion Gap (12-20) BUN (9-16) mg/dL Creatinine (0.5-1.4) mg/dL Estim Creat Clear Calc Estimated GFR POC Glucose (60-115) mg/dL Random Glucose (60-115) mg/dL Calcium (8.4-10.2) mg/dL Magnesium (1.6-2.6) mg/dL Total Bilirubin (0.0-1.0) mg/dL AST (5-37) U/L ALT (0-40) U/L Alkaline Phosphatase (39-117) U/L Total Creatine Kinase Troponin I High Sens 4.5 (<3.5-35.0) ng/L Total Protein (6.5-8.0) g/dL Albumin (3.5-5.0) g/dL Lipase (8-78) U/L Urine Color Urine Appearance Urine pH (5.0-9.0) Ur Specific [place] (1.005-1.025) Urine Protein (Neg-Trace) mg/dL Urine Glucose (UA) (Negative) mg/dL Urine Ketones (Negative) mg/dL Urine Blood (Negative) Urine Nitrite (Negative) Ur Leukocyte Esterase (Negative) Urine RBC (0-2) /HPF Urine WBC (0-5) /HPF Ur Squamous Epith Cells (0-2) /HPF Urine Bacteria (None Seen) Hyaline Casts (0-2) /LPF Salicylates (15-30) mg/dL Urine Opiates Screen (Not Detect) Urine Fentanyl Screen (Not Detect) Acetaminophen (<30) mcg/mL Ur Barbiturates Screen (Not Detect) Ur Phencyclidine Scrn (Not Detect) Ur Amphetamines Screen (Not Detect) U Benzodiazepines Scrn (Not Detect) Urine Cocaine Screen (Not Detect) U Marijuana (THC) Screen (Not Detect) Ethyl Alcohol Acetone, Qual (Negative) COVID-19 (ALLEN) Negative (Negative) COVID-19 Clin Com See Note 09/26/22 09/26/22 09/26/22 Range/Units 02:45 05:12 05:12 WBC (4.8-10.8) X10*3/uL RBC (4.60-5.80) X10*6/uL Hgb (14.0-18.0) g/dl Hct (42.0-52.0) % MCV (80.0-98.0) fL MCH (27.0-33.0) pg MCHC (31.0-36.0) g/dl RDW (11.0-16.0) % Plt Count (160-400) X10*3/uL MPV (9.4-12.4) fL Immature Gran % (Auto) (0.0-0.4) % Neut % (Auto) (45-73) % Lymph % (Auto) (20-40) % [place] % (Auto) (2-11) % Eos % (Auto) (0-4) % Baso % (Auto) (0-2) % Lymph # (Auto) (1.2-4.9) X10*3/uL [place] # (Auto) (0.1-1.2) X10*3/uL Eos # (Auto) (0.0-0.4) X10*3/uL Baso # (Auto) (0.0-0.2) X10*3/uL Abs Immat Gran (auto) (0.00-0.03) X10*3/uL Absolute Neuts (auto) (2.0-8.3) x10*3/uL Absolute Nucleated RBC (0.0-0.012) X10*3/uL Nucleated RBC % (auto) (0.0-0.2) /100WBC PT (10.0-13.1) SEC INR (0.9-1.1) VBG pH (7.32-7.43) VBG pCO2 mmHg VBG pO2 mmHg VBG HCO3 (22-26) mmol/L VBG O2 Saturation % VBG Base Excess mmol/L Sodium (135-145) mmol/L Potassium (3.3-5.1) mmol/L Chloride (96-108) mmol/L Carbon Dioxide (22-29) mmol/L Anion Gap (12-20) BUN (9-16) mg/dL Creatinine (0.5-1.4) mg/dL Estim Creat Clear Calc Estimated GFR POC Glucose (60-115) mg/dL Random Glucose (60-115) mg/dL Calcium (8.4-10.2) mg/dL Magnesium (1.6-2.6) mg/dL Total Bilirubin (0.0-1.0) mg/dL AST (5-37) U/L ALT (0-40) U/L Alkaline Phosphatase (39-117) U/L Total Creatine Kinase Troponin I High Sens (<3.5-35.0) ng/L Total Protein (6.5-8.0) g/dL Albumin (3.5-5.0) g/dL Lipase (8-78) U/L Urine Color Yellow Urine Appearance Clear Urine pH 5.5 (5.0-9.0) Ur Specific [place] >= 1.030 H (1.005-1.025) Urine Protein 30 (1+) H (Neg-Trace) mg/dL Urine Glucose (UA) >=1000 H (Negative) mg/dL Urine Ketones >=160 (Negative) mg/dL Urine Blood Negative (Negative) Urine Nitrite Negative (Negative) Ur Leukocyte Esterase Negative (Negative) Urine RBC 0-2 (0-2) /HPF Urine WBC 0-5 (0-5) /HPF Ur Squamous Epith Cells 0-2 (0-2) /HPF Urine Bacteria None Seen (None Seen) Hyaline Casts 0-2 (0-2) /LPF Salicylates (15-30) mg/dL Urine Opiates Screen Not Detected (Not Detect) Urine Fentanyl Screen Not Detected (Not Detect) Acetaminophen (<30) mcg/mL Ur Barbiturates Screen POSITIVE H (Not Detect) Ur Phencyclidine Scrn Not Detected (Not Detect) Ur Amphetamines Screen Not Detected (Not Detect) U Benzodiazepines Scrn Not Detected (Not Detect) Urine Cocaine Screen Not Detected (Not Detect) U Marijuana (THC) Screen Not Detected (Not Detect) Ethyl Alcohol Acetone, Qual Small H (Negative) COVID-19 (ALLEN) (Negative) COVID-19 Clin Com 09/26/22 09/26/22 Range/Units 06:05 06:07 WBC (4.8-10.8) X10*3/uL RBC (4.60-5.80) X10*6/uL Hgb (14.0-18.0) g/dl Hct (42.0-52.0) % MCV (80.0-98.0) fL MCH (27.0-33.0) pg MCHC (31.0-36.0) g/dl RDW (11.0-16.0) % Plt Count (160-400) X10*3/uL MPV (9.4-12.4) fL Immature Gran % (Auto) (0.0-0.4) % Neut % (Auto) (45-73) % Lymph % (Auto) (20-40) % [place] % (Auto) (2-11) % Eos % (Auto) (0-4) % Baso % (Auto) (0-2) % Lymph # (Auto) (1.2-4.9) X10*3/uL [place] # (Auto) (0.1-1.2) X10*3/uL Eos # (Auto) (0.0-0.4) X10*3/uL Baso # (Auto) (0.0-0.2) X10*3/uL Abs Immat Gran (auto) (0.00-0.03) X10*3/uL Absolute Neuts (auto) (2.0-8.3) x10*3/uL Absolute Nucleated RBC (0.0-0.012) X10*3/uL Nucleated RBC % (auto) (0.0-0.2) /100WBC PT (10.0-13.1) SEC INR (0.9-1.1) VBG pH 7.38 (7.32-7.43) VBG pCO2 22 mmHg VBG pO2 121 mmHg VBG HCO3 13 L (22-26) mmol/L VBG O2 Saturation 100.0 % VBG Base Excess -9.0 mmol/L Sodium (135-145) mmol/L Potassium (3.3-5.1) mmol/L Chloride (96-108) mmol/L Carbon Dioxide (22-29) mmol/L Anion Gap (12-20) BUN (9-16) mg/dL Creatinine (0.5-1.4) mg/dL Estim Creat Clear Calc Estimated GFR POC Glucose 289 H (60-115) mg/dL Random Glucose (60-115) mg/dL Calcium (8.4-10.2) mg/dL Magnesium (1.6-2.6) mg/dL Total Bilirubin (0.0-1.0) mg/dL AST (5-37) U/L ALT (0-40) U/L Alkaline Phosphatase (39-117) U/L Total Creatine Kinase Troponin I High Sens (<3.5-35.0) ng/L Total Protein (6.5-8.0) g/dL Albumin (3.5-5.0) g/dL Lipase (8-78) U/L Urine Color Urine Appearance Urine pH (5.0-9.0) Ur Specific [place] (1.005-1.025) Urine Protein (Neg-Trace) mg/dL Urine Glucose (UA) (Negative) mg/dL Urine Ketones (Negative) mg/dL Urine Blood (Negative) Urine Nitrite (Negative) Ur Leukocyte Esterase (Negative) Urine RBC (0-2) /HPF Urine WBC (0-5) /HPF Ur Squamous Epith Cells (0-2) /HPF Urine Bacteria (None Seen) Hyaline Casts (0-2) /LPF Salicylates (15-30) mg/dL Urine Opiates Screen (Not Detect) Urine Fentanyl Screen (Not Detect) Acetaminophen (<30) mcg/mL Ur Barbiturates Screen (Not Detect) Ur Phencyclidine Scrn (Not Detect) Ur Amphetamines Screen (Not Detect) U Benzodiazepines Scrn (Not Detect) Urine Cocaine Screen (Not Detect) U Marijuana (THC) Screen (Not Detect) Ethyl Alcohol Acetone, Qual (Negative) COVID-19 (ALLEN) (Negative) COVID-19 Clin Com <SUSIE Rodriguez - Last Filed: 09/26/22 01:20> Lab Results 09/25/22 09/25/22 09/26/22 Range/Units 23:09 23:09 02:45 WBC 4.2 L (4.8-10.8) X10*3/uL RBC 3.58 L (4.60-5.80) X10*6/uL Hgb 11.4 L (14.0-18.0) g/dl Hct 32.3 L (42.0-52.0) % MCV 90.2 (80.0-98.0) fL MCH 31.8 (27.0-33.0) pg MCHC 35.3 (31.0-36.0) g/dl RDW 13.4 (11.0-16.0) % Plt Count 70 L D (160-400) X10*3/uL MPV 11.0 (9.4-12.4) fL Immature Gran % (Auto) 0.5 H (0.0-0.4) % Neut % (Auto) 69.1 (45-73) % Lymph % (Auto) 24.9 (20-40) % [place] % (Auto) 5.3 (2-11) % Eos % (Auto) 0.0 (0-4) % Baso % (Auto) 0.2 (0-2) % Lymph # (Auto) 1.0 L (1.2-4.9) X10*3/uL [place] # (Auto) 0.2 (0.1-1.2) X10*3/uL Eos # (Auto) 0.0 (0.0-0.4) X10*3/uL Baso # (Auto) 0.0 (0.0-0.2) X10*3/uL Abs Immat Gran (auto) 0.02 (0.00-0.03) X10*3/uL Absolute Neuts (auto) 2.9 (2.0-8.3) x10*3/uL Absolute Nucleated RBC 0.000 (0.0-0.012) X10*3/uL Nucleated RBC % (auto) 0.0 (0.0-0.2) /100WBC PT (10.0-13.1) SEC INR (0.9-1.1) VBG pH (7.32-7.43) VBG pCO2 mmHg VBG pO2 mmHg VBG HCO3 (22-26) mmol/L VBG O2 Saturation % VBG Base Excess mmol/L Sodium 130 L (135-145) mmol/L Potassium 3.7 (3.3-5.1) mmol/L Chloride 84 L (96-108) mmol/L Carbon Dioxide 15 L (22-29) mmol/L Anion Gap 35 H (12-20) BUN 12 (9-16) mg/dL Creatinine 1.14 (0.5-1.4) mg/dL Estim Creat Clear Calc 73.0 Estimated GFR > 60 POC Glucose (60-115) mg/dL Random Glucose 341 H (60-115) mg/dL Calcium 8.7 (8.4-10.2) mg/dL Magnesium 2.3 (1.6-2.6) mg/dL Total Bilirubin 1.3 H (0.0-1.0) mg/dL AST 114 H (5-37) U/L ALT 67 H (0-40) U/L Alkaline Phosphatase 265 H (39-117) U/L Total Creatine Kinase Cancelled 108 Troponin I High Sens (<3.5-35.0) ng/L Total Protein 7.4 (6.5-8.0) g/dL Albumin 4.0 (3.5-5.0) g/dL Lipase < 4 L (8-78) U/L Urine Color Urine Appearance Urine pH (5.0-9.0) Ur Specific [place] (1.005-1.025) Urine Protein (Neg-Trace) mg/dL Urine Glucose (UA) (Negative) mg/dL Urine Ketones (Negative) mg/dL Urine Blood (Negative) Urine Nitrite (Negative) Ur Leukocyte Esterase (Negative) Urine RBC (0-2) /HPF Urine WBC (0-5) /HPF Ur Squamous Epith Cells (0-2) /HPF Urine Bacteria (None Seen) Hyaline Casts (0-2) /LPF Salicylates < 5.0 L (15-30) mg/dL Urine Opiates Screen (Not Detect) Urine Fentanyl Screen (Not Detect) Acetaminophen < 17 (<30) mcg/mL Ur Barbiturates Screen (Not Detect) Ur Phencyclidine Scrn (Not Detect) Ur Amphetamines Screen (Not Detect) U Benzodiazepines Scrn (Not Detect) Urine Cocaine Screen (Not Detect) U Marijuana (THC) Screen (Not Detect) Ethyl Alcohol Cancelled < 10 Acetone, Qual (Negative) COVID-19 (ALLEN) (Negative) COVID-19 Clin Com 09/26/22 09/26/22 09/26/22 Range/Units 02:45 02:45 02:45 WBC (4.8-10.8) X10*3/uL RBC (4.60-5.80) X10*6/uL Hgb (14.0-18.0) g/dl Hct (42.0-52.0) % MCV (80.0-98.0) fL MCH (27.0-33.0) pg MCHC (31.0-36.0) g/dl RDW (11.0-16.0) % Plt Count (160-400) X10*3/uL MPV (9.4-12.4) fL Immature Gran % (Auto) (0.0-0.4) % Neut % (Auto) (45-73) % Lymph % (Auto) (20-40) % [place] % (Auto) (2-11) % Eos % (Auto) (0-4) % Baso % (Auto) (0-2) % Lymph # (Auto) (1.2-4.9) X10*3/uL [place] # (Auto) (0.1-1.2) X10*3/uL Eos # (Auto) (0.0-0.4) X10*3/uL Baso # (Auto) (0.0-0.2) X10*3/uL Abs Immat Gran (auto) (0.00-0.03) X10*3/uL Absolute Neuts (auto) (2.0-8.3) x10*3/uL Absolute Nucleated RBC (0.0-0.012) X10*3/uL Nucleated RBC % (auto) (0.0-0.2) /100WBC PT 12.9 (10.0-13.1) SEC INR 1.1 (0.9-1.1) VBG pH (7.32-7.43) VBG pCO2 mmHg VBG pO2 mmHg VBG HCO3 (22-26) mmol/L VBG O2 Saturation % VBG Base Excess mmol/L Sodium (135-145) mmol/L Potassium (3.3-5.1) mmol/L Chloride (96-108) mmol/L Carbon Dioxide (22-29) mmol/L Anion Gap (12-20) BUN (9-16) mg/dL Creatinine (0.5-1.4) mg/dL Estim Creat Clear Calc Estimated GFR POC Glucose (60-115) mg/dL Random Glucose (60-115) mg/dL Calcium (8.4-10.2) mg/dL Magnesium (1.6-2.6) mg/dL Total Bilirubin (0.0-1.0) mg/dL AST (5-37) U/L ALT (0-40) U/L Alkaline Phosphatase (39-117) U/L Total Creatine Kinase Troponin I High Sens 4.5 (<3.5-35.0) ng/L Total Protein (6.5-8.0) g/dL Albumin (3.5-5.0) g/dL Lipase (8-78) U/L Urine Color Urine Appearance Urine pH (5.0-9.0) Ur Specific [place] (1.005-1.025) Urine Protein (Neg-Trace) mg/dL Urine Glucose (UA) (Negative) mg/dL Urine Ketones (Negative) mg/dL Urine Blood (Negative) Urine Nitrite (Negative) Ur Leukocyte Esterase (Negative) Urine RBC (0-2) /HPF Urine WBC (0-5) /HPF Ur Squamous Epith Cells (0-2) /HPF Urine Bacteria (None Seen) Hyaline Casts (0-2) /LPF Salicylates (15-30) mg/dL Urine Opiates Screen (Not Detect) Urine Fentanyl Screen (Not Detect) Acetaminophen (<30) mcg/mL Ur Barbiturates Screen (Not Detect) Ur Phencyclidine Scrn (Not Detect) Ur Amphetamines Screen (Not Detect) U Benzodiazepines Scrn (Not Detect) Urine Cocaine Screen (Not Detect) U Marijuana (THC) Screen (Not Detect) Ethyl Alcohol Acetone, Qual (Negative) COVID-19 (ALLEN) Negative (Negative) COVID-19 Clin Com See Note 09/26/22 09/26/22 09/26/22 Range/Units 02:45 05:12 05:12 WBC (4.8-10.8) X10*3/uL RBC (4.60-5.80) X10*6/uL Hgb (14.0-18.0) g/dl Hct (42.0-52.0) % MCV (80.0-98.0) fL MCH (27.0-33.0) pg MCHC (31.0-36.0) g/dl RDW (11.0-16.0) % Plt Count (160-400) X10*3/uL MPV (9.4-12.4) fL Immature Gran % (Auto) (0.0-0.4) % Neut % (Auto) (45-73) % Lymph % (Auto) (20-40) % [place] % (Auto) (2-11) % Eos % (Auto) (0-4) % Baso % (Auto) (0-2) % Lymph # (Auto) (1.2-4.9) X10*3/uL [place] # (Auto) (0.1-1.2) X10*3/uL Eos # (Auto) (0.0-0.4) X10*3/uL Baso # (Auto) (0.0-0.2) X10*3/uL Abs Immat Gran (auto) (0.00-0.03) X10*3/uL Absolute Neuts (auto) (2.0-8.3) x10*3/uL Absolute Nucleated RBC (0.0-0.012) X10*3/uL Nucleated RBC % (auto) (0.0-0.2) /100WBC PT (10.0-13.1) SEC INR (0.9-1.1) VBG pH (7.32-7.43) VBG pCO2 mmHg VBG pO2 mmHg VBG HCO3 (22-26) mmol/L VBG O2 Saturation % VBG Base Excess mmol/L Sodium (135-145) mmol/L Potassium (3.3-5.1) mmol/L Chloride (96-108) mmol/L Carbon Dioxide (22-29) mmol/L Anion Gap (12-20) BUN (9-16) mg/dL Creatinine (0.5-1.4) mg/dL Estim Creat Clear Calc Estimated GFR POC Glucose (60-115) mg/dL Random Glucose (60-115) mg/dL Calcium (8.4-10.2) mg/dL Magnesium (1.6-2.6) mg/dL Total Bilirubin (0.0-1.0) mg/dL AST (5-37) U/L ALT (0-40) U/L Alkaline Phosphatase (39-117) U/L Total Creatine Kinase Troponin I High Sens (<3.5-35.0) ng/L Total Protein (6.5-8.0) g/dL Albumin (3.5-5.0) g/dL Lipase (8-78) U/L Urine Color Yellow Urine Appearance Clear Urine pH 5.5 (5.0-9.0) Ur Specific [place] >= 1.030 H (1.005-1.025) Urine Protein 30 (1+) H (Neg-Trace) mg/dL Urine Glucose (UA) >=1000 H (Negative) mg/dL Urine Ketones >=160 (Negative) mg/dL Urine Blood Negative (Negative) Urine Nitrite Negative (Negative) Ur Leukocyte Esterase Negative (Negative) Urine RBC 0-2 (0-2) /HPF Urine WBC 0-5 (0-5) /HPF Ur Squamous Epith Cells 0-2 (0-2) /HPF Urine Bacteria None Seen (None Seen) Hyaline Casts 0-2 (0-2) /LPF Salicylates (15-30) mg/dL Urine Opiates Screen Not Detected (Not Detect) Urine Fentanyl Screen Not Detected (Not Detect) Acetaminophen (<30) mcg/mL Ur Barbiturates Screen POSITIVE H (Not Detect) Ur Phencyclidine Scrn Not Detected (Not Detect) Ur Amphetamines Screen Not Detected (Not Detect) U Benzodiazepines Scrn Not Detected (Not Detect) Urine Cocaine Screen Not Detected (Not Detect) U Marijuana (THC) Screen Not Detected (Not Detect) Ethyl Alcohol Acetone, Qual Small H (Negative) COVID-19 (ALLEN) (Negative) COVID-19 Clin Com 09/26/22 09/26/22 Range/Units 06:05 06:07 WBC (4.8-10.8) X10*3/uL RBC (4.60-5.80) X10*6/uL Hgb (14.0-18.0) g/dl Hct (42.0-52.0) % MCV (80.0-98.0) fL MCH (27.0-33.0) pg MCHC (31.0-36.0) g/dl RDW (11.0-16.0) % Plt Count (160-400) X10*3/uL MPV (9.4-12.4) fL Immature Gran % (Auto) (0.0-0.4) % Neut % (Auto) (45-73) % Lymph % (Auto) (20-40) % [place] % (Auto) (2-11) % Eos % (Auto) (0-4) % Baso % (Auto) (0-2) % Lymph # (Auto) (1.2-4.9) X10*3/uL [place] # (Auto) (0.1-1.2) X10*3/uL Eos # (Auto) (0.0-0.4) X10*3/uL Baso # (Auto) (0.0-0.2) X10*3/uL Abs Immat Gran (auto) (0.00-0.03) X10*3/uL Absolute Neuts (auto) (2.0-8.3) x10*3/uL Absolute Nucleated RBC (0.0-0.012) X10*3/uL Nucleated RBC % (auto) (0.0-0.2) /100WBC PT (10.0-13.1) SEC INR (0.9-1.1) VBG pH 7.38 (7.32-7.43) VBG pCO2 22 mmHg VBG pO2 121 mmHg VBG HCO3 13 L (22-26) mmol/L VBG O2 Saturation 100.0 % VBG Base Excess -9.0 mmol/L Sodium (135-145) mmol/L Potassium (3.3-5.1) mmol/L Chloride (96-108) mmol/L Carbon Dioxide (22-29) mmol/L Anion Gap (12-20) BUN (9-16) mg/dL Creatinine (0.5-1.4) mg/dL Estim Creat Clear Calc Estimated GFR POC Glucose 289 H (60-115) mg/dL Random Glucose (60-115) mg/dL Calcium (8.4-10.2) mg/dL Magnesium (1.6-2.6) mg/dL Total Bilirubin (0.0-1.0) mg/dL AST (5-37) U/L ALT (0-40) U/L Alkaline Phosphatase (39-117) U/L Total Creatine Kinase Troponin I High Sens (<3.5-35.0) ng/L Total Protein (6.5-8.0) g/dL Albumin (3.5-5.0) g/dL Lipase (8-78) U/L Urine Color Urine Appearance Urine pH (5.0-9.0) Ur Specific [place] (1.005-1.025) Urine Protein (Neg-Trace) mg/dL Urine Glucose (UA) (Negative) mg/dL Urine Ketones (Negative) mg/dL Urine Blood (Negative) Urine Nitrite (Negative) Ur Leukocyte Esterase (Negative) Urine RBC (0-2) /HPF Urine WBC (0-5) /HPF Ur Squamous Epith Cells (0-2) /HPF Urine Bacteria (None Seen) Hyaline Casts (0-2) /LPF Salicylates (15-30) mg/dL Urine Opiates Screen (Not Detect) Urine Fentanyl Screen (Not Detect) Acetaminophen (<30) mcg/mL Ur Barbiturates Screen (Not Detect) Ur Phencyclidine Scrn (Not Detect) Ur Amphetamines Screen (Not Detect) U Benzodiazepines Scrn (Not Detect) Urine Cocaine Screen (Not Detect) U Marijuana (THC) Screen (Not Detect) Ethyl Alcohol Acetone, Qual (Negative) COVID-19 (ALLEN) (Negative) COVID-19 Clin Com <Kodi Roberts MD - Last Filed: 09/26/22 07:33> Radiology Impression Discussion of test interpretation with radiology: I have reviewed the radiologist's reading. <SUSIE Rodriguez - Last Filed: 09/26/22 01:20> External Record Review External record reviewed: Inpatient record, Office record, Outpatient record, Prior outpatient labs, Prior outpatient radiology, Primary care record, Outside ED record and Other <SUSIE Rodriguez - Last Filed: 09/26/22 01:20> Core Measures AMI core measures followed: Yes <SUSIE Rodriguez - Last Filed: 09/26/22 01:20> Measure exclusions: not indicated <SUSIE Rodriguez - Last Filed: 09/26/22 01:20> Critical Care Time Critical Care Time Critical Care Time: No <SUSIE Rodriguez - Last Filed: 09/26/22 01:20> Discharge Plan Discharge Clinical Impression: Fracture, ribs, Concussion with loss of consciousness, Fall, Laceration of head, Alcohol withdrawal, Alcoholic ketoacidosis <SUSIE Rodriguez - Last Filed: 09/26/22 01:20> Patient Disposition: Admitted As Inpatient <SUSIE Rodriguez - Last Filed: 09/26/22 01:20>
[2022-09-25 22:48] VITALS: BP 130/107; PULSE 104; RESP 18; TEMP 36.4; O2SAT 99; BMI 21.1
[2022-09-25 23:21] LABS: Basophils Percent Auto 0.2 % (0-2); Hemoglobin 11.4 g/dl (14.0-18.0); Imm Gran Abs Auto 0.02 X10*3/uL (0.00-0.03); Imm Gran Pct Auto 0.5 % (0.0-0.4); Monocytes Absolute Auto 0.2 X10*3/uL (0.1-1.2); Monocytes Percent Auto 5.3 % (2-11); PLT CLUMP 1; SCAN SMEAR FLAG 1
[2022-09-25 23:23] LABS: Hematocrit 32.3 % (42.0-52.0); Lymphocytes Percent Auto 24.9 % (20-40); Mean Corpuscular HGB Conc 35.3 g/dl (31.0-36.0); Mean Corpuscular Hemoglobin 31.8 pg (27.0-33.0); Mean Corpuscular Volume 90.2 fL (80.0-98.0); Neutrophils Absolute Auto 2.9 x10*3/uL (2.0-8.3); Neutrophils Percent Auto 69.1 % (45-73); Red Blood Count 3.58 X10*6/uL (4.60-5.80); Red Cell Distribution Width 13.4 % (11.0-16.0)
[2022-09-25 23:25] LABS: MANUAL DIFF FLAG NO; White Blood Count 4.2 X10*3/uL (4.8-10.8)
[2022-09-25 23:41] LABS: Platelet Count 70 X10*3/uL (160-400)
[2022-09-26] VITALS (8 sets, daily range): BP systolic 102–156; BP diastolic 74–95; PULSE 87–114; RESP 16–18; TEMP 36.3–36.9; O2SAT 96–100
[2022-09-26] MEDS: iohexoL 350 MG/ML 100 ML INFUS..BTL 85 ML IV (00:08)
[2022-09-26 02:56] LABS: INTERNATIONAL NORM RATIO 1.1 (0.9-1.1); Prothrombin Time 12.9 SEC (10.0-13.1)
[2022-09-26 03:12] LABS: COVID-19 Test Negative (Negative); IDNOW Serial# BCCEAD1C
[2022-09-26] MEDS: PHENobarbitaL sodium 130 MG/ML IM ONCE 247 MG IM (03:20)
[2022-09-26] MEDS: LORazepam 2 MG/ML VIAL 1 MG IVPUSH (03:21)
[2022-09-26] MEDS: Thiamine HCL 500 MG in 0.9 % Sodium Chloride 100 ML 210 MG IV (03:21)
[2022-09-26 03:22] LABS: Troponin-I High Sensitivity 4.5 ng/L (<3.5-35.0)
[2022-09-26] MEDS: Folic Acid 1 MG TABLET PO ×2 (03:22→08:26)
[2022-09-26] MEDS: 0.9 % Sodium Chloride 1,000 ML 999 ML IV ×2 (03:23→06:10)
[2022-09-26 03:32] LABS: Acetaminophen LAB < 17 mcg/mL (<30); Alanine Aminotransferase 67 U/L (0-40); Alkaline Phosphatase 265 U/L (39-117); Anion Gap 35 (12-20); Aspartate Amino Transferase 114 U/L (5-37); Bilirubin Total 1.3 mg/dL (0.0-1.0); Blood Urea Nitrogen 12 mg/dL (9-16); Calcium 8.7 mg/dL (8.4-10.2); Carbon Dioxide 15 mmol/L (22-29); Chloride 84 mmol/L (96-108); Estimated Glomerular Filt Rate > 60; Ethanol < 10 mg/dL; Glucose Random 341 mg/dL (60-115); Lipase < 4 U/L (8-78); Magnesium 2.3 mg/dL (1.6-2.6); Potassium 3.7 mmol/L (3.3-5.1); Salicylate < 5.0 mg/dL (15-30); Sodium 130 mmol/L (135-145); Total Protein 7.4 g/dL (6.5-8.0)
--- NOTE | 2022-09-26 04:31 | PC.NURSE ---
I assumed nursing care of this pt upon his arrival to ed bed 12 from [facility]. The pt presented to the ED after he fell at home. He states he became very unsteady and fell, striking his head on furniture. He presented with dried blood on his face, which we cleansed. The pt informed provider Sienna that he would like to sign out AMA. Sienna discussed this with the pt and made discharge papers for me to give to the patient. At that time Sienna's shift was demi, and she left the ED. As I went to the patients' room to review AMA papers with him he informed me that he would like to be admitted because he wa sunsure how he would be safe at home due to severe unsteadiness. I informed Clint PAGE of this and he contacted the hospitalist and began the admission process. The pt is drowsy. When awake he is oriented x 3, makes eye contact with RN and is calm and cooperative. At request of Clint PAGE i attempted to perform orthostatic VS. The pt sat on the edge of the bed from a lying poistion and became very tremulous. he attempted to stand unsuccessfully - he was swaying and felt and appeared very unsteady when attempting to stand. I immediately assisted the pt back into bed and informed Clint PAGE. At this time the pt is aware that he is TBADm and is waiting a bed assignment.
[2022-09-26 04:45] LABS: Acetone, serum QL Small (Negative)
[2022-09-26 05:19] LABS: Appearance Urine Clear; Color Urine Yellow; Glucose Urine UA >=1000 mg/dL (Negative); Leukocyte Esterase Urine Negative (Negative); Nitrite Urine Negative (Negative); PH 5.5 (5.0-9.0); Specific Gravity - Urine >= 1.030 (1.005-1.025); UMIC TRIGGER UACC YES; Urine Blood Negative (Negative); Urine Ketones >=160 mg/dL (Negative); Urine Protein 30 (1+) mg/dL (Neg-Trace)
[2022-09-26 05:24] LABS: Bacteria Urine None Seen (None Seen); Hyaline Casts Urine 0-2 /LPF (0-2); RBC Urine 0-2 /HPF (0-2); Squamous Epithelial Cell Urine 0-2 /HPF (0-2); WBC Urine 0-5 /HPF (0-5)
[2022-09-26 05:31] LABS: Amphetamine Screen Urine Not Detected (Not Detect); Barbiturates, Urine POSITIVE (Not Detect); Benzodiazepines Screen Urine Not Detected (Not Detect); Cannabinoid Screen Urine Not Detected (Not Detect); Cocaine Screen Urine Not Detected (Not Detect); Fentanyl, urine Not Detected (Not Detect); Opiate Screen Urine Not Detected (Not Detect); Phencyclidine Screen Urine Not Detected (Not Detect)
[2022-09-26 06:10] LABS: Venous Blood Gas Refer to POC result
[2022-09-26 06:11] LABS: Glucose, Whole Blood 289 mg/dL (60-115)
[2022-09-26 06:11] LABS: VBG HCO3 13 mmol/L (22-26); VBG pCO2 22 mmHg; VBG pH 7.38 (7.32-7.43); VBG pO2 121 mmHg
[2022-09-26] MEDS: Insulin Regular, Human 100 UNIT/ML 3 ML VIAL IVPUSH (06:11)
[2022-09-26] MEDS: PHENobarbitaL sodium 130 MG/ML VIAL IM Q3Hx2 182 MG IM ×2 (06:13→08:25)
--- NOTE | 2022-09-26 06:39 | P.HPHOSP_ITS ---
History of Present Illness Date of Service: 09/26/22 Chief Complaint: syncope this is a 41-year-old male with past medical history of diabetes, bipolar disorder, alcohol abuse, presents to the hospital with complaints of syncopal episodes. Patient reports that he has been falling and syncopized several times since . Patient reports today was the worst where he had his head and was bleeding from a laceration on his head. Patient reports no appetite, has been drinking, last drink was . Reports auditory and visual hallucinations. Patient states the syncopal episodes last few minutes, no biting of his tongue, did lose his bowel control today. Denies any change in vision, no chest pain, no shortness of breath, reports generalized abdominal pain, no urinary symptoms and no lower extremity edema. On arrival to the ED patient hemodynamically stable with a heart rate of 104, stable blood pressure Labs are significant for WBC count of 4.2, hemoglobin of 11.4, hematocrit 32.3, sodium of 130, chloride of 84, has an anion gap of 35, pH of 7.38, pCO2 of 22, bicarb of 15, glucose of 289, bili of 1.3, AST of 114, ALT of 67, lipase less than 4, urine is negative for acute infection, salicylate level as some 5, urine barbiturates positive, small acid stones, Negative alcohol level chest CT shows fractures of anterolateral left 7th and 8th rib which appears subcu, no other acute traumatic injuries identified in the chest abdomen or pelvis, Head CT shows no acute intracranial abnormality Review of Systems Review of Systems: Yes all other systems are reviewed and are negative [facility] Medical History Alcohol use disorder Bacteremia Bipolar disorder 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 Mother Diabetes Surgical History No pertinent past surgical history Social History Household Members: None Household Members Other:: with dog Housing: Apartment Do you presently have visiting nurse or other home services: No Alcohol intake: never Patient Tobacco Use Status: Never used Tobacco Smoked in Last 30 Days: No e-Cigarette/Vaping Use: Never Used Second Hand Smoke Exposure: No Use of substances other than those prescribed or required for medical reasons: Yes Advance Directives: Yes Advance Directives on File: Yes Advance Directives Date on File: 02/07/22 Current occupational status: employed Meds Allergies Allergy/AdvReac Type Severity Reaction Status Date / Time meropenem [MEROPENEM] Allergy Unknown SWELLING Verified 09/25/22 22:45 penicillin G procaine Allergy Unknown itching Verified 09/25/22 22:45 Penicillins [PENICILLINS] Allergy Unknown SWELLING Verified 09/25/22 22:45 Active Medications: Current Medications Pharmacy Consult (Consult Rx Perform Med Rec) 1 each MISCELLANE ONCE PRN PRN Reason: Consult order Pharmacy Consult (Consult Rx Etoh Phenob Im/Po) 1 each MISCELLANE ONCE PRN; Protocol PRN Reason: Consult order Phenobarbital Sodium (Phenobarbital Sodium 130 Mg/Ml Vial Im Q3hx2) 182 mg IM Q3H MAINOR Stop: 09/26/22 09:01 Last Admin: 09/26/22 06:13 Dose: 182 mg Home Medications Medication Instructions Recorded Confirmed Last Taken Type clonidine HCl 0.2 mg tablet 0.2 mg PO BID 11/11/20 09/04/22 Unknown History trazodone 100 mg tablet 200 mg PO BEDTIME 11/11/20 09/04/22 Unknown History lamotrigine 200 mg tablet 200 mg PO BID 01/28/22 09/04/22 Unknown History citalopram 40 mg tablet 40 mg PO DAILY 02/08/22 09/04/22 Unknown History folic acid 1 mg tablet 1 mg PO DAILY 02/08/22 09/04/22 Unknown History magnesium oxide 400 mg (241.3 mg 400 mg PO BID 02/08/22 09/04/22 Unknown History magnesium) tablet thiamine HCl (vitamin B1) 100 mg 100 mg PO DAILY 02/08/22 09/04/22 Unknown History tablet zolpidem 5 mg tablet 1 tab PO BEDTIME 03/14/22 09/04/22 Unknown History famotidine 20 mg tablet (Pepcid AC) 20 mg PO DAILY 05/21/22 09/04/22 Unknown History insulin aspart U-100 100 unit/mL 0 sliding scale dose subcut QIDACHS 06/12/22 09/04/22 Unknown History (3 mL) subcutaneous pen (Novolog FlexPen U-100 Insulin aspart) quetiapine 400 mg tablet 1 tab PO BEDTIME 06/12/22 09/04/22 Unknown History quetiapine 400 mg tablet,extended 1 tab PO QAM 06/12/22 09/04/22 Unknown History release 24 hr hydroxyzine pamoate 25 mg capsule 1 cap PO BID PRN anxiety 09/04/22 09/04/22 Unknown History Physical Exam Vital Signs and Narrative: Vital Signs: Last Vital Signs Temp 98.0 F 09/26/22 04:27 Pulse 103 H 09/26/22 04:27 Resp 16 09/26/22 04:27 BP 137/90 H 09/26/22 04:27 Pulse Ox 99 09/26/22 04:27 O2 Del Method 09/26/22 04:27 BMI result Body Mass Index 21.1 Const: Other: laceration on left eyelid General: cooperative and no acute distress Orientation/consciousness: patient oriented x3 Eyes: General: appearance normal, both eyes and all related structures Resp: Effort & Inspection: normal respiratory effort Auscultation: clear to auscultation bilaterally Cardio: Rate: regular rate Rhythm: regular rhythm GI: Palpation (GI): Soft to palpation Auscultation: normal bowel sounds Skin: General skin exam: no rashes or lesions noted Neuro: General: patient oriented x3 Cognition (Neuro): normal cognition Extrem: General: Yes normal to inspection and Yes no pedal edema Results Labs 09/25/22 23:09 09/26/22 02:45 Labs: Laboratory Results - last 24 hr 09/25/22 09/25/22 09/26/22 23:09 23:09 02:45 MCV 90.2 MCH 31.8 MCHC 35.3 RDW 13.4 Plt Count 70 L D MPV 11.0 Immature Gran % (Auto) 0.5 H Neut % (Auto) 69.1 Lymph % (Auto) 24.9 [place] % (Auto) 5.3 Eos % (Auto) 0.0 Baso % (Auto) 0.2 Lymph # (Auto) 1.0 L [place] # (Auto) 0.2 Eos # (Auto) 0.0 Baso # (Auto) 0.0 Abs Immat Gran (auto) 0.02 Absolute Neuts (auto) 2.9 Absolute Nucleated RBC 0.000 Nucleated RBC % (auto) 0.0 PT INR VBG pH VBG pCO2 VBG pO2 VBG HCO3 VBG O2 Saturation VBG Base Excess Anion Gap 35 H Estim Creat Clear Calc 73.0 Estimated GFR > 60 POC Glucose Random Glucose 341 H Calcium 8.7 Magnesium 2.3 Total Bilirubin 1.3 H AST 114 H ALT 67 H Alkaline Phosphatase 265 H Total Creatine Kinase Cancelled 108 Troponin I High Sens Total Protein 7.4 Albumin 4.0 Lipase < 4 L Urine Color Urine Appearance Urine pH Ur Specific Onset Urine Protein Urine Glucose (UA) Urine Ketones Urine Blood Urine Nitrite Ur Leukocyte Esterase Urine RBC Urine WBC Ur Squamous Epith Cells Urine Bacteria Hyaline Casts Salicylates < 5.0 L Urine Opiates Screen Urine Fentanyl Screen Acetaminophen < 17 Ur Barbiturates Screen Ur Phencyclidine Scrn Ur Amphetamines Screen U Benzodiazepines Scrn Urine Cocaine Screen U Marijuana (THC) Screen Ethyl Alcohol Cancelled < 10 Acetone, Qual COVID-19 (ALLEN) COVID-19 [employer] 09/26/22 09/26/22 09/26/22 02:45 02:45 02:45 MCV MCH MCHC RDW Plt Count MPV Immature Gran % (Auto) Neut % (Auto) Lymph % (Auto) [place] % (Auto) Eos % (Auto) Baso % (Auto) Lymph # (Auto) [place] # (Auto) Eos # (Auto) Baso # (Auto) Abs Immat Gran (auto) Absolute Neuts (auto) Absolute Nucleated RBC Nucleated RBC % (auto) PT 12.9 INR 1.1 VBG pH VBG pCO2 VBG pO2 VBG HCO3 VBG O2 Saturation VBG Base Excess Anion Gap Estim Creat Clear Calc Estimated GFR POC Glucose Random Glucose Calcium Magnesium Total Bilirubin AST ALT Alkaline Phosphatase Total Creatine Kinase Troponin I High Sens 4.5 Total Protein Albumin Lipase Urine Color Urine Appearance Urine pH Ur Specific Onset Urine Protein Urine Glucose (UA) Urine Ketones Urine Blood Urine Nitrite Ur Leukocyte Esterase Urine RBC Urine WBC Ur Squamous Epith Cells Urine Bacteria Hyaline Casts Salicylates Urine Opiates Screen Urine Fentanyl Screen Acetaminophen Ur Barbiturates Screen Ur Phencyclidine Scrn Ur Amphetamines Screen U Benzodiazepines Scrn Urine Cocaine Screen U Marijuana (THC) Screen Ethyl Alcohol Acetone, Qual COVID-19 (ALLEN) Negative COVID-19 [employer] See Note 0209/26/22 09/26/22 02:45 05:12 05:12 MCV MCH MCHC RDW Plt Count MPV Immature Gran % (Auto) Neut % (Auto) Lymph % (Auto) [place] % (Auto) Eos % (Auto) Baso % (Auto) Lymph # (Auto) [place] # (Auto) Eos # (Auto) Baso # (Auto) Abs Immat Gran (auto) Absolute Neuts (auto) Absolute Nucleated RBC Nucleated RBC % (auto) PT INR VBG pH VBG pCO2 VBG pO2 VBG HCO3 VBG O2 Saturation VBG Base Excess Anion Gap Estim Creat Clear Calc Estimated GFR POC Glucose Random Glucose Calcium Magnesium Total Bilirubin AST ALT Alkaline Phosphatase Total Creatine Kinase Troponin I High Sens Total Protein Albumin Lipase Urine Color Yellow Urine Appearance Clear Urine pH 5.5 Ur Specific Onset >= 1.030 H Urine Protein 30 (1+) H Urine Glucose (UA) >=1000 H Urine Ketones >=160 Urine Blood Negative Urine Nitrite Negative Ur Leukocyte Esterase Negative Urine RBC 0-2 Urine WBC 0-5 Ur Squamous Epith Cells 0-2 Urine Bacteria None Seen Hyaline Casts 0-2 Salicylates Urine Opiates Screen Not Detected Urine Fentanyl Screen Not Detected Acetaminophen Ur Barbiturates Screen POSITIVE H Ur Phencyclidine Scrn Not Detected Ur Amphetamines Screen Not Detected U Benzodiazepines Scrn Not Detected Urine Cocaine Screen Not Detected U Marijuana (THC) Screen Not Detected Ethyl Alcohol Acetone, Qual Small H COVID-19 (ALLEN) COVID-19 Clin Com 09/26/22 09/26/22 06:05 06:07 MCV MCH MCHC RDW Plt Count MPV Immature Gran % (Auto) Neut % (Auto) Lymph % (Auto) [place] % (Auto) Eos % (Auto) Baso % (Auto) Lymph # (Auto) [place] # (Auto) Eos # (Auto) Baso # (Auto) Abs Immat Gran (auto) Absolute Neuts (auto) Absolute Nucleated RBC Nucleated RBC % (auto) PT INR VBG pH 7.38 VBG pCO2 22 VBG pO2 121 VBG HCO3 13 L VBG O2 Saturation 100.0 VBG Base Excess -9.0 Anion Gap Estim Creat Clear Calc Estimated GFR POC Glucose 289 H Random Glucose Calcium Magnesium Total Bilirubin AST ALT Alkaline Phosphatase Total Creatine Kinase Troponin I High Sens Total Protein Albumin Lipase Urine Color Urine Appearance Urine pH Ur Specific Onset Urine Protein Urine Glucose (UA) Urine Ketones Urine Blood Urine Nitrite Ur Leukocyte Esterase Urine RBC Urine WBC Ur Squamous Epith Cells Urine Bacteria Hyaline Casts Salicylates Urine Opiates Screen Urine Fentanyl Screen Acetaminophen Ur Barbiturates Screen Ur Phencyclidine Scrn Ur Amphetamines Screen U Benzodiazepines Scrn Urine Cocaine Screen U Marijuana (THC) Screen Ethyl Alcohol Acetone, Qual COVID-19 (ALLEN) COVID-19 Clin Com Imaging Radiologist's Impressions: Impressions Cervical Spine CT 09/26/22 00:23 IMPRESSION: 1. No acute intracranial abnormality. 2. No cervical spine fracture or traumatic malalignment. Head CT 09/26/22 00:23 IMPRESSION: 1. No acute intracranial abnormality. 2. No cervical spine fracture or traumatic malalignment. Abdomen/Pelvis CT 09/26/22 00:28 IMPRESSION: 1. Fractures of the anterolateral left seventh and eighth ribs appear subacute. 2. No other acute traumatic injuries are identified in the chest, abdomen, and pelvis. 3. Incidental note made of hepatic steatosis, chronic pancreatitis and marked distention of the urinary bladder. 4. There is a tiny 2 mm nodule in the left upper lobe (25:160) should need no follow-up. Chest CT 09/26/22 00:28 IMPRESSION: 1. Fractures of the anterolateral left seventh and eighth ribs appear subacute. 2. No other acute traumatic injuries are identified in the chest, abdomen, and pelvis. 3. Incidental note made of hepatic steatosis, chronic pancreatitis and marked distention of the urinary bladder. 4. There is a tiny 2 mm nodule in the left upper lobe (25:160) should need no follow-up. Assessment and Plan (1) Syncope: Status: Acute (2) Alcohol withdrawal: Status: Acute (3) Alcoholic ketoacidosis: Status: Acute (4) Fracture, ribs: Status: Acute Plan 41-year-old male with past medical history of diabetes, alcohol abuse presents to the hospital with syncopal episodes # syncope - alcohol withdrawal seizures versus vasovagal syncope given poor appetite - patient also reported loss of bowel control during today's episode - patient is experiencing DTs at this time, with visual hallucinations and conrado ar withdrawals from alcohol - will treat with phenobarb protocol , thiamine and folic acid - monitor symptoms # alcohol withdrawal/DTs - phenobarb IM/p.o. - Thiamine and folic acid supplement # ketoacidosis - likely alcoholic ketoacidosis versus starvation ketoacidosis - DKA less likely - normal pH - has a positive anion gap in acetone - will treat with IV fluids - follow BMP, bicarb level, anion gap # rib fractures - incentive spirometry - # diabetes - continue home insulin - will add low-dose sliding scale insulin - diabetic diet # hyponatremia - likely secondary to decreased solute intake - will start on NS - follow BMP DVT prophylaxis: Lovenox given patient's significant alcohol withdrawal / DTs/possible withdrawal seizures patient will require minimum 2 nights inpatient hospital stay for further management and monitor Time Spent With Patient Time: Total time managing care of this patient today ____ minutes. Quality Stroke Does the patient have a stroke diagnosis?: No VTE Prior VTE?: No VTE Risk Level:: Medical - moderate - high VTE Device Contraindication: Treatment Not Indicated VTE Drug Contraindication: N/A - Med Ordered
[2022-09-26 07:57] LABS: Glucose, Whole Blood 109 mg/dL (60-115)
[2022-09-26] MEDS: 0.9 % Sodium Chloride 1,000 ML 100 ML IVCONT ×2 (08:25→16:32)
[2022-09-26] MEDS: Enoxaparin Sodium 40 MG/0.4 ML SYRINGE SUBCUT (08:26)
[2022-09-26] MEDS: 0.9 % Sodium Chloride Flush 3 ML SYRINGE IVFLUSH ×2 (08:26→16:32)
[2022-09-26] MEDS: Thiamine HCL 100 MG TABLET PO (08:27)
--- NOTE | 2022-09-26 08:30 | PHA.MEDREC ---
Pharmacy Consult ? Medication Reconciliation Pharmacy has completed the medication reconciliation. Patient had bag of medications from home. Reviewed meds with patient and discussed insulin dosing as well.
--- NOTE | 2022-09-26 08:37 | PC.NURSE ---
PT IS A/O X 4 NO SOB/SHERRIE NOTED 02 SAT 99% ON R/A. LUNGS - CTA. SPEAKS IN FULL SENTENCES. HEART SOUNDS REGULAR. ABD SOFT AND NON-TENDER. NO EDEMA NOTED. CIWA - 3, PT IS HAVING INTERMITTENT VISUAL HALLUCINATION, MED WITH PHENOBARITAL IM. PT AWARE OF PLAN OF CARE.
--- NOTE | 2022-09-26 08:46 | MHC.EDTECH ---
Pt was cleaned up and changed over into hospital clothes. Mouth care was done.
--- NOTE | 2022-09-26 09:12 | PC.NURSE ---
rn to rn report given joann muro aware of plan of care for admission to room 379.
--- NOTE | 2022-09-26 10:44 | MHC.CM.PN ---
PT REPORTS HE LIVES ALONE AND IS INDEPENDENT WITH CARE PT HAS NO DME AND SEES A MH THERAPIST TWICE PER MONTH PT IS COVID [facility] DECLINES A HCP PCP: DORENE QUINTANILLA DCP: HOME WITH RESOURCES/REFERRALS FROM [employer] PT WILL ARRANGE TRANSPORT
--- NOTE | 2022-09-26 11:08 | PM.EVENT ---
Event Note Date of Service: 09/26/22 Event Note: 41-year-old male with past medical history of diabetes, alcohol abuse presents to the hospital with syncopal episodes Syncope alcohol withdrawal seizures versus vasovagal syncope given poor appetite patient also reported loss of bowel control during today's episode patient is experiencing DTs at this time, with visual hallucinations? and clear withdrawals from alcohol phenobarb protocol, thiamine and folic acid Alcohol withdrawal/DTs phenobarb IM/p.o. Thiamine and folic acid supplement anion gap metabolic Ketoacidosis likely alcoholic ketoacidosis versus starvation ketoacidosis DKA less likely normal pH IV fluids follow BMP, bicarb level, anion gap Rib fractures incentive spirometry Diabetes 2 ss, ada diet Hyponatremia likely secondary to decreased solute intake continue NS follow BMP Protein calorie malnutrition Likely poor intake due to alcohol use Add protein to diet DVT prophylaxis with Lovenox Time Spent With Patient Time: Total time managing care of this patient today ____ minutes.
--- NOTE | 2022-09-26 11:23 | MHC.CDI.CONC ---
CDI Concurrent Query Documentation Clarification: PHYSICIAN'S DOCUMENTATION REQUEST Date of Query: 09/26/22 1123 Patient Name: Yeison Pereyra Admit Date: 09/26/22 Dear Doctor, A review of the medical record indicates additional documentation may be needed. Please review below and update the documentation accordingly. Clinical Indicators: Risk Factors/Clinical Indicators/Treatments Event note 09/26 - Protein calorie malnutrition Likely poor intake due to alcohol use. Add protein to diet. ASPEN Criteria* Acute Illness Chronic Illness Clinical Characteristic Non-Severe (2 or more criteria present) Severe (2 or more criteria present) Non-Severe (2 or more criteria present) Severe (2 or more criteria present) Energy Intake <75% for >7 days <=50% for >=5 days <75% for >=1 month <=75% for >=1 month Weight Loss 1 week 1 ? 2% >2% N/A N/A 1 month 5% >5% 5% >5% 3 months 7.5 % >7.5% 7.5% >7.5% 6 months N/A N/A 10% >10% 1 year N/A N/A 20% >20% Body Fat Mild Moderate Mild Severe Muscle Mass Mild Moderate Mild Severe Fluid Accumulation Mild Moderate to Severe Mild Severe Reduced Almond Pan Finisher Strength N/A Measurably Reduced N/A Measurably Reduced *[facility] Hospitalist, 2017 If possible, please provide in your progress notes, additional specificity regarding the severity of the malnutrition using the above information: Mild Moderate Severe Other (please specify) Unable to determine Use of terms such as suspected, likely, concern for, or probable (associated with a specific diagnosis that is being evaluated, monitored, or treated as if it exists) are acceptable and can be coded in the inpatient setting, when documented at the time of discharge. Thank you, Breanna Araya [facility], CDIS Extension: [phone] Please use your independent medical judgment in providing your response. THIS QUERY IS PART OF THE PERMANENT MEDICAL RECORD Other Diagnosis: unable to determine
[2022-09-26 11:27] LABS: Glucose, Whole Blood 194 mg/dL (60-115)
--- NOTE | 2022-09-26 11:34 | P.CDIC_ITS ---
CDI Concurrent Query Documentation Clarification: PHYSICIAN'S DOCUMENTATION REQUEST Date of Query: 09/26/22 1134 Patient Name: Yeison Pereyra Admit Date: 09/26/22 Dear Doctor, A review of the medical record indicates additional documentation may be needed. Please review below and update the documentation accordingly. Clinical Indicators: Risk Factors/Clinical Indicators/Treatments LABS: WBC 4.2 RBC 3.58 PLT 70L Poor appetite, Alcoholic ketoacidosis vs. Starvation ketoacidosis, protein calorie malnutrition Low platelet count in the past. Based on the above, could you clarify in the Progress Notes the appropriate diagnosis, if significant, that supports the above abnormalities and additional evaluation, monitoring, and/or treatment rendered: * Pancytopenia or other etiology of lab findings * Labs indicate a diagnosis of (please specify) * Other (please specify) * Unable to determine Use of terms such as suspected, likely, concern for, or probable (associated with a specific diagnosis that is being evaluated, monitored, or treated as if it exists) are acceptable and can be coded in the inpatient setting, when documented at the time of discharge. Thank you, Breanna Araya [facility], CDIS Extension: [phone] Please use your independent medical judgment in providing your response. THIS QUERY IS PART OF THE PERMANENT MEDICAL RECORD Other Diagnosis: see note
[2022-09-26] MEDS: Insulin Lispro 100 UNIT/ML 3 ML VIAL SUBCUT ×3 (11:47→21:02)
[2022-09-26 12:31] LABS: Blood Urea Nitrogen 10 mg/dL (9-16); Creatinine Clr Calc Pharmacy 82.4; Estimated Glomerular Filt Rate > 60; Glucose Random 221 mg/dL (60-115)
--- NOTE | 2022-09-26 12:41 | PC.NURSE ---
All pt's belongings and meds taken home home by sister. see belonging sheet.
[2022-09-26 12:45] LABS: Anion Gap 28 (12-20); Calcium 7.7 mg/dL (8.4-10.2); Carbon Dioxide 13 mmol/L (22-29); Chloride 91 mmol/L (96-108); Potassium 3.2 mmol/L (3.3-5.1); Sodium 129 mmol/L (135-145)
--- NOTE | 2022-09-26 14:11 | MHC.RECOVRN ---
This writer technical publications went to meet w/ patient after addiction consult was placed. Patient was sleeping, not able to wake to verbal stimuli. Addie ENGLISH reports CIWA at noon 7 and patient has been experiencing hallucinations since on the med floor today. T/W will f/u when patient more alert and able to hold conversation.
[2022-09-26 16:28] LABS: Glucose, Whole Blood 253 mg/dL (60-115)
[2022-09-26 19:58] LABS: Glucose, Whole Blood 304 mg/dL (60-115)
[2022-09-26] MEDS: PHENobarbitaL 15 MG TABLET 45 MG PO (21:02)
[2022-09-26 23:00] LABS: Glucose, Whole Blood 245 mg/dL (60-115)
[2022-09-27] MEDS: 0.9 % Sodium Chloride 1,000 ML 100 ML IVCONT (02:38)
[2022-09-27 03:29] VITALS: BP 123/83; PULSE 82; RESP 18; TEMP 36.8; O2SAT 99
[2022-09-27 06:52] LABS: MANUAL DIFF FLAG NO
[2022-09-27 07:01] LABS: Basophils Percent Auto 0.5 % (0-2); Eosinophils Absolute Auto 0.1 X10*3/uL (0.0-0.4); Eosinophils Percent Auto 2.9 % (0-4); Hematocrit 26.9 % (42.0-52.0); Hemoglobin 9.7 g/dl (14.0-18.0); Imm Gran Abs Auto 0.07 X10*3/uL (0.00-0.03); Imm Gran Pct Auto 1.7 % (0.0-0.4); Lymphocytes Absolute Auto 1.3 X10*3/uL (1.2-4.9); Lymphocytes Percent Auto 31.6 % (20-40); Mean Corpuscular HGB Conc 36.1 g/dl (31.0-36.0); Mean Corpuscular Hemoglobin 31.6 pg (27.0-33.0); Mean Corpuscular Volume 87.6 fL (80.0-98.0); Mean Platelet Volume 10.3 fL (9.4-12.4); Monocytes Absolute Auto 0.4 X10*3/uL (0.1-1.2); Monocytes Percent Auto 9.7 % (2-11); Neutrophils Absolute Auto 2.3 x10*3/uL (2.0-8.3); Neutrophils Percent Auto 53.6 % (45-73); Red Blood Count 3.07 X10*6/uL (4.60-5.80); Red Cell Distribution Width 13.2 % (11.0-16.0); White Blood Count 4.2 X10*3/uL (4.8-10.8)
[2022-09-27 07:04] LABS: Platelet Count 93 X10*3/uL (160-400)
[2022-09-27 07:17] LABS: Blood Urea Nitrogen 7 mg/dL (9-16); Calcium 7.8 mg/dL (8.4-10.2); Creatinine Clr Calc Pharmacy 93.5; Estimated Glomerular Filt Rate > 60; Glucose Random 232 mg/dL (60-115)
[2022-09-27 07:29] LABS: Anion Gap 14 (12-20); Carbon Dioxide 23 mmol/L (22-29); Chloride 97 mmol/L (96-108); Potassium 2.8 mmol/L (3.3-5.1); Sodium 131 mmol/L (135-145)
[2022-09-27 07:38] VITALS: BP 141/94; PULSE 89; RESP 16; TEMP 36.9; O2SAT 96
[2022-09-27 07:49] LABS: Glucose, Whole Blood 277 mg/dL (60-115)
[2022-09-27] MEDS: PHENobarbitaL 15 MG TABLET 45 MG PO ×2 (08:04→20:40)
[2022-09-27] MEDS: Folic Acid 1 MG TABLET PO (08:07)
[2022-09-27] MEDS: Enoxaparin Sodium 40 MG/0.4 ML SYRINGE SUBCUT (08:07)
[2022-09-27] MEDS: Thiamine HCL 100 MG TABLET PO (08:07)
[2022-09-27] MEDS: Insulin Lispro 100 UNIT/ML 3 ML VIAL SUBCUT ×4 (08:08→20:40)
[2022-09-27] MEDS: Pyridoxine HCl (Vitamin B6) 50 MG TABLET PO (10:51)
[2022-09-27] MEDS: hydrOXYzine HCL 25 MG TABLET PO (10:52)
[2022-09-27] MEDS: lamoTRIgine 100 MG TABLET 200 MG PO ×2 (10:52→20:39)
[2022-09-27] MEDS: cloNIDine HCL 0.2 MG TABLET PO ×2 (10:52→20:39)
[2022-09-27] MEDS: ondansetron HCL 4 MG/2 ML VIAL IVPUSH (10:53)
[2022-09-27 11:29] LABS: Glucose, Whole Blood 276 mg/dL (60-115)
[2022-09-27 15:30] VITALS: BP 143/91; PULSE 85; RESP 18; TEMP 36.3; O2SAT 97
--- NOTE | 2022-09-27 15:47 | HO.PM.IMPN ---
Subjective Subjective Date of Service: 09/27/22 Interval History: Feels better since admission. Discussed with staff marked improvement last 24 hours Review of Systems Denies chest pain Denies shortness of breath Denies nausea vomiting diarrhea Denies fever chills Physical Exam Vital Signs: Vital Signs: Last Vital Signs Temp 97.4 F 09/27/22 15:30 Pulse 85 09/27/22 15:30 Resp 18 09/27/22 15:30 BP 143/91 H 09/27/22 15:30 Pulse Ox 97 09/27/22 15:30 O2 Del Method 09/27/22 15:30 BMI result Body Mass Index 21.1 Const: Other: Awake alert oriented x3 no acute distress Resp: Other: Clear to auscultation bilaterally no rales rhonchi or wheezes Cardio: Other: No S4; positive S1-S2; no S3 murmurs rubs or gallops GI: Other: Soft nontender nondistended normoactive bowel sounds Neuro: Other: Cranial nerves 2-12 grossly intact as tested. Motor is 5/5 bilaterally. Sensation is intact. Cognition appropriate Extrem: Other: No edema bilaterally Objective Data Active Medications Acetaminophen (Acetaminophen 325 Mg Tablet) 650 mg PO Q6H PRN PRN Reason: Pain, Mild (Pain Scale 1-3) Clonidine HCl (Clonidine Hcl 0.2 Mg Tablet) 0.2 mg PO BID [facility]; Protocol Last Admin: 09/27/22 10:52 Dose: 0.2 mg Documented By: DAYNA Dextrose (Dextrose 50 % 25 Gm/50 Ml Syringe) 25 gm IVPUSH Q15M PRN; Protocol PRN Reason: per Hypoglycemia Standing Ord. Docusate Sodium (Docusate Sodium 100 Mg Capsule) 100 mg PO DAILY PRN PRN Reason: Constipation Enoxaparin Sodium (Enoxaparin Sodium 40 Mg/0.4 Ml Syringe) 40 mg SUBCUT Q24H [facility] Last Admin: 09/27/22 08:07 Dose: 40 mg Documented By: DAYNA Escitalopram Oxalate (Escitalopram Oxalate 20 Mg Tablet) 20 mg PO DAILY [facility] Folic Acid (Folic Acid 1 Mg Tablet) 1 mg PO DAILY [facility] Last Admin: 09/27/22 08:07 Dose: 1 mg Documented By: DAYNA Glucose (Glucose Gel 15 Gm Gel..Gram.) 15 gm PO Q15M PRN; Protocol PRN Reason: per Hypoglycemia Standing Ord. Hydroxyzine HCl (Hydroxyzine Hcl 25 Mg Tablet) 25 mg PO BID PRN PRN Reason: anxiety Last Admin: 09/27/22 10:52 Dose: 25 mg Documented By: DAYNA Insulin Human Lispro (Insulin Lispro 100 Unit/Ml 3 Ml Vial) 0 unit SUBCUT QIDACHS [facility]; Protocol Last Admin: 09/27/22 11:55 Dose: 6 unit Documented By: DAYNA Lamotrigine (Lamotrigine 100 Mg Tablet) 200 mg PO BID [facility] Last Admin: 09/27/22 10:52 Dose: 200 mg Documented By: DAYNA Magnesium Oxide (Magnesium Oxide 400 Mg Tablet) 400 mg PO BID [facility] Multivitamins/Vitamin C (Multivitamin Tablet) 1 tab PO DAILY [facility] Naltrexone HCl (Naltrexone Hcl 50 Mg Tablet) 50 mg PO DAILY [facility] Ondansetron HCl (Ondansetron Hcl 4 Mg/2 Ml Vial) 4 mg IVPUSH Q8H PRN PRN Reason: Nausea and Vomiting Last Admin: 09/27/22 10:53 Dose: 4 mg Documented By: DAYNA Pharmacy Consult (Consult Rx Perform Med Rec) 1 each MISCELLANE ONCE PRN PRN Reason: Consult order Pharmacy Consult (Consult Rx Etoh Phenob Im/Po) 1 each MISCELLANE ONCE PRN; Protocol PRN Reason: Consult order Phenobarbital (Phenobarbital 15 Mg Tablet) 45 mg PO BID [facility] Stop: 09/28/22 09:01 Last Admin: 09/27/22 08:04 Dose: 45 mg Documented By: DAYNA Phenobarbital (Phenobarbital 15 Mg Tablet) 15 mg PO BID [facility] Stop: 09/30/22 09:01 Phenobarbital (Phenobarbital 15 Mg Tablet) 15 mg PO DAILY [facility] Stop: 10/02/22 09:01 Pyridoxine HCl (Pyridoxine Hcl (Vitamin B6) 50 Mg Tablet) 50 mg PO DAILY [facility] Last Admin: 09/27/22 10:51 Dose: 50 mg Documented By: DAYNA Quetiapine Fumarate (Quetiapine Fumarate 200 Mg Tablet) 200 mg PO BID [facility] Quetiapine Fumarate (Quetiapine Fumarate 400 Mg Tablet) 400 mg PO BEDTIME [facility] Sodium Chloride (0.9 % Sodium Chloride Flush 3 Ml Syringe) 3 ml IVFLUSH QSHIFT [facility] Last Admin: 09/27/22 08:11 Dose: Not Given Documented By: DAYNA Non-Admin Reason: IV Running Thiamine HCl (Thiamine Hcl 100 Mg Tablet) 100 mg PO DAILY [facility] Last Admin: 09/27/22 08:07 Dose: 100 mg Documented By: DAYNA Thiamine HCl (Thiamine Hcl 100 Mg Tablet) 100 mg PO DAILY [facility] Trazodone HCl (Trazodone Hcl 100 Mg Tablet) 200 mg PO BEDTIME PRN PRN Reason: Sleep Labs 09/27/22 06:12 09/27/22 06:12 Labs: Laboratory Results - last 24 hr 09/26/22 09/26/22 09/26/22 16:17 19:25 22:56 MCV MCH MCHC RDW Plt Count MPV Immature Gran % (Auto) Neut % (Auto) Lymph % (Auto) [place] % (Auto) Eos % (Auto) Baso % (Auto) Lymph # (Auto) [place] # (Auto) Eos # (Auto) Baso # (Auto) Abs Immat Gran (auto) Absolute Neuts (auto) Absolute Nucleated RBC Nucleated RBC % (auto) Anion Gap Estim Creat Clear Calc Estimated GFR POC Glucose 253 H 304 H 245 H Random Glucose Calcium 09/27/22 09/27/22 09/27/22 06:12 06:12 07:42 MCV 87.6 MCH 31.6 MCHC 36.1 H RDW 13.2 Plt Count 93 L D MPV 10.3 Immature Gran % (Auto) 1.7 H Neut % (Auto) 53.6 Lymph % (Auto) 31.6 [place] % (Auto) 9.7 Eos % (Auto) 2.9 Baso % (Auto) 0.5 Lymph # (Auto) 1.3 [place] # (Auto) 0.4 Eos # (Auto) 0.1 Baso # (Auto) 0.0 Abs Immat Gran (auto) 0.07 H Absolute Neuts (auto) 2.3 Absolute Nucleated RBC 0.000 Nucleated RBC % (auto) 0.0 Anion Gap 14 Estim Creat Clear Calc 93.5 Estimated GFR > 60 POC Glucose 277 H Random Glucose 232 H Calcium 7.8 L 09/27/22 11:12 MCV MCH MCHC RDW Plt Count MPV Immature Gran % (Auto) Neut % (Auto) Lymph % (Auto) [place] % (Auto) Eos % (Auto) Baso % (Auto) Lymph # (Auto) [place] # (Auto) Eos # (Auto) Baso # (Auto) Abs Immat Gran (auto) Absolute Neuts (auto) Absolute Nucleated RBC Nucleated RBC % (auto) Anion Gap Estim Creat Clear Calc Estimated GFR POC Glucose 276 H Random Glucose Calcium Assessment and Plan (1) Syncope: Status: Acute (2) Alcohol withdrawal: Status: Acute (3) Alcoholic ketoacidosis: Status: Acute Plan 41-year-old male with past medical history of diabetes, alcohol abuse presents to the hospital with syncopal episodes.. Subsequently developed alcohol withdrawal. Markedly improved this a.m. 1.Syncope -?likely alcohol withdrawal seizures given fecal incontinence -?followed on CIWA scale....0-1 this am -continue to follow 2.Alcohol withdrawal/DTs -phenobarb IM/p.o.... Doing well with protocol -thiamine and folic acid supplement -Addiction Medicine consult 3.Alcoholic ketoacidosis -?resolved 4.DMII -continue basal insulin -lispro correctional scale -adjust as indicate 5.Hyponatremia -slowly normalizing with p.o. intake -follow renals/divalents Lovenox Full code Requires ongoing hospitalization to treat alcohol withdrawal Time Spent With Patient Time: Total time managing care of this patient today ____ minutes. Quality Stroke Does the patient have a stroke diagnosis?: No VTE Prior VTE?: No VTE Risk Level:: Medical - moderate - high VTE Device Contraindication: Treatment Not Indicated VTE Drug Contraindication: N/A - Med Ordered
[2022-09-27 17:00] LABS: Glucose, Whole Blood 268 mg/dL (60-115)
[2022-09-27] MEDS: Potassium Chloride Packet 20 MEQ PACKET 40 MEQ PO ×2 (17:11→20:39)
[2022-09-27] MEDS: 0.9 % Sodium Chloride Flush 3 ML SYRINGE IVFLUSH (17:11)
[2022-09-27 19:44] VITALS: BP 141/92; PULSE 98; RESP 18; TEMP 37.2; O2SAT 98
[2022-09-27 20:00] LABS: Glucose, Whole Blood 265 mg/dL (60-115)
[2022-09-27] MEDS: QUEtiapine Fumarate 400 MG TABLET PO (20:40)
[2022-09-27] MEDS: Magnesium Oxide 400 MG TABLET PO (20:41)
[2022-09-28] MEDS: Potassium Chloride Packet 20 MEQ PACKET 40 MEQ PO ×2 (00:37→04:37)
[2022-09-28] MEDS: 0.9 % Sodium Chloride Flush 3 ML SYRINGE IVFLUSH ×3 (00:37→17:15)
[2022-09-28 04:00] VITALS: BP 140/71; PULSE 65; RESP 18; TEMP 36.7; O2SAT 97
[2022-09-28] MEDS: Enoxaparin Sodium 40 MG/0.4 ML SYRINGE SUBCUT (05:35)
[2022-09-28 08:00] VITALS: BP 120/79; PULSE 103; RESP 18; TEMP 36.4; O2SAT 99
[2022-09-28 08:22] LABS: Glucose, Whole Blood 273 mg/dL (60-115)
[2022-09-28] MEDS: Insulin Lispro 100 UNIT/ML 3 ML VIAL SUBCUT ×4 (08:35→20:14)
[2022-09-28] MEDS: Folic Acid 1 MG TABLET PO (08:36)
[2022-09-28] MEDS: lamoTRIgine 100 MG TABLET 200 MG PO ×2 (08:36→20:20)
[2022-09-28] MEDS: Thiamine HCL 100 MG TABLET PO (08:36)
[2022-09-28] MEDS: cloNIDine HCL 0.2 MG TABLET PO ×2 (08:36→20:20)
[2022-09-28] MEDS: Magnesium Oxide 400 MG TABLET PO ×2 (08:36→20:21)
[2022-09-28] MEDS: Multivitamin TABLET 1 TAB PO (08:36)
[2022-09-28] MEDS: QUEtiapine Fumarate 200 MG TABLET PO ×2 (08:37→20:19)
[2022-09-28] MEDS: Escitalopram Oxalate 20 MG TABLET PO (08:37)
[2022-09-28] MEDS: PHENobarbitaL 15 MG TABLET 45 MG PO (08:38)
[2022-09-28] MEDS: Pyridoxine HCl (Vitamin B6) 50 MG TABLET PO (09:44)
--- NOTE | 2022-09-28 09:46 | PC.NURSE ---
Unscheduled pyridoxine HCl (vit.B6) given to pt. First dose was ordered yesterday but todays med was pulled. Pharmacist approved.
[2022-09-28 11:22] LABS: Glucose, Whole Blood 347 mg/dL (60-115)
[2022-09-28] MEDS: Acetaminophen 325 MG TABLET 650 MG PO ×2 (12:54→20:17)
--- NOTE | 2022-09-28 14:58 | MHC.RECOVRN ---
Met with pt in 379 after consult placed to Addiction Medicine for alcohol use. Pt laying in bed, awake, alert, easily engages in conversation. Pt reports feeling better. Pt reports drinking alcohol, 1 pint daily x 8 months. T/w had met with pt on 09/06, pt continued to use alcohol after that admission. Pt reports prior to 8 months ago having 2-3 years in recovery. During that time, pt reports being on probation, going to IOP, and naltrexone which helped maintain recovery. Pt has not been on probation, however, spoke to dispatch officer and believes it will begin again. Pt also spoke with PO regarding [address]. Pt reports he has previously been sectioned to [place] and found it semi-helpful. Pt would like to try PHP/IOP before [employer] [address] if possible. Pt provided with PHP/IOP information as well as t/w contact information. Denies other questions or concerns at this time. Discussed with Reena Jose APRN.
[2022-09-28 15:46] VITALS: BP 125/79; PULSE 94; RESP 18; TEMP 36.1; O2SAT 99
--- NOTE | 2022-09-28 15:58 | HO.PM.IMPN ---
Subjective Subjective Date of Service: 09/29/22 Interval History: still feels unsteady in gait and somewhat nauseous at times. CIWA 0 Review of Systems Denies chest pain Denies shortness of breath Admits nausea; denies vomiting diarrhea Denies fever chills Physical Exam Vital Signs: Vital Signs: Last Vital Signs Temp 97.0 F 09/28/22 15:46 Pulse 94 09/28/22 15:46 Resp 18 09/28/22 15:46 BP 125/79 09/28/22 15:46 Pulse Ox 99 09/28/22 15:46 O2 Del Method 09/28/22 15:46 BMI result Body Mass Index 21.1 Const: Other: Awake alert oriented x3 no acute distress Resp: Other: Clear to auscultation bilaterally no rales rhonchi or wheezes Cardio: Other: No S4; positive S1-S2; no S3 murmurs rubs or gallops GI: Other: Soft nontender nondistended normoactive bowel sounds Neuro: Other: Cranial nerves 2-12 grossly intact as tested. Motor is 5/5 bilaterally. Sensation is intact. Cognition appropriate Extrem: Other: No edema bilaterally Objective Data Active Medications Acetaminophen (Acetaminophen 325 Mg Tablet) 650 mg PO Q6H PRN PRN Reason: Pain, Mild (Pain Scale 1-3) Last Admin: 09/28/22 12:54 Dose: 650 mg Documented By: GERHARD Clonidine HCl (Clonidine Hcl 0.2 Mg Tablet) 0.2 mg PO BID [facility]; Protocol Last Admin: 09/28/22 08:36 Dose: 0.2 mg Documented By: GERHARD Dextrose (Dextrose 50 % 25 Gm/50 Ml Syringe) 25 gm IVPUSH Q15M PRN; Protocol PRN Reason: per Hypoglycemia Standing Ord. Docusate Sodium (Docusate Sodium 100 Mg Capsule) 100 mg PO DAILY PRN PRN Reason: Constipation Enoxaparin Sodium (Enoxaparin Sodium 40 Mg/0.4 Ml Syringe) 40 mg SUBCUT Q24H [facility] Last Admin: 09/28/22 05:35 Dose: 40 mg Documented By: ARLEN Escitalopram Oxalate (Escitalopram Oxalate 20 Mg Tablet) 20 mg PO DAILY [facility] Last Admin: 09/28/22 08:37 Dose: 20 mg Documented By: GERHARD Folic Acid (Folic Acid 1 Mg Tablet) 1 mg PO DAILY [facility] Last Admin: 09/28/22 08:36 Dose: 1 mg Documented By: GERHARD Glucose (Glucose Gel 15 Gm Gel..Gram.) 15 gm PO Q15M PRN; Protocol PRN Reason: per Hypoglycemia Standing Ord. Hydroxyzine HCl (Hydroxyzine Hcl 25 Mg Tablet) 25 mg PO BID PRN PRN Reason: anxiety Last Admin: 09/27/22 10:52 Dose: 25 mg Documented By: DAYNA Insulin Human Lispro (Insulin Lispro 100 Unit/Ml 3 Ml Vial) 0 unit SUBCUT QIDACHS [facility]; Protocol Last Admin: 09/28/22 12:51 Dose: 8 unit Documented By: GERHARD Lamotrigine (Lamotrigine 100 Mg Tablet) 200 mg PO BID [facility] Last Admin: 09/28/22 08:36 Dose: 200 mg Documented By: GERHARD Magnesium Oxide (Magnesium Oxide 400 Mg Tablet) 400 mg PO BID [facility] Last Admin: 09/28/22 08:36 Dose: 400 mg Documented By: GERHARD Multivitamins/Vitamin C (Multivitamin Tablet) 1 tab PO DAILY [facility] Last Admin: 09/28/22 08:36 Dose: 1 tab Documented By: GERHARD Naltrexone HCl (Naltrexone Hcl 50 Mg Tablet) 50 mg PO DAILY [facility] Last Admin: 09/28/22 08:43 Dose: Not Given Documented By: GERHARD Non-Admin Reason: Patient Refused Ondansetron HCl (Ondansetron Hcl 4 Mg/2 Ml Vial) 4 mg IVPUSH Q8H PRN PRN Reason: Nausea and Vomiting Last Admin: 09/27/22 10:53 Dose: 4 mg Documented By: DAYNA Pharmacy Consult (Consult Rx Perform Med Rec) 1 each MISCELLANE ONCE PRN PRN Reason: Consult order Pharmacy Consult (Consult Rx Etoh Phenob Im/Po) 1 each MISCELLANE ONCE PRN; Protocol PRN Reason: Consult order Phenobarbital (Phenobarbital 15 Mg Tablet) 15 mg PO BID [facility] Stop: 09/30/22 09:01 Phenobarbital (Phenobarbital 15 Mg Tablet) 15 mg PO DAILY [facility] Stop: 10/02/22 09:01 Pyridoxine HCl (Pyridoxine Hcl (Vitamin B6) 50 Mg Tablet) 50 mg PO DAILY [facility] Last Admin: 09/28/22 09:44 Dose: 50 mg Documented By: GERHARD Quetiapine Fumarate (Quetiapine Fumarate 200 Mg Tablet) 200 mg PO BID [facility] Last Admin: 09/28/22 08:37 Dose: 200 mg Documented By: GERHARD Quetiapine Fumarate (Quetiapine Fumarate 400 Mg Tablet) 400 mg PO BEDTIME [facility] Last Admin: 09/27/22 20:40 Dose: 400 mg Documented By: SELENA Sodium Chloride (0.9 % Sodium Chloride Flush 3 Ml Syringe) 3 ml IVFLUSH QSHIFT [facility] Last Admin: 09/28/22 08:41 Dose: 3 ml Documented By: GERHARD Thiamine HCl (Thiamine Hcl 100 Mg Tablet) 100 mg PO DAILY [facility] Last Admin: 09/28/22 08:36 Dose: 100 mg Documented By: GERHARD Thiamine HCl (Thiamine Hcl 100 Mg Tablet) 100 mg PO DAILY [facility] Last Admin: 09/28/22 09:01 Dose: Not Given Documented By: GERHRAD Non-Admin Reason: Duplicate Order Trazodone HCl (Trazodone Hcl 100 Mg Tablet) 200 mg PO BEDTIME PRN PRN Reason: Sleep Labs 09/27/22 06:12 09/27/22 06:12 Labs: Laboratory Results - last 24 hr 09/27/22 09/27/22 09/28/22 16:56 19:47 08:19 POC Glucose 268 H 265 H 273 H 09/28/22 11:05 POC Glucose 347 H Assessment and Plan (1) Syncope: Status: Acute (2) Diabetes type 2, controlled: Status: Acute (3) Hypokalemia: Status: Acute (4) Hyponatremia: Status: Acute Plan 41-year-old male with past medical history of diabetes, alcohol abuse presents to the hospital with syncopal episodes.. Subsequently developed alcohol withdrawal. Markedly improved this a.m. 1.Syncope -?likely alcohol withdrawal seizures given fecal incontinence -?followed on CIWA scale....0-1 this am -continue to follow... PT consult in a.m. 2.Alcohol withdrawal/DTs -Addiction Medicine consult 3.Alcoholic ketoacidosis -?resolved 4.DMII -continue basal insulin -lispro correctional scale -adjust as indicate 5.Hyponatremia/hypokalemia -slowly normalizing with p.o. intake -follow renals/divalents Lovenox Full code Requires ongoing hospitalization to treat alcohol withdrawal Time Spent With Patient Time: Total time managing care of this patient today ____ minutes. Quality Stroke Does the patient have a stroke diagnosis?: No VTE Prior VTE?: No VTE Risk Level:: Medical - moderate - high VTE Device Contraindication: Treatment Not Indicated VTE Drug Contraindication: N/A - Med Ordered
--- NOTE | 2022-09-28 16:42 | P.EN_ITS ---
Event Note Date of Service: 09/28/22 Event Note: Addiction consult placed Please see vice president global advertising sales note for details. Time Spent With Patient Time: Total time managing care of this patient today ____ minutes.
--- NOTE | 2022-09-28 16:42 | PM.EVENT ---
Event Note Date of Service: 09/28/22 Event Note: Addiction consult placed Please see fiberglass roller note for details. Time Spent With Patient Time: Total time managing care of this patient today ____ minutes.
[2022-09-28 16:44] LABS: Glucose, Whole Blood 249 mg/dL (60-115)
[2022-09-28 19:15] VITALS: BP 120/82; PULSE 88; RESP 16; TEMP 36.3; O2SAT 100
[2022-09-28] MEDS: PHENobarbitaL 15 MG TABLET PO (20:19)
[2022-09-28] MEDS: QUEtiapine Fumarate 400 MG TABLET PO (20:21)
[2022-09-28] MEDS: traZODone HCL 100 MG TABLET 200 MG PO (20:27)
[2022-09-28 20:31] LABS: Glucose, Whole Blood 318 mg/dL (60-115)
[2022-09-29] MEDS: 0.9 % Sodium Chloride Flush 3 ML SYRINGE IVFLUSH ×2 (00:28→08:29)
[2022-09-29 03:26] VITALS: BP 125/71; PULSE 85; RESP 18; TEMP 36.6; O2SAT 97
[2022-09-29] MEDS: Enoxaparin Sodium 40 MG/0.4 ML SYRINGE SUBCUT (06:24)
[2022-09-29 07:04] LABS: Hematocrit 25.3 % (42.0-52.0); Hemoglobin 9.1 g/dl (14.0-18.0); Mean Corpuscular Hemoglobin 32.2 pg (27.0-33.0); Mean Corpuscular Volume 89.4 fL (80.0-98.0); Mean Platelet Volume 9.3 fL (9.4-12.4); Red Blood Count 2.83 X10*6/uL (4.60-5.80); Red Cell Distribution Width 14.1 % (11.0-16.0); White Blood Count 3.8 X10*3/uL (4.8-10.8)
[2022-09-29 07:06] LABS: Platelet Count 180 X10*3/uL (160-400)
[2022-09-29 07:14] VITALS: BP 109/75; PULSE 89; RESP 19; TEMP 36.9; O2SAT 100
[2022-09-29 07:25] LABS: Alanine Aminotransferase 46 U/L (0-40); Albumin Level 2.8 g/dL (3.5-5.0); Alkaline Phosphatase 189 U/L (39-117); Aspartate Amino Transferase 35 U/L (5-37); Bilirubin Total 0.6 mg/dL (0.0-1.0); Blood Urea Nitrogen 13 mg/dL (9-16); Estimated Glomerular Filt Rate > 60; Glucose Fasting 217 mg/dL (60-99); Total Protein 4.7 g/dL (6.5-8.0)
[2022-09-29 07:34] LABS: Anion Gap 12 (12-20); Carbon Dioxide 24 mmol/L (22-29); Chloride 101 mmol/L (96-108); Potassium 3.7 mmol/L (3.3-5.1); Sodium 133 mmol/L (135-145)
[2022-09-29 07:41] LABS: Glucose, Whole Blood 212 mg/dL (60-115)
[2022-09-29 07:46] LABS: Band Neutrophils Percent 3 % (3-5); Basophils Abs Manual 0.1 X10*3/uL (0.0-0.2); Basophils Percent Manual 3 % (0-2); Eosinophils Absolute Manual 0.1 X10*3/uL (0.0-0.4); Eosinophils Percent Manual 3 % (0-4); Lymphocytes Absolute Manual 2.1 X10*3/uL (1.2-4.9); Lymphocytes Percent Manual 54 % (20-40); Monocytes Absolute Manual 0.2 X10*3/uL (0.1-1.2); Monocytes Percent Manual 5 % (2-11); Neutrophils Absolute Manual 1.3 X10*3/uL (2.0-8.3); Neutrophils Percent Manual 32 % (45-73)
[2022-09-29 07:47] LABS: RBC Morphology NOTED
[2022-09-29 07:48] LABS: Hypochromasia 1+ (5-14) /OIF; Platelet Estimate NORMAL (NORMAL); Platelet Morphology Comment NORMAL; Smudge Cells PRESENT
[2022-09-29 08:17] LABS: Estimated Average Glucose 232 mg/dL; Hemoglobin A1c % 9.7 %
[2022-09-29] MEDS: Pyridoxine HCl (Vitamin B6) 50 MG TABLET PO (08:29)
[2022-09-29] MEDS: Insulin Lispro 100 UNIT/ML 3 ML VIAL SUBCUT ×2 (08:29→12:18)
[2022-09-29] MEDS: Escitalopram Oxalate 20 MG TABLET PO (08:30)
[2022-09-29] MEDS: Thiamine HCL 100 MG TABLET PO (08:30)
[2022-09-29] MEDS: metFORMIN HCl 500 MG TABLET PO (08:30)
[2022-09-29] MEDS: Multivitamin TABLET 1 TAB PO (08:30)
[2022-09-29] MEDS: Magnesium Oxide 400 MG TABLET PO (08:30)
[2022-09-29] MEDS: PHENobarbitaL 15 MG TABLET PO (08:30)
[2022-09-29] MEDS: QUEtiapine Fumarate 200 MG TABLET PO (08:30)
[2022-09-29] MEDS: lamoTRIgine 100 MG TABLET 200 MG PO (08:30)
[2022-09-29] MEDS: Folic Acid 1 MG TABLET PO (08:30)
--- NOTE | 2022-09-29 08:46 | MHC.CM.PN ---
HOME -SELF CARE SISTER TO TRANSPORT. RN AWARE OF PLAN IMM 09/28 IN CHART
[2022-09-29 11:27] LABS: Glucose, Whole Blood 254 mg/dL (60-115)
--- NOTE | 2022-09-29 11:46 | P.DS_ITS ---
DS: Providers Provider Date of Service: 09/29/22 Date of admission: 09/26/22 06:35 Date of discharge: 09/29/22 Primary care physician: Unknown Physician Consults: 09/26/22 11:48 Addiction Medicine Routine Consulting Provider: Oniel Wick Reason for consultation: alcohol DS: Diagnosis Discharge Diagnosis (1) Syncope: Status: Acute (2) Diabetes type 2, controlled: Status: Acute (3) Hypokalemia: Status: Acute (4) Hyponatremia: Status: Acute DS: Summary Hospital Course Hospital Course: 41-year-old male with past medical history of diabetes, bipolar disorder, alcohol abuse, presents to the hospital with complaints of syncopal episodes.? Patient reports that he has been falling and syncopized several times since .? Patient reports today was the worst where he had his head and was bleeding from a laceration on his head.? Patient reports no appetite, has been drinking, last drink was .? Reports auditory and visual hallucinations.? ? Patient states the syncopal episodes last few minutes, no biting of his tongue, did lose his bowel control today.? Denies any change in vision, no chest pain, no shortness of breath,? reports generalized abdominal pain, no urinary symptoms and no lower extremity edema. ? On arrival to the ED patient hemodynamically stable with a heart rate of 104, stable blood pressure Labs are significant for WBC count of 4.2, hemoglobin of 11.4, hematocrit 32.3, sodium of 130, chloride of 84, has an anion gap of 35, pH of 7.38, pCO2 of 22, bicarb of 15, glucose of 289, bili of 1.3, AST of 114, ALT of 67, lipase less than 4, urine is negative for acute infection, salicylate level as some 5, urine barbiturates positive, small acid stones, ? Negative alcohol level Hospital Course Admitted to general medical floor. Observe on CIWA protocol and started on the phenobarb protocol. He was seizure free during his hospitalization. Sugars became labile; discussed with patient he is noncompliant with his therapies at home secondary to alcohol. Last 48 hours of hospitalization his CIWA 0. In review of history this was likely alcohol withdrawal seizure given incontinence and withdrawal symptoms. He was seen by Addiction Medicine and was referred to IP/OP... has been active before and is willing to do again. He has been instructed to be compliant with his insulin and avoid alcohol Time Spent with Patient Time attestation: Total time managing care of this patient today ____ minutes. Discharge coordination time: Greater than 30 minutes Quality: Safe Use of Opioids Does Pt have an Active Cancer Diagnosis on the Problem List?: No Quality: Stroke Does the patient have a stroke diagnosis?: No Physical Exam Vital Signs: Vital Signs: Last Vital Signs Temp 98.4 F 09/29/22 07:14 Pulse 89 09/29/22 07:14 Resp 19 09/29/22 07:14 BP 109/75 09/29/22 07:14 Pulse Ox 100 09/29/22 07:14 O2 Del Method 09/29/22 07:14 BMI result Body Mass Index 21.1 Const: Other: Awake alert oriented x3 no acute distress Resp: Other: Clear to auscultation bilaterally no rales rhonchi or wheezes Cardio: Other: No S4; positive S1-S2; no S3 murmurs rubs or gallops GI: Other: Soft nontender nondistended normoactive bowel sounds Neuro: Other: Cranial nerves 2-12 grossly intact as tested. Motor is 5/5 bilaterally. Sensation is intact. Cognition appropriate Extrem: Other: No edema bilaterally DS: Data Data Completed and Pending Completed studies during hospitalization [Text1]: Procedures Detoxification Services for Substance Abuse Treatment (06/12/22) Insertion of Endotracheal Airway into Trachea, Via Natural or Artificial Opening (01/27/22) Insertion of Infusion Device into Superior Vena Cava, Percutaneous Approach (05/21/22) Respiratory Ventilation, Less than 24 Consecutive Hours (01/27/22) Ultrasonography of Superior Vena Cava, Guidance (05/21/22) Labs on day of discharge: Laboratory Results - last 24 hr 09/28/22 09/28/22 09/29/22 16:34 20:11 05:54 WBC 3.8 L RBC 2.83 L Hgb 9.1 L Hct 25.3 L MCV 89.4 MCH 32.2 MCHC 36.0 RDW 14.1 Plt Count 180 D MPV 9.3 L Immature Gran % (Auto) Cancelled Neut % (Auto) Cancelled Lymph % (Auto) Cancelled Jackson % (Auto) Cancelled Eos % (Auto) Cancelled Baso % (Auto) Cancelled Lymph # (Auto) Cancelled Jackson # (Auto) Cancelled Eos # (Auto) Cancelled Baso # (Auto) Cancelled Abs Immat Gran (auto) Cancelled Absolute Neuts (auto) Cancelled Absolute Nucleated RBC 0.000 Nucleated RBC % (auto) 0.0 Neutrophils % (Manual) 32 L Band Neutrophils % 3 Lymphocytes % (Manual) 54 H Monocytes % (Manual) 5 Eosinophils % (Manual) 3 Basophils % (Manual) 3 H Abs Neuts (Manual) 1.3 L Lymphocytes # (Manual) 2.1 Monocytes # (Manual) 0.2 Eosinophils # (Manual) 0.1 Basophils # (Manual) 0.1 Smudge Cells PRESENT Platelet Estimate NORMAL Plt Morphology Comment NORMAL RBC Morphology NOTED Hypochromasia 1+ (5-14) Sodium Potassium Chloride Carbon Dioxide Anion Gap BUN Creatinine Estim Creat Clear Calc Estimated GFR POC Glucose 249 H 318 H Fasting Glucose Estimat Average Glucose Hemoglobin A1c % Calcium Total Bilirubin AST ALT Alkaline Phosphatase Total Protein Albumin 09/29/22 09/29/22 09/29/22 05:54 05:54 07:12 WBC RBC Hgb Hct MCV MCH MCHC RDW Plt Count MPV Immature Gran % (Auto) Neut % (Auto) Lymph % (Auto) Jackson % (Auto) Eos % (Auto) Baso % (Auto) Lymph # (Auto) Jackson # (Auto) Eos # (Auto) Baso # (Auto) Abs Immat Gran (auto) Absolute Neuts (auto) Absolute Nucleated RBC Nucleated RBC % (auto) Neutrophils % (Manual) Band Neutrophils % Lymphocytes % (Manual) Monocytes % (Manual) Eosinophils % (Manual) Basophils % (Manual) Abs Neuts (Manual) Lymphocytes # (Manual) Monocytes # (Manual) Eosinophils # (Manual) Basophils # (Manual) Smudge Cells Platelet Estimate Plt Morphology Comment RBC Morphology Hypochromasia Sodium 133 L Potassium 3.7 D Chloride 101 Carbon Dioxide 24 Anion Gap 12 BUN 13 Creatinine 0.75 Estim Creat Clear Calc 111.0 Estimated GFR > 60 POC Glucose 212 H Fasting Glucose 217 H Estimat Average Glucose 232 Hemoglobin A1c % 9.7 Calcium 8.0 L Total Bilirubin 0.6 AST 35 ALT 46 H Alkaline Phosphatase 189 H Total Protein 4.7 L Albumin 2.8 L 09/29/22 11:15 WBC RBC Hgb Hct MCV MCH MCHC RDW Plt Count MPV Immature Gran % (Auto) Neut % (Auto) Lymph % (Auto) Jackson % (Auto) Eos % (Auto) Baso % (Auto) Lymph # (Auto) Jackson # (Auto) Eos # (Auto) Baso # (Auto) Abs Immat Gran (auto) Absolute Neuts (auto) Absolute Nucleated RBC Nucleated RBC % (auto) Neutrophils % (Manual) Band Neutrophils % Lymphocytes % (Manual) Monocytes % (Manual) Eosinophils % (Manual) Basophils % (Manual) Abs Neuts (Manual) Lymphocytes # (Manual) Monocytes # (Manual) Eosinophils # (Manual) Basophils # (Manual) Smudge Cells Platelet Estimate Plt Morphology Comment RBC Morphology Hypochromasia Sodium Potassium Chloride Carbon Dioxide Anion Gap BUN Creatinine Estim Creat Clear Calc Estimated GFR POC Glucose 254 H Fasting Glucose Estimat Average Glucose Hemoglobin A1c % Calcium Total Bilirubin AST ALT Alkaline Phosphatase Total Protein Albumin Discharge Plan Discharge Anticipated Discharge Date/Time: 09/29/22 11:37 Patient Disposition: Home, Self-Care Discharge Diagnosis: alcohol withdrawal Referrals: Physician,Unknown J [Primary Care Provider] - 1 Week Discharge Medications: Continued quetiapine 400 mg tablet 1 tab PO BEDTIME insulin aspart U-100 [Novolog FlexPen U-100 Insulin] 100 unit/mL (3 mL) insulin pen 0 sliding scale dose subcut QIDACHS Protocol: Insulin Correction Scale Less than or equal to 110 ---- Give (units): 0 111 to 150 Give (units): 0 151 to 200 Give (units): 2 201 to 250 Give (units): 4 251 to 300 Give (units): 6 301 to 350 Give (units): 8 Greater than 350 Give (units): 10 Call MD if Blood Glucose > : 350 hydroxyzine pamoate 25 mg capsule 1 cap PO BID PRN (Reason: anxiety) insulin glargine [Lantus Solostar U-100 Insulin] 100 unit/mL (3 mL) insulin pen 30 unit subcut DAILY Qty: 15 0RF quetiapine 400 mg Tablet Extended Release 24 Hr 400 mg PO DAILY@0900 multivitamin [Daily Multi-Vitamin] Tablet 1 tab PO DAILY naltrexone 50 mg Tablet 50 mg PO DAILY trazodone 150 mg Tablet 225 mg PO BEDTIME PRN (Reason: Sleep) pyridoxine (vitamin B6) [Vitamin B-6] 50 mg Tablet 50 mg PO DAILY lamotrigine 200 mg tablet 200 mg PO BID zolpidem 5 mg tablet 1 tab PO BEDTIME clonidine HCl 0.2 mg tablet 0.2 mg PO BID citalopram 40 mg tablet 40 mg PO DAILY thiamine HCl (vitamin B1) 100 mg tablet 100 mg PO DAILY folic acid 1 mg tablet 1 mg PO DAILY magnesium oxide 400 mg (241.3 mg magnesium) tablet 400 mg PO BID No Action (DME) lancets [TRUEplus Lancets] 33 gauge misc See Rx Instructions .Route Qty: 200 11RF Rx Instructions: Four times a day (DME) pen needle, diabetic [BD July 2nd Gen Pen Needle] 32 gauge x 5/32 needle See Rx Instructions .MEDSUPPLY Qty: 150 4RF Rx Instructions: 5 times a day (DME) FreeStyle Lite Strips Strip See Rx Instructions .Route Qty: 150 11RF Rx Instructions: Four times a day Discharge Orders: Discharge Order (Routine); Ordered 09/29/22 Ordered By: Samson Guallpa Diet: Advance to usual diet Activity on Discharge: As tolerated Stand Alone Forms: Patient Portal Discharge page, Against Medical Advice Care Plan Goals: follow-up with IP/OP as instructed by recovery nurse Health Concerns: continue all meds as prior to hospital Plan of Treatment: avoid alcohol at all cost Assessment: see discharge summary
== END 2022-09-29 12:56 | disposition home or self-care (01) | DRG 641 ==
LOC: HO.ED 09-26 04:41 → HO.EDOVER 09-26 06:44 → HO.S3 09-26 07:46
PROVIDERS: Nurse Practitioner Acute Care; Physician Assistant; Admitting Provider Internal Medicine; Emergency Provider Internal Medicine; PCP Internal Medicine; Visit Provider Hospitalist
DX: E87.1 Hypo-osmolality and hyponatremia (principal); S22.42XA Multiple fractures of ribs, left side, initial encounter for closed fracture; F10.131 Alcohol abuse with withdrawal delirium; D61.818 Other pancytopenia; S01.01XA Laceration without foreign body of scalp, initial encounter; E87.29 Other acidosis; E10.9 Type 1 diabetes mellitus without complications; E87.6 Hypokalemia; R56.9 Unspecified convulsions; W19.XXXA Unspecified fall, initial encounter; F31.9 Bipolar disorder, unspecified; Z91.199 Patient's noncompliance with other medical treatment and regimen due to unspecified reason; Z88.0 Allergy status to penicillin; Z79.899 Other long term (current) drug therapy
CPT/HCPCS: 36415; 70450; 71260; 72125; 74177; 80048; 80053; 80143; 80179; 80307; 81001; 82009; 82077; 82550; 82803; 82947; 83036; 83690; 83735; 84484; 85007; 85025; 85027; 85610; 87635; 93005; 99285; J1650; J2060; J2405; J2560; J3411; Q9967

== ENCOUNTER 2022-11-24 11:54 | Emergency (ER) | payer OTHER, SELFPAY ==
[2022-11-24 12:00] VITALS: BP 119/91; PULSE 135; RESP 18; TEMP 36.7; O2SAT 97; BMI 20.3
--- NOTE | 2022-11-24 12:08 | ED_ITS ---
HPI - General Adult General Chief complaint: General Medical Stated complaint: Suture Removal Time Seen by Provider: 11/24/22 12:04 History of Present Illness HPI narrative: Patient presents for removal of john from scalp, they have been for over 10 days, no complaint of any discomfort redness rash or fever, denies any discharge from wound Related Data Home Medications Medication Instructions Recorded Confirmed clonidine HCl 0.2 mg tablet 0.2 mg PO BID 11/11/20 09/26/22 lamotrigine 200 mg tablet 200 mg PO BID 01/28/22 09/26/22 citalopram 40 mg tablet 40 mg PO DAILY 02/08/22 09/26/22 folic acid 1 mg tablet 1 mg PO DAILY 02/08/22 09/26/22 magnesium oxide 400 mg (241.3 mg 400 mg PO BID 02/08/22 09/26/22 magnesium) tablet thiamine HCl (vitamin B1) 100 mg 100 mg PO DAILY 02/08/22 09/26/22 tablet zolpidem 5 mg tablet 1 tab PO BEDTIME 03/14/22 09/26/22 insulin aspart U-100 100 unit/mL 0 sliding scale dose subcut QIDACHS 06/12/22 09/26/22 (3 mL) subcutaneous pen (Novolog FlexPen U-100 Insulin aspart) quetiapine 400 mg tablet 1 tab PO BEDTIME 06/12/22 09/26/22 hydroxyzine pamoate 25 mg capsule 1 cap PO BID PRN anxiety 09/04/22 09/26/22 multivitamin (Daily Multi-Vitamin 1 tab PO DAILY 09/26/22 09/26/22 tablet) naltrexone 50 mg tablet 50 mg PO DAILY 09/26/22 09/26/22 pyridoxine (vitamin B6) 50 mg 50 mg PO DAILY 09/26/22 09/26/22 tablet (Vitamin B-6) quetiapine 400 mg tablet,extended 400 mg PO DAILY@0900 09/26/22 09/26/22 release 24 hr trazodone 150 mg tablet 225 mg PO BEDTIME PRN Sleep 09/26/22 09/26/22 Previous Rx's Medication Instructions Recorded lancets 33 gauge (TRUEplus Lancets) #200 ea 03/08/21 pen needle, diabetic 32 gauge x #150 ea 02/07/22 (BD July 2nd Gen Pen Needle) blood sugar diagnostic (FreeStyle #150 ea 03/20/22 Lite Strips) insulin glargine 100 unit/mL (3 30 unit (0.3 mL) subcut DAILY #15 09/06/22 mL) subcutaneous pen (Lantus mL Solostar U-100 Insulin) Allergies Allergy/AdvReac Type Severity Reaction Status Date / Time meropenem [MEROPENEM] Allergy Unknown SWELLING Verified 09/25/22 22:45 penicillin G procaine Allergy Unknown itching Verified 09/25/22 22:45 Penicillins [PENICILLINS] Allergy Unknown SWELLING Verified 09/25/22 22:45 ON LICENSE OF [facility] Past Medical History Source: nursing notes reviewed Medical History Alcohol use disorder Bacteremia Bipolar disorder 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 Mother Diabetes Social History Social History Household Members: None Household Members Other:: with dog Housing: Apartment Do you presently have visiting nurse or other home services: No Alcohol intake: never Patient Tobacco Use Status: Never used Tobacco e-Cigarette/Vaping Use: Never Used Second Hand Smoke Exposure: No Advance Directives: Yes Advance Directives on File: Yes Advance Directives Date on File: 02/07/22 service: No Current occupational status: unemployed Physical Exam ED Vital Signs: Vital Signs - 24 hr 11/24/22 12:00 Temperature 98.1 F Pulse Rate 135 H Respiratory Rate 18 Blood Pressure 119/91 H Pulse Oximetry 97 Oxygen Delivery Method Room Air BMI result Body Mass Index 20.3 General appearance comfortable cooperative no acute distress The scalp there were [address], wound was well approximated there was no surrounding erythema no discharge from the wound no signs of any infection Course Course Course Narrative: 2 john were easily removed without wound dehiscence and well-appearing patient was discharged Discharge Plan Discharge Clinical Impression: Removal of john Patient Disposition: Home, Self-Care Additional Instructions: John were removed, no sign of infection, okay for all activity Prescriptions: No Action (DME) lancets [TRUEplus Lancets] 33 gauge misc See Rx Instructions .Route Qty: 200 11RF Rx Instructions: Four times a day (DME) pen needle, diabetic [BD July 2nd Gen Pen Needle] 32 gauge x 5/32 needle See Rx Instructions .MEDSUPPLY Qty: 150 4RF Rx Instructions: 5 times a day (DME) FreeStyle Lite Strips Strip See Rx Instructions .Route Qty: 150 11RF Rx Instructions: Four times a day quetiapine 400 mg tablet 1 tab PO BEDTIME insulin aspart U-100 [Novolog FlexPen U-100 Insulin] 100 unit/mL (3 mL) insulin pen 0 sliding scale dose subcut QIDACHS Protocol: Insulin Correction Scale Less than or equal to 110 ---- Give (units): 0 111 to 150 Give (units): 0 151 to 200 Give (units): 2 201 to 250 Give (units): 4 251 to 300 Give (units): 6 301 to 350 Give (units): 8 Greater than 350 Give (units): 10 Call MD if Blood Glucose > : 350 hydroxyzine pamoate 25 mg capsule 1 cap PO BID PRN (Reason: anxiety) insulin glargine [Lantus Solostar U-100 Insulin] 100 unit/mL (3 mL) insulin pen 30 unit subcut DAILY Qty: 15 0RF quetiapine 400 mg Tablet Extended Release 24 Hr 400 mg PO DAILY@0900 multivitamin [Daily Multi-Vitamin] Tablet 1 tab PO DAILY naltrexone 50 mg Tablet 50 mg PO DAILY trazodone 150 mg Tablet 225 mg PO BEDTIME PRN (Reason: Sleep) pyridoxine (vitamin B6) [Vitamin B-6] 50 mg Tablet 50 mg PO DAILY lamotrigine 200 mg tablet 200 mg PO BID zolpidem 5 mg tablet 1 tab PO BEDTIME clonidine HCl 0.2 mg tablet 0.2 mg PO BID citalopram 40 mg tablet 40 mg PO DAILY thiamine HCl (vitamin B1) 100 mg tablet 100 mg PO DAILY folic acid 1 mg tablet 1 mg PO DAILY magnesium oxide 400 mg (241.3 mg magnesium) tablet 400 mg PO BID Interventions: ED Discharge Assessment Last Done: 11/24/22 12:21 Discharge Date/Time: 11/24/22 12:22
== END 2022-11-24 12:22 | disposition home or self-care (01) ==
PROVIDERS: Emergency Provider Emergency Medicine Emergency Medical Services; PCP Internal Medicine
DX: Z48.02 Encounter for removal of sutures (principal)
CPT/HCPCS: 99282

== ENCOUNTER 2023-01-07 20:18 | Inpatient (IN) | payer OTHER, SELFPAY ==
--- NOTE | ~2023-01-07 | CT_ITS ---
EXAMINATION: HEAD CT WITHOUT CONTRAST CERVICAL SPINE CT WITHOUT CONTRAST CLINICAL INFORMATION: Fall. Head injury. Neck pain. COMPARISON: 09/25/2022 TECHNIQUE: Contiguous axial imaging of the head was performed without the administration of IV contrast. Axial multidetector volumetric images were also performed through the cervical spine without intravenous contrast. Multiplanar reconstructed images in coronal and sagittal orientations were submitted. This CT examination was performed using dose optimization techniques as appropriate, variously including the following: *Automated exposure control *Adjustment of mA and/or kV according to patient size (this includes techniques or standardized protocols for targeted exams where dose is matched to indication/reason for exam; i.e. extremities or head) *Use of iterative reconstruction technique DOSE: 923 mGy-cm FINDINGS: HEAD: There is no evidence of acute intracranial hemorrhage or territorial infarction. No abnormal mass-effect or midline shift. No extra-axial fluid collections. Person to white matter differentiation is well preserved. The ventricles are normal in size and configuration. No acute parenchymal abnormalities. Calcific atherosclerosis is present within the cavernous segments of the internal carotid arteries. The soft tissues and osseous structures are normal. The sinuses and mastoid air cells are clear. CERVICAL SPINE: Vertebral body heights are normal. No fractures of the vertebral bodies or posterior elements. Vertebral alignment is normal. No subluxation. Degenerative osteophytes and sclerosis are present at the atlantodental articulation, though normal alignment is maintained. Craniocervical junction is normal. Intervertebral disc heights are normal. No significant degenerative disc disease. Facet joints are normal. Central canal and neural foramina appear patent without appreciable stenoses. No significant paravertebral soft tissue swelling. Atherosclerotic calcifications are present in the carotid arteries. Imaged portions of the lung apices are clear. CT/CT cervical spine wo IV con IMPRESSION: 1. No acute intracranial pathology. 2. No acute fracture or malalignment in the cervical spine.
--- NOTE | ~2023-01-07 | CT_ITS ---
EXAMINATION: CT ABDOMEN AND PELVIS WITHOUT CONTRAST CLINICAL INFORMATION: Elevated LFTs. Abdominal pain. COMPARISON: 09/25/2022 TECHNIQUE: Multidetector volumetric imaging was performed from the superior aspect of the liver through the pubic symphysis. Sagittal and coronal reformatted images were obtained on the technologist's workstation. This CT examination was performed using dose optimization techniques as appropriate, variously including the following: *Automated exposure control *Adjustment of mA and/or kV according to patient size (this includes techniques or standardized protocols for targeted exams where dose is matched to indication/reason for exam; i.e. extremities or head) *Use of iterative reconstruction technique DLP: 313 mGy-cm FINDINGS: LUNG BASES: The visualized lung bases are unremarkable. LIVER, GALLBLADDER, AND BILIARY TREE: The liver is decreased in attenuation. The liver is enlarged and measures 19.3 cm in sagittal dimension. No suspicious hepatic lesion or biliary ductal dilatation is present. The gallbladder is hyperdense possibly containing sludge versus stones.. PANCREAS: Diffuse parenchymal calcifications. No dilatation of the main pancreatic duct. SPLEEN: Not enlarged. ADRENAL GLANDS: No adrenal masses. KIDNEYS AND URETERS: The kidneys are is symmetric in size. Punctate bilateral nonobstructing renal calculi. No perinephric stranding. No hydronephrosis. BLADDER: Unremarkable. GASTROINTESTINAL TRACT: There is marked fecal retention in the colon. There is gastric distention. No abnormally dilated loops of small bowel appreciated. ABDOMINAL WALL: No significant hernia is appreciated. LYMPH NODES: Nonspecific stranding at the root of the mesentery. No bulky abdominal or pelvic lymphadenopathy. VASCULAR: No abdominal aortic aneurysm. Retroaortic left renal vein. PELVIC VISCERA: The prostate gland and seminal vesicles are unremarkable. OSSEOUS STRUCTURES: No destructive bone lesions. CT/CT abdomen pelvis wo IV con IMPRESSION: Hepatomegaly and hepatic steatosis. Hyperdensity filling the gallbladder lumen. This could represent sludge. Advise correlation with right upper quadrant ultrasound. Nephrolithiasis without hydronephrosis. Nonspecific stranding at the root of the mesentery, surrounding the celiac axis and superior mesenteric artery. Chronic pancreatitis. Constipation.
[2023-01-07 20:24] VITALS: BP 125/91; BP 142/98; PULSE 106; PULSE 123; RESP 18; TEMP 36.8; O2SAT 100; O2SAT 99; BMI 23.6
--- NOTE | 2023-01-07 20:43 | ECG_ITS ---
Test Reason : ETOH Blood Pressure : / mmHG Vent. Rate : 083 BPM Atrial Rate : 083 BPM P-R Int : 162 ms QRS Dur : 090 ms QT Int : 348 ms P-R-T Axes : 066 030 065 degrees QTc Int : 408 ms Normal sinus rhythm Normal ECG When compared with ECG of 26-SEP-2022 00:38, QT has shortened Referred By: Anna Stark Electronically Signed By:Carlos Chew
[2023-01-07] MEDS: LORazepam 1 MG TABLET 2 MG PO (20:49)
--- NOTE | 2023-01-07 20:52 | PC.NURSE ---
CIWA of 16, MD aware. orders in for labs and EKG. ativan given per order. will cont to raymond.
[2023-01-07 21:37] LABS: MANUAL DIFF FLAG NO
[2023-01-07 21:38] LABS: Basophils Percent Auto 0.9 % (0-2); Hematocrit 31.6 % (42.0-52.0); Hemoglobin 10.7 g/dl (14.0-18.0); Imm Gran Abs Auto 0.12 X10*3/uL (0.00-0.03); Imm Gran Pct Auto 3.7 % (0.0-0.4); Lymphocytes Absolute Auto 0.6 X10*3/uL (1.2-4.9); Lymphocytes Percent Auto 19.6 % (20-40); Mean Corpuscular HGB Conc 33.9 g/dl (31.0-36.0); Mean Corpuscular Hemoglobin 34.6 pg (27.0-33.0); Mean Corpuscular Volume 102.3 fL (80.0-98.0); Mean Platelet Volume 8.9 fL (9.4-12.4); Monocytes Absolute Auto 0.3 X10*3/uL (0.1-1.2); Monocytes Percent Auto 8.4 % (2-11); Neutrophils Absolute Auto 2.2 x10*3/uL (2.0-8.3); Neutrophils Percent Auto 67.4 % (45-73); Platelet Count 144 X10*3/uL (160-400); Red Blood Count 3.09 X10*6/uL (4.60-5.80); Red Cell Distribution Width 12.7 % (11.0-16.0); White Blood Count 3.2 X10*3/uL (4.8-10.8)
[2023-01-07 21:46] LABS: INTERNATIONAL NORM RATIO 1.1 (0.9-1.1); Prothrombin Time 12.2 SEC (10.0-13.1)
[2023-01-07 22:35] LABS: Alanine Aminotransferase 54 U/L (0-40); Albumin Level 3.7 g/dL (3.5-5.0); Alkaline Phosphatase 409 U/L (39-117); Anion Gap 27 (12-20); Aspartate Amino Transferase 64 U/L (5-37); Bilirubin Direct 3.8 mg/dL (0.0-0.5); Bilirubin Total 5.8 mg/dL (0.0-1.0); Blood Urea Nitrogen 12 mg/dL (9-16); Calcium 9.1 mg/dL (8.4-10.2); Carbon Dioxide 17 mmol/L (22-29); Chloride 94 mmol/L (96-108); Creatinine Clr Calc Pharmacy 107.2; Estimated Glomerular Filt Rate > 60; Ethanol < 10 mg/dL; Glucose Random 270 mg/dL (60-115); Magnesium 1.7 mg/dL (1.6-2.6); Potassium 4.6 mmol/L (3.3-5.1); Sodium 133 mmol/L (135-145); Total Protein 6.6 g/dL (6.5-8.0)
[2023-01-07 22:52] VITALS: BP 117/88; PULSE 92; TEMP 36.9; O2SAT 100
--- NOTE | 2023-01-08 00:19 | ED_ITS ---
HPI - General Adult General Chief complaint: ETOH/Substance Use Stated complaint: fall etoh Time Seen by Provider: 01/08/23 00:09 Source: patient and EMS Mode of arrival: EMS Limitations: no limitations History of Present Illness HPI narrative: 42-year-old male history of alcohol abuse, patient was trying to quit drinking cold turkey did not drink for the past 6 days, been having multiple falls, feeling anxious, nausea, diffuse tremors, multiple falls announce patient fell 3 times in the last 2 days at home. Patient declined using any drugs. No AVH. Related Data Home Medications Medication Instructions Recorded Confirmed clonidine HCl 0.2 mg tablet 0.2 mg PO BID 11/11/20 09/26/22 lamotrigine 200 mg tablet 200 mg PO BID 01/28/22 09/26/22 citalopram 40 mg tablet 40 mg PO DAILY 02/08/22 09/26/22 folic acid 1 mg tablet 1 mg PO DAILY 02/08/22 09/26/22 magnesium oxide 400 mg (241.3 mg 400 mg PO BID 02/08/22 09/26/22 magnesium) tablet thiamine HCl (vitamin B1) 100 mg 100 mg PO DAILY 02/08/22 09/26/22 tablet zolpidem 5 mg tablet 1 tab PO BEDTIME 03/14/22 09/26/22 insulin aspart U-100 100 unit/mL 0 sliding scale dose subcut QIDACHS 06/12/22 09/26/22 (3 mL) subcutaneous pen (Novolog FlexPen U-100 Insulin aspart) quetiapine 400 mg tablet 1 tab PO BEDTIME 06/12/22 09/26/22 hydroxyzine pamoate 25 mg capsule 1 cap PO BID PRN anxiety 09/04/22 09/26/22 multivitamin (Daily Multi-Vitamin 1 tab PO DAILY 09/26/22 09/26/22 tablet) naltrexone 50 mg tablet 50 mg PO DAILY 09/26/22 09/26/22 pyridoxine (vitamin B6) 50 mg 50 mg PO DAILY 09/26/22 09/26/22 tablet (Vitamin B-6) quetiapine 400 mg tablet,extended 400 mg PO DAILY@0900 09/26/22 09/26/22 release 24 hr trazodone 150 mg tablet 225 mg PO BEDTIME PRN Sleep 09/26/22 09/26/22 Previous Rx's Medication Instructions Recorded lancets 33 gauge (TRUEplus Lancets) #200 ea 03/08/21 pen needle, diabetic 32 gauge x #150 ea 02/07/22 (BD July 2nd Gen Pen Needle) blood sugar diagnostic (FreeStyle #150 ea 03/20/22 Lite Strips) insulin glargine 100 unit/mL (3 30 unit (0.3 mL) subcut DAILY #15 09/06/22 mL) subcutaneous pen (Lantus mL Solostar U-100 Insulin) Allergies Allergy/AdvReac Type Severity Reaction Status Date / Time meropenem [MEROPENEM] Allergy Unknown SWELLING Verified 09/25/22 22:45 penicillin G procaine Allergy Unknown itching Verified 09/25/22 22:45 Penicillins [PENICILLINS] Allergy Unknown SWELLING Verified 09/25/22 22:45 Review of Systems Review of Systems: All other systems are reviewed and are negative Constitutional: Reports as per HPI and Reports no additional constitutional complaints Eyes: Reports as per HPI and Reports no additional eye complaints Reports system reviewed and no additional complaints, except as documented Cardiovascular: Reports as per HPI and Reports no additional cardiovascular complaints Respiratory: Reports as per HPI and Reports no additional respiratory complaints Gastrointestinal: Reports as per HPI and Reports no additional gastrointestinal complaints Genitourinary: Reports no additional female genitourinary complaints Musculoskeletal: Reports no additional musculoskeletal complaints Skin/Breast: Reports system reviewed and no additional complaints, except as docu Psychiatric: Reports no additional psychiatric complaints Endocrine: Reports no additional endocrine complaints Hematologic/Lymphatic: Reports no additional hematologic/lymphatic complaints Allergic/Immunologic: Reports no additional allergic/immunologic complaints Reports system reviewed and no additional complaints, except as documented and Reports Abnormal speech present [facility] Past Medical History Medical History Alcohol use disorder Bacteremia Bipolar disorder 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 Mother Diabetes Social History Social History Household Members: None Household Members Other:: with dog Housing: Apartment Do you presently have visiting nurse or other home services: No Alcohol intake: current Alcohol intake frequency: 3 or more drinks per day Patient Tobacco Use Status: Never used Tobacco Smoked in Last 30 Days: No e-Cigarette/Vaping Use: Never Used Second Hand Smoke Exposure: No Use of substances other than those prescribed or required for medical reasons: No Advance Directives: Yes Advance Directives on File: Yes Advance Directives Date on File: 02/07/22 service: No Current occupational status: unemployed Physical Exam ED Vital Signs: Vital Signs - 24 hr 01/07/23 20:24 01/07/23 22:52 Temperature 98.2 F 98.4 F Pulse Rate 106 H 92 Respiratory Rate 18 Blood Pressure 125/91 H 117/88 Pulse Oximetry 100 100 Oxygen Delivery Method Room Air Room Air BMI result Body Mass Index 23.6 Vital signs have been reviewed as appeared to be correct. Blood pressure normal. Heart rate normal. Respiration rate normal. Temperature normal. Oxygen saturation normal. Appearance: Anxious, Oriented X3. No acute distress, bilateral fine tremors at rest Head: Normal external exam. Normocephalic. Atraumatic. No Valente signs noted. No raccoon eyes noted Eyes: PERRLA. EOMI. Conjunctiva and sclera normal. Eyelids normal. ENT: TM's Normal. Pharynx normal. Uvula midline. Moist mucous membranes. No trismus noted. No drooling noted. No muffled voice noted. Neck: Normal inspection. Neck supple. FROM. No adenopathy. Thyroid Normal. No meningeal signs. No neck mass noted. CVS: Normal heart rate and rhythm. Heart sound normal. No murmurs noted. Pulses normal throughout. Respiratory: No respiratory distress. Painless inspiration. Breath sounds normal. No wheezes/rales/rhonchi noted. Chest nontender. No accessory muscle usage noted or decreased air movement noted. Abdomen: Soft and nontender. Bowel sounds normal in all 4 quadrants. No distention noted. No organomegaly noted. No visible injury noted. Back: No CVA tenderness. Full range of motion noted. Skin: Skin warm and dry. Normal skin color. Normal skin turgor. No rashes/lesions/lacerations noted. Extremities: No lower extremity edema. Extremities exhibit normal range of motion. Extremities nontender. Neuro: Oriented X 3. Cranial nerve exam: II-XII are grossly intact No motor deficit. No sensory deficit. Reflexes normal. Course Course Course Narrative: Multiple falls due to alcohol withdrawal with CIWA score of 21 start the patient on phenobarb and admit to the hospital. Head/cervical spine CT is unremarkable for injury or trauma. Medications Administered Discontinued Medications Generic Name Dose Route Start Last Admin Trade Name Freq PRN Reason Stop Dose Admin Lorazepam 2 mg 01/07/23 20:42 01/07/23 20:49 Lorazepam 1 Mg Tablet PO 01/07/23 20:43 2 mg ONCE ONE Administration Medical Decision Making Differential Diagnosis Differential Diagnoses: The differential diagnosis associated with the presentation includes (Severe ETOH withdrawal symptoms, intracranial bleed, cervical spine injury, electrolyte abnormalities and dehydration, severe anemia.) Admission/Observation Consideration of admission/observation: Escalation of care including admission/observation considered Consult Healthcare Provider Management of the patient was discussed with: Hospitalist (By Dr. Sotelo) Lab Data MDM Lab Attestation statement: I reviewed the patient's lab results. 01/07/23 21:32 01/07/23 21:32 Labs: Lab Results 01/07/23 01/07/23 01/07/23 Range/Units 21:32 21:32 21:32 WBC 3.2 L (4.8-10.8) X10*3/uL RBC 3.09 L (4.60-5.80) X10*6/uL Hgb 10.7 L (14.0-18.0) g/dl Hct 31.6 L D (42.0-52.0) % MCV 102.3 H (80.0-98.0) fL MCH 34.6 H (27.0-33.0) pg MCHC 33.9 (31.0-36.0) g/dl RDW 12.7 (11.0-16.0) % Plt Count 144 L (160-400) X10*3/uL MPV 8.9 L (9.4-12.4) fL Immature Gran % (Auto) 3.7 H (0.0-0.4) % Neut % (Auto) 67.4 (45-73) % Lymph % (Auto) 19.6 L (20-40) % [place] % (Auto) 8.4 (2-11) % Eos % (Auto) 0.0 (0-4) % Baso % (Auto) 0.9 (0-2) % Lymph # (Auto) 0.6 L (1.2-4.9) X10*3/uL [place] # (Auto) 0.3 (0.1-1.2) X10*3/uL Eos # (Auto) 0.0 (0.0-0.4) X10*3/uL Baso # (Auto) 0.0 (0.0-0.2) X10*3/uL Abs Immat Gran (auto) 0.12 H (0.00-0.03) X10*3/uL Absolute Neuts (auto) 2.2 (2.0-8.3) x10*3/uL Absolute Nucleated RBC 0.000 (0.0-0.012) X10*3/uL Nucleated RBC % (auto) 0.0 (0.0-0.2) /100WBC PT 12.2 (10.0-13.1) SEC INR 1.1 (0.9-1.1) Sodium 133 L (135-145) mmol/L Potassium 4.6 D (3.3-5.1) mmol/L Chloride 94 L (96-108) mmol/L Carbon Dioxide 17 L (22-29) mmol/L Anion Gap 27 H (12-20) BUN 12 (9-16) mg/dL Creatinine 0.83 (0.5-1.4) mg/dL Estim Creat Clear Calc 107.2 Estimated GFR > 60 Random Glucose 270 H (60-115) mg/dL Calcium 9.1 D (8.4-10.2) mg/dL Magnesium 1.7 (1.6-2.6) mg/dL Total Bilirubin 5.8 H (0.0-1.0) mg/dL Direct Bilirubin 3.8 H (0.0-0.5) mg/dL AST 64 H (5-37) U/L ALT 54 H (0-40) U/L Alkaline Phosphatase 409 H (39-117) U/L Total Protein 6.6 (6.5-8.0) g/dL Albumin 3.7 (3.5-5.0) g/dL Ethyl Alcohol < 10 mg/dL Independent Interpretation I performed an independent interpretation of an: CT Scan (Head/cervical spine: No acute intra cranial pathology, no cervical spine pathology.) Radiology Impression Discussion of test interpretation with radiology: I have reviewed the radiologist's reading. Chronic Conditions Patient?s care impacted by: Other (Alcohol abuse) Social Determinants Patient?s care significantly limited by Social Determinants of Health including: Alcoholism and drug addiction in family Discharge Plan Discharge Clinical Impression: Alcohol withdrawal syndrome Patient Disposition: Admitted As Inpatient
[2023-01-08] MEDS: PHENobarbitaL sodium 130 MG/ML IM ONCE 265 MG IM (00:40)
[2023-01-08 01:06] VITALS: BP 119/81; PULSE 88; RESP 16; O2SAT 98
[2023-01-08] MEDS: Enoxaparin Sodium 40 MG/0.4 ML SYRINGE SUBCUT (02:00)
--- NOTE | 2023-01-08 02:00 | P.HPHOSP_ITS ---
History of Present Illness Date of Service: 01/08/23 Chief Complaint: fall, withdrawal, weakness 42-year-old with frequent admissions for alcohol abuse withdrawals and falls comes into the hospital with similar presentation. Patient has a past medical history of alcohol abuse with history of withdrawals, bipolar disorder, diabetes and has had multiple admissions in the past for similar fib symptoms. Patient reports that he stopped drinking alcohol about 6 days ago with intention of self detoxing, he then became progressively weaker, and has had multiple falls with syncopal episodes at home therefore he decided to come to the hospital. He still feels that he is withdrawing, he is anxious jittery, denies any hallucinations at this time. He denies any chest pain, no headache or change in vision, reports no trauma, reports diffuse abdominal pain, and some nausea with no vomiting., no diarrhea constipation, no urinary symptoms and no lower extremity edema Pt has a CIWA of 21 on arrival. His other vitals significant for tachycardia, otherwise stable Labs are significant for WBC count of 3.2 which is chronically low, hemoglobin of 9.2, hematocrit 27.1, close to his baseline, sodium 133, chronically around the same, elevated liver function with a total bili of 5.8, direct bili of 3.8, AST of 64, ALT of 54, alk-phos 59, Abdominal CT pending, Head CT negative, cervical CT negative Patient was started on phenobarb protocol in the ED and will be admitted for further management Review of Systems Review of Systems: Yes all other systems are reviewed and are negative [facility] Medical History Alcohol use disorder Bacteremia Bipolar disorder 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 Mother Diabetes Surgical History No pertinent past surgical history Social History Household Members: None Household Members Other:: with dog Housing: Apartment Do you presently have visiting nurse or other home services: No Alcohol intake: current Alcohol intake frequency: 3 or more drinks per day Patient Tobacco Use Status: Never used Tobacco Smoked in Last 30 Days: No e-Cigarette/Vaping Use: Never Used Second Hand Smoke Exposure: No Use of substances other than those prescribed or required for medical reasons: No Advance Directives: Yes Advance Directives on File: Yes Advance Directives Date on File: 02/07/22 service: No Current occupational status: unemployed Meds Allergies Allergy/AdvReac Type Severity Reaction Status Date / Time meropenem [MEROPENEM] Allergy Unknown SWELLING Verified 09/25/22 22:45 penicillin G procaine Allergy Unknown itching Verified 09/25/22 22:45 Penicillins [PENICILLINS] Allergy Unknown SWELLING Verified 09/25/22 22:45 Active Medications: Current Medications Pharmacy Consult (Consult Rx Etoh Phenob Im/Po) 1 each MISCELLANE ONCE PRN; Protocol PRN Reason: Consult order Phenobarbital Sodium (Phenobarbital Sodium 130 Mg/Ml Vial Im Q3hx2) 198 mg IM Q3H MAINOR Stop: 01/08/23 06:31 Home Medications Medication Instructions Recorded Confirmed Last Taken Type clonidine HCl 0.2 mg tablet 0.2 mg PO BID 11/11/20 09/26/22 09/20/22 History lamotrigine 200 mg tablet 200 mg PO BID 01/28/22 09/26/22 09/20/22 History citalopram 40 mg tablet 40 mg PO DAILY 02/08/22 09/26/22 09/20/22 History folic acid 1 mg tablet 1 mg PO DAILY 02/08/22 09/26/22 09/20/22 History magnesium oxide 400 mg (241.3 mg 400 mg PO BID 02/08/22 09/26/22 09/20/22 History magnesium) tablet thiamine HCl (vitamin B1) 100 mg 100 mg PO DAILY 02/08/22 09/26/22 09/20/22 His tory tablet zolpidem 5 mg tablet 1 tab PO BEDTIME 03/14/22 09/26/22 09/20/22 History insulin aspart U-100 100 unit/mL 0 sliding scale dose subcut QIDACHS 06/12/22 09/26/22 09/20/22 History (3 mL) subcutaneous pen (Novolog FlexPen U-100 Insulin aspart) quetiapine 400 mg tablet 1 tab PO BEDTIME 06/12/22 09/26/22 09/20/22 History hydroxyzine pamoate 25 mg capsule 1 cap PO BID PRN anxiety 09/04/22 09/26/22 Unknown History multivitamin (Daily Multi-Vitamin 1 tab PO DAILY 09/26/22 09/26/22 09/20/22 History tablet) naltrexone 50 mg tablet 50 mg PO DAILY 09/26/22 09/26/22 09/20/22 History pyridoxine (vitamin B6) 50 mg 50 mg PO DAILY 09/26/22 09/26/22 09/20/22 History tablet (Vitamin B-6) quetiapine 400 mg tablet,extended 400 mg PO DAILY@0900 09/26/22 09/26/22 09/20/22 History release 24 hr trazodone 150 mg tablet 225 mg PO BEDTIME PRN Sleep 09/26/22 09/26/22 09/20/22 History Physical Exam Vital Signs and Narrative: Vital Signs: Last Vital Signs Temp 98.4 F 01/07/23 22:52 Pulse 88 01/08/23 01:06 Resp 16 01/08/23 01:06 BP 119/81 01/08/23 01:06 Pulse Ox 98 01/08/23 01:06 O2 Del Method Room Air 01/08/23 01:06 BMI result Body Mass Index 23.6 Const: Other: Appears cachectic General: cooperative and no acute distress Orientation/consciousness: patient oriented x3 Eyes: General: appearance normal, both eyes and all related structures Resp: Effort & Inspection: normal respiratory effort Auscultation: clear to auscultation bilaterally Cardio: Rate: regular rate Rhythm: regular rhythm GI: Other: Abdominal tenderness diffusely Palpation (GI): Soft to palpation Auscultation: normal bowel sounds Skin: General skin exam: no rashes or lesions noted Neuro: General: patient oriented x3 Cognition (Neuro): normal cognition Extrem: General: Yes normal to inspection and Yes no pedal edema Results Labs 01/07/23 21:32 01/07/23 21:32 Labs: Laboratory Results - last 24 hr 01/07/23 01/07/23 01/07/23 21:32 21:32 21:32 MCV 102.3 H MCH 34.6 H MCHC 33.9 RDW 12.7 Plt Count 144 L MPV 8.9 L Immature Gran % (Auto) 3.7 H Neut % (Auto) 67.4 Lymph % (Auto) 19.6 L [place] % (Auto) 8.4 Eos % (Auto) 0.0 Baso % (Auto) 0.9 Lymph # (Auto) 0.6 L [place] # (Auto) 0.3 Eos # (Auto) 0.0 Baso # (Auto) 0.0 Abs Immat Gran (auto) 0.12 H Absolute Neuts (auto) 2.2 Absolute Nucleated RBC 0.000 Nucleated RBC % (auto) 0.0 PT 12.2 INR 1.1 Anion Gap 27 H Estim Creat Clear Calc 107.2 Estimated GFR > 60 Random Glucose 270 H Calcium 9.1 D Magnesium 1.7 Total Bilirubin 5.8 H Direct Bilirubin 3.8 H AST 64 H ALT 54 H Alkaline Phosphatase 409 H Total Protein 6.6 Albumin 3.7 Ethyl Alcohol < 10 Imaging Radiologist's Impressions: Impressions Cervical Spine CT 01/08/23 00:41 IMPRESSION: 1. No acute intracranial pathology. 2. No acute fracture or malalignment in the cervical spine. Head CT 01/08/23 00:41 IMPRESSION: 1. No acute intracranial pathology. 2. No acute fracture or malalignment in the cervical spine. Assessment and Plan (1) Alcohol abuse with withdrawal: Status: Acute (2) Elevated LFTs: Status: Acute (3) Abdominal pain: Status: Acute (4) Syncope: Status: Resolved (5) Fall: Status: Resolved Plan 32-year-old male with past medical history of alcohol abuse with frequent admissions for the same presents the hospital with complaints of alcohol withdrawals and falls # acute alcohol withdrawal - history of alcohol abuse, reports stopped drinking 6 days ago continues to have withdrawal,with CIWA of 21 - start on phenobarb protocol - will supplement folic and thiamine - monitor withdrawal symptoms # elevated LFTs/abdominal pain - acute - has diffuse abdominal pain - likely secondary to alcohol abuse - will obtain lipase, abdominal pelvic CT pending - trend LFTs # syncope - secondary to alcohol abuse - no EKG changes - monitor # fall - secondary to above - PT OT prior to discharge # diabetes - continue home insulin - will add low-dose sliding scale insulin -diabetic diet DVT prophylaxis: Lovenox Time Spent With Patient Time: Total time managing care of this patient today ____ minutes. Quality Stroke Does the patient have a stroke diagnosis?: No VTE Prior VTE?: No VTE Risk Level:: Medical - moderate - high VTE Device Contraindication: Treatment Not Indicated VTE Drug Contraindication: N/A - Med Ordered
[2023-01-08] MEDS: PHENobarbitaL sodium 130 MG/ML VIAL IM Q3Hx2 198 MG IM ×2 (03:53→07:15)
[2023-01-08 05:09] LABS: Basophils Percent Auto 0.9 % (0-2); Eosinophils Absolute Auto 0.1 X10*3/uL (0.0-0.4); Eosinophils Percent Auto 1.9 % (0-4); Hematocrit 27.1 % (42.0-52.0); Hemoglobin 9.2 g/dl (14.0-18.0); Imm Gran Pct Auto 3.1 % (0.0-0.4); Lymphocytes Absolute Auto 1.2 X10*3/uL (1.2-4.9); Lymphocytes Percent Auto 35.7 % (20-40); MANUAL DIFF FLAG NO; Mean Corpuscular HGB Conc 33.9 g/dl (31.0-36.0); Mean Corpuscular Hemoglobin 33.9 pg (27.0-33.0); Mean Platelet Volume 9.1 fL (9.4-12.4); Monocytes Absolute Auto 0.4 X10*3/uL (0.1-1.2); Monocytes Percent Auto 12.1 % (2-11); Neutrophils Absolute Auto 1.5 x10*3/uL (2.0-8.3); Neutrophils Percent Auto 46.3 % (45-73); Platelet Count 129 X10*3/uL (160-400); Red Blood Count 2.71 X10*6/uL (4.60-5.80); Red Cell Distribution Width 12.5 % (11.0-16.0); White Blood Count 3.2 X10*3/uL (4.8-10.8)
[2023-01-08 05:24] LABS: Anion Gap 17 (12-20); Blood Urea Nitrogen 13 mg/dL (9-16); Calcium 8.2 mg/dL (8.4-10.2); Carbon Dioxide 22 mmol/L (22-29); Chloride 98 mmol/L (96-108); Creatinine Clr Calc Pharmacy 115.6; Estimated Glomerular Filt Rate > 60; Glucose Random 187 mg/dL (60-115); Potassium 3.6 mmol/L (3.3-5.1); Sodium 133 mmol/L (135-145)
[2023-01-08 06:50] VITALS: BP 109/81; PULSE 82; RESP 16; O2SAT 99
[2023-01-08] MEDS: 0.9 % Sodium Chloride 1,000 ML 100 ML IVCONT ×2 (06:50→16:45)
[2023-01-08 06:53] LABS: Lipase 4 U/L (8-78)
[2023-01-08 07:20] LABS: Glucose, Whole Blood 163 mg/dL (60-115)
[2023-01-08] MEDS: Insulin Lispro 100 UNIT/ML 3 ML VIAL SUBCUT ×3 (07:53→21:20)
[2023-01-08] MEDS: Thiamine HCL 100 MG TABLET PO (08:49)
[2023-01-08] MEDS: Folic Acid 1 MG TABLET PO (08:49)
--- NOTE | 2023-01-08 09:31 | PHA.MEDREC ---
Pharmacy Consult ? Medication Reconciliation Pharmacy has completed the medication reconciliation. Spoke with patient to confirm his meds. He uses Novolog per sliding scale and Lantus 30 units daily (claim history shows 50u but patient reports that they recently decreased it). Some of his medications were last filled in July or before however patient says he still uses (Quetiapine ER 400mg QAM, Trazodone 200mg prn sleep, Clonidine 0.2mg BID, hydroxyzine emma 25mg BID prn).
[2023-01-08 10:36] VITALS: BP 111/82; PULSE 83; RESP 18; TEMP 36; O2SAT 100
[2023-01-08 12:08] LABS: Glucose, Whole Blood 114 mg/dL (60-115)
[2023-01-08 12:33] LABS: Glucose, Whole Blood 152 mg/dL (60-115)
--- NOTE | 2023-01-08 12:56 | PM.EVENT ---
Event Note Date of Service: 01/08/23 Event Note: 32-year-old male with past medical history of alcohol abuse with frequent admissions for the same presents the hospital with complaints of alcohol withdrawals and falls acute alcohol withdrawal history of alcohol abuse, reports stopped drinking 6 days ago continues to have withdrawal,with CIWA of 21 phenobarb protocol folic and thiamine monitor withdrawal symptoms elevated LFTs/abdominal pain acute has diffuse abdominal pain likely secondary to alcohol abuse will obtain lipase, abdominal pelvic CT pending trend LFTs syncope secondary to alcohol abuse no EKG changes monitor fall secondary to above PT OT prior to discharge diabetes continue home insulin will add low-dose sliding scale insulin diabetic diet DVT prophylaxis:? Lovenox Time Spent With Patient Time: Total time managing care of this patient today ____ minutes.
[2023-01-08 15:13] VITALS: BP 93/73; PULSE 81; RESP 18; TEMP 36.6; O2SAT 99
[2023-01-08 16:16] LABS: Glucose, Whole Blood 241 mg/dL (60-115)
[2023-01-08 19:09] VITALS: BP 92/68; PULSE 95; RESP 18; TEMP 36.3; O2SAT 99
[2023-01-08 20:52] LABS: Glucose, Whole Blood 377 mg/dL (60-115)
[2023-01-09] MEDS: Enoxaparin Sodium 40 MG/0.4 ML SYRINGE SUBCUT (01:36)
[2023-01-09] MEDS: 0.9 % Sodium Chloride 1,000 ML 100 ML IVCONT ×2 (01:36→11:49)
[2023-01-09 04:00] VITALS: BP 111/85; PULSE 77; RESP 16; TEMP 36.2; O2SAT 99
[2023-01-09 06:26] LABS: Anion Gap 11 (12-20); Blood Urea Nitrogen 8 mg/dL (9-16); Calcium 7.6 mg/dL (8.4-10.2); Carbon Dioxide 20 mmol/L (22-29); Chloride 106 mmol/L (96-108); Creatinine Clr Calc Pharmacy 134.9; Estimated Glomerular Filt Rate > 60; Glucose Random 205 mg/dL (60-115); Potassium 3.5 mmol/L (3.3-5.1); Sodium 133 mmol/L (135-145)
[2023-01-09 07:21] VITALS: BP 119/90; PULSE 79; RESP 18; TEMP 36.3; O2SAT 100
[2023-01-09 07:43] LABS: Glucose, Whole Blood 228 mg/dL (60-115)
[2023-01-09] MEDS: PHENobarbitaL 15 MG TABLET 45 MG PO ×2 (07:45→21:24)
[2023-01-09] MEDS: Acetaminophen 325 MG TABLET 650 MG PO (07:46)
[2023-01-09] MEDS: cloNIDine HCL 0.2 MG TABLET PO ×2 (07:46→21:24)
[2023-01-09] MEDS: lamoTRIgine 100 MG TABLET 200 MG PO ×2 (07:46→21:24)
[2023-01-09] MEDS: Magnesium Oxide 400 MG TABLET PO ×2 (07:46→21:24)
[2023-01-09] MEDS: Thiamine HCL 100 MG TABLET PO (07:46)
[2023-01-09] MEDS: Multivitamin TABLET 1 TAB PO (07:46)
[2023-01-09] MEDS: Folic Acid 1 MG TABLET PO (07:47)
[2023-01-09] MEDS: Escitalopram Oxalate 20 MG TABLET PO (07:47)
[2023-01-09] MEDS: Insulin Glargine,Hum.rec.anlog 100 UNIT/ML 10 ML VIAL 30 UNIT SUBCUT (07:49)
[2023-01-09] MEDS: Insulin Lispro 100 UNIT/ML 3 ML VIAL SUBCUT (07:50)
[2023-01-09 08:25] LABS: Hematocrit 28.4 % (42.0-52.0); Hemoglobin 9.6 g/dl (14.0-18.0); Mean Corpuscular HGB Conc 33.8 g/dl (31.0-36.0); Mean Corpuscular Hemoglobin 34.5 pg (27.0-33.0); Mean Corpuscular Volume 102.2 fL (80.0-98.0); Mean Platelet Volume 9.2 fL (9.4-12.4); Platelet Count 148 X10*3/uL (160-400); Red Blood Count 2.78 X10*6/uL (4.60-5.80); Red Cell Distribution Width 12.5 % (11.0-16.0); White Blood Count 3.6 X10*3/uL (4.8-10.8)
[2023-01-09] MEDS: QUEtiapine Fumarate 200 MG TABLET PO ×2 (08:58→21:24)
--- NOTE | 2023-01-09 09:31 | MHC.CM.PN ---
IMM DELIVERED CM MET WITH PT AT BEDSIDE. PT LIVES ALONE IN AN APT. USES A CANE FOR MOBILITY. HAS MEALS DELIVERED VIA [employer]. NO COVID VAX +HCP ON FILE. PCP DR. LIS FELDMAN AT [facility] [facility]: HOME WITH NO SERVICES ANTICIPATED. PT WILL NEED C SHUTTLE FOR TRANSPORT. CM WILL CONTINUE TO FOLLOW FOR CHANGE IN PLAN/DC NEEDS
[2023-01-09 11:29] LABS: Glucose, Whole Blood 107 mg/dL (60-115)
[2023-01-09 12:00] VITALS: BP 106/69; PULSE 94; RESP 20; TEMP 36.3; O2SAT 99
--- NOTE | 2023-01-09 12:51 | HO.PM.IMPN ---
Subjective Subjective Date of Service: 01/09/23 Review of Systems Follow up alcohol intoxication, weakness feels better but still weak Physical Exam Vital Signs: Vital Signs: Last Vital Signs Temp 97.3 F 01/09/23 07:21 Pulse 79 01/09/23 07:21 Resp 18 01/09/23 07:21 BP 119/90 H 01/09/23 07:21 Pulse Ox 100 01/09/23 07:21 O2 Del Method Room Air 01/09/23 07:21 BMI result Body Mass Index 23.6 Appearing in no acute distress, thin and frail lung sounds are clear to auscultation heart regular rate rhythm, clear S1, S2 positive bowel sounds, abdomen is soft, nontender neuro patient is alert x3, no focal deficits Objective Data Active Medications Acetaminophen (Acetaminophen 325 Mg Tablet) 650 mg PO Q6H PRN PRN Reason: Pain, Mild (Pain Scale 1-3) Last Admin: 01/09/23 07:46 Dose: 650 mg Documented By: PRADEEP Clonidine HCl (Clonidine Hcl 0.2 Mg Tablet) 0.2 mg PO BID [facility]; Protocol Last Admin: 01/09/23 07:46 Dose: 0.2 mg Documented By: PRADEEP Docusate Sodium (Docusate Sodium 100 Mg Capsule) 100 mg PO DAILY PRN PRN Reason: Constipation Enoxaparin Sodium (Enoxaparin Sodium 40 Mg/0.4 Ml Syringe) 40 mg SUBCUT Q24H [facility] Last Admin: 01/09/23 01:36 Dose: 40 mg Documented By: [place] Escitalopram Oxalate (Escitalopram Oxalate 20 Mg Tablet) 20 mg PO DAILY [facility] Last Admin: 01/09/23 07:47 Dose: 20 mg Documented By: PRADEEP Folic Acid (Folic Acid 1 Mg Tablet) 1 mg PO DAILY [facility] Last Admin: 01/09/23 07:47 Dose: 1 mg Documented By: PRADEEP Glucose (Glucose Gel 15 Gm Gel..Gram.) 15 gm PO Q15M PRN; Protocol PRN Reason: per Hypoglycemia Standing Ord. Hydroxyzine HCl (Hydroxyzine Hcl 25 Mg Tablet) 25 mg PO BID PRN PRN Reason: anxiety Sodium Chloride (Ns) 1,000 mls @ 100 mls/hr IVCONT .Q10H [facility] Last Admin: 01/09/23 11:49 Dose: 100 mls/hr Documented By: PRADEEP Dextrose (D10) 250 mls @ 750 mls/hr IV Q15M PRN; Protocol PRN Reason: per Hypoglycemia Standing Ord. Insulin Glargine (Insulin Glargine,Hum.Rec.Anlog 100 Unit/Ml 10 Ml Vial) 30 unit SUBCUT DAILY [facility] Last Admin: 01/09/23 07:49 Dose: 30 unit Documented By: PRADEEP Insulin Human Lispro (Insulin Lispro 100 Unit/Ml 3 Ml Vial) 0 unit SUBCUT QIDACHS [facility]; Protocol Last Admin: 01/09/23 11:21 Dose: Not Given Documented By: PRADEEP Non-Admin Reason: No Insulin Coverage Lamotrigine (Lamotrigine 100 Mg Tablet) 200 mg PO BID [facility] Last Admin: 01/09/23 07:46 Dose: 200 mg Documented By: PRADEEP Magnesium Oxide (Magnesium Oxide 400 Mg Tablet) 400 mg PO BID [facility] Last Admin: 01/09/23 07:46 Dose: 400 mg Documented By: PRADEEP Multivitamins/Vitamin C (Multivitamin Tablet) 1 tab PO DAILY [facility] Last Admin: 01/09/23 07:46 Dose: 1 tab Documented By: PRADEEP Ondansetron HCl (Ondansetron Hcl 4 Mg/2 Ml Vial) 4 mg IVPUSH Q8H PRN PRN Reason: Nausea and Vomiting Pharmacy Consult (Consult Rx Etoh Phenob Im/Po) 1 each MISCELLANE ONCE PRN; Protocol PRN Reason: Consult order Pharmacy Consult (Consult Rx Perform Med Rec) 1 each MISCELLANE ONCE PRN PRN Reason: Consult order Phenobarbital (Phenobarbital 15 Mg Tablet) 45 mg PO BID [facility]; Protocol Stop: 01/10/23 21:01 Last Admin: 01/09/23 07:45 Dose: 45 mg Documented By: PRADEEP Phenobarbital (Phenobarbital 15 Mg Tablet) 15 mg PO BID [facility]; Protocol Stop: 01/12/23 21:01 Phenobarbital (Phenobarbital 15 Mg Tablet) 15 mg PO DAILY [facility]; Protocol Stop: 01/14/23 09:01 Quetiapine Fumarate (Quetiapine Fumarate 200 Mg Tablet) 200 mg PO BID [facility] Last Admin: 01/09/23 08:58 Dose: 200 mg Documented By: PRADEEP Quetiapine Fumarate (Quetiapine Fumarate 400 Mg Tablet) 400 mg PO BEDTIME [facility] Sodium Chloride (0.9 % Sodium Chloride Flush 3 Ml Syringe) 3 ml IVFLUSH QSHIFT [facility] Last Admin: 01/09/23 12:07 Dose: Not Given Documented By: PRADEEP Non-Admin Reason: IV Running Sodium Chloride (0.9 % Sodium Chloride Flush 3 Ml Syringe) 3 ml IVFLUSH QSHIFT [facility] Last Admin: 01/09/23 12:07 Dose: Not Given Documented By: PRADEEP Non-Admin Reason: IV Running Thiamine HCl (Thiamine Hcl 100 Mg Tablet) 100 mg PO DAILY [facility] Last Admin: 01/09/23 07:46 Dose: 100 mg Documented By: PRADEEP Trazodone HCl (Trazodone Hcl 100 Mg Tablet) 200 mg PO BEDTIME PRN PRN Reason: Sleep Zolpidem Tartrate (Zolpidem Tartrate 5 Mg Tablet) 5 mg PO BEDTIME [facility] Labs 01/09/23 08:04 01/09/23 06:03 Labs: Laboratory Results - last 24 hr 01/08/23 01/08/23 01/09/23 16:13 20:48 06:03 MCV MCH MCHC RDW Plt Count MPV Absolute Nucleated RBC Nucleated RBC % (auto) Anion Gap 11 L Estim Creat Clear Calc 134.9 Estimated GFR > 60 POC Glucose 241 H 377 H* Random Glucose 205 H Calcium 7.6 L D 01/09/23 01/09/23 01/09/23 07:24 08:04 11:19 MCV 102.2 H MCH 34.5 H MCHC 33.8 RDW 12.5 Plt Count 148 L MPV 9.2 L Absolute Nucleated RBC 0.000 Nucleated RBC % (auto) 0.0 Anion Gap Estim Creat Clear Calc Estimated GFR POC Glucose 228 H 107 Random Glucose Calcium Assessment and Plan (1) Diabetes type 2, controlled: Status: Acute (2) Abdominal pain: Status: Acute Plan 32-year-old male with past medical history of alcohol abuse with frequent admissions for the same presents the hospital with complaints of alcohol withdrawals and falls acute alcohol withdrawal history of alcohol abuse, reports stopped drinking 6 days ago continues to have withdrawal,with CIWA of 21 phenobarb protocol folic and thiamine monitor withdrawal symptoms elevated LFTs/abdominal pain has diffuse abdominal pain resolved likely secondary to alcohol abuse lipase 4, abdominal pelvic CT negative for any acute abnormality syncope secondary to alcohol abuse no EKG changes monitor fall secondary to above PT OT>str diabetes continue home insulin will add low-dose sliding scale insulin diabetic diet DVT prophylaxis:? Lovenox Attending Dr. Kramer PT recommended short-term rehab Continue hospitalization for treatment of alcohol withdrawal/intoxication requiring IV fluids, phenobarbital Time Spent With Patient Time: Total time managing care of this patient today ____ minutes. Quality Stroke Does the patient have a stroke diagnosis?: No VTE Prior VTE?: No VTE Risk Level:: Medical - moderate - high VTE Device Contraindication: Treatment Not Indicated VTE Drug Contraindication: N/A - Med Ordered
--- NOTE | 2023-01-09 14:04 | MHC.RECOVRN ---
Met with pt in 371 after consult placed to Addiction Medicine for alcohol use. Pt laying in bed, awake, alert, easily engages in conversation, familiar with t/w from previous consultations. Pt had presented to [facility] for falls/weakness as well as alcohol use and was subsequently admitted. Pt reports prior to coming to the hospital he was unable to move, was stuck on the couch and using a bucket to urinate in. Pt reports family has been very concerned. Pt reports alcohol use, 20 nips rum daily, last drink 6 days [employer]. Following last admission, pt reports leaving a message with [facility] as well as [facility] but not receiving return phone calls. Pt continues to be interested in these supports. Discussed pts weakness and ability to make it to appointments/IOP, pt reports his uncle is now staying with him and will be able to help pt get to appointments. Pt has also been evaluated by PT, will be able to further plan recovery support after discharge once dc plan is in place. Pt provided with written recovery resources, denies questions or concerns for t/w. Will continue to follow. Discussed with Reena Jose APRN.
[2023-01-09 15:07] VITALS: BP 109/79; PULSE 77; RESP 18; TEMP 36.3; O2SAT 100
[2023-01-09 16:17] LABS: Glucose, Whole Blood 116 mg/dL (60-115)
[2023-01-09 19:28] VITALS: BP 104/77; PULSE 82; RESP 14; TEMP 36.3; O2SAT 100
[2023-01-09 20:10] LABS: Glucose, Whole Blood 139 mg/dL (60-115)
[2023-01-09] MEDS: traZODone HCL 100 MG TABLET 200 MG PO (21:24)
[2023-01-09] MEDS: Zolpidem Tartrate 5 MG TABLET PO (21:24)
[2023-01-09] MEDS: QUEtiapine Fumarate 400 MG TABLET PO (21:25)
[2023-01-10] VITALS: BP 80/52; PULSE 78; RESP 16; TEMP 36.3; O2SAT 98
[2023-01-10] MEDS: 0.9 % Sodium Chloride 1,000 ML 100 ML IVCONT (00:17)
[2023-01-10] MEDS: Enoxaparin Sodium 40 MG/0.4 ML SYRINGE SUBCUT (00:18)
[2023-01-10 04:00] VITALS: BP 76/52; PULSE 79; RESP 16; TEMP 36.6; O2SAT 98
[2023-01-10] MEDS: Albumin Human 25 % 100 ML IV ×2 (04:48→05:51)
[2023-01-10 06:32] LABS: Anion Gap 10 (12-20); Blood Urea Nitrogen 8 mg/dL (9-16); Carbon Dioxide 22 mmol/L (22-29); Chloride 108 mmol/L (96-108); Estimated Glomerular Filt Rate > 60; Magnesium 1.6 mg/dL (1.6-2.6); Potassium 3.4 mmol/L (3.3-5.1); Sodium 137 mmol/L (135-145)
[2023-01-10 06:36] LABS: Glucose Random 43 mg/dL (60-115)
[2023-01-10] MEDS: Dextrose 10 % 250 ML 750 ML IV (06:44)
[2023-01-10 07:19] LABS: Glucose, Whole Blood 259 mg/dL (60-115)
[2023-01-10 08:00] VITALS: BP 102/68; PULSE 84; RESP 18; TEMP 36.6; O2SAT 100
[2023-01-10] MEDS: Insulin Lispro 100 UNIT/ML 3 ML VIAL SUBCUT (08:05)
[2023-01-10] MEDS: QUEtiapine Fumarate 200 MG TABLET PO (08:39)
[2023-01-10] MEDS: Escitalopram Oxalate 20 MG TABLET PO (08:39)
[2023-01-10] MEDS: PHENobarbitaL 15 MG TABLET 45 MG PO (08:39)
[2023-01-10] MEDS: cloNIDine HCL 0.2 MG TABLET PO (08:39)
[2023-01-10] MEDS: lamoTRIgine 100 MG TABLET 200 MG PO (08:39)
[2023-01-10] MEDS: Magnesium Oxide 400 MG TABLET PO (08:39)
[2023-01-10] MEDS: Folic Acid 1 MG TABLET PO (08:39)
[2023-01-10] MEDS: Thiamine HCL 100 MG TABLET PO (08:39)
[2023-01-10] MEDS: Insulin Glargine,Hum.rec.anlog 100 UNIT/ML 10 ML VIAL 30 UNIT SUBCUT (08:40)
[2023-01-10] MEDS: Multivitamin TABLET 1 TAB PO (08:40)
--- NOTE | 2023-01-10 10:44 | MHC.RECOVRN ---
Met with pt to follow up regarding dc plans and recovery support options. Pt sitting on edge of bed, awake, alert, easily engages in conversation, brighter affect than yesterday. Pt reports he is unable to go to [facility] if that is recommendation, reports he has a dog at home that he is paying a fundraising specialist for and can not afford it for that length of time. Pt is interested in IOP. T/w left message with PHP/IOP clinical secretary requesting call to pt due to pt having left messages and not hearing back. Pt does not have concerns regarding phsyically attending IOP, reports he will be able to do so. Pt denies other questions or concerns at this time.
[2023-01-10 11:13] LABS: Glucose, Whole Blood 88 mg/dL (60-115)
--- NOTE | 2023-01-10 13:56 | HO.PM.IMPN ---
Subjective Subjective Date of Service: 01/10/23 Interval History: Notes improvement since admission. Still feels ?weak? Review of Systems Denies chest pain Denies shortness of breath Denies nausea vomiting diarrhea Denies fever chills Physical Exam Vital Signs: Vital Signs: Last Vital Signs Temp 97.9 F 01/10/23 08:00 Pulse 84 01/10/23 08:00 Resp 18 01/10/23 08:00 BP 102/68 01/10/23 08:00 Pulse Ox 100 01/10/23 08:00 O2 Del Method Room Air 01/10/23 08:00 BMI result Body Mass Index 23.6 Const: Other: Awake alert no acute distress Resp: Other: Clear to auscultation bilaterally no rales rhonchi or wheezes Cardio: Other: No S4; positive S1-S2; no S3 murmurs rubs or gallops GI: Other: Soft nontender nondistended normoactive bowel sounds Neuro: Other: Cranial nerves 2-12 grossly intact as tested. Motor is 5/5 all extremities. Sensation intact. Cognition appropriate Extrem: Other: No edema bilaterally Objective Data Active Medications Acetaminophen (Acetaminophen 325 Mg Tablet) 650 mg PO Q6H PRN PRN Reason: Pain, Mild (Pain Scale 1-3) Last Admin: 01/09/23 07:46 Dose: 650 mg Documented By: PRADEEP Clonidine HCl (Clonidine Hcl 0.2 Mg Tablet) 0.2 mg PO BID [facility]; Protocol Last Admin: 01/10/23 08:39 Dose: 0.2 mg Documented By: NIKIA Docusate Sodium (Docusate Sodium 100 Mg Capsule) 100 mg PO DAILY PRN PRN Reason: Constipation Enoxaparin Sodium (Enoxaparin Sodium 40 Mg/0.4 Ml Syringe) 40 mg SUBCUT Q24H [facility] Last Admin: 01/10/23 00:18 Dose: 40 mg Documented By: KENISHA Escitalopram Oxalate (Escitalopram Oxalate 20 Mg Tablet) 20 mg PO DAILY [facility] Last Admin: 01/10/23 08:39 Dose: 20 mg Documented By: NIKIA Folic Acid (Folic Acid 1 Mg Tablet) 1 mg PO DAILY [facility] Last Admin: 01/10/23 08:39 Dose: 1 mg Documented By: NIKIA Glucose (Glucose Gel 15 Gm Gel..Gram.) 15 gm PO Q15M PRN; Protocol PRN Reason: per Hypoglycemia Standing Ord. Hydroxyzine HCl (Hydroxyzine Hcl 25 Mg Tablet) 25 mg PO BID PRN PRN Reason: anxiety Dextrose (D10) 250 mls @ 750 mls/hr IV Q15M PRN; Protocol PRN Reason: per Hypoglycemia Standing Ord. Last Infusion: 01/10/23 07:26 Dose: 0 mls/hr Documented By: NIKIA Insulin Glargine (Insulin Glargine,Hum.Rec.Anlog 100 Unit/Ml 10 Ml Vial) 30 unit SUBCUT DAILY [facility] Last Admin: 01/10/23 08:40 Dose: 30 unit Documented By: NIKIA Insulin Human Lispro (Insulin Lispro 100 Unit/Ml 3 Ml Vial) 0 unit SUBCUT QIDACHS [facility]; Protocol Last Admin: 01/10/23 11:05 Dose: Not Given Documented By: NIKIA Non-Admin Reason: No Insulin Coverage Lamotrigine (Lamotrigine 100 Mg Tablet) 200 mg PO BID [facility] Last Admin: 01/10/23 08:39 Dose: 200 mg Documented By: NIKIA Magnesium Oxide (Magnesium Oxide 400 Mg Tablet) 400 mg PO BID [facility] Last Admin: 01/10/23 08:39 Dose: 400 mg Documented By: NIKIA Multivitamins/Vitamin C (Multivitamin Tablet) 1 tab PO DAILY [facility] Last Admin: 01/10/23 08:40 Dose: 1 tab Documented By: NIKIA Ondansetron HCl (Ondansetron Hcl 4 Mg/2 Ml Vial) 4 mg IVPUSH Q8H PRN PRN Reason: Nausea and Vomiting Pharmacy Consult (Consult Rx Etoh Phenob Im/Po) 1 each MISCELLANE ONCE PRN; Protocol PRN Reason: Consult order Pharmacy Consult (Consult Rx Perform Med Rec) 1 each MISCELLANE ONCE PRN PRN Reason: Consult order Phenobarbital (Phenobarbital 15 Mg Tablet) 45 mg PO BID [facility]; Protocol Stop: 01/10/23 21:01 Last Admin: 01/10/23 08:39 Dose: 45 mg Documented By: NIKIA Phenobarbital (Phenobarbital 15 Mg Tablet) 15 mg PO BID [facility]; Protocol Stop: 01/12/23 21:01 Phenobarbital (Phenobarbital 15 Mg Tablet) 15 mg PO DAILY [facility]; Protocol Stop: 01/14/23 09:01 Quetiapine Fumarate (Quetiapine Fumarate 200 Mg Tablet) 200 mg PO BID [facility] Last Admin: 01/10/23 08:39 Dose: 200 mg Documented By: NIKIA Quetiapine Fumarate (Quetiapine Fumarate 400 Mg Tablet) 400 mg PO BEDTIME [facility] Last Admin: 01/09/23 21:25 Dose: 400 mg Documented By: KENISHA Sodium Chloride (0.9 % Sodium Chloride Flush 3 Ml Syringe) [facility] Admin: 01/10/23 07:27 Dose: Not Given Documented By: NIKIA Non-Admin Reason: IV Running Sodium Chloride (0.9 % Sodium Chloride Flush 3 Ml Syringe) 3 ml IVFLUSH QSVAFT [facility] Last Admin: 01/10/23 07:27 Dose: Not Given Documented By: NIKIA Non-Admin Reason: Duplicate Order Thiamine HCl (Thiamine Hcl 100 Mg Tablet) 100 mg PO DAILY [facility] Last Admin: 01/10/23 08:39 Dose: 100 mg Documented By: NIKIA Trazodone HCl (Trazodone Hcl 100 Mg Tablet) 200 mg PO BEDTIME PRN PRN Reason: Sleep Last Admin: 01/09/23 21:24 Dose: 200 mg Documented By: KENISHA Zolpidem Tartrate (Zolpidem Tartrate 5 Mg Tablet) 5 mg PO BEDTIME [facility] Last Admin: 01/09/23 21:24 Dose: 5 mg Documented By: KENISHA Labs 01/09/23 08:04 01/10/23 05:57 Labs: Laboratory Results - last 24 hr 01/09/23 01/09/23 01/10/23 16:13 20:04 05:57 Anion Gap 10 L Estim Creat Clear Calc 137.0 Estimated GFR > 60 POC Glucose 116 H 139 H Random Glucose 43 L* Calcium 8.0 L Magnesium 1.6 01/10/23 01/10/23 01/10/23 05:57 07:15 11:04 Anion Gap Estim Creat Clear Calc Estimated GFR POC Glucose 259 H 88 Random Glucose Calcium Magnesium Cancelled Assessment and Plan (1) Alcohol withdrawal syndrome: Status: Acute (2) Diabetes type 2, controlled: Status: Acute Plan 32-year-old male with past medical history of alcohol abuse with frequent admissions for the same presents the hospital with complaints of alcohol withdrawals and falls 1.Acute alcohol withdrawal -CIWA 0 this a.m. -observe overnight; if CIWA remains 0 discharge in a.m. 2.Elevated LFTs/abdominal pain -recheck LFTs in a.m. to document resolution of elevation -abdominal pain resolved likely secondary to alcohol abuse 3.Syncope -asymptomatic during this hospitalization 4.Diabetes II -acceptable control on current therapies -continue lispro correctional scale -adjust as indicated Lovenox Full Code Requires ongoing hospitalization to document alcohol withdrawal is resolved secondary phenobarb protocol Time Spent With Patient Time: Total time managing care of this patient today ____ minutes. Quality Stroke Does the patient have a stroke diagnosis?: No VTE Prior VTE?: No VTE Risk Level:: Medical - moderate - high VTE Device Contraindication: Treatment Not Indicated VTE Drug Contraindication: N/A - Med Ordered
--- NOTE | 2023-01-10 14:15 | PM.DS ---
DS: Providers Provider Date of Service: 01/10/23 Date of admission: 01/08/23 11:26 Date of discharge: 01/10/23 Primary care physician: Beena Melo MD Consults: 01/09/23 07:27 Addiction Medicine Routine Consulting Provider: Addiction Covering Reason for consultation: ETOH DS: Diagnosis Discharge Diagnosis (1) Alcohol withdrawal syndrome: Status: Acute (2) Diabetes type 2, controlled: Status: Acute DS: Summary Hospital Course Hospital Course: 42-year-old with frequent admissions for alcohol abuse withdrawals and falls comes into the hospital with similar presentation.? Patient has a past medical history of alcohol abuse with history of withdrawals, bipolar disorder, diabetes and has had multiple admissions in the past for similar fib symptoms.? Patient reports that he stopped drinking alcohol about 6 days ago with intention of self detoxing, he then became progressively weaker, and has had multiple falls with syncopal episodes at home therefore he decided to come to the hospital.? He still feels that he is withdrawing, he is anxious jittery, denies any hallucinations at this time. He denies any chest pain, no headache or change in vision, reports no trauma, reports diffuse abdominal pain, and some nausea with no vomiting., no diarrhea constipation, no urinary symptoms and no lower extremity edema Pt has a CIWA of 21 on arrival. Hospital Course Admitted and kept on CIWA scale phenobarb protocol. Over the course of the next 48 hours CIWA is 0 and patient is requesting to be discharged with family. This point time I believe he is medically acceptable for same. Physical therapy recommends home with walker in services Time Spent with Patient Time attestation: Total time managing care of this patient today ____ minutes. Discharge coordination time: Greater than 30 minutes Quality: Safe Use of Opioids Does Pt have an Active Cancer Diagnosis on the Problem List?: No Quality: Stroke Does the patient have a stroke diagnosis?: No Physical Exam Vital Signs: Vital Signs: Last Vital Signs Temp 97.9 F 01/10/23 08:00 Pulse 84 01/10/23 08:00 Resp 18 01/10/23 08:00 BP 102/68 01/10/23 08:00 Pulse Ox 100 01/10/23 08:00 O2 Del Method Room Air 01/10/23 08:00 BMI result Body Mass Index 23.6 Const: Other: Awake alert no acute distress Resp: Other: Clear to auscultation bilaterally no rales rhonchi or wheezes Cardio: Other: No S4; positive S1-S2; no S3 murmurs rubs or gallops GI: Other: Soft nontender nondistended normoactive bowel sounds Neuro: Other: Cranial nerves 2-12 grossly intact as tested. Motor is 5/5 all extremities. Sensation intact. Cognition appropriate Extrem: Other: No edema bilaterally DS: Data Data Completed and Pending Completed studies during hospitalization [Text1]: Procedures Detoxification Services for Substance Abuse Treatment (09/26/22) Insertion of Endotracheal Airway into Trachea, Via Natural or Artificial Opening (01/27/22) Insertion of Infusion Device into Superior Vena Cava, Percutaneous Approach (05/21/22) Repair Scalp Skin, External Approach (09/26/22) Respiratory Ventilation, Less than 24 Consecutive Hours (01/27/22) Ultrasonography of Superior Vena Cava, Guidance (05/21/22) Labs on day of discharge: Laboratory Results - last 24 hr 01/09/23 01/09/23 01/10/23 16:13 20:04 05:57 Sodium 137 Potassium 3.4 Chloride 108 Carbon Dioxide 22 Anion Gap 10 L BUN 8 L Creatinine 0.65 Estim Creat Clear Calc 137.0 Estimated GFR > 60 POC Glucose 116 H 139 H Random Glucose 43 L* Calcium 8.0 L Magnesium 1.6 01/10/23 01/10/23 01/10/23 05:57 07:15 11:04 Sodium Potassium Chloride Carbon Dioxide Anion Gap BUN Creatinine Estim Creat Clear Calc Estimated GFR POC Glucose 259 H 88 Random Glucose Calcium Magnesium Cancelled Discharge Plan Discharge Anticipated Discharge Date/Time: 01/10/23 14:11 Patient Disposition: Home Health Service Discharge Diagnosis: Acute alcohol withdrawal Referrals: Beena Melo MD [Primary Care Provider] - 1 Week Discharge Medications: Continued (DME) lancets [TRUEplus Lancets] 33 gauge misc See Rx Instructions .Route Qty: 200 11RF Rx Instructions: Four times a day (DME) pen needle, diabetic [BD July 2nd Gen Pen Needle] 32 gauge x 5/32 needle See Rx Instructions .MEDSUPPLY Qty: 150 4RF Rx Instructions: 5 times a day (DME) FreeStyle Lite Strips Strip See Rx Instructions .Route Qty: 150 11RF Rx Instructions: Four times a day quetiapine 400 mg tablet 1 tab PO BEDTIME insulin aspart U-100 [Novolog FlexPen U-100 Insulin] 100 unit/mL (3 mL) insulin pen 0 sliding scale dose subcut QIDACHS Protocol: Insulin Correction Scale Less than or equal to 110 ---- Give (units): 0 111 to 150 Give (units): 0 151 to 200 Give (units): 2 201 to 250 Give (units): 4 251 to 300 Give (units): 6 301 to 350 Give (units): 8 Greater than 350 Give (units): 10 Call MD if Blood Glucose > : 350 hydroxyzine pamoate 25 mg capsule 1 cap PO BID PRN (Reason: anxiety) insulin glargine [Lantus Solostar U-100 Insulin] 100 unit/mL (3 mL) insulin pen 30 unit subcut DAILY Qty: 15 0RF quetiapine 400 mg Tablet Extended Release 24 Hr 400 mg PO DAILY@0900 multivitamin [Daily Multi-Vitamin] Tablet 1 tab PO DAILY lamotrigine 200 mg tablet 200 mg PO BID zolpidem 5 mg tablet 1 tab PO BEDTIME trazodone 100 mg tablet 200 mg PO BEDTIME PRN (Reason: Sleep) clonidine HCl 0.2 mg tablet 0.2 mg PO BID citalopram 40 mg tablet 40 mg PO DAILY thiamine HCl (vitamin B1) 100 mg tablet 100 mg PO DAILY folic acid 1 mg tablet 1 mg PO DAILY magnesium oxide 400 mg (241.3 mg magnesium) tablet 400 mg PO BID Discharge Orders: Discharge Order (Routine); Ordered 01/10/23 Ordered By: Samson Guallpa Diet: Advance to usual diet Activity on Discharge: As tolerated Stand Alone Forms: Patient Portal Discharge page Care Plan Goals: Avoid alcohol Health Concerns: Resume all previous therapies prior to hospital Plan of Treatment: Utilize walker in physical therapy at home Assessment: See discharge summary
--- NOTE | 2023-01-10 15:06 | MHC.CM.PN ---
Addendum entered by Hortencia Last 01/10/23 15:55: [facility] will provide services pending face 2 face. Original Note: Patient discharged today. He has been ordered homecare. [facility] was called for approval. T/W was instructed to referrer cyrus VELE[facility]. Patient preferences obtained and referrals have been sent. patients uncle will provide transportation home.
== END 2023-01-10 15:42 | disposition home health service (06) | DRG 897 ==
LOC: HO.ED 01-08 00:27 → HO.EDOVER 01-08 02:04 → HO.S3 01-08 09:06
PROVIDERS: Emergency Medicine; Nurse Practitioner Acute Care; Admitting Provider Internal Medicine; Emergency Provider Emergency Medicine; PCP Internal Medicine; Visit Provider Hospitalist
DX: F10.139 Alcohol abuse with withdrawal, unspecified (principal); F31.9 Bipolar disorder, unspecified; E10.9 Type 1 diabetes mellitus without complications; Z88.0 Allergy status to penicillin; Z79.899 Other long term (current) drug therapy
CPT/HCPCS: 36415; 70450; 72125; 74176; 80048; 80076; 80307; 82947; 83690; 83735; 85025; 85027; 85610; 93005; 97116; 97162; 99285; J1650; J2560; P9047

== ENCOUNTER 2023-03-22 19:24 | Inpatient (IN) | payer OTHER, SELFPAY ==
--- NOTE | ~2023-03-22 | CT_ITS ---
EXAMINATION: CT HEAD WITHOUT CONTRAST CLINICAL INFORMATION: Alcoholic falls COMPARISON: CT head from 01/08/2023 TECHNIQUE: Contiguous axial imaging was performed from the skull base to vertex without intravenous administration of contrast. This CT examination was performed using dose optimization techniques as appropriate, variously including the following: *Automated exposure control *Adjustment of mA and/or kV according to patient size (this includes techniques or standardized protocols for targeted exams where dose is matched to indication/reason for exam; i.e. extremities or head) *Use of iterative reconstruction technique DLP: 647 mGy-cm FINDINGS: There is no evidence of acute intracranial hemorrhage or territorial infarction. No abnormal mass effect or midline shift is seen. Person to white matter differentiation is well preserved. No extra-axial fluid collections are identified. The ventricles are normal in size. There is no abnormal attenuation within the brain parenchyma. The osseous structures and soft tissues are normal. The mastoid air cells and visualized portions of the paranasal sinuses are well aerated. CT/CT head/brain wo IV con IMPRESSION: No acute intracranial pathology.
[2023-03-22 19:34] VITALS: BP 117/85; BP 122/76; PULSE 71; PULSE 80; RESP 18; TEMP 36.9; O2SAT 100; O2SAT 98; BMI 17.5
[2023-03-22 19:40] LABS: Glucose, Whole Blood 424 mg/dL (60-115)
--- NOTE | 2023-03-22 19:45 | ECG_ITS ---
Test Reason : HYPERGLYCEMIA Blood Pressure : / mmHG Vent. Rate : 071 BPM Atrial Rate : 071 BPM P-R Int : 146 ms QRS Dur : 090 ms QT Int : 404 ms P-R-T Axes : 066 058 066 degrees QTc Int : 439 ms Normal sinus rhythm Normal ECG When compared with ECG of 07-JAN-2023 20:53, No significant change was found Referred By: Generic ED Physician Electronically Signed By:XUAN PACK
--- NOTE | 2023-03-22 20:20 | PC.NURSE ---
POC 424, Dr. Stark made aware, no new orders at this time.
[2023-03-22 20:30] LABS: Troponin-I High Sensitivity < 2.7 ng/L (<3.5-35.0)
[2023-03-22 20:47] LABS: Hematocrit 34.7 % (42.0-52.0); Hemoglobin 12.5 g/dl (14.0-18.0); Mean Corpuscular Hemoglobin 32.8 pg (27.0-33.0); Mean Corpuscular Volume 91.1 fL (80.0-98.0); Mean Platelet Volume 9.9 fL (9.4-12.4); Platelet Count 141 X10*3/uL (160-400); Red Blood Count 3.81 X10*6/uL (4.60-5.80); Red Cell Distribution Width 11.9 % (11.0-16.0); White Blood Count 5.3 X10*3/uL (4.8-10.8)
[2023-03-22 21:04] LABS: Appearance Urine Clear; Color Urine Yellow; Glucose Urine UA >=1000 mg/dL (Negative); Leukocyte Esterase Urine Negative (Negative); Nitrite Urine Negative (Negative); UMIC TRIGGER UACC YES; Urine Blood Negative (Negative); Urine Ketones Negative (Negative); Urine Protein Negative (Neg-Trace)
[2023-03-22 21:10] LABS: Bacteria Urine None Seen (None Seen); Hyaline Casts Urine 0-2 /LPF (0-2); RBC Urine 0-2 /HPF (0-2); Squamous Epithelial Cell Urine 0-2 /HPF (0-2); WBC Urine 0-5 /HPF (0-5)
[2023-03-22 21:13] LABS: Alanine Aminotransferase 33 U/L (0-40); Albumin Level 3.2 g/dL (3.5-5.0); Alkaline Phosphatase 341 U/L (39-117); Anion Gap 21 (12-20); Aspartate Amino Transferase 61 U/L (5-37); Bilirubin Total 1.1 mg/dL (0.0-1.0); Blood Urea Nitrogen < 3 mg/dL (9-16); Calcium 8.1 mg/dL (8.4-10.2); Carbon Dioxide 23 mmol/L (22-29); Chloride 97 mmol/L (96-108); Creatinine Clr Calc Pharmacy 96.8; Estimated Glomerular Filt Rate > 60; Ethanol 421 mg/dL; Glucose Random 412 mg/dL (60-115); Potassium 3.3 mmol/L (3.3-5.1); Sodium 138 mmol/L (135-145); Total Protein 6.3 g/dL (6.5-8.0)
[2023-03-22 21:15] LABS: Amphetamine Screen Urine Not Detected (Not Detect); Barbiturates, Urine Not Detected (Not Detect); Benzodiazepines Screen Urine Not Detected (Not Detect); Cannabinoid Screen Urine Not Detected (Not Detect); Cocaine Screen Urine Not Detected (Not Detect); Fentanyl, urine Not Detected (Not Detect); Opiate Screen Urine Not Detected (Not Detect); Phencyclidine Screen Urine Not Detected (Not Detect)
--- NOTE | 2023-03-22 21:25 | ED.ALCOHOL ---
HPI - Alcohol General Chief Complaint: ETOH/Substance Use Stated Complaint: POSSIBLE DKA ETOH Time Seen by Provider: 03/22/23 21:18 Source: patient Mode of arrival: EMS Limitations: no limitations History of Present Illness HPI narrative: Patient 42 years old alcoholic with history of depression and anxiety and type 1 diabetes noncompliant to his insulin been drinking heavy for last 2 years before that he was sober for 2 years after he went to detox patient drinks mostly Rum lasting was earlier prior to arrival patient has not taken his insulin today on arrival patient POC was 478 patient feels depression is the main reason that he drinks mother was concerned came to the ER to go to detox patient was getting nauseous tremulous and sweaty prior to arrival patient does have history of withdrawal seizures and DTs denies any hallucination or seizures on arrival patient denies any vomiting or abdominal pain. Patient also said that he fell several times last few days no significant head injury Related Data Home Medications Medication Instructions Recorded Confirmed clonidine HCl 0.2 mg tablet 0.2 mg PO BID 11/11/20 01/08/23 lamotrigine 200 mg tablet 200 mg PO BID 01/28/22 01/08/23 citalopram 40 mg tablet 40 mg PO DAILY 02/08/22 01/08/23 folic acid 1 mg tablet 1 mg PO DAILY 02/08/22 03/23/23 magnesium oxide 400 mg (241.3 mg 400 mg PO BID 02/08/22 01/08/23 magnesium) tablet thiamine HCl (vitamin B1) 100 mg 100 mg PO DAILY 02/08/22 03/23/23 tablet zolpidem 5 mg tablet 1 tab PO BEDTIME 03/14/22 01/08/23 insulin aspart U-100 100 unit/mL 0 sliding scale dose subcut QIDACHS 06/12/22 01/08/23 (3 mL) subcutaneous pen (Novolog FlexPen U-100 Insulin aspart) quetiapine 400 mg tablet 1 tab PO BEDTIME 06/12/22 01/08/23 hydroxyzine pamoate 25 mg capsule 1 cap PO BID PRN anxiety 09/04/22 01/08/23 multivitamin (Daily Multi-Vitamin 1 tab PO DAILY 09/26/22 01/08/23 tablet) quetiapine 400 mg tablet,extended 400 mg PO DAILY@0900 09/26/22 01/08/23 release 24 hr trazodone 100 mg tablet 200 mg PO BEDTIME PRN Sleep 01/08/23 01/08/23 Previous Rx's Medication Instructions Recorded lancets 33 gauge (TRUEplus Lancets) #200 ea 03/08/21 pen needle, diabetic 32 gauge x #150 ea 02/07/22 (BD July 2nd Gen Pen Needle) blood sugar diagnostic (FreeStyle #150 ea 03/20/22 Lite Strips) insulin glargine 100 unit/mL (3 30 unit (0.3 mL) subcut DAILY #15 09/06/22 mL) subcutaneous pen (Lantus mL Solostar U-100 Insulin) Allergies Allergy/AdvReac Type Severity Reaction Status Date / Time meropenem [MEROPENEM] Allergy Unknown SWELLING Verified 09/25/22 22:45 penicillin G procaine Allergy Unknown itching Verified 09/25/22 22:45 Penicillins [PENICILLINS] Allergy Unknown SWELLING Verified 09/25/22 22:45 Review of Systems Review of Systems: Yes all other systems are reviewed and are negative PMFSH Past Medical History Medical History Alcohol use disorder Bacteremia Bipolar disorder 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 Mother Diabetes Social History Social History Household Members: None Household Members Other:: with dog Housing: Apartment Do you presently have visiting nurse or other home services: No Alcohol intake: current Alcohol intake frequency: 3 or more drinks per day Alcohol type: hard liquor Patient Tobacco Use Status: Never used Tobacco Smoked in Last 30 Days: No e-Cigarette/Vaping Use: Never Used Second Hand Smoke Exposure: No Use of substances other than those prescribed or required for medical reasons: No Advance Directives: Yes Advance Directives on File: Yes Advance Directives Date on File: 02/07/22 Nutrition Risks: Poor intake 0-25% >4 days service: No Current occupational status: unemployed Physical Exam ED Vital Signs: Vital Signs - 24 hr 03/22/23 19:34 03/22/23 21:40 03/22/23 23:27 Temperature 98.5 F 97.9 F 98.2 F Pulse Rate 71 77 69 Respiratory Rate 18 18 16 Blood Pressure 117/85 116/88 111/81 Pulse Oximetry 100 99 98 Oxygen Delivery Method Room Air Room Air Room Air BMI result Body Mass Index 17.5 Appearance: Alert. Oriented X3. No acute distress. ETOH++ Eyes: PERRLA, No Nystagmus ENT: Pharynx normal. Oral Mucosa moist, AT NC Neck: Normal inspection. Neck supple. CVS: Normal heart rate and rhythm. Pulses normal. Respiratory: No respiratory distress. Equal air entry bilateral, no wheezing/rales/rhonchi Abdomen: Soft and nontender. Bowel sounds are present, no mass palpable, no CVA tenderness Skin: Skin warm and dry. Normal skin color. Normal skin turgor. Extremities: No lower extremity edema. No calf tenderness Neuro: Oriented X 3. No motor deficit. No sensory deficit.No cerebellar signs , cranial nerves II-XII intact Medical Decision Making Medical Decision Making MDM Narrative: Patient diabetic hyperglycemia with depression significant alcohol use with history of DTs and seizures will admit patient for IV hydration started on phenobarb protocol because of high risk for patient to go into DTs Admission/Observation Consideration of admission/observation: Escalation of care including admission/observation considered Consult Healthcare Provider Management of the patient was discussed with: Hospitalist Lab Data [facility] Lab Attestation statement: I reviewed the patient's lab results. 03/22/23 20:40 03/22/23 20:40 Labs: Lab Results 03/22/23 03/22/23 03/22/23 Range/Units 19:36 19:59 20:40 WBC 5.3 (4.8-10.8) X10*3/uL RBC 3.81 L D (4.60-5.80) X10*6/uL Hgb 12.5 L D (14.0-18.0) g/dl Hct 34.7 L D (42.0-52.0) % MCV 91.1 (80.0-98.0) fL MCH 32.8 (27.0-33.0) pg MCHC 36.0 (31.0-36.0) g/dl RDW 11.9 (11.0-16.0) % Plt Count 141 L (160-400) X10*3/uL MPV 9.9 (9.4-12.4) fL Absolute Nucleated RBC 0.000 (0.0-0.012) X10*3/uL Nucleated RBC % (auto) 0.0 (0.0-0.2) /100WBC VBG pH (7.32-7.43) VBG pCO2 mmHg VBG pO2 mmHg VBG HCO3 (22-26) mmol/L VBG O2 Saturation % VBG Base Excess mmol/L Sodium (135-145) mmol/L Potassium (3.3-5.1) mmol/L Chloride (96-108) mmol/L Carbon Dioxide (22-29) mmol/L Anion Gap (12-20) BUN (9-16) mg/dL Creatinine (0.5-1.4) mg/dL Estim Creat Clear Calc Estimated GFR POC Glucose 424 H* (60-115) mg/dL Random Glucose (60-115) mg/dL Calcium (8.4-10.2) mg/dL Total Bilirubin (0.0-1.0) mg/dL AST (5-37) U/L ALT (0-40) U/L Alkaline Phosphatase (39-117) U/L Troponin I High Sens < 2.7 (<3.5-35.0) ng/L Total Protein (6.5-8.0) g/dL Albumin (3.5-5.0) g/dL Beta-Hydroxybutyrate (0.02-0.27) mmol/L Urine Color Urine Appearance Urine pH (5.0-9.0) Ur Specific [place] (1.005-1.025) Urine Protein (Neg-Trace) mg/dL Urine Glucose (UA) (Negative) mg/dL Urine Ketones (Negative) mg/dL Urine Blood (Negative) Urine Nitrite (Negative) Ur Leukocyte Esterase (Negative) Urine RBC (0-2) /HPF Urine WBC (0-5) /HPF Ur Squamous Epith Cells (0-2) /HPF Urine Bacteria (None Seen) Hyaline Casts (0-2) /LPF Urine Opiates Screen (Not Detect) Urine Fentanyl Screen (Not Detect) Ur Barbiturates Screen (Not Detect) Ur Phencyclidine Scrn (Not Detect) Ur Amphetamines Screen (Not Detect) U Benzodiazepines Scrn (Not Detect) Urine Cocaine Screen (Not Detect) U Marijuana (THC) Screen (Not Detect) Ethyl Alcohol mg/dL 03/22/23 03/22/23 03/22/23 Range/Units 20:40 20:43 20:43 WBC (4.8-10.8) X10*3/uL RBC (4.60-5.80) X10*6/uL Hgb (14.0-18.0) g/dl Hct (42.0-52.0) % MCV (80.0-98.0) fL MCH (27.0-33.0) pg MCHC (31.0-36.0) g/dl RDW (11.0-16.0) % Plt Count (160-400) X10*3/uL MPV (9.4-12.4) fL Absolute Nucleated RBC (0.0-0.012) X10*3/uL Nucleated RBC % (auto) (0.0-0.2) /100WBC VBG pH (7.32-7.43) VBG pCO2 mmHg VBG pO2 mmHg VBG HCO3 (22-26) mmol/L VBG O2 Saturation % VBG Base Excess mmol/L Sodium 138 (135-145) mmol/L Potassium 3.3 (3.3-5.1) mmol/L Chloride 97 (96-108) mmol/L Carbon Dioxide 23 (22-29) mmol/L Anion Gap 21 H (12-20) BUN < 3 L (9-16) mg/dL Creatinine 0.75 (0.5-1.4) mg/dL Estim Creat Clear Calc 96.8 Estimated GFR > 60 POC Glucose (60-115) mg/dL Random Glucose 412 H* (60-115) mg/dL Calcium 8.1 L (8.4-10.2) mg/dL Total Bilirubin 1.1 H (0.0-1.0) mg/dL AST 61 H (5-37) U/L ALT 33 (0-40) U/L Alkaline Phosphatase 341 H (39-117) U/L Troponin I High Sens (<3.5-35.0) ng/L Total Protein 6.3 L (6.5-8.0) g/dL Albumin 3.2 L (3.5-5.0) g/dL Beta-Hydroxybutyrate (0.02-0.27) mmol/L Urine Color Yellow Urine Appearance Clear Urine pH 7.0 (5.0-9.0) Ur Specific [place] 1.020 (1.005-1.025) Urine Protein Negative (Neg-Trace) mg/dL Urine Glucose (UA) >=1000 H (Negative) mg/dL Urine Ketones Negative (Negative) mg/dL Urine Blood Negative (Negative) Urine Nitrite Negative (Negative) Ur Leukocyte Esterase Negative (Negative) Urine RBC 0-2 (0-2) /HPF Urine WBC 0-5 (0-5) /HPF Ur Squamous Epith Cells 0-2 (0-2) /HPF Urine Bacteria None Seen (None Seen) Hyaline Casts 0-2 (0-2) /LPF Urine Opiates Screen Not Detected (Not Detect) Urine Fentanyl Screen Not Detected (Not Detect) Ur Barbiturates Screen Not Detected (Not Detect) Ur Phencyclidine Scrn Not Detected (Not Detect) Ur Amphetamines Screen Not Detected (Not Detect) U Benzodiazepines Scrn Not Detected (Not Detect) Urine Cocaine Screen Not Detected (Not Detect) U Marijuana (THC) Screen Not Detected (Not Detect) Ethyl Alcohol 421 H* mg/dL 03/22/23 03/22/23 03/22/23 Range/Units 22:00 22:59 23:06 WBC (4.8-10.8) X10*3/uL RBC (4.60-5.80) X10*6/uL Hgb (14.0-18.0) g/dl Hct (42.0-52.0) % MCV (80.0-98.0) fL MCH (27.0-33.0) pg MCHC (31.0-36.0) g/dl RDW (11.0-16.0) % Plt Count (160-400) X10*3/uL MPV (9.4-12.4) fL Absolute Nucleated RBC (0.0-0.012) X10*3/uL Nucleated RBC % (auto) (0.0-0.2) /100WBC VBG pH (7.32-7.43) VBG pCO2 mmHg VBG pO2 mmHg VBG HCO3 (22-26) mmol/L VBG O2 Saturation % VBG Base Excess mmol/L Sodium (135-145) mmol/L Potassium (3.3-5.1) mmol/L Chloride (96-108) mmol/L Carbon Dioxide (22-29) mmol/L Anion Gap (12-20) BUN (9-16) mg/dL Creatinine (0.5-1.4) mg/dL Estim Creat Clear Calc Estimated GFR POC Glucose 348 H 309 H (60-115) mg/dL Random Glucose (60-115) mg/dL Calcium (8.4-10.2) mg/dL Total Bilirubin (0.0-1.0) mg/dL AST (5-37) U/L ALT (0-40) U/L Alkaline Phosphatase (39-117) U/L Troponin I High Sens (<3.5-35.0) ng/L Total Protein (6.5-8.0) g/dL Albumin (3.5-5.0) g/dL Beta-Hydroxybutyrate 0.46 H (0.02-0.27) mmol/L Urine Color Urine Appearance Urine pH (5.0-9.0) Ur Specific [place] (1.005-1.025) Urine Protein (Neg-Trace) mg/dL Urine Glucose (UA) (Negative) mg/dL Urine Ketones (Negative) mg/dL Urine Blood (Negative) Urine Nitrite (Negative) Ur Leukocyte Esterase (Negative) Urine RBC (0-2) /HPF Urine WBC (0-5) /HPF Ur Squamous Epith Cells (0-2) /HPF Urine Bacteria (None Seen) Hyaline Casts (0-2) /LPF Urine Opiates Screen (Not Detect) Urine Fentanyl Screen (Not Detect) Ur Barbiturates Screen (Not Detect) Ur Phencyclidine Scrn (Not Detect) Ur Amphetamines Screen (Not Detect) U Benzodiazepines Scrn (Not Detect) Urine Cocaine Screen (Not Detect) U Marijuana (THC) Screen (Not Detect) Ethyl Alcohol mg/dL 03/22/23 03/23/23 Range/Units 23:07 01:12 WBC (4.8-10.8) X10*3/uL RBC (4.60-5.80) X10*6/uL Hgb (14.0-18.0) g/dl Hct (42.0-52.0) % MCV (80.0-98.0) fL MCH (27.0-33.0) pg MCHC (31.0-36.0) g/dl RDW (11.0-16.0) % Plt Count (160-400) X10*3/uL MPV (9.4-12.4) fL Absolute Nucleated RBC (0.0-0.012) X10*3/uL Nucleated RBC % (auto) (0.0-0.2) /100WBC VBG pH 7.55 H (7.32-7.43) VBG pCO2 31 mmHg VBG pO2 77 mmHg VBG HCO3 27 H (22-26) mmol/L VBG O2 Saturation 95.0 % VBG Base Excess 5.8 mmol/L Sodium (135-145) mmol/L Potassium (3.3-5.1) mmol/L Chloride (96-108) mmol/L Carbon Dioxide (22-29) mmol/L Anion Gap (12-20) BUN (9-16) mg/dL Creatinine (0.5-1.4) mg/dL Estim Creat Clear Calc Estimated GFR POC Glucose 199 H (60-115) mg/dL Random Glucose (60-115) mg/dL Calcium (8.4-10.2) mg/dL Total Bilirubin (0.0-1.0) mg/dL AST (5-37) U/L ALT (0-40) U/L Alkaline Phosphatase (39-117) U/L Troponin I High Sens (<3.5-35.0) ng/L Total Protein (6.5-8.0) g/dL Albumin (3.5-5.0) g/dL Beta-Hydroxybutyrate (0.02-0.27) mmol/L Urine Color Urine Appearance Urine pH (5.0-9.0) Ur Specific [place] (1.005-1.025) Urine Protein (Neg-Trace) mg/dL Urine Glucose (UA) (Negative) mg/dL Urine Ketones (Negative) mg/dL Urine Blood (Negative) Urine Nitrite (Negative) Ur Leukocyte Esterase (Negative) Urine RBC (0-2) /HPF Urine WBC (0-5) /HPF Ur Squamous Epith Cells (0-2) /HPF Urine Bacteria (None Seen) Hyaline Casts (0-2) /LPF Urine Opiates Screen (Not Detect) Urine Fentanyl Screen (Not Detect) Ur Barbiturates Screen (Not Detect) Ur Phencyclidine Scrn (Not Detect) Ur Amphetamines Screen (Not Detect) U Benzodiazepines Scrn (Not Detect) Urine Cocaine Screen (Not Detect) U Marijuana (THC) Screen (Not Detect) Ethyl Alcohol mg/dL Medications Administered Generic Name Dose Route Start Last Admin Trade Name Freq PRN Reason Stop Dose Admin Enoxaparin Sodium 40 mg 03/23/23 01:45 03/23/23 02:33 Enoxaparin Sodium 40 Mg/0.4 Ml Syringe SUBCUT 40 mg Q24H MAINOR Administration Phenobarbital Sodium 162 mg 03/23/23 04:00 03/23/23 03:42 Phenobarbital Sodium 130 Mg/Ml Vial Im Q3hx2 IM 03/23/23 07:01 162 mg Q3H MAINOR Administration Discontinued Medications Generic Name Dose Route Start Last Admin Trade Name Freq PRN Reason Stop Dose Admin Sodium Chloride 1,000 mls @ 999 mls/hr 03/22/23 23:01 03/23/23 00:14 Ns IV 03/23/23 00:01 Infused .Q1H1M ONE Infusion Sodium Chloride 1,000 mls @ 999 mls/hr 03/22/23 23:06 03/23/23 00:14 Ns IV 03/23/23 00:06 Infused .Q1H1M ONE Infusion Thiamine HCl 100 mg/ Sodium 101 mls @ 202 mls/hr 03/23/23 01:36 03/23/23 03:12 Chloride IV 03/23/23 02:05 Infused ONCE ONE Infusion Insulin Glargine 30 unit 03/22/23 21:48 03/22/23 22:03 Insulin Glargine,Hum.Rec.Anlog 100 Unit/Ml 10 Ml Vial SUBCUT 03/22/23 21:49 30 unit ONCE ONE Administration Insulin Human Lispro 14 unit 03/22/23 21:48 03/22/23 22:04 Insulin Lispro 100 Unit/Ml 3 Ml Vial SUBCUT 03/22/23 21:49 14 unit ONCE ONE Administration Insulin Human Regular 5 unit 03/23/23 01:35 03/23/23 02:31 Insulin Regular, Human 100 Unit/Ml 3 Ml Vial IVPUSH 03/23/23 01:36 5 unit ONCE ONE Administration Lorazepam 2 mg 03/23/23 00:32 03/23/23 00:44 Lorazepam 2 Mg/Ml Vial IVPUSH 03/23/23 00:33 2 mg ONCE ONE Administration Phenobarbital Sodium 216 mg 03/23/23 01:00 03/23/23 01:37 Phenobarbital Sodium 130 Mg/Ml Im Once IM 03/23/23 01:01 216 mg ONCE ONE Administration Discharge Plan Discharge Clinical Impression: Alcoholic intoxication, Hyperglycemic crisis due to diabetes mellitus, Depression Patient Disposition: Admitted As Inpatient
[2023-03-22 21:40] VITALS: BP 116/88; PULSE 77; RESP 18; TEMP 36.6; O2SAT 99
[2023-03-22] MEDS: Insulin Glargine,Hum.rec.anlog 100 UNIT/ML 10 ML VIAL 30 UNIT SUBCUT (22:03)
[2023-03-22] MEDS: Insulin Lispro 100 UNIT/ML 3 ML VIAL 14 UNIT SUBCUT (22:04)
[2023-03-22 22:10] LABS: Glucose, Whole Blood 348 mg/dL (60-115)
[2023-03-22 23:04] LABS: Glucose, Whole Blood 309 mg/dL (60-115)
[2023-03-22] MEDS: 0.9 % Sodium Chloride 1,000 ML 999 ML IV ×2 (23:13)
[2023-03-22 23:17] LABS: VBG Base Excess 5.8 mmol/L; VBG HCO3 27 mmol/L (22-26); VBG pCO2 31 mmHg; VBG pH 7.55 (7.32-7.43); VBG pO2 77 mmHg
[2023-03-22 23:17] LABS: Venous Blood Gas Refer to POC result
[2023-03-22 23:27] VITALS: BP 111/81; PULSE 69; RESP 16; TEMP 36.8; O2SAT 98
--- NOTE | 2023-03-22 23:27 | MHC.EDTECH ---
THIS PCT ASSUMED CARE OF PATIENT @ 2300 ,VITALS SIGN TAKEN ,PT COMFORTABLE WATCHING TELEVISION IN BED .
[2023-03-23 00:17] LABS: Beta-Hydroxybutyrate 0.46 mmol/L (0.02-0.27)
[2023-03-23] MEDS: LORazepam 2 MG/ML VIAL IVPUSH (00:44)
[2023-03-23 01:19] LABS: Glucose, Whole Blood 199 mg/dL (60-115)
[2023-03-23] MEDS: PHENobarbitaL sodium 130 MG/ML IM ONCE 216 MG IM (01:37)
--- NOTE | 2023-03-23 01:38 | PM.IMHP ---
History of Present Illness Date of Service: 03/23/23 Chief Complaint: Alcohol withdrawal This is a 42-year-old male with pertinent history of alcohol use disorder, mood disorder, type 1 diabetes mellitus who presents to the emergency department for concerns of alcohol withdrawal. Patient states he drinks rum every day and his last drink was on the day of presentation. He was brought by EMS as his mother was concerned by his behavior. Patient states he does have a history of alcohol withdrawal seizures and DTs. Patient states he has been getting nauseous, tremulous and sweaty since his last drink. Denies fever, chills, chest discomfort, palpitations, shortness of breath, abdominal pain, changes in urinary or bowel habits. Patient states he is seeking detox In the emergency department, CIWA was found to be elevated and patient was initiated on phenobarb protocol Review of Systems Constitutional: Constitutional: Reports fatigue, Reports lethargy and Reports malaise Cardiovascular: Cardiovascular: Reports no additional cardiovascular complaints Respiratory: Respiratory: Reports no additional respiratory complaints Psychiatric: Psychiatric: Reports irritability Endocrine: Endocrine: Reports fatigue [facility] Medical History (Updated 03/23/23 @ 02:07 by Pastora Cowan MD) Alcohol use disorder Bacteremia Bipolar disorder 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 Mother Diabetes Surgical History No pertinent past surgical history Social History Household Members: None Household Members Other:: with dog Housing: Apartment Do you presently have visiting nurse or other home services: No Alcohol intake: current Alcohol intake frequency: 3 or more drinks per day Alcohol type: hard liquor Patient Tobacco Use Status: Never used Tobacco Smoked in Last 30 Days: No e-Cigarette/Vaping Use: Never Used Second Hand Smoke Exposure: No Use of substances other than those prescribed or required for medical reasons: No Advance Directives: Yes Advance Directives on File: Yes Advance Directives Date on File: 02/07/22 service: No Current occupational status: unemployed Meds Allergies Allergy/AdvReac Type Severity Reaction Status Date / Time meropenem [MEROPENEM] Allergy Unknown SWELLING Verified 09/25/22 22:45 penicillin G procaine Allergy Unknown itching Verified 09/25/22 22:45 Penicillins [PENICILLINS] Allergy Unknown SWELLING Verified 09/25/22 22:45 Active Medications: Current Medications Dextrose (Dextrose 50 % 25 Gm/50 Ml Syringe) 25 gm IVPUSH Q15M PRN; Protocol PRN Reason: per Hypoglycemia Standing Ord. Glucose (Glucose Gel 15 Gm Gel..Gram.) 15 gm PO Q15M PRN; Protocol PRN Reason: per Hypoglycemia Standing Ord. Insulin Human Lispro (Insulin Lispro 100 Unit/Ml 3 Ml Vial) 0 unit SUBCUT QIDACHS [facility]; Protocol Insulin Human Regular (Insulin Regular, Human 100 Unit/Ml 3 Ml Vial) 5 unit IVPUSH ONCE ONE Stop: 03/23/23 01:36 Pharmacy Consult (Consult Rx Etoh Phenob Im/Po) 1 each MISCELLANE ONCE PRN; Protocol PRN Reason: Consult order Phenobarbital Sodium (Phenobarbital Sodium 130 Mg/Ml Vial Im Q3hx2) 162 mg IM Q3H [facility] Stop: 03/23/23 07:01 Home Medications Medication Instructions Recorded Confirmed Last Taken Type clonidine HCl 0.2 mg tablet 0.2 mg PO BID 11/11/20 01/08/23 09/20/22 History lamotrigine 200 mg tablet 200 mg PO BID 01/28/22 01/08/23 09/20/22 History citalopram 40 mg tablet 40 mg PO DAILY 02/08/22 01/08/23 09/20/22 History folic acid 1 mg tablet 1 mg PO DAILY 02/08/22 01/08/23 09/20/22 History magnesium oxide 400 mg (241.3 mg 400 mg PO BID 02/08/22 01/08/23 09/20/22 History magnesium) tablet thiamine HCl (vitamin B1) 100 mg 100 mg PO DAILY 02/08/22 01/08/23 09/20/22 History tablet zolpidem 5 mg tablet 1 tab PO BEDTIME 03/14/22 01/08/23 09/20/22 History insulin aspart U-100 100 unit/mL 0 sliding scale dose subcut QIDACHS 06/12/22 01/08/23 09/20/22 History (3 mL) subcutaneous pen (Novolog FlexPen U-100 Insulin aspart) quetiapine 400 mg tablet 1 tab PO BEDTIME 06/12/22 01/08/23 09/20/22 History hydroxyzine pamoate 25 mg capsule 1 cap PO BID PRN anxiety 09/04/22 01/08/23 Unknown History multivitamin (Daily Multi-Vitamin 1 tab PO DAILY 09/26/22 01/08/23 09/20/22 History tablet) quetiapine 400 mg tablet,extended 400 mg PO DAILY@0900 09/26/22 01/08/23 09/20/22 History release 24 hr trazodone 100 mg tablet 200 mg PO BEDTIME PRN Sleep 01/08/23 01/08/23 Unknown History Physical Exam Vital Signs and Narrative: Vital Signs: Last Vital Signs Temp 98.2 F 03/22/23 23:27 Pulse 69 03/22/23 23:27 Resp 16 03/22/23 23:27 BP 111/81 03/22/23 23:27 Pulse Ox 98 03/22/23 23:27 O2 Del Method Room Air 03/22/23 23:27 BMI result Body Mass Index 17.5 Middle-aged male lying in bed in no distress Neck supple, no JVD Regular rate and rhythm, S1-S2 heard Regular breath sounds bilaterally, no wheezing or crackles appreciated Abdomen soft nontender, no guarding, no rigidity Patient is awake, alert and oriented to self, place, time and person ; no focal motor deficit Psych: Normal mood No pedal edema Results Labs 03/22/23 20:40 03/22/23 20:40 Labs: Laboratory Results - last 24 hr 03/22/23 03/22/23 03/22/23 19:36 20:40 20:40 MCV 91.1 MCH 32.8 MCHC 36.0 RDW 11.9 Plt Count 141 L MPV 9.9 Absolute Nucleated RBC 0.000 Nucleated RBC % (auto) 0.0 VBG pH VBG pCO2 VBG pO2 VBG HCO3 VBG O2 Saturation VBG Base Excess Anion Gap 21 H Estim Creat Clear Calc 96.8 Estimated GFR > 60 POC Glucose 424 H* Random Glucose 412 H* Calcium 8.1 L Total Bilirubin 1.1 H AST 61 H ALT 33 Alkaline Phosphatase 341 H Total Protein 6.3 L Albumin 3.2 L Beta-Hydroxybutyrate Urine Color Urine Appearance Urine pH Ur Specific [place] Urine Protein Urine Glucose (UA) Urine Ketones Urine Blood Urine Nitrite Ur Leukocyte Esterase Urine RBC Urine WBC Ur Squamous Epith Cells Urine Bacteria Hyaline Casts Urine Opiates Screen Urine Fentanyl Screen Ur Barbiturates Screen Ur Phencyclidine Scrn Ur Amphetamines Screen U Benzodiazepines Scrn Urine Cocaine Screen U Marijuana (THC) Screen Ethyl Alcohol 421 H* 03/22/23 03/22/23 03/22/23 20:43 20:43 22:00 MCV MCH MCHC RDW Plt Count MPV Absolute Nucleated RBC Nucleated RBC % (auto) VBG pH VBG pCO2 VBG pO2 VBG HCO3 VBG O2 Saturation VBG Base Excess Anion Gap Estim Creat Clear Calc Estimated GFR POC Glucose 348 H Random Glucose Calcium Total Bilirubin AST ALT Alkaline Phosphatase Total Protein Albumin Beta-Hydroxybutyrate Urine Color Yellow Urine Appearance Clear Urine pH 7.0 Ur Specific [place] 1.020 Urine Protein Negative Urine Glucose (UA) >=1000 H Urine Ketones Negative Urine Blood Negative Urine Nitrite Negative Ur Leukocyte Esterase Negative Urine RBC 0-2 Urine WBC 0-5 Ur Squamous Epith Cells 0-2 Urine Bacteria None Seen Hyaline Casts 0-2 Urine Opiates Screen Not Detected Urine Fentanyl Screen Not Detected Ur Barbiturates Screen Not Detected Ur Phencyclidine Scrn Not Detected Ur Amphetamines Screen Not Detected U Benzodiazepines Scrn Not Detected Urine Cocaine Screen Not Detected U Marijuana (THC) Screen Not Detected Ethyl Alcohol 03/22/23 03/22/23 03/22/23 22:59 23:06 23:07 MCV MCH MCHC RDW Plt Count MPV Absolute Nucleated RBC Nucleated RBC % (auto) VBG pH 7.55 H VBG pCO2 31 VBG pO2 77 VBG HCO3 27 H VBG O2 Saturation 95.0 VBG Base Excess 5.8 Anion Gap Estim Creat Clear Calc Estimated GFR POC Glucose 309 H Random Glucose Calcium Total Bilirubin AST ALT Alkaline Phosphatase Total Protein Albumin Beta-Hydroxybutyrate 0.46 H Urine Color Urine Appearance Urine pH Ur Specific [place] Urine Protein Urine Glucose (UA) Urine Ketones Urine Blood Urine Nitrite Ur Leukocyte Esterase Urine RBC Urine WBC Ur Squamous Epith Cells Urine Bacteria Hyaline Casts Urine Opiates Screen Urine Fentanyl Screen Ur Barbiturates Screen Ur Phencyclidine Scrn Ur Amphetamines Screen U Benzodiazepines Scrn Urine Cocaine Screen U Marijuana (THC) Screen Ethyl Alcohol 03/23/23 01:12 MCV MCH MCHC RDW Plt Count MPV Absolute Nucleated RBC Nucleated RBC % (auto) VBG pH VBG pCO2 VBG pO2 VBG HCO3 VBG O2 Saturation VBG Base Excess Anion Gap Estim Creat Clear Calc Estimated GFR POC Glucose 199 H Random Glucose Calcium Total Bilirubin AST ALT Alkaline Phosphatase Total Protein Albumin Beta-Hydroxybutyrate Urine Color Urine Appearance Urine pH Ur Specific [place] Urine Protein Urine Glucose (UA) Urine Ketones Urine Blood Urine Nitrite Ur Leukocyte Esterase Urine RBC Urine WBC Ur Squamous Epith Cells Urine Bacteria Hyaline Casts Urine Opiates Screen Urine Fentanyl Screen Ur Barbiturates Screen Ur Phencyclidine Scrn Ur Amphetamines Screen U Benzodiazepines Scrn Urine Cocaine Screen U Marijuana (THC) Screen Ethyl Alcohol Imaging Radiologist's Impressions: Impressions Head CT 03/22/23 23:40 IMPRESSION: No acute intracranial pathology. Assessment and Plan (1) Alcohol use disorder: Status: Acute Plan This is a 42-year-old male with pertinent history of alcohol use disorder, mood disorder, type 1 diabetes mellitus who presents to the emergency department for concerns of alcohol withdrawal. #. Alcohol use disorder. With concerns for alcohol withdrawal. Patient initiated on phenobarb protocol. Monitor CIWA. Initiating thiamine and folic acid. Consulting addiction team and care team. #. Uncontrolled type 1 diabetes mellitus with hyperglycemia. Initiating basal plus insulin regimen. #. Mood disorder. Continue home mood stabilizers #. Thrombocytopenia due to alcohol use disorder Med rec pending DVT prophylaxis: Lovenox Full code Time Spent With Patient Time: Total time managing care of this patient today ____ minutes. Quality Stroke Does the patient have a stroke diagnosis?: No VTE Prior VTE?: No VTE Risk Level:: Medical - moderate - high VTE Device Contraindication: Treatment Not Indicated VTE Drug Contraindication: N/A - Med Ordered
[2023-03-23 01:44] VITALS: BP 105/77; PULSE 99; RESP 16; TEMP 36.8; O2SAT 98
[2023-03-23] MEDS: Insulin Regular, Human 100 UNIT/ML 3 ML VIAL IVPUSH (02:31)
[2023-03-23] MEDS: Enoxaparin Sodium 40 MG/0.4 ML SYRINGE SUBCUT (02:33)
[2023-03-23] MEDS: Thiamine HCL 100 MG in 0.9 % Sodium Chloride 100 ML 202 MG IV (02:33)
--- NOTE | 2023-03-23 02:34 | MHC.EDTECH ---
PATIENT WAS ASSISTED WITH AMBULATION TO BATHROOM AND BACK TO BED ,PATIENT HAD A LARGE FIRM BOWEL MOVEMENT .
[2023-03-23 02:44] LABS: Glucose, Whole Blood 164 mg/dL (60-115)
--- NOTE | 2023-03-23 02:44 | PC.NURSE ---
Patient is alert and oriented x3, confused at times. POC 164. Dr. Cowan made aware. Patient medicated per OCT. Patient requested a snack, given cheese stick, sun butter and jelly sandwich, tolerated well, no c/o nausea/vomiting at this time. CIWA score 6. Patient ambulated to the restroom with supervision of flight test data acquisition technician, gait is slow, but steady. Patient watching TV in a stretcher bed at e, call gonzalez within patiet's reach.
--- NOTE | 2023-03-23 03:37 | PC.NURSE ---
Nurse to nurse report given to ana Miller RN, patient to be transported to E overflow bed 2 by process maintenance technician.
[2023-03-23] MEDS: PHENobarbitaL sodium 130 MG/ML VIAL IM Q3Hx2 162 MG IM ×2 (03:42→06:14)
[2023-03-23 05:19] LABS: MANUAL DIFF FLAG NO
[2023-03-23 05:35] LABS: Basophils Absolute Auto 0.1 X10*3/uL (0.0-0.2); Basophils Percent Auto 0.8 % (0-2); Eosinophils Absolute Auto 0.1 X10*3/uL (0.0-0.4); Eosinophils Percent Auto 1.8 % (0-4); Hematocrit 31.8 % (42.0-52.0); Hemoglobin 11.2 g/dl (14.0-18.0); Imm Gran Abs Auto 0.03 X10*3/uL (0.00-0.03); Imm Gran Pct Auto 0.4 % (0.0-0.4); Lymphocytes Absolute Auto 2.8 X10*3/uL (1.2-4.9); Lymphocytes Percent Auto 39.5 % (20-40); Mean Corpuscular HGB Conc 35.2 g/dl (31.0-36.0); Mean Corpuscular Hemoglobin 32.7 pg (27.0-33.0); Mean Platelet Volume 10.2 fL (9.4-12.4); Monocytes Absolute Auto 0.5 X10*3/uL (0.1-1.2); Monocytes Percent Auto 7.6 % (2-11); Neutrophils Absolute Auto 3.5 x10*3/uL (2.0-8.3); Neutrophils Percent Auto 49.9 % (45-73); Platelet Count 110 X10*3/uL (160-400); Red Blood Count 3.42 X10*6/uL (4.60-5.80); Red Cell Distribution Width 11.9 % (11.0-16.0); White Blood Count 7.1 X10*3/uL (4.8-10.8)
[2023-03-23 05:55] LABS: Anion Gap 18 (12-20); Blood Urea Nitrogen 4 mg/dL (9-16); Calcium 7.8 mg/dL (8.4-10.2); Carbon Dioxide 21 mmol/L (22-29); Chloride 105 mmol/L (96-108); Creatinine Clr Calc Pharmacy 99.4; Estimated Glomerular Filt Rate > 60; Glucose Random 128 mg/dL (60-115); Potassium 3.3 mmol/L (3.3-5.1); Sodium 141 mmol/L (135-145)
[2023-03-23 06:13] VITALS: BP 106/77; PULSE 85; RESP 18; TEMP 36.5; O2SAT 99
[2023-03-23 07:16] LABS: Glucose, Whole Blood 135 mg/dL (60-115)
--- NOTE | 2023-03-23 08:24 | PHA.MEDREC ---
Pharmacy Consult ? Medication Reconciliation Pharmacy has completed the medication reconciliation. Spoke to patient to confirm meds.
[2023-03-23] MEDS: Folic Acid 1 MG TABLET PO (08:54)
[2023-03-23] MEDS: Thiamine HCL 100 MG TABLET PO (08:54)
[2023-03-23] MEDS: Acetaminophen 325 MG TABLET 650 MG PO (08:54)
--- NOTE | 2023-03-23 10:17 | PM.EVENT ---
Event Note Date of Service: 03/23/23 Event Note: admited this morning for alcohol withdrawal, fairly calm right now, we discussed need for cessation, continue Phenobarbital, Motrin for EWING Time Spent With Patient Time: Total time managing care of this patient today ____ minutes.
[2023-03-23] MEDS: Escitalopram Oxalate 20 MG TABLET PO (10:23)
[2023-03-23] MEDS: QUEtiapine Fumarate 200 MG TABLET PO ×2 (10:23→20:31)
[2023-03-23] MEDS: Multivitamin TABLET 1 TAB PO (10:23)
[2023-03-23] MEDS: lamoTRIgine 100 MG TABLET 200 MG PO ×2 (10:23→20:31)
--- NOTE | 2023-03-23 10:59 | MHC.CM.PN ---
Addendum entered by Nelida Silva 03/23/23 11:57: IMM DELIVERED Original Note: [facility] DELIVERED PT LIVES ALONE IN AN APT. USES CANE/WALKER AT [facility] WHEN BACK IS OUT. +HCP (PT BELIEVES HE HAS ONE AT PCP OFFICE) +COVID VAX X [address] FELDMAN AT [facility]. DP: HOME, NO SERVICES ANTICIPATED. PT MAY NEED [facility]TLE RIDE HOME VS. LYFT. CM WILL CONTINUE TO FOLLOW FOR CHANGE IN DC PLAN/NEEDS.
[2023-03-23 11:14] LABS: Glucose, Whole Blood 208 mg/dL (60-115)
[2023-03-23] MEDS: Insulin Lispro 100 UNIT/ML 3 ML VIAL SUBCUT ×2 (11:27→20:30)
--- NOTE | 2023-03-23 12:31 | MHC.EDTECH ---
gave patient his lunch. patient was resting and wanted staff to leave it on his tray for when he was ready to eat.
[2023-03-23 16:44] VITALS: BP 110/77; PULSE 87; RESP 16; TEMP 36; O2SAT 98
[2023-03-23 16:54] LABS: Glucose, Whole Blood < 10 mg/dL (60-115)
[2023-03-23 16:54] LABS: Glucose, Whole Blood 10 mg/dL (60-115)
[2023-03-23 17:04] LABS: Glucose, Whole Blood 548 mg/dL (60-115)
[2023-03-23 17:04] LABS: Glucose, Whole Blood 282 mg/dL (60-115)
[2023-03-23] MEDS: Dextrose 50 % 25 GM/50 ML SYRINGE IVPUSH ×2 (17:10→17:11)
[2023-03-23] MEDS: Dextrose 5 % 1,000 ML 100 ML IV (17:10)
[2023-03-23 17:18] VITALS: BP 101/69; PULSE 74; RESP 16; TEMP 36.2; O2SAT 100
--- NOTE | 2023-03-23 17:18 | PM.EVENT ---
Event Note Date of Service: 03/23/23 Event Note: Rapid response called for decreased responsiveness. Patient not responding to verbal or painful stimuli. Vitals obtained and were stable, POC checked and noted to be critical <10; 2 amps of d50 administered, pt began waking up, color improved and eventually he began talking. He is sleepy but oriented. Lantus will be d/c, will start D5w. closely monitor POCs. on multiple sedating medications, and on phenobarbitol for alcohol withdrawal. will hold seroquel 400 bedtime dose and ambien. can resume when more awake. Time Spent With Patient Time: Total time managing care of this patient today ____ minutes.
[2023-03-23 17:21] VITALS: BP 101/69; PULSE 74; RESP 16; TEMP 36.2; O2SAT 100
[2023-03-23 18:05] LABS: Glucose Random 265 mg/dL (60-115)
[2023-03-23] MEDS: Potassium Chloride/H20 10 MEQ/100 ML PIGGYBACK 100 MEQ IV ×2 (18:11→19:19)
[2023-03-23 20:00] VITALS: BP 128/87; PULSE 72; RESP 16; TEMP 36.7; O2SAT 100
[2023-03-23 20:27] LABS: Glucose, Whole Blood 257 mg/dL (60-115)
[2023-03-23] MEDS: PHENobarbitaL 15 MG TABLET 45 MG PO (20:30)
[2023-03-24] MEDS: Enoxaparin Sodium 40 MG/0.4 ML SYRINGE SUBCUT (00:54)
[2023-03-24 01:04] VITALS: BP 127/88; PULSE 92; RESP 16; TEMP 36.1; O2SAT 98
[2023-03-24] MEDS: Dextrose 5 % 1,000 ML 100 ML IV (02:44)
[2023-03-24 07:26] VITALS: BP 116/83; PULSE 86; RESP 15; TEMP 36.1; O2SAT 97
[2023-03-24 07:32] LABS: Glucose, Whole Blood 187 mg/dL (60-115)
[2023-03-24] MEDS: Insulin Lispro 100 UNIT/ML 3 ML VIAL SUBCUT ×3 (08:18→12:00)
[2023-03-24] MEDS: Folic Acid 1 MG TABLET PO (08:19)
[2023-03-24] MEDS: QUEtiapine Fumarate 200 MG TABLET PO ×2 (08:19→20:52)
[2023-03-24] MEDS: Multivitamin TABLET 1 TAB PO (08:19)
[2023-03-24] MEDS: PHENobarbitaL 15 MG TABLET 45 MG PO ×2 (08:19→20:52)
[2023-03-24] MEDS: lamoTRIgine 100 MG TABLET 200 MG PO ×2 (08:19→20:52)
[2023-03-24] MEDS: Escitalopram Oxalate 20 MG TABLET PO (08:19)
[2023-03-24] MEDS: Thiamine HCL 100 MG TABLET PO (08:19)
--- NOTE | 2023-03-24 08:34 | PM.DS ---
DS: Providers Provider Date of Service: 03/24/23 Date of admission: 03/23/23 08:41 Primary care physician: Unknown Physician Consults: 03/22/23 21:49 Consult to Care Team Stat Comment: Reason for consultation: detox 03/23/23 01:36 Addiction Medicine Routine Consulting Provider: Addiction Covering Reason for consultation: alcohol use disorder DS: Diagnosis Discharge Diagnosis (1) Alcohol use disorder: Status: Acute DS: Summary Hospital Course Hospital Course: Chief Complaint: Alcohol withdrawal This is a 42-year-old male with pertinent history of alcohol use disorder, mood disorder, type 1 diabetes mellitus who presents to the emergency department for concerns of alcohol withdrawal.? Patient states he drinks rum every day and his last drink was on the day of presentation.? He was brought by EMS as his mother was concerned by his behavior.? Patient states he does have a history of alcohol withdrawal seizures and DTs.? Patient states he has been getting nauseous, tremulous and sweaty since his last drink.? Denies fever, chills, chest discomfort, palpitations, shortness of breath, abdominal pain, changes in urinary or bowel habits.? 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 Discharge coordination time: Greater than 30 minutes Quality: Safe Use of Opioids Does Pt have an Active Cancer Diagnosis on the Problem List?: No Quality: Stroke Does the patient have a stroke diagnosis?: No Physical Exam Vital Signs: Vital Signs: Last Vital Signs Temp 97.0 F 03/24/23 07:26 Pulse 86 03/24/23 07:26 Resp 15 03/24/23 07:26 BP 116/83 03/24/23 07:26 Pulse Ox 97 03/24/23 07:26 O2 Del Method Room Air 03/24/23 07:26 BMI result Body Mass Index 17.5 DS: Data Data Completed and Pending Labs on day of discharge: Laboratory Results - last 24 hr 03/23/23 03/23/23 03/23/23 05:09 11:10 16:49 POC Glucose 208 H < 10 L* Random Glucose Total Creatine Kinase 85 03/23/23 03/23/23 03/23/23 16:51 16:58 17:00 POC Glucose 10 L* 548 H* 282 H Random Glucose Total Creatine Kinase 03/23/23 03/23/23 03/24/23 17:22 20:10 07:26 POC Glucose 257 H 187 H Random Glucose 265 H Total Creatine Kinase Discharge Plan Discharge Anticipated Discharge Date/Time: 03/24/23 08:26 Patient Disposition: Home, Self-Care Discharge Diagnosis: Alcohol withdrawal, hyperglycemia Referrals: Physician,Unknown J [Primary Care Provider] - 1 Week Discharge Medications: Continued (DME) lancets [TRUEplus Lancets] 33 gauge misc See Rx Instructions .Route Qty: 200 11RF Rx Instructions: Four times a day (DME) pen needle, diabetic [BD July 2nd Gen Pen Needle] 32 gauge x 5/32 needle See Rx Instructions .MEDSUPPLY Qty: 150 4RF Rx Instructions: 5 times a day (DME) FreeStyle Lite Strips Strip See Rx Instructions .Route Qty: 150 11RF Rx Instructions: Four times a day quetiapine 400 mg tablet 1 tab PO BEDTIME quetiapine 400 mg Tablet Extended Release 24 Hr 400 mg PO DAILY@0900 multivitamin [Daily Multi-Vitamin] Tablet 1 tab PO DAILY lamotrigine 200 mg tablet 200 mg PO BID zolpidem 5 mg tablet 1 tab PO BEDTIME dextrose [Glutose-15] 40 % gel 1 ea PO DAILY PRN (Reason: Hypoglycemia) insulin glargine [Lantus Solostar U-100 Insulin] 100 unit/mL (3 mL) insulin pen 30 unit subcut BEDTIME citalopram 40 mg tablet 40 mg PO DAILY thiamine HCl (vitamin B1) 100 mg tablet 100 mg PO DAILY folic acid 1 mg tablet 1 mg PO DAILY Diet: Diabetic diet Activity on Discharge: As tolerated Stand Alone Forms: Patient Portal Discharge page Care Plan Goals: Abstinence from alcohol Health Concerns: alcohol depedence Plan of Treatment: avoid alcohol, attend AA resources resume your medication as before Assessment: as above
[2023-03-24 10:25] VITALS: PULSE 104; O2SAT 100
[2023-03-24 11:08] LABS: Glucose, Whole Blood 417 mg/dL (60-115)
--- NOTE | 2023-03-24 11:41 | HO.PM.IMPN ---
Subjective Subjective Date of Service: 03/25/23 Interval History: f/u on alcohol withdrawal, ataxia--he is getting better, frequent hypoglycemia, most recent sugar 109 Physical Exam Vital Signs: Vital Signs: Last Vital Signs Temp 97.0 F 03/24/23 07:26 Pulse 104 H 03/24/23 10:25 Resp 15 03/24/23 07:26 BP 116/83 03/24/23 07:26 Pulse Ox 100 03/24/23 10:25 O2 Del Method Room Air 03/24/23 07:26 BMI result Body Mass Index 17.5 Const: Other: General: AO X 3, no acute distress Resp: CTA bilateral CVS: S1,S2,RRR GI: +BS, NT, no distention Skin: No rash Neuro: motor grossly intact Psych: appropriate affect Objective Data Active Medications Acetaminophen (Acetaminophen 325 Mg Tablet) 650 mg PO Q6H PRN PRN Reason: Pain, Mild (Pain Scale 1-3) Last Admin: 03/23/23 08:54 Dose: 650 mg Documented By: MARCELO Dextrose (Dextrose 50 % 25 Gm/50 Ml Syringe) 25 gm IVPUSH Q15M PRN; Protocol PRN Reason: per Hypoglycemia Standing Ord. Last Admin: 03/23/23 17:11 Dose: 25 gm Documented By: LEONEL Comments: per MD Ornelas give second bolus Enoxaparin Sodium (Enoxaparin Sodium 40 Mg/0.4 Ml Syringe) 40 mg SUBCUT Q24H [facility] Last Admin: 03/24/23 00:54 Dose: 40 mg Documented By: BETO Escitalopram Oxalate (Escitalopram Oxalate 20 Mg Tablet) 20 mg PO DAILY [facility] Last Admin: 03/24/23 08:19 Dose: 20 mg Documented By: PRADEEP Folic Acid (Folic Acid 1 Mg Tablet) 1 mg PO DAILY [facility] Last Admin: 03/24/23 08:19 Dose: 1 mg Documented By: PRADEEP Glucose (Glucose Gel 15 Gm Gel..Gram.) 15 gm PO Q15M PRN; Protocol PRN Reason: per Hypoglycemia Standing Ord. Glucose (Glucose Gel 15 Gm Gel..Gram.) 15 gm PO DAILY PRN PRN Reason: Hypoglycemia Dextrose (D5w) 1,000 mls @ 100 mls/hr IV .Q10H [facility] Last Admin: 03/24/23 02:44 Dose: 100 mls/hr Documented By: BETO Insulin Human Lispro (Insulin Lispro 100 Unit/Ml 3 Ml Vial) 0 unit SUBCUT QIDACHS [facility]; Protocol Last Admin: 03/24/23 11:35 Dose: 15 unit Documented By: PRADEEP Comments: give [address] Mims Lamotrigine (Lamotrigine 100 Mg Tablet) 200 mg PO BID [facility] Last Admin: 03/24/23 08:19 Dose: 200 mg Documented By: PRADEEP Melatonin (Melatonin 3 Mg Tablet) 6 mg PO BEDTIME PRN PRN Reason: Insomnia Multivitamins/Vitamin C (Multivitamin Tablet) 1 tab PO DAILY [facility] Last Admin: 03/24/23 08:19 Dose: 1 tab Documented By: PRADEEP Ondansetron HCl (Ondansetron Hcl 4 Mg/2 Ml Vial) 4 mg IVPUSH Q8H PRN PRN Reason: Nausea and Vomiting Pharmacy Consult (Consult Rx Etoh Phenob Im/Po) 1 each MISCELLANE ONCE PRN; Protocol PRN Reason: Consult order Pharmacy Consult (Consult Rx Perform Med Rec) 1 each MISCELLANE ONCE PRN PRN Reason: Consult order Phenobarbital (Phenobarbital 15 Mg Tablet) 45 mg PO BID [facility] Stop: 03/25/23 09:01 Last Admin: 03/24/23 08:19 Dose: 45 mg Documented By: PRADEEP Phenobarbital (Phenobarbital 15 Mg Tablet) 15 mg PO BID [facility] Stop: 03/28/23 09:01 Phenobarbital (Phenobarbital 15 Mg Tablet) 15 mg PO DAILY [facility] Stop: 03/30/23 09:01 Quetiapine Fumarate (Quetiapine Fumarate 400 Mg Tablet) 400 mg PO BEDTIME [facility] Quetiapine Fumarate (Quetiapine Fumarate 200 Mg Tablet) 200 mg PO BID [facility] Last Admin: 03/24/23 08:19 Dose: 200 mg Documented By: PRADEEP Sodium Chloride (0.9 % Sodium Chloride Flush 3 Ml Syringe) 3 ml IVFLUSH QSHIFT [facility] Last Admin: 03/24/23 08:13 Dose: Not Given Documented By: PRADEEP Non-Admin Reason: IV Running Thiamine HCl (Thiamine Hcl 100 Mg Tablet) 100 mg PO DAILY [facility] Last Admin: 03/24/23 08:19 Dose: 100 mg Documented By: PRADEEP Zolpidem Tartrate (Zolpidem Tartrate 5 Mg Tablet) 5 mg PO BEDTIME [facility] Labs 03/23/23 05:09 03/23/23 17:22 Labs: Laboratory Results - last 24 hr 03/23/23 03/23/23 03/23/23 16:49 16:51 16:58 POC Glucose < 10 L* 10 L* 548 H* Random Glucose 03/23/23 03/23/23 03/23/23 17:00 17:22 20:10 POC Glucose 282 H 257 H Random Glucose 265 H 03/24/23 03/24/23 07:26 11:04 POC Glucose 187 H 417 H* Random Glucose Assessment and Plan (1) Alcoholic intoxication: Status: Acute (2) Hyperglycemic crisis due to diabetes mellitus: Status: Acute (3) Ataxia: Status: Acute Plan This is a 42-year-old male with pertinent history of alcohol use disorder, mood disorder, type 1 diabetes mellitus who presents to the emergency department for concerns of alcohol withdrawal. #. Alcohol use disorder, high risk for withdrawal, continue Phenobarbital, folic acid, and thiamine #. Uncontrolled type 1 diabetes mellitus with hyperglycemia and hypoglycemia. hold lantus d/t hypoglcemia, continue SSI, frequent sugars #. Mood disorder. Continue home mood stabilizers #. Thrombocytopenia due to alcohol use disorder #. weakness, ataxia related to alcohol use--PT is recommeding STR, but he doesn't want to, so likely discharge home once blood sugars are stable DVT prophylaxis: Lovenox Full code Time Spent With Patient Time: Total time managing care of this patient today ____ minutes. Quality Stroke Does the patient have a stroke diagnosis?: No VTE Prior VTE?: No VTE Risk Level:: Medical - moderate - high VTE Device Contraindication: Treatment Not Indicated VTE Drug Contraindication: N/A - Med Ordered
--- NOTE | 2023-03-24 12:09 | MHC.CM.PN ---
CM INFORMED PATIENT IS READY TO DC PT IS RECOMMENDING STR REFERRALS MADE STR WILL REQUIRE INSURANCE AUTH IF A BED IS OFFERED.
[2023-03-24] MEDS: Insulin Glargine,Hum.rec.anlog 100 UNIT/ML 10 ML VIAL 20 UNIT SUBCUT (14:02)
[2023-03-24 15:05] VITALS: BP 98/62; PULSE 96; RESP 16; TEMP 36.3; O2SAT 98
[2023-03-24 16:15] VITALS: BP 102/80
[2023-03-24 16:24] LABS: Glucose, Whole Blood 27 mg/dL (60-115)
[2023-03-24] MEDS: Glucose Gel 15 GM GEL..GRAM. PO (16:24)
[2023-03-24 16:51] LABS: Glucose, Whole Blood 78 mg/dL (60-115)
[2023-03-24] MEDS: Dextrose 5 % 1,000 ML 50 ML IVCONT (17:41)
[2023-03-24 20:00] VITALS: BP 113/69; PULSE 95; RESP 16; TEMP 36.1; O2SAT 99
[2023-03-25] MEDS: Enoxaparin Sodium 40 MG/0.4 ML SYRINGE SUBCUT (00:56)
[2023-03-25] MEDS: Glucose Gel 15 GM GEL..GRAM. PO ×2 (01:21→07:21)
[2023-03-25 01:22] LABS: Glucose, Whole Blood 45 mg/dL (60-115)
[2023-03-25 01:22] LABS: Glucose, Whole Blood 67 mg/dL (60-115)
[2023-03-25 01:43] LABS: Glucose, Whole Blood 66 mg/dL (60-115)
[2023-03-25] MEDS: Dextrose 50 % 25 GM/50 ML SYRINGE IVPUSH (01:45)
[2023-03-25 01:51] VITALS: BP 106/74; PULSE 77; RESP 16; TEMP 36.7; O2SAT 100
[2023-03-25 02:23] VITALS: BP 94/60; PULSE 105; RESP 16; TEMP 36.2; O2SAT 100
[2023-03-25] MEDS: 0.9 % Sodium Chloride 1,000 ML 999 ML IV (03:24)
[2023-03-25 03:27] LABS: Glucose, Whole Blood 276 mg/dL (60-115)
[2023-03-25 04:00] VITALS: BP 102/68; PULSE 85; RESP 16; TEMP 36.1; O2SAT 99
--- NOTE | 2023-03-25 04:32 | PC.NURSE ---
pt c/o dizziness and sweaty at 01:20, checked glucose, poc 45, dr. Cowan notified given prn glucose gel, after 15 min. recheck poc 66, dr Cowan notified, given PRN D50% IVP, rechecked poc 276, bp 94/60 HR 105. order bolus N.S, after bolus bp 102/68 HR 85. pt states that feels better. will monitor s/s of hypoglycemia.
[2023-03-25 07:18] LABS: Glucose, Whole Blood 46 mg/dL (60-115)
[2023-03-25 07:25] VITALS: BP 110/81; PULSE 82; RESP 18; TEMP 36.4; O2SAT 99
[2023-03-25 08:04] LABS: Glucose, Whole Blood 109 mg/dL (60-115)
--- NOTE | 2023-03-25 09:21 | P.PNIM_ITS ---
Subjective Subjective Date of Service: 03/25/23 Interval History: Another episode of hypoglycemia this morning, sugar 46, corrected Physical Exam Vital Signs: Vital Signs: Last Vital Signs Temp 97.6 F 03/25/23 07:25 Pulse 82 03/25/23 07:25 Resp 18 03/25/23 07:25 BP 110/81 03/25/23 07:25 Pulse Ox 99 03/25/23 07:25 O2 Del Method Room Air 03/25/23 07:25 BMI result Body Mass Index 17.5 Const: Other: General: AO X 3, no acute distress Resp: CTA bilateral CVS: S1,S2,RRR GI: +BS, NT, no distention Skin: No rash Neuro: motor grossly intact Psych: appropriate affect Objective Data Active Medications Acetaminophen (Acetaminophen 325 Mg Tablet) 650 mg PO Q6H PRN PRN Reason: Pain, Mild (Pain Scale 1-3) Last Admin: 03/23/23 08:54 Dose: 650 mg Documented By: MARCELO Dextrose (Dextrose 50 % 25 Gm/50 Ml Syringe) 25 gm IVPUSH Q15M PRN; Protocol PRN Reason: per Hypoglycemia Standing Ord. Last Admin: 03/25/23 01:45 Dose: 25 gm Documented By: BEOT Enoxaparin Sodium (Enoxaparin Sodium 40 Mg/0.4 Ml Syringe) 40 mg SUBCUT Q24H [facility] Last Admin: 03/25/23 00:56 Dose: 40 mg Documented By: BETO Escitalopram Oxalate (Escitalopram Oxalate 20 Mg Tablet) 20 mg PO DAILY [facility] Last Admin: 03/24/23 08:19 Dose: 20 mg Documented By: PRADEEP Folic Acid (Folic Acid 1 Mg Tablet) 1 mg PO DAILY [facility] Last Admin: 03/24/23 08:19 Dose: 1 mg Documented By: PRADEEP Glucose (Glucose Gel 15 Gm Gel..Gram.) 15 gm PO Q15M PRN; Protocol PRN Reason: per Hypoglycemia Standing Ord. Last Admin: 03/25/23 07:21 Dose: 15 gm Documented By: PRADEEP Glucose (Glucose Gel 15 Gm Gel..Gram.) 15 gm PO DAILY PRN PRN Reason: Hypoglycemia Dextrose (D5w) 1,000 mls @ 100 mls/hr IVCONT .Q10H [facility] Last Admin: 03/24/23 17:41 Dose: 50 mls/hr Documented By: PRADEEP Insulin Human Lispro (Insulin Lispro 100 Unit/Ml 3 Ml Vial) 0 unit SUBCUT Q IDACHS [facility]; Protocol Last Admin: 03/24/23 20:51 Dose: Not Given Documented By: BETO Non-Admin Reason: No Insulin Coverage Lamotrigine (Lamotrigine 100 Mg Tablet) 200 mg PO BID [facility] Last Admin: 03/24/23 20:52 Dose: 200 mg Documented By: BETO Melatonin (Melatonin 3 Mg Tablet) 6 mg PO BEDTIME PRN PRN Reason: Insomnia Multivitamins/Vitamin C (Multivitamin Tablet) 1 tab PO DAILY [facility] Last Admin: 03/24/23 08:19 Dose: 1 tab Documented By: PRADEEP Ondansetron HCl (Ondansetron Hcl 4 Mg/2 Ml Vial) 4 mg IVPUSH Q8H PRN PRN Reason: Nausea and Vomiting Pharmacy Consult (Consult Rx Etoh Phenob Im/Po) 1 each MISCELLANE ONCE PRN; Protocol PRN Reason: Consult order Pharmacy Consult (Consult Rx Perform Med Rec) 1 each MISCELLANE ONCE PRN PRN Reason: Consult order Phenobarbital (Phenobarbital 15 Mg Tablet) 15 mg PO BID [facility] Stop: 03/28/23 09:01 Phenobarbital (Phenobarbital 15 Mg Tablet) 15 mg PO DAILY [facility] Stop: 03/30/23 09:01 Quetiapine Fumarate (Quetiapine Fumarate 400 Mg Tablet) 400 mg PO BEDTIME [facility] Quetiapine Fumarate (Quetiapine Fumarate 200 Mg Tablet) 200 mg PO BID [facility] Last Admin: 03/24/23 20:52 Dose: 200 mg Documented By: BETO Sodium Chloride (0.9 % Sodium Chloride Flush 3 Ml Syringe) 3 ml IVFLUSH QSHIFT [facility] Last Admin: 03/24/23 21:23 Dose: Not Given Documented By: BETO Non-Admin Reason: IV Running Thiamine HCl (Thiamine Hcl 100 Mg Tablet) 100 mg PO DAILY [facility] Last Admin: 03/24/23 08:19 Dose: 100 mg Documented By: PRADEEP Zolpidem Tartrate (Zolpidem Tartrate 5 Mg Tablet) 5 mg PO BEDTIME [facility] Labs 03/23/23 05:09 03/23/23 17:22 Labs: Laboratory Results - last 24 hr 03/24/23 03/24/23 03/24/23 11:04 16:20 16:47 POC Glucose 417 H* 27 L* 78 03/24/23 03/25/23 03/25/23 20:47 01:17 01:38 POC Glucose 67 45 L* 66 03/25/23 03/25/23 03/25/23 02:02 07:14 08:00 POC Glucose 276 H 46 L* 109 Assessment and Plan (1) Alcoholic intoxication: Status: Acute (2) Hyperglycemic crisis due to diabetes mellitus: Status: Acute (3) Ataxia: Status: Acute Plan This is a 42-year-old male with pertinent history of alcohol use disorder, mood disorder, type 1 diabetes mellitus who presents to the emergency department for concerns of alcohol withdrawal. #. Alcohol use disorder, high risk for withdrawal, continue Phenobarbital, folic acid, and thiamine #. Uncontrolled type 1 diabetes mellitus with hyperglycemia and hypoglycemia. hold lantus d/t hypoglcemia, continue SSI, monitor sugars closely #. Mood disorder. Continue home mood stabilizers #. Thrombocytopenia due to alcohol use disorder #. weakness, ataxia related to alcohol use--PT is recommeding STR, but he doesn't want to, so likely discharge home once blood sugars are stable, out of bed ambulate with staff DVT prophylaxis: Lovenox Full code Time Spent With Patient Time: Total time managing care of this patient today ____ minutes. Quality Stroke Does the patient have a stroke diagnosis?: No VTE Prior VTE?: No VTE Risk Level:: Medical - moderate - high VTE Device Contraindication: Treatment Not Indicated VTE Drug Contraindication: N/A - Med Ordered
[2023-03-25] MEDS: lamoTRIgine 100 MG TABLET 200 MG PO ×2 (09:49→21:14)
[2023-03-25] MEDS: Thiamine HCL 100 MG TABLET PO (09:49)
[2023-03-25] MEDS: Folic Acid 1 MG TABLET PO (09:49)
[2023-03-25] MEDS: Escitalopram Oxalate 20 MG TABLET PO (09:49)
[2023-03-25] MEDS: Multivitamin TABLET 1 TAB PO (09:50)
[2023-03-25] MEDS: PHENobarbitaL 15 MG TABLET 45 MG PO (09:50)
[2023-03-25] MEDS: QUEtiapine Fumarate 200 MG TABLET PO ×2 (09:50→21:14)
[2023-03-25 11:10] LABS: Glucose, Whole Blood 166 mg/dL (60-115)
[2023-03-25] MEDS: Dextrose 5 % 1,000 ML 100 ML IVCONT ×2 (11:48→21:19)
[2023-03-25 15:36] VITALS: BP 104/75; PULSE 79; RESP 20; TEMP 36; O2SAT 99
[2023-03-25 16:20] LABS: Glucose, Whole Blood 142 mg/dL (60-115)
[2023-03-25] MEDS: ondansetron HCL 4 MG/2 ML VIAL IVPUSH (19:38)
[2023-03-25 20:00] VITALS: BP 124/86; PULSE 74; RESP 20; TEMP 36; O2SAT 100
[2023-03-25 20:52] LABS: Glucose, Whole Blood 202 mg/dL (60-115)
[2023-03-25] MEDS: PHENobarbitaL 15 MG TABLET PO (21:14)
[2023-03-25] MEDS: Acetaminophen 325 MG TABLET 650 MG PO (21:19)
[2023-03-25 22:39] LABS: Glucose, Whole Blood 231 mg/dL (60-115)
[2023-03-25] MEDS: Insulin Lispro 100 UNIT/ML 3 ML VIAL SUBCUT (23:30)
[2023-03-25] MEDS: Metoclopramide HCl 10 MG/2 ML VIAL 5 MG IVPUSH (23:31)
[2023-03-26] MEDS: Enoxaparin Sodium 40 MG/0.4 ML SYRINGE SUBCUT (01:11)
[2023-03-26 02:58] VITALS: BP 105/73; PULSE 81; RESP 16; TEMP 36; O2SAT 100
--- NOTE | 2023-03-26 02:59 | PC.NURSE ---
pt vomited twice and sweaty, notified, received Reglan order. given by this nurse. pt iV infiltrated to right AC. many nurses tried to put new IV line, but failed it. dr. Cowan notified and will pass along to morning team. CONT to monitor s/s of hypoglycemia.
[2023-03-26 07:06] VITALS: BP 113/78; PULSE 80; RESP 20; TEMP 36.1; O2SAT 100
[2023-03-26 07:21] LABS: Glucose, Whole Blood 139 mg/dL (60-115)
[2023-03-26] MEDS: lamoTRIgine 100 MG TABLET 200 MG PO ×2 (09:10→21:01)
[2023-03-26] MEDS: PHENobarbitaL 15 MG TABLET PO ×2 (09:10→21:01)
[2023-03-26] MEDS: Multivitamin TABLET 1 TAB PO (09:10)
[2023-03-26] MEDS: QUEtiapine Fumarate 200 MG TABLET PO ×2 (09:11→21:01)
[2023-03-26] MEDS: Folic Acid 1 MG TABLET PO (09:11)
[2023-03-26] MEDS: Thiamine HCL 100 MG TABLET PO (09:11)
[2023-03-26] MEDS: Escitalopram Oxalate 20 MG TABLET PO (09:11)
[2023-03-26 09:16] LABS: Glucose, Whole Blood 180 mg/dL (60-115)
[2023-03-26] MEDS: ondansetron HCL 4 MG/2 ML VIAL IVPUSH (09:16)
[2023-03-26] MEDS: Acetaminophen 325 MG TABLET 650 MG PO ×2 (09:17→21:00)
--- NOTE | 2023-03-26 09:19 | P.PNIM_ITS ---
Subjective Subjective Date of Service: 03/26/23 Interval History: No hypoglycemia overnight, n/v overnight Physical Exam Vital Signs: Vital Signs: Last Vital Signs Temp 97 F 03/26/23 07:06 Pulse 80 03/26/23 07:06 Resp 20 03/26/23 07:06 BP 113/78 03/26/23 07:06 Pulse Ox 100 03/26/23 07:06 O2 Del Method Room Air 03/26/23 07:06 BMI result Body Mass Index 17.5 Const: Other: General: AO X 3, no acute distress Resp: CTA bilateral CVS: S1,S2,RRR GI: +BS, NT, no distention Skin: No rash Neuro: motor grossly intact Psych: appropriate affect Objective Data Active Medications Acetaminophen (Acetaminophen 325 Mg Tablet) 650 mg PO Q6H PRN PRN Reason: Pain, Mild (Pain Scale 1-3) Last Admin: 03/25/23 21:19 Dose: 650 mg Documented By: BETO Dextrose (Dextrose 50 % 25 Gm/50 Ml Syringe) 25 gm IVPUSH Q15M PRN; Protocol PRN Reason: per Hypoglycemia Standing Ord. Last Admin: 03/25/23 01:45 Dose: 25 gm Documented By: BETO Enoxaparin Sodium (Enoxaparin Sodium 40 Mg/0.4 Ml Syringe) 40 mg SUBCUT Q24H [facility] Last Admin: 03/26/23 01:11 Dose: 40 mg Documented By: BETO Escitalopram Oxalate (Escitalopram Oxalate 20 Mg Tablet) 20 mg PO DAILY [facility] Last Admin: 03/25/23 09:49 Dose: 20 mg Documented By: PRADEEP Folic Acid (Folic Acid 1 Mg Tablet) 1 mg PO DAILY [facility] Last Admin: 03/25/23 09:49 Dose: 1 mg Documented By: PRADEEP Glucose (Glucose Gel 15 Gm Gel..Gram.) 15 gm PO Q15M PRN; Protocol PRN Reason: per Hypoglycemia Standing Ord. Last Admin: 03/25/23 07:21 Dose: 15 gm Documented By: PRADEEP Glucose (Glucose Gel 15 Gm Gel..Gram.) 15 gm PO DAILY PRN PRN Reason: Hypoglycemia Dextrose (D5w) 1,000 mls @ 100 mls/hr IVCONT .Q10H [facility] Last Admin: 03/26/23 06:22 Dose: Not Given Documented By: BETO Non-Admin Reason: No Access Insulin Human Lispro (Insulin Lispro 100 Unit/Ml 3 Ml Vial) 0 unit SUBCUT QIDACHS [facility]; Protocol Last Admin: 03/26/23 07:30 Dose: Not Given Documented By: JARET Non-Admin Reason: No Insulin Coverage Lamotrigine (Lamotrigine 100 Mg Tablet) 200 mg PO BID [facility] Last Admin: 03/25/23 21:14 Dose: 200 mg Documented By: BETO Melatonin (Melatonin 3 Mg Tablet) 6 mg PO BEDTIME PRN PRN Reason: Insomnia Multivitamins/Vitamin C (Multivitamin Tablet) 1 tab PO DAILY [facility] Last Admin: 03/25/23 09:50 Dose: 1 tab Documented By: PRADEEP Ondansetron HCl (Ondansetron Hcl 4 Mg/2 Ml Vial) 4 mg IVPUSH Q8H PRN PRN Reason: Nausea and Vomiting Last Admin: 03/25/23 19:38 Dose: 4 mg Documented By: BETO Pharmacy Consult (Consult Rx Etoh Phenob Im/Po) 1 each MISCELLANE ONCE PRN; Protocol PRN Reason: Consult order Pharmacy Consult (Consult Rx Perform Med Rec) 1 each MISCELLANE ONCE PRN PRN Reason: Consult order Phenobarbital (Phenobarbital 15 Mg Tablet) 15 mg PO BID [facility] Stop: 03/27/23 09:01 Last Admin: 03/25/23 21:14 Dose: 15 mg Documented By: BETO Phenobarbital (Phenobarbital 15 Mg Tablet) 15 mg PO DAILY [facility] Stop: 03/29/23 09:01 Quetiapine Fumarate (Quetiapine Fumarate 400 Mg Tablet) 400 mg PO BEDTIME [facility] Quetiapine Fumarate (Quetiapine Fumarate 200 Mg Tablet) 200 mg PO BID [facility] Last Admin: 03/25/23 21:14 Dose: 200 mg Documented By: BETO Sodium Chloride (0.9 % Sodium Chloride Flush 3 Ml Syringe) 3 ml IVFLUSH QSHIFT [facility] Last Admin: 03/26/23 08:59 Dose: Not Given Documented By: JARET Non-Admin Reason: No Access Thiamine HCl (Thiamine Hcl 100 Mg Tablet) 100 mg PO DAILY [facility] Last Admin: 03/25/23 09:49 Dose: 100 mg Documented By: PRADEEP Zolpidem Tartrate (Zolpidem Tartrate 5 Mg Tablet) 5 mg PO BEDTIME [facility] Labs 03/23/23 05:09 03/23/23 17:22 Labs: Laboratory Results - last 24 hr 03/25/23 03/25/23 03/25/23 11:06 16:17 20:48 POC Glucose 166 H 142 H 202 H 03/25/23 03/26/23 03/26/23 22:35 07:11 09:12 POC Glucose 231 H 139 H 180 H Assessment and Plan (1) Alcoholic intoxication: Status: Acute (2) Hyperglycemic crisis due to diabetes mellitus: Status: Acute (3) Ataxia: Status: Acute Plan This is a 42-year-old male with pertinent history of alcohol use disorder, mood disorder, type 1 diabetes mellitus who presents to the emergency department for concerns of alcohol withdrawal. #. Alcohol use disorder, high risk for withdrawal, but no withdrawal symptoms at this time, continue Phenobarbital, folic acid, and thiamine #. Uncontrolled type 1 diabetes mellitus with hyperglycemia and hypoglycemia. holding lantus d/t hypoglcemia, continue SSI, monitor sugars closely, restart Lantus at 10, check BMP to rule dka #. Mood disorder. Continue home mood stabilizers #. Thrombocytopenia due to alcohol use disorder #. weakness, ataxia related to alcohol use--PT is recommeding STR, but he doesn't want to, so likely discharge home once blood sugars are stable, out of bed ambulate with staff #. Abdominal discomfort, n/v--check bmp to rule dka DVT prophylaxis: Lovenox Full code need for inpt: hypoglycemia Time Spent With Patient Time: Total time managing care of this patient today ____ minutes. Quality Stroke Does the patient have a stroke diagnosis?: No VTE Prior VTE?: No VTE Risk Level:: Medical - moderate - high VTE Device Contraindication: Treatment Not Indicated VTE Drug Contraindication: N/A - Med Ordered
[2023-03-26] MEDS: 0.9 % Sodium Chloride Flush 3 ML SYRINGE IVFLUSH (09:21)
--- NOTE | 2023-03-26 10:20 | MHC.RECOVSUP ---
Met with pt in 379 to provide recovery resources. Pt has no other questions or concerns at this time.
--- NOTE | 2023-03-26 10:39 | MHC.RECOVRN ---
In to make contact with pt with TAMEKA Aguila. Pt supine in bed, reports he was feeling nauseated but was provided medication with good effect. Reporting h/a that nurse gave him tylenol for. States he is feeling not good . No tremor or diaphoresis noted. Pt soft spoken in conversation with poor eye contact. Reports daily ETOH use of 10 nips, no beer, for approx the last 10 months. Has previously been sober for 2 years. States he has a prescription for naltrexone at home prescribed by his psych provider. Pt reports he has previously tried detox and was participated in IOP many years ago. Pt expressing desire to attend an IOP post d/c. Resources left at bedside.
[2023-03-26 10:43] LABS: Anion Gap 12 (12-20); Blood Urea Nitrogen 4 mg/dL (9-16); Calcium 8.7 mg/dL (8.4-10.2); Carbon Dioxide 29 mmol/L (22-29); Chloride 97 mmol/L (96-108); Creatinine Clr Calc Pharmacy 100.8; Estimated Glomerular Filt Rate > 60; Glucose Random 204 mg/dL (60-115); Sodium 134 mmol/L (135-145)
[2023-03-26 11:24] LABS: Glucose, Whole Blood 211 mg/dL (60-115)
[2023-03-26 11:39] VITALS: BMI 17.5
--- NOTE | 2023-03-26 11:52 | MHC.CLN ---
NUTRITION PATIENT HAS DX DM, TAKES INSULIN. DIET=REGULAR. LIBERALIZED TO PROMOTE PO INTAKE. ADDED ENSURE TID (1050 KCALS, 60 G PROTEIN). QUALIFIES MODERATELY MALNOURISHED WITH SIGNIFICANT WEIGHT LOSS X 6 MONTHS (-17.1%) AND ONE YEAR (-30%). SEE CLINICAL NUTRITION ASSESSMENT 03/26/23.
[2023-03-26] MEDS: Insulin Lispro 100 UNIT/ML 3 ML VIAL SUBCUT ×2 (12:46→16:29)
[2023-03-26 15:17] VITALS: BP 116/77; PULSE 71; RESP 20; TEMP 36.2; O2SAT 100
--- NOTE | 2023-03-26 15:32 | MHC.CM.PN ---
Addendum entered by Jennifer Alva 03/26/23 15:37: [facility] DECLINING REFERRAL NOW SENT TO [facility] Original Note: STR HAD BEEN RECOMMENDED, HOWEVER THERE WERE NO BED OFFERS AND PT WAS ONLY REQUIRING CONTACT GUARD FOR AMBULATION PT NOW STATING HE WOULD PREFER TO GO HOME. HE WILL NEED [facility] FOR HOME PT SERVICES HE WILL ALSO NEED [facility]UTTLE FOR TRANSPORT
[2023-03-26 16:24] LABS: Glucose, Whole Blood 180 mg/dL (60-115)
[2023-03-26] MEDS: hydrOXYzine HCL 25 MG TABLET PO (16:29)
[2023-03-26 19:14] VITALS: BP 111/72; PULSE 80; RESP 17; TEMP 36.4; O2SAT 100
[2023-03-26 20:20] LABS: Glucose, Whole Blood 72 mg/dL (60-115)
[2023-03-26 20:46] LABS: Glucose, Whole Blood 77 mg/dL (60-115)
[2023-03-26] MEDS: Dextrose 50 % 25 GM/50 ML SYRINGE IVPUSH (21:01)
[2023-03-26 21:32] LABS: Glucose, Whole Blood 257 mg/dL (60-115)
[2023-03-27] MEDS: 0.9 % Sodium Chloride Flush 3 ML SYRINGE IVFLUSH ×4 (00:12→21:32)
[2023-03-27 00:16] LABS: Glucose, Whole Blood 202 mg/dL (60-115)
[2023-03-27 03:12] VITALS: BP 113/77; PULSE 79; RESP 16; TEMP 36; O2SAT 99
[2023-03-27] MEDS: Acetaminophen 325 MG TABLET 650 MG PO ×3 (03:21→17:10)
[2023-03-27] MEDS: ondansetron HCL 4 MG/2 ML VIAL IVPUSH ×2 (03:30→12:27)
--- NOTE | 2023-03-27 04:48 | PC.NURSE ---
@20:20 pt poc 72 provided 120 mL orange juice. @2044 poc 77. notified tiger text me to give D50% PRN, and recheck at midnight. given by this nurse after 15 min. poc 257, rechecked at 00:[address] Sotelo notified and no further action. pt c/o about headache and nauseous provided PRN meds by MAR. will CONT monitor s/s and any changes.
[2023-03-27 07:18] VITALS: BP 112/83; PULSE 89; RESP 16; TEMP 36.5; O2SAT 100
[2023-03-27 07:27] LABS: Glucose, Whole Blood 277 mg/dL (60-115)
[2023-03-27] MEDS: Insulin Lispro 100 UNIT/ML 3 ML VIAL SUBCUT ×2 (08:08→12:25)
[2023-03-27] MEDS: lamoTRIgine 100 MG TABLET 200 MG PO ×2 (08:08→21:31)
[2023-03-27] MEDS: QUEtiapine Fumarate 200 MG TABLET PO ×2 (08:09→21:31)
[2023-03-27] MEDS: Thiamine HCL 100 MG TABLET PO (08:09)
[2023-03-27] MEDS: Multivitamin TABLET 1 TAB PO (08:09)
[2023-03-27] MEDS: Folic Acid 1 MG TABLET PO (08:09)
[2023-03-27] MEDS: Escitalopram Oxalate 20 MG TABLET PO (08:09)
[2023-03-27] MEDS: PHENobarbitaL 15 MG TABLET PO ×2 (08:09→08:11)
[2023-03-27] MEDS: Insulin Glargine,Hum.rec.anlog 100 UNIT/ML 10 ML VIAL 10 UNIT SUBCUT (08:34)
[2023-03-27 10:49] LABS: Anion Gap 13 (12-20); Blood Urea Nitrogen 4 mg/dL (9-16); Calcium 8.6 mg/dL (8.4-10.2); Carbon Dioxide 26 mmol/L (22-29); Chloride 99 mmol/L (96-108); Creatinine Clr Calc Pharmacy 102.2; Estimated Glomerular Filt Rate > 60; Glucose Random 197 mg/dL (60-115); Sodium 134 mmol/L (135-145)
[2023-03-27 10:50] LABS: Estimated Average Glucose 235 mg/dL; Hemoglobin A1c % 9.8 % (<6.0)
[2023-03-27 11:08] LABS: Glucose, Whole Blood 156 mg/dL (60-115)
--- NOTE | 2023-03-27 12:21 | MHC.CM.PN ---
Addendum entered by Nelida Silva 03/27/23 15:08: IMM DELIVERED. Original Note: CM MET WITH PT REGARDING STR, HE IS AGREEABLE BUT FEELS TOO SHAKY AND NAUSEOUS TO PARTICIPATE WITH P.T. CIWA SCORE 11. CM OFFERED SUPPORT AND WILL CONTINUE TO ENCOURAGE TO PARTICIPATE WHEN ABLE. REFERRALS UPDATED.NO BED OFFERS YET.
[2023-03-27] MEDS: Omeprazole 20 MG CAPSULE.DR PO ×2 (12:25→17:42)
--- NOTE | 2023-03-27 13:00 | P.PNIM_ITS ---
Subjective Subjective Date of Service: 03/27/23 Interval History: Seen and evaluated Feels better overall No more tremors or nausea Feels weak and deconditioned Review of Systems Review of Systems: Yes all other systems are reviewed and are negative Physical Exam Vital Signs: Vital Signs: Last Vital Signs Temp 97.7 F 03/27/23 07:18 Pulse 89 03/27/23 07:18 Resp 16 03/27/23 07:18 BP 112/83 03/27/23 07:18 Pulse Ox 100 03/27/23 07:18 O2 Del Method Room Air 03/27/23 07:18 BMI result Body Mass Index 17.5 Const: Other: Constitutional : Awake, interactive, not in distress Neck : Normal inspection, Supple Cardiovascular : RRR, no JVP, no lower extremity edema Respiratory : good bilateral air entry, no crackles, wheezes or rhonchi Gastrointestinal: soft, lax, Non tender Skin : Warm, Dry Neurological : Alert & oriented x3, No focal deficit Objective Data Active Medications Acetaminophen (Acetaminophen 325 Mg Tablet) 650 mg PO Q6H PRN PRN Reason: Pain, Mild (Pain Scale 1-3) Last Admin: 03/27/23 12:27 Dose: 650 mg Documented By: JOSSELYN Dextrose (Dextrose 50 % 25 Gm/50 Ml Syringe) 25 gm IVPUSH Q15M PRN; Protocol PRN Reason: per Hypoglycemia Standing Ord. Last Admin: 03/26/23 21:01 Dose: 25 gm Documented By: BETO Enoxaparin Sodium (Enoxaparin Sodium 40 Mg/0.4 Ml Syringe) 40 mg SUBCUT Q24H [facility] Last Admin: 03/27/23 01:03 Dose: Not Given Documented By: BETO Non-Admin Reason: Patient Refused Escitalopram Oxalate (Escitalopram Oxalate 20 Mg Tablet) 20 mg PO DAILY [facility] Last Admin: 03/27/23 08:09 Dose: 20 mg Documented By: JOSSELYN Folic Acid (Folic Acid 1 Mg Tablet) 1 mg PO DAILY [facility] Last Admin: 03/27/23 08:09 Dose: 1 mg Documented By: JOSSELYN Glucose (Glucose Gel 15 Gm Gel..Gram.) 15 gm PO Q15M PRN; Protocol PRN Reason: per Hypoglycemia Standing Ord. Last Admin: 03/25/23 07:21 Dose: 15 gm Documented By: PRADEEP Glucose (Glucose Gel 15 Gm Gel..Gram.) 15 gm PO DAILY PRN PRN Reason: Hypoglycemia Hydroxyzine HCl (Hydroxyzine Hcl 25 Mg Tablet) 25 mg PO Q6H PRN PRN Reason: Anxiety Last Admin: 03/26/23 16:29 Dose: 25 mg Documented By: JARET Insulin Glargine (Insulin Glargine,Hum.Rec.Anlog 100 Unit/Ml 10 Ml Vial) 10 unit SUBCUT DAILY [facility] Last Admin: 03/27/23 08:34 Dose: 10 unit Documented By: JOSSELYN Insulin Human Lispro (Insulin Lispro 100 Unit/Ml 3 Ml Vial) 0 unit SUBCUT QIDACHS [facility]; Protocol Last Admin: 03/27/23 12:25 Dose: 2 unit Documented By: JOSSELYN Lamotrigine (Lamotrigine 100 Mg Tablet) 200 mg PO BID [facility] Last Admin: 03/27/23 08:08 Dose: 200 mg Documented By: JOSSELYN Melatonin (Melatonin 3 Mg Tablet) 6 mg PO BEDTIME PRN PRN Reason: Insomnia Multivitamins/Vitamin C (Multivitamin Tablet) 1 tab PO DAILY [facility] Last Admin: 03/27/23 08:09 Dose: 1 tab Documented By: JOSSELYN Omeprazole (Omeprazole 20 Mg Capsule.) 20 mg PO BID@0630,1630 [facility] Last Admin: 03/27/23 12:25 Dose: 20 mg Documented By: JOSSELYN Ondansetron HCl (Ondansetron Hcl 4 Mg/2 Ml Vial) 4 mg IVPUSH Q8H PRN PRN Reason: Nausea and Vomiting Last Admin: 03/27/23 12:27 Dose: 4 mg Documented By: JOSSELYN Pharmacy Consult (Consult Rx Etoh Phenob Im/Po) 1 each MISCELLANE ONCE PRN; Protocol PRN Reason: Consult order Phenobarbital (Phenobarbital 15 Mg Tablet) 15 mg PO DAILY [facility] Stop: 03/29/23 09:01 Last Admin: 03/27/23 08:09 Dose: 15 mg Documented By: JOSSELYN Quetiapine Fumarate (Quetiapine Fumarate 400 Mg Tablet) 400 mg PO BEDTIME [facility] Quetiapine Fumarate (Quetiapine Fumarate 200 Mg Tablet) 200 mg PO BID [facility] Last Admin: 03/27/23 08:09 Dose: 200 mg Documented By: JOSSELYN Sodium Chloride (0.9 % Sodium Chloride Flush 3 Ml Syringe) 3 ml IVFLUSH QSHIFT [facility] Last Admin: 03/27/23 08:10 Dose: 3 ml Documented By: JOSSELYN Thiamine HCl (Thiamine Hcl 100 Mg Tablet) 100 mg PO DAILY [facility] Last Admin: 03/27/23 08:09 Dose: 100 mg Documented By: JOSSELYN Zolpidem Tartrate (Zolpidem Tartrate 5 Mg Tablet) 5 mg PO BEDTIME [facility] Labs 03/23/23 05:09 03/27/23 10:27 Labs: Laboratory Results - last 24 hr 03/26/23 03/26/23 03/26/23 16:17 20:16 20:43 Anion Gap Estim Creat Clear Calc Estimated GFR POC Glucose 180 H 72 77 Random Glucose Estimat Average Glucose Hemoglobin A1c % Calcium 03/26/23 03/27/23 03/27/23 21:28 00:11 07:21 Anion Gap Estim Creat Clear Calc Estimated GFR POC Glucose 257 H 202 H 277 H Random Glucose Estimat Average Glucose Hemoglobin A1c % Calcium 03/27/23 03/27/23 03/27/23 10:27 10:27 11:04 Anion Gap 13 Estim Creat Clear Calc 102.2 Estimated GFR > 60 POC Glucose 156 H Random Glucose 197 H Estimat Average Glucose 235 Hemoglobin A1c % 9.8 H Calcium 8.6 Assessment and Plan (1) Ataxia: Status: Acute (2) Alcoholic intoxication: Status: Acute (3) Alcohol use disorder: Status: Acute Plan This is a 42-year-old male with pertinent history of alcohol use disorder, mood disorder, type 1 diabetes mellitus who presents to the emergency department for concerns of alcohol withdrawal. # Alcohol use disorder high risk for withdrawal, on Phenobarbital, folic acid, and thiamine # Uncontrolled type 1 diabetes mellitus with hyperglycemia and hypoglycemia. HbA1c 9.8, was 9.7 last Sep. Restart Lantus 10 units continue SSI, monitor sugars closely Increase Lantus as tolerated as he is not drinking alcohol anymore # Mood disorder. Continue home mood stabilizers # Thrombocytopenia due to alcohol use disorder # weakness, ataxia related to alcohol use PT is recommeding STR, pending placement # Abdominal discomfort, n/v--check bmp to rule dka DVT prophylaxis: Lovenox Full code need for inpt: hypoglycemia, alcohol withdrawal pending safe discharge plan Time Spent With Patient Time: Total time managing care of this patient today ____ minutes. Quality Stroke Does the patient have a stroke diagnosis?: No VTE Prior VTE?: No VTE Risk Level:: Medical - moderate - high VTE Device Contraindication: Treatment Not Indicated VTE Drug Contraindication: N/A - Med Ordered
--- NOTE | 2023-03-27 14:10 | MHC.RECOVRN ---
This radio news writer met with patient, patient admitted for ETOH withdrawal. Pt was resting in dimlit room, slouched in bed. Pt reports not feeling well, pt states headache as most prevalent symptom. Pt agreeable to STR. Pt reports no questions/concerns about recovery supports.
[2023-03-27 15:38] VITALS: BP 124/88; PULSE 65; RESP 17; TEMP 35.7; O2SAT 100
[2023-03-27 16:26] LABS: Glucose, Whole Blood 52 mg/dL (60-115)
[2023-03-27] MEDS: Glucose Gel 15 GM GEL..GRAM. PO ×2 (16:28→17:39)
[2023-03-27 18:16] LABS: Glucose, Whole Blood 119 mg/dL (60-115)
[2023-03-27 19:21] VITALS: BP 130/70; PULSE 79; RESP 18; TEMP 36.8; O2SAT 100
[2023-03-27 20:23] LABS: Glucose, Whole Blood 148 mg/dL (60-115)
[2023-03-28 03:08] VITALS: BP 131/98; PULSE 86; RESP 18; TEMP 36.3; O2SAT 100
[2023-03-28] MEDS: Omeprazole 20 MG CAPSULE.DR PO (05:45)
[2023-03-28] MEDS: Acetaminophen 325 MG TABLET 650 MG PO (05:48)
[2023-03-28 07:10] VITALS: BP 130/98; PULSE 86; RESP 20; TEMP 36.4; O2SAT 99
[2023-03-28 08:09] LABS: Glucose, Whole Blood 446 mg/dL (60-115)
[2023-03-28] MEDS: Multivitamin TABLET 1 TAB PO (08:19)
[2023-03-28] MEDS: Folic Acid 1 MG TABLET PO (08:19)
[2023-03-28] MEDS: Escitalopram Oxalate 20 MG TABLET PO (08:19)
[2023-03-28] MEDS: PHENobarbitaL 15 MG TABLET PO (08:19)
[2023-03-28] MEDS: QUEtiapine Fumarate 200 MG TABLET PO (08:19)
[2023-03-28] MEDS: Thiamine HCL 100 MG TABLET PO (08:19)
[2023-03-28] MEDS: lamoTRIgine 100 MG TABLET 200 MG PO (08:19)
[2023-03-28] MEDS: 0.9 % Sodium Chloride Flush 3 ML SYRINGE IVFLUSH (08:21)
[2023-03-28] MEDS: Insulin Lispro 100 UNIT/ML 3 ML VIAL SUBCUT (08:43)
[2023-03-28] MEDS: Insulin Glargine,Hum.rec.anlog 100 UNIT/ML 10 ML VIAL SUBCUT (08:45)
[2023-03-28 11:29] LABS: Glucose, Whole Blood 32 mg/dL (60-115)
[2023-03-28] MEDS: Glucose Gel 15 GM GEL..GRAM. PO (11:31)
[2023-03-28 11:58] LABS: Glucose, Whole Blood 52 mg/dL (60-115)
[2023-03-28 12:41] LABS: Glucose, Whole Blood 121 mg/dL (60-115)
--- NOTE | 2023-03-28 13:23 | P.F2F_ITS ---
Service Date Service Date: 03/28/23 Encounter Date of encounter: 03/28/23 Reasons for Services Signs and symptoms assessed: Uncontrolled diabetes Physical deconditioning Reason for nursing home: monitoring of unstable blood sugar Reason for physical therapy: home safety and mobility and therapeutic exercises Homebound: Leaving the home is medically contraindicated at this time without the asist of a device and/or another person due th the listed conditions above and below. Reason homebound: unsteady gait / fall risk Certification: Based on the above findings, I certify that this patient is confined to the home and needs intermittent nursing home care, physical therapy and/or speech therapy, or continues to need occupational therapy. The patient is under my care, and I have initiated the establishment of the plan of care. The patient will be followed by a physician who will periodically review the plan of care. Time Spent With Patient Time: Total time managing care of this patient today ____ minutes.
--- NOTE | 2023-03-28 13:24 | PM.DS ---
DS: Providers Provider Date of Service: 03/28/23 Date of admission: 03/23/23 08:41 Primary care physician: Beena Melo MD Consults: 03/22/23 21:49 Consult to Care Team Stat Comment: Reason for consultation: detox 03/23/23 01:36 Addiction Medicine Routine Consulting Provider: Addiction Covering Reason for consultation: alcohol use disorder DS: Diagnosis Discharge Diagnosis (1) Ataxia: Status: Acute (2) Alcoholic intoxication: Status: Acute (3) Alcohol use disorder: Status: Acute (4) Hypoglycemia associated with diabetes: Status: Acute (5) Hyperglycemic crisis due to diabetes mellitus: Status: Acute DS: Summary Hospital Course Hospital Course: Chief Complaint: Alcohol withdrawal This is a 42-year-old male with pertinent history of alcohol use disorder, mood disorder, type 1 diabetes mellitus who presents to the emergency department for concerns of alcohol withdrawal.? Patient states he drinks rum every day and his last drink was on the day of presentation.? He was brought by EMS as his mother was concerned by his behavior.? Patient states he does have a history of alcohol withdrawal seizures and DTs.? Patient states he has been getting nauseous, tremulous and sweaty since his last drink.? Denies fever, chills, chest discomfort, palpitations, shortness of breath, abdominal pain, changes in urinary or bowel habits.? Patient states he is seeking detox In the emergency department, CIWA was found to be elevated and patient was initiated on phenobarb protocol Hospital course: He presented with alcohol intoxication and admitted for alcohol withdrawal, hyperglycemia and while hospital had an episodes of hypoglycemia with sugar of 10, 50s which corrected with D50, for impending alcohol withdrawal he was treated with Phenobarbital, he presently does not have any reyna symptoms of alcohol withdrawal, he has been advised to stay away from alcohol permanently. PRovided with Folic acid and Thiamin at time of discharge. Cut down Lantus to 10 units only for now given he is stopping alcohol. HbA1c of 9.7 which is similar to reading from Sep 28. Seen by PT for Ataxia who recommended STR but patient prefers to go home with [facility]NA. Cut down Lantus to 10 units, monitor blood sugar at home for 1 week Start Omeprazole, Thiamin and Folic acid Time Spent with Patient Time attestation: Total time managing care of this patient today ____ minutes. Discharge coordination time: Greater than 30 minutes Quality: Safe Use of Opioids Does Pt have an Active Cancer Diagnosis on the Problem List?: No Quality: Stroke Does the patient have a stroke diagnosis?: No Physical Exam Vital Signs: Vital Signs: Last Vital Signs Temp 97.5 F 03/28/23 07:10 Pulse 86 03/28/23 07:10 Resp 20 03/28/23 07:10 BP 130/98 H 03/28/23 07:10 Pulse Ox 99 03/28/23 07:10 O2 Del Method Room Air 03/28/23 07:10 BMI result Body Mass Index 17.5 Const: Other: Constitutional : Awake, interactive, not in distress Neck : Normal inspection, Supple Cardiovascular : RRR, no JVP, no lower extremity edema Respiratory : good bilateral air entry, no crackles, wheezes or rhonchi Gastrointestinal: soft, lax, Non tender Skin : Warm, Dry Neurological : Alert & oriented x3, No focal deficit, wide based gait DS: Data Data Completed and Pending Completed studies during hospitalization [Text1]: Procedures Detoxification Services for Substance Abuse Treatment (01/08/23) Insertion of Endotracheal Airway into Trachea, Via Natural or Artificial Opening (01/27/22) Insertion of Infusion Device into Superior Vena Cava, Percutaneous Approach (05/21/22) Repair Scalp Skin, External Approach (09/26/22) Respiratory Ventilation, Less than 24 Consecutive Hours (01/27/22) Ultrasonography of Superior Vena Cava, Guidance (05/21/22) Labs on day of discharge: Laboratory Results - last 24 hr 03/27/23 03/27/23 03/27/23 16:22 18:10 20:19 POC Glucose 52 L* 119 H 148 H 03/28/23 03/28/23 03/28/23 08:06 11:25 11:52 POC Glucose 446 H* 32 L* 52 L* 03/28/23 12:36 POC Glucose 121 H Imaging Chest x-ray: Radiologist's impression: ITS Impressions Head CT 03/22/23 23:40 IMPRESSION: No acute intracranial pathology. Discharge Plan Discharge Anticipated Discharge Date/Time: 03/24/23 08:26 Patient Disposition: Home Health Service Discharge Diagnosis: Alcohol withdrawal, hyperglycemia Referrals: Physician,Unknown J [Physician] - 1 Week Discharge Medications: New omeprazole 20 mg Capsule,Delayed Release(Dr/Ec) 20 mg PO DAILY@0730 Qty: 30 0RF thiamine mononitrate (vit B1) 100 mg Tablet 100 mg PO DAILY Qty: 30 0RF folic acid 1 mg Tablet 1 mg PO DAILY Qty: 30 0RF Continued (DME) lancets [TRUEplus Lancets] 33 gauge misc See Rx Instructions .Route Qty: 200 11RF Rx Instructions: Four times a day (DME) pen needle, diabetic [BD July 2nd Gen Pen Needle] 32 gauge x 5/32 needle See Rx Instructions .MEDSUPPLY Qty: 150 4RF Rx Instructions: 5 times a day (DME) FreeStyle Lite Strips Strip See Rx Instructions .Route Qty: 150 11RF Rx Instructions: Four times a day quetiapine 400 mg tablet 1 tab PO BEDTIME quetiapine 400 mg Tablet Extended Release 24 Hr 400 mg PO DAILY@0900 multivitamin [Daily Multi-Vitamin] Tablet 1 tab PO DAILY lamotrigine 200 mg tablet 200 mg PO BID zolpidem 5 mg tablet 1 tab PO BEDTIME dextrose [Glutose-15] 40 % gel 1 ea PO DAILY PRN (Reason: Hypoglycemia) citalopram 40 mg tablet 40 mg PO DAILY thiamine HCl (vitamin B1) 100 mg tablet 100 mg PO DAILY folic acid 1 mg tablet 1 mg PO DAILY Changed insulin glargine [Lantus Solostar U-100 Insulin] 100 unit/mL (3 mL) insulin pen 10 unit subcut BEDTIME Qty: 15 0RF Discharge Orders: Discharge Order (Routine); Ordered 03/28/23 Ordered By: Gisela Canas Diet: Diabetic diet Activity on Discharge: As tolerated Stand Alone Forms: Patient Portal Discharge page Care Plan Goals: Abstinence from alcohol Health Concerns: alcohol depedence Plan of Treatment: avoid alcohol, attend AA resources resume your medication as before Assessment: Cut down Lantus to 10 units, monitor blood sugar at home for 1 week Start Omeprazole, Thiamin and Folic acid
--- NOTE | 2023-03-28 15:33 | MHC.CM.PN ---
IMM03/27/23 Male discharged to home today with [facility]. All discharge info has been sent to the facility. A LYFT has been arranged for transport home.
[2023-03-28] MEDS: ondansetron HCL 4 MG/2 ML VIAL IVPUSH (16:06)
== END 2023-03-28 16:45 | disposition home health service (06) | DRG 638 ==
LOC: HO.ED 21:18 → HO.EDOVER 03-23 01:40 → HO.S3 03-23 15:45
PROVIDERS: Internal Medicine; Admitting Provider Student in an Organized Health Care Education/Training Program; Emergency Provider Internal Medicine; PCP Internal Medicine; Visit Provider Student in an Organized Health Care Education/Training Program
DX: E10.649 Type 1 diabetes mellitus with hypoglycemia without coma (principal); E44.0 Moderate protein-calorie malnutrition; F10.239 Alcohol dependence with withdrawal, unspecified; Z68.1 Body mass index [BMI] 19.9 or less, adult; F31.9 Bipolar disorder, unspecified; D69.59 Other secondary thrombocytopenia; E10.65 Type 1 diabetes mellitus with hyperglycemia; Y90.8 Blood alcohol level of 240 mg/100 ml or more; F10.229 Alcohol dependence with intoxication, unspecified; Z91.148 Patient's other noncompliance with medication regimen for other reason; Z79.899 Other long term (current) drug therapy
CPT/HCPCS: 36415; 70450; 80048; 80053; 80307; 81001; 81003; 82010; 82550; 82803; 82947; 83036; 84484; 85025; 85027; 93005; 97162; 99285; J1650; J2060; J2405; J2550; J2560; J2765; J3411

== ENCOUNTER → 2023-03-23 01:36 | Outpatient (BNV) | payer OTHER, SELFPAY | PROVIDERS: Admitting Provider Student in an Organized Health Care Education/Training Program; Emergency Provider Internal Medicine; Visit Provider Student in an Organized Health Care Education/Training Program | DX: R27.0 Ataxia, unspecified (principal); F10.929 Alcohol use, unspecified with intoxication, unspecified; E11.649 Type 2 diabetes mellitus with hypoglycemia without coma; E11.65 Type 2 diabetes mellitus with hyperglycemia | CPT/HCPCS: 99222; 99232; 99239; 99499; G0180 ==

== ENCOUNTER 2023-05-05 14:50 | Inpatient (IN) | payer OTHER, SELFPAY ==
[2023-05-05] VITALS (23 sets, daily range): BP systolic 62–120; BP diastolic 38–85; PULSE 63–95; RESP 8–33; TEMP 29.2–35; O2SAT 71–100; BMI 19.7
--- NOTE | ~2023-05-05 | CT_ITS ---
Examination: CT chest, abdomen and pelvis without IV contrast. CLINICAL INDICATION: Fall and unresponsive. COMPARISON: Chest x-ray performed earlier at 3:09 PM. TECHNIQUE: 5 mm thin axial and reformatted 3 mm thin sagittal and coronal images of chest, abdomen and pelvis were obtained without contrast. DLP [id number]. This CT examination was performed using dose optimization technique as appropriate, variously including the following: Automated exposure control Adjustment of MA and/or KV according to patient size(this includes techniques or standardized protocols for targeted exams where dose is matched to indication/reason for exam; extremities or head. Use of iterative reconstruction techniques. FINDINGS:. CHEST: LUNGS: The lungs are expanded with patchy consolidation seen throughout both upper lobes, lower lobes. There is a large left lower lobe consolidation with air bronchogram. Mediastinum: There are lobes are symmetric and normal. The central trachea and the bronchi are widely patent. There is an endotracheal tube with its tip 3.3 cm above the juan. Heart size and the great vessels are normal caliber. There are small reactive pretracheal lymph nodes. No pericardial effusion seen. Pleura: There or small bilateral pleural effusions. No evidence of pneumothorax. Axilla: No abnormal size lymph nodes seen. The chest wall appears unremarkable. Osseous structures: The bony thorax is unremarkable with no visible rib fractures seen. ABDOMEN AND PELVIS: Liver, ducts and gallbladder: The liver is normal size and hepatic contour with diffuse attenuation of liver. No focal lesion or intrahepatic ductal dilatation seen. The gallbladder is unremarkable. Spleen: Unremarkable. Pancreas: The pancreas is small size with diffuse calcification throughout the pancreas. The peripancreatic fat planes are hazy but no peripancreatic fluid collection seen. Adrenal glands: Unremarkable. Kidneys: Both kidneys are normal size, shape and position. There are punctate radiopaque calculi in both kidneys without any caliectasis or hydronephrosis. Lymphovascular structures: Abdominal aorta is normal caliber. No recurrent lymph nodes, mass or hematoma seen. Abdominal wall: Unremarkable.. GI tract: There is scattered moderate stool seen throughout the entire colon. There is nonspecific mural thickening involving proximal and distal sigmoid colon but no pericolic fat stranding seen. Pelvis: There is a Philippe's catheter in the nondistended bladder. There is no free fluid. No abnormal pelvic or inguinal lymph nodes. No hernia. Osseous structures portal no evidence of aggressive lytic or sclerotic process. No fracture or dislocation seen. CT/CT abdomen pelvis wo IV con IMPRESSION: Multilobar bilateral infiltrates predominantly in the upper and lower lobes with large consolidation in left lower lobe. There are small bilateral pleural effusions or thickening. Diffuse fatty infiltration of liver without focal lesion. Moderate constipation. Nonspecific mild mural thickening of proximal and distal sigmoid colon but no pericolic fat stranding. Bilateral nonobstructive renal calculi
--- NOTE | ~2023-05-05 | XR_ITS ---
EXAMINATION: XR ABDOMEN KUB CLINICAL INDICATION: OG tube placement COMPARISON: 05/05/2023 TECHNIQUE: AP view of the abdomen. FINDINGS: Enteric tube courses into the stomach. Redemonstrated gaseous distention of segments of small and large bowel in the upper abdomen along with moderate volume of stool. Redemonstrated bibasilar airspace opacities. No acute osseous findings are seen. XR/XR KUB IMPRESSION: Enteric tube courses into the stomach.
--- NOTE | ~2023-05-05 | CT_ITS ---
EXAMINATION: CT brain and CT cervical spine without contrast. CLINICAL INDICATIONS: Unresponsive COMPARISON: CT brain 03/22/2023. TECHNIQUE: 5 mm thin axial and reformatted 2 mm thin sagittal and coronal images of brain were obtained. Subsequently axial 3 mm thin and reformatted 2 mm thin sagittal and coronal images of cervical spine were obtained. DLP 1169. This CT examination was performed using dose optimization technique as appropriate, variously including the following: Automated exposure control Adjustment of MA and/or KV according to patient size(this includes techniques or standardized protocols for targeted exams where dose is matched to indication/reason for exam; extremities or head. Use of iterative reconstruction techniques. FINDINGS: Brain: There is left parietal scalp contusion/soft tissue edema without calvarial fracture. There is extensive soft tissue calcification seen in the scalp. There is no acute intra-axial, extra-axial bleed, masses, collection or midline shift. There is no acute infarction evolution. There is no edema no abnormality seen in the posterior fossa the lateral ventricles are symmetrical in size and configuration but mildly enlarged. Bilateral paranasal sinuses and mastoid air cells are well-aerated. Visualized bony orbits, TM joints are normal. There is endotracheal tube noted within the oral cavity. Cervical spine: There is normal cervical lordosis. The vertebral heights, alignment and disc heights are normal. No visible acute fracture, dislocation or subluxation seen. The craniovertebral junction and the C1-C2 alignment is normal. The prevertebral and paravertebral soft tissues are normal. CT/CT cervical spine wo IV con IMPRESSION: 1. Left parietal scalp contusion/soft tissue edema without calvarial fracture. 2. No acute intracranial abnormality. 3. There is no acute fracture, dislocation or subluxation seen.
--- NOTE | ~2023-05-05 | XR_ITS ---
EXAMINATION: XR CHEST CLINICAL INFORMATION: Low oxygenation COMPARISON: 05/16/2023 TECHNIQUE: Frontal view of the chest was obtained. FINDINGS: Position of endotracheal tube is satisfactory with the tip 6.2 cm above the juan. Nasogastric tube is coiled in the stomach. Lungs are low volume with bibasilar atelectasis. There is possible right lower lobe infiltrate. Cardiomediastinal silhouette is normal. XR/XR chest 1V IMPRESSION: Well-positioned endotracheal tube and nasogastric tube. Bibasilar atelectasis and possible right lower lobe infiltrate.
--- NOTE | ~2023-05-05 | XR_ITS ---
EXAMINATION: XR CHEST CLINICAL INFORMATION: Unresponsive COMPARISON: None available. TECHNIQUE: Frontal view of the chest was obtained. FINDINGS: The lungs are well-expanded and clear. With patchy opacity seen in both lungs likely infiltrates. Heart size and pulmonary vascularity is normal. There is endotracheal tube with its tip approximately 7.5 cm above the juan and needs to be advanced at least by couple of 2-3 cm. No gross bony abnormality seen. XR/XR chest 1V IMPRESSION: Bilateral patchy ill-defined infiltrates. Advanced endotracheal tube back 2 to 3 cm
--- NOTE | ~2023-05-05 | US_ITS ---
EXAMINATION: US ABDOMEN LIMITED CLINICAL INFORMATION: Worsening LFTs. COMPARISON: CT abdomen 05/05/2023 TECHNIQUE: Real-time imaging of the right upper quadrant abdominal viscera. FINDINGS: PANCREAS: Normal. LIVER: Liver normal in size but increased in echotexture possibly related to steatosis. No focal mass. There is no intrahepatic biliary dilatation. GALLBLADDER: Incompletely evaluated since the gallbladder is very contracted. There may be trace fluid around the gallbladder. Repeating the study after fasting may be helpful. I do not see any discrete gallstones or areas of sludge formation. COMMON BILE DUCT: Normal in caliber measuring 0.4 cm in diameter. RIGHT KIDNEY: Normal. No hydronephrosis. No renal calculi or focal parenchymal lesions. The kidney measures 10.4 cm in maximum dimension. FREE FLUID: Trace ascites adjacent to the liver and superior to the bladder. US/US abdomen limited IMPRESSION: Echogenic liver. Small amount of ascites. Incomplete evaluation of the gallbladder due to state of contraction.
--- NOTE | 2023-05-05 15:04 | ECG_ITS ---
Test Reason : UNRESPONSIVE Blood Pressure : / mmHG Vent. Rate : 073 BPM Atrial Rate : 073 BPM P-R Int : 148 ms QRS Dur : 076 ms QT Int : 482 ms P-R-T Axes : 056 076 080 degrees QTc Int : 531 ms Normal sinus rhythm Nonspecific ST abnormality Abnormal ECG When compared with ECG of 22-MAR-2023 20:00, ST more elevated in Inferior leads Nonspecific T wave abnormality now evident in Lateral leads QT has lengthened Referred By: Kyle Purcell Electronically Signed By:XUAN PACK
--- NOTE | 2023-05-05 15:07 | ED_ITS ---
HPI - Altered Mental Status General Chief Complaint: Altered Mental Status Stated Complaint: UNRESPONSIVE Time Seen by Provider: 05/05/23 15:08 Source: EMS and old records reviewed Mode of arrival: EMS Limitations: no limitations History of Present Illness HPI narrative: 42-year-old male with pertinent history of alcohol use disorder, mood disorder, type 1 DM found by his family unresponsive at his home. Patient emergency department was hypothermic, hypovolemic, unresponsive, pale, patient was intubated for airway protection. As per EMS patient last was seen by his family 5 days ago. Related Data Home Medications Medication Instructions Recorded Confirmed lamotrigine 200 mg tablet 200 mg PO BID 01/28/22 03/23/23 citalopram 40 mg tablet 40 mg PO DAILY 02/08/22 03/23/23 folic acid 1 mg tablet 1 mg PO DAILY 02/08/22 03/23/23 thiamine HCl (vitamin B1) 100 mg 100 mg PO DAILY 02/08/22 03/23/23 tablet zolpidem 5 mg tablet 1 tab PO BEDTIME 03/14/22 03/23/23 quetiapine 400 mg tablet 1 tab PO BEDTIME 06/12/22 03/23/23 multivitamin (Daily Multi-Vitamin 1 tab PO DAILY 09/26/22 03/23/23 tablet) quetiapine 400 mg tablet,extended 400 mg PO DAILY@0900 09/26/22 03/23/23 release 24 hr dextrose 40 % oral gel (Glutose-15) 1 ea PO DAILY PRN Hypoglycemia 03/23/23 03/23/23 Previous Rx's Medication Instructions Recorded lancets 33 gauge (TRUEplus Lancets) #200 ea 03/08/21 pen needle, diabetic 32 gauge x #150 ea 02/07/22/32 (BD July 2nd Gen Pen Needle) blood sugar diagnostic (FreeStyle #150 ea 03/20/22 Lite Strips) folic acid 1 mg tablet 1 mg PO DAILY #30 tabs 03/28/23 insulin glargine 100 unit/mL (3 10 unit (0.1 mL) subcut BEDTIME 03/28/23 mL) subcutaneous pen (Lantus #15 mL Solostar U-100 Insulin) omeprazole 20 mg capsule,delayed 20 mg PO DAILY@0730 #30 caps 03/28/23 release thiamine mononitrate (vit B1) 100 100 mg PO DAILY #30 tabs 03/28/23 mg tablet Allergies Allergy/AdvReac Type Severity Reaction Status Date / Time meropenem [MEROPENEM] Allergy Unknown SWELLING Verified 09/25/22 22:45 penicillin G procaine Allergy Unknown itching Verified 09/25/22 22:45 Penicillins [PENICILLINS] Allergy Unknown SWELLING Verified 09/25/22 22:45 Review of Systems 2 Review of Systems: All other systems are reviewed and are negative Constitutional: Reports as per HPI and Reports no additional constitutional complaints Eyes: Reports as per HPI and Reports no additional eye complaints Reports system reviewed and no additional complaints, except as documented Cardiovascular: Reports as per HPI and Reports no additional cardiovascular complaints Respiratory: Reports as per HPI and Reports no additional respiratory complaints Gastrointestinal: Reports as per HPI and Reports no additional gastrointestinal complaints Genitourinary: Reports no additional female genitourinary complaints Musculoskeletal: Reports no additional musculoskeletal complaints Skin/Breast: Reports system reviewed and no additional complaints, except as docu Psychiatric: Reports no additional psychiatric complaints Endocrine: Reports no additional endocrine complaints Hematologic/Lymphatic: Reports no additional hematologic/lymphatic complaints Allergic/Immunologic: Reports no additional allergic/immunologic complaints Reports system reviewed and no additional complaints, except as documented and Reports Abnormal speech present [facility] Past Medical History Medical History Ataxia Depression Diabetes type 2, controlled Type 1 diabetes ETOH abuse Alcohol use disorder Bacteremia Osteoarthritis Bipolar disorder History of acute pancreatitis Diabetic nephropathy jail (current) use of insulin 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 Mother Diabetes Social History Social History Household Members: None Household Members Other:: with dog Housing: Apartment Do you presently have visiting nurse or other home services: No Alcohol intake: current Alcohol intake frequency: 3 or more drinks per day Alcohol type: hard liquor Patient Tobacco Use Status: Never used Tobacco e-Cigarette/Vaping Use: Never Used Second Hand Smoke Exposure: No Advance Directives: Yes Advance Directives on File: Yes Advance Directives Date on File: 02/07/22 service: No Current occupational status: unemployed Physical Exam ED Vital Signs: Vital Signs - 24 hr 05/05/23 14:48 05/05/23 14:52 05/05/23 14:58 Temperature 84.6 F L Pulse Rate 65 87 86 Respiratory Rate 10 L 8 L 26 H Blood Pressure 97/58 L 85/63 L 85/63 L Pulse Oximetry 94 71 L Oxygen Delivery Method Mechanical Ventilation Room Air Fraction of Inspired Oxygen 05/05/23 15:06 05/05/23 15:28 05/05/23 15:35 Temperature 87.1 F L 88.0 F L Pulse Rate 78 73 Respiratory Rate 18 12 Blood Pressure 94/69 81/57 L Pulse Oximetry 90 L 97 Oxygen Delivery Method Mechanical Ventilation Mechanical Ventilation Fraction of Inspired Oxygen 80 05/05/23 15:50 05/05/23 16:08 05/05/23 17:10 Temperature 87.4 F L 87.4 F L Pulse Rate 73 74 63 Respiratory Rate 18 12 Blood Pressure 87/60 L 75/51 L 63/38 L Pulse Oximetry 100 100 Oxygen Delivery Method Mechanical Ventilation Mechanical Ventilation Fraction of Inspired Oxygen BMI result Body Mass Index 19.7 Vital signs have been reviewed and appear to be correct. Blood pressure elevated. Heart rate normal. Respiratory rate normal. Hypothermia, Oxygen saturation normal. Appearance: Unresponsive. No acute distress. Head: Normal external exam. Normocephalic. Atraumatic. No Valente signs noted. No raccoon eyes noted Eyes: PERRLA. EOMI. Conjunctiva and sclera normal. Eyelids normal. ENT: TM's Normal. Pharynx normal. Uvula midline. Moist mucous membranes. No trismus noted. No drooling noted. No muffled voice noted. Neck: Normal inspection. Neck supple. FROM. No adenopathy. Thyroid Normal. No meningeal signs. No neck mass noted. CVS: Normal heart rate and rhythm. Heart sound normal. No murmurs noted. Pulses normal throughout. Respiratory: No respiratory distress. Painless inspiration. Breath sounds normal. No wheezes/rales/rhonchi noted. Chest nontender. No accessory muscle usage noted or decreased air movement noted. Abdomen: Soft and nontender. Bowel sounds normal in all 4 quadrants. No distention noted. No organomegaly noted. No visible injury noted. Back: No CVA tenderness. A pressure lividity in the upper thoracic area and on the lumbar area with no ulceration. Skin: Skin warm and dry. Normal skin color. Normal skin turgor. No rashes/lesions/lacerations noted. Extremities: No lower extremity edema. Extremities exhibit normal range of motion. Extremities nontender. Neuro: Unresponsive Cranial nerve exam: II-XII are grossly intact No motor deficit. No sensory deficit. Reflexes normal. Course Course Course Narrative: 42-year-old male with history of alcohol abuse found at his apartment unresponsive patient last was seen 5 days ago by his family, patient in the emergency room is unresponsive, hypotensive, hypothermic, with a pneumonia. Patient received 30 cc/kg of normal saline with no improvement of blood pressure will start the patient on Levophed, patient has a central line and right femoral vein, case discussed with Dr. Glendy Ramirez to admit the patient to ICU requesting head/C-spine/chest/abdomen CT. Case signed out to Dr. Gamino. Reevaluation(s) Reevaluation #1: 42-year-old male unresponsive with pneumonia hypothermia in septic shock patient received 30 cc/kg of normal saline with no improvement of the blood pressure will start the patient on Levophed patient has right femoral central triple- lumen. Time: 17:00 Medications Administered Generic Name Dose Route Start Last Admin Trade Name Freq PRN Reason Stop Dose Admin Sodium Chloride 1,869 mls @ 1,869 mls/hr 05/05/23 16:24 05/05/23 17:13 Ns 30 ml/kg infuse over 1 hr (1869 ml) 05/05/23 17:23 1,869 mls/hr IV Administration .Q1H STA Norepinephrine Bitartrate 8 mg in 250 mls @ 0 mls/hr 05/05/23 17:00 05/05/23 17:10 Levophed IV 0.05 mcg/kg/min .Q0M MAINOR 5.84 mls/hr Administration Protocol Per Protocol Propofol 1,000 mg in 100 mls @ 0 mls/hr 05/05/23 17:00 05/05/23 15:15 Diprivan IVCONT 30 mcg/kg/min .Q0M MAINOR 11.21 mls/hr Administration Protocol Per Protocol Discontinued Medications Generic Name Dose Route Start Last Admin Trade Name Freq PRN Reason Stop Dose Admin Etomidate 20 mg 05/05/23 15:05 05/05/23 15:25 Etomidate 20 Mg/10 Ml Vial IVPUSH 05/05/23 15:06 20 mg ONCE ONE Administration Sodium Chloride 1,000 mls @ 999 mls/hr 05/05/23 15:04 05/05/23 15:24 Ns IV 05/05/23 16:04 999 mls/hr .Q1H1M ONE Administration Ceftriaxone Sodium 1 gm/ 50 mls @ 100 mls/hr 05/05/23 15:14 05/05/23 17:14 Sodium Chloride IV 05/05/23 15:43 100 mls/hr ONCE ONE Administration Succinylcholine Chloride 100 mg 05/05/23 15:04 05/05/23 15:25 Succinylcholine Chloride 200 Mg/10 Ml Vial IVPUSH 05/05/23 15:05 100 mg ONCE ONE Administration Medical Decision Making Differential Diagnosis Differential Diagnoses: The differential diagnosis associated with the presentation includes (Intracranial bleed, intrathoracic pathology, intra- abdominal pathology, electrolyte abnormality, septic shock, pneumonia, UTI, rhabdomyolysis.) Admission/Observation Consideration of admission/observation: Escalation of care including admission/observation considered Consult Healthcare Provider Management of the patient was discussed with: Projection Welding Machine Operator (Dr. Glendy Ramirez) Lab Data MDM Lab Attestation statement: I reviewed the patient's lab results. 05/05/23 15:09 05/05/23 15:09 Labs: Lab Results 05/05/23 05/05/23 05/05/23 Range/Units 15:09 15:22 15:28 WBC 0.8 L* (4.8-10.8) X10*3/uL RBC 3.41 L (4.60-5.80) X10*6/uL Hgb 11.3 L (14.0-18.0) g/dl Hct 31.9 L (42.0-52.0) % MCV 93.5 (80.0-98.0) fL MCH 33.1 H (27.0-33.0) pg MCHC 35.4 (31.0-36.0) g/dl RDW 13.6 (11.0-16.0) % Plt Count 34 L D (160-400) X10*3/uL MPV 13.2 H (9.4-12.4) fL Immature Gran % (Auto) Cancelled Neut % (Auto) Cancelled Lymph % (Auto) Cancelled [place] % (Auto) Cancelled Eos % (Auto) Cancelled Baso % (Auto) Cancelled Lymph # (Auto) Cancelled [place] # (Auto) Cancelled Eos # (Auto) Cancelled Baso # (Auto) Cancelled Abs Immat Gran (auto) Cancelled Absolute Neuts (auto) Cancelled Absolute Nucleated RBC 0.000 (0.0-0.012) X10*3/uL Nucleated RBC % (auto) 0.0 (0.0-0.2) /100WBC Neutrophils % (Manual) 58 (45-73) % Band Neutrophils % 9 H (3-5) % Lymphocytes % (Manual) 30 (20-40) % Monocytes % (Manual) 3 (2-11) % Abs Neuts (Manual) 0.5 L (2.0-8.3) X10*3/uL Lymphocytes # (Manual) 0.2 L (1.2-4.9) X10*3/uL Platelet Estimate DECREASED (NORMAL) Large Platelets PRESENT Giant Platelets PRESENT Plt Morphology Comment NOTED RBC Morphology NORMAL Luis Cells 2+ (3-5) /OIF Sodium 143 (135-145) mmol/L Potassium 3.6 (3.3-5.1) mmol/L Chloride 103 (96-108) mmol/L Carbon Dioxide 17 L (22-29) mmol/L Anion Gap 27 H (12-20) BUN 18 H (9-16) mg/dL Creatinine 0.64 (0.5-1.4) mg/dL Estim Creat Clear Calc 131.1 Estimated GFR > 60 Random Glucose 78 (60-115) mg/dL Lactic Acid 4.2 H* (0.5-2.0) mmol/L Calcium 8.3 L (8.4-10.2) mg/dL Total Bilirubin 4.0 H (0.0-1.0) mg/dL Direct Bilirubin 2.8 H (0.0-0.5) mg/dL AST 286 H (5-37) U/L ALT 64 H (0-40) U/L Alkaline Phosphatase 268 H (39-117) U/L Troponin I High Sens < 2.7 (<3.5-35.0) ng/L B-Natriuretic Peptide 85 (<100) pg/mL Total Protein 5.3 L (6.5-8.0) g/dL Albumin 2.5 L (3.5-5.0) g/dL Lipase < 4 L (8-78) U/L Urine Color Dark Yellow Urine Appearance Clear Urine pH 6.0 (5.0-9.0) Ur Specific [place] 1.020 (1.005-1.025) Urine Protein 100 (2+) H (Neg-Trace) mg/dL Urine Glucose (UA) Negative (Negative) mg/dL Urine Ketones 15 (Negative) mg/dL Urine Blood Large (3+) H (Negative) Urine Nitrite Negative (Negative) Ur Leukocyte Esterase Trace H (Negative) Urine RBC 11-20 H (0-2) /HPF Urine WBC 0-5 (0-5) /HPF Ur Squamous Epith Cells 0-2 (0-2) /HPF Urine Bacteria None Seen (None Seen) Hyaline Casts 6-10 (0-2) /LPF Salicylates (15-30) mg/dL Acetaminophen (<30) mcg/mL Ethyl Alcohol < 10 mg/dL Influenza Type A (PCR) NEGATIVE (Negative) Influenza Type B (PCR) NEGATIVE (Negative) RSV RNA Qual (PCR) NEGATIVE (Negative) SARS-CoV-2 RNA (RT-PCR) NEGATIVE (Negative) 05/05/23 Range/Units 16:20 WBC (4.8-10.8) X10*3/uL RBC (4.60-5.80) X10*6/uL Hgb (14.0-18.0) g/dl Hct (42.0-52.0) % MCV (80.0-98.0) fL MCH (27.0-33.0) pg MCHC (31.0-36.0) g/dl RDW (11.0-16.0) % Plt Count (160-400) X10*3/uL MPV (9.4-12.4) fL Immature Gran % (Auto) Neut % (Auto) Lymph % (Auto) [place] % (Auto) Eos % (Auto) Baso % (Auto) Lymph # (Auto) [place] # (Auto) Eos # (Auto) Baso # (Auto) Abs Immat Gran (auto) Absolute Neuts (auto) Absolute Nucleated RBC (0.0-0.012) X10*3/uL Nucleated RBC % (auto) (0.0-0.2) /100WBC Neutrophils % (Manual) (45-73) % Band Neutrophils % (3-5) % Lymphocytes % (Manual) (20-40) % Monocytes % (Manual) (2-11) % Abs Neuts (Manual) (2.0-8.3) X10*3/uL Lymphocytes # (Manual) (1.2-4.9) X10*3/uL Platelet Estimate (NORMAL) Large Platelets Giant Platelets Plt Morphology Comment RBC Morphology [place] Cells /OIF Sodium (135-145) mmol/L Potassium (3.3-5.1) mmol/L Chloride (96-108) mmol/L Carbon Dioxide (22-29) mmol/L Anion Gap (12-20) BUN (9-16) mg/dL Creatinine (0.5-1.4) mg/dL Estim Creat Clear Calc Estimated GFR Random Glucose (60-115) mg/dL Lactic Acid (0.5-2.0) mmol/L Calcium (8.4-10.2) mg/dL Total Bilirubin (0.0-1.0) mg/dL Direct Bilirubin (0.0-0.5) mg/dL AST (5-37) U/L ALT (0-40) U/L Alkaline Phosphatase (39-117) U/L Troponin I High Sens (<3.5-35.0) ng/L B-Natriuretic Peptide (<100) pg/mL Total Protein (6.5-8.0) g/dL Albumin (3.5-5.0) g/dL Lipase (8-78) U/L Urine Color Urine Appearance Urine pH (5.0-9.0) Ur Specific [place] (1.005-1.025) Urine Protein (Neg-Trace) mg/dL Urine Glucose (UA) (Negative) mg/dL Urine Ketones (Negative) mg/dL Urine Blood (Negative) Urine Nitrite (Negative) Ur Leukocyte Esterase (Negative) Urine RBC (0-2) /HPF Urine WBC (0-5) /HPF Ur Squamous Epith Cells (0-2) /HPF Urine Bacteria (None Seen) Hyaline Casts (0-2) /LPF Salicylates < 5.0 L (15-30) mg/dL Acetaminophen < 17 (<30) mcg/mL Ethyl Alcohol mg/dL Influenza Type A (PCR) (Negative) Influenza Type B (PCR) (Negative) RSV RNA Qual (PCR) (Negative) SARS-CoV-2 RNA (RT-PCR) (Negative) Independent Interpretation I performed an independent interpretation of an: CT Scan (Pending head/C- spine/chest/abdomen.) Procedures Central Line Placement Right Femoral: Time Out Performed: Yes Patient Placed on Monitor/Pulse Ox: Yes MD Prep: mask, gown and gloves Central Line Prep: Povidone-Iodine 1% Local Anesthetic: lidocaine 1% Amount of anesthesia used (mL): 2 Ultrasound Used for Placement: Yes Central Line Lumen Inserted: triple Post Procedure: sutured in place and good blood return Patient Tolerated Procedure: well Complications: none Intubation Time out performed: Yes sedative: Etomidate Mg Given: 20 Laryngoscope: fiber optic video scope ET Tube Size: 7 Tube Secured Depth (cm): 21 Tube Secured Location: lips Tube Placement Confirmation: visualized tube passing through cords, equal breath sounds bilaterally and confirmation by capnometry Patient Tolerated Procedure: no complications Intubation Complications: none Critical Care Time Critical Care Time Critical Care Time: Yes Total Critical Care Time: 60 Attestation: I spent 60 minutes providing critical care service to the patient, this including time spent at the bedside to evaluate the patient, reassess the patient, monitoring vital signs, review labs, and radiographic studies, counseling the patient/family, discussing the case with consultants, disposition the patient. Discharge Plan Discharge Clinical Impression: Hypothermia, Septic shock, Pneumonia, Unresponsive Patient Disposition: Admitted As Inpatient
[2023-05-05] MEDS: propofoL 1,000 MG/100 ML VIAL 11.21 MG IVCONT (15:15)
[2023-05-05 15:21] LABS: Hematocrit 31.9 % (42.0-52.0); Hemoglobin 11.3 g/dl (14.0-18.0); Mean Corpuscular HGB Conc 35.4 g/dl (31.0-36.0); Mean Corpuscular Hemoglobin 33.1 pg (27.0-33.0); Mean Corpuscular Volume 93.5 fL (80.0-98.0); Mean Platelet Volume 13.2 fL (9.4-12.4); Platelet Count 34 X10*3/uL (160-400); Red Blood Count 3.41 X10*6/uL (4.60-5.80); Red Cell Distribution Width 13.6 % (11.0-16.0); WBC ABN SCTR FOR CBC 1
[2023-05-05] MEDS: 0.9 % Sodium Chloride 1,000 ML 999 ML IV (15:24)
[2023-05-05] MEDS: Etomidate 20 MG/10 ML VIAL IVPUSH (15:25)
[2023-05-05] MEDS: Succinylcholine Chloride 200 MG/10 ML VIAL 100 MG IVPUSH (15:25)
[2023-05-05 15:30] LABS: Appearance Urine Clear; Color Urine Dark Yellow; Glucose Urine UA Negative (Negative); Leukocyte Esterase Urine Trace (Negative); Nitrite Urine Negative (Negative); UMIC TRIGGER UACC YES; Urine Blood Large (3+) (Negative); Urine Ketones 15 mg/dL (Negative); Urine Protein 100 (2+) mg/dL (Neg-Trace)
[2023-05-05 15:33] LABS: Lactic Acid 4.2 mmol/L (0.5-2.0)
[2023-05-05 15:37] LABS: Alanine Aminotransferase 64 U/L (0-40); Albumin Level 2.5 g/dL (3.5-5.0); Alkaline Phosphatase 268 U/L (39-117); Anion Gap 27 (12-20); Aspartate Amino Transferase 286 U/L (5-37); Bilirubin Direct 2.8 mg/dL (0.0-0.5); Blood Urea Nitrogen 18 mg/dL (9-16); Calcium 8.3 mg/dL (8.4-10.2); Carbon Dioxide 17 mmol/L (22-29); Chloride 103 mmol/L (96-108); Creatinine Clr Calc Pharmacy 131.1; Estimated Glomerular Filt Rate > 60; Glucose Random 78 mg/dL (60-115); Lipase < 4 U/L (8-78); Potassium 3.6 mmol/L (3.3-5.1); Sodium 143 mmol/L (135-145); Total Protein 5.3 g/dL (6.5-8.0)
[2023-05-05 15:42] LABS: B Type Natriuretic Peptide 85 pg/mL (<100)
[2023-05-05 15:43] LABS: White Blood Count 0.8 X10*3/uL (4.8-10.8)
[2023-05-05 15:44] LABS: Troponin-I High Sensitivity < 2.7 ng/L (<3.5-35.0)
--- NOTE | 2023-05-05 15:59 | PC.NURSE ---
1452 Narcan 4mg IN 1455 71% o2 RA, 87 HR, RR30, 20g R EJ placed by 1459 85/63, 20mg etomidate IVP, temp sensing costa placed- 84.6 core temp. dark orange urine output 100cc 1500 100mg succs IVP, continued BVM by RT at bedside. prep for intubation 1501 successful 1st attempt 7ETT placed 21@lip with + color change
[2023-05-05 16:00] LABS: Neutrophils Percent Manual 58 % (45-73)
[2023-05-05 16:01] LABS: Band Neutrophils Percent 9 % (3-5); Lymphocytes Absolute Manual 0.2 X10*3/uL (1.2-4.9); Lymphocytes Percent Manual 30 % (20-40); Neutrophils Absolute Manual 0.5 X10*3/uL (2.0-8.3)
[2023-05-05 16:03] LABS: Large Platelet PRESENT; Monocytes Percent Manual 3 % (2-11); Platelet Estimate DECREASED (NORMAL)
[2023-05-05 16:04] LABS: Burr Cells 2+ (3-5) /OIF; Giant Platelet PRESENT; Platelet Morphology Comment NOTED; RBC Morphology NORMAL
[2023-05-05 16:11] LABS: Influenza A PCR NEGATIVE (Negative); Influenza B PCR NEGATIVE (Negative); Resp Syncy Virus RNA Qual PCR NEGATIVE (Negative); SARS COV2 PCR INHOUSE NEGATIVE (Negative)
[2023-05-05 16:15] LABS: Bacteria Urine None Seen (None Seen); Squamous Epithelial Cell Urine 0-2 /HPF (0-2); WBC Urine 0-5 /HPF (0-5)
[2023-05-05 16:23] LABS: Ethanol < 10 mg/dL
[2023-05-05 16:42] LABS: Acetaminophen LAB < 17 mcg/mL (<30); Salicylate < 5.0 mg/dL (15-30)
[2023-05-05] MEDS: Norepinephrine Bitartrate/D5W 8 MG/250 ML PLAST..BAG 5.84 MG IV (17:10)
[2023-05-05] MEDS: SODIUM CHLORIDE 1869 ML IV (17:13)
[2023-05-05 17:14] LABS: Reflex Lactate? Lactic Acid Added
[2023-05-05] MEDS: cefTRIAXone sodium 1 GM in 0.9 % Sodium Chloride 50 ML IV (17:14)
[2023-05-05 17:21] LABS: Glucose, Whole Blood 67 mg/dL (60-115)
--- NOTE | 2023-05-05 17:53 | PHA.MEDREC ---
Pharmacy Consult ? Medication Reconciliation Pharmacy has completed the medication reconciliation. unable to speak with patient. Left family a voicemail. used most recent discharge summary and claim history.
[2023-05-05 18:00] LABS: Amphetamine Screen Urine Not Detected (Not Detect); Barbiturates, Urine Not Detected (Not Detect); Benzodiazepines Screen Urine Not Detected (Not Detect); Cannabinoid Screen Urine Not Detected (Not Detect); Cocaine Screen Urine Not Detected (Not Detect); Fentanyl, urine Not Detected (Not Detect); Opiate Screen Urine Not Detected (Not Detect); Phencyclidine Screen Urine Not Detected (Not Detect)
[2023-05-05 18:59] LABS: Venous Blood Gas Refer to POC result
[2023-05-05 18:59] LABS: VBG HCO3 16 mmol/L (22-26); VBG pCO2 23 mmHg; VBG pH 7.45 (7.32-7.43); VBG pO2 73 mmHg
[2023-05-05] MEDS: vancomycin HCL 1,500 MG in 0.9 % Sodium Chloride 500 ML 333.33 MG IV (19:05)
[2023-05-05 19:08] LABS: Anion Gap 24 (12-20); Blood Urea Nitrogen 14 mg/dL (9-16); Calcium 7.4 mg/dL (8.4-10.2); Carbon Dioxide 15 mmol/L (22-29); Chloride 111 mmol/L (96-108); Creatinine Clr Calc Pharmacy 139.8; Estimated Glomerular Filt Rate > 60; Glucose Random 81 mg/dL (60-115); Potassium 3.1 mmol/L (3.3-5.1); Sodium 147 mmol/L (135-145)
--- NOTE | 2023-05-05 19:11 | PC.NURSE ---
late entry - pt placed on yanet hugger, 87.3 core temp. now 91.2 core temp propofol infusing per the OCT. warm fluids infused per sepsis protocol. provider at bedside for femoral central line placement. started on levo drip per the OCT. respiratory at bedside to take patient to CT scan. vanco infusing per the OCT. vital signs documented.
[2023-05-05 19:29] LABS: Reflex Lactate? 2 Y
[2023-05-05 19:52] LABS: Red Cell Distribution Width 13.7 % (11.0-16.0)
[2023-05-05 19:53] LABS: Hematocrit 26.7 % (42.0-52.0); Hemoglobin 9.6 g/dl (14.0-18.0); Mean Corpuscular Hemoglobin 33.7 pg (27.0-33.0); Mean Corpuscular Volume 93.7 fL (80.0-98.0); Mean Platelet Volume 12.3 fL (9.4-12.4); Red Blood Count 2.85 X10*6/uL (4.60-5.80)
[2023-05-05 19:56] LABS: PLT ABN DIST 1; Platelet Count 35 X10*3/uL (160-400); White Blood Count 0.8 X10*3/uL (4.8-10.8)
[2023-05-05] MEDS: Potassium Chloride/H20 10 MEQ/100 ML PIGGYBACK 100 MEQ IV ×2 (20:00→21:41)
[2023-05-05 20:02] LABS: ~Lactic Acid-LAB USE ONLY 3.4 mmol/L (0.5-2.0)
[2023-05-05 20:07] LABS: Alanine Aminotransferase 57 U/L (0-40); Albumin Level 2.1 g/dL (3.5-5.0); Alkaline Phosphatase 230 U/L (39-117); Anion Gap 23 (12-20); Aspartate Amino Transferase 260 U/L (5-37); Bilirubin Total 4.6 mg/dL (0.0-1.0); Blood Urea Nitrogen 14 mg/dL (9-16); Calcium 7.5 mg/dL (8.4-10.2); Carbon Dioxide 16 mmol/L (22-29); Chloride 111 mmol/L (96-108); Creatinine Clr Calc Pharmacy 137.5; Estimated Glomerular Filt Rate > 60; Glucose Random 87 mg/dL (60-115); Magnesium 1.5 mg/dL (1.6-2.6); Sodium 147 mmol/L (135-145); Total Protein 4.5 g/dL (6.5-8.0)
[2023-05-05] MEDS: Lactated Ringers 1,000 ML 999 ML IV (20:15)
[2023-05-05] MEDS: Sodium Bicarbonate 8.4% 50 MEQ/50 ML SYRINGE 100 MEQ IVPUSH (20:17)
--- NOTE | 2023-05-05 20:23 | PHA.PROG ---
Admission Date/Time: May 05, 2023 19:47 Indication: SEPSIS Weight in k.3 kg Adjusted body weight in K.72 Barre body weight in K Obesity Dosing Indication % IBW: 19.7 Serum Creatinine - Last 168 Hours 05/05/23 05/05/23 05/05/23 15:09 18:50 19:45 Creatinine 0.64 0.60 0.61 Estimated CrCl and GFR - Last 168 Hours 05/05/23 05/05/23 05/05/23 15:09 18:50 19:45 Estim Creat Clear Calc 131.1 139.8 137.5 Estimated GFR > 60 > 60 > 60 Vancomycin Loading Dose: 1500 MG Current Vancomycin Dosing Regimen: 1250 Q12 Vancomycin Monitoring using AUC goal of 400 - 600 range with trough as surrogate marker: EXPECTED AUC 517 WITH TROUGH 14.4 Date and Time for next Vancomycin Level to be drawn: 05/07 @0500 Pharmacist Comments on Vancomycin Plan: APPROPRIATE LOAD GIVEN IN ED. Vancomycin dosing will take advantage of [employer] as a clinical decision support tool that uses Bayesian modeling to calculate individual patient's pharmacokinetic parameters and forecast the patient's drug concentration time course with the target goal AUC 24 range of 400 - 600 mg/L/hr.
[2023-05-05] MEDS: Albumin Human 25 % 100 ML IV ×6 (20:26→22:07)
--- NOTE | 2023-05-05 20:35 | PC.NURSE ---
This RN floating and helping primary RN Kiwon. Patient's levophed titrated and medications given per OCT and per SUSIE Page. This RN brought patient to ICU with respiratory
[2023-05-05 21:16] LABS: Glucose, Whole Blood 95 mg/dL (60-115)
[2023-05-05] MEDS: Potassium Chloride/H20 40 MEQ/100 ML PIGGYBACK 100 MEQ IV (21:26)
[2023-05-05] MEDS: Magnesium Sulfate/H2O 2 GM/50 ML PIGGYBACK IV (21:26)
[2023-05-05] MEDS: cefEPime HCl 2 GM in 0.9 % Sodium Chloride 50 ML IV (21:44)
[2023-05-05] MEDS: Sodium Bicarbonate 8.4% 50 MEQ/50 ML VIAL 100 MEQ IVPUSH (21:55)
--- NOTE | 2023-05-05 22:18 | P.HPCC_ITS ---
History of Present Illness Date of Service: 05/05/23 Attending physician on admission: Glendy Ramirez Chief Complaint: septic shock / aspiration pneumonitis HPI: ?42-year-old male with underlying history of pancreatitis, type 1 diabetes, schizophrenia, bipolar, PTSD, depression, anxiety, alcoholism, prescription med abuse, previous intubations due to overdose (sleeping pills), medical noncompliance. ?Patient was last well known on Sunday when his mom last spoke to him in the afternoon, he was then found on the floor of his house by his mom on 05/05/2023 around 14:00 and was brought to the emergency room via EMS, patient was noted to be significantly pale, unresponsive, hypotensive and was intubated for airway protection. On arrival to the hospital the patient had been hypotensive blood pressure of 85/63, hypothermic at 84.6 F a temporal temperature. ?Patient was given 30 mL/kilos of IV fluids, central line was placed on the right femoral area and Levophed was started given responsiveness to IV fluids.? He was given ceftriaxone C was noted to have a pneumonia on x-ray. ?His overall workup revealed leukopenia with white count 0.8, H&H of 11.3 and 31.9 respectively, platelet count of 34.? His initial chemistry shows sodium 143, potassium 3.6, carbon dioxide 17, anion gap 27, BUN 18, creatinine 0.64 lactic acid of 4.2, bilirubin 4.0, SAT of 286, albumin 2.5.? U tox negative.? Subsequently the patient was requested to be admitted to the ICU however no trauma survey had been done and CTs of the head, neck, chest, abdomen were requested by Dr. Ramirez. Upon the above-mentioned CT results been reviewed by me, all of which showed no acute pathology other than bibasilar, multi focal pneumonia. ?The patient was evaluated in the ER and his color appeared ashen, had cyanosis of the fingers and lips, requested nursing assistance to administer high doses of Levophed, more IV fluids, albumin, repeat gases and to transfer the patient to this ICU as was possible.? Blood sugar at the time was 80.? Other laboratory such as Mag, phos, ammonia and CPK added to the ER workup. ROS:? Unable to obtain Past Medical History:? As above Previous bacteremia Osteoarthritis Diabetic nephropathy Past Surgical History: none Family history:? Noncontributory Social History: Lives alone with his dogs; has a history of alcoholism for the past 20 years, is known to abuse prescription drugs particularly those for sleeping needs.? No known drug use such as cocaine, fentanyl, heroin or marijuana. CODE STATUS: FULL CODE Allergies: PCN and MEROPENEM (itching and swelling) Home Medications: See [facility] Sepsis PHYSICAL EXAM done at 705 p.m: VS: ?82/59, 77, 26, 100% on mechanical ventilator with AC, 16, 450, 5, 100% General:? Sedated and intubated. Skin:? Fingers are cyanotic, skin buttock call or appears grayish with some mottling of the lower extremities.? There is a thickening mid thoracic back around vertebral yet road rash like pressure injury over the spine area and surrounding erythema, similar in the coccygeal area which appears stage II, bilateral heels pressure ulcers stage I.? Right groin central line, Philippe catheter in place. HEENT:? Head is normocephalic, atraumatic, Bulbar conjunctivae appears icteric, pupils equal round fixed 4 mm bilaterally. ?Dry buccal mucosa.? No neck masses. Cardiac:? Clear S1-S2, no murmurs rubs or gallops. Pulmonary:? Diminished lung sounds with bibasilar rhonchi like sounds in the lateral aspect.? No wheezing, no rales. Abdomen:? Protuberant, positive bowel sounds in all 4 quadrants.? Soft, nontender, no rebound or guarding.? Musculoskeletal:? Range of motion of the upper and lower extremities major joints reveal no cogwheeling, no crepitus.? Skin as above. ?No asymmetry of the legs and no edema. Neurologic:? As above, unable to further assess. Vascular: ?Trace to +1pulses upper and lower extremities distally. ?Less than 2 seconds capillary refill of the finger and toes bilaterally upper and lower extremities. SIGNIFICANT LABORATORY DATA:? As above REVIEW OF IMAGES: Head/cervical spine CT IMPRESSION: 1. Left parietal scalp contusion/soft tissue edema without calvarial fracture. 2. No acute intracranial abnormality. 3. There is no acute fracture, dislocation or subluxation seen. CT chest, abdomen and pelvis without IV contrast IMPRESSION: Multilobar bilateral infiltrates predominantly in the upper and lower lobes with large consolidation in left lower lobe. There are small bilateral pleural effusions or thickening. Diffuse fatty infiltration of liver without focal lesion. Moderate constipation. Nonspecific mild mural thickening of proximal and distal sigmoid colon but no pericolic fat stranding. Bilateral nonobstructive renal calculi KUB IMPRESSION: Enteric tube courses into the stomach. EKG REVIEW: ?To my view this sinus rhythm ventricular rate of 73 beats per minute.? No ST elevation, no ST depression.? T-wave inversions of the inferior leads (age undetermined).? QTC 482.? No comparison available ASSESSMENT : 1. Acute Severe septic shock 2. Bilateral multi lobar infiltrates likely aspiration 3. Significant leukopenia likely due to the above 4. Dilutional Anemia due to IV fluid administration r/o microscopic bleed 5. Significant metabolic/lactic acidosis due to the above septic shock 6. Acute hypokalemia 7. Bilateral nonobstructive renal calculi 8. Diffuse fatty liver 9. Moderate constipation 10. Hypoalbuminemia 11. Alcohol related transaminitis likely shock liver syndrome / cirrhosis rule out coagulopathy 12. Acute rhabdomyolysis 13. Stage I calcaneus ulcers bilaterally/stage II pressure ulcers of the coccyx, thoracic posterior torso present on admission 14. Severe hypothermia 15. Pseudo hypocalcemia 16. History of type 1 diabetes 17. Iatrogenic hypernatremia due to fluid administration 18. History of medical noncompliance and medication abuse particularly with zolpidem 19. Alcohol dependence 20. Acute hypomagnesemia 21. Distribution alkalosis PLAN OF CARE: Will admit the patient to the ICU, monitor vital signs, I's and O's, will place the patient on Levophed and administer albumin salt.? Will titrate his FiO2 is slowly with goal of 94% or above, obtain sputum culture and Gram stain, cover him with broad-spectrum antibiotics including vancomycin and cefepime given his allergy to penicillin.? Will rewarming him to a temperature 98.6 degrees with Amy Hugger. His calculated bicarb deficit is 180 mEq, I will continue to administer bicarb pushes and will place him on a drip, repeat laboratories in replete electrolytes, will order lactulose, continue to monitor his CPK, 1 call cell will be requested, insulin sliding scale, patient is likely to go into significant alcohol withdrawal and for now he is good with propofol by may need Precedex. ?Order stool occult blood test. ?OG tube will be placed and will order folic acid, thiamine and multivitamin daily.? Will order a formal echo. I had a lengthy discussion with the patient's mother at bedside was well aware of his current clinical scenario, obviously she would like to continue with full code which I do not think it is inappropriate.? The patient has been section 35 in the past given his history of alcoholism and abuse of prescription drugs, in addition to his underlying history of psychiatric issues. She is aware that his prognosis is guarded at this point and he is in a very critical condition. GI PROPHYLAXIS: ?IV ppi DVT PROPHYLAXIS: ?Pneumatic stockings only; given his thrombocytopenia. Clinical update: Repeat focused sepsis physical exam done at 01:15 a.m. on 05/06/2023 102/72 99, 24, 93% Sedated, intubated. Skin has no changes Regular in rate and rhythm no murmurs rubs gallops Lungs remain coursed bilaterally at the bases with fine rhonchi. Abdomen slightly distended but otherwise soft Musculoskeletal no change Vascular 1+ pulses upper and lower extremities bilaterally with less than 2nd capillary refill of the finger and toes bilaterally. Will continue with the same treatment as stated above.? The patient however seems to have received over 5.5 L of fluid between crystalloid and medications, on but has only put out about 1000 cc, his oxygen requirements have not improved and I will administer Lasix IV x1. ?Will follow labs in the morning. If his alkalosis does not improve, we may give him Diamox. Critical care time used for critical evaluation of this patient, diagnosis, treatment and coordination of care, review her records and documentation TOTAL CRITICAL CARE TIME? 180? MIN . discussion and coordination with consultants, completely separate from any procedures performed. Patient's care was discussed in detail with Dr. Ramirez.?She is aware of all the above as well as the plan of care for this patient. 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 Mother Diabetes Surgical History Surgical History No pertinent past surgical history Social History Social History Household Members: Unknown / Unable to assess Household Members Other:: with dog Housing: House Do you presently have visiting nurse or other home services: No Unable to assess alcohol history related to: Unable to respond Alcohol intake: current Alcohol intake frequency: 3 or more drinks per day Alcohol type: hard liquor Patient Tobacco Use Status: Never used Tobacco e-Cigarette/Vaping Use: Never Used Second Hand Smoke Exposure: No Use of substances other than those prescribed or required for medical reasons: Unknown Currently Displaying Signs/Symptoms of Drug Intoxication Withdrawal: No Advance Directives: Yes Advance Directives on File: Yes Advance Directives Date on File: 02/07/22 Do you have thoughts of harming others: None Do you have a plan to hurt others: No Plan Recently lost weight without trying: Unsure Nutrition Risks: Dental problems and Poor intake 0-25% >4 days Poor oral hygiene: Yes service: No Current occupational status: unemployed Meds Allergies Allergy/AdvReac Type Severity Reaction Status Date / Time meropenem [MEROPENEM] Allergy Unknown SWELLING Verified 09/25/22 22:45 penicillin G procaine Allergy Unknown itching Verified 09/25/22 22:45 Penicillins [PENICILLINS] Allergy Unknown SWELLING Verified 09/25/22 22:45 Active Medications: Current Medications Dextrose (Dextrose 50 % 25 Gm/50 Ml Syringe) 25 gm IVPUSH Q15M PRN; Protocol PRN Reason: per Hypoglycemia Standing Ord. Glucose (Glucose Gel 15 Gm Gel..Gram.) 15 gm PO Q15M PRN; Protocol PRN Reason: per Hypoglycemia Standing Ord. Norepinephrine Bitartrate (Levophed) 8 mg in 250 mls @ 0 mls/hr IV .Q0M MAINOR; Protocol Last Titration: 05/05/23 18:52 Dose: 0.13 mcg/kg/min, 15.19 mls/hr Propofol (Diprivan) 1,000 mg in 100 mls @ 0 mls/hr IVCONT .Q0M MAINOR; Protocol Last Titration: 05/05/23 18:27 Dose: 35 mcg/kg/min, 13.08 mls/hr Epinephrine 5 mg/ Dextrose 255 mls @ 0 mls/hr IVCONT .Q0M [facility]; Protocol Albumin Human (Kedbumin 25 %) 100 mls @ 100 mls/hr IV Q1H MAINOR Stop: 05/05/23 23:44 Last Admin: 05/05/23 22:07 Dose: 100 mls/hr Cefepime HCl 2 gm/ Sodium (Chloride) 50 mls @ 100 mls/hr IV Q12H MAINOR Last Admin: 05/05/23 21:44 Dose: 100 mls/hr Vancomycin HCl 1,250 mg/ (Sodium Chloride) 250 mls @ 166.667 mls/hr IV Q12H [facility]INOR Magnesium Sulfate (Magnesium Sulfate/H2o) 2 gm in 50 mls @ 25 mls/hr IV ONCE ONE Stop: 05/05/23 22:45 Last Admin: 05/05/23 21:26 Dose: 25 mls/hr Insulin Human Lispro (Insulin Lispro 100 Unit/Ml 3 Ml Vial) 0 unit SUBCUT Q6H [facility]; Protocol Last Admin: 05/05/23 21:26 Dose: Not Given Pantoprazole Sodium (Pantoprazole Sodium 40 Mg/10 Ml Vial) 40 mg IVPUSH DAILY [facility] Pharmacy Consult (Consult Rx Vancomycin Dosing) 1 each MISCELLANE DAILY PRN PRN Reason: Consult order Home Medications Medication Instructions Recorded Confirmed Last Taken Type lamotrigine 200 mg tablet 200 mg PO BID 01/28/22 05/05/23 1 Month Ago History ~02/20/23 citalopram 40 mg tablet 40 mg PO DAILY 02/08/22 05/05/23 1 Month Ago History ~02/20/23 thiamine HCl (vitamin B1) 100 mg 100 mg PO DAILY 02/08/22 05/05/23 1 Month Ago History tablet ~02/20/23 zolpidem 5 mg tablet 1 tab PO BEDTIME PRN Sleep 03/14/22 05/05/23 1 Month Ago History ~02/20/23 quetiapine 400 mg tablet 1 tab PO BEDTIME 06/12/22 05/05/23 1 Month Ago History ~02/20/23 multivitamin (Daily Multi-Vitamin 1 tab PO DAILY 09/26/22 05/05/23 1 Month Ago History tablet) ~02/20/23 dextrose 40 % oral gel (Glutose-15) 1 ea PO DAILY PRN Hypoglycemia 03/23/23 05/05/23 1 Month Ago History ~02/20/23 Physical Exam 2 Vital Signs: Vital Signs: Last Vital Signs Temp 94.1 F L 05/05/23 22:00 Pulse 95 05/05/23 22:00 Resp 33 H 05/05/23 22:00 BP 111/79 05/05/23 22:00 Pulse Ox 90 L 05/05/23 22:00 O2 Del Method Mechanical Ventil ation 05/05/23 22:00 FiO2 60 05/05/23 22:00 BMI result Body Mass Index 19.7 Results Labs 05/06/23 04:44 05/06/23 04:44 Labs: Laboratory Results - last 24 hr 05/05/23 05/05/23 05/05/23 14:54 15:09 15:22 MCV 93.5 MCH 33.1 H MCHC 35.4 RDW 13.6 Plt Count 34 L D MPV 13.2 H Immature Gran % (Auto) Cancelled Neut % (Auto) Cancelled Lymph % (Auto) Cancelled Sunflower % (Auto) Cancelled Eos % (Auto) Cancelled Baso % (Auto) Cancelled Lymph # (Auto) Cancelled Sunflower # (Auto) Cancelled Eos # (Auto) Cancelled Baso # (Auto) Cancelled Abs Immat Gran (auto) Cancelled Absolute Neuts (auto) Cancelled Absolute Nucleated RBC 0.000 Nucleated RBC % (auto) 0.0 Neutrophils % (Manual) 58 Band Neutrophils % 9 H Lymphocytes % (Manual) 30 Monocytes % (Manual) 3 Abs Neuts (Manual) 0.5 L Lymphocytes # (Manual) 0.2 L Platelet Estimate DECREASED Large Platelets PRESENT Giant Platelets PRESENT Plt Morphology Comment NOTED RBC Morphology NORMAL Luis Cells 2+ (3-5) VBG pH VBG pCO2 VBG pO2 VBG HCO3 VBG O2 Saturation VBG Base Excess Anion Gap 27 H Estim Creat Clear Calc 131.1 Estimated GFR > 60 POC Glucose 67 Random Glucose 78 Lactic Acid 4.2 H* Lactic Acid F/U @ 2Hr Lactic Acid F/U @ 4Hr Calcium 8.3 L Phosphorus Magnesium Total Bilirubin 4.0 H Direct Bilirubin 2.8 H AST 286 H ALT 64 H Alkaline Phosphatase 268 H Total Creatine Kinase B-Natriuretic Peptide 85 Total Protein 5.3 L Albumin 2.5 L Lipase < 4 L Urine Color Dark Yellow Urine Appearance Clear Urine pH 6.0 Ur Specific [place] 1.020 Urine Protein 100 (2+) H Urine Glucose (UA) Negative Urine Ketones 15 Urine Blood Large (3+) H Urine Nitrite Negative Ur Leukocyte Esterase Trace H Urine RBC 11-20 H Urine WBC 0-5 Ur Squamous Epith Cells 0-2 Urine Bacteria None Seen Hyaline Casts 6-10 Salicylates Urine Opiates Screen Not Detected Urine Fentanyl Screen Not Detected Acetaminophen Ur Barbiturates Screen Not Detected Ur Phencyclidine Scrn Not Detected Ur Amphetamines Screen Not Detected U Benzodiazepines Scrn Not Detected Urine Cocaine Screen Not Detected U Marijuana (THC) Screen Not Detected Ethyl Alcohol < 10 Influenza Type A (PCR) Influenza Type B (PCR) RSV RNA Qual (PCR) SARS-CoV-2 RNA (RT-PCR) 05/05/23 05/05/23 05/05/23 15:28 16:20 17:26 MCV MCH MCHC RDW Plt Count MPV Immature Gran % (Auto) Neut % (Auto) Lymph % (Auto) Sunflower % (Auto) Eos % (Auto) Baso % (Auto) Lymph # (Auto) Sunflower # (Auto) Eos # (Auto) Baso # (Auto) Abs Immat Gran (auto) Absolute Neuts (auto) Absolute Nucleated RBC Nucleated RBC % (auto) Neutrophils % (Manual) Band Neutrophils % Lymphocytes % (Manual) Monocytes % (Manual) Abs Neuts (Manual) Lymphocytes # (Manual) Platelet Estimate Large Platelets Giant Platelets Plt Morphology Comment RBC Morphology [place] Cells VBG pH VBG pCO2 VBG pO2 VBG HCO3 VBG O2 Saturation VBG Base Excess Anion Gap Estim Creat Clear Calc Estimated GFR POC Glucose Random Glucose Lactic Acid Lactic Acid F/U @ 2Hr 3.0 H* Lactic Acid F/U @ 4Hr Calcium Phosphorus Magnesium Total Bilirubin Direct Bilirubin AST ALT Alkaline Phosphatase Total Creatine Kinase B-Natriuretic Peptide Total Protein Albumin Lipase Urine Color Urine Appearance Urine pH Ur Specific [place] Urine Protein Urine Glucose (UA) Urine Ketones Urine Blood Urine Nitrite Ur Leukocyte Esterase Urine RBC Urine WBC Ur Squamous Epith Cells Urine Bacteria Hyaline Casts Salicylates < 5.0 L Urine Opiates Screen Urine Fentanyl Screen Acetaminophen < 17 Ur Barbiturates Screen Ur Phencyclidine Scrn Ur Amphetamines Screen U Benzodiazepines Scrn Urine Cocaine Screen U Marijuana (THC) Screen Ethyl Alcohol Influenza Type A (PCR) NEGATIVE Influenza Type B (PCR) NEGATIVE RSV RNA Qual (PCR) NEGATIVE SARS-CoV-2 RNA (RT-PCR) NEGATIVE 05/05/23 05/05/23 05/05/23 18:50 18:52 19:45 MCV 93.7 MCH 33.7 H MCHC 36.0 RDW 13.7 Plt Count 35 L MPV 12.3 Immature Gran % (Auto) Neut % (Auto) Lymph % (Auto) Sunflower % (Auto) Eos % (Auto) Baso % (Auto) Lymph # (Auto) Sunflower # (Auto) Eos # (Auto) Baso # (Auto) Abs Immat Gran (auto) Absolute Neuts (auto) Absolute Nucleated RBC 0.000 Nucleated RBC % (auto) 0.0 Neutrophils % (Manual) Band Neutrophils % Lymphocytes % (Manual) Monocytes % (Manual) Abs Neuts (Manual) Lymphocytes # (Manual) Platelet Estimate Large Platelets Giant Platelets Plt Morphology Comment RBC Morphology [place] Cells VBG pH 7.45 H VBG pCO2 23 VBG pO2 73 VBG HCO3 16 L VBG O2 Saturation 94.0 VBG Base Excess -6.0 Anion Gap 24 H 23 H Estim Creat Clear Calc 139.8 137.5 Estimated GFR > 60 > 60 POC Glucose Random Glucose 81 87 Lactic Acid Lactic Acid F/U @ 2Hr Lactic Acid F/U @ 4Hr 3.4 H* Calcium 7.4 L D 7.5 L Phosphorus 4.0 Magnesium 1.5 L Total Bilirubin 4.6 H Direct Bilirubin AST 260 H ALT 57 H Alkaline Phosphatase 230 H Total Creatine Kinase 1488 H B-Natriuretic Peptide Total Protein 4.5 L Albumin 2.1 L Lipase Urine Color Urine Appearance Urine pH Ur Specific [place] Urine Protein Urine Glucose (UA) Urine Ketones Urine Blood Urine Nitrite Ur Leukocyte Esterase Urine RBC Urine WBC Ur Squamous Epith Cells Urine Bacteria Hyaline Casts Salicylates Urine Opiates Screen Urine Fentanyl Screen Acetaminophen Ur Barbiturates Screen Ur Phencyclidine Scrn Ur Amphetamines Screen U Benzodiazepines Scrn Urine Cocaine Screen U Marijuana (THC) Screen Ethyl Alcohol Influenza Type A (PCR) Influenza Type B (PCR) RSV RNA Qual (PCR) SARS-CoV-2 RNA (RT-PCR) 05/05/23 21:12 MCV MCH MCHC RDW Plt Count MPV Immature Gran % (Auto) Neut % (Auto) Lymph % (Auto) Sunflower % (Auto) Eos % (Auto) Baso % (Auto) Lymph # (Auto) Sunflower # (Auto) Eos # (Auto) Baso # (Auto) Abs Immat Gran (auto) Absolute Neuts (auto) Absolute Nucleated RBC Nucleated RBC % (auto) Neutrophils % (Manual) Band Neutrophils % Lymphocytes % (Manual) Monocytes % (Manual) Abs Neuts (Manual) Lymphocytes # (Manual) Platelet Estimate Large Platelets Giant Platelets Plt Morphology Comment RBC Morphology Luis Cells VBG pH VBG pCO2 VBG pO2 VBG HCO3 VBG O2 Saturation VBG Base Excess Anion Gap Estim Creat Clear Calc Estimated GFR POC Glucose 95 Random Glucose Lactic Acid Lactic Acid F/U @ 2Hr Lactic Acid F/U @ 4Hr Calcium Phosphorus Magnesium Total Bilirubin Direct Bilirubin AST ALT Alkaline Phosphatase Total Creatine Kinase B-Natriuretic Peptide Total Protein Albumin Lipase Urine Color Urine Appearance Urine pH Ur Specific [place] Urine Protein Urine Glucose (UA) Urine Ketones Urine Blood Urine Nitrite Ur Leukocyte Esterase Urine RBC Urine WBC Ur Squamous Epith Cells Urine Bacteria Hyaline Casts Salicylates Urine Opiates Screen Urine Fentanyl Screen Acetaminophen Ur Barbiturates Screen Ur Phencyclidine Scrn Ur Amphetamines Screen U Benzodiazepines Scrn Urine Cocaine Screen U Marijuana (THC) Screen Ethyl Alcohol Influenza Type A (PCR) Influenza Type B (PCR) RSV RNA Qual (PCR) SARS-CoV-2 RNA (RT-PCR) Imaging Radiologist's Impressions: Impressions Chest X-Ray 05/05/23 15:19 IMPRESSION: Bilateral patchy ill-defined infiltrates. Advanced endotracheal tube back 2 to [address] 05/05/23 18:40 IMPRESSION: 1. Left parietal scalp contusion/soft tissue edema without calvarial fracture. 2. No acute intracranial abnormality. 3. There is no acute fracture, dislocation or subluxation seen. Head CT 05/05/23 18:40 IMPRESSION: 1. Left parietal scalp contusion/soft tissue edema without calvarial fracture. 2. No acute intracranial abnormality. 3. There is no acute fracture, dislocation or subluxation seen. Abdomen/Pelvis CT 05/05/23 18:47 IMPRESSION: Multilobar bilateral infiltrates predominantly in the upper and lower lobes with large consolidation in left lower lobe. There are small bilateral pleural effusions or thickening. Diffuse fatty infiltration of liver without focal lesion. Moderate constipation. Nonspecific mild mural thickening of proximal and distal sigmoid colon but no pericolic fat stranding. Bilateral nonobstructive renal calculi Chest CT 05/05/23 18:47 IMPRESSION: Multilobar bilateral infiltrates predominantly in the upper and lower lobes with large consolidation in left lower lobe. There are small bilateral pleural effusions or thickening. Diffuse fatty infiltration of liver without focal lesion. Moderate constipation. Nonspecific mild mural thickening of proximal and distal sigmoid colon but no pericolic fat stranding. Bilateral nonobstructive renal calculi Assessment and Plan Time Spent With Patient Time: Total time managing care of this patient today ____ minutes.
[2023-05-05 22:23] LABS: ABG HCO3 19 mmol/L (22-26); ABG pCO2 22 mmHg (32-45); ABG pH 7.55 (7.35-7.45); ABG pO2 71 mmHg (83-108)
[2023-05-05 22:36] LABS: Glucose, Whole Blood 111 mg/dL (60-115)
[2023-05-05] MEDS: Norepinephrine Bitartrate/D5W 8 MG/250 ML PLAST..BAG 70.09 MG IV (23:15)
[2023-05-05 23:19] LABS: ABG Refer to POC result
[2023-05-05] MEDS: Sodium Bicarbonate 8.4% 150 MEQ in Dextrose 5 % 850 ML IV (23:21)
[2023-05-05 23:41] LABS: Ammonia 56 umol/L (13-55)
[2023-05-06] VITALS (81 sets, daily range): BP systolic 77–165; BP diastolic 41–98; PULSE 65–101; RESP 14–36; TEMP 34.9–39; O2SAT 91–411; BMI 18.6
[2023-05-06 00:40] LABS: Lactic Acid 7.5 mmol/L (0.5-2.0)
[2023-05-06] MEDS: propofoL 1,000 MG/100 ML VIAL 14.95 MG IVCONT (00:41)
[2023-05-06 00:43] LABS: Alanine Aminotransferase 40 U/L (0-40); Albumin Level 3.8 g/dL (3.5-5.0); Alkaline Phosphatase 162 U/L (39-117); Anion Gap 27 (12-20); Aspartate Amino Transferase 184 U/L (5-37); Bilirubin Total 4.8 mg/dL (0.0-1.0); Blood Urea Nitrogen 12 mg/dL (9-16); Calcium 7.9 mg/dL (8.4-10.2); Carbon Dioxide 18 mmol/L (22-29); Chloride 111 mmol/L (96-108); Creatinine Clr Calc Pharmacy 125.2; Estimated Glomerular Filt Rate > 60; Glucose Random 163 mg/dL (60-115); Potassium 3.6 mmol/L (3.3-5.1); Sodium 152 mmol/L (135-145); Total Protein 5.3 g/dL (6.5-8.0)
[2023-05-06] MEDS: Lactulose 20 GM/30 ML SOLUTION 40 GM PO (01:02)
[2023-05-06] MEDS: Furosemide 40 MG/4 ML VIAL IVPUSH (01:03)
[2023-05-06] MEDS: Potassium Chloride Packet 20 MEQ PACKET 40 MEQ PO ×3 (01:03→21:50)
[2023-05-06] MEDS: dexmedeTOMIDidine HCL/NS 400 MCG/100 ML INFUS..BTL 15.58 MCG IVCONT ×3 (01:35→17:59)
[2023-05-06 02:24] LABS: Reflex Lactate? Lactic Acid Added
[2023-05-06] MEDS: Norepinephrine Bitartrate/D5W 8 MG/250 ML PLAST..BAG 70.09 MG IV ×2 (02:24→05:35)
[2023-05-06 02:25] LABS: Glucose, Whole Blood 211 mg/dL (60-115)
[2023-05-06] MEDS: Insulin Lispro 100 UNIT/ML 3 ML VIAL SUBCUT ×4 (02:27→23:48)
[2023-05-06 02:46] LABS: ~Lactic Acid-LAB USE ONLY 8.4 mmol/L (0.5-2.0)
[2023-05-06 04:33] LABS: Reflex Lactate? 2 Y
[2023-05-06 04:55] LABS: VBG Base Excess 1.3 mmol/L; VBG HCO3 22 mmol/L (22-26); VBG pCO2 25 mmHg; VBG pH 7.55 (7.32-7.43); VBG pO2 44 mmHg
[2023-05-06 05:00] LABS: Venous Blood Gas Refer to POC result
[2023-05-06 05:11] LABS: Hematocrit 23.3 % (42.0-52.0); Hemoglobin 8.4 g/dl (14.0-18.0); Mean Corpuscular HGB Conc 36.1 g/dl (31.0-36.0); Mean Corpuscular Hemoglobin 34.3 pg (27.0-33.0); Mean Corpuscular Volume 95.1 fL (80.0-98.0); Mean Platelet Volume 13.7 fL (9.4-12.4); NRBC Pct Auto 2.6 /100WBC (0.0-0.2); PLT ABN DIST 1; Platelet Count 31 X10*3/uL (160-400); Red Blood Count 2.45 X10*6/uL (4.60-5.80); Red Cell Distribution Width 14.6 % (11.0-16.0); WBC ABN SCTR FOR CBC 1
[2023-05-06 05:12] LABS: White Blood Count 1.1 X10*3/uL (4.8-10.8)
[2023-05-06 05:21] LABS: Estimated Average Glucose 192 mg/dL; Hemoglobin A1c % 8.3 % (<6.0)
[2023-05-06] MEDS: acetaZOLAMIDE sodium 500 MG VIAL IVPUSH (05:24)
[2023-05-06 05:28] LABS: ~Lactic Acid-LAB USE ONLY 12.2 mmol/L (0.5-2.0)
[2023-05-06 05:29] LABS: Alanine Aminotransferase 41 U/L (0-40); Albumin Level 3.5 g/dL (3.5-5.0); Alkaline Phosphatase 162 U/L (39-117); Anion Gap 27 (12-20); Aspartate Amino Transferase 176 U/L (5-37); Bilirubin Total 5.1 mg/dL (0.0-1.0); Blood Urea Nitrogen 11 mg/dL (9-16); Calcium 8.6 mg/dL (8.4-10.2); Carbon Dioxide 20 mmol/L (22-29); Chloride 108 mmol/L (96-108); Estimated Glomerular Filt Rate > 60; Glucose Random 259 mg/dL (60-115); Magnesium 1.7 mg/dL (1.6-2.6); Phosphorus 1.1 mg/dL (2.7-4.5); Potassium 2.7 mmol/L (3.3-5.1); Sodium 152 mmol/L (135-145); Total Protein 5.6 g/dL (6.5-8.0)
[2023-05-06] MEDS: dexmedeTOMIDidine HCL/NS 400 MCG/100 ML INFUS..BTL 23.36 MCG IVCONT (05:29)
[2023-05-06] MEDS: Sodium Bicarbonate 8.4% 150 MEQ in Dextrose 5 % 850 ML IV (05:33)
[2023-05-06 05:34] LABS: Eosinophils Percent Manual 2 % (0-4); Lymphocytes Absolute Manual 0.5 X10*3/uL (1.2-4.9); Lymphocytes Percent Manual 48 % (20-40); Metamyelocytes Percent 4 %; Neutrophils Absolute Manual 0.5 X10*3/uL (2.0-8.3); Neutrophils Percent Manual 28 % (45-73)
[2023-05-06 05:38] LABS: Band Neutrophils Percent 16 % (3-5); Monocytes Percent Manual 2 % (2-11)
[2023-05-06 05:40] LABS: Large Platelet PRESENT; Platelet Estimate DECREASED (NORMAL); Platelet Morphology Comment NOTED; RBC Morphology NORMAL
[2023-05-06 05:43] LABS: INTERNATIONAL NORM RATIO 2.3 (0.9-1.1); Prothrombin Time 28.2 SEC (11.1-13.3)
[2023-05-06 05:46] LABS: Partial Thromboplastin Time 43.1 SEC (26.0-36.4)
[2023-05-06] MEDS: Magnesium Sulfate/H2O 2 GM/50 ML PIGGYBACK IV ×2 (05:46→22:04)
[2023-05-06] MEDS: Potassium Chloride/H20 40 MEQ/100 ML PIGGYBACK 100 MEQ IV ×2 (05:46→19:14)
[2023-05-06] MEDS: Sodium,Potassium Phosphates POWD.PACK 2 PACKET PO (05:51)
[2023-05-06] MEDS: propofoL 1,000 MG/100 ML VIAL 11.21 MG IVCONT (05:58)
[2023-05-06] MEDS: Albumin Human 25 % 100 ML IV ×4 (06:00→21:01)
--- NOTE | 2023-05-06 06:30 | W.PM.CCHP ---
Procedures Date of Service Date of Service: 05/06/23 Arterial Line Consent: Emergent-no informed consent obtained Sterile Technique Used: Yes Time out performed: Yes Size (Gauge): 20 Technique used: direct puncture technique Post-Procedure: line sutured into place and dry sterile dressing placed Patient tolerated procedure: well and no complications Complications: none Site: right and radial
--- NOTE | 2023-05-06 06:53 | HO.SKINPHOTO ---
Location: Coccyx Category: Pressue Stage: Stage II/DTI surrounding Length: Width: Depth: cm Location: Medial Back Category: Pressue Stage: DTI/rash surrounding Length: Width: Depth: cm Location: R heel Category: Pressure Stage: DTI Length: Width: Depth: cm Location: L heel Category: Pressure Stage: DTI Length: Width: Depth: cm Location: Category: Stage: Length: Width: Depth: cm Location: Category: Stage: Length: Width: Depth: cm
--- NOTE | 2023-05-06 07:00 | PC.NURSE ---
Pt admitted to ICU 05/05 at approx 2100 from ED. Upon initial assessment- pt hypothermic s/p Amy hugger, temp up to 99.7 via core bladder probe. Sedated on propofol, RASS -3, attempted to open eyes and weakly ORTEGA. Precedex added for deeper sedation d/t RR 30s. Levophed ordered and titrated to maintain MAP > 65. A-line to R radial placed at approx 0600 with appropriate waveform and correlates well with manual. Weak peripheral pulses. NSR/ST on tele, HR 90-100s. ETT #7.0, 24 cm at lip. On AC/VC settings- see vent assessment. OGT placed and confirmed with pCXR. Philippe in place, UOP as charted. S/p Lasix 40 mg IVP and Diamox 500 mg IVP. Scant BM. Given multiple amps of bicarb and bicarb gtt started, multiple electrolyte replacements given via PO and IV per MAR. TLC to R fem, dressing changed and PIV placed to R upper arm. Skin- see note. Multiple family members to bedside and aware of pt status/plan of care. Bed locked in low position. Repositioned in bed q2hr. Full CHG bath given upon arrival.
[2023-05-06] MEDS: vancomycin HCL 1,250 MG in 0.9 % Sodium Chloride 250 ML 166.67 MG IV (07:32)
[2023-05-06] MEDS: Vasopressin 20 UNIT/100 ML INFUS..BTL 12 UNIT IV ×3 (08:01→21:13)
[2023-05-06] MEDS: Calcium Chloride 1 GM/10 ML SYRINGE IVPUSH (08:04)
[2023-05-06] MEDS: Multivitamin TABLET 1 TAB PO (08:05)
[2023-05-06] MEDS: Chlorhexidine Gluc Oral Rinse 15 ML MOUTHWASH BUCCAL ×3 (08:05→21:17)
[2023-05-06] MEDS: Lactulose 20 GM/30 ML SOLUTION PO ×2 (08:05→21:17)
[2023-05-06] MEDS: Hydrocortisone Sod Succ/PF 100 MG VIAL 50 MG IVPUSH (08:05)
[2023-05-06] MEDS: Thiamine HCL 100 MG TABLET PO (08:05)
[2023-05-06] MEDS: Folic Acid 1 MG TABLET PO (08:05)
[2023-05-06] MEDS: Pantoprazole Sodium 40 MG/10 ML VIAL IVPUSH (08:05)
[2023-05-06] MEDS: Sodium,Potassium Phosphates POWD.PACK 1 PACKET PO ×4 (08:06→21:17)
[2023-05-06] MEDS: cefEPime HCl 2 GM in 0.9 % Sodium Chloride 50 ML IV ×2 (08:06→21:44)
--- NOTE | 2023-05-06 08:13 | PM.CCPN ---
Subjective Subjective Date of Service: 05/06/23 Interval History: remains hypotensive, clinical status extremely guarded Critical Care Time (minutes): 120 Physical Exam Vital Signs: Vital Signs: Last Vital Signs Temp 99.9 F 05/06/23 08:00 Pulse 76 05/06/23 08:12 Resp 18 05/06/23 08:00 BP 112/60 05/06/23 08:12 Pulse Ox 92 05/06/23 08:00 O2 Del Method Mechanical Ventil ation 05/06/23 08:00 FiO2 40 05/06/23 08:00 BMI result Body Mass Index 18.6 Const: Other: intubated, sedated HEENT: Head: Yes normal to inspection, Yes normocephalic and Yes atraumatic Eyes: General: appearance normal, both eyes and all related structures Pupils: Equal, round and reactive pupils present Neck: Neck: Yes full ROM and Yes supple Chest: Chest palpation & inspection: normal inspection of the chest Resp: Other: appreciable rales and rhonchi, left greater than right; no appreciable wheezing throughout Cardio: Rate: regular rate Rhythm: regular rhythm GI: Inspection: Yes normal to inspection and No distended Palpation (GI): Soft to palpation, not firm, nontender, no guarding and not rigid : General: Yes bladder normal to inspection Male General Exam: Yes normal external exam, No edema, No erythema and No Genital lesions present Penis: No Genital lesions present Skin: Other: some scattered abrasions Neuro: Other: intubated, sedated; spontaneously wiggles toes Cranial nerves: Yes Equal, round and reactive pupils present Extrem: General: Yes no clubbing, cyanosis or edema Psych: Other: unable to assess Objective Data Labs 05/06/23 04:44 05/06/23 04:44 Labs: Laboratory Results - last 24 hr 05/05/23 05/05/23 05/05/23 14:54 15:09 15:22 WBC 0.8 L* RBC 3.41 L Hgb 11.3 L Hct 31.9 L MCV 93.5 MCH 33.1 H MCHC 35.4 RDW 13.6 Plt Count 34 L D MPV 13.2 H Immature Gran % (Auto) Cancelled Neut % (Auto) Cancelled Lymph % (Auto) Cancelled Dickson % (Auto) Cancelled Eos % (Auto) Cancelled Baso % (Auto) Cancelled Lymph # (Auto) Cancelled Dickson # (Auto) Cancelled Eos # (Auto) Cancelled Baso # (Auto) Cancelled Abs Immat Gran (auto) Cancelled Absolute Neuts (auto) Cancelled Absolute Nucleated RBC 0.000 Nucleated RBC % (auto) 0.0 Neutrophils % (Manual) 58 Band Neutrophils % 9 H Lymphocytes % (Manual) 30 Monocytes % (Manual) 3 Eosinophils % (Manual) Metamyelocytes % Abs Neuts (Manual) 0.5 L Lymphocytes # (Manual) 0.2 L Platelet Estimate DECREASED Large Platelets PRESENT Giant Platelets PRESENT Plt Morphology Comment NOTED RBC Morphology NORMAL Luis Cells 2+ (3-5) PT INR APTT O2 Saturation ABG pH at Pt Temp ABG pCO2 at Pt Temp ABG pO2 at Pt Temp ABG HCO3 ABG Base Excess (Actual) VBG pH VBG pCO2 VBG pO2 VBG HCO3 VBG O2 Saturation VBG Base Excess Sodium 143 Potassium 3.6 Chloride 103 Carbon Dioxide 17 L Anion Gap 27 H BUN 18 H Creatinine 0.64 Estim Creat Clear Calc 131.1 Estimated GFR > 60 POC Glucose 67 Random Glucose 78 Estimat Average Glucose Hemoglobin A1c % Lactic Acid 4.2 H* Lactic Acid F/U @ 2Hr Lactic Acid F/U @ 4Hr Calcium 8.3 L Phosphorus Magnesium Total Bilirubin 4.0 H Direct Bilirubin 2.8 H AST 286 H ALT 64 H Alkaline Phosphatase 268 H Ammonia Total Creatine Kinase Troponin I High Sens < 2.7 B-Natriuretic Peptide 85 Total Protein 5.3 L Albumin 2.5 L Lipase < 4 L Urine Color Dark Yellow Urine Appearance Clear Urine pH 6.0 Ur Specific [place] 1.020 Urine Protein 100 (2+) H Urine Glucose (UA) Negative Urine Ketones 15 Urine Blood Large (3+) H Urine Nitrite Negative Ur Leukocyte Esterase Trace H Urine RBC 11-20 H Urine WBC 0-5 Ur Squamous Epith Cells 0-2 Urine Bacteria None Seen Hyaline Casts 6-10 Salicylates Urine Opiates Screen Not Detected Urine Fentanyl Screen Not Detected Acetaminophen Ur Barbiturates Screen Not Detected Ur Phencyclidine Scrn Not Detected Ur Amphetamines Screen Not Detected U Benzodiazepines Scrn Not Detected Urine Cocaine Screen Not Detected U Marijuana (THC) Screen Not Detected Ethyl Alcohol < 10 Influenza Type A (PCR) Influenza Type B (PCR) RSV RNA Qual (PCR) SARS-CoV-2 RNA (RT-PCR) 05/05/23 05/05/23 05/05/23 15:28 16:20 17:26 WBC RBC Hgb Hct MCV MCH MCHC RDW Plt Count MPV Immature Gran % (Auto) Neut % (Auto) Lymph % (Auto) Dickson % (Auto) Eos % (Auto) Baso % (Auto) Lymph # (Auto) Dickson # (Auto) Eos # (Auto) Baso # (Auto) Abs Immat Gran (auto) Absolute Neuts (auto) Absolute Nucleated RBC Nucleated RBC % (auto) Neutrophils % (Manual) Band Neutrophils % Lymphocytes % (Manual) Monocytes % (Manual) Eosinophils % (Manual) Metamyelocytes % Abs Neuts (Manual) Lymphocytes # (Manual) Platelet Estimate Large Platelets Giant Platelets Plt Morphology Comment RBC Morphology [place] Cells PT INR APTT O2 Saturation ABG pH at Pt Temp ABG pCO2 at Pt Temp ABG pO2 at Pt Temp ABG HCO3 ABG Base Excess (Actual) VBG pH VBG pCO2 VBG pO2 VBG HCO3 VBG O2 Saturation VBG Base Excess Sodium Potassium Chloride Carbon Dioxide Anion Gap BUN Creatinine Estim Creat Clear Calc Estimated GFR POC Glucose Random Glucose Estimat Average Glucose Hemoglobin A1c % Lactic Acid Lactic Acid F/U @ 2Hr 3.0 H* Lactic Acid F/U @ 4Hr Calcium Phosphorus Magnesium Total Bilirubin Direct Bilirubin AST ALT Alkaline Phosphatase Ammonia Total Creatine Kinase Troponin I High Sens B-Natriuretic Peptide Total Protein Albumin Lipase Urine Color Urine Appearance Urine pH Ur Specific [place] Urine Protein Urine Glucose (UA) Urine Ketones Urine Blood Urine Nitrite Ur Leukocyte Esterase Urine RBC Urine WBC Ur Squamous Epith Cells Urine Bacteria Hyaline Casts Salicylates < 5.0 L Urine Opiates Screen Urine Fentanyl Screen Acetaminophen < 17 Ur Barbiturates Screen Ur Phencyclidine Scrn Ur Amphetamines Screen U Benzodiazepines Scrn Urine Cocaine Screen U Marijuana (THC) Screen Ethyl Alcohol Influenza Type A (PCR) NEGATIVE Influenza Type B (PCR) NEGATIVE RSV RNA Qual (PCR) NEGATIVE SARS-CoV-2 RNA (RT-PCR) NEGATIVE 05/05/23 05/05/23 05/05/23 18:50 18:52 19:45 WBC 0.8 L* RBC 2.85 L Hgb 9.6 L Hct 26.7 L MCV 93.7 MCH 33.7 H MCHC 36.0 RDW 13.7 Plt Count 35 L MPV 12.3 Immature Gran % (Auto) Neut % (Auto) Lymph % (Auto) Dickson % (Auto) Eos % (Auto) Baso % (Auto) Lymph # (Auto) Dickson # (Auto) Eos # (Auto) Baso # (Auto) Abs Immat Gran (auto) Absolute Neuts (auto) Absolute Nucleated RBC 0.000 Nucleated RBC % (auto) 0.0 Neutrophils % (Manual) Band Neutrophils % Lymphocytes % (Manual) Monocytes % (Manual) Eosinophils % (Manual) Metamyelocytes % Abs Neuts (Manual) Lymphocytes # (Manual) Platelet Estimate Large Platelets Giant Platelets Plt Morphology Comment RBC Morphology [place] Cells PT INR APTT O2 Saturation ABG pH at Pt Temp ABG pCO2 at Pt Temp ABG pO2 at Pt Temp ABG HCO3 ABG Base Excess (Actual) VBG pH 7.45 H VBG pCO2 23 VBG pO2 73 VBG HCO3 16 L VBG O2 Saturation 94.0 VBG Base Excess -6.0 Sodium 147 H 147 H Potassium 3.1 L 3.0 L Chloride 111 H 111 H Carbon Dioxide 15 L 16 L Anion Gap 24 H 23 H BUN 14 14 Creatinine 0.60 0.61 Estim Creat Clear Calc 139.8 137.5 Estimated GFR > 60 > 60 POC Glucose Random Glucose 81 87 Estimat Average Glucose Hemoglobin A1c % Lactic Acid Lactic Acid F/U @ 2Hr Lactic Acid F/U @ 4Hr 3.4 H* Calcium 7.4 L D 7.5 L Phosphorus 4.0 Magnesium 1.5 L Total Bilirubin 4.6 H Direct Bilirubin AST 260 H ALT 57 H Alkaline Phosphatase 230 H Ammonia Total Creatine Kinase 1488 H Troponin I High Sens B-Natriuretic Peptide Total Protein 4.5 L Albumin 2.1 L Lipase Urine Color Urine Appearance Urine pH Ur Specific [place] Urine Protein Urine Glucose (UA) Urine Ketones Urine Blood Urine Nitrite Ur Leukocyte Esterase Urine RBC Urine WBC Ur Squamous Epith Cells Urine Bacteria Hyaline Casts Salicylates Urine Opiates Screen Urine Fentanyl Screen Acetaminophen Ur Barbiturates Screen Ur Phencyclidine Scrn Ur Amphetamines Screen U Benzodiazepines Scrn Urine Cocaine Screen U Marijuana (THC) Screen Ethyl Alcohol Influenza Type A (PCR) Influenza Type B (PCR) RSV RNA Qual (PCR) SARS-CoV-2 RNA (RT-PCR) 05/05/23 05/05/23 05/05/23 21:12 22:17 22:32 WBC RBC Hgb Hct MCV MCH MCHC RDW Plt Count MPV Immature Gran % (Auto) Neut % (Auto) Lymph % (Auto) Dickson % (Auto) Eos % (Auto) Baso % (Auto) Lymph # (Auto) Dickson # (Auto) Eos # (Auto) Baso # (Auto) Abs Immat Gran (auto) Absolute Neuts (auto) Absolute Nucleated RBC Nucleated RBC % (auto) Neutrophils % (Manual) Band Neutrophils % Lymphocytes % (Manual) Monocytes % (Manual) Eosinophils % (Manual) Metamyelocytes % Abs Neuts (Manual) Lymphocytes # (Manual) Platelet Estimate Large Platelets Giant Platelets Plt Morphology Comment RBC Morphology [place] Cells PT INR APTT O2 Saturation 94.0 ABG pH at Pt Temp 7.55 H ABG pCO2 at Pt Temp 22 L ABG pO2 at Pt Temp 71 L ABG HCO3 19 L ABG Base Excess (Actual) -2.0 VBG pH VBG pCO2 VBG pO2 VBG HCO3 VBG O2 Saturation VBG Base Excess Sodium Potassium Chloride Carbon Dioxide Anion Gap BUN Creatinine Estim Creat Clear Calc Estimated GFR POC Glucose 95 111 Random Glucose Estimat Average Glucose Hemoglobin A1c % Lactic Acid Lactic Acid F/U @ 2Hr Lactic Acid F/U @ 4Hr Calcium Phosphorus Magnesium Total Bilirubin Direct Bilirubin AST ALT Alkaline Phosphatase Ammonia Total Creatine Kinase Troponin I High Sens B-Natriuretic Peptide Total Protein Albumin Lipase Urine Color Urine Appearance Urine pH Ur Specific [place] Urine Protein Urine Glucose (UA) Urine Ketones Urine Blood Urine Nitrite Ur Leukocyte Esterase Urine RBC Urine WBC Ur Squamous Epith Cells Urine Bacteria Hyaline Casts Salicylates Urine Opiates Screen Urine Fentanyl Screen Acetaminophen Ur Barbiturates Screen Ur Phencyclidine Scrn Ur Amphetamines Screen U Benzodiazepines Scrn Urine Cocaine Screen U Marijuana (THC) Screen Ethyl Alcohol Influenza Type A (PCR) Influenza Type B (PCR) RSV RNA Qual (PCR) SARS-CoV-2 RNA (RT-PCR) 05/05/23 05/06/23 05/06/23 23:03 00:07 00:20 WBC RBC Hgb Hct MCV MCH MCHC RDW Plt Count MPV Immature Gran % (Auto) Neut % (Auto) Lymph % (Auto) Dickson % (Auto) Eos % (Auto) Baso % (Auto) Lymph # (Auto) Dickson # (Auto) Eos # (Auto) Baso # (Auto) Abs Immat Gran (auto) Absolute Neuts (auto) Absolute Nucleated RBC Nucleated RBC % (auto) Neutrophils % (Manual) Band Neutrophils % Lymphocytes % (Manual) Monocytes % (Manual) Eosinophils % (Manual) Metamyelocytes % Abs Neuts (Manual) Lymphocytes # (Manual) Platelet Estimate Large Platelets Giant Platelets Plt Morphology Comment RBC Morphology Luis Cells PT INR APTT O2 Saturation ABG pH at Pt Temp ABG pCO2 at Pt Temp ABG pO2 at Pt Temp ABG HCO3 ABG Base Excess (Actual) VBG pH VBG pCO2 VBG pO2 VBG HCO3 VBG O2 Saturation VBG Base Excess Sodium 152 H Potassium 3.6 Chloride 111 H Carbon Dioxide 18 L Anion Gap 27 H BUN 12 Creatinine 0.67 Estim Creat Clear Calc 125.2 Estimated GFR > 60 POC Glucose Random Glucose 163 H Estimat Average Glucose Hemoglobin A1c % Lactic Acid 7.5 H* Lactic Acid F/U @ 2Hr Lactic Acid F/U @ 4Hr Calcium 7.9 L Phosphorus Magnesium Total Bilirubin 4.8 H Direct Bilirubin AST 184 H ALT 40 Alkaline Phosphatase 162 H Ammonia 56 H Total Creatine Kinase Troponin I High Sens B-Natriuretic Peptide Total Protein 5.3 L Albumin 3.8 Lipase Urine Color Urine Appearance Urine pH Ur Specific [place] Urine Protein Urine Glucose (UA) Urine Ketones Urine Blood Urine Nitrite Ur Leukocyte Esterase Urine RBC Urine WBC Ur Squamous Epith Cells Urine Bacteria Hyaline Casts Salicylates Urine Opiates Screen Urine Fentanyl Screen Acetaminophen Ur Barbiturates Screen Ur Phencyclidine Scrn Ur Amphetamines Screen U Benzodiazepines Scrn Urine Cocaine Screen U Marijuana (THC) Screen Ethyl Alcohol Influenza Type A (PCR) Influenza Type B (PCR) RSV RNA Qual (PCR) SARS-CoV-2 RNA (RT-PCR) 05/06/23 05/06/23 05/06/23 02:22 02:30 04:44 WBC 1.1 L RBC 2.45 L Hgb 8.4 L Hct 23.3 L MCV 95.1 MCH 34.3 H MCHC 36.1 H RDW 14.6 Plt Count 31 L MPV 13.7 H Immature Gran % (Auto) Cancelled Neut % (Auto) Cancelled Lymph % (Auto) Cancelled [place]ickson % (Auto) Cancelled Eos % (Auto) Cancelled Baso % (Auto) Cancelled Lymph # (Auto) Cancelled [place] # (Auto) Cancelled Eos # (Auto) Cancelled Baso # (Auto) Cancelled Abs Immat Gran (auto) Cancelled Absolute Neuts (auto) Cancelled Absolute Nucleated RBC 0.030 H Nucleated RBC % (auto) 2.6 H Neutrophils % (Manual) 28 L Band Neutrophils % 16 H Lymphocytes % (Manual) 48 H Monocytes % (Manual) 2 Eosinophils % (Manual) 2 Metamyelocytes % 4 Abs Neuts (Manual) 0.5 L Lymphocytes # (Manual) 0.5 L Platelet Estimate DECREASED Large Platelets PRESENT Giant Platelets Plt Morphology Comment NOTED RBC Morphology NORMAL Luis Cells PT INR APTT O2 Saturation ABG pH at Pt Temp ABG pCO2 at Pt Temp ABG pO2 at Pt Temp ABG HCO3 ABG Base Excess (Actual) VBG pH VBG pCO2 VBG pO2 VBG HCO3 VBG O2 Saturation VBG Base Excess Sodium 152 H Potassium 2.7 L D Chloride 108 Carbon Dioxide 20 L Anion Gap 27 H BUN 11 Creatinine 0.87 Estim Creat Clear Calc 91.0 Estimated GFR > 60 POC Glucose 211 H Random Glucose 259 H Estimat Average Glucose 192 Hemoglobin A1c % 8.3 H Lactic Acid Lactic Acid F/U @ 2Hr 8.4 H* Lactic Acid F/U @ 4Hr 12.2 H* Calcium 8.6 D Phosphorus 1.1 L Magnesium 1.7 Total Bilirubin 5.1 H Direct Bilirubin AST 176 H ALT 41 H Alkaline Phosphatase 162 H Ammonia Total Creatine Kinase 877 H Troponin I High Sens B-Natriuretic Peptide Total Protein 5.6 L Albumin 3.5 Lipase Urine Color Urine Appearance Urine pH Ur Specific [place] Urine Protein Urine Glucose (UA) Urine Ketones Urine Blood Urine Nitrite Ur Leukocyte Esterase Urine RBC Urine WBC Ur Squamous Epith Cells Urine Bacteria Hyaline Casts Salicylates Urine Opiates Screen Urine Fentanyl Screen Acetaminophen Ur Barbiturates Screen Ur Phencyclidine Scrn Ur Amphetamines Screen U Benzodiazepines Scrn Urine Cocaine Screen U Marijuana (THC) Screen Ethyl Alcohol Influenza Type A (PCR) Influenza Type B (PCR) RSV RNA Qual (PCR) SARS-CoV-2 RNA (RT-PCR) 05/06/23 05/06/23 04:48 05:28 WBC RBC Hgb Hct MCV MCH MCHC RDW Plt Count MPV Immature Gran % (Auto) Neut % (Auto) Lymph % (Auto) [place]ickson % (Auto) Eos % (Auto) Baso % (Auto) Lymph # (Auto) Dickson # (Auto) Eos # (Auto) Baso # (Auto) Abs Immat Gran (auto) Absolute Neuts (auto) Absolute Nucleated RBC Nucleated RBC % (auto) Neutrophils % (Manual) Band Neutrophils % Lymphocytes % (Manual) Monocytes % (Manual) Eosinophils % (Manual) Metamyelocytes % Abs Neuts (Manual) Lymphocytes # (Manual) Platelet Estimate Large Platelets Giant Platelets Plt Morphology Comment RBC Morphology [place] Cells PT 28.2 H INR 2.3 H APTT 43.1 H O2 Saturation ABG pH at Pt Temp ABG pCO2 at Pt Temp ABG pO2 at Pt Temp ABG HCO3 ABG Base Excess (Actual) VBG pH 7.55 H VBG pCO2 25 VBG pO2 44 VBG HCO3 22 VBG O2 Saturation 73.0 VBG Base Excess 1.3 Sodium Potassium Chloride Carbon Dioxide Anion Gap BUN Creatinine Estim Creat Clear Calc Estimated GFR POC Glucose Random Glucose Estimat Average Glucose Hemoglobin A1c % Lactic Acid Lactic Acid F/U @ 2Hr Lactic Acid F/U @ 4Hr Calcium Phosphorus Magnesium Total Bilirubin Direct Bilirubin AST ALT Alkaline Phosphatase Ammonia Total Creatine Kinase Troponin I High Sens B-Natriuretic Peptide Total Protein Albumin Lipase Urine Color Urine Appearance Urine pH Ur Specific [place] Urine Protein Urine Glucose (UA) Urine Ketones Urine Blood Urine Nitrite Ur Leukocyte Esterase Urine RBC Urine WBC Ur Squamous Epith Cells Urine Bacteria Hyaline Casts Salicylates Urine Opiates Screen Urine Fentanyl Screen Acetaminophen Ur Barbiturates Screen Ur Phencyclidine Scrn Ur Amphetamines Screen U Benzodiazepines Scrn Urine Cocaine Screen U Marijuana (THC) Screen Ethyl Alcohol Influenza Type A (PCR) Influenza Type B (PCR) RSV RNA Qual (PCR) SARS-CoV-2 RNA (RT-PCR) Microbiology Microbiology Results: Microbiology 05/05/23 16:20 Blood - Venous Blood Culture - Preliminary Prelim: GPR Gram Stain only Progress Note: A&P Assessment and plan (1) Septic shock: Status: Acute (2) Hypothermia: Status: Acute (3) Hypoglycemia associated with diabetes: Status: Acute (4) Aspiration pneumonia: Status: Acute Plan Patient is a 42 Y M with diabetes mellitus type I, alcohol use disorder, and mood disorder, last known well 5 days prior, found unresponsive at home; found to be hypothermic, in shock, and with likely aspiration pneumonia; intubated in ED N: intubated, sedated with propofol gtt and dexmedetomidine gtt; likely too critically ill to tolerate sedation vacation today; alcohol use disorder; last known well 5 days prior, presumed last drink 5 days; to maintain vigilance for alcohol withdrawal CV: shock, likely multi-factorial, including hypovolemic, septic, and due to hypothermia; norepinephrine gtt and vasopressin gtt; stress-dose steroids; follow-up TSH, repeat lactate R: intubated; VC; wean ventilator as tolerated; likely aspiration pneumonia, on vancomycin, cefepime; follow-up sputum cultures GI: transaminitis, impaired synthetic function; likely shock liver; continue to monitor : creatinine within normal; highly suspect SHEILA in very near future given shock; continue to monitor electrolytes; anion-gap metabolic acidosis, d/t lactic acidosis; follow-up CK; aggressive fluid resuscitation H: leukopenia, thrombocytopenia; chemical DVT prophylaxis contraindicated at this time ID: empiric vancomycin, cefepime; follow-up blood cultures, urine cultures, sputum cultures E: hypoglycemia; q1h glucose checks S: patient's mother and healthcare proxy called this AM and updated that patient remains extremely critically ill; patient mother encouraged to come to hospital DARLYN Quality Stroke Does the patient have a stroke diagnosis?: No VTE Prior VTE?: No VTE Risk Level:: Medical - moderate - high VTE Device Contraindication: N/A - Device Ordered VTE Drug Contraindication: Treatment Not Tolerated
[2023-05-06] MEDS: Lactated Ringers 1,000 ML 999 ML IV ×4 (08:20→13:37)
[2023-05-06 08:36] LABS: Glucose, Whole Blood 261 mg/dL (60-115)
[2023-05-06] MEDS: Norepinephrine Bitartrate/D5W 8 MG/250 ML PLAST..BAG 78.26 MG IV (08:36)
[2023-05-06] MEDS: fentaNYL citrate/NS 1,000 MCG/100 ML PLAST..BAG 2.5 MCG IVCONT (09:04)
--- NOTE | 2023-05-06 09:30 | MHC.CM.PN ---
Pt intubated in ICU w/septic shock and unable to participate in CM assessment: Information obtained from EMR, very brief family conversation. Pt from home without services: long standing hx of substance use and medical non compliance. Has been sectioned 35 placed in the past. Family supportive and has assisted pt w/care needs in the past. Pt's present condition is critical : d/c planning to be pended at this time until recovery is better known. HCP on file, IMM on chart. CM to follow.
--- NOTE | 2023-05-06 09:41 | HE.PHANOTE ---
SHANE ARGUETA CHANGED DOSE TO 1000MG Q12H AFTER THE 1250 DOSE WAS GIVEN DUE TO INCREASE IN SCR. NEXT LEVEL DUE 05/07 @0500 EVERARDO
[2023-05-06 09:43] LABS: ABG Base Excess -1.3 mmol/L; ABG HCO3 20 mmol/L (22-26); ABG pCO2 23 mmHg (32-45); ABG pH 7.54 (7.35-7.45); ABG pO2 79 mmHg (83-108)
[2023-05-06 09:56] LABS: TSH reflex Free T4 5.05 uIU/mL (0.32-4.0)
[2023-05-06 10:33] LABS: Free T4 (Free Thyroxine) 0.76 ng/dL (0.71-1.85)
[2023-05-06] MEDS: Hydrocortisone Sod Succ/PF 100 MG VIAL 50 MG IV (11:09)
[2023-05-06] MEDS: propofoL 1,000 MG/100 ML VIAL 18.69 MG IVCONT ×2 (11:14→16:16)
[2023-05-06 11:57] LABS: Glucose, Whole Blood 300 mg/dL (60-115)
[2023-05-06] MEDS: Norepinephrine Bitartrate/D5W 8 MG/250 ML PLAST..BAG 50.23 MG IV (12:19)
[2023-05-06 12:22] LABS: Hematocrit 24.8 % (42.0-52.0); Hemoglobin 8.6 g/dl (14.0-18.0); Mean Corpuscular HGB Conc 34.7 g/dl (31.0-36.0); Mean Corpuscular Hemoglobin 34.4 pg (27.0-33.0); Mean Corpuscular Volume 99.2 fL (80.0-98.0); Mean Platelet Volume 12.2 fL (9.4-12.4); NRBC Pct Auto 6.5 /100WBC (0.0-0.2); Platelet Count 27 X10*3/uL (160-400); Red Cell Distribution Width 15.2 % (11.0-16.0); WBC ABN SCTR FOR CBC 1
[2023-05-06 12:32] LABS: Alanine Aminotransferase 43 U/L (0-40); Albumin Level 3.3 g/dL (3.5-5.0); Alkaline Phosphatase 173 U/L (39-117); Anion Gap 25 (12-20); Aspartate Amino Transferase 148 U/L (5-37); Bilirubin Total 6.1 mg/dL (0.0-1.0); Blood Urea Nitrogen 10 mg/dL (9-16); Calcium 9.3 mg/dL (8.4-10.2); Carbon Dioxide 19 mmol/L (22-29); Chloride 110 mmol/L (96-108); Creatinine Clr Calc Pharmacy 86.1; Estimated Glomerular Filt Rate > 60; Glucose Random 320 mg/dL (60-115); Magnesium 1.8 mg/dL (1.6-2.6); Phosphorus 2.2 mg/dL (2.7-4.5); Potassium 3.3 mmol/L (3.3-5.1); Sodium 151 mmol/L (135-145); Total Protein 5.4 g/dL (6.5-8.0)
[2023-05-06 12:44] LABS: Lactic Acid 12.6 mmol/L (0.5-2.0)
[2023-05-06 12:51] LABS: White Blood Count 1.7 X10*3/uL (4.8-10.8)
[2023-05-06 13:39] LABS: Atypical Lymphs Percent Manual 2 % (0-6); Band Neutrophils Percent 15 % (3-5); Eosinophils Percent Manual 2 % (0-4); Lymphocytes Absolute Manual 0.9 X10*3/uL (1.2-4.9); Lymphocytes Percent Manual 51 % (20-40); Metamyelocytes Percent 2 %; Monocytes Absolute Manual 0.1 X10*3/uL (0.1-1.2); Monocytes Percent Manual 4 % (2-11); Neutrophils Absolute Manual 0.7 X10*3/uL (2.0-8.3); Neutrophils Percent Manual 24 % (45-73); Nucleated Red Blood Cells 4 /100WBC (0-0)
[2023-05-06 13:43] LABS: Acanthocytes 1+ (0-2) /OIF; Platelet Estimate DECREASED (NORMAL); Platelet Morphology Comment NORMAL; Polychromasia 1+ (0-2) /OIF; RBC Morphology NOTED; Target Cells 1+ (5-14) /OIF; Tear Drop Cells 1+ (0-2) /OIF
[2023-05-06 14:00] LABS: Reflex Lactate? Lactic Acid Added
[2023-05-06] MEDS: Sodium Bicarbonate 8.4% 150 MEQ in Dextrose 5 % 850 ML 100 MEQ IV ×2 (14:25→23:48)
[2023-05-06] MEDS: Potassium Phosphate/NS 15 MMOL/250 ML PLAST..BAG 62.5 MMOL IV (14:42)
[2023-05-06 14:47] LABS: ~Lactic Acid-LAB USE ONLY 12.7 mmol/L (0.5-2.0)
[2023-05-06 15:17] LABS: Ethylene Glycol NONE DETECTED (NONE DETECTED)
[2023-05-06] MEDS: Hydrocortisone Sod Succ/PF 100 MG VIAL IVPUSH ×2 (15:56→23:48)
[2023-05-06 16:10] LABS: ABG Refer to POC result
[2023-05-06 16:12] LABS: ABG Base Excess -2.8 mmol/L; ABG HCO3 20 mmol/L (22-26); ABG pCO2 29 mmHg (32-45); ABG pH 7.44 (7.35-7.45); ABG pO2 88 mmHg (83-108)
[2023-05-06 16:22] LABS: Reflex Lactate? 2 Y
[2023-05-06 16:51] LABS: ~Lactic Acid-LAB USE ONLY 10.3 mmol/L (0.5-2.0)
[2023-05-06 17:46] LABS: Glucose, Whole Blood 194 mg/dL (60-115)
[2023-05-06 18:00] LABS: Hematocrit 22.9 % (42.0-52.0); Hemoglobin 8.1 g/dl (14.0-18.0); Mean Corpuscular HGB Conc 35.4 g/dl (31.0-36.0); Mean Corpuscular Hemoglobin 35.5 pg (27.0-33.0); Mean Corpuscular Volume 100.4 fL (80.0-98.0); Mean Platelet Volume 12.1 fL (9.4-12.4); Red Blood Count 2.28 X10*6/uL (4.60-5.80); Red Cell Distribution Width 15.6 % (11.0-16.0)
[2023-05-06 18:06] LABS: NRBC Pct Auto 2.4 /100WBC (0.0-0.2); WBC ABN SCTR FOR CBC 1; White Blood Count 2.5 X10*3/uL (4.8-10.8)
[2023-05-06 18:09] LABS: Platelet Count 19 X10*3/uL (160-400)
[2023-05-06] MEDS: Norepinephrine Bitartrate/D5W 8 MG/250 ML PLAST..BAG 40.88 MG IV (18:10)
[2023-05-06 18:14] LABS: Lactic Acid 9.2 mmol/L (0.5-2.0)
[2023-05-06 18:16] LABS: Alanine Aminotransferase 40 U/L (0-40); Albumin Level 2.9 g/dL (3.5-5.0); Alkaline Phosphatase 141 U/L (39-117); Anion Gap 22 (12-20); Aspartate Amino Transferase 145 U/L (5-37); Bilirubin Total 5.5 mg/dL (0.0-1.0); Blood Urea Nitrogen 8 mg/dL (9-16); Calcium 7.5 mg/dL (8.4-10.2); Carbon Dioxide 22 mmol/L (22-29); Chloride 107 mmol/L (96-108); Creatinine Clr Calc Pharmacy 94.3; Estimated Glomerular Filt Rate > 60; Glucose Random 254 mg/dL (60-115); Potassium 3.2 mmol/L (3.3-5.1); Sodium 148 mmol/L (135-145); Total Protein 5.1 g/dL (6.5-8.0)
[2023-05-06] MEDS: vancomycin HCL 1,000 MG in 0.9 % Sodium Chloride 250 ML 270 MG IV (18:31)
[2023-05-06 18:32] LABS: Band Neutrophils Percent 22 % (3-5); Lymphocytes Absolute Manual 0.8 X10*3/uL (1.2-4.9); Lymphocytes Percent Manual 32 % (20-40); Metamyelocytes Absolute 0.1 X10*3/uL; Metamyelocytes Percent 4 %; Monocytes Absolute Manual 0.2 X10*3/uL (0.1-1.2); Monocytes Percent Manual 7 % (2-11); Myelocytes Percent 1 %; Neutrophils Absolute Manual 1.4 X10*3/uL (2.0-8.3); Neutrophils Percent Manual 34 % (45-73); Nucleated Red Blood Cells 1 /100WBC (0-0)
[2023-05-06 18:35] LABS: RBC Morphology NOTED; Tear Drop Cells 1+ (0-2) /OIF
[2023-05-06 18:36] LABS: Basophilic Stippling 1+ (0-2) /OIF; Platelet Estimate DECREASED (NORMAL); Target Cells 1+ (5-14) /OIF
[2023-05-06 18:38] LABS: Platelet Morphology Comment NORMAL
[2023-05-06 19:57] LABS: Reflex Lactate? Lactic Acid Added
[2023-05-06 20:25] LABS: ~Lactic Acid-LAB USE ONLY 7.7 mmol/L (0.5-2.0)
--- NOTE | 2023-05-06 20:48 | ECG_ITS ---
Test Reason : RHYTHM Blood Pressure : / mmHG Vent. Rate : 072 BPM Atrial Rate : 000 BPM P-R Int : 000 ms QRS Dur : 092 ms QT Int : 418 ms P-R-T Axes : 000 -60 033 degrees QTc Int : 457 ms Accelerated Junctional rhythm Left axis deviation Low voltage QRS Incomplete right bundle branch block Possible Lateral infarct , age undetermined Abnormal ECG When compared with ECG of 05-MAY-2023 15:49, Junctional rhythm has replaced Sinus rhythm Incomplete right bundle branch block is now Present Referred By: Wally Contreras Electronically Signed By:XUAN PACK
[2023-05-06 21:29] LABS: Alanine Aminotransferase 38 U/L (0-40); Albumin Level 3.3 g/dL (3.5-5.0); Alkaline Phosphatase 130 U/L (39-117); Anion Gap 22 (12-20); Aspartate Amino Transferase 127 U/L (5-37); Bilirubin Total 5.4 mg/dL (0.0-1.0); Blood Urea Nitrogen 8 mg/dL (9-16); Calcium 7.6 mg/dL (8.4-10.2); Carbon Dioxide 20 mmol/L (22-29); Chloride 107 mmol/L (96-108); Estimated Glomerular Filt Rate > 60; Glucose Random 252 mg/dL (60-115); Magnesium 1.4 mg/dL (1.6-2.6); Phosphorus 3.7 mg/dL (2.7-4.5); Potassium 3.3 mmol/L (3.3-5.1); Sodium 146 mmol/L (135-145); Total Protein 5.2 g/dL (6.5-8.0)
[2023-05-06 21:35] LABS: Troponin-I High Sensitivity 8.8 ng/L (<3.5-35.0)
[2023-05-06 22:12] LABS: Reflex Lactate? 2 Y
[2023-05-06 22:46] LABS: ~Lactic Acid-LAB USE ONLY 9.3 mmol/L (0.5-2.0)
[2023-05-06 23:49] LABS: Glucose, Whole Blood 239 mg/dL (60-115)
[2023-05-07] VITALS (50 sets, daily range): BP systolic 104–151; BP diastolic 57–86; PULSE 5–70; RESP 14–18; TEMP 34.8–38.6; O2SAT 94–100; BMI 18.6; BMI 20.3
[2023-05-07] MEDS: Magnesium Sulfate/H2O 2 GM/50 ML PIGGYBACK IV (02:02)
[2023-05-07] MEDS: propofoL 1,000 MG/100 ML VIAL 1.87 MG IVCONT (02:06)
[2023-05-07] MEDS: Norepinephrine Bitartrate/D5W 8 MG/250 ML PLAST..BAG 17.52 MG IV (02:06)
[2023-05-07 05:17] LABS: ABG Base Excess -2.9 mmol/L; ABG HCO3 20 mmol/L (22-26); ABG pCO2 28 mmHg (32-45); ABG pH 7.46 (7.35-7.45); ABG pO2 88 mmHg (83-108)
[2023-05-07 05:24] LABS: ABG Refer to POC result
[2023-05-07 05:32] LABS: PLT ABN DIST 1; Red Blood Count 1.94 X10*6/uL (4.60-5.80); WBC ABN SCTR FOR CBC 1
[2023-05-07 05:34] LABS: Mean Platelet Volume 13.6 fL (9.4-12.4); NRBC Pct Auto 0.6 /100WBC (0.0-0.2); Red Cell Distribution Width 15.8 % (11.0-16.0)
[2023-05-07] MEDS: metroNIDAZOLE/NS 500 MG/100 ML PIGGYBACK 100 MG IV ×3 (05:41→21:07)
[2023-05-07 05:43] LABS: White Blood Count 4.9 X10*3/uL (4.8-10.8)
[2023-05-07 05:44] LABS: Hemoglobin 6.6 g/dl (14.0-18.0)
[2023-05-07 05:47] LABS: Platelet Count 13 X10*3/uL (160-400)
[2023-05-07 05:50] LABS: Vancomycin Trough 18.8 mcg/mL (10.0-20.0)
[2023-05-07 05:55] LABS: Alanine Aminotransferase 30 U/L (0-40); Albumin Level 3.3 g/dL (3.5-5.0); Alkaline Phosphatase 109 U/L (39-117); Anion Gap 25 (12-20); Aspartate Amino Transferase 96 U/L (5-37); Blood Urea Nitrogen 9 mg/dL (9-16); Calcium 7.7 mg/dL (8.4-10.2); Carbon Dioxide 19 mmol/L (22-29); Chloride 105 mmol/L (96-108); Creatinine Clr Calc Pharmacy 96.6; Estimated Glomerular Filt Rate > 60; Glucose Random 250 mg/dL (60-115); Magnesium 2.2 mg/dL (1.6-2.6); Phosphorus 3.1 mg/dL (2.7-4.5); Potassium 2.4 mmol/L (3.3-5.1); Sodium 147 mmol/L (135-145); Total Protein 4.8 g/dL (6.5-8.0)
[2023-05-07 05:56] LABS: Atypical Lymphs Percent Manual 1 % (0-6); Band Neutrophils Percent 33 % (3-5); Lymphocytes Absolute Manual 0.7 X10*3/uL (1.2-4.9); Lymphocytes Percent Manual 14 % (20-40); Metamyelocytes Absolute 1.1 X10*3/uL; Metamyelocytes Percent 22 %; Monocytes Absolute Manual 0.4 X10*3/uL (0.1-1.2); Monocytes Percent Manual 8 % (2-11); Myelocytes Absolute 0.3 X10*/uL; Myelocytes Percent 6 %; Neutrophils Absolute Manual 2.4 X10*3/uL (2.0-8.3); Neutrophils Percent Manual 16 % (45-73); Nucleated Red Blood Cells 1 /100WBC (0-0)
[2023-05-07 05:57] LABS: Large Platelet PRESENT; Macrocytosis 1+ (5-14) /OIF; Platelet Estimate DECREASED (NORMAL); Platelet Morphology Comment NOTED; RBC Morphology NOTED; Target Cells 1+ (5-14) /OIF; Tear Drop Cells 1+ (0-2) /OIF
[2023-05-07 05:58] LABS: Basophilic Stippling 1+ (0-2) /OIF; Dohle Bodies PRESENT; Hypochromasia 1+ (5-14) /OIF; Toxic Vacuolation PRESENT
[2023-05-07] MEDS: Insulin Lispro 100 UNIT/ML 3 ML VIAL SUBCUT ×3 (06:00→17:34)
[2023-05-07 06:06] LABS: Lactate Dehydrogenase 315 U/L (118-273)
[2023-05-07] MEDS: vancomycin HCL 1,000 MG in 0.9 % Sodium Chloride 250 ML 270 MG IV ×2 (06:08→20:14)
[2023-05-07] MEDS: Potassium Chloride Packet 20 MEQ PACKET 40 MEQ PO (06:09)
--- NOTE | 2023-05-07 06:26 | HE.PHANOTE ---
re vanco trough was 18.8, but dose was reduced yesterday after am dose was already given. continue current treatment model. Next level due 05/08 @0500 marly
[2023-05-07 06:45] LABS: Schistocytes 1+ (0-2) /OIF
[2023-05-07 06:46] LABS: Acanthocytes 1+ (0-2) /OIF
--- NOTE | 2023-05-07 07:00 | CA_ITS ---
Transthoracic Echocardiogram Patient (Last, First, Middle): Yeison Pereyra L Gender: Male Date of : 1980 Age: 42 Procedure Date: 05/07/2023 Procedure Type: Transthoracic Echocardiogram Location: ICU Height: 177.8 cm Weight: 58.51 kg BSA: 1.73 m2 Heart Rate: 53 bpm BP: 115 / 83 mmHg Specimen Transporter: SB Referring MD: Wally RICHARDS Symptoms: SEPTIC SHOCK ? VEGETATION ? IVDA Study Quality: Adequate ECG Rhythm: Sinus bradycardia Conclusions: - The left ventricular systolic function is low normal. The visually estimated ejection fraction is between 50-55%. - There is mild mitral valve regurgitation. - No obvious valvular vegetations noted. Findings Procedure Information Contrast agent, definity, is being given per protocol without apparent complications. The study quality is limited by the presence of a ventilator. Left Ventricle Normal left ventricular cavity size. There is normal left ventricular wall thickness. The left ventricular systolic function is low normal. The visually estimated ejection fraction is between 50-55%. There is no evidence of regional wall motion abnormalities. Diastolic function is normal for age. Right Ventricle Normal right ventricular cavity size. There is mildly decreased right ventricular systolic function. Aortic Valve There is a normal trileaflet aortic valve. There is no aortic valve stenosis. There is no aortic valve regurgitation. Mitral Valve The mitral valve appears normal. There is mild mitral valve regurgitation. There is no mitral valve stenosis. Pulmonic Valve The pulmonic valve is likely normal. Tricuspid Valve There is mild tricuspid valve regurgitation. There is no evidence of pulmonary hypertension. Great Vessels The asc aorta is normal in size. Venous The inferior vena cava is mildly dilated. On ventilator. Pericardium/Pleural There is no evidence of pericardial effusion. Prior Study Comparison No prior study available for comparison. Measurements 2D Linear Measurements IVSd: 0.90 0.6-0.9/0.6-1.0 cm LVIDd: 4.20 3.9-5.3/4.2-5.9 cm LVIDd Index: 2.43 2.4-3.2/2.2-3.1 cm/m2 LVIDs: 2.60 2.0-3.6 cm LVPWd: 0.80 0.7-1.1 cm LA Diam: 3.10 2.7-3.8/3.0-4.0 cm LAIDs Index: 1.79 1.5-2.3 cm/m2 LV Mass: 136.54 67-162/88-224 g LV Mass Index: 78.93 43-95/49-115 g/m2 LVOT Diam: 2.10 3.0+(-)1.3 cm 2D Systolic Function EF 4C: 57.50 >55% EF 2C: 57.60 >55% EF BiP: 55.50 >55% Mitral Valve MV Pk E: 0.92 MV PK A: 0.61 MV Decel Time: 145.00 E/A: 1.50 E'Lateral: 14.30 E'Medial: 9.36 E/E' Med: 9.80 E/E' Lat: 6.40 PHT: 42.00 MVA PHT: 5.24 Decel [place]: 6.35 MR Vol - PW Dopp: 11.88 MR VTI: 1.98 MR ERO: 6.00 MR Alias [place]: 0.31 MR RAD: 0.40 Aortic Valve AoV Pk Diego: 0.95 AoV Pk Grad: 4.00 GARRY: 3.00 LVOT LVOT Pk Diego: 0.78 LVOT Mn [place]: 0.56 LVOT VTI: 0.17 LVOT Pk Grad: 2.00 LVOT Mn Grad: 1.00 LVOT Diam: 2.10 LVOT Area: 3.46 Diastolic Function MV Pk E: 0.92 MV Pk A: 0.61 E/A: 1.50 E'Medial: 9.36 E/E' Med: 9.80 E' Laterial: 14.30 E/E' Lat: 6.40 Right Ventricle TAPSE (mm): 15.10 TVS' [place]: 8.90 Tricuspid Valve TR Pk Diego: 2.44 TR Pk Grad: 24.00 RA Press: 8.00 RVSP: 32.00 Great Vessels Aorta Sinus of Valsalva: 2.90 2.0-3.5 cm Ao Asc: 3.10 2.1-3.4 cm Pulmonary Valve PV Pk Diego: 0.67 Peak PV Grad: 2.00 Updated in Other Vendor System with Status of Final Randal Veras MD electronically signed on 05/07/2023 11:46:43 AM with status of Final
[2023-05-07] MEDS: cefEPime HCl 2 GM in 0.9 % Sodium Chloride 50 ML IV (07:20)
[2023-05-07] MEDS: Hydrocortisone Sod Succ/PF 100 MG VIAL IVPUSH ×2 (07:37→16:04)
[2023-05-07 07:56] LABS: Lactic Acid 11.4 mmol/L (0.5-2.0)
[2023-05-07] MEDS: Pantoprazole Sodium 40 MG/10 ML VIAL IVPUSH (08:17)
[2023-05-07] MEDS: Chlorhexidine Gluc Oral Rinse 15 ML MOUTHWASH BUCCAL ×3 (08:17→20:54)
[2023-05-07] MEDS: Lactulose 20 GM/30 ML SOLUTION PO ×2 (08:17→20:54)
[2023-05-07] MEDS: Folic Acid 1 MG TABLET PO (08:18)
[2023-05-07] MEDS: Multivitamin TABLET 1 TAB PO (08:18)
[2023-05-07] MEDS: Sodium,Potassium Phosphates POWD.PACK 1 PACKET PO ×4 (08:18→20:57)
[2023-05-07] MEDS: Thiamine HCL 100 MG TABLET PO (08:18)
[2023-05-07 08:32] LABS: HBS Num1 34.28 mIU/mL (0-7.99); HBc Num1 0.08 S/CO (0.00-0.79); HBsAGNum1 0.31 S/CO (0.00-0.99); Hepatitis A Antibody IgM 0.16 Index (0-0.79); Hepatitis B Core Antibody Nonreactive (Nonreactive); Hepatitis B Surface Antigen Negative (Negative); ~HepC Num1 0.05 S/CO (0.00-0.79); ~Hepatitis A Antibody IgM Nonreactive (Nonreactive); ~Hepatitis B Surface Antibody REACTIVE (Nonreactive); ~Hepatitis C Antibody Nonreactive (Nonreactive)
[2023-05-07] MEDS: Doxycycline Hyclate 100 MG in 0.9 % Sodium Chloride 250 ML 166.67 MG IV ×2 (08:47→20:57)
[2023-05-07 09:34] LABS: Reflex Lactate? Lactic Acid Added
[2023-05-07] MEDS: levoFLOXacin/D5W 500 MG/100 ML PIGGYBACK 100 MG IV (09:55)
--- NOTE | 2023-05-07 09:57 | MHC.CLN ---
PT IS INTUBATED AND SEDATED PT IS 87% IBW RANGE INDICATES BORDERLINE LOW WT FOR HT, BMI 20 PT WITH 7% NONSIGNIFICANT WT LOSS X 1 YEAR WITH HX ETOH AND DRUG ABUSE PT CURRENTLY RECEIVING GLUCERNA AT 50ML/HR PROVIDES 1200KCALS, 50G PROTEIN PT WITH INCREASED NUTRITION RISK R/T PRESSURE INJURIES RECOMMEND INCREASING TF TO GLUCERNA AT MAX GOAL RATE 65ML/HR WITH 120ML FREE WATER FLUSHES Q 6 HRS TO PROVIDE 1560KCALS (27KCALS/KG), 65G PROTEIN (1.1G/KG), 1810ML TOTAL WATER FROM FORMULA AND FLUSHES (31ML/KG) MONITOR TOLERANCE, RESIDUALS AND LYTES SEE ALSO FULL CLINICAL NUTRITION ASSESSMENT
[2023-05-07 11:29] LABS: Glucose, Whole Blood 201 mg/dL (60-115)
[2023-05-07 13:05] LABS: ~Lactic Acid-LAB USE ONLY 6.8 mmol/L (0.5-2.0)
[2023-05-07 14:33] LABS: Reflex Lactate? 2 Y
--- NOTE | 2023-05-07 15:02 | P.PNCC_ITS ---
Subjective Subjective Date of Service: 05/07/23 Interval History: 42-year-old male found unresponsive on the floor hypothermic to 84 degrees F hyper hypotensive and inappropriately bradycardic with longstanding history of alcoholism in substance abuse with what appears to be in extensive bilateral pneumonia with acute respiratory failure and between his encephalopathy and and hypoxemia required intubation underlying type 2 diabetic currently off all sedation and remains unresponsive bedside echo by the aerial survey technician failed to demonstrate any wall motion abnormality there was no segmental abnormality no primary valve or pericardial disease and he remains in appropriately bradycardic and I added Flagyl because of aspiration to cover for anaerobes but I also because the inappropriate bradycardia did a tick panel and I am empirically covering with doxycycline for that diagnosis and for the 1st time his lactic acid is diminishing it is down to 6 and he is maintaining renal function and urine output he was hypokalemic which we repleted earlier this morning and he became anemic and thrombocytopenic increasingly but at 13,000 platelets we gave him 1 unit of platelet transfusion and with a drop in hemoglobin to 6.6 and again I saw schistocyte on the peripheral smear so I believe 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 DIC Critical Care Time (minutes): 45 Physical Exam 2 Vital Signs: Vital Signs: Last Vital Signs Temp 97.7 F 05/07/23 13:50 Pulse 53 05/07/23 13:51 Resp 14 05/07/23 13:50 BP 137/77 05/07/23 13:51 Pulse Ox 97 05/07/23 13:50 O2 Del Method Mechanical Ventil ation 05/07/23 13:50 O2 Flow Rate 21 05/07/23 03:00 FiO2 21 05/07/23 13:50 BMI result Body Mass Index 20.3 blood pressure 118/71 with oxygen saturation 96% on 28% FiO2 and heart rate is sinus at 54 echo as above abdomen is soft with without organomegaly and nontender and thus far is tolerating tube feedings and scattered bilateral rales skin is sallow but it is intact Objective Data Labs 05/07/23 05:05 05/07/23 05:05 Labs: Laboratory Results - last 24 hr 05/05/23 05/05/23 05/06/23 15:09 23:03 07:23 WBC RBC Hgb Hct MCV MCH MCHC RDW Plt Count MPV Immature Gran % (Auto) Neut % (Auto) Lymph % (Auto) [place] % (Auto) Eos % (Auto) Baso % (Auto) Lymph # (Auto) [place] # (Auto) Eos # (Auto) Baso # (Auto) Abs Immat Gran (auto) Absolute Neuts (auto) Absolute Nucleated RBC Nucleated RBC % (auto) Neutrophils % (Manual) Band Neutrophils % Lymphocytes % (Manual) Atypical Lymphs % (Man) Monocytes % (Manual) Metamyelocytes % Myelocytes % Abs Neuts (Manual) Lymphocytes # (Manual) Monocytes # (Manual) Metamyelocytes # Myelocytes # Nucleated RBCs Toxic Vacuolation Dohle Bodies Platelet Estimate Large Platelets Plt Morphology Comment RBC Morphology Hypochromasia Basophilic Stippling Macrocytosis Target Cells Tear Drop Cells Acanthocytes (Spur) 1+ (0-2) Schistocytes 1+ (0-2) Smear Path Review O2 Saturation ABG pH at Pt Temp ABG pCO2 at Pt Temp ABG pO2 at Pt Temp ABG HCO3 ABG Base Excess (Actual) Sodium Potassium Chloride Carbon Dioxide Anion Gap BUN Creatinine Estim Creat Clear Calc Estimated GFR POC Glucose Random Glucose Lactic Acid Lactic Acid F/U @ 2Hr Lactic Acid F/U @ 4Hr Calcium Phosphorus Magnesium Total Bilirubin AST ALT Alkaline Phosphatase Lactate Dehydrogenase Troponin I High Sens Total Protein Albumin Vancomycin Trough Ethylene Glycol NONE DETECTED Hepatitis A IgM Ab Nonreactive Hep Bs Antigen Negative Hep Bs Antibody REACTIVE Hep B Core Total Ab Nonreactive Hepatitis C Ab (EIA) Nonreactive Blood Type Antibody Screen Crossmatch 05/06/23 05/06/23 05/06/23 11:57 16:08 16:34 WBC RBC Hgb Hct MCV MCH MCHC RDW Plt Count MPV Immature Gran % (Auto) Neut % (Auto) Lymph % (Auto) [place] % (Auto) Eos % (Auto) Baso % (Auto) Lymph # (Auto) [place] # (Auto) Eos # (Auto) Baso # (Auto) Abs Immat Gran (auto) Absolute Neuts (auto) Absolute Nucleated RBC Nucleated RBC % (auto) Neutrophils % (Manual) Band Neutrophils % Lymphocytes % (Manual) Atypical Lymphs % (Man) Monocytes % (Manual) Metamyelocytes % Myelocytes % Abs Neuts (Manual) Lymphocytes # (Manual) Monocytes # (Manual) Metamyelocytes # Myelocytes # Nucleated RBCs Toxic Vacuolation Dohle Bodies Platelet Estimate Large Platelets Plt Morphology Comment RBC Morphology Hypochromasia Basophilic Stippling Macrocytosis Target Cells Tear Drop Cells Acanthocytes (Spur) Schistocytes Smear Path Review O2 Saturation 97.0 ABG pH at Pt Temp 7.44 ABG pCO2 at Pt Temp 29 L ABG pO2 at Pt Temp 88 ABG HCO3 20 L ABG Base Excess (Actual) -2.8 Sodium Potassium Chloride Carbon Dioxide Anion Gap BUN Creatinine Estim Creat Clear Calc Estimated GFR POC Glucose Random Glucose Lactic Acid Lactic Acid F/U @ 2Hr Lactic Acid F/U @ 4Hr 10.3 H* Calcium Phosphorus Magnesium Total Bilirubin AST ALT Alkaline Phosphatase Lactate Dehydrogenase Troponin I High Sens Total Protein Albumin Vancomycin Trough Ethylene Glycol Hepatitis A IgM Ab Hep Bs Antigen Hep Bs Antibody Hep B Core Total Ab Hepatitis C Ab (EIA) Blood Type O Positive Antibody Screen NEGATIVE Crossmatch See Detail 05/06/23 05/06/23 05/06/23 17:43 17:54 20:09 WBC 2.5 L RBC 2.28 L Hgb 8.1 L Hct 22.9 L MCV 100.4 H MCH 35.5 H MCHC 35.4 RDW 15.6 Plt Count 19 L* MPV 12.1 Immature Gran % (Auto) Cancelled Neut % (Auto) Cancelled Lymph % (Auto) Cancelled [place] % (Auto) Cancelled Eos % (Auto) Cancelled Baso % (Auto) Cancelled Lymph # (Auto) Cancelled [place] # (Auto) Cancelled Eos # (Auto) Cancelled Baso # (Auto) Cancelled Abs Immat Gran (auto) Cancelled Absolute Neuts (auto) Cancelled Absolute Nucleated RBC 0.060 H Nucleated RBC % (auto) 2.4 H Neutrophils % (Manual) 34 L Band Neutrophils % 22 H Lymphocytes % (Manual) 32 Atypical Lymphs % (Man) Monocytes % (Manual) 7 Metamyelocytes % 4 Myelocytes % 1 Abs Neuts (Manual) 1.4 L Lymphocytes # (Manual) 0.8 L Monocytes # (Manual) 0.2 Metamyelocytes # 0.1 Myelocytes # Nucleated RBCs 1 H Toxic Vacuolation Dohle Bodies Platelet Estimate DECREASED Large Platelets Plt Morphology Comment NORMAL RBC Morphology NOTED Hypochromasia Basophilic Stippling 1+ (0-2) Macrocytosis Target Cells 1+ (5-14) Tear Drop Cells 1+ (0-2) Acanthocytes (Spur) Schistocytes Smear Path Review O2 Saturation ABG pH at Pt Temp ABG pCO2 at Pt Temp ABG pO2 at Pt Temp ABG HCO3 ABG Base Excess (Actual) Sodium 148 H Potassium 3.2 L Chloride 107 Carbon Dioxide 22 Anion Gap 22 H BUN 8 L Creatinine 0.84 Estim Creat Clear Calc 94.3 Estimated GFR > 60 POC Glucose 194 H Random Glucose 254 H Lactic Acid 9.2 H* Lactic Acid F/U @ 2Hr 7.7 H* Lactic Acid F/U @ 4Hr Calcium 7.5 L D Phosphorus Magnesium Total Bilirubin 5.5 H AST 145 H ALT 40 Alkaline Phosphatase 141 H Lactate Dehydrogenase Troponin I High Sens Total Protein 5.1 L Albumin 2.9 L Vancomycin Trough Ethylene Glycol Hepatitis A IgM Ab Hep Bs Antigen Hep Bs Antibody Hep B Core Total Ab Hepatitis C Ab (EIA) Blood Type Antibody Screen Crossmatch 05/06/23 05/06/23 05/06/23 21:06 22:28 23:45 WBC RBC Hgb Hct MCV MCH MCHC RDW Plt Count MPV Immature Gran % (Auto) Neut % (Auto) Lymph % (Auto) [place] % (Auto) Eos % (Auto) Baso % (Auto) Lymph # (Auto) [place] # (Auto) Eos # (Auto) Baso # (Auto) Abs Immat Gran (auto) Absolute Neuts (auto) Absolute Nucleated RBC Nucleated RBC % (auto) Neutrophils % (Manual) Band Neutrophils % Lymphocytes % (Manual) Atypical Lymphs % (Man) Monocytes % (Manual) Metamyelocytes % Myelocytes % Abs Neuts (Manual) Lymphocytes # (Manual) Monocytes # (Manual) Metamyelocytes # Myelocytes # Nucleated RBCs Toxic Vacuolation Dohle Bodies Platelet Estimate Large Platelets Plt Morphology Comment RBC Morphology Hypochromasia Basophilic Stippling Macrocytosis Target Cells Tear Drop Cells Acanthocytes (Spur) Schistocytes Smear Path Review O2 Saturation ABG pH at Pt Temp ABG pCO2 at Pt Temp ABG pO2 at Pt Temp ABG HCO3 ABG Base Excess (Actual) Sodium 146 H Potassium 3.3 Chloride 107 Carbon Dioxide 20 L Anion Gap 22 H BUN 8 L Creatinine 0.80 Estim Creat Clear Calc 99.0 Estimated GFR > 60 POC Glucose 239 H Random Glucose 252 H Lactic Acid Lactic Acid F/U @ 2Hr Lactic Acid F/U @ 4Hr 9.3 H* Calcium 7.6 L Phosphorus 3.7 Magnesium 1.4 L* Total Bilirubin 5.4 H AST 127 H ALT 38 Alkaline Phosphatase 130 H Lactate Dehydrogenase Troponin I High Sens 8.8 D Total Protein 5.2 L Albumin 3.3 L Vancomycin Trough Ethylene Glycol Hepatitis A IgM Ab Hep Bs Antigen Hep Bs Antibody Hep B Core Total Ab Hepatitis C Ab (EIA) Blood Type Antibody Screen Crossmatch 05/07/23 05/07/23 05/07/23 05:05 05:10 06:56 WBC 4.9 RBC 1.94 L Hgb 6.6 L* Hct 19.4 L* MCV 100.0 H MCH 34.0 H MCHC 34.0 RDW 15.8 Plt Count 13 L* MPV 13.6 H Immature Gran % (Auto) Cancelled Neut % (Auto) Cancelled Lymph % (Auto) Cancelled [place] % (Auto) Cancelled Eos % (Auto) Cancelled Baso % (Auto) Cancelled Lymph # (Auto) Cancelled [place] # (Auto) Cancelled Eos # (Auto) Cancelled Baso # (Auto) Cancelled Abs Immat Gran (auto) Cancelled Absolute Neuts (auto) Cancelled Absolute Nucleated RBC 0.030 H Nucleated RBC % (auto) 0.6 H Neutrophils % (Manual) 16 L Band Neutrophils % 33 H Lymphocytes % (Manual) 14 L Atypical Lymphs % (Man) 1 Monocytes % (Manual) 8 Metamyelocytes % 22 Myelocytes % 6 Abs Neuts (Manual) 2.4 Lymphocytes # (Manual) 0.7 L Monocytes # (Manual) 0.4 Metamyelocytes # 1.1 Myelocytes # 0.3 Nucleated RBCs 1 H Toxic Vacuolation PRESENT Dohle Bodies PRESENT Platelet Estimate DECREASED Large Platelets PRESENT Plt Morphology Comment NOTED RBC Morphology NOTED Hypochromasia 1+ (5-14) Basophilic Stippling 1+ (0-2) Macrocytosis 1+ (5-14) Target Cells 1+ (5-14) Tear Drop Cells 1+ (0-2) Acanthocytes (Spur) Schistocytes Smear Path Review O2 Saturation 98.0 ABG pH at Pt Temp 7.46 H ABG pCO2 at Pt Temp 28 L ABG pO2 at Pt Temp 88 ABG HCO3 20 L ABG Base Excess (Actual) -2.9 Sodium 147 H Potassium 2.4 L* D Chloride 105 Carbon Dioxide 19 L Anion Gap 25 H BUN 9 Creatinine 0.82 Estim Creat Clear Calc 96.6 Estimated GFR > 60 POC Glucose Random Glucose 250 H Lactic Acid 11.4 H* Lactic Acid F/U @ 2Hr Lactic Acid F/U @ 4Hr Calcium 7.7 L Phosphorus 3.1 Magnesium 2.2 Total Bilirubin 6.0 H AST 96 H ALT 30 Alkaline Phosphatase 109 Lactate Dehydrogenase 315 H Troponin I High Sens Total Protein 4.8 L Albumin 3.3 L Vancomycin Trough 18.8 Ethylene Glycol Hepatitis A IgM Ab Hep Bs Antigen Hep Bs Antibody Hep B Core Total Ab Hepatitis C Ab (EIA) Blood Type Antibody Screen Crossmatch 05/07/23 05/07/23 05/07/23 11:26 12:30 14:40 WBC RBC Hgb Hct MCV MCH MCHC RDW Plt Count MPV Immature Gran % (Auto) Neut % (Auto) Lymph % (Auto) [place] % (Auto) Eos % (Auto) Baso % (Auto) Lymph # (Auto) [place] # (Auto) Eos # (Auto) Baso # (Auto) Abs Immat Gran (auto) Absolute Neuts (auto) Absolute Nucleated RBC Nucleated RBC % (auto) Neutrophils % (Manual) Band Neutrophils % Lymphocytes % (Manual) Atypical Lymphs % (Man) Monocytes % (Manual) Metamyelocytes % Myelocytes % Abs Neuts (Manual) Lymphocytes # (Manual) Monocytes # (Manual) Metamyelocytes # Myelocytes # Nucleated RBCs Toxic Vacuolation Dohle Bodies Platelet Estimate Large Platelets Plt Morphology Comment RBC Morphology Hypochromasia Basophilic Stippling Macrocytosis Target Cells Tear Drop Cells Acanthocytes (Spur) Schistocytes Smear Path Review O2 Saturation ABG pH at Pt Temp ABG pCO2 at Pt Temp ABG pO2 at Pt Temp ABG HCO3 ABG Base Excess (Actual) Sodium Potassium Chloride Carbon Dioxide Anion Gap BUN Creatinine Estim Creat Clear Calc Estimated GFR POC Glucose 201 H Random Glucose Lactic Acid Lactic Acid F/U @ 2Hr 6.8 H* Lactic Acid F/U @ 4Hr 6.0 H* Calcium Phosphorus Magnesium Total Bilirubin AST ALT Alkaline Phosphatase Lactate Dehydrogenase Troponin I High Sens Total Protein Albumin Vancomycin Trough Ethylene Glycol Hepatitis A IgM Ab Hep Bs Antigen Hep Bs Antibody Hep B Core Total Ab Hepatitis C Ab (EIA) Blood Type Antibody Screen Crossmatch Microbiology Microbiology Results: Microbiology 05/05/23 15:09 Blood - Venous Blood Culture - Preliminary 05/05/23 21:13 Sputum - Induced Gram Stain - Final 05/05/23 21:13 Sputum - Induced Sputum Culture - Preliminary Culture in progress. 05/05/23 16:20 Blood - Venous Blood Culture - Preliminary Gram positive dmitri Progress Note: A&P Assessment and plan (1) Aspiration pneumonia: Status: Acute (2) Septic shock: Status: Acute (3) Acute metabolic encephalopathy: Status: Acute (4) Hypothermia: Status: Acute (5) Hypoglycemia associated with diabetes: Status: Acute (6) Bradycardia with 41-50 beats per minute: Status: Acute (7) DIC (disseminated intravascular coagulation): Status: Acute (8) Hemolytic anemia associated with infection: Status: Acute (9) Pancytopenia: Status: Acute (10) Neutropenia: Status: Acute Plan so at this point some of the septic dynamics and metabolic issues seem to be resolving and hoping that his mental status will eventually start to respond he does not have any focal neurologic issues and clinically I do not believe he has an nonconvulsive status epilepticus so we will continue to evaluate him off of all sedation keep antibiotics as above Quality Stroke Does the patient have a stroke diagnosis?: No VTE Prior VTE?: No VTE Risk Level:: Medical - moderate - high VTE Device Contraindication: N/A - Device Ordered VTE Drug Contraindication: Treatment Not Tolerated
[2023-05-07 15:17] LABS: ABG Base Excess 2.4 mmol/L; ABG HCO3 25 mmol/L (22-26); ABG pCO2 32 mmHg (32-45); ABG pH 7.49 (7.35-7.45); ABG pO2 74 mmHg (83-108)
[2023-05-07 15:30] LABS: Mean Platelet Volume 11.4 fL (9.4-12.4); PLT CLUMP 1
[2023-05-07 15:32] LABS: Hemoglobin 8.3 g/dl (14.0-18.0); Mean Corpuscular HGB Conc 33.2 g/dl (31.0-36.0); Mean Corpuscular Hemoglobin 32.3 pg (27.0-33.0); Mean Corpuscular Volume 97.3 fL (80.0-98.0); NRBC Pct Auto 0.9 /100WBC (0.0-0.2); Red Blood Count 2.57 X10*6/uL (4.60-5.80); Red Cell Distribution Width 16.6 % (11.0-16.0)
[2023-05-07 15:42] LABS: WBC ABN SCTR FOR CBC 1
[2023-05-07 15:43] LABS: Anion Gap 18 (12-20); Blood Urea Nitrogen 11 mg/dL (9-16); Calcium 8.2 mg/dL (8.4-10.2); Carbon Dioxide 26 mmol/L (22-29); Chloride 108 mmol/L (96-108); Creatinine Clr Calc Pharmacy 102.8; Estimated Glomerular Filt Rate > 60; Glucose Random 213 mg/dL (60-115); Magnesium 1.9 mg/dL (1.6-2.6); Platelet Count 33 X10*3/uL (160-400); Potassium 2.7 mmol/L (3.3-5.1); Sodium 149 mmol/L (135-145)
--- NOTE | 2023-05-07 15:44 | MHC.CM.PN ---
EMR REVIEWED. PT REMAINS ON VENT IN ICU. OFF SEDATION BUT REMAINS UNRESPONSIVE. CM WILL CONTINUE TO FOLLOW FOR DC NEEDS/PLAN.
[2023-05-07 16:43] LABS: Band Neutrophils Percent 35 % (3-5); Lymphocytes Absolute Manual 1.1 X10*3/uL (1.2-4.9); Lymphocytes Percent Manual 15 % (20-40); Metamyelocytes Absolute 1.3 X10*3/uL; Metamyelocytes Percent 18 %; Monocytes Absolute Manual 0.4 X10*3/uL (0.1-1.2); Monocytes Percent Manual 6 % (2-11); Myelocytes Absolute 0.6 X10*/uL; Myelocytes Percent 8 %; Neutrophils Absolute Manual 3.7 X10*3/uL (2.0-8.3); Neutrophils Percent Manual 18 % (45-73); RBC Morphology NOTED
[2023-05-07 16:44] LABS: Burr Cells 1+ (0-2) /OIF; Hypochromasia 1+ (5-14) /OIF; Macrocytosis 1+ (5-14) /OIF; Polychromasia 1+ (0-2) /OIF
[2023-05-07 16:45] LABS: Tear Drop Cells 1+ (0-2) /OIF
[2023-05-07 16:46] LABS: Basophilic Stippling 1+ (0-2) /OIF; Dohle Bodies PRESENT
[2023-05-07 16:47] LABS: Platelet Estimate DECREASED (NORMAL); Toxic Granulation PRESENT
[2023-05-07 16:48] LABS: Platelet Morphology Comment NORMAL
[2023-05-07 17:33] LABS: Glucose, Whole Blood 185 mg/dL (60-115)
[2023-05-07 18:14] LABS: OBS Int Ctl Valid YES; OBS1 POSITIVE (NEGATIVE)
[2023-05-07 18:40] LABS: ABG Refer to POC result
[2023-05-07] MEDS: Norepinephrine Bitartrate/D5W 8 MG/250 ML PLAST..BAG 8.18 MG IV (19:37)
[2023-05-07 20:30] LABS: Lactic Acid 4.1 mmol/L (0.5-2.0)
[2023-05-07 22:12] LABS: Reflex Lactate? Lactic Acid Added
[2023-05-07 22:44] LABS: ~Lactic Acid-LAB USE ONLY 2.6 mmol/L (0.5-2.0)
[2023-05-08] VITALS (39 sets, daily range): BP systolic 85–145; BP diastolic 52–83; PULSE 50–74; RESP 10–20; TEMP 34.8–36.8; O2SAT 94–100; BMI 21.9
[2023-05-08] MEDS: Midazolam HCl/PF 2 MG/2 ML VIAL IVPUSH (00:15)
[2023-05-08 00:25] LABS: Reflex Lactate? 2 Y
[2023-05-08 00:39] LABS: Glucose, Whole Blood 176 mg/dL (60-115)
[2023-05-08] MEDS: Insulin Lispro 100 UNIT/ML 3 ML VIAL SUBCUT ×5 (00:42→23:54)
[2023-05-08] MEDS: Hydrocortisone Sod Succ/PF 100 MG VIAL IVPUSH ×4 (00:42→23:44)
[2023-05-08 00:49] LABS: ~Lactic Acid-LAB USE ONLY 2.2 mmol/L (0.5-2.0)
[2023-05-08] MEDS: metroNIDAZOLE/NS 500 MG/100 ML PIGGYBACK 100 MG IV ×3 (05:04→20:56)
[2023-05-08 05:10] LABS: Hematocrit 23.6 % (42.0-52.0); Mean Corpuscular HGB Conc 33.9 g/dl (31.0-36.0); Mean Corpuscular Hemoglobin 32.1 pg (27.0-33.0); Mean Corpuscular Volume 94.8 fL (80.0-98.0); Mean Platelet Volume 12.7 fL (9.4-12.4); NRBC Pct Auto 0.8 /100WBC (0.0-0.2); Red Blood Count 2.49 X10*6/uL (4.60-5.80); Red Cell Distribution Width 16.6 % (11.0-16.0)
[2023-05-08 05:11] LABS: WBC ABN SCTR FOR CBC 1; White Blood Count 8.4 X10*3/uL (4.8-10.8)
[2023-05-08 05:14] LABS: Platelet Count 14 X10*3/uL (160-400)
[2023-05-08 05:29] LABS: Vancomycin Random 22.1 mcg/mL (15-20)
[2023-05-08 05:40] LABS: Albumin Level 2.8 g/dL (3.5-5.0); Anion Gap 15 (12-20); Blood Urea Nitrogen 14 mg/dL (9-16); Calcium 8.1 mg/dL (8.4-10.2); Carbon Dioxide 26 mmol/L (22-29); Chloride 107 mmol/L (96-108); Creatinine Clr Calc Pharmacy 108.5; Estimated Glomerular Filt Rate > 60; Glucose Random 221 mg/dL (60-115); Magnesium 1.8 mg/dL (1.6-2.6); Phosphorus 1.8 mg/dL (2.7-4.5); Potassium 2.2 mmol/L (3.3-5.1); Sodium 146 mmol/L (135-145)
[2023-05-08 05:50] LABS: Glucose, Whole Blood 196 mg/dL (60-115)
[2023-05-08] MEDS: KCl 20 mEq in 0.45% Sod 20 MEQ/1,000 ML IV.SOLN 42 MEQ IVCONT (05:59)
[2023-05-08] MEDS: Potassium Chloride Packet 20 MEQ PACKET 40 MEQ PO ×2 (06:05→14:54)
--- NOTE | 2023-05-08 06:23 | HE.PHANOTE ---
RE VANCO TROUGH WAS 22.1, 8 HOURS AFTER LAST DOSE. WILL DOSE REDUCE AND START LATER, AT 0900. NEXT LEVEL DUE 05/09 @1900 [place]
[2023-05-08 07:17] LABS: ABG Base Excess 7.6 mmol/L; ABG HCO3 28 mmol/L (22-26); ABG pCO2 28 mmHg (32-45); ABG pH 7.61 (7.35-7.45); ABG pO2 108 mmHg (83-108)
[2023-05-08 07:36] LABS: Band Neutrophils Percent 40 % (3-5); Burr Cells 1+ (0-2) /OIF; Dohle Bodies PRESENT; Hypochromasia 2+ (15-30) /OIF; Lymphocytes Absolute Manual 1.3 X10*3/uL (1.2-4.9); Lymphocytes Percent Manual 15 % (20-40); Macrocytosis 1+ (5-14) /OIF; Metamyelocytes Absolute 0.2 X10*3/uL; Metamyelocytes Percent 2 %; Monocytes Absolute Manual 0.3 X10*3/uL (0.1-1.2); Monocytes Percent Manual 4 % (2-11); Myelocytes Absolute 0.1 X10*/uL; Myelocytes Percent 1 %; Neutrophils Absolute Manual 6.6 X10*3/uL (2.0-8.3); Neutrophils Percent Manual 38 % (45-73); Nucleated Red Blood Cells 1 /100WBC (0-0); Pappenheimer Bodies PRESENT; Polychromasia 1+ (0-2) /OIF; RBC Morphology NOTED; Toxic Granulation PRESENT
[2023-05-08 07:37] LABS: Large Platelet PRESENT; Platelet Estimate DECREASED (NORMAL); Platelet Morphology Comment NOTED; Target Cells 1+ (5-14) /OIF
[2023-05-08 07:41] LABS: Smudge Cells PRESENT
[2023-05-08] MEDS: Pantoprazole Sodium 40 MG/10 ML VIAL IVPUSH (07:46)
[2023-05-08] MEDS: vancomycin HCL 750 MG in 0.9 % Sodium Chloride 250 ML 265 MG IV ×2 (07:49→21:47)
[2023-05-08] MEDS: Doxycycline Hyclate 100 MG in 0.9 % Sodium Chloride 250 ML IV (07:50)
[2023-05-08] MEDS: levoFLOXacin/D5W 500 MG/100 ML PIGGYBACK 100 MG IV (07:56)
[2023-05-08] MEDS: Chlorhexidine Gluc Oral Rinse 15 ML MOUTHWASH BUCCAL ×3 (08:01→20:59)
[2023-05-08] MEDS: Multivitamin TABLET 1 TAB PO (08:25)
[2023-05-08] MEDS: Sodium,Potassium Phosphates POWD.PACK 1 PACKET PO ×4 (08:25→20:59)
[2023-05-08] MEDS: Thiamine HCL 100 MG TABLET PO (08:25)
[2023-05-08] MEDS: Folic Acid 1 MG TABLET PO (08:25)
--- NOTE | 2023-05-08 10:09 | MHC.CLN ---
F/U PT REMAINS INTUBATED AND SEDATED PT WITH INCREASED NUTRITION RISK R/T PRESSURE INJURIES PT RECEIVING TF GLUCERNA AT MAX GOAL RATE 65ML/HR WITH 120ML FREE WATER FLUSHES Q 6 HRS PROVIDES 1560KCALS (27KCALS/KG), 65G PROTEIN (1.1G/KG), 1810ML TOTAL WATER FROM FORMULA AND FLUSHES (31ML/KG) CURRENT TF FORMULA GLUCERNA 1.0 ON BACKORDER DUE TO SUPPLY CHAIN SHORTAGE RECOMMEND CHANGING FORMULA TO PROMOTE AT MAX GOAL RATE 65ML/HR WITH 120ML FREE WATER FLUSHES Q 6 HRS TO PROVIDE 1560KCALS (26.5KCALS/KG), 97.5G PROTEIN (1.6G/KG), 1789ML TOTAL WATER FROM FORMULA AND FLUSHES (30.4ML/KG) DISCUSSED WITH NURSE ON UNIT MONITOR TOLERANCE, RESIDUALS AND LYTES
[2023-05-08 11:47] LABS: Glucose, Whole Blood 270 mg/dL (60-115)
--- NOTE | 2023-05-08 13:53 | MHC.CM.PN ---
Pt remains on ventilatory support in ICU: plans are to assess neurological functioning with sedation vacation. Family in to visit: condition continues to be guarded. CM to follow for finalization of d/c needs as it is too soon to fully assess pt's post acute needs.
[2023-05-08] MEDS: Lidocaine HCl 1 % 10 ML VIAL SUBCUT (16:32)
--- NOTE | 2023-05-08 16:33 | PM.CCPN ---
Subjective Subjective Date of Service: 05/08/23 Interval History: 42-year-old male chronic alcoholic found unresponsive at home for an unknown amount of time intubated due to aspiration risk but the by chest x-ray had extensive bilateral aspiration pneumonitis and tox screen was entirely negative but he certainly had more than enough time to excrete what ever he presented with and he remains unresponsive he every once in a while has some spontaneous lid opening ends and some like a chewing automated is in and that could be a myoclonic issue and the related potentially to what ever cause the encephalopathy and because of his coagulopathy and severe thrombocytopenia he was never a candidate for sampling of his CSF so he was empirically treated and he also had significant necrotic pressure sores on his back and and and his buttock and we had surgery open up the wound and it was superficial it it does not it stayed above the fascia there is no gas in there it was then packed and this we did because he is growing a clostridial organism in this case are deli and and he is being covered with his antibiotics including his metronidazole and the lactic acidosis has resolved he no longer has circulatory issues he has normal thermic well perfused got good kidney perfusion with preserved kidney function numbers all organ systems seen to have repaired and bedside echo indicating that he has got normal LV and RV function with no primary valve disease but he remains encephalopathic and he has been the 2 days off of all sedation His apparent septic presentation was complicated by DIC and he was initially severely leukopenic and neutropenic but he no longer is either 1 of those his neutrophils and his total white count have repaired but he remains thrombocytopenic despite platelet transfusion even his anemia has stabilized so there is no more clinical hemolysis nor is there any active bleeding Critical Care Time (minutes): 45 Physical Exam Vital Signs: Vital Signs: Last Vital Signs Temp 97.2 F 05/08/23 16:00 Pulse 61 05/08/23 16:00 Resp 15 05/08/23 16:00 BP 105/70 05/08/23 16:00 Pulse Ox 95 05/08/23 16:00 O2 Del Method Mechanical Ventil ation 05/08/23 16:00 O2 Flow Rate 21 05/07/23 03:00 FiO2 21 05/08/23 16:00 BMI result Body Mass Index 21.9 Off all pressure support he is maintaining blood pressure 110/80 normal sinus rhythm rate [address]-T changes normal QT interval and QRS an oxygen saturations 95% on minimal FiO2 Lungs scattered bilateral rales no other adventitious sounds Abdomen soft with no organomegaly Bedside echo with normal LV function Objective Data Labs 05/09/23 04:34 05/09/23 04:34 Labs: Laboratory Results - last 24 hr 05/06/23 05/07/23 05/07/23 11:57 15:18 17:30 WBC RBC Hgb Hct MCV MCH MCHC RDW Plt Count MPV Immature Gran % (Auto) Neut % (Auto) Lymph % (Auto) [place] % (Auto) Eos % (Auto) Baso % (Auto) Lymph # (Auto) [place] # (Auto) Eos # (Auto) Baso # (Auto) Abs Immat Gran (auto) Absolute Neuts (auto) Absolute Nucleated RBC Nucleated RBC % (auto) Neutrophils % (Manual) 18 L Band Neutrophils % 35 H Lymphocytes % (Manual) 15 L Monocytes % (Manual) 6 Metamyelocytes % 18 Myelocytes % 8 Abs Neuts (Manual) 3.7 Lymphocytes # (Manual) 1.1 L Monocytes # (Manual) 0.4 Metamyelocytes # 1.3 Myelocytes # 0.6 Nucleated RBCs Smudge Cells Toxic Granulation PRESENT Dohle Bodies PRESENT Platelet Estimate DECREASED Large Platelets Plt Morphology Comment NORMAL RBC Morphology NOTED Polychromasia 1+ (0-2) Hypochromasia 1+ (5-14) Basophilic Stippling 1+ (0-2) Macrocytosis 1+ (5-14) Pappenheimer Bodies Target Cells Tear Drop Cells 1+ (0-2) [place] Cells 1+ (0-2) O2 Saturation ABG pH at Pt Temp ABG pH (Temp Correct) ABG pCO2 at Pt Temp ABG pCO2 (Temp Corrct ABG pO2 at Pt Temp ABG pO2 (Temp Correct ABG HCO3 ABG Base Excess (Actual) VBG pH VBG pCO2 VBG pO2 VBG HCO3 VBG O2 Saturation VBG Base Excess Sodium Potassium Chloride Carbon Dioxide Anion Gap BUN Creatinine Estim Creat Clear Calc Estimated GFR POC Glucose 185 H Random Glucose Lactic Acid Lactic Acid F/U @ 2Hr Lactic Acid F/U @ 4Hr Calcium Phosphorus Magnesium Albumin Stool Occult Blood Random Vancomycin Blood Type O Positive Antibody Screen NEGATIVE Crossmatch See Detail 05/07/23 05/07/23 05/07/23 17:38 20:02 22:00 WBC RBC Hgb Hct MCV MCH MCHC RDW Plt Count MPV Immature Gran % (Auto) Neut % (Auto) Lymph % (Auto) [place] % (Auto) Eos % (Auto) Baso % (Auto) Lymph # (Auto) [place] # (Auto) Eos # (Auto) Baso # (Auto) Abs Immat Gran (auto) Absolute Neuts (auto) Absolute Nucleated RBC Nucleated RBC % (auto) Neutrophils % (Manual) Band Neutrophils % Lymphocytes % (Manual) Monocytes % (Manual) Metamyelocytes % Myelocytes % Abs Neuts (Manual) Lymphocytes # (Manual) Monocytes # (Manual) Metamyelocytes # Myelocytes # Nucleated RBCs Smudge Cells Toxic Granulation Dohle Bodies Platelet Estimate Large Platelets Plt Morphology Comment RBC Morphology Polychromasia Hypochromasia Basophilic Stippling Macrocytosis Pappenheimer Bodies Target Cells Tear Drop Cells Luis Cells O2 Saturation ABG pH at Pt Temp ABG pH (Temp Correct) ABG pCO2 at Pt Temp ABG pCO2 (Temp Corrct ABG pO2 at Pt Temp ABG pO2 (Temp Correct ABG HCO3 ABG Base Excess (Actual) VBG pH VBG pCO2 VBG pO2 VBG HCO3 VBG O2 Saturation VBG Base Excess Sodium Potassium Chloride Carbon Dioxide Anion Gap BUN Creatinine Estim Creat Clear Calc Estimated GFR POC Glucose Random Glucose Lactic Acid 4.1 H* Lactic Acid F/U @ 2Hr 2.6 H* Lactic Acid F/U @ 4Hr Calcium Phosphorus Magnesium Albumin Stool Occult Blood POSITIVE Random Vancomycin Blood Type Antibody Screen Crossmatch 05/07/23 05/08/23 05/08/23 23:58 00:31 04:26 WBC 8.4 RBC 2.49 L Hgb 8.0 L Hct 23.6 L MCV 94.8 MCH 32.1 MCHC 33.9 RDW 16.6 H Plt Count 14 L* D MPV 12.7 H Immature Gran % (Auto) Cancelled Neut % (Auto) Cancelled Lymph % (Auto) Cancelled [place] % (Auto) Cancelled Eos % (Auto) Cancelled Baso % (Auto) Cancelled Lymph # (Auto) Cancelled [place] # (Auto) Cancelled Eos # (Auto) Cancelled Baso # (Auto) Cancelled Abs Immat Gran (auto) Cancelled Absolute Neuts (auto) Cancelled Absolute Nucleated RBC 0.070 H Nucleated RBC % (auto) 0.8 H Neutrophils % (Manual) 38 L Band Neutrophils % 40 H Lymphocytes % (Manual) 15 L Monocytes % (Manual) 4 Metamyelocytes % 2 Myelocytes % 1 Abs Neuts (Manual) 6.6 Lymphocytes # (Manual) 1.3 Monocytes # (Manual) 0.3 Metamyelocytes # 0.2 Myelocytes # 0.1 Nucleated RBCs 1 H Smudge Cells PRESENT Toxic Granulation PRESENT Dohle Bodies PRESENT Platelet Estimate DECREASED Large Platelets PRESENT Plt Morphology Comment NOTED RBC Morphology NOTED Polychromasia 1+ (0-2) Hypochromasia 2+ (15-30) Basophilic Stippling Macrocytosis 1+ (5-14) Pappenheimer Bodies PRESENT Target Cells 1+ (5-14) Tear Drop Cells Luis Cells 1+ (0-2) O2 Saturation Cancelled ABG pH at Pt Temp ABG pH (Temp Correct) ABG pCO2 at Pt Temp ABG pCO2 (Temp Corrct ABG pO2 at Pt Temp ABG pO2 (Temp Correct ABG HCO3 ABG Base Excess (Actual) VBG pH VBG pCO2 VBG pO2 VBG HCO3 VBG O2 Saturation VBG Base Excess Sodium Potassium Chloride Carbon Dioxide Anion Gap BUN Creatinine Estim Creat Clear Calc Estimated GFR POC Glucose 176 H Random Glucose Lactic Acid Lactic Acid F/U @ 2Hr Lactic Acid F/U @ 4Hr 2.2 H* Calcium Phosphorus Magnesium Albumin Stool Occult Blood Random Vancomycin Blood Type Antibody Screen Crossmatch 05/08/23 05/08/23 05/08/23 04:26 04:26 04:26 WBC RBC Hgb Hct MCV MCH MCHC RDW Plt Count MPV Immature Gran % (Auto) Neut % (Auto) Lymph % (Auto) [place] % (Auto) Eos % (Auto) Baso % (Auto) Lymph # (Auto) [place] # (Auto) Eos # (Auto) Baso # (Auto) Abs Immat Gran (auto) Absolute Neuts (auto) Absolute Nucleated RBC Nucleated RBC % (auto) Neutrophils % (Manual) Band Neutrophils % Lymphocytes % (Manual) Monocytes % (Manual) Metamyelocytes % Myelocytes % Abs Neuts (Manual) Lymphocytes # (Manual) Monocytes # (Manual) Metamyelocytes # Myelocytes # Nucleated RBCs Smudge Cells Toxic Granulation Dohle Bodies Platelet Estimate Large Platelets Plt Morphology Comment RBC Morphology Polychromasia Hypochromasia Basophilic Stippling Macrocytosis Pappenheimer Bodies Target Cells Tear Drop Cells Luis Cells O2 Saturation 100.0 ABG pH at Pt Temp Cancelled 7.61 H* ABG pH (Temp Correct) Cancelled ABG pCO2 at Pt Temp Cancelled 28 L ABG pCO2 (Temp Corrct Cancelled ABG pO2 at Pt Temp Cancelled ABG pO2 (Temp Correct ABG HCO3 ABG Base Excess (Actual) VBG pH VBG pCO2 VBG pO2 VBG HCO3 VBG O2 Saturation VBG Base Excess Sodium Potassium Chloride Carbon Dioxide Anion Gap BUN Creatinine Estim Creat Clear Calc Estimated GFR POC Glucose Random Glucose Lactic Acid Lactic Acid F/U @ 2Hr Lactic Acid F/U @ 4Hr Calcium Phosphorus Magnesium Albumin Stool Occult Blood Random Vancomycin Blood Type Antibody Screen Crossmatch 05/08/23 05/08/23 05/08/23 04:26 04:26 04:26 WBC RBC Hgb Hct MCV MCH MCHC RDW Plt Count MPV Immature Gran % (Auto) Neut % (Auto) Lymph % (Auto) [place] % (Auto) Eos % (Auto) Baso % (Auto) Lymph # (Auto) [place] # (Auto) Eos # (Auto) Baso # (Auto) Abs Immat Gran (auto) Absolute Neuts (auto) Absolute Nucleated RBC Nucleated RBC % (auto) Neutrophils % (Manual) Band Neutrophils % Lymphocytes % (Manual) Monocytes % (Manual) Metamyelocytes % Myelocytes % Abs Neuts (Manual) Lymphocytes # (Manual) Monocytes # (Manual) Metamyelocytes # Myelocytes # Nucleated RBCs Smudge Cells Toxic Granulation Dohle Bodies Platelet Estimate Large Platelets Plt Morphology Comment RBC Morphology Polychromasia Hypochromasia Basophilic Stippling Macrocytosis Pappenheimer Bodies Target Cells Tear Drop Cells [place] Cells O2 Saturation ABG pH at Pt Temp ABG pH (Temp Correct) ABG pCO2 at Pt Temp ABG pCO2 (Temp Corrct ABG pO2 at Pt Temp 108 ABG pO2 (Temp Correct Cancelled ABG HCO3 Cancelled 28 H ABG Base Excess (Actual) Cancelled 7.6 VBG pH TNP VBG pCO2 TNP VBG pO2 TNP VBG HCO3 TNP VBG O2 Saturation TNP VBG Base Excess TNP Sodium 146 H Potassium 2.2 L* Chloride 107 Carbon Dioxide 26 Anion Gap 15 BUN 14 Creatinine 0.73 Estim Creat Clear Calc 108.5 Estimated GFR > 60 POC Glucose Random Glucose 221 H Lactic Acid 2.0 Lactic Acid F/U @ 2Hr Lactic Acid F/U @ 4Hr Calcium 8.1 L Phosphorus 1.8 L Magnesium 1.8 Albumin 2.8 L Stool Occult Blood Random Vancomycin 22.1 H Blood Type Antibody Screen Crossmatch 05/08/23 05/08/23 05:46 11:43 WBC RBC Hgb Hct MCV MCH MCHC RDW Plt Count MPV Immature Gran % (Auto) Neut % (Auto) Lymph % (Auto) [place] % (Auto) Eos % (Auto) Baso % (Auto) Lymph # (Auto) [place] # (Auto) Eos # (Auto) Baso # (Auto) Abs Immat Gran (auto) Absolute Neuts (auto) Absolute Nucleated RBC Nucleated RBC % (auto) Neutrophils % (Manual) Band Neutrophils % Lymphocytes % (Manual) Monocytes % (Manual) Metamyelocytes % Myelocytes % Abs Neuts (Manual) Lymphocytes # (Manual) Monocytes # (Manual) Metamyelocytes # Myelocytes # Nucleated RBCs Smudge Cells Toxic Granulation Dohle Bodies Platelet Estimate Large Platelets Plt Morphology Comment RBC Morphology Polychromasia Hypochromasia Basophilic Stippling Macrocytosis Pappenheimer Bodies Target Cells Tear Drop Cells Luis Cells O2 Saturation ABG pH at Pt Temp ABG pH (Temp Correct) ABG pCO2 at Pt Temp ABG pCO2 (Temp Corrct ABG pO2 at Pt Temp ABG pO2 (Temp Correct ABG HCO3 ABG Base Excess (Actual) VBG pH VBG pCO2 VBG pO2 VBG HCO3 VBG O2 Saturation VBG Base Excess Sodium Potassium Chloride Carbon Dioxide Anion Gap BUN Creatinine Estim Creat Clear Calc Estimated GFR POC Glucose 196 H 270 H Random Glucose Lactic Acid Lactic Acid F/U @ 2Hr Lactic Acid F/U @ 4Hr Calcium Phosphorus Magnesium Albumin Stool Occult Blood Random Vancomycin Blood Type Antibody Screen Crossmatch Microbiology Microbiology Results: Microbiology 05/05/23 16:20 Blood - Venous Blood Culture - Preliminary Clostridium sordellii 05/05/23 15:09 Blood - Venous Blood Culture - Preliminary No growth after 24 hours. 05/05/23 21:13 Sputum - Induced Gram Stain - Final 05/05/23 21:13 Sputum - Induced Sputum Culture - Preliminary Culture in progress. Progress Note: A&P Assessment and plan (1) Pressure ulcers of skin of multiple topographic sites: Status: Acute (2) Neutropenia: Status: Acute (3) Pancytopenia: Status: Acute (4) Hemolytic anemia associated with infection: Status: Acute (5) DIC (disseminated intravascular coagulation): Status: Acute (6) Bradycardia with 41-50 beats per minute: Status: Acute (7) Acute metabolic encephalopathy: Status: Acute (8) Aspiration pneumonia: Status: Acute (9) Pneumonia: Status: Acute (10) Septic shock: Status: Acute (11) Hypothermia: Status: Acute (12) Hypoglycemia associated with diabetes: Status: Acute Plan So with resolution of most organ dysfunction outside of the encephalopathy we will maintain antibiotics as above and we wanted to discontinue the femoral line and and place a true central CVP line and in taking pictures of his bilateral internal jugular veins they are almost flat as a pancake implying of course that his filling pressures are still relatively low but we can not do this because of the severe persistent thrombocytopenia and also persistent coagulopathy and so at this point we are stuck with the femoral line for now Probably order EEG in the morning if he does not show signs of some appropriate cognitive function Quality Stroke Does the patient have a stroke diagnosis?: No VTE Prior VTE?: No VTE Risk Level:: Medical - moderate - high VTE Device Contraindication: N/A - Device Ordered VTE Drug Contraindication: Treatment Not Tolerated
--- NOTE | 2023-05-08 17:02 | PC.NURSE ---
16:25 Dr. Edge and shi P.A. to bedside for surgical consult. MD inspected large purple colored DTI to coccyx area and DTI to mid-back. Plan to debride coccyx wound. 16:32 Pt placed in left lateral recumbent position. SUBQ lidocaine used by MD to numb coccyx area. PHeydi, RN and tricot knitter MD at bedside to assist. 16:35 incision made to coccyx wound, drainage allowed. Incision packed with sterile gauze, large foam applied. VSS, pt tolerated procedure well. Family education provided to pt Mother/HCP with insurance plan specialist.
--- NOTE | 2023-05-08 17:39 | P.CONGS_ITS ---
History of Present Illness Consult details Consult date: 05/08/23 Narrative: I was asked by Dr. Soto, ICU attending, to evaluate a patient in the ICU who was found down for few days and among other issues has A sacral decubitus ischemic area with concern is for possible underlying abscess/necrotizing fasciitis. Patient has a 2nd area of the upper thoracic back more superficial as well. Chart was reviewed patient evaluated The patient is currently intubated and sedated. 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 Mother Diabetes Surgical History Surgical History No pertinent past surgical history Social History Social History Household Members: Unknown / Unable to assess Household Members Other:: with dog Housing: House Do you presently have visiting nurse or other home services: No Unable to assess alcohol history related to: Unable to respond Alcohol intake: current Alcohol intake frequency: 3 or more drinks per day Alcohol type: hard liquor Patient Tobacco Use Status: Never used Tobacco e-Cigarette/Vaping Use: Never Used Second Hand Smoke Exposure: No Use of substances other than those prescribed or required for medical reasons: Unknown Currently Displaying Signs/Symptoms of Drug Intoxication Withdrawal: No Advance Directives: Yes Advance Directives on File: Yes Advance Directives Date on File: 02/07/22 Do you have thoughts of harming others: None Do you have a plan to hurt others: No Plan Recently lost weight without trying: Unsure Nutrition Risks: Dental problems and Poor intake 0-25% >4 days Poor oral hygiene: Yes service: No Current occupational status: unemployed Meds Allergies Allergy/AdvReac Type Severity Reaction Status Date / Time meropenem [MEROPENEM] Allergy Unknown SWELLING Verified 09/25/22 22:45 penicillin G procaine Allergy Unknown itching Verified 09/25/22 22:45 Penicillins [PENICILLINS] Allergy Unknown SWELLING Verified 09/25/22 22:45 Active Medications: Current Medications Chlorhexidine Gluconate (Chlorhexidine Gluc Oral Rinse 15 Ml Mouthwash) 15 ml BUCCAL TID [facility] Last Admin: 05/08/23 14:58 Dose: 15 ml Dextrose (Dextrose 50 % 25 Gm/50 Ml Syringe) 25 gm IVPUSH Q15M PRN; Protocol PRN Reason: per Hypoglycemia Standing Ord. Folic Acid (Folic Acid 1 Mg Tablet) 1 mg PO DAILY [facility] Last Admin: 05/08/23 08:25 Dose: 1 mg Glucose (Glucose Gel 15 Gm Gel..Gram.) 15 gm PO Q15M PRN; Protocol PRN Reason: per Hypoglycemia Standing Ord. Hydrocortisone Sodium Succinate (Hydrocortisone Sod Succ/Pf 100 Mg Vial) 100 mg IVPUSH Q8H [facility] Last Admin: 05/08/23 15:57 Dose: 100 mg Norepinephrine Bitartrate (Levophed) 8 mg in 250 mls @ 0 mls/hr IV .Q0M [facility]; Protocol Last Titration: 05/08/23 14:22 Dose: 0.01 mcg/kg/min, 1.17 mls/hr Vasopressin (Vasostrict) 20 unit in 100 mls @ 12 mls/hr IV .Q8H20M [facility] Last Admin: 05/08/23 11:37 Dose: Not Given Midazolam HCl (Versed) 50 mg in 50 mls @ 1 mls/hr IVCONT .Q24H [facility] Last Admin: 05/07/23 22:31 Dose: Not Given Metronidazole (Flagyl) 500 mg in 100 mls @ 100 mls/hr IV Q8H [facility] Last Infusion: 05/08/23 16:04 Dose: Infused Doxycycline Hyclate 100 mg/ (Sodium Chloride) 250 mls @ 166.67 mls/hr IV Q12H [facility] Last Infusion: 05/08/23 11:51 Dose: Infused Levofloxacin (Levaquin) 500 mg in 100 mls @ 100 mls/hr IV Q24H [facility] Last Infusion: 05/08/23 09:46 Dose: Infused Potassium Chloride/Sodium Chloride (Kcl 20 Meq In 0.45% Sod) 20 meq in 1,000 mls @ 42 mls/hr IVCONT .[id number] [facility] Last Admin: 05/08/23 05:59 Dose: 42 mls/hr Vancomycin HCl 750 mg/ Sodium (Chloride) 265 mls @ 265 mls/hr IV Q12H [facility] Last Infusion: 05/08/23 09:45 Dose: Infused Insulin Human Lispro (Insulin Lispro 100 Unit/Ml 3 Ml Vial) 0 unit SUBCUT Q6H [facility]; Protocol Last Admin: 05/08/23 12:52 Dose: 6 unit Lactulose (Lactulose 20 Gm/30 Ml Solution) 20 gm PO BID [facility] Last Admin: 05/08/23 13:23 Dose: Not Given Multivitamins/Vitamin C (Multivitamin Tablet) 1 tab PO DAILY [facility] Last Admin: 05/08/23 08:25 Dose: 1 tab Pantoprazole Sodium (Pantoprazole Sodium 40 Mg/10 Ml Vial) 40 mg IVPUSH DAILY [facility] Last Admin: 05/08/23 07:46 Dose: 40 mg Pharmacy Consult (Consult Rx Vancomycin Dosing) 1 each MISCELLANE DAILY PRN PRN Reason: Consult order Potassium Phos/Sodium Phos (Sodium,Potassium Phosphates Powd.Pack) 1 packet PO QID [facility] Last Admin: 05/08/23 14:54 Dose: 1 packet Thiamine HCl (Thiamine Hcl 100 Mg Tablet) 100 mg PO DAILY [facility] Last Admin: 05/08/23 08:25 Dose: 100 mg Home Medications Medication Instructions Recorded Confirmed Last Taken Type lamotrigine 200 mg tablet 200 mg PO BID 01/28/22 05/05/23 1 Month Ago History ~02/20/23 citalopram 40 mg tablet 40 mg PO DAILY 02/08/22 05/05/23 1 Month Ago History ~02/20/23 thiamine HCl (vitamin B1) 100 mg 100 mg PO DAILY 02/08/22 05/05/23 1 Month Ago History tablet ~02/20/23 zolpidem 5 mg tablet 1 tab PO BEDTIME PRN Sleep 03/14/22 05/05/23 1 Month Ago History ~02/20/23 quetiapine 400 mg tablet 1 tab PO BEDTIME 06/12/22 05/05/23 1 Month Ago History ~02/20/23 multivitamin (Daily Multi-Vitamin 1 tab PO DAILY 09/26/22 05/05/23 1 Month Ago History tablet) ~02/20/23 dextrose 40 % oral gel (Glutose-15) 1 ea PO DAILY PRN Hypoglycemia 03/23/23 05/05/23 1 Month Ago History ~02/20/23 Physical Exam 2 Vital Signs: Vital Signs: Last Vital Signs Temp 97.2 F 05/08/23 17:00 Pulse 71 05/08/23 17:00 Resp 14 05/08/23 17:00 BP 120/77 05/08/23 17:00 Pulse Ox 99 05/08/23 17:00 O2 Del Method Mechanical Ventil ation 05/08/23 17:00 O2 Flow Rate 21 05/07/23 03:00 FiO2 21 05/08/23 17:00 BMI result Body Mass Index 21.9 Back/Spine/Pelvis: Other: Patient has 2 areas of pressure necrosis/decubitus wounds involving sacrum and upper thoracic vertebrae. The sacral wound which measures approximately 10 x 8 cm underwent 1% lidocaine and Betadine prep and explored and was found to be superficial cutaneous and subcutaneous ischemia but no evidence of any abscess or collections or necrotizing fasciitis. The upper back wound is a superficial pressure ulcer decubitus measuring approximately 8 x 8 cm with no evidence of any fluctuance or deep abscess. Results Labs 05/08/23 04:26 05/08/23 17:12 Labs: Abnormal lab results 05/06/23 05/07/23 05/07/23 Range/Units 11:57 20:02 22:00 RBC (4.60-5.80) X10*6/uL Hgb (14.0-18.0) g/dl Hct (42.0-52.0) % RDW (11.0-16.0) % Plt Count (160-400) X10*3/uL MPV (9.4-12.4) fL Absolute Nucleated RBC (0.0-0.012) X10*3/uL Nucleated RBC % (auto) (0.0-0.2) /100WBC Neutrophils % (Manual) (45-73) % Band Neutrophils % (3-5) % Lymphocytes % (Manual) (20-40) % Nucleated RBCs (0-0) /100WBC ABG pH at Pt Temp (7.35-7.45) ABG pCO2 at Pt Temp (32-45) mmHg ABG HCO3 (22-26) mmol/L Sodium (135-145) mmol/L Potassium (3.3-5.1) mmol/L POC Glucose (60-115) mg/dL Random Glucose (60-115) mg/dL Lactic Acid 4.1 H* (0.5-2.0) mmol/L Lactic Acid F/U @ 2Hr 2.6 H* (0.5-2.0) mmol/L Lactic Acid F/U @ 4Hr (0.5-2.0) mmol/L Calcium (8.4-10.2) mg/dL Phosphorus (2.7-4.5) mg/dL Albumin (3.5-5.0) g/dL Random Vancomycin (15-20) mcg/mL Crossmatch See Detail 05/07/23 05/08/23 05/08/23 Range/Units 23:58 00:31 04:26 RBC 2.49 L (4.60-5.80) X10*6/uL Hgb 8.0 L (14.0-18.0) g/dl Hct 23.6 L (42.0-52.0) % RDW 16.6 H (11.0-16.0) % Plt Count 14 L* D (160-400) X10*3/uL MPV 12.7 H (9.4-12.4) fL Absolute Nucleated RBC 0.070 H (0.0-0.012) X10*3/uL Nucleated RBC % (auto) 0.8 H (0.0-0.2) /100WBC Neutrophils % (Manual) 38 L (45-73) % Band Neutrophils % 40 H (3-5) % Lymphocytes % (Manual) 15 L (20-40) % Nucleated RBCs 1 H (0-0) /100WBC ABG pH at Pt Temp 7.61 H* (7.35-7.45) ABG pCO2 at Pt Temp 28 L (32-45) mmHg ABG HCO3 28 H (22-26) mmol/L Sodium 146 H (135-145) mmol/L Potassium 2.2 L* (3.3-5.1) mmol/L POC Glucose 176 H (60-115) mg/dL Random Glucose 221 H (60-115) mg/dL Lactic Acid (0.5-2.0) mmol/L Lactic Acid F/U @ 2Hr (0.5-2.0) mmol/L Lactic Acid F/U @ 4Hr 2.2 H* (0.5-2.0) mmol/L Calcium 8.1 L (8.4-10.2) mg/dL Phosphorus 1.8 L (2.7-4.5) mg/dL Albumin 2.8 L (3.5-5.0) g/dL Random Vancomycin 22.1 H (15-20) mcg/mL Crossmatch 05/08/23 05/08/23 Range/Units 05:46 11:43 RBC (4.60-5.80) X10*6/uL Hgb (14.0-18.0) g/dl Hct (42.0-52.0) % RDW (11.0-16.0) % Plt Count (160-400) X10*3/uL MPV (9.4-12.4) fL Absolute Nucleated RBC (0.0-0.012) X10*3/uL Nucleated RBC % (auto) (0.0-0.2) /100WBC Neutrophils % (Manual) (45-73) % Band Neutrophils % (3-5) % Lymphocytes % (Manual) (20-40) % Nucleated RBCs (0-0) /100WBC ABG pH at Pt Temp (7.35-7.45) ABG pCO2 at Pt Temp (32-45) mmHg ABG HCO3 (22-26) mmol/L Sodium (135-145) mmol/L Potassium (3.3-5.1) mmol/L POC Glucose 196 H 270 H (60-115) mg/dL Random Glucose (60-115) mg/dL Lactic Acid (0.5-2.0) mmol/L Lactic Acid F/U @ 2Hr (0.5-2.0) mmol/L Lactic Acid F/U @ 4Hr (0.5-2.0) mmol/L Calcium (8.4-10.2) mg/dL Phosphorus (2.7-4.5) mg/dL Albumin (3.5-5.0) g/dL Random Vancomycin (15-20) mcg/mL Crossmatch Short CBC 05/08/23 Range/Units 04:26 WBC 8.4 (4.8-10.8) X10*3/uL Hgb 8.0 L (14.0-18.0) g/dl Hct 23.6 L (42.0-52.0) % Plt Count 14 L* D (160-400) X10*3/uL BMP 05/08/23 04:26 Sodium 146 H Potassium 2.2 L* Chloride 107 Carbon Dioxide 26 BUN 14 Creatinine 0.73 Calcium 8.1 L Liver Function 05/08/23 Range/Units 04:26 Albumin 2.8 L (3.5-5.0) g/dL Urine 05/05/23 Range/Units 15:22 Urine Color Dark Yellow Urine Appearance Clear Urine pH 6.0 (5.0-9.0) Ur Specific [place] 1.020 (1.005-1.025) Urine Protein 100 (2+) H (Neg-Trace) mg/dL Urine Glucose (UA) Negative (Negative) mg/dL All other labs normal. Assessment and Plan (1) Pressure ulcers of skin of multiple topographic sites: Status: Acute Plan Current plan is for the patient to undergo local wound care as well as postural changes, to minimize pressure over these areas, wound padding, and optimizing nutrition. At present no other acute surgical issues. Will follow-up p.r.n.. Time Spent With Patient Time: Total time managing care of this patient today ____ minutes. Procedures Date of Service Date of Service: 05/08/23 Arterial Line Size (Gauge): 20 Procedure Note Procedure Note: Please please see progress note regarding sacral wound exploration/evaluation.
[2023-05-08 17:43] LABS: Anion Gap 12 (12-20); Blood Urea Nitrogen 15 mg/dL (9-16); Calcium 8.2 mg/dL (8.4-10.2); Carbon Dioxide 26 mmol/L (22-29); Chloride 109 mmol/L (96-108); Creatinine Clr Calc Pharmacy 115.6; Estimated Glomerular Filt Rate > 60; Glucose Random 270 mg/dL (60-115); Sodium 144 mmol/L (135-145)
[2023-05-08 18:16] LABS: Glucose, Whole Blood 255 mg/dL (60-115)
[2023-05-08] MEDS: Doxycycline Hyclate 100 MG in 0.9 % Sodium Chloride 250 ML 166.67 MG IV (19:55)
[2023-05-08] MEDS: Norepinephrine Bitartrate/D5W 8 MG/250 ML PLAST..BAG 3.5 MG IV (23:44)
[2023-05-08 23:57] LABS: Glucose, Whole Blood 278 mg/dL (60-115)
[2023-05-09] VITALS (37 sets, daily range): BP systolic 91–124; BP diastolic 63–87; PULSE 65–88; RESP 12–20; TEMP 34.8–36.8; O2SAT 91–98; BMI 23.1
[2023-05-09] MEDS: KCl 20 mEq in 0.45% Sod 20 MEQ/1,000 ML IV.SOLN 42 MEQ IVCONT (04:07)
[2023-05-09] MEDS: metroNIDAZOLE/NS 500 MG/100 ML PIGGYBACK 100 MG IV ×3 (04:19→20:26)
--- NOTE | 2023-05-09 04:28 | PC.NURSE ---
Addendum entered by Cody Bernabe RN 05/09/23 04:44: EPISODES OF EYES OPEN/EYES DEVIATING UPWARD AND YAWNING MOTION Original Note: CARE ASSUMED 23:15...REMAINS INTUBATED/VCV VENT SUPPORT...SUCTIONED SMALL AMOUNT WHITE SPUTUM VIA ETT AND LARGER AMOUNTS CLEAR MUCOID SPUTUM ORALLY...REMAINS OFF SEDATION SINCE 10/2 AM PER SHIFT REPORT...(+) FORCEFUL GAG/COUGH REFLEXES....EXTREMETIES FLACCID...PUPILS 4-5MMG..OCASSIONALLY OPENS EYES BUT NOT TO COMMAND...EYES DEVIATE UP AND TO LEFT..ICU INTERIOR BLOCK WIRER PRESENT AND AWARE...SCLERA JAUNDICED...KENDRICK ORANGE URINE...MILD GENERALIZED EDEMA PRESENT...FLUID BALANCE > 13 LITERS (+)...MD AWARE....RIGHT RADIAL A-LINE D/C'D PER ICU INTERIOR BLOCK WIRER...SMALL BLISTER NOTED UNDERNEATH A-LINE HUB AND ANGIOCATH...DRESSINGS TO SACRUM/ MID-BACK/RIGHT CALF AND BILATERAL HEELS INTACT...LEVOPHED DRIP WEANED OFF....PASSED MULTIPLE LOOSE BROWN STOOLS... PRESENT AND DECLINED INSERTION OF RECTAL TUBE....RIGHT FEMORAL TLC BROWN PORT WITH EXCELLENT BLOOD RETURN...PER ICU INTERIOR BLOCK WIRER TO REVIEW AM PLATELET LEVEL BEFOR DECIDING ? NEW TLC SITE...
[2023-05-09 04:41] LABS: VBG Base Excess 5.3 mmol/L; VBG HCO3 27 mmol/L (22-26); VBG pCO2 31 mmHg; VBG pH 7.54 (7.32-7.43); VBG pO2 48 mmHg
[2023-05-09 05:01] LABS: Hematocrit 24.1 % (42.0-52.0); Hemoglobin 8.2 g/dl (14.0-18.0); Mean Corpuscular Hemoglobin 32.2 pg (27.0-33.0); Mean Corpuscular Volume 94.5 fL (80.0-98.0); Mean Platelet Volume 13.3 fL (9.4-12.4); NRBC Pct Auto 0.7 /100WBC (0.0-0.2); Red Blood Count 2.55 X10*6/uL (4.60-5.80); Red Cell Distribution Width 15.8 % (11.0-16.0); White Blood Count 8.4 X10*3/uL (4.8-10.8)
[2023-05-09 05:03] LABS: Platelet Count 19 X10*3/uL (160-400)
[2023-05-09 05:10] LABS: Ammonia 42 umol/L (13-55)
[2023-05-09 05:10] LABS: Venous Blood Gas Refer to POC result
[2023-05-09 05:19] LABS: Alanine Aminotransferase 36 U/L (0-40); Albumin Level 2.5 g/dL (3.5-5.0); Alkaline Phosphatase 335 U/L (39-117); Anion Gap 11 (12-20); Aspartate Amino Transferase 78 U/L (5-37); Bilirubin Total 11.8 mg/dL (0.0-1.0); Blood Urea Nitrogen 16 mg/dL (9-16); Calcium 8.2 mg/dL (8.4-10.2); Carbon Dioxide 26 mmol/L (22-29); Chloride 108 mmol/L (96-108); Creatinine Clr Calc Pharmacy 125.4; Estimated Glomerular Filt Rate > 60; Glucose Random 261 mg/dL (60-115); Magnesium 1.7 mg/dL (1.6-2.6); Phosphorus 1.5 mg/dL (2.7-4.5); Potassium 2.7 mmol/L (3.3-5.1); Sodium 142 mmol/L (135-145)
[2023-05-09 06:04] LABS: Glucose, Whole Blood 264 mg/dL (60-115)
[2023-05-09 06:11] LABS: INTERNATIONAL NORM RATIO 1.6 (0.9-1.1)
[2023-05-09] MEDS: Insulin Lispro 100 UNIT/ML 3 ML VIAL SUBCUT ×4 (06:12→23:47)
[2023-05-09] MEDS: Potassium Chloride Packet 20 MEQ PACKET 40 MEQ PO (06:12)
[2023-05-09] MEDS: Potassium Phosphate/NS 15 MMOL/250 ML PLAST..BAG 62.5 MMOL IV ×2 (06:12→12:29)
[2023-05-09 06:15] LABS: Partial Thromboplastin Time 36.9 SEC (26.0-36.4)
[2023-05-09 06:19] LABS: Band Neutrophils Percent 41 % (3-5); Large Platelet PRESENT; Lymphocytes Absolute Manual 0.8 X10*3/uL (1.2-4.9); Lymphocytes Percent Manual 9 % (20-40); Macrocytosis 1+ (5-14) /OIF; Metamyelocytes Absolute 0.1 X10*3/uL; Metamyelocytes Percent 1 %; Monocytes Absolute Manual 0.3 X10*3/uL (0.1-1.2); Monocytes Percent Manual 3 % (2-11); Myelocytes Absolute 0.1 X10*/uL; Myelocytes Percent 1 %; Neutrophils Absolute Manual 7.2 X10*3/uL (2.0-8.3); Neutrophils Percent Manual 45 % (45-73); Platelet Estimate DECREASED (NORMAL); Platelet Morphology Comment NORMAL; RBC Morphology NOTED
[2023-05-09 06:20] LABS: Basophilic Stippling 2+ (3-5) /OIF; Burr Cells 1+ (0-2) /OIF; Dohle Bodies PRESENT; Hypochromasia 1+ (5-14) /OIF; Pappenheimer Bodies PRESENT; Polychromasia 1+ (0-2) /OIF; Smudge Cells PRESENT; Target Cells 1+ (5-14) /OIF; Tear Drop Cells 1+ (0-2) /OIF; Toxic Granulation PRESENT
[2023-05-09] MEDS: Pantoprazole Sodium 40 MG/10 ML VIAL IVPUSH (07:59)
[2023-05-09] MEDS: Hydrocortisone Sod Succ/PF 100 MG VIAL IVPUSH ×3 (07:59→23:47)
[2023-05-09] MEDS: Sodium,Potassium Phosphates POWD.PACK 1 PACKET PO ×4 (08:02→20:26)
[2023-05-09] MEDS: Multivitamin TABLET 1 TAB PO (08:02)
[2023-05-09] MEDS: Thiamine HCL 100 MG TABLET PO (08:02)
[2023-05-09] MEDS: Folic Acid 1 MG TABLET PO (08:02)
[2023-05-09] MEDS: Chlorhexidine Gluc Oral Rinse 15 ML MOUTHWASH BUCCAL ×3 (08:02→20:26)
[2023-05-09] MEDS: Doxycycline Hyclate 100 MG in 0.9 % Sodium Chloride 250 ML 166.67 MG IV ×2 (08:14→19:46)
[2023-05-09] MEDS: levoFLOXacin/D5W 500 MG/100 ML PIGGYBACK 100 MG IV (08:22)
[2023-05-09] MEDS: vancomycin HCL 750 MG in 0.9 % Sodium Chloride 250 ML 265 MG IV ×2 (09:27→21:27)
--- NOTE | 2023-05-09 09:59 | MHC.CLN ---
F/U PT REMAINS INTUBATED AND SEDATED PT RECEIVING PROMOTE AT MAX GOAL RATE 65ML/HR WITH 120ML FREE WATER FLUSHES Q 6 HRS TO PROVIDE 1560KCALS (26.5KCALS/KG), 97.5G PROTEIN (1.6G/KG), 1789ML TOTAL WATER FROM FORMULA AND FLUSHES (30.4ML/KG) MONITOR TOLERANCE, RESIDUALS AND LYTES
[2023-05-09 12:07] LABS: Glucose, Whole Blood 332 mg/dL (60-115)
--- NOTE | 2023-05-09 13:44 | MHC.CM.PN ---
EMR REVIEWED. PT REMAINS INTUBATED AND SEDATED IN ICU. CM WILL CONTINUE TO FOLLOW FOR ANY CHANGE IN DC PLAN/NEEDS.
--- NOTE | 2023-05-09 14:00 | HO.WOUND ---
Wound Care Consult Daron was found on the floor at home for an unknown amount of time. Patient sustained multiple Deep tissue injuries. He does have a costa in place but is incontinent of stool at this time. Patient has an airloss mattress in place as well as offloading prevalon boots for his heels. Patient has a DTI on his sacrum/lower back region. Wound bed area is purple in color with a small open area where the skin started to lift on the more left of the wound. To the more right of the wound the skin is also blistered. Patient is also jaundice. Area measured 9cm x8.5cm x0.1cm. Oil emulsion gauze used to prevent the foam border from sticking to the blistered skin. Foam border applied over the oil emulsion gauze. On the mid back there is another DTI area. This area has a more ecchymotic area on the periphery of the wound. The central portion is purplish/maroon colored. Skin is also peeling of this area but has a more drainage coming from this wound. Not enough to support an alginate ag dressing. This area measured 11cm x 18cm x 0.1cm. A thin layer of zinc barrier cream applied over the area, and a layering had to be done with the foam borders to accommodate the size of this wound. There is a DTI on his right lateral calf. This area is an intact purplish blister. The area measures 4.4cm x 2.7cm. Foam border applied to keep area protected. There is a DTI on patient's left posterior heel. Intact purplish blister. Blister measuring 3.5cm x 3cm. Skin prepped these areas to help protect and harden skin. Foam border applied. There is also a DTI on his right lateral heel. This is also a intact purplish blister. The area is measuring 4cm x 4cm. Skin prepped area and covered with a foam border. Recommendation: For the sacrum/lower back, until wound demarcates, apply the oil emulsion gauze (cutercerin) to the area first to help prevent skin sticking to the dressing and cover with the foam border. May change dressing daily to every other day depending on the drainage from the open area. Would start off with every other day and see what the dressing looks like. For the mid back, cleanse area with normal saline or sea clense wound cleanser. Apply a thin amount of zinc barrier cream to the area for now until the wound demarcates. Cover with a foam border. Because of the size, may have to overlap foam borders. Again depending on the drainage, may change dressing daily to every other day. For the right lateral calf, continue to apply the foam border to the area every other day to protect blister. For the bilateral heels, skin prep the blistered areas to help harden and protect skin. Apply foam borders to both heels. Continue to reposition patient frequently and use prevalon heel offloading boots. Protein if able should be increased to help with would healing. If there are any changes in the wounds or questions, please feel free to reconsult wound care.
[2023-05-09 15:30] LABS: A. Phagocytphilium DNA,RT-PCR NOT DETECTED (NOT DETECTED); Babesia Microti DNA, RT-PCR NOT DETECTED (NOT DETECTED); Borrelia Miyamotoi,DNA RT-PCR NOT DETECTED (NOT DETECTED); E.Chaffeensis DNA RT-PCR NOT DETECTED (NOT DETECTED); Lyme(Borrelia ssp)DNA RT-PCR NOT DETECTED (NOT DETECTED)
[2023-05-09 18:10] LABS: Glucose, Whole Blood 350 mg/dL (60-115)
[2023-05-09 19:30] LABS: Vancomycin Trough 15.8 mcg/mL (10.0-20.0)
[2023-05-09 23:39] LABS: Glucose, Whole Blood 288 mg/dL (60-115)
[2023-05-09 23:50] LABS: Hematocrit 19.4 % (42.0-52.0)
[2023-05-10] VITALS (29 sets, daily range): BP systolic 104–129; BP diastolic 77–89; PULSE 60–86; RESP 13–20; TEMP 32.5–37.2; O2SAT 92–99; BMI 22.8
[2023-05-10] MEDS: KCl 20 mEq in 0.45% Sod 20 MEQ/1,000 ML IV.SOLN 42 MEQ IVCONT (03:51)
[2023-05-10] MEDS: metroNIDAZOLE/NS 500 MG/100 ML PIGGYBACK 100 MG IV ×3 (04:53→20:27)
[2023-05-10 05:20] LABS: VBG HCO3 25 mmol/L (22-26); VBG pCO2 26 mmHg; VBG pH 7.59 (7.32-7.43); VBG pO2 93 mmHg
[2023-05-10 05:21] LABS: Venous Blood Gas Refer to POC result
[2023-05-10 05:36] LABS: MANUAL DIFF FLAG NO
[2023-05-10 05:37] LABS: Glucose, Whole Blood 278 mg/dL (60-115)
[2023-05-10 05:39] LABS: Basophils Percent Auto 0.2 % (0-2); Hematocrit 23.4 % (42.0-52.0); Imm Gran Abs Auto 0.39 X10*3/uL (0.00-0.03); Imm Gran Pct Auto 4.5 % (0.0-0.4); Lymphocytes Percent Auto 11.1 % (20-40); Mean Corpuscular HGB Conc 34.2 g/dl (31.0-36.0); Mean Corpuscular Hemoglobin 31.9 pg (27.0-33.0); Mean Corpuscular Volume 93.2 fL (80.0-98.0); Mean Platelet Volume 12.9 fL (9.4-12.4); Monocytes Absolute Auto 0.8 X10*3/uL (0.1-1.2); Monocytes Percent Auto 8.8 % (2-11); NRBC Pct Auto 1.2 /100WBC (0.0-0.2); Neutrophils Absolute Auto 6.5 x10*3/uL (2.0-8.3); Neutrophils Percent Auto 75.4 % (45-73); Red Blood Count 2.51 X10*6/uL (4.60-5.80); Red Cell Distribution Width 15.3 % (11.0-16.0); White Blood Count 8.6 X10*3/uL (4.8-10.8)
[2023-05-10 05:40] LABS: Platelet Count 31 X10*3/uL (160-400)
[2023-05-10] MEDS: Insulin Lispro 100 UNIT/ML 3 ML VIAL SUBCUT ×3 (05:41→18:08)
[2023-05-10 05:55] LABS: Alanine Aminotransferase 40 U/L (0-40); Albumin Level 2.2 g/dL (3.5-5.0); Alkaline Phosphatase 490 U/L (39-117); Anion Gap 13 (12-20); Aspartate Amino Transferase 64 U/L (5-37); Bilirubin Total 10.1 mg/dL (0.0-1.0); Blood Urea Nitrogen 16 mg/dL (9-16); Carbon Dioxide 21 mmol/L (22-29); Chloride 113 mmol/L (96-108); Creatinine Clr Calc Pharmacy 145.9; Estimated Glomerular Filt Rate > 60; Glucose Random 297 mg/dL (60-115); Magnesium 1.7 mg/dL (1.6-2.6); Phosphorus 2.6 mg/dL (2.7-4.5); Potassium 3.1 mmol/L (3.3-5.1); Sodium 144 mmol/L (135-145); Total Protein 3.8 g/dL (6.5-8.0)
--- NOTE | 2023-05-10 07:48 | HE.PHANOTE ---
VANCOMYCIN DOSE ADJUSTMENT BASED ON SCR DOSE CONTINUED AT 750 Q 12H. NEXT TROUGH 05/11 @ 0700
[2023-05-10] MEDS: Chlorhexidine Gluc Oral Rinse 15 ML MOUTHWASH BUCCAL ×3 (08:19→20:37)
[2023-05-10] MEDS: Hydrocortisone Sod Succ/PF 100 MG VIAL IVPUSH ×2 (08:19→15:44)
[2023-05-10] MEDS: Folic Acid 1 MG TABLET PO (08:20)
[2023-05-10] MEDS: Thiamine HCL 100 MG TABLET PO (08:20)
[2023-05-10] MEDS: Multivitamin TABLET 1 TAB PO (08:20)
[2023-05-10] MEDS: Sodium,Potassium Phosphates POWD.PACK 1 PACKET PO ×4 (08:20→20:25)
[2023-05-10] MEDS: levoFLOXacin/D5W 500 MG/100 ML PIGGYBACK 100 MG IV (08:32)
[2023-05-10] MEDS: vancomycin HCL 750 MG in 0.9 % Sodium Chloride 250 ML 265 MG IV ×2 (09:22→20:51)
--- NOTE | 2023-05-10 12:22 | PM.CCPN ---
Subjective Subjective Date of Service: 05/09/23 Interval History: A 42-year-old male longstanding alcoholic with psychiatric issues as well who was not in communication for 3 days with his family in when they came to see and he was already unresponsive on the floor for an unknown but probably considerable amount of time when he came in he was profoundly hypothermic at 84 degrees and hypothermic hypotensive and bradycardic as well as well as hypoxic respiratory failure he has been intubated rewarmed fluid resuscitated blood pressure supported with with inotropes with what appears to be extensive bilateral aspiration pneumonitis covered with broad-spectrum antibiotics but when I came on because he had a necrotic wound which fortunately was was seen by surgery open and was only skin deep there is no deep tissue involvement so it was packed and and covered and it is now at least 4 days off of all sedation and he has no responsiveness night even to deep pain at this point we do have some the no brainstem mechanism because we do did develop some adeno cough and gag but is not much else to report is no evidence of any return of cognitive function he has got the 4 extremity for flaccid and other organs have recovered the renal function is as recovered but persistent hyperglycemia in the insulin in 0 continues to create hypokalemia which we replete every day but he remains in normal sinus rhythm stable in the 60s pressure stable at 1 20/85 on minimal FiO2 and with minimal minute ventilatory requirements on the ventilator is oxygen saturations are 95% lab work is finally stabilized with hemoglobin in the 8 and he is actually I think beginning to turn the corner on the DIC where the white count and red count and platelets are stabilizing at least and the there is some improvement in his prothrombin time as well as PTT Critical Care Time (minutes): 45 Physical Exam Vital Signs: Vital Signs: Last Vital Signs Temp 97.5 F 05/10/23 11:00 Pulse 74 05/10/23 11:00 Resp 20 05/10/23 11:00 BP 114/82 05/10/23 10:00 Pulse Ox 92 05/10/23 11:00 O2 Del Method Mechanical Ventil ation 05/10/23 11:00 O2 Flow Rate 21 05/07/23 03:00 FiO2 21 05/10/23 11:00 BMI result Body Mass Index 22.8 So again is no response to pain we do have some brainstem reflexes only and he has no longer been febrile Good bilateral carotid upstrokes no bruits no neck vein distension bedside echo with preserved LV and RV function Lungs actually clear with no adventitious sounds Abdomen soft with no organomegaly He has got 2 necrotic wounds upper back which is very superficial and deeper almost full-thickness skin area of necrosis which was open and packed and no weeping no cellulitis that is over his buttocks Objective Data Labs 05/10/23 05:10 05/10/23 05:10 Labs: Laboratory Results - last 24 hr 05/07/23 05/07/23 05/09/23 05:05 08:43 18:06 WBC RBC Hgb Hct 19.4 L* MCV MCH MCHC RDW Plt Count MPV Immature Gran % (Auto) Neut % (Auto) Lymph % (Auto) Granite % (Auto) Eos % (Auto) Baso % (Auto) Lymph # (Auto) Granite # (Auto) Eos # (Auto) Baso # (Auto) Abs Immat Gran (auto) Absolute Neuts (auto) Absolute Nucleated RBC Nucleated RBC % (auto) VBG pH VBG pCO2 VBG pO2 VBG HCO3 VBG O2 Saturation VBG Base Excess Sodium Potassium Chloride Carbon Dioxide Anion Gap BUN Creatinine Estim Creat Clear Calc Estimated GFR POC Glucose 350 H* Random Glucose Calcium Phosphorus Magnesium Total Bilirubin AST ALT Alkaline Phosphatase Total Protein Albumin Vancomycin Trough A.phagocytophil DNA PCR NOT DETECTED Babesia microti DNA PCR NOT DETECTED Borrelia sp DNA (PCR) NOT DETECTED Borrelia miyamotoi (PCR) NOT DETECTED E.chaffeensis DNA (PCR) NOT DETECTED Tick-borne Disease PCR SEE NOTE 05/09/23 05/09/23 05/10/23 19:09 23:28 05:10 WBC 8.6 RBC 2.51 L Hgb 8.0 L Hct 23.4 L MCV 93.2 MCH 31.9 MCHC 34.2 RDW 15.3 Plt Count 31 L D MPV 12.9 H Immature Gran % (Auto) 4.5 H Neut % (Auto) 75.4 H Lymph % (Auto) 11.1 L Granite % (Auto) 8.8 Eos % (Auto) 0.0 Baso % (Auto) 0.2 Lymph # (Auto) 1.0 L Granite # (Auto) 0.8 Eos # (Auto) 0.0 Baso # (Auto) 0.0 Abs Immat Gran (auto) 0.39 H Absolute Neuts (auto) 6.5 Absolute Nucleated RBC 0.100 H Nucleated RBC % (auto) 1.2 H VBG pH VBG pCO2 VBG pO2 VBG HCO3 VBG O2 Saturation VBG Base Excess Sodium 144 Potassium 3.1 L Chloride 113 H Carbon Dioxide 21 L Anion Gap 13 BUN 16 Creatinine 0.61 Estim Creat Clear Calc 145.9 Estimated GFR > 60 POC Glucose 288 H Random Glucose 297 H Calcium 8.0 L Phosphorus 2.6 L Magnesium 1.7 Total Bilirubin 10.1 H AST 64 H ALT 40 Alkaline Phosphatase 490 H Total Protein 3.8 L Albumin 2.2 L Vancomycin Trough 15.8 A.phagocytophil DNA PCR Babesia microti DNA PCR Borrelia sp DNA (PCR) Borrelia miyamotoi (PCR) E.chaffeensis DNA (PCR) Tick-borne Disease PCR 05/10/23 05/10/23 05/10/23 05:14 05:34 11:26 WBC RBC Hgb Hct MCV MCH MCHC RDW Plt Count MPV Immature Gran % (Auto) Neut % (Auto) Lymph % (Auto) Granite % (Auto) Eos % (Auto) Baso % (Auto) Lymph # (Auto) Granite # (Auto) Eos # (Auto) Baso # (Auto) Abs Immat Gran (auto) Absolute Neuts (auto) Absolute Nucleated RBC Nucleated RBC % (auto) VBG pH 7.59 H VBG pCO2 26 VBG pO2 93 VBG HCO3 25 VBG O2 Saturation 99.0 VBG Base Excess 4.0 Sodium Potassium Chloride Carbon Dioxide Anion Gap BUN Creatinine Estim Creat Clear Calc Estimated GFR POC Glucose 278 H 305 H Random Glucose Calcium Phosphorus Magnesium Total Bilirubin AST ALT Alkaline Phosphatase Total Protein Albumin Vancomycin Trough A.phagocytophil DNA PCR Babesia microti DNA PCR Borrelia sp DNA (PCR) Borrelia miyamotoi (PCR) E.chaffeensis DNA (PCR) Tick-borne Disease PCR Microbiology Microbiology Results: Microbiology 05/05/23 16:20 Blood - Venous Blood Culture - Preliminary Clostridium sordellii Gram positive dmitri 05/05/23 15:09 Blood - Venous Blood Culture - Preliminary No growth after 48 hours. 05/05/23 21:13 Sputum - Induced Gram Stain - Final 05/05/23 21:13 Sputum - Induced Sputum Culture - Final Progress Note: A&P Assessment and plan (1) Pressure ulcers of skin of multiple topographic sites: Status: Acute (2) Neutropenia: Status: Acute (3) Pancytopenia: Status: Acute (4) Hemolytic anemia associated with infection: Status: Acute (5) DIC (disseminated intravascular coagulation): Status: Acute (6) Bradycardia with 41-50 beats per minute: Status: Acute (7) Acute metabolic encephalopathy: Status: Acute (8) Aspiration pneumonia: Status: Acute (9) Unresponsive: Status: Acute (10) Pneumonia: Status: Acute (11) Septic shock: Status: Acute (12) Hypothermia: Status: Acute (13) Hypoglycemia associated with diabetes: Status: Acute Plan So antibiotics will remain the same to include Levaquin and Flagyl and I am thrilled that we add the Flagyl because he was growing from the blood class Clostridium sordelli and a Gram-positive dmitri and he had resolution at least 2 days earlier of his elevated lactic acid so he has seems to have better systemic circulation skin colored begun to normalize no further acrocyanosis it seems that were are are he no platelets are plateauing and is early resolution of his coagulopathy so the DIC is resolving renal insufficiency is resolved yet he remains severely encephalopathic with no signs of Aleta recovery so we are having an EEG done this morning hopefully results soon so we can help to prognosticate but my preliminary look at it it seems to be very dysfunctional there is definitely no seizure activity but we await neurology's opinion Quality Stroke Does the patient have a stroke diagnosis?: No VTE Prior VTE?: No VTE Risk Level:: Medical - moderate - high VTE Device Contraindication: N/A - Device Ordered VTE Drug Contraindication: Treatment Not Tolerated
--- NOTE | 2023-05-10 12:43 | PM.CCPN ---
Subjective Subjective Date of Service: 05/10/23 Interval History: 42-year-old chronic alcoholic with underlying psychiatric issues as well who after 3 days of no communication with the family was found in his apartment by the family to be face down and presented hypothermic hypotensive of course and bradycardic definitely in severe shock requiring very aggressive fluid in inotropics resuscitation as well as rewarming and given the extensive bilateral aspiration picture was treated as a septic In the culture in process he grew from his blood 2 g positive dmitri organisms the anaerobic is juan is Clostridium sore deli the other Gram-positive dmitri is a robotic and had has not yet been speciated and all the organ involvement and complications such as DIC acute renal insufficiency etc. all have resolved today his platelet count is finally picking up on its own that 33,000 no transfusion required coagulopathy is repaired but he still remains completely unresponsive even to deep pain so he remains in coma just demonstrating some brainstem reflexes he did have an opening exploration and debridement of the necrotic pressure sore on his buttock that was only skin deep nothing of the deep nature medically doing well but EEG indicating of course severe generalized encephalopathy and 4 days off of all sedation and he has not yet awakened Critical Care Time (minutes): 35 Physical Exam Vital Signs: Vital Signs: Last Vital Signs Temp 97.0 F 05/10/23 12:00 Pulse 62 05/10/23 12:00 Resp 14 05/10/23 12:00 BP 120/85 05/10/23 12:00 Pulse Ox 96 05/10/23 12:00 O2 Del Method Mechanical Ventil ation 05/10/23 12:00 O2 Flow Rate 21 05/07/23 03:00 FiO2 21 05/10/23 12:00 BMI result Body Mass Index 22.8 Unresponsive to deep pain has he been diffusely flaccid no evidence stents of leave seizure activity 90 even by EEG Abdomen soft no organomegaly tolerating his feedings Lungs clear without adventitious sounds Heart bedside echo class 1 LV function Objective Data Labs 05/10/23 05:10 05/10/23 05:10 Labs: Laboratory Results - last 24 hr 05/07/23 05/07/23 05/09/23 05:05 08:43 18:06 WBC RBC Hgb Hct 19.4 L* MCV MCH MCHC RDW Plt Count MPV Immature Gran % (Auto) Neut % (Auto) Lymph % (Auto) [place] % (Auto) Eos % (Auto) Baso % (Auto) Lymph # (Auto) [place] # (Auto) Eos # (Auto) Baso # (Auto) Abs Immat Gran (auto) Absolute Neuts (auto) Absolute Nucleated RBC Nucleated RBC % (auto) VBG pH VBG pCO2 VBG pO2 VBG HCO3 VBG O2 Saturation VBG Base Excess Sodium Potassium Chloride Carbon Dioxide Anion Gap BUN Creatinine Estim Creat Clear Calc Estimated GFR POC Glucose 350 H* Random Glucose Calcium Phosphorus Magnesium Total Bilirubin AST ALT Alkaline Phosphatase Total Protein Albumin Vancomycin Trough A.phagocytophil DNA PCR NOT DETECTED Babesia microti DNA PCR NOT DETECTED Borrelia sp DNA (PCR) NOT DETECTED Borrelia miyamotoi (PCR) NOT DETECTED E.chaffeensis DNA (PCR) NOT DETECTED Tick-borne Disease PCR SEE NOTE 05/09/23 05/09/23 05/10/23 19:09 23:28 05:10 WBC 8.6 RBC 2.51 L Hgb 8.0 L Hct 23.4 L MCV 93.2 MCH 31.9 MCHC 34.2 RDW 15.3 Plt Count 31 L D MPV 12.9 H Immature Gran % (Auto) 4.5 H Neut % (Auto) 75.4 H Lymph % (Auto) 11.1 L [place] % (Auto) 8.8 Eos % (Auto) 0.0 Baso % (Auto) 0.2 Lymph # (Auto) 1.0 L [place] # (Auto) 0.8 Eos # (Auto) 0.0 Baso # (Auto) 0.0 Abs Immat Gran (auto) 0.39 H Absolute Neuts (auto) 6.5 Absolute Nucleated RBC 0.100 H Nucleated RBC % (auto) 1.2 H VBG pH VBG pCO2 VBG pO2 VBG HCO3 VBG O2 Saturation VBG Base Excess Sodium 144 Potassium 3.1 L Chloride 113 H Carbon Dioxide 21 L Anion Gap 13 BUN 16 Creatinine 0.61 Estim Creat Clear Calc 145.9 Estimated GFR > 60 POC Glucose 288 H Random Glucose 297 H Calcium 8.0 L Phosphorus 2.6 L Magnesium 1.7 Total Bilirubin 10.1 H AST 64 H ALT 40 Alkaline Phosphatase 490 H Total Protein 3.8 L Albumin 2.2 L Vancomycin Trough 15.8 A.phagocytophil DNA PCR Babesia microti DNA PCR Borrelia sp DNA (PCR) Borrelia miyamotoi (PCR) E.chaffeensis DNA (PCR) Tick-borne Disease PCR 05/10/23 05/10/23 05/10/23 05:14 05:34 11:26 WBC RBC Hgb Hct MCV MCH MCHC RDW Plt Count MPV Immature Gran % (Auto) Neut % (Auto) Lymph % (Auto) [place] % (Auto) Eos % (Auto) Baso % (Auto) Lymph # (Auto) [place] # (Auto) Eos # (Auto) Baso # (Auto) Abs Immat Gran (auto) Absolute Neuts (auto) Absolute Nucleated RBC Nucleated RBC % (auto) VBG pH 7.59 H VBG pCO2 26 VBG pO2 93 VBG HCO3 25 VBG O2 Saturation 99.0 VBG Base Excess 4.0 Sodium Potassium Chloride Carbon Dioxide Anion Gap BUN Creatinine Estim Creat Clear Calc Estimated GFR POC Glucose 278 H 305 H Random Glucose Calcium Phosphorus Magnesium Total Bilirubin AST ALT Alkaline Phosphatase Total Protein Albumin Vancomycin Trough A.phagocytophil DNA PCR Babesia microti DNA PCR Borrelia sp DNA (PCR) Borrelia miyamotoi (PCR) E.chaffeensis DNA (PCR) Tick-borne Disease PCR Microbiology Microbiology Results: Microbiology 05/05/23 16:20 Blood - Venous Blood Culture - Preliminary Clostridium sordellii Gram positive dmitri 05/05/23 15:09 Blood - Venous Blood Culture - Preliminary No growth after 48 hours. 05/05/23 21:13 Sputum - Induced Gram Stain - Final 05/05/23 21:13 Sputum - Induced Sputum Culture - Final Progress Note: A&P Assessment and plan (1) Encephalopathy: Status: Acute (2) Pressure ulcers of skin of multiple topographic sites: Status: Acute (3) Neutropenia: Status: Acute (4) Pancytopenia: Status: Acute (5) Hemolytic anemia associated with infection: Status: Acute (6) DIC (disseminated intravascular coagulation): Status: Acute (7) Bradycardia with 41-50 beats per minute: Status: Acute (8) Acute metabolic encephalopathy: Status: Acute (9) Aspiration pneumonia: Status: Acute (10) Unresponsive: Status: Acute (11) Pneumonia: Status: Acute (12) Septic shock: Status: Acute (13) Hypothermia: Status: Acute (14) Hypoglycemia associated with diabetes: Status: Acute Plan So plan is maintain antibiotics as above following tomorrow's neuro exam and that being day 5 off of sedation all have discussion with the family revolving around the the poor prognosis for recovery of the encephalopathy Quality Stroke Does the patient have a stroke diagnosis?: No VTE Prior VTE?: No VTE Risk Level:: Medical - moderate - high VTE Device Contraindication: N/A - Device Ordered VTE Drug Contraindication: Treatment Not Tolerated
--- NOTE | 2023-05-10 14:13 | PM.NEUROCN ---
History of Present Illness Data of Consult Service Date: 05/10/23 Primary Care Provider: Beena Melo MD [facility] Reason for consult: Encephalopathy 42-year-old male with underlying history of pancreatitis, type 1 diabetes, schizophrenia, bipolar, PTSD, depression, anxiety, alcoholism, prescription med abuse, previous intubations due to overdose (sleeping pills), medical noncompliance. ?He was found unresponsive at home and was brought to hospital. This consultation was rec requested to comment on his mental status and rule out seizures. He was unable to provide any history as he was intubated. He was not sedated when I saw him. 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 Mother Diabetes Surgical History Surgical History No pertinent past surgical history Social History Social History Household Members: Unknown / Unable to assess Household Members Other:: with dog Housing: House Do you presently have visiting nurse or other home services: No Unable to assess alcohol history related to: Unable to respond Alcohol intake: current Alcohol intake frequency: 3 or more drinks per day Alcohol type: hard liquor Patient Tobacco Use Status: Never used Tobacco e-Cigarette/Vaping Use: Never Used Second Hand Smoke Exposure: No Use of substances other than those prescribed or required for medical reasons: Unknown Currently Displaying Signs/Symptoms of Drug Intoxication Withdrawal: No Advance Directives: Yes Advance Directives on File: Yes Advance Directives Date on File: 02/07/22 Do you have thoughts of harming others: None Do you have a plan to hurt others: No Plan Recently lost weight without trying: Unsure Nutrition Risks: Dental problems and Poor intake 0-25% >4 days Poor oral hygiene: Yes service: No Current occupational status: unemployed Meds Allergies Allergy/AdvReac Type Severity Reaction Status Date / Time meropenem [MEROPENEM] Allergy Unknown SWELLING Verified 09/25/22 22:45 penicillin G procaine Allergy Unknown itching Verified 09/25/22 22:45 Penicillins [PENICILLINS] Allergy Unknown SWELLING Verified 09/25/22 22:45 Active Medications: Current Medications Chlorhexidine Gluconate (Chlorhexidine Gluc Oral Rinse 15 Ml Mouthwash) 15 ml BUCCAL TID [facility] Last Admin: 05/10/23 08:19 Dose: 15 ml Dextrose (Dextrose 50 % 25 Gm/50 Ml Syringe) 25 gm IVPUSH Q15M PRN; Protocol PRN Reason: per Hypoglycemia Standing Ord. Folic Acid (Folic Acid 1 Mg Tablet) 1 mg PO DAILY [facility] Last Admin: 05/10/23 08:20 Dose: 1 mg Glucose (Glucose Gel 15 Gm Gel..Gram.) 15 gm PO Q15M PRN; Protocol PRN Reason: per Hypoglycemia Standing Ord. Hydrocortisone Sodium Succinate (Hydrocortisone Sod Succ/Pf 100 Mg Vial) 100 mg IVPUSH Q8H [facility] Last Admin: 05/10/23 08:19 Dose: 100 mg Norepinephrine Bitartrate (Levophed) 8 mg in 250 mls @ 0 mls/hr IV .Q0M [facility]; Protocol Last Titration: 05/09/23 12:30 Dose: Infused Vasopressin (Vasostrict) 20 unit in 100 mls @ 12 mls/hr IV .Q8H20M [facility] Last Admin: 05/10/23 12:08 Dose: Not Given Midazolam HCl (Versed) 50 mg in 50 mls @ 1 mls/hr IVCONT .Q24H [facility] Last Admin: 05/09/23 18:15 Dose: Not Given Metronidazole (Flagyl) 500 mg in 100 mls @ 100 mls/hr IV Q8H [facility] Last Infusion: 05/10/23 13:37 Dose: Infused Doxycycline Hyclate 100 mg/ (Sodium Chloride) 250 mls @ 166.67 mls/hr IV Q12H [facility] Last Infusion: 05/10/23 10:05 Dose: Infused Levofloxacin (Levaquin) 500 mg in 100 mls @ 100 mls/hr IV Q24H [facility] Last Infusion: 05/10/23 09:35 Dose: Infused Vancomycin HCl 750 mg/ Sodium (Chloride) 265 mls @ 265 mls/hr IV Q12H [facility] Last Infusion: 05/10/23 10:56 Dose: Infused Insulin Human Lispro (Insulin Lispro 100 Unit/Ml 3 Ml Vial) 0 unit SUBCUT Q6H [facility]; Protocol Last Admin: 05/10/23 12:27 Dose: 8 unit Multivitamins/Vitamin C (Multivitamin Tablet) 1 tab PO DAILY [facility] Last Admin: 05/10/23 08:20 Dose: 1 tab Pharmacy Consult (Consult Rx Vancomycin Dosing) 1 each MISCELLANE DAILY PRN PRN Reason: Consult order Potassium Phos/Sodium Phos (Sodium,Potassium Phosphates Powd.Pack) 1 packet PO QID [facility] Last Admin: 05/10/23 12:27 Dose: 1 packet Thiamine HCl (Thiamine Hcl 100 Mg Tablet) 100 mg PO DAILY [facility] Last Admin: 05/10/23 08:20 Dose: 100 mg Home Medications Medication Instructions Recorded Confirmed Last Taken Type lamotrigine 200 mg tablet 200 mg PO BID 01/28/22 05/05/23 1 Month Ago History ~02/20/23 citalopram 40 mg tablet 40 mg PO DAILY 02/08/22 05/05/23 1 Month Ago History ~02/20/23 thiamine HCl (vitamin B1) 100 mg 100 mg PO DAILY 02/08/22 05/05/23 1 Month Ago History tablet ~02/20/23 zolpidem 5 mg tablet 1 tab PO BEDTIME PRN Sleep 03/14/22 05/05/23 1 Month Ago History ~02/20/23 quetiapine 400 mg tablet 1 tab PO BEDTIME 06/12/22 05/05/23 1 Month Ago History ~02/20/23 multivitamin (Daily Multi-Vitamin 1 tab PO DAILY 09/26/22 05/05/23 1 Month Ago History tablet) ~02/20/23 dextrose 40 % oral gel (Glutose-15) 1 ea PO DAILY PRN Hypoglycemia 03/23/23 05/05/23 1 Month Ago History ~02/20/23 Physical Exam Vital Signs: Vital Signs: Last Vital Signs Temp 97.0 F 05/10/23 13:00 Pulse 66 05/10/23 13:00 Resp 20 05/10/23 13:00 BP 129/89 05/10/23 13:00 Pulse Ox 94 05/10/23 13:00 O2 Del Method Mechanical Ventil ation 05/10/23 13:00 O2 Flow Rate 21 05/07/23 03:00 FiO2 21 05/10/23 13:00 BMI result Body Mass Index 22.8 Neuro: Other: Intubated though not sedated. He was unresponsive to verbal stimuli. With pain, he was purposefully withdrawing. There was no abnormal posturing otherwise. Pupils were midline reactive to light with roving eye motions. Face seems symmetrical. Gag reflex was present. Deep tendon reflexes were absent with flexor plantars. Results Labs 05/10/23 05:10 05/10/23 05:10 Labs: Short CBC 05/07/23 05/10/23 Range/Units 05:05 05:10 WBC 8.6 (4.8-10.8) X10*3/uL Hgb 8.0 L (14.0-18.0) g/dl Hct 19.4 L* 23.4 L (42.0-52.0) % Plt Count 31 L D (160-400) X10*3/uL BMP 05/10/23 05:10 Sodium 144 Potassium 3.1 L Chloride 113 H Carbon Dioxide 21 L BUN 16 Creatinine 0.61 Calcium 8.0 L Liver Function 05/10/23 Range/Units 05:10 Total Bilirubin 10.1 H (0.0-1.0) mg/dL AST 64 H (5-37) U/L ALT 40 (0-40) U/L Alkaline Phosphatase 490 H (39-117) U/L Albumin 2.2 L (3.5-5.0) g/dL Head CT revealed [id number] diffuse cerebral atrophy for his age and EEG did not reveal any epileptic tendency. Microbiology Microbiology Results: Microbiology 05/05/23 16:20 Blood - Venous Blood Culture - Preliminary Clostridium sordellii Gram positive dimtri 05/05/23 15:09 Blood - Venous Blood Culture - Preliminary No growth after 48 hours. 05/05/23 21:13 Sputum - Induced Gram Stain - Final 05/05/23 21:13 Sputum - Induced Sputum Culture - Final Assessment and Plan (1) Encephalopathy: Status: Acute 42 years old man with significant underlying neuropsychiatric and psychological comorbidities was found unresponsive at home. At this time his examination was suggestive of bihemispheric dysfunction with possibility of anoxic injury, as there was no clear-cut metabolic abnormality to explain it. His exam an EEG did not suggest seizures. I recommend continuing treatment of metabolic abnormalities, hematological abnormalities, and symptomatic treatment. Time Spent With Patient Time: Total time managing care of this patient today ____ minutes. Procedures Date of Service Date of Service: 05/10/23 Arterial Line Size (Gauge): 20
--- NOTE | 2023-05-10 15:18 | MHC.CM.PN ---
Pt intubated and continuing care in ICU: found at home unresponsive and profoundly hypothermic: no return of neuro functioning: ? anoxic brain injury being considered. CM to follow for finalization of d/c needs as pt's functional abilities are unable to be determined.
--- NOTE | 2023-05-10 18:44 | HO.SKINPHOTO ---
Location: Category: Stage: Length: Width: Depth: cm Coccyx wound Location: Category: Stage: Length: Width: Depth: cm Location: Category: Stage: Length: Width: Depth: cm Location: Category: Stage: Length: Width: Depth: cm Location: Category: Stage: Length: Width: Depth: cm Location: Category: Stage: Length: Width: Depth: cm
[2023-05-11] VITALS (30 sets, daily range): BP systolic 112–157; BP diastolic 84–98; PULSE 53–86; RESP 14–18; TEMP 34.3–36.6; O2SAT 90–99; BMI 24.5
[2023-05-11] MEDS: Insulin Lispro 100 UNIT/ML 3 ML VIAL SUBCUT (00:23)
[2023-05-11] MEDS: Hydrocortisone Sod Succ/PF 100 MG VIAL IVPUSH ×3 (00:23→18:03)
[2023-05-11 05:44] LABS: Alanine Aminotransferase 55 U/L (0-40); Albumin Level 2.2 g/dL (3.5-5.0); Alkaline Phosphatase 617 U/L (39-117); Anion Gap 13 (12-20); Aspartate Amino Transferase 86 U/L (5-37); Bilirubin Total 9.1 mg/dL (0.0-1.0); Blood Urea Nitrogen 16 mg/dL (9-16); Calcium 8.2 mg/dL (8.4-10.2); Carbon Dioxide 19 mmol/L (22-29); Chloride 115 mmol/L (96-108); Creatinine Clr Calc Pharmacy 181.7; Estimated Glomerular Filt Rate > 60; Glucose Random 278 mg/dL (60-115); Magnesium 1.8 mg/dL (1.6-2.6); Phosphorus 2.8 mg/dL (2.7-4.5); Potassium 3.5 mmol/L (3.3-5.1); Sodium 143 mmol/L (135-145); Total Protein 4.1 g/dL (6.5-8.0)
--- NOTE | 2023-05-11 07:31 | HE.PHANOTE ---
VANCO DOSE ADJUSTMENT BASED ON SCR OF 13.8 DOSE INCREASED TO 1000MG Q 12. Next trough 05/12 @ 1900
[2023-05-11] MEDS: Chlorhexidine Gluc Oral Rinse 15 ML MOUTHWASH BUCCAL ×3 (08:47→21:06)
[2023-05-11] MEDS: Folic Acid 1 MG TABLET PO (08:48)
[2023-05-11] MEDS: Thiamine HCL 100 MG TABLET PO (08:48)
[2023-05-11] MEDS: Multivitamin TABLET 1 TAB PO (08:48)
[2023-05-11] MEDS: levoFLOXacin/D5W 500 MG/100 ML PIGGYBACK 100 MG IV (08:54)
--- NOTE | 2023-05-11 12:47 | PC.NURSE ---
provider made aware of scant urine output
--- NOTE | 2023-05-11 13:27 | MHC.CM.PN ---
Pt on ventilatory support: no return of any neurological function: day 5 of no sedation: MD to have discussion w/family about goals of care given his prognosis and only brainstem functioning at this time. CM to follow - no difinitive d/c plan in place at this time.
--- NOTE | 2023-05-11 20:32 | PM.CCPN ---
Subjective Subjective Date of Service: 05/11/23 Interval History: 42-year-old male who was intubated in the emergency room after being found for an unknown amount of time unresponsive on his floor markedly hypothermic hypotensive bradycardic clearly the no in shock a portion of which could easily have been septic but he had multi organ failure at the same time and was on will wide open 2 pressor support system and has been weaned off all of that support with resolution of cardiac lung and renal issues is clinically well perfused metabolically completely normal and almost 5 days off of sedation and has a very and encephalopathic EEG and remains could comatose completely unresponsive to deep pain just has preservation of some of his brainstem function and had extensive discussion with family primarily the mother with with a friend in cylinder machine operator and explained the know that the prognosis is as looking poorly but the no certainly given his young age we will continue to watch several more days through the weekend and if again no signs of of any early cognitive function return we would repeat EEG and if it were to remain as dysfunctional it was certainly imply a grave prognosis for meaningful recovery and the family understood and we asked if there were any questions hopefully responded to those Critical Care Time (minutes): 35 Physical Exam Vital Signs: Vital Signs: Last Vital Signs Temp 96.4 F L 05/11/23 20:00 Pulse 81 05/11/23 20:00 Resp 15 05/11/23 20:00 BP 124/88 05/11/23 20:00 Pulse Ox 99 05/11/23 20:00 O2 Del Method Mechanical Ventil ation 05/11/23 20:00 O2 Flow Rate 21 05/07/23 03:00 FiO2 21 05/11/23 20:00 BMI result Body Mass Index 24.5 Un there is no deep tissue involvement responsive individual on the ventilator no over driving he is fully ventilator dependent we did not do an apnea test but there is cough and gag no spontaneous movement of any of the 4 extremities Cardiac exam by bedside echo class 1 LV function Lungs are clear with no adventitious sounds Abdomen soft with no organomegaly and tolerating his tube feedings just has persistent diarrhea but no fever no abdominal tenderness no spike and count Extremities there are warm and in improved and there perfusion Objective Data Labs 05/11/23 05:03 05/11/23 05:03 Labs: Laboratory Results - last 24 hr 05/11/23 05/11/23 05/11/23 00:10 05:03 05:09 WBC 9.1 RBC 2.62 L Hgb 8.6 L Hct 25.1 L MCV 95.8 MCH 32.8 MCHC 34.3 RDW 15.2 Plt Count 45 L D MPV 12.3 Immature Gran % (Auto) Cancelled Neut % (Auto) Cancelled Lymph % (Auto) Cancelled [place] % (Auto) Cancelled Eos % (Auto) Cancelled Baso % (Auto) Cancelled Lymph # (Auto) Cancelled [place] # (Auto) Cancelled Eos # (Auto) Cancelled Baso # (Auto) Cancelled Abs Immat Gran (auto) Cancelled Absolute Neuts (auto) Cancelled Absolute Nucleated RBC 0.060 H Nucleated RBC % (auto) 0.7 H Neutrophils % (Manual) 79 H Band Neutrophils % 3 Lymphocytes % (Manual) 15 L Monocytes % (Manual) 3 Abs Neuts (Manual) 7.5 Lymphocytes # (Manual) 1.4 Monocytes # (Manual) 0.3 Toxic Granulation PRESENT Toxic Vacuolation PRESENT Dohle Bodies PRESENT Platelet Estimate DECREASED Plt Morphology Comment NORMAL RBC Morphology NOTED Polychromasia 1+ (0-2) Hypochromasia 1+ (5-14) Macrocytosis 1+ (5-14) Target Cells 1+ (5-14) Seeley Cells 2+ (3-5) PT 15.3 H INR 1.3 H APTT 28.0 D VBG pH VBG pCO2 VBG pO2 VBG HCO3 VBG O2 Saturation VBG Base Excess Sodium 143 Potassium 3.5 Chloride 115 H Carbon Dioxide 19 L Anion Gap 13 BUN 16 Creatinine 0.49 L Estim Creat Clear Calc 181.7 Estimated GFR > 60 POC Glucose 323 H 257 H Random Glucose 278 H Calcium 8.2 L Phosphorus 2.8 Magnesium 1.8 Total Bilirubin 9.1 H AST 86 H ALT 55 H Alkaline Phosphatase 617 H Ammonia 40 Total Protein 4.1 L Albumin 2.2 L Vancomycin Trough 05/11/23 05/11/23 05/11/23 05:11 06:53 12:11 WBC RBC Hgb Hct MCV MCH MCHC RDW Plt Count MPV Immature Gran % (Auto) Neut % (Auto) Lymph % (Auto) [place] % (Auto) Eos % (Auto) Baso % (Auto) Lymph # (Auto) [place] # (Auto) Eos # (Auto) Baso # (Auto) Abs Immat Gran (auto) Absolute Neuts (auto) Absolute Nucleated RBC Nucleated RBC % (auto) Neutrophils % (Manual) Band Neutrophils % Lymphocytes % (Manual) Monocytes % (Manual) Abs Neuts (Manual) Lymphocytes # (Manual) Monocytes # (Manual) Toxic Granulation Toxic Vacuolation Dohle Bodies Platelet Estimate Plt Morphology Comment RBC Morphology Polychromasia Hypochromasia Macrocytosis Target Cells Luis Cells PT INR APTT VBG pH 7.57 H VBG pCO2 26 VBG pO2 86 VBG HCO3 24 VBG O2 Saturation 99.0 VBG Base Excess 3.1 Sodium Potassium Chloride Carbon Dioxide Anion Gap BUN Creatinine Estim Creat Clear Calc Estimated GFR POC Glucose 295 H Random Glucose Calcium Phosphorus Magnesium Total Bilirubin AST ALT Alkaline Phosphatase Ammonia Total Protein Albumin Vancomycin Trough 13.8 05/11/23 17:54 WBC RBC Hgb Hct MCV MCH MCHC RDW Plt Count MPV Immature Gran % (Auto) Neut % (Auto) Lymph % (Auto) [place] % (Auto) Eos % (Auto) Baso % (Auto) Lymph # (Auto) [place] # (Auto) Eos # (Auto) Baso # (Auto) Abs Immat Gran (auto) Absolute Neuts (auto) Absolute Nucleated RBC Nucleated RBC % (auto) Neutrophils % (Manual) Band Neutrophils % Lymphocytes % (Manual) Monocytes % (Manual) Abs Neuts (Manual) Lymphocytes # (Manual) Monocytes # (Manual) Toxic Granulation Toxic Vacuolation Dohle Bodies Platelet Estimate Plt Morphology Comment RBC Morphology Polychromasia Hypochromasia Macrocytosis Target Cells [place] Cells PT INR APTT VBG pH VBG pCO2 VBG pO2 VBG HCO3 VBG O2 Saturation VBG Base Excess Sodium Potassium Chloride Carbon Dioxide Anion Gap BUN Creatinine Estim Creat Clear Calc Estimated GFR POC Glucose 326 H Random Glucose Calcium Phosphorus Magnesium Total Bilirubin AST ALT Alkaline Phosphatase Ammonia Total Protein Albumin Vancomycin Trough Microbiology Microbiology Results: Microbiology 05/05/23 15:09 Blood - Venous Blood Culture - Final No growth after 5 days. 05/05/23 16:20 Blood - Venous Blood Culture - Preliminary Clostridium sordellii Gram positive dmitri 05/05/23 21:13 Sputum - Induced Gram Stain - Final 05/05/23 21:13 Sputum - Induced Sputum Culture - Final Progress Note: A&P Assessment and plan (1) Encephalopathy: Status: Acute (2) Pressure ulcers of skin of multiple topographic sites: Status: Acute (3) Neutropenia: Status: Acute (4) Pancytopenia: Status: Acute (5) Hemolytic anemia associated with infection: Status: Acute (6) DIC (disseminated intravascular coagulation): Status: Acute (7) Bradycardia with 41-50 beats per minute: Status: Acute (8) Acute metabolic encephalopathy: Status: Acute (9) Aspiration pneumonia: Status: Acute (10) Unresponsive: Status: Acute (11) Pneumonia: Status: Acute (12) Septic shock: Status: Acute (13) Hypothermia: Status: Acute (14) Hypoglycemia associated with diabetes: Status: Acute Plan So we have a grave prognosis here for return of meaningful brain function family now of course understands this is now a wait and watch at least for the next 3 days with follow-up per repeat EKG to sort of confirm prognosis 1 way or the other continue to do daily neuro exam is Quality Stroke Does the patient have a stroke diagnosis?: No VTE Prior VTE?: No VTE Risk Level:: Medical - moderate - high VTE Device Contraindication: N/A - Device Ordered VTE Drug Contraindication: Treatment Not Tolerated
[2023-05-12] VITALS (30 sets, daily range): BP systolic 113–162; BP diastolic 73–99; PULSE 46–83; RESP 14–18; TEMP 35–37.4; O2SAT 92–97; BMI 25.2
[2023-05-12] MEDS: Hydrocortisone Sod Succ/PF 100 MG VIAL IVPUSH ×4 (00:02→23:56)
[2023-05-12 05:41] LABS: Venous Blood Gas Refer to POC result
[2023-05-12 05:58] LABS: MANUAL DIFF FLAG NO
[2023-05-12 06:03] LABS: Basophils Percent Auto 0.1 % (0-2); Hematocrit 22.2 % (42.0-52.0); Hemoglobin 7.7 g/dl (14.0-18.0); Imm Gran Abs Auto 0.27 X10*3/uL (0.00-0.03); Imm Gran Pct Auto 3.9 % (0.0-0.4); Lymphocytes Absolute Auto 0.8 X10*3/uL (1.2-4.9); Lymphocytes Percent Auto 11.8 % (20-40); Mean Corpuscular HGB Conc 34.7 g/dl (31.0-36.0); Mean Corpuscular Hemoglobin 33.3 pg (27.0-33.0); Mean Corpuscular Volume 96.1 fL (80.0-98.0); Monocytes Absolute Auto 0.4 X10*3/uL (0.1-1.2); Monocytes Percent Auto 5.8 % (2-11); NRBC Pct Auto 0.3 /100WBC (0.0-0.2); Neutrophils Absolute Auto 5.4 x10*3/uL (2.0-8.3); Neutrophils Percent Auto 78.4 % (45-73); Red Blood Count 2.31 X10*6/uL (4.60-5.80); Red Cell Distribution Width 16.9 % (11.0-16.0); White Blood Count 6.9 X10*3/uL (4.8-10.8)
[2023-05-12 06:05] LABS: Platelet Count 63 X10*3/uL (160-400)
[2023-05-12 06:12] LABS: Ammonia 51 umol/L (13-55)
[2023-05-12 06:25] LABS: Alanine Aminotransferase 55 U/L (0-40); Albumin Level 2.8 g/dL (3.5-5.0); Alkaline Phosphatase 517 U/L (39-117); Anion Gap 12 (12-20); Aspartate Amino Transferase 79 U/L (5-37); Bilirubin Total 8.1 mg/dL (0.0-1.0); Blood Urea Nitrogen 17 mg/dL (9-16); Calcium 8.2 mg/dL (8.4-10.2); Carbon Dioxide 22 mmol/L (22-29); Chloride 113 mmol/L (96-108); Creatinine Clr Calc Pharmacy 139.1; Estimated Glomerular Filt Rate > 60; Glucose Random 398 mg/dL (60-115); Magnesium 1.7 mg/dL (1.6-2.6); Phosphorus 3.1 mg/dL (2.7-4.5); Potassium 3.1 mmol/L (3.3-5.1); Sodium 144 mmol/L (135-145); Total Protein 4.2 g/dL (6.5-8.0)
[2023-05-12] MEDS: Multivitamin TABLET 1 TAB PO (09:39)
[2023-05-12] MEDS: Folic Acid 1 MG TABLET PO (09:39)
[2023-05-12] MEDS: Chlorhexidine Gluc Oral Rinse 15 ML MOUTHWASH BUCCAL ×3 (09:39→20:21)
[2023-05-12] MEDS: Thiamine HCL 100 MG TABLET PO (09:39)
--- NOTE | 2023-05-12 14:24 | PM.CCPN ---
Subjective Subjective Date of Service: 05/12/23 Interval History: 42-year-old chronic alcoholic and schizoaffective who was found down and not heard from for 3 days was markedly hypothermic hypotensive bradycardic clearly combination of see if circulatory and septic shock volume resuscitated we warmed on a trophic support and most organ function restored including acute renal insufficiency diminished cardiac performance and he still remains vent ventilator dependent primarily because he remains completely comatose no response even to deep pain just preservation of brainstem reflexes outside of some mild hypokalemia he otherwise remains normal from a metabolic standpoint but again unresponsive even to deep pain deeply comatose no spontaneous movement of any extremity Critical Care Time (minutes): 30 Physical Exam Vital Signs: Vital Signs: Last Vital Signs Temp 98.6 F 05/12/23 14:00 Pulse 49 L 05/12/23 14:00 Resp 15 05/12/23 14:00 BP 124/79 05/12/23 14:00 Pulse Ox 95 05/12/23 14:00 O2 Del Method Mechanical Ventil ation 05/12/23 14:00 O2 Flow Rate 21 05/07/23 03:00 FiO2 21 05/12/23 14:00 BMI result Body Mass Index 25.2 on arousable even to deep pain bedside echo demonstrating normal L V function lungs are clear he remains with a low FiO2 and min olga ventilation requirement abdomen benign he has necrotic but only skin deep of wound over the left buttock and that wound is packed there is no deep tissue involvement so we have source control Objective Data Labs 05/12/23 05:15 05/12/23 05:15 Labs: Laboratory Results - last 24 hr 05/11/23 05/11/23 05/12/23 17:54 23:49 05:15 WBC 6.9 RBC 2.31 L Hgb 7.7 L Hct 22.2 L MCV 96.1 MCH 33.3 H MCHC 34.7 RDW 16.9 H Plt Count 63 L D MPV 13.0 H Immature Gran % (Auto) 3.9 H Neut % (Auto) 78.4 H Lymph % (Auto) 11.8 L [place] % (Auto) 5.8 Eos % (Auto) 0.0 Baso % (Auto) 0.1 Lymph # (Auto) 0.8 L [place] # (Auto) 0.4 Eos # (Auto) 0.0 Baso # (Auto) 0.0 Abs Immat Gran (auto) 0.27 H Absolute Neuts (auto) 5.4 Absolute Nucleated RBC 0.020 H Nucleated RBC % (auto) 0.3 H VBG pH VBG pCO2 VBG pO2 VBG HCO3 VBG O2 Saturation VBG Base Excess Sodium 144 Potassium 3.1 L Chloride 113 H Carbon Dioxide 22 Anion Gap 12 BUN 17 H Creatinine 0.64 Estim Creat Clear Calc 139.1 Estimated GFR > 60 POC Glucose 326 H 288 H Random Glucose 398 H* Calcium 8.2 L Phosphorus 3.1 Magnesium 1.7 Total Bilirubin 8.1 H AST 79 H ALT 55 H Alkaline Phosphatase 517 H Ammonia Total Protein 4.2 L Albumin 2.8 L 05/12/23 05/12/23 05/12/23 05:17 05:20 05:45 WBC RBC Hgb Hct MCV MCH MCHC RDW Plt Count MPV Immature Gran % (Auto) Neut % (Auto) Lymph % (Auto) [place] % (Auto) Eos % (Auto) Baso % (Auto) Lymph # (Auto) [place] # (Auto) Eos # (Auto) Baso # (Auto) Abs Immat Gran (auto) Absolute Neuts (auto) Absolute Nucleated RBC Nucleated RBC % (auto) VBG pH 7.57 H VBG pCO2 25 VBG pO2 73 VBG HCO3 23 VBG O2 Saturation 96.0 VBG Base Excess 2.3 Sodium Potassium Chloride Carbon Dioxide Anion Gap BUN Creatinine Estim Creat Clear Calc Estimated GFR POC Glucose 395 H* Random Glucose Calcium Phosphorus Magnesium Total Bilirubin AST ALT Alkaline Phosphatase Ammonia 51 Total Protein Albumin 05/12/23 12:16 WBC RBC Hgb Hct MCV MCH MCHC RDW Plt Count MPV Immature Gran % (Auto) Neut % (Auto) Lymph % (Auto) [place] % (Auto) Eos % (Auto) Baso % (Auto) Lymph # (Auto) [place] # (Auto) Eos # (Auto) Baso # (Auto) Abs Immat Gran (auto) Absolute Neuts (auto) Absolute Nucleated RBC Nucleated RBC % (auto) VBG pH VBG pCO2 VBG pO2 VBG HCO3 VBG O2 Saturation VBG Base Excess Sodium Potassium Chloride Carbon Dioxide Anion Gap BUN Creatinine Estim Creat Clear Calc Estimated GFR POC Glucose 384 H* Random Glucose Calcium Phosphorus Magnesium Total Bilirubin AST ALT Alkaline Phosphatase Ammonia Total Protein Albumin Microbiology Microbiology Results: Microbiology 05/05/23 15:09 Blood - Venous Blood Culture - Final No growth after 5 days. 05/05/23 16:20 Blood - Venous Blood Culture - Preliminary Clostridium sordellii Gram positive dmitri 05/05/23 21:13 Sputum - Induced Gram Stain - Final 05/05/23 21:13 Sputum - Induced Sputum Culture - Final Progress Note: A&P Assessment and plan (1) Encephalopathy: Status: Acute (2) Pressure ulcers of skin of multiple topographic sites: Status: Acute (3) Neutropenia: Status: Acute (4) Pancytopenia: Status: Acute (5) Hemolytic anemia associated with infection: Status: Acute (6) DIC (disseminated intravascular coagulation): Status: Acute (7) Bradycardia with 41-50 beats per minute: Status: Acute (8) Acute metabolic encephalopathy: Status: Acute (9) Aspiration pneumonia: Status: Acute (10) Unresponsive: Status: Acute (11) Pneumonia: Status: Acute (12) Septic shock: Status: Acute (13) Hypothermia: Status: Acute (14) Hypoglycemia associated with diabetes: Status: Acute Plan so at this point he just remains ventilator dependent no no evidence of over breathing the ventilator and ago again remains deeply comatose unresponsive to deep pain encephalopathic but only preserved brainstem reflexes and that is confirmed by our most recent EEG and we will observe for several more days and then repeat EEG in demonstrating no further progress and cognitive function will will have a discussion with the family about the gravity of the prognosis and probable decision about comfort measure Quality Stroke Does the patient have a stroke diagnosis?: No VTE Prior VTE?: No VTE Risk Level:: Medical - moderate - high VTE Device Contraindication: N/A - Device Ordered VTE Drug Contraindication: Treatment Not Tolerated
[2023-05-12 19:49] LABS: Vancomycin Random 24.6 mcg/mL (15-20)
[2023-05-13] VITALS (30 sets, daily range): BP systolic 134–176; BP diastolic 76–91; PULSE 40–56; RESP 12–17; TEMP 34.6–37.5; O2SAT 94–143; BMI 25.4
[2023-05-13 06:07] LABS: MANUAL DIFF FLAG NO
[2023-05-13 06:19] LABS: Basophils Percent Auto 0.1 % (0-2); Hematocrit 21.6 % (42.0-52.0); Hemoglobin 7.2 g/dl (14.0-18.0); Imm Gran Abs Auto 0.33 X10*3/uL (0.00-0.03); Imm Gran Pct Auto 3.9 % (0.0-0.4); Lymphocytes Absolute Auto 0.7 X10*3/uL (1.2-4.9); Lymphocytes Percent Auto 8.1 % (20-40); Mean Corpuscular HGB Conc 33.3 g/dl (31.0-36.0); Mean Corpuscular Hemoglobin 32.9 pg (27.0-33.0); Mean Corpuscular Volume 98.6 fL (80.0-98.0); Mean Platelet Volume 12.8 fL (9.4-12.4); Monocytes Absolute Auto 0.5 X10*3/uL (0.1-1.2); Monocytes Percent Auto 5.5 % (2-11); NRBC Pct Auto 0.4 /100WBC (0.0-0.2); Neutrophils Percent Auto 82.4 % (45-73); Red Blood Count 2.19 X10*6/uL (4.60-5.80); Red Cell Distribution Width 18.4 % (11.0-16.0); Venous Blood Gas Refer to POC result; White Blood Count 8.5 X10*3/uL (4.8-10.8)
[2023-05-13 06:20] LABS: Platelet Count 91 X10*3/uL (160-400)
[2023-05-13 06:39] LABS: Alanine Aminotransferase 59 U/L (0-40); Albumin Level 3.5 g/dL (3.5-5.0); Alkaline Phosphatase 462 U/L (39-117); Anion Gap 12 (12-20); Aspartate Amino Transferase 79 U/L (5-37); Bilirubin Total 7.8 mg/dL (0.0-1.0); Blood Urea Nitrogen 19 mg/dL (9-16); Calcium 8.7 mg/dL (8.4-10.2); Carbon Dioxide 22 mmol/L (22-29); Chloride 113 mmol/L (96-108); Creatinine Clr Calc Pharmacy 123.6; Estimated Glomerular Filt Rate > 60; Magnesium 1.8 mg/dL (1.6-2.6); Potassium 3.3 mmol/L (3.3-5.1); Sodium 144 mmol/L (135-145); Total Protein 4.8 g/dL (6.5-8.0)
[2023-05-13 06:43] LABS: Glucose Random 412 mg/dL (60-115)
[2023-05-13] MEDS: Multivitamin TABLET 1 TAB PO (10:02)
[2023-05-13] MEDS: Thiamine HCL 100 MG TABLET PO (10:02)
[2023-05-13] MEDS: Folic Acid 1 MG TABLET PO (10:03)
[2023-05-13 13:12] LABS: Vancomycin Random 10.5 mcg/mL (15-20)
--- NOTE | 2023-05-13 17:22 | PM.CCPN ---
Subjective Subjective Date of Service: 05/13/23 Interval History: 42-year-old male who was found down at home unknown amount of time markedly hypothermic and hypotensive clearly in in shock and he has a known longstanding alcoholic with alcohol related liver disease presumably septic and had aggressive large volume fluid resuscitation while rewarming as well as high-dose inotropics support managed overcome the shock and all organ insufficiency seem to repair the a gradual resolution of his respiratory insufficiency which was largely on the basis of an extensive bilateral aspiration pneumonitis repair of his initial cardiac dysfunction and his acute renal insufficiency the only problem of course is that he has not awakened he is remained unresponsive even to deep pain he retains all of his brainstem reflexes pupils being equal and reactive to the no to light positive doll's eyes eyes wander back and forth across the midline spontaneously got positive corneals he has got gag and cough reflex but no signs of any cortical function anion he had of a very encephalopathic appearance of his EEG with with very very flat reduce forces but no epileptiform activity and metabolically everything seems to have repaired he has had a persistent bradycardia with sinus rhythm and her in the with rate in the 40s down to minimal FiO2 requirement minimal minute ventilation requirement vital signs and everything are doing excellent this just that the no he has got tremendous amount of 3rd space fluid is over 20 L positive since his coming to the hospital so we did initiate some diuretic therapy today to help that out and as I explained to the mother between his lack of responsiveness now 5-6 days off all sedation and with the EEG appearance the we would wait through the weekend and if he continue to show no progress progress and in cognitive function we would repeat an EEG it to see if it continues to appears dysfunctional as the 1st in which case we could make a fairly firm statement that he is not going to be restored to meaningfully and they might want to consider at that point comfort measures but we would give it a few more days until the opportunity to repeat another EEG Critical Care Time (minutes): 45 Physical Exam Vital Signs: Vital Signs: Last Vital Signs Temp 98.2 F 05/13/23 17:00 Pulse 45 L 05/13/23 17:00 Resp 12 05/13/23 17:00 BP 143/86 H 05/13/23 17:00 Pulse Ox 143 H 05/13/23 17:00 O2 Del Method Mechanical Ventil ation 05/13/23 17:00 O2 Flow Rate 21 05/07/23 03:00 FiO2 21 05/13/23 17:00 BMI result Body Mass Index 25.4 still does not demonstrate any responsiveness even to deep pain and brainstem reflexes remain preserved otherwise flaccid with no spontaneous movement bedside echo still sure shows preserved LV and RV function a he did start to over breathe the vent by 2 or 3 breaths for the 1st time since he has been here but that has settled right back down again it again he has got a minute ventilatory requirement that is about 7 L and is FiO2 is is is minimal abdomen is soft good bilateral breath bowel sounds and he has no organomegaly and tolerating feedings he has got the necrotic skin over the buttock which was explored and packed no deep tissue w as involved again we grew out Gram-positive rods both a row back and anaerobic and the anaerobic was clostridial organism mariaa dc but were waiting for the Aer[place]ika Gram-positive to come back nonetheless he remains on Levaquin and metronidazole for the combined sources of the necrotic lesion on his back as well as the aspiration picture his course along the way was also complicated by documented DIC he developed a consumptive coagulopathy and a microangiopathic picture I it looked at the slides myself but his last 3 days his platelet count is repeat repairing so his CBC had stabilized Objective Data Labs 05/13/23 05:22 05/13/23 05:22 Labs: Laboratory Results - last 24 hr 05/12/23 05/12/23 05/12/23 18:00 19:12 23:35 WBC RBC Hgb Hct MCV MCH MCHC RDW Plt Count MPV Immature Gran % (Auto) Neut % (Auto) Lymph % (Auto) [place] % (Auto) Eos % (Auto) Baso % (Auto) Lymph # (Auto) [place] # (Auto) Eos # (Auto) Baso # (Auto) Abs Immat Gran (auto) Absolute Neuts (auto) Absolute Nucleated RBC Nucleated RBC % (auto) VBG pH VBG pCO2 VBG pO2 VBG HCO3 VBG O2 Saturation VBG Base Excess Sodium Potassium Chloride Carbon Dioxide Anion Gap BUN Creatinine Estim Creat Clear Calc Estimated GFR POC Glucose 374 H* 356 H* Random Glucose Calcium Phosphorus Magnesium Total Bilirubin AST ALT Alkaline Phosphatase Total Protein Albumin Random Vancomycin 24.6 H 05/13/23 05/13/23 05/13/23 05:22 05:24 05:50 WBC 8.5 RBC 2.19 L Hgb 7.2 L Hct 21.6 L MCV 98.6 H MCH 32.9 MCHC 33.3 RDW 18.4 H Plt Count 91 L D MPV 12.8 H Immature Gran % (Auto) 3.9 H Neut % (Auto) 82.4 H Lymph % (Auto) 8.1 L [place] % (Auto) 5.5 Eos % (Auto) 0.0 Baso % (Auto) 0.1 Lymph # (Auto) 0.7 L [place] # (Auto) 0.5 Eos # (Auto) 0.0 Baso # (Auto) 0.0 Abs Immat Gran (auto) 0.33 H Absolute Neuts (auto) 7.0 Absolute Nucleated RBC 0.030 H Nucleated RBC % (auto) 0.4 H VBG pH 7.49 H VBG pCO2 32 VBG pO2 42 VBG HCO3 25 VBG O2 Saturation 67.0 VBG Base Excess 2.7 Sodium 144 Potassium 3.3 Chloride 113 H Carbon Dioxide 22 Anion Gap 12 BUN 19 H Creatinine 0.72 Estim Creat Clear Calc 123.6 Estimated GFR > 60 POC Glucose 391 H* Random Glucose 412 H* Calcium 8.7 D Phosphorus 3.0 Magnesium 1.8 Total Bilirubin 7.8 H AST 79 H ALT 59 H Alkaline Phosphatase 462 H Total Protein 4.8 L Albumin 3.5 Random Vancomycin 05/13/23 05/13/23 11:59 12:40 WBC RBC Hgb Hct MCV MCH MCHC RDW Plt Count MPV Immature Gran % (Auto) Neut % (Auto) Lymph % (Auto) [place] % (Auto) Eos % (Auto) Baso % (Auto) Lymph # (Auto) [place] # (Auto) Eos # (Auto) Baso # (Auto) Abs Immat Gran (auto) Absolute Neuts (auto) Absolute Nucleated RBC Nucleated RBC % (auto) VBG pH VBG pCO2 VBG pO2 VBG HCO3 VBG O2 Saturation VBG Base Excess Sodium Potassium Chloride Carbon Dioxide Anion Gap BUN Creatinine Estim Creat Clear Calc Estimated GFR POC Glucose 408 H* Random Glucose Calcium Phosphorus Magnesium Total Bilirubin AST ALT Alkaline Phosphatase Total Protein Albumin Random Vancomycin 10.5 L Microbiology Microbiology Results: Microbiology 05/05/23 15:09 Blood - Venous Blood Culture - Final No growth after 5 days. 05/05/23 16:20 Blood - Venous Blood Culture - Preliminary Clostridium sordellii Gram positive dmitri 05/05/23 21:13 Sputum - Induced Gram Stain - Final 05/05/23 21:13 Sputum - Induced Sputum Culture - Final Progress Note: A&P Assessment and plan (1) Encephalopathy: Status: Acute (2) Pressure ulcers of skin of multiple topographic sites: Status: Acute (3) Neutropenia: Status: Acute (4) Pancytopenia: Status: Acute (5) Hemolytic anemia associated with infection: Status: Acute (6) DIC (disseminated intravascular coagulation): Status: Acute (7) Bradycardia with 41-50 beats per minute: Status: Acute (8) Acute metabolic encephalopathy: Status: Acute (9) Aspiration pneumonia: Status: Acute (10) Unresponsive: Status: Acute (11) Pneumonia: Status: Acute (12) Septic shock: Status: Acute (13) Hypothermia: Status: Acute (14) Hypoglycemia associated with diabetes: Status: Acute Plan so we continue to support as above between the ventilator and the above antibiotics we continue to observe to look for spontaneous signs of returning cognitive function and diuresing because he has had more than a 20 L cumulative positive over his time here in the hospital and come Sunday and a repeat EEG to confirm if he continues to remain comatose and the family in most particularly the mother is been prepare for possible discussion of comfort Quality Stroke Does the patient have a stroke diagnosis?: No VTE Prior VTE?: No VTE Risk Level:: Medical - moderate - high VTE Device Contraindication: N/A - Device Ordered VTE Drug Contraindication: Treatment Not Tolerated
[2023-05-14] VITALS (30 sets, daily range): BP systolic 124–165; BP diastolic 85–100; PULSE 44–89; RESP 13–18; TEMP 34.6–37; O2SAT 91–98; BMI 25.4
[2023-05-14] MEDS: Multivitamin TABLET 1 TAB PO (08:13)
[2023-05-14] MEDS: Folic Acid 1 MG TABLET PO (08:13)
[2023-05-14] MEDS: Thiamine HCL 100 MG TABLET PO (08:14)
--- NOTE | 2023-05-14 10:04 | MHC.CLN ---
F/U PT REMAINS INTUBATED REVIEWED LABS PT CONTINUES ON PROMOTE AT MAX GOAL RATE 65ML/HR WITH 120ML FREE WATER FLUSHES Q 6 HRS TO PROVIDE 1560KCALS (26.5KCALS/KG), 97.5G PROTEIN (1.6G/KG), 1789ML TOTAL WATER FROM FORMULA AND FLUSHES (30.4ML/KG) TF WILL PROMOTE WOUND HEALING MONITOR TOLERANCE, RESIDUALS AND LYTES
--- NOTE | 2023-05-14 10:48 | PM.CCPN ---
Subjective Subjective Date of Service: 05/14/23 Interval History: 42-year-old gentleman with underlying history of bipolar disorder, alcohol abuse, diabetes mellitus admitted on 05/05/2023 after found unresponsive. On ER evaluation hypothermic and unable to protect airway requiring intubation. Hospital course significant for persistent encephalopathy, essentially with no improvement over the last 9 days. Evaluated by neurology with concern for possible anoxic encephalopathy. No events overnight. Critical Care Time (minutes): 45 Physical Exam Vital Signs: Vital Signs: Last Vital Signs Temp 97.9 F 05/14/23 10:00 Pulse 52 05/14/23 10:00 Resp 15 05/14/23 10:00 BP 157/97 H 05/14/23 10:00 Pulse Ox 95 05/14/23 10:00 O2 Del Method Mechanical Ventil ation 05/14/23 10:00 O2 Flow Rate 21 05/07/23 03:00 FiO2 21 05/14/23 10:00 BMI result Body Mass Index 25.4 Const: General: patient obtunded Orientation/consciousness: patient obtunded Eyes: Sclerae: sclerae normal EOM: EOMs intact bilaterally Neck: Neck: Yes no lymphadenopathy, Yes trachea midline and Yes supple Resp: Auscultation: clear to auscultation bilaterally Cardio: Rate: regular rate Rhythm: regular rhythm Heart sounds: no gallops, no murmurs and no rubs GI: Palpation (GI): Soft to palpation and Other GI palpation findings present ( Nontender) Auscultation: normal bowel sounds Neuro: General: patient obtunded Extrem: General: No clubbing, No cyanosis and Yes edema (1+ bilateral) Objective Data Labs 05/14/23 05:25 05/14/23 05:25 Labs: Laboratory Results - last 24 hr 05/13/23 05/13/23 05/13/23 11:59 12:40 17:29 WBC RBC Hgb Hct MCV MCH MCHC RDW Plt Count MPV Immature Gran % (Auto) Neut % (Auto) Lymph % (Auto) [place] % (Auto) Eos % (Auto) Baso % (Auto) Lymph # (Auto) [place] # (Auto) Eos # (Auto) Baso # (Auto) Abs Immat Gran (auto) Absolute Neuts (auto) Absolute Nucleated RBC Nucleated RBC % (auto) VBG pH VBG pCO2 VBG pO2 VBG HCO3 VBG O2 Saturation VBG Base Excess Sodium Potassium Chloride Carbon Dioxide Anion Gap BUN Creatinine Estim Creat Clear Calc Estimated GFR POC Glucose 408 H* 394 H* Random Glucose Calcium Phosphorus Magnesium Total Bilirubin AST ALT Alkaline Phosphatase Total Protein Albumin Random Vancomycin 10.5 L 05/14/23 05/14/23 05/14/23 00:36 05:01 05:25 WBC 10.5 RBC 2.56 L Hgb 8.6 L Hct 25.0 L MCV 97.7 MCH 33.6 H MCHC 34.4 RDW 18.2 H Plt Count 126 L D MPV 12.4 Immature Gran % (Auto) 1.9 H Neut % (Auto) 89.2 H Lymph % (Auto) 5.7 L [place] % (Auto) 2.6 Eos % (Auto) 0.0 Baso % (Auto) 0.6 Lymph # (Auto) 0.6 L [place] # (Auto) 0.3 Eos # (Auto) 0.0 Baso # (Auto) 0.1 Abs Immat Gran (auto) 0.20 H Absolute Neuts (auto) 9.4 H Absolute Nucleated RBC 0.030 H Nucleated RBC % (auto) 0.3 H VBG pH VBG pCO2 VBG pO2 VBG HCO3 VBG O2 Saturation VBG Base Excess Sodium 147 H Potassium 2.2 L* D Chloride 110 H Carbon Dioxide 26 Anion Gap 13 BUN 20 H Creatinine 0.65 Estim Creat Clear Calc 137.0 Estimated GFR > 60 POC Glucose 376 H* 344 H Random Glucose 368 H* Calcium 8.5 Phosphorus 3.3 Magnesium 1.8 Total Bilirubin 8.7 H AST 74 H ALT 66 H Alkaline Phosphatase 520 H Total Protein 4.8 L Albumin 3.1 L Random Vancomycin 05/14/23 05:34 WBC RBC Hgb Hct MCV MCH MCHC RDW Plt Count MPV Immature Gran % (Auto) Neut % (Auto) Lymph % (Auto) [place] % (Auto) Eos % (Auto) Baso % (Auto) Lymph # (Auto) [place] # (Auto) Eos # (Auto) Baso # (Auto) Abs Immat Gran (auto) Absolute Neuts (auto) Absolute Nucleated RBC Nucleated RBC % (auto) VBG pH 7.56 H VBG pCO2 36 VBG pO2 52 VBG HCO3 32 H VBG O2 Saturation 83.0 VBG Base Excess 10.1 Sodium Potassium Chloride Carbon Dioxide Anion Gap BUN Creatinine Estim Creat Clear Calc Estimated GFR POC Glucose Random Glucose Calcium Phosphorus Magnesium Total Bilirubin AST ALT Alkaline Phosphatase Total Protein Albumin Random Vancomycin Microbiology Microbiology Results: Microbiology 05/05/23 15:09 Blood - Venous Blood Culture - Final No growth after 5 days. 05/05/23 16:20 Blood - Venous Blood Culture - Preliminary Clostridium sordellii Gram positive dmitri 05/05/23 21:13 Sputum - Induced Gram Stain - Final 05/05/23 21:13 Sputum - Induced Sputum Culture - Final Progress Note: A&P Assessment and plan (1) Encephalopathy: Status: Acute (2) Acute respiratory failure: Status: Acute (3) Diabetes mellitus: Status: Acute (4) Pressure ulcers of skin of multiple topographic sites: Status: Acute Plan Assessment: 42-year-old gentleman admitted with unresponsiveness with initially unrevealing CT head, however requiring intubation for airway protection, now with persistent encephalopathy with no improvement Plan: Neuro: Likely anoxic encephalopathy. Neurology service care appreciated. Will obtain MRI brain for further evaluation. Cardiac: No acute issues. Pulmonary: Acute respiratory failure requiring ventilatory support for airway protection. Renal: No acute issues. Endo: No acute issues. Underlying diabetes mellitus. GI: No acute issues. ID: No acute issues Heme/Onc: No acute issues. Psych: No acute issues. Miscellaneous: No acute issues. Prophylaxis: Heparin, ppi Diet: Tube feeds Critical care time spent: 45 minutes Quality Stroke Does the patient have a stroke diagnosis?: No VTE Prior VTE?: No VTE Risk Level:: Medical - moderate - high VTE Device Contraindication: N/A - Device Ordered VTE Drug Contraindication: Treatment Not Tolerated
[2023-05-15] VITALS (30 sets, daily range): BP systolic 120–157; BP diastolic 81–107; PULSE 64–96; RESP 14–23; TEMP 34.6–37.6; O2SAT 89–98; BMI 24.1
[2023-05-15 05:10] LABS: Albumin Level 2.8 g/dL (3.5-5.0); Anion Gap 12 (12-20); Blood Urea Nitrogen 20 mg/dL (9-16); Calcium 8.6 mg/dL (8.4-10.2); Carbon Dioxide 27 mmol/L (22-29); Chloride 111 mmol/L (96-108); Creatinine Clr Calc Pharmacy 181.7; Estimated Glomerular Filt Rate > 60; Glucose Random 259 mg/dL (60-115); Magnesium 1.8 mg/dL (1.6-2.6); Phosphorus 2.7 mg/dL (2.7-4.5); Sodium 147 mmol/L (135-145)
[2023-05-15] MEDS: Thiamine HCL 100 MG TABLET PO (08:05)
--- NOTE | 2023-05-15 10:07 | MHC.CM.PN ---
Pt continues in ICU on ventilatory support: no meaningful recovery noted: pt to have MRI today to assess for anoxic brain injury. CM to follow
--- NOTE | 2023-05-15 11:25 | PM.CCPN ---
Subjective Subjective Date of Service: 05/15/23 Interval History: 42-year-old gentleman with underlying history of bipolar disorder, alcohol abuse, diabetes mellitus admitted on 05/05/2023 after found unresponsive. On ER evaluation hypothermic and unable to protect airway requiring intubation. Hospital course significant for persistent encephalopathy, essentially with no improvement over the last 9 days. Evaluated by neurology with concern for possible anoxic encephalopathy. No events overnight. Critical Care Time (minutes): 30 Physical Exam Vital Signs: Vital Signs: Last Vital Signs Temp 99.3 F 05/15/23 11:00 Pulse 89 05/15/23 11:00 Resp 20 05/15/23 11:00 BP 128/86 05/15/23 11:00 Pulse Ox 97 05/15/23 11:00 O2 Del Method Mechanical Ventil ation 05/15/23 11:00 O2 Flow Rate 21 05/07/23 03:00 FiO2 21 05/15/23 11:00 BMI result Body Mass Index 24.1 Const: General: no acute distress and patient obtunded Orientation/consciousness: patient obtunded Eyes: Sclerae: sclerae normal EOM: EOMs intact bilaterally Neck: Neck: Yes no lymphadenopathy, Yes trachea midline and Yes supple Resp: Auscultation: clear to auscultation bilaterally Cardio: Rate: regular rate Rhythm: regular rhythm Heart sounds: no gallops, no murmurs and no rubs GI: Palpation (GI): Soft to palpation and Other GI palpation findings present ( Nontender) Auscultation: normal bowel sounds Neuro: General: patient obtunded Extrem: General: Yes no pedal edema, No clubbing and No cyanosis Objective Data Labs 05/15/23 04:13 05/15/23 04:13 Labs: Laboratory Results - last 24 hr 05/14/23 05/14/23 05/14/23 11:48 17:26 23:52 WBC RBC Hgb Hct MCV MCH MCHC RDW Plt Count MPV Immature Gran % (Auto) Neut % (Auto) Lymph % (Auto) [place] % (Auto) Eos % (Auto) Baso % (Auto) Lymph # (Auto) [place] # (Auto) Eos # (Auto) Baso # (Auto) Abs Immat Gran (auto) Absolute Neuts (auto) Absolute Nucleated RBC Nucleated RBC % (auto) VBG pH VBG pCO2 VBG pO2 VBG HCO3 VBG O2 Saturation VBG Base Excess Sodium Potassium Chloride Carbon Dioxide Anion Gap BUN Creatinine Estim Creat Clear Calc Estimated GFR POC Glucose 320 H 357 H* 308 H Random Glucose Calcium Phosphorus Magnesium Albumin 05/15/23 05/15/23 05/15/23 04:13 04:22 05:45 WBC 11.3 H RBC 2.65 L Hgb 8.8 L Hct 26.1 L MCV 98.5 H MCH 33.2 H MCHC 33.7 RDW 19.6 H Plt Count 164 D MPV 12.5 H Immature Gran % (Auto) 1.9 H Neut % (Auto) 79.2 H Lymph % (Auto) 13.4 L [place] % (Auto) 5.3 Eos % (Auto) 0.1 Baso % (Auto) 0.1 Lymph # (Auto) 1.5 [place] # (Auto) 0.6 Eos # (Auto) 0.0 Baso # (Auto) 0.0 Abs Immat Gran (auto) 0.21 H Absolute Neuts (auto) 9.0 H Absolute Nucleated RBC 0.030 H Nucleated RBC % (auto) 0.3 H VBG pH 7.58 H VBG pCO2 35 VBG pO2 55 VBG HCO3 33 H VBG O2 Saturation 86.0 VBG Base Excess 10.9 Sodium 147 H Potassium 3.0 L D Chloride 111 H Carbon Dioxide 27 Anion Gap 12 BUN 20 H Creatinine 0.49 L Estim Creat Clear Calc 181.7 Estimated GFR > 60 POC Glucose 209 H Random Glucose 259 H Calcium 8.6 Phosphorus 2.7 Magnesium 1.8 Albumin 2.8 L 05/15/23 11:17 WBC RBC Hgb Hct MCV MCH MCHC RDW Plt Count MPV Immature Gran % (Auto) Neut % (Auto) Lymph % (Auto) [place] % (Auto) Eos % (Auto) Baso % (Auto) Lymph # (Auto) [place] # (Auto) Eos # (Auto) Baso # (Auto) Abs Immat Gran (auto) Absolute Neuts (auto) Absolute Nucleated RBC Nucleated RBC % (auto) VBG pH VBG pCO2 VBG pO2 VBG HCO3 VBG O2 Saturation VBG Base Excess Sodium Potassium Chloride Carbon Dioxide Anion Gap BUN Creatinine Estim Creat Clear Calc Estimated GFR POC Glucose 99 Random Glucose Calcium Phosphorus Magnesium Albumin Microbiology Microbiology Results: Microbiology 05/05/23 15:09 Blood - Venous Blood Culture - Final No growth after 5 days. 09/30/23 16:20 Blood - Venous Blood Culture - Preliminary Clostridium sordellii Gram positive dmitri 05/05/23 21:13 Sputum - Induced Gram Stain - Final 05/05/23 21:13 Sputum - Induced Sputum Culture - Final Progress Note: A&P Assessment and plan (1) Encephalopathy: Status: Acute (2) Acute respiratory failure: Status: Acute (3) Diabetes mellitus: Status: Acute (4) Pressure ulcers of skin of multiple topographic sites: Status: Acute Plan Assessment: 42-year-old gentleman admitted with unresponsiveness with initially unrevealing CT head, however requiring intubation for airway protection, now with persistent encephalopathy with no improvement Plan: Neuro: Likely anoxic encephalopathy. Neurology service care appreciated. MRI brain is pending. Cardiac: No acute issues. Pulmonary: Acute respiratory failure requiring ventilatory support for airway protection. Renal: No acute issues. Endo: No acute issues. Underlying diabetes mellitus. GI: No acute issues. ID: No acute issues Heme/Onc: No acute issues. Psych: No acute issues. Miscellaneous: No acute issues. Prophylaxis: Heparin, ppi Diet: Tube feeds Critical care time spent: 30 minutes Quality Stroke Does the patient have a stroke diagnosis?: No VTE Prior VTE?: No VTE Risk Level:: Medical - moderate - high VTE Device Contraindication: N/A - Device Ordered VTE Drug Contraindication: Treatment Not Tolerated
--- NOTE | 2023-05-15 13:36 | HO.WOUNDCONS ---
History of Present Illness Data of Consult Service Date: 05/15/23 Requesting physician: Darrell Kiser Primary Care Provider: Beena Melo MD HPI Reason for consult: upper back and thoracic wounds 42-year-old male found unresponsive, brought to [facility] and admitted to ICU on May 05. Emergency room exam suggests changes of lividity to the in the upper thoracic and lower lumbar region. Fatty liver is discussed on CT scan. The patient remains unresponsive and cannot contribute details. There is a history of diabetes in the record, unclear if is type 1 or type 2. We are asked to provide recommendations for thoracic and sacral ulcers. 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 Mother Diabetes Surgical History No pertinent past surgical history Social History Household Members: Unknown / Unable to assess Household Members Other:: with dog Housing: House Do you presently have visiting nurse or other home services: No Unable to assess alcohol history related to: Unable to respond Alcohol intake: current Alcohol intake frequency: 3 or more drinks per day Alcohol type: hard liquor Patient Tobacco Use Status: Never used Tobacco e-Cigarette/Vaping Use: Never Used Second Hand Smoke Exposure: No Use of substances other than those prescribed or required for medical reasons: Unknown Currently Displaying Signs/Symptoms of Drug Intoxication Withdrawal: No Advance Directives: Yes Advance Directives on File: Yes Advance Directives Date on File: 02/07/22 Do you have thoughts of harming others: None Do you have a plan to hurt others: No Plan Recently lost weight without trying: Unsure Nutrition Risks: Dental problems and Poor intake 0-25% >4 days Poor oral hygiene: Yes service: No Current occupational status: unemployed Meds Allergies Allergy/AdvReac Type Severity Reaction Status Date / Time meropenem [MEROPENEM] Allergy Unknown SWELLING Verified 09/25/22 22:45 penicillin G procaine Allergy Unknown itching Verified 09/25/22 22:45 Penicillins [PENICILLINS] Allergy Unknown SWELLING Verified 09/25/22 22:45 Active Medications: Current Medications Chlorhexidine Gluconate (Chlorhexidine Gluc Oral Rinse 15 Ml Mouthwash) 15 ml BUCCAL TID [facility] Last Admin: 05/15/23 08:06 Dose: 15 ml Dextrose (Dextrose 50 % 25 Gm/50 Ml Syringe) 25 gm IVPUSH Q15M PRN; Protocol PRN Reason: per Hypoglycemia Standing Ord. Folic Acid (Folic Acid 1 Mg Tablet) 1 mg PO DAILY [facility] Last Admin: 05/15/23 08:05 Dose: 1 mg Glucose (Glucose Gel 15 Gm Gel..Gram.) 15 gm PO Q15M PRN; Protocol PRN Reason: per Hypoglycemia Standing Ord. Norepinephrine Bitartrate (Levophed) 8 mg in 250 mls @ 0 mls/hr IV .Q0M [facility]; Protocol Last Titration: 05/09/23 12:30 Dose: Infused Albumin Human (Kedbumin 25 %) 100 mls @ 100 mls/hr IV Q6H [facility] Stop: 05/16/23 02:59 Last Infusion: 05/15/23 08:50 Dose: Infused Insulin Glargine (Insulin Glargine,Hum.Rec.Anlog 100 Unit/Ml 10 Ml Vial) 20 unit SUBCUT DAILY [facility] Last Admin: 05/15/23 08:05 Dose: 20 unit Insulin Human Lispro (Insulin Lispro 100 Unit/Ml 3 Ml Vial) 0 unit SUBCUT Q6H [facility]; Protocol Last Admin: 05/15/23 11:24 Dose: Not Given Multivitamins/Vitamin C (Multivitamin Tablet) 1 tab PO DAILY [facility] Last Admin: 05/15/23 08:05 Dose: 1 tab Omeprazole (Omeprazole/Na Bicarb Oral Susp 20 Mg/10 Ml Ud Cup) 40 mg PO DAILY@0630 [facility] Last Admin: 05/15/23 06:21 Dose: 40 mg Thiamine HCl (Thiamine Hcl 100 Mg Tablet) 100 mg PO DAILY [facility] Last Admin: 05/15/23 08:05 Dose: 100 mg Home Medications Medication Instructions Recorded Confirmed Last Taken Type lamotrigine 200 mg tablet 200 mg PO BID 01/28/22 05/05/23 1 Month Ago History ~02/20/23 citalopram 40 mg tablet 40 mg PO DAILY 02/08/22 05/05/23 1 Month Ago History ~02/20/23 thiamine HCl (vitamin B1) 100 mg 100 mg PO DAILY 02/08/22 05/05/23 1 Month Ago History tablet ~02/20/23 zolpidem 5 mg tablet 1 tab PO BEDTIME PRN Sleep 03/14/22 05/05/23 1 Month Ago History ~02/20/23 quetiapine 400 mg tablet 1 tab PO BEDTIME 06/12/22 05/05/23 1 Month Ago History ~02/20/23 multivitamin (Daily Multi-Vitamin 1 tab PO DAILY 09/26/22 05/05/23 1 Month Ago History tablet) ~02/20/23 dextrose 40 % oral gel (Glutose-15) 1 ea PO DAILY PRN Hypoglycemia 03/23/23 05/05/23 1 Month Ago History ~02/20/23 Physical Exam Vital Signs and Narrative: Vital Signs: Last Vital Signs Temp 99.7 F 05/15/23 12:00 Pulse 87 05/15/23 12:00 Resp 22 H 05/15/23 12:00 BP 137/94 H 05/15/23 12:00 Pulse Ox 97 05/15/23 12:00 O2 Del Method Mechanical Ventil ation 05/15/23 13:00 O2 Flow Rate 21 05/07/23 03:00 FiO2 21 05/15/23 12:00 BMI result Body Mass Index 24.1 Intubated. Dependent for care. Traversing T4 ulcer of the posterior thoracic spine approximately 3 x 15 cm. Adherent oswald necrotic tissue obstructs granular progression. No surrounding erythema. No maceration beneath the foam border dressing. Healthy periwound without redness or streaking that might suggest cellulitis. Nummular sacral ulcer has similar appearance. The necrotic oswald slough is looser and removes bit easier in this location without instrumentation but is kept in place for now. No signs of infection. Results Labs 05/15/23 04:13 05/15/23 04:13 Labs: Laboratory Results - last 24 hr 05/14/23 05/14/23 05/15/23 17:26 23:52 04:13 MCV 98.5 H MCH 33.2 H MCHC 33.7 RDW 19.6 H Plt Count 164 D MPV 12.5 H Immature Gran % (Auto) 1.9 H Neut % (Auto) 79.2 H Lymph % (Auto) 13.4 L [place] % (Auto) 5.3 Eos % (Auto) 0.1 Baso % (Auto) 0.1 Lymph # (Auto) 1.5 [place] # (Auto) 0.6 Eos # (Auto) 0.0 Baso # (Auto) 0.0 Abs Immat Gran (auto) 0.21 H Absolute Neuts (auto) 9.0 H Absolute Nucleated RBC 0.030 H Nucleated RBC % (auto) 0.3 H VBG pH VBG pCO2 VBG pO2 VBG HCO3 VBG O2 Saturation VBG Base Excess Anion Gap 12 Estim Creat Clear Calc 181.7 Estimated GFR > 60 POC Glucose 357 H* 308 H Random Glucose 259 H Calcium 8.6 Phosphorus 2.7 Magnesium 1.8 Albumin 2.8 L 05/15/23 05/15/23 05/15/23 04:22 05:45 11:17 MCV MCH MCHC RDW Plt Count MPV Immature Gran % (Auto) Neut % (Auto) Lymph % (Auto) [place] % (Auto) Eos % (Auto) Baso % (Auto) Lymph # (Auto) [place] # (Auto) Eos # (Auto) Baso # (Auto) Abs Immat Gran (auto) Absolute Neuts (auto) Absolute Nucleated RBC Nucleated RBC % (auto) VBG pH 7.58 H VBG pCO2 35 VBG pO2 55 VBG HCO3 33 H VBG O2 Saturation 86.0 VBG Base Excess 10.9 Anion Gap Estim Creat Clear Calc Estimated GFR POC Glucose 209 H 99 Random Glucose Calcium Phosphorus Magnesium Albumin Assessment and Plan (1) Unstageable pressure ulcer of back: Status: Acute (2) Unstageable pressure ulcer of buttock: Status: Acute Plan 42-year-old male with thoracic and sacral ulcers of unclear origin, possibly related to prolonged down time, DTI, rhabdomyolysis or other etiology, present on hospital admission. They are quite stable today with silicone form border dressing which can support autolytic debridement. This is the recommended topical treatment for now until his underlying clinical picture improves. Once stable, a bedside surgical debridement of these areas with general surgery could be considered, but I would be inclined to hold off until his nutritional status can be optimized. Otherwise we're putting him at risk for infection if we can not granulate tissue to follow the surgical debridement. Surgical consult to hospitalist discretion but not recommended without tube feedings, TPN or other source of protein calorie nutrition. Time Spent With Patient Time: Total time managing care of this patient today ____ minutes.
[2023-05-15] MEDS: Dextrose 50 % 25 GM/50 ML SYRINGE IVPUSH ×2 (17:10→19:20)
[2023-05-16] VITALS (31 sets, daily range): BP systolic 108–148; BP diastolic 50–98; PULSE 70–117; RESP 12–114; TEMP 34.2–38.3; O2SAT 87–99; BMI 23.3
[2023-05-16 06:02] LABS: Albumin Level 3.5 g/dL (3.5-5.0); Anion Gap 13 (12-20); Blood Urea Nitrogen 11 mg/dL (9-16); Calcium 8.4 mg/dL (8.4-10.2); Carbon Dioxide 29 mmol/L (22-29); Chloride 99 mmol/L (96-108); Estimated Glomerular Filt Rate > 60; Glucose Random 229 mg/dL (60-115); Magnesium 1.7 mg/dL (1.6-2.6); Phosphorus 3.1 mg/dL (2.7-4.5); Potassium 3.3 mmol/L (3.3-5.1); Sodium 138 mmol/L (135-145)
[2023-05-16] MEDS: Thiamine HCL 100 MG TABLET PO (08:53)
--- NOTE | 2023-05-16 11:38 | PM.CCPN ---
Subjective Subjective Date of Service: 05/16/23 Interval History: 42-year-old gentleman with underlying history of bipolar disorder, alcohol abuse, diabetes mellitus admitted on 05/05/2023 after found unresponsive. On ER evaluation hypothermic and unable to protect airway requiring intubation. Hospital course significant for persistent encephalopathy, essentially with no improvement over the last 9 days. Evaluated by neurology with concern for possible anoxic encephalopathy. MRI brain consistent with diffuse injury. No events overnight. Critical Care Time (minutes): 30 Physical Exam Vital Signs: Vital Signs: Last Vital Signs Temp 100.4 F 05/16/23 11:00 Pulse 90 05/16/23 11:00 Resp 15 05/16/23 11:00 BP 148/98 H 05/16/23 11:00 Pulse Ox 94 05/16/23 11:00 O2 Del Method Mechanical Ventil ation 05/16/23 11:00 O2 Flow Rate 21 05/07/23 03:00 FiO2 25 05/16/23 11:00 BMI result Body Mass Index 23.3 Const: General: no acute distress and patient obtunded Orientation/consciousness: patient obtunded Eyes: Sclerae: sclerae normal Neck: Neck: Yes no lymphadenopathy, Yes trachea midline and Yes supple Resp: Auscultation: clear to auscultation bilaterally Cardio: Rate: regular rate Rhythm: regular rhythm Heart sounds: no gallops, no murmurs and no rubs GI: Palpation (GI): Soft to palpation and Other GI palpation findings present ( Nontender) Auscultation: normal bowel sounds Neuro: General: patient obtunded Extrem: General: Yes no pedal edema, No clubbing and No cyanosis Objective Data Labs 05/16/23 05:17 05/16/23 05:17 Labs: Laboratory Results - last 24 hr 05/15/23 05/15/23 05/15/23 17:07 17:09 17:24 WBC RBC Hgb Hct MCV MCH MCHC RDW Plt Count MPV Immature Gran % (Auto) Neut % (Auto) Lymph % (Auto) [place] % (Auto) Eos % (Auto) Baso % (Auto) Lymph # (Auto) [place] # (Auto) Eos # (Auto) Baso # (Auto) Abs Immat Gran (auto) Absolute Neuts (auto) Absolute Nucleated RBC Nucleated RBC % (auto) VBG pH VBG pCO2 VBG pO2 VBG HCO3 VBG O2 Saturation VBG Base Excess Sodium Potassium Chloride Carbon Dioxide Anion Gap BUN Creatinine Estim Creat Clear Calc Estimated GFR POC Glucose 17 L* 20 L* 121 H Random Glucose Calcium Phosphorus Magnesium Albumin 05/15/23 05/15/23 05/15/23 19:17 19:39 19:58 WBC RBC Hgb Hct MCV MCH MCHC RDW Plt Count MPV Immature Gran % (Auto) Neut % (Auto) Lymph % (Auto) [place] % (Auto) Eos % (Auto) Baso % (Auto) Lymph # (Auto) [place] # (Auto) Eos # (Auto) Baso # (Auto) Abs Immat Gran (auto) Absolute Neuts (auto) Absolute Nucleated RBC Nucleated RBC % (auto) VBG pH VBG pCO2 VBG pO2 VBG HCO3 VBG O2 Saturation VBG Base Excess Sodium Potassium Chloride Carbon Dioxide Anion Gap BUN Creatinine Estim Creat Clear Calc Estimated GFR POC Glucose 43 L* 147 H 132 H Random Glucose Calcium Phosphorus Magnesium Albumin 05/15/23 05/16/23 05/16/23 22:51 00:57 05:17 WBC 6.3 RBC 2.18 L Hgb 7.3 L Hct 21.8 L MCV 100.0 H MCH 33.5 H MCHC 33.5 RDW 19.9 H Plt Count 140 L MPV 12.3 Immature Gran % (Auto) 1.0 H Neut % (Auto) 77.3 H Lymph % (Auto) 15.0 L [place] % (Auto) 5.3 Eos % (Auto) 1.1 Baso % (Auto) 0.3 Lymph # (Auto) 0.9 L [place] # (Auto) 0.3 Eos # (Auto) 0.1 Baso # (Auto) 0.0 Abs Immat Gran (auto) 0.06 H Absolute Neuts (auto) 4.8 Absolute Nucleated RBC 0.000 Nucleated RBC % (auto) 0.0 VBG pH VBG pCO2 VBG pO2 VBG HCO3 VBG O2 Saturation VBG Base Excess Sodium 138 Potassium 3.3 Chloride 99 Carbon Dioxide 29 Anion Gap 13 BUN 11 Creatinine 0.43 L Estim Creat Clear Calc 207.0 Estimated GFR > 60 POC Glucose 154 H 187 H Random Glucose 229 H Calcium 8.4 Phosphorus 3.1 Magnesium 1.7 Albumin 3.5 05/16/23 05/16/23 05:24 05:57 WBC RBC Hgb Hct MCV MCH MCHC RDW Plt Count MPV Immature Gran % (Auto) Neut % (Auto) Lymph % (Auto) [place] % (Auto) Eos % (Auto) Baso % (Auto) Lymph # (Auto) [place] # (Auto) Eos # (Auto) Baso # (Auto) Abs Immat Gran (auto) Absolute Neuts (auto) Absolute Nucleated RBC Nucleated RBC % (auto) VBG pH 7.59 H VBG pCO2 41 VBG pO2 55 VBG HCO3 40 H VBG O2 Saturation 87.0 VBG Base Excess 17.0 Sodium Potassium Chloride Carbon Dioxide Anion Gap BUN Creatinine Estim Creat Clear Calc Estimated GFR POC Glucose 240 H Random Glucose Calcium Phosphorus Magnesium Albumin Microbiology Microbiology Results: Microbiology 05/05/23 15:09 Blood - Venous Blood Culture - Final No growth after 5 days. 05/05/23 16:20 Blood - Venous Blood Culture - Preliminary Clostridium sordellii Gram positive dmitri 05/05/23 21:13 Sputum - Induced Gram Stain - Final 05/05/23 21:13 Sputum - Induced Sputum Culture - Final Progress Note: A&P Assessment and plan (1) Unstageable pressure ulcer of buttock: Status: Acute (2) Unstageable pressure ulcer of back: Status: Acute (3) Diabetes mellitus: Status: Acute (4) Acute respiratory failure: Status: Acute (5) Encephalopathy: Status: Acute Plan Assessment: 42-year-old gentleman admitted with unresponsiveness with initially unrevealing CT head, however requiring intubation for airway protection, now with persistent encephalopathy with no improvement Plan: Neuro: MRI brain with diffuse injury, likely anoxic encephalopathy. Additional Neurology input requested. Cardiac: No acute issues. Pulmonary: Acute respiratory failure requiring ventilatory support for airway protection. Renal: No acute issues. Endo: No acute issues. Underlying diabetes mellitus. GI: No acute issues. ID: No acute issues Heme/Onc: No acute issues. Psych: No acute issues. Miscellaneous: No acute issues. Prophylaxis: Heparin, ppi Diet: Tube feeds Critical care time spent: 30 minutes Quality Stroke Does the patient have a stroke diagnosis?: No VTE Prior VTE?: No VTE Risk Level:: Medical - moderate - high VTE Device Contraindication: N/A - Device Ordered VTE Drug Contraindication: Treatment Not Tolerated
--- NOTE | 2023-05-16 18:11 | PC.NURSE ---
Pt repositioned, de sat to 88/89% with no improvement with deep suction or suction of oral secretions. resp at bedside. bags and flushes tube with little mucous return. neurology states he is not coming to bedside but will speak to family over phone. Son fede speaks with justo finch. neurologist to see pt tomorrow and speak with fluid jet cutter operator. family at bedside. low grade fevers throughout day. chest x ray earlier required ett to be advanced by 4 cm.
[2023-05-16 18:17] LABS: Glucose, Whole Blood 176 mg/dL (60-115)
[2023-05-16] MEDS: Chlorhexidine Gluc Oral Rinse 15 ML MOUTHWASH BUCCAL ×2 (18:44→21:59)
[2023-05-16] MEDS: Insulin Lispro 100 UNIT/ML 3 ML VIAL SUBCUT (18:44)
[2023-05-16] MEDS: Furosemide 40 MG/4 ML VIAL IVPUSH (21:35)
[2023-05-16 22:15] LABS: Anion Gap 10 (12-20); Blood Urea Nitrogen 11 mg/dL (9-16); Calcium 8.8 mg/dL (8.4-10.2); Carbon Dioxide 32 mmol/L (22-29); Chloride 98 mmol/L (96-108); Creatinine Clr Calc Pharmacy 174.6; Estimated Glomerular Filt Rate > 60; Glucose Random 191 mg/dL (60-115); Magnesium 1.7 mg/dL (1.6-2.6); Potassium 4.1 mmol/L (3.3-5.1); Sodium 136 mmol/L (135-145)
[2023-05-16] MEDS: Potassium Phosphate/NS 15 MMOL/250 ML PLAST..BAG 62.5 MMOL IV (23:09)
[2023-05-17] VITALS (30 sets, daily range): BP systolic 87–167; BP diastolic 33–91; PULSE 78–127; RESP 12–30; TEMP 34.9–39.6; O2SAT 10–100; BMI 21.4
--- NOTE | 2023-05-17 | EEG_ITS ---
This is a 16 channel EEG with an EKG lead. The patient is reported intubated during the tracing. Background EEG rhythm is very low amplitude with mixed theta, delta rhythm noted in the right hemispheric leads and no significant changes noted in left hemispheric leads other than low amplitude fast rhythm. No definite sharp waves or spikes were noted. No paroxysmal tendency was noted. There was no notation from donor technician of any movement or seizure. Cardiac lead did not reveal any significant abnormality. Photic stimulation and hyperventilation were not performed. IMPRESSION: Severe bihemispheric dysfunction, but no seizure activity was noted on this EEG. MD FAHAD Gonsales/GÓMEZ / [id number]
[2023-05-17 00:03] LABS: Glucose, Whole Blood 247 mg/dL (60-115)
[2023-05-17] MEDS: Insulin Lispro 100 UNIT/ML 3 ML VIAL SUBCUT ×5 (00:32→23:59)
--- NOTE | 2023-05-17 02:46 | PC.NURSE ---
CARE ASSUMED 19:00...NEUROLOGIC ASSESSMENT UNCHANGED FROM SHIFT REPORT...REMAINS OFF SEDATION >9 DAYS...UNRESPONSIVE TO VERBAL STILIMULI...DOES NOT OPEN EYES...PUPILS 1-2MM....NO GAG...WEAK COUGH WITH DEEP SUCTIONING...CLENCHES MOUTH WITH SUCTIONING....INTERMITTANT ORAL SUCKING MOTION...RHYTHMIC TWITCHING OF LEFT ARMINCREASED O2 NEE AT 9PM...SAO2 DOWN TO 86-87%...FIO2 TITRATED FROM 25% T0 50%...SUCTIONED SCANT SECRETIONS FROM ETT...BAGGED/LAVAGED W/O EFFECT...DESPITE LASIX 05/13 & 05/15 REMAIN FLUID BALANCE (+) 26 LITERS SINCE ADMISSION.....LASIX 40MG IV X1 GIVEN...CHEMISTRY DRAWN PRIOR TO LASIX...KPO4 15MMOL IV INFUSED OVER 4 HOURS...KENDRICK WITH APPROX 3000ML PALE YELLOW URINE SINCE RECEIPT OF LASIX...RECTAL TUBE EMPTIED 1000ML BROWN LIQUIED STOOL.....SAO2 IMPROVED TO 1005 WITH FIO2 50%...
[2023-05-17 05:25] LABS: VBG Base Excess 20.4 mmol/L; VBG HCO3 45 mmol/L (22-26); VBG pCO2 50 mmHg; VBG pH 7.55 (7.32-7.43); VBG pO2 57 mmHg
[2023-05-17 05:36] LABS: MANUAL DIFF FLAG NO
[2023-05-17 05:38] LABS: Basophils Percent Auto 0.2 % (0-2); Eosinophils Absolute Auto 0.1 X10*3/uL (0.0-0.4); Hematocrit 24.7 % (42.0-52.0); Hemoglobin 8.2 g/dl (14.0-18.0); Imm Gran Abs Auto 0.06 X10*3/uL (0.00-0.03); Imm Gran Pct Auto 0.6 % (0.0-0.4); Lymphocytes Percent Auto 10.1 % (20-40); Mean Corpuscular HGB Conc 33.2 g/dl (31.0-36.0); Mean Corpuscular Hemoglobin 33.1 pg (27.0-33.0); Mean Corpuscular Volume 99.6 fL (80.0-98.0); Mean Platelet Volume 12.2 fL (9.4-12.4); Monocytes Absolute Auto 0.6 X10*3/uL (0.1-1.2); Monocytes Percent Auto 6.2 % (2-11); Neutrophils Percent Auto 81.9 % (45-73); Platelet Count 141 X10*3/uL (160-400); Red Blood Count 2.48 X10*6/uL (4.60-5.80); Red Cell Distribution Width 19.8 % (11.0-16.0); White Blood Count 9.7 X10*3/uL (4.8-10.8)
[2023-05-17 05:58] LABS: Albumin Level 3.6 g/dL (3.5-5.0); Anion Gap 15 (12-20); Blood Urea Nitrogen 11 mg/dL (9-16); Calcium 9.4 mg/dL (8.4-10.2); Carbon Dioxide 34 mmol/L (22-29); Chloride 90 mmol/L (96-108); Creatinine Clr Calc Pharmacy 146.7; Estimated Glomerular Filt Rate > 60; Glucose Random 195 mg/dL (60-115); Magnesium 1.7 mg/dL (1.6-2.6); Potassium 3.8 mmol/L (3.3-5.1); Sodium 135 mmol/L (135-145)
[2023-05-17 06:01] LABS: Venous Blood Gas Refer to POC result
[2023-05-17 06:17] LABS: Glucose, Whole Blood 221 mg/dL (60-115)
[2023-05-17] MEDS: Omeprazole/Na Bicarb Oral Susp 20 MG/10 ML UD Cup 40 MG PO (06:18)
--- NOTE | 2023-05-17 08:47 | PM.NEUROCN ---
History of Present Illness Data of Consult Service Date: 05/17/23 Primary Care Provider: Beena Melo MD HPI Reason for consult: Encephalopathy 42 years old man with severe multifactorial encephalopathy including anoxia and toxic agents was last seen few days ago. His mental status has not improved and I was asked to see him again. He was not responsive to verbal commands. 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 Mother Diabetes Surgical History Surgical History No pertinent past surgical history Social History Social History Household Members: Unknown / Unable to assess Household Members Other:: with dog Housing: House Do you presently have visiting nurse or other home services: No Unable to assess alcohol history related to: Unable to respond Alcohol intake: current Alcohol intake frequency: 3 or more drinks per day Alcohol type: hard liquor Patient Tobacco Use Status: Never used Tobacco e-Cigarette/Vaping Use: Never Used Second Hand Smoke Exposure: No Use of substances other than those prescribed or required for medical reasons: Unknown Currently Displaying Signs/Symptoms of Drug Intoxication Withdrawal: No Advance Directives: Yes Advance Directives on File: Yes Advance Directives Date on File: 02/07/22 Do you have thoughts of harming others: None Do you have a plan to hurt others: No Plan Recently lost weight without trying: Unsure Nutrition Risks: Dental problems and Poor intake 0-25% >4 days Poor oral hygiene: Yes service: No Current occupational status: unemployed Meds Allergies Allergy/AdvReac Type Severity Reaction Status Date / Time meropenem [MEROPENEM] Allergy Unknown SWELLING Verified 09/25/22 22:45 penicillin G procaine Allergy Unknown itching Verified 09/25/22 22:45 Penicillins [PENICILLINS] Allergy Unknown SWELLING Verified 09/25/22 22:45 Active Medications: Current Medications Chlorhexidine Gluconate (Chlorhexidine Gluc Oral Rinse 15 Ml Mouthwash) 15 ml BUCCAL TID [facility] Last Admin: 05/16/23 21:59 Dose: 15 ml Dextrose (Dextrose 50 % 25 Gm/50 Ml Syringe) 25 gm IVPUSH Q15M PRN; Protocol PRN Reason: per Hypoglycemia Standing Ord. Last Admin: 05/15/23 19:20 Dose: 25 gm Folic Acid (Folic Acid 1 Mg Tablet) 1 mg PO DAILY [facility] Last Admin: 05/16/23 08:53 Dose: 1 mg Glucose (Glucose Gel 15 Gm Gel..Gram.) 15 gm PO Q15M PRN; Protocol PRN Reason: per Hypoglycemia Standing Ord. Norepinephrine Bitartrate (Levophed) 8 mg in 250 mls @ 0 mls/hr IV .Q0M [facility]; Protocol Last Titration: 05/09/23 12:30 Dose: Infused Insulin Glargine (Insulin Glargine,Hum.Rec.Anlog 100 Unit/Ml 10 Ml Vial) 20 unit SUBCUT DAILY [facility] Last Admin: 05/15/23 08:05 Dose: 20 unit Insulin Human Lispro (Insulin Lispro 100 Unit/Ml 3 Ml Vial) 0 unit SUBCUT Q6H [facility]; Protocol Last Admin: 05/17/23 06:18 Dose: 4 unit Levetiracetam (Levetiracetam 1,000 Mg Tablet) 1,000 mg PO ONCE ONE Stop: 05/17/23 08:41 Multivitamins/Vitamin C (Multivitamin Tablet) 1 tab PO DAILY [facility] Last Admin: 05/16/23 08:53 Dose: 1 tab Omeprazole (Omeprazole/Na Bicarb Oral Susp 20 Mg/10 Ml Ud Cup) 40 mg PO DAILY@0630 [facility] Last Admin: 05/17/23 06:18 Dose: 40 mg Thiamine HCl (Thiamine Hcl 100 Mg Tablet) 100 mg PO DAILY [facility] Last Admin: 05/16/23 08:53 Dose: 100 mg Home Medications Medication Instructions Recorded Confirmed Last Taken Type lamotrigine 200 mg tablet 200 mg PO BID 01/28/22 05/05/23 1 Month Ago History ~02/20/23 citalopram 40 mg tablet 40 mg PO DAILY 02/08/22 05/05/23 1 Month Ago History ~02/20/23 thiamine HCl (vitamin B1) 100 mg 100 mg PO DAILY 02/08/22 05/05/23 1 Month Ago History tablet ~02/20/23 zolpidem 5 mg tablet 1 tab PO BEDTIME PRN Sleep 03/14/22 05/05/23 1 Month Ago History ~02/20/23 quetiapine 400 mg tablet 1 tab PO BEDTIME 06/12/22 05/05/23 1 Month Ago History ~02/20/23 multivitamin (Daily Multi-Vitamin 1 tab PO DAILY 09/26/22 05/05/23 1 Month Ago History tablet) ~02/20/23 dextrose 40 % oral gel (Glutose-15) 1 ea PO DAILY PRN Hypoglycemia 03/23/23 05/05/23 1 Month Ago History ~02/20/23 Physical Exam Vital Signs: Vital Signs: Last Vital Signs Temp 102.6 F H 05/17/23 08:00 Pulse 124 H 05/17/23 08:00 Resp 22 H 05/17/23 08:00 BP 112/80 05/17/23 08:00 Pulse Ox 99 05/17/23 08:00 O2 Del Method Mechanical Ventil ation 05/17/23 08:00 O2 Flow Rate 21 05/07/23 03:00 FiO2 70 05/17/23 08:17 BMI result Body Mass Index 21.4 Neuro: Other: Intubated unresponsive not sedated for many days. His pupils were about 3 mm minimally reactive, compared to midline last time, with occasional left-sided eye movements. At the same time is left side of the face and left arm were jerking continuously. Reflexes were absent. Results Labs 05/17/23 05:08 05/17/23 05:08 Labs: Short CBC 05/17/23 Range/Units 05:08 WBC 9.7 (4.8-10.8) X10*3/uL Hgb 8.2 L (14.0-18.0) g/dl Hct 24.7 L (42.0-52.0) % Plt Count 141 L (160-400) X10*3/uL BMP 05/16/23 05/17/23 21:35 05:08 Sodium 136 135 Potassium 4.1 D 3.8 Chloride 98 90 L Carbon Dioxide 32 H 34 H BUN 11 11 Creatinine 0.51 0.57 Calcium 8.8 9.4 D Liver Function 05/17/23 Range/Units 05:08 Albumin 3.6 (3.5-5.0) g/dL MRI of brain was reviewed and findings noted. Microbiology Microbiology Results: Microbiology 05/05/23 15:09 Blood - Venous Blood Culture - Final No growth after 5 days. 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 This has resulted in yet another factor resulting in very poor prognosis for this man. For now, I recommend loading him with levetiracetam and obtaining an EEG. I had a detailed conversation with his son last night explaining him the nature of this type of brain injury, lack of any specific treatment, and the extent of involvement noted by his brain MRI. (2) Anoxic encephalopathy: Status: Acute Time Spent With Patient Time: Total time managing care of this patient today ____ minutes. Procedures Date of Service Date of Service: 05/17/23 Arterial Line Size (Gauge): 20
[2023-05-17] MEDS: Thiamine HCL 100 MG TABLET PO (08:48)
[2023-05-17] MEDS: Chlorhexidine Gluc Oral Rinse 15 ML MOUTHWASH BUCCAL ×3 (08:48→21:53)
[2023-05-17] MEDS: Multivitamin TABLET 1 TAB PO (08:49)
[2023-05-17] MEDS: Furosemide 40 MG/4 ML VIAL IVPUSH (08:49)
[2023-05-17] MEDS: Folic Acid 1 MG TABLET PO (08:49)
[2023-05-17] MEDS: levETIRAcetam in NaCl (iso-os) 1,000 MG/100 ML PIGGYBACK 400 MG IV (09:06)
--- NOTE | 2023-05-17 11:57 | P.PNCC_ITS ---
Subjective Subjective Date of Service: 05/17/23 Interval History: 42-year-old gentleman with underlying history of bipolar disorder, alcohol abuse, diabetes mellitus admitted on 05/05/2023 after found unresponsive. On ER evaluation hypothermic and unable to protect airway requiring intubation. Hospital course significant for persistent encephalopathy, essentially with no improvement over the last 9 days. Evaluated by neurology with concern for possible anoxic encephalopathy. MRI brain consistent with diffuse injury. Overnight with development of left upper extremity tremor. Critical Care Time (minutes): 30 Physical Exam 2 Vital Signs: Vital Signs: Last Vital Signs Temp 102.2 F H 05/17/23 10:58 Pulse 110 H 05/17/23 10:58 Resp 25 H 05/17/23 10:58 BP 103/64 05/17/23 10:58 Pulse Ox 93 05/17/23 10:58 O2 Del Method Mechanical Ventil ation 05/17/23 10:58 O2 Flow Rate 21 05/07/23 03:00 FiO2 70 05/17/23 11:35 BMI result Body Mass Index 21.4 Const: General: no acute distress, patient obtunded and other ( Jaundiced) Orientation/consciousness: patient obtunded Eyes: Sclerae: sclerae normal Neck: Neck: Yes no lymphadenopathy, Yes trachea midline and Yes supple Resp: Effort & Inspection: normal respiratory effort and no respiratory distress Auscultation: clear to auscultation bilaterally Cardio: Rate: tachycardic Rhythm: regular rhythm Heart sounds: no gallops, no murmurs and no rubs GI: Palpation (GI): Soft to palpation and Other GI palpation findings present ( Nontender) Auscultation: normal bowel sounds Neuro: General: patient obtunded Extrem: General: Yes no pedal edema, No clubbing and No cyanosis Objective Data Labs 05/17/23 05:08 05/17/23 05:08 Labs: Laboratory Results - last 24 hr 05/16/23 05/16/23 05/16/23 11:43 18:09 21:35 WBC RBC Hgb Hct MCV MCH MCHC RDW Plt Count MPV Immature Gran % (Auto) Neut % (Auto) Lymph % (Auto) [place] % (Auto) Eos % (Auto) Baso % (Auto) Lymph # (Auto) [place] # (Auto) Eos # (Auto) Baso # (Auto) Abs Immat Gran (auto) Absolute Neuts (auto) Absolute Nucleated RBC Nucleated RBC % (auto) VBG pH VBG pCO2 VBG pO2 VBG HCO3 VBG O2 Saturation VBG Base Excess Sodium 136 Potassium 4.1 D Chloride 98 Carbon Dioxide 32 H Anion Gap 10 L BUN 11 Creatinine 0.51 Estim Creat Clear Calc 174.6 Estimated GFR > 60 POC Glucose 217 H 176 H Random Glucose 191 H Calcium 8.8 Phosphorus 2.0 L Magnesium 1.7 Albumin 05/16/23 05/17/23 05/17/23 23:57 05:08 05:09 WBC 9.7 RBC 2.48 L Hgb 8.2 L Hct 24.7 L MCV 99.6 H MCH 33.1 H MCHC 33.2 RDW 19.8 H Plt Count 141 L MPV 12.2 Immature Gran % (Auto) 0.6 H Neut % (Auto) 81.9 H Lymph % (Auto) 10.1 L [place] % (Auto) 6.2 Eos % (Auto) 1.0 Baso % (Auto) 0.2 Lymph # (Auto) 1.0 L [place] # (Auto) 0.6 Eos # (Auto) 0.1 Baso # (Auto) 0.0 Abs Immat Gran (auto) 0.06 H Absolute Neuts (auto) 8.0 Absolute Nucleated RBC 0.000 Nucleated RBC % (auto) 0.0 VBG pH 7.55 H VBG pCO2 50 VBG pO2 57 VBG HCO3 45 H VBG O2 Saturation 88.0 VBG Base Excess 20.4 Sodium 135 Potassium 3.8 Chloride 90 L Carbon Dioxide 34 H Anion Gap 15 BUN 11 Creatinine 0.57 Estim Creat Clear Calc 146.7 Estimated GFR > 60 POC Glucose 247 H Random Glucose 195 H Calcium 9.4 D Phosphorus 3.0 Magnesium 1.7 Albumin 3.6 05/17/23 06:10 WBC RBC Hgb Hct MCV MCH MCHC RDW Plt Count MPV Immature Gran % (Auto) Neut % (Auto) Lymph % (Auto) [place] % (Auto) Eos % (Auto) Baso % (Auto) Lymph # (Auto) [place] # (Auto) Eos # (Auto) Baso # (Auto) Abs Immat Gran (auto) Absolute Neuts (auto) Absolute Nucleated RBC Nucleated RBC % (auto) VBG pH VBG pCO2 VBG pO2 VBG HCO3 VBG O2 Saturation VBG Base Excess Sodium Potassium Chloride Carbon Dioxide Anion Gap BUN Creatinine Estim Creat Clear Calc Estimated GFR POC Glucose 221 H Random Glucose Calcium Phosphorus Magnesium Albumin Microbiology Microbiology Results: Microbiology 05/05/23 15:09 Blood - Venous Blood Culture - Final No growth after 5 days. 05/05/23 16:20 Blood - Venous Blood Culture - Preliminary Clostridium sordellii Gram positive dmitri 05/05/23 21:13 Sputum - Induced Gram Stain - Final 05/05/23 21:13 Sputum - Induced Sputum Culture - Final Progress Note: A&P Assessment and plan (1) Anoxic encephalopathy: Status: Acute (2) Status epilepticus: Status: Acute (3) Unstageable pressure ulcer of buttock: Status: Acute (4) Unstageable pressure ulcer of back: Status: Acute (5) Diabetes mellitus: Status: Acute (6) Acute respiratory failure: Status: Acute Plan Assessment: 42-year-old gentleman admitted with unresponsiveness with initially unrevealing CT head, however requiring intubation for airway protection, now with persistent encephalopathy with no improvement Plan: Neuro: MRI brain with diffuse injury, likely anoxic encephalopathy. Additional Neurology input requested. Repeat EEG is pending. Cardiac: No acute issues. Pulmonary: Acute respiratory failure requiring ventilatory support for airway protection. Renal: No acute issues. Endo: No acute issues. Underlying diabetes mellitus. GI: No acute issues. ID: No acute issues Heme/Onc: No acute issues. Psych: No acute issues. Miscellaneous: No acute issues. Prophylaxis: Heparin, ppi Diet: Tube feeds Critical care time spent: 30 minutes Quality Stroke Does the patient have a stroke diagnosis?: No VTE Prior VTE?: No VTE Risk Level:: Medical - moderate - high VTE Device Contraindication: N/A - Device Ordered VTE Drug Contraindication: Treatment Not Tolerated
[2023-05-17 12:47] LABS: Glucose, Whole Blood 297 mg/dL (60-115)
[2023-05-17 16:14] LABS: Glucose, Whole Blood 128 mg/dL (60-115)
[2023-05-17] MEDS: Acetaminophen 325 MG TABLET 650 MG PO (16:30)
--- NOTE | 2023-05-17 17:19 | HO.SKINPHOTO ---
Location: Category: Stage: Length: Width: Depth: cm back of L knee; foam applied Location: Category: Stage: Length: Width: Depth: cm updated photo of mid-back wound Location: Category: Stage: Length: Width: Depth: cm stage 2 on back of head; gauze applied Location: Category: Stage: Length: Width: Depth: cm Location: Category: Stage: Length: Width: Depth: cm Location: Category: Stage: Length: Width: Depth: cm
[2023-05-17 17:46] LABS: Glucose, Whole Blood 154 mg/dL (60-115)
[2023-05-17 20:46] LABS: Anion Gap 17 (12-20); Blood Urea Nitrogen 16 mg/dL (9-16); Calcium 8.4 mg/dL (8.4-10.2); Carbon Dioxide 34 mmol/L (22-29); Chloride 89 mmol/L (96-108); Creatinine Clr Calc Pharmacy 132.7; Estimated Glomerular Filt Rate > 60; Glucose Random 195 mg/dL (60-115); Magnesium 1.7 mg/dL (1.6-2.6); Phosphorus 2.9 mg/dL (2.7-4.5); Potassium 3.7 mmol/L (3.3-5.1); Sodium 136 mmol/L (135-145)
[2023-05-17 23:56] LABS: Glucose, Whole Blood 303 mg/dL (60-115)
[2023-05-18] VITALS (20 sets, daily range): BP systolic 94–115; BP diastolic 64–80; PULSE 87–108; RESP 12–25; TEMP 35–39.2; O2SAT 95–98; BMI 21.1
[2023-05-18 04:55] LABS: VBG Base Excess 24.2 mmol/L; VBG HCO3 48 mmol/L (22-26); VBG pCO2 51 mmHg; VBG pH 7.58 (7.32-7.43); VBG pO2 62 mmHg
[2023-05-18 04:56] LABS: Venous Blood Gas Refer to POC result
[2023-05-18 04:58] LABS: Mean Corpuscular HGB Conc 32.7 g/dl (31.0-36.0); Mean Corpuscular Hemoglobin 33.3 pg (27.0-33.0); Mean Platelet Volume 11.7 fL (9.4-12.4); Platelet Count 143 X10*3/uL (160-400); Red Blood Count 2.04 X10*6/uL (4.60-5.80); Red Cell Distribution Width 19.6 % (11.0-16.0); White Blood Count 10.1 X10*3/uL (4.8-10.8)
[2023-05-18 04:59] LABS: Hematocrit 20.8 % (42.0-52.0); Hemoglobin 6.8 g/dl (14.0-18.0)
[2023-05-18 05:09] LABS: Alanine Aminotransferase 74 U/L (0-40); Albumin Level 3.2 g/dL (3.5-5.0); Alkaline Phosphatase 478 U/L (39-117); Anion Gap 15 (12-20); Aspartate Amino Transferase 81 U/L (5-37); Bilirubin Total 15.7 mg/dL (0.0-1.0); Blood Urea Nitrogen 17 mg/dL (9-16); Calcium 8.7 mg/dL (8.4-10.2); Carbon Dioxide 35 mmol/L (22-29); Chloride 89 mmol/L (96-108); Creatinine Clr Calc Pharmacy 149.3; Estimated Glomerular Filt Rate > 60; Glucose Random 194 mg/dL (60-115); Magnesium 1.8 mg/dL (1.6-2.6); Phosphorus 2.2 mg/dL (2.7-4.5); Potassium 3.8 mmol/L (3.3-5.1); Sodium 135 mmol/L (135-145); Total Protein 5.2 g/dL (6.5-8.0)
[2023-05-18 05:14] LABS: Mean Platelet Volume 11.6 fL (9.4-12.4); Platelet Count 142 X10*3/uL (160-400); Red Blood Count 1.97 X10*6/uL (4.60-5.80); Red Cell Distribution Width 19.6 % (11.0-16.0); White Blood Count 9.8 X10*3/uL (4.8-10.8)
[2023-05-18 05:17] LABS: Hematocrit 20.3 % (42.0-52.0); Hemoglobin 6.7 g/dl (14.0-18.0)
[2023-05-18 05:32] LABS: Band Neutrophils Percent 30 % (3-5); Eosinophils Absolute Manual 0.1 X10*3/uL (0.0-0.4); Eosinophils Percent Manual 1 % (0-4); Large Platelet PRESENT; Lymphocytes Absolute Manual 1.6 X10*3/uL (1.2-4.9); Lymphocytes Percent Manual 16 % (20-40); Macrocytosis 1+ (5-14) /OIF; Metamyelocytes Absolute 0.1 X10*3/uL; Metamyelocytes Percent 1 %; Monocytes Absolute Manual 0.5 X10*3/uL (0.1-1.2); Monocytes Percent Manual 5 % (2-11); Neutrophils Absolute Manual 7.8 X10*3/uL (2.0-8.3); Neutrophils Percent Manual 47 % (45-73); Platelet Estimate NORMAL (NORMAL); Platelet Morphology Comment NORMAL; RBC Morphology NOTED
[2023-05-18 05:33] LABS: Basophilic Stippling 2+ (3-5) /OIF; Dohle Bodies PRESENT; Pappenheimer Bodies PRESENT; Polychromasia 1+ (0-2) /OIF; Smudge Cells PRESENT; Target Cells 1+ (5-14) /OIF
[2023-05-18] MEDS: Potassium Phosphate/NS 15 MMOL/250 ML PLAST..BAG 62.5 MMOL IV (06:17)
[2023-05-18] MEDS: Omeprazole/Na Bicarb Oral Susp 20 MG/10 ML UD Cup 40 MG PO (06:25)
[2023-05-18 06:27] LABS: Glucose, Whole Blood 246 mg/dL (60-115)
[2023-05-18] MEDS: Insulin Lispro 100 UNIT/ML 3 ML VIAL SUBCUT ×2 (06:27→12:24)
[2023-05-18] MEDS: Thiamine HCL 100 MG TABLET PO (08:27)
[2023-05-18] MEDS: Folic Acid 1 MG TABLET PO (08:27)
[2023-05-18] MEDS: Chlorhexidine Gluc Oral Rinse 15 ML MOUTHWASH BUCCAL (08:27)
[2023-05-18] MEDS: Multivitamin TABLET 1 TAB PO (08:27)
--- NOTE | 2023-05-18 10:13 | MHC.CLN ---
F/U PT REMAINS INTUBATED CONTINUE ON PROMOTE AT MAX GOAL RATE 65ML/HR WITH 120ML FREE WATER FLUSHES Q 6 HRS TO PROVIDE 1560KCALS (26.5KCALS/KG), 97.5G PROTEIN (1.6G/KG), 1789ML TOTAL WATER FROM FORMULA AND FLUSHES (30.4ML/KG) TF WILL PROMOTE WOUND HEALING MONITOR TOLERANCE, RESIDUALS AND LYTES FOLLOWING WITH TEAM
--- NOTE | 2023-05-18 10:59 | PM.CCPN ---
Subjective Subjective Date of Service: 05/18/23 Interval History: 42-year-old gentleman with underlying history of bipolar disorder, alcohol abuse, diabetes mellitus admitted on 05/05/2023 after found unresponsive. On ER evaluation hypothermic and unable to protect airway requiring intubation. Hospital course significant for persistent encephalopathy, essentially with no improvement over the last 9 days. Evaluated by neurology with concern for possible anoxic encephalopathy. MRI brain consistent with diffuse injury. Repeat EEG with no seizure activity. No events overnight. Critical Care Time (minutes): 45 Physical Exam Vital Signs: Vital Signs: Last Vital Signs Temp 101.3 F H 05/18/23 10:00 Pulse 87 05/18/23 10:00 Resp 20 05/18/23 10:00 BP 107/74 05/18/23 10:00 Pulse Ox 95 05/18/23 10:00 O2 Del Method Mechanical Ventil ation 05/18/23 10:00 O2 Flow Rate 21 05/07/23 03:00 FiO2 35 05/18/23 10:00 BMI result Body Mass Index 21.1 Const: General: no acute distress, patient obtunded and other (Jaundiced) Orientation/consciousness: patient obtunded Eyes: Sclerae: sclerae normal EOM: EOMs intact bilaterally Neck: Neck: Yes no lymphadenopathy, Yes trachea midline and Yes supple Resp: Effort & Inspection: normal respiratory effort and no respiratory distress Auscultation: clear to auscultation bilaterally Cardio: Rate: regular rate Rhythm: regular rhythm Heart sounds: no gallops, no murmurs and no rubs GI: Palpation (GI): Soft to palpation and Other GI palpation findings present ( Nontender) Auscultation: normal bowel sounds Neuro: General: patient obtunded Extrem: General: No clubbing, No cyanosis and Yes edema (2+ bilateral) Objective Data Labs 05/18/23 05:08 05/18/23 04:43 Labs: Laboratory Results - last 24 hr 05/17/23 05/17/23 05/17/23 12:44 16:11 17:42 WBC RBC Hgb Hct MCV MCH MCHC RDW Plt Count MPV Immature Gran % (Auto) Neut % (Auto) Lymph % (Auto) [place] % (Auto) Eos % (Auto) Baso % (Auto) Lymph # (Auto) [place] # (Auto) Eos # (Auto) Baso # (Auto) Abs Immat Gran (auto) Absolute Neuts (auto) Absolute Nucleated RBC Nucleated RBC % (auto) Neutrophils % (Manual) Band Neutrophils % Lymphocytes % (Manual) Monocytes % (Manual) Eosinophils % (Manual) Metamyelocytes % Abs Neuts (Manual) Lymphocytes # (Manual) Monocytes # (Manual) Eosinophils # (Manual) Metamyelocytes # Smudge Cells Dohle Bodies Platelet Estimate Large Platelets Plt Morphology Comment RBC Morphology Polychromasia Basophilic Stippling Macrocytosis Pappenheimer Bodies Target Cells VBG pH VBG pCO2 VBG pO2 VBG HCO3 VBG O2 Saturation VBG Base Excess Sodium Potassium Chloride Carbon Dioxide Anion Gap BUN Creatinine Estim Creat Clear Calc Estimated GFR POC Glucose 297 H 128 H 154 H Random Glucose Calcium Phosphorus Magnesium Total Bilirubin AST ALT Alkaline Phosphatase Total Protein Albumin Blood Type Antibody Screen Crossmatch 05/17/23 05/17/23 05/18/23 20:00 23:48 04:43 WBC 10.1 RBC 2.04 L Hgb 6.8 L* Hct 20.8 L* MCV 102.0 H MCH 33.3 H MCHC 32.7 RDW 19.6 H Plt Count 143 L MPV 11.7 Immature Gran % (Auto) Cancelled Neut % (Auto) Cancelled Lymph % (Auto) Cancelled [place] % (Auto) Cancelled Eos % (Auto) Cancelled Baso % (Auto) Cancelled Lymph # (Auto) Cancelled [place] # (Auto) Cancelled Eos # (Auto) Cancelled Baso # (Auto) Cancelled Abs Immat Gran (auto) Cancelled Absolute Neuts (auto) Cancelled Absolute Nucleated RBC 0.000 Nucleated RBC % (auto) 0.0 Neutrophils % (Manual) 47 Band Neutrophils % 30 H Lymphocytes % (Manual) 16 L Monocytes % (Manual) 5 Eosinophils % (Manual) 1 Metamyelocytes % 1 Abs Neuts (Manual) 7.8 Lymphocytes # (Manual) 1.6 Monocytes # (Manual) 0.5 Eosinophils # (Manual) 0.1 Metamyelocytes # 0.1 Smudge Cells PRESENT Dohle Bodies PRESENT Platelet Estimate NORMAL Large Platelets PRESENT Plt Morphology Comment NORMAL RBC Morphology NOTED Polychromasia 1+ (0-2) Basophilic Stippling 2+ (3-5) Macrocytosis 1+ (5-14) Pappenheimer Bodies PRESENT Target Cells 1+ (5-14) VBG pH VBG pCO2 VBG pO2 VBG HCO3 VBG O2 Saturation VBG Base Excess Sodium 136 135 Potassium 3.7 3.8 Chloride 89 L 89 L Carbon Dioxide 34 H 35 H Anion Gap 17 15 BUN 16 17 H Creatinine 0.63 0.56 Estim Creat Clear Calc 132.7 149.3 Estimated GFR > 60 > 60 POC Glucose 303 H Random Glucose 195 H 194 H Calcium 8.4 D 8.7 Phosphorus 2.9 2.2 L Magnesium 1.7 1.8 Total Bilirubin 15.7 H AST 81 H ALT 74 H Alkaline Phosphatase 478 H Total Protein 5.2 L Albumin 3.2 L Blood Type Antibody Screen Crossmatch 05/18/23 05/18/23 05/18/23 04:49 05:08 06:24 WBC 9.8 RBC 1.97 L Hgb 6.7 L* Hct 20.3 L* MCV 103.0 H MCH 34.0 H MCHC 33.0 RDW 19.6 H Plt Count 142 L MPV 11.6 Immature Gran % (Auto) Cancelled Neut % (Auto) Cancelled Lymph % (Auto) Cancelled [place] % (Auto) Cancelled Eos % (Auto) Cancelled Baso % (Auto) Cancelled Lymph # (Auto) Cancelled [place] # (Auto) Cancelled Eos # (Auto) Cancelled Baso # (Auto) Cancelled Abs Immat Gran (auto) Cancelled Absolute Neuts (auto) Cancelled Absolute Nucleated RBC 0.000 Nucleated RBC % (auto) 0.0 Neutrophils % (Manual) Band Neutrophils % Lymphocytes % (Manual) Monocytes % (Manual) Eosinophils % (Manual) Metamyelocytes % Abs Neuts (Manual) Lymphocytes # (Manual) Monocytes # (Manual) Eosinophils # (Manual) Metamyelocytes # Smudge Cells Dohle Bodies Platelet Estimate Large Platelets Plt Morphology Comment RBC Morphology Polychromasia Basophilic Stippling Macrocytosis Pappenheimer Bodies Target Cells VBG pH 7.58 H VBG pCO2 51 VBG pO2 62 VBG HCO3 48 H VBG O2 Saturation 94.0 VBG Base Excess 24.2 Sodium Potassium Chloride Carbon Dioxide Anion Gap BUN Creatinine Estim Creat Clear Calc Estimated GFR POC Glucose 246 H Random Glucose Calcium Phosphorus Magnesium Total Bilirubin AST ALT Alkaline Phosphatase Total Protein Albumin Blood Type O Positive Antibody Screen NEGATIVE Crossmatch See Detail Microbiology Microbiology Results: Microbiology 05/05/23 15:09 Blood - Venous Blood Culture - Final No growth after 5 days. 05/05/23 16:20 Blood - Venous Blood Culture - Preliminary Clostridium sordellii Gram positive dmitri 05/05/23 21:13 Sputum - Induced Gram Stain - Final 05/05/23 21:13 Sputum - Induced Sputum Culture - Final Progress Note: A&P Assessment and plan (1) Anoxic encephalopathy: Status: Acute (2) Unstageable pressure ulcer of buttock: Status: Acute (3) Unstageable pressure ulcer of back: Status: Acute (4) Diabetes mellitus: Status: Acute (5) Acute respiratory failure: Status: Acute Plan Assessment: 42-year-old gentleman admitted with unresponsiveness with initially unrevealing CT head, however requiring intubation for airway protection, now with persistent encephalopathy with no improvement Plan: Neuro: MRI brain with diffuse injury, likely anoxic encephalopathy. EEG with no seizure activity. Appears to be persistently vegetative state. Cardiac: No acute issues. Pulmonary: Acute respiratory failure requiring ventilatory support for airway protection. Renal: No acute issues. Endo: No acute issues. Underlying diabetes mellitus. GI: No acute issues. ID: No acute issues Heme/Onc: No acute issues. Psych: No acute issues. Miscellaneous: No acute issues. Prophylaxis: Heparin, ppi Diet: Tube feeds Critical care time spent: 30 minutes Quality Stroke Does the patient have a stroke diagnosis?: No VTE Prior VTE?: No VTE Risk Level:: Medical - moderate - high VTE Device Contraindication: N/A - Device Ordered VTE Drug Contraindication: Treatment Not Tolerated
[2023-05-18 12:21] LABS: Glucose, Whole Blood 268 mg/dL (60-115)
--- NOTE | 2023-05-18 13:58 | PM.CCN ---
Critical Care Event Note Summary Date of Service: 05/18/23 Code activated: No Narrative: Overall Critical Care Time (minutes): 0
--- NOTE | 2023-05-18 14:01 | HO.HCP ---
Health Care Proxy Invocation Health Care Proxy Declaration: [facility] [place], on the date cited below, have determined that, Yeison Pereyra, lacks the capacity to make or communicate, informed health care decision. This determination is made in accordance with accepted standards of medical judgment and pursuant to [place] 201[place], the [place] Health Care Proxy Law. The cause, nature, extent and probable duration of the patient's inapacity are described below: Cause: persistent vegetative state Nature: Organic Extent: Severe Probable Duration of Patient's Incapacity: Persistent
--- NOTE | 2023-05-18 14:02 | PM.CCN ---
Critical Care Event Note Summary Date of Service: 05/18/23 Code activated: No Narrative: Like of neurologic recovery, MRI findings, EEG findings, and neurologist opinion regarding patient's current persistent vegetative state and essentially absence of positive prognosis discussed with the healthcare proxy/family who may decision to switch goals of care to palliation. Code status switched to comfort measures only. Will proceed with extubation. Critical Care Time (minutes): 0
[2023-05-18] MEDS: fentaNYL citrate/NS 1,000 MCG/100 ML PLAST..BAG 5 MCG IVCONT (14:15)
[2023-05-18] MEDS: fentaNYL citrate/PF 100 MCG/2 ML VIAL IVPUSH (14:30)
--- NOTE | 2023-05-18 15:15 | MHC.CM.PN ---
EMR REVIEWED AND PER MD ROUNDS, PT TO BE MADE RECEPTION AGENT AFTER MD DISCUSSION WITH FAMILY. PT TO EXTUBATED. CM WILL CONTINUE TO FOLLOW .
--- NOTE | 2023-05-18 19:11 | P.EN_ITS ---
Event Note Date of Service: 05/18/23 Event Note: called to pronounce this pt who was on CERTIFIED ADAPTIVE PHYSICAL EDUCATOR status for anoxic brain injury by RN unresponsive, asystole on monitor no heart sounds, no spontaneous breaths, pupils fixed/dilated, no corneal reflex time of 1838 family at bedside; condolences offered Time Spent With Patient Time: Total time managing care of this patient today ____ minutes.
--- NOTE | 2023-05-18 19:26 | PC.NURSE ---
Pt's family spoken to by MD Kiser at great length about pt's vegetative state per Neurology. Pt's family decided to make pt SENIOR LINUX SYSTEMS ADMINISTRATOR. At approximately 1420, pt's code status changed; IV Fentanyl gtt started per order; IVP Fentanyl given and then pt terminally extubated at 1435. Pt's TOD at 1838; pronounced by hospitalist MD Foy who assessed pt at bedside. Pt's family at bedside at this time and was made aware. [facility] contacted; case# [id number]; spoke with Hope who declined organ and Glo later who declined the tissue donation also.
--- NOTE | 2023-05-19 10:43 | PM.DDS ---
Discharge Sum: Prov Provider Primary care physician: Beena Melo MD Consults: 05/08/23 09:21 Consult to Wound Care Stat Consulting Provider: Jaylyn Lyons Reason for consultation: DTI coccyx, mid back. Rhabdo with unknown down time. Has provider been notified: Yes 05/08/23 16:32 Consult to General Surgery Routine Consulting Provider: [facility] Reason for consultation: Wound debridement Has provider been notified: Yes 05/10/23 08:56 Consult to Neurology Routine Consulting Provider: Neurology Brian huffman [facility] Reason for consultation: EEG pending/severe encephalopathy Has provider been notified: Yes 05/14/23 18:27 Consult to Wound Care Stat Consulting Provider: Jaylyn Lyons Reason for consultation: Worsening Unstagable Coccyx & Upper back 05/16/23 10:57 Consult to Neurology Routine Consulting Provider: Neurology Brian huffman [facility] Reason for consultation: consult fransico on imaging Discharge Sum: Diag PCOD Cause of : Anoxia of brain Contributing Factors (1) Anoxic encephalopathy: (2) Unstageable pressure ulcer of buttock: (3) Unstageable pressure ulcer of back: (4) Diabetes mellitus: (5) Acute respiratory failure: (6) Pulmonary aspiration of gastric contents: (7) ETOH abuse: Discharge Sum: Summary Date and Time Date of admission: 05/05/23 19:47 Summary Details: 42-year-old gentleman with underlying history of bipolar disorder, alcohol abuse, diabetes mellitus admitted on 05/05/2023 after found unresponsive with stigmata of aspiration of gastric contents. On ER evaluation hypothermic and unable to protect airway requiring intubation. Hospital course significant for persistent encephalopathy, essentially with no improvement over 11 days. Evaluated by neurology with concern for possible anoxic encephalopathy. MRI brain consistent with diffuse anoxic injury. Repeat EEG with no seizure activity. Patient essentially in persistent vegetative state. Neurologic high intends and extremity poor prognosis discussed with patient's healthcare proxy and family who decided to switch goals of care to palliation. Code status changed to comfort measures only. Patient extubated on 05/18/2023 and passed in comfort with family at bedside at 18:38 on 05/18/2023. Additional Data Attending physician: Darrell Kiser MD
== END 2023-05-18 18:38 | disposition expired | DRG 870 ==
LOC: HO.ED 17:03 → HO.EDOVER 20:05 → HO.ICU 20:29
PROVIDERS: Emergency Medicine; Internal Medicine Cardiovascular Disease; Internal Medicine Critical Care Medicine; Nurse Practitioner Family; Registered Nurse Community Health; Admitting Provider Physician Assistant Medical; Emergency Provider Emergency Medicine; PCP Internal Medicine; Visit Provider Internal Medicine Pulmonary Disease
DX: A41.9 Sepsis, unspecified organism (principal); D65 Disseminated intravascular coagulation [defibrination syndrome]; R65.21 Severe sepsis with septic shock; G93.41 Metabolic encephalopathy; K72.01 Acute and subacute hepatic failure with coma; M62.82 Rhabdomyolysis; E87.3 Alkalosis; D59.4 Other nonautoimmune hemolytic anemias; D61.818 Other pancytopenia; I96 Gangrene, not elsewhere classified; G93.1 Anoxic brain damage, not elsewhere classified; Z99.11 Dependence on respirator [ventilator] status; R68.0 Hypothermia, not associated with low environmental temperature; L89.621 Pressure ulcer of left heel, stage 1; K59.00 Constipation, unspecified; L89.611 Pressure ulcer of right heel, stage 1; L89.152 Pressure ulcer of sacral region, stage 2; L89.892 Pressure ulcer of other site, stage 2; E83.42 Hypomagnesemia; D70.9 Neutropenia, unspecified; E10.51 Type 1 diabetes mellitus with diabetic peripheral angiopathy without gangrene; E87.6 Hypokalemia; F10.20 Alcohol dependence, uncomplicated; K70.30 Alcoholic cirrhosis of liver without ascites; F25.9 Schizoaffective disorder, unspecified; K76.0 Fatty (change of) liver, not elsewhere classified; Z51.5 Encounter for palliative care; G25.3 Myoclonus; E10.649 Type 1 diabetes mellitus with hypoglycemia without coma; F19.90 Other psychoactive substance use, unspecified, uncomplicated; Z20.822 Contact with and (suspected) exposure to COVID-19; Z91.199 Patient's noncompliance with other medical treatment and regimen due to unspecified reason; Z79.899 Other long term (current) drug therapy
CPT/HCPCS: 0241U; 36415; 36600; 70450; 70551; 71045; 71250; 72125; 74018; 74176; 76705; 80048; 80053; 80076; 80143; 80179; 80202; 80307; 81001; 82040; 82140; 82272; 82550; 82693; 82803; 82947; 83036; 83605; 83615; 83690; 83735; 83880; 84100; 84439; 84443; 84484; 85007; 85025; 85027; 85610; 85730; 86704; 86706; 86709; 86803; 86850; 86900; 86901; 86923; 87040; 87070; 87076; 87077; 87185; 87186; 87205; 87340; 87468; 87469; 87478; 87484; 87798; 93005; 93306; 94002; 94003; 94799; 95816; 99285; C1758; J0330; J0692; J0696; J1940; J1953; J1956; J2060; J2250; J3010; J3370; J3371; J3475; P9016; P9047; P9073

== ENCOUNTER 2023-05-05 19:47 | Outpatient (BNV) | payer OTHER, SELFPAY | END 2023-05-07 07:00 | PROVIDERS: Admitting Provider Physician Assistant Medical; Emergency Provider Emergency Medicine; PCP Internal Medicine; Visit Provider Internal Medicine | DX: I34.0 Nonrheumatic mitral (valve) insufficiency (principal); I36.1 Nonrheumatic tricuspid (valve) insufficiency | CPT/HCPCS: 93306 ==

== ENCOUNTER → 2023-05-05 19:47 | Outpatient (BNV) | payer OTHER, SELFPAY | PROVIDERS: Admitting Provider Physician Assistant Medical; Emergency Provider Emergency Medicine; PCP Internal Medicine; Visit Provider Surgery | DX: L89.90 Pressure ulcer of unspecified site, unspecified stage (principal) | CPT/HCPCS: 99222 ==

== ENCOUNTER → 2023-05-05 19:47 | Outpatient (BNV) | payer OTHER, SELFPAY | PROVIDERS: Admitting Provider Physician Assistant Medical; Emergency Provider Emergency Medicine; PCP Internal Medicine; Visit Provider Internal Medicine Pulmonary Disease | DX: G93.1 Anoxic brain damage, not elsewhere classified (principal); J96.00 Acute respiratory failure, unspecified whether with hypoxia or hypercapnia; E11.9 Type 2 diabetes mellitus without complications; L89.300 Pressure ulcer of unspecified buttock, unstageable; L89.100 Pressure ulcer of unspecified part of back, unstageable; T17.918A Gastric contents in respiratory tract, part unspecified causing other injury, initial encounter; F10.10 Alcohol abuse, uncomplicated | CPT/HCPCS: 99238; 99291 ==

== ENCOUNTER → 2023-05-05 19:47 | Outpatient (BNV) | payer OTHER, SELFPAY | PROVIDERS: Admitting Provider Physician Assistant Medical; Emergency Provider Emergency Medicine; PCP Internal Medicine; Visit Provider Physician Assistant Medical | DX: G93.41 Metabolic encephalopathy (principal); L89.90 Pressure ulcer of unspecified site, unspecified stage; D70.9 Neutropenia, unspecified; D61.818 Other pancytopenia; D59.4 Other nonautoimmune hemolytic anemias; D65 Disseminated intravascular coagulation [defibrination syndrome] | CPT/HCPCS: 36620; 99291; 99292 ==